=== PATIENT | female | born 1960 | race Caucasian/White ===

== ENCOUNTER 2016-04-11 23:27 | Inpatient (IN) | payer MEDICARE, OTHER ==
[~2016-04-11] VITALS: Ht 147.3 cm; Wt 102.1 kg
[~2016-04-11 23:27] MED LIST: ASPI81TA9 PO; BUME2TAB PO; GABA-585 PO; MAGN200T PO; METO5TAB4 PO; MULT-245 PO; NPH,100V4 SQ; POTA20TA12 PO
[2016-04-12] VITALS (24 sets, daily range): BP systolic 76–135; BP diastolic 46–90
[2016-04-12] MEDS ORDERED: ACETAMINOPHEN 325 MG TABLET. PO PRN (02:30)
[2016-04-12] MEDS ORDERED: ONDANSETRON PF 4 MG/2 ML VIAL. IV PRN (02:30)
[2016-04-12 02:45] LABS: BASO % 0 % (0-3); EOS % 0 % (0-3); HEMATOCRIT 29.4 % (36.0-47.0); HEMOGLOBIN 9.8 g/dL (12.0-15.5); LYMPH # 0.3 x10^3/uL (1.0-4.8); LYMPH % 2 % (24-48); MEAN CORPUSCULAR HEMOGLOBIN 30 pg (25-35); MEAN CORPUSCULAR HGB CONC 33 g/dL (31-37); MEAN CORPUSCULAR VOLUME 91 fL (79-100); MONO % 3 % (0-9); NEUT % 95 % (31-73); PLATELET COUNT 76 x10^3/uL (140-400); RED BLOOD COUNT 3.22 x10^6/uL (3.50-5.40); RED CELL DISTRIBUTION WIDTH 15.6 % (11.5-14.5)
[2016-04-12] MEDS: FENTANYL PF 100 MCG/2 ML VIAL. IV PRN ×4 (02:59→20:55)
[2016-04-12 03:00] LABS: CALCIUM 7.9 mg/dL (8.5-10.1); CREATININE 3.9 mg/dL (0.6-1.0); POTASSIUM 5.7 mmol/L (3.5-5.1)
[2016-04-12 03:15] LABS: ALBUMIN 2.5 g/dL (3.4-5.0); ALBUMIN/GLOBULIN RATIO 0.7 (1.0-1.7); MAGNESIUM 1.5 mg/dL (1.8-2.4); TOTAL BILIRUBIN 0.9 mg/dL (0.2-1.0); TOTAL PROTEIN 6.1 g/dL (6.4-8.2)
[2016-04-12] MEDS: ACETAMINOPHEN 650 MG SUPP.RECT. PR PRN (03:36)
[2016-04-12] MEDS: NYSTATIN TOPICAL POWDER 15GM BOTTLE. TP SCH ×3 (03:42→20:55)
[2016-04-12] MEDS ORDERED: DEXTROSE 50% 25 GM / 50ML DISP.SYRIN. IV PRN (04:00)
[2016-04-12 04:31] LABS: PLT ESTIMATE DECREASED (ADEQUATE)
[2016-04-12 04:32] LABS: POLYCHROMASIA SLIGHT; TOXIC GRANULATION SLIGHT
[2016-04-12] MEDS: HALOPERIDOL LACT 5 MG/ML VIAL. IVP PRN (05:28)
[2016-04-12] MEDS: NOREPINEPHRINE VIAL 8 MG in IV NORMAL SALINE 250ML 250 ML IV PRN (05:36)
[2016-04-12] MEDS ORDERED: DIALYSIS PATIENT. MC PRN ×2 (06:30→16:30)
--- NOTE | 2016-04-12 07:53 | PDOC ---
Provider Note Provider Note Full note dictated. Unclear etiology of multiorgan failure, no clear UTI/PNA but she is septic with increased lactate, rosibel, and procal. May be simply acute on chronic syst HF. Will follow. Thx for consult ANTONELLA LANCASTER MD Apr 12, 2016 07:53
[2016-04-12] MEDS: FAMOTIDINE 20 MG/2 ML VIAL IVP SCH ×2 (08:48→20:53)
[2016-04-12] MEDS: ELECTROLYTE (ICU) PROTOCOL. MC SCH (09:00)
[2016-04-12] MEDS ORDERED: CEFTRIAXONE SODIUM 1 GM in IV NORMAL SALINE 50ML 50 ML IV SCH (09:00)
--- NOTE | 2016-04-12 09:20 | RAD ---
Single view chest History:Congestive heart failure An AP view of the chest is submitted. Comparison: 03/08/2013. Findings: There is no significant infiltrate, pleural effusion, or pneumothorax. The pericardial cardiac silhouette appears enlarged although could be accentuated by differences in technique. There is now right internal jugular venous catheter with the tip in superior vena cava. There is now single lead left electronic cardiac device. Impression: Pericardial cardiac silhouette appears somewhat more prominent than previously although possibly accentuated by differences in technique. There is no significant pleural fluid. There is now right internal jugular venous catheter, no pneumothorax.
[2016-04-12] MEDS: INSULIN ASPART 300 UNITS/3 ML INSULN.PEN SQ SCH ×3 (09:23→17:00)
--- NOTE | 2016-04-12 09:44 | PDOC1 ---
History and Physical Past Medical History Cardiovascular: HTN Pulmonary: COPD Renal/: Chronic renal failure Past Surgical History Past Surgical History: Hysterectomy Family History Family History: Diabetes, Hypertension Social History ALCOHOL: rare Current Medications Current Medications Current Medications Medications (Trade) Dose Ordered Sig/Susan Start Time Stop Time Status Last Admin Dose Admin Acetaminophen (Tylenol) 650 mg PRN Q6HRS PRN 04/12/16 03:30 04/12/16 03:36 650 MG Ceftriaxone Sodium/Sodium Chloride (Rocephin/Iv Sodium Chloride 0.9% 50ml) 50 ml @ 100 mls/hr Q24H 04/12/16 09:00 04/12/16 08:48 100 MLS/HR Dextrose 12.5 gm PRN Q15MIN PRN 04/12/16 04:00 Famotidine (Pepcid) 20 mg BID 04/12/16 09:00 04/12/16 08:48 20 MG Fentanyl Citrate (Fentanyl 2ml Vial) 25 mcg PRN Q1HR PRN 04/12/16 02:30 04/12/16 02:59 25 MCG Fentanyl Citrate 50 mcg 50 mcg PRN Q1HR PRN 04/12/16 02:30 Haloperidol Lactate (Haldol) 5 mg PRN Q6HRS PRN 04/12/16 02:30 04/12/16 05:28 5 MG Info 1 ea DAILY 04/12/16 09:00 Info 1 each 1 each PRN DAILY PRN 04/12/16 06:30 Insulin Aspart (Novolog) 0-9 UNITS TIDWMEALS 04/12/16 08:00 04/12/16 09:23 3 UNITS Levofloxacin/ Dextrose 100 ml @ 100 mls/hr 1X ONCE 04/12/16 08:00 04/12/16 08:59 DC 04/12/16 08:48 100 MLS/HR Norepinephrine Bitartrate/Sodium Chloride (Levophed Vial/ Iv Sodium Chloride 0.9% 250ml) 258 ml @ 0 mls/hr CONT PRN 04/12/16 02:30 04/12/16 05:36 3.8 MLS/HR Nystatin (Nystop) 1 gabrielle BID 04/12/16 03:30 04/12/16 09:25 1 GABRIELLE Ondansetron HCl (Zofran) 4 mg PRN Q6HRS PRN 04/12/16 02:30 Piperacillin Sod/ Tazobactam Sod 3.375 gm/Sodium Chloride 50 ml @ 100 mls/hr Q8HRS 04/12/16 14:00 Allergies Allergies Allergies Coded Allergies Type Severity Reaction Last Updated Verified sulfamethoxazole Allergy Severe Hives 03/18/13 Yes trimethoprim Allergy Severe Hives 03/18/13 Yes venom-honey bee Allergy Severe Anaphylaxis 03/18/13 Yes ROS Review of System CONSTITUTIONAL: No fever or chills EYES: No recent changes SKIN: No rash or itching Physical Exam Physical Exam GEN.: No apparent distress. Alert On room air HEENT: Head is normocephalic, atraumatic NECK: Supple. no jvd LUNGS: . rales normal effort HEART: RRR, S1, S2 present. Peripheral pulses intact ABDOMEN: Soft, nontender. Positive bowel sounds. EXTREMITIES: Without any cyanosis. NEUROLOGIC: AMS PSYCHIATRIC: AMS SKIN: No visible ulcerations Vitals Vitals Vital Signs Date Time Temp Pulse Resp B/P Pulse Ox O2 Delivery O2 Flow Rate FiO2 04/12/16 06:00 116 24 104/61 100 Nasal Cannula 2.0 04/12/16 05:00 98.9 98.9 Labs Labs Laboratory Tests Test 04/12/16 02:30 04/12/16 09:19 White Blood Count 13.0x10^3/uL (4.0-11.0) Red Blood Count 3.22x10^6/uL (3.50-5.40) Hemoglobin 9.8g/dL (12.0-15.5) Hematocrit 29.4% (36.0-47.0) Mean Corpuscular Volume 91fL (79-100) Mean Corpuscular Hemoglobin 30pg (25-35) Mean Corpuscular Hemoglobin Concent 33g/dL (31-37) Red Cell Distribution Width 15.6% (11.5-14.5) Platelet Count 76x10^3/uL (140-400) Neutrophils (%) (Auto) 95% (31-73) Lymphocytes (%) (Auto) 2% (24-48) Monocytes (%) (Auto) 3% (0-9) Eosinophils (%) (Auto) 0% (0-3) Basophils (%) (Auto) 0% (0-3) Neutrophils # (Auto) 12.3x10^3uL (1.8-7.7) Lymphocytes # (Auto) 0.3x10^3/uL (1.0-4.8) Monocytes # (Auto) 0.4x10^3/uL (0.0-1.1) Eosinophils # (Auto) 0.0x10^3/uL (0.0-0.7) Basophils # (Auto) 0.0x10^3/uL (0.0-0.2) Segmented Neutrophils % 54% (35-66) Band Neutrophils % 40% (0-9) Lymphocytes % 1% (24-48) Atypical Lymphocytes % (Manual) 1% (0-0) Monocytes % 2% (0-10) Metamyelocytes % 2% (0-0) Toxic Granulation Slight Platelet Estimate Decreased (ADEQUATE) Polychromasia Slight Sodium Level 128mmol/L (136-145) Potassium Level 5.7mmol/L (3.5-5.1) Chloride Level 95mmol/L (98-107) Carbon Dioxide Level 19mmol/L (21-32) Anion Gap 14 (6-14) Blood Urea Nitrogen 77mg/dL (7-20) Creatinine 3.9mg/dL (0.6-1.0) Estimated GFR (Cockcroft-Gault) 12.0 BUN/Creatinine Ratio 20 (6-20) Glucose Level 318mg/dL (70-99) Lactic Acid Level 5.3mmol/L (0.4-2.0) Calcium Level 7.9mg/dL (8.5-10.1) Magnesium Level 1.5mg/dL (1.8-2.4) Total Bilirubin 0.9mg/dL (0.2-1.0) Aspartate Amino Transf (AST/SGOT) 907U/L (15-37) Alanine Aminotransferase (ALT/SGPT) 751U/L (14-59) Alkaline Phosphatase 50U/L (46-116) Troponin I Quantitative 2.934ng/mL (0.000-0.055) Total Protein 6.1g/dL (6.4-8.2) Albumin 2.5g/dL (3.4-5.0) Albumin/Globulin Ratio 0.7 (1.0-1.7) Procalcitonin 73.42ng/mL (0.00-0.10) Glucose (Fingerstick) 204mg/dL (70-99) Laboratory Tests Test 04/12/16 02:30 04/12/16 09:19 White Blood Count 13.0x10^3/uL (4.0-11.0) Red Blood Count 3.22x10^6/uL (3.50-5.40) Hemoglobin 9.8g/dL (12.0-15.5) Hematocrit 29.4% (36.0-47.0) Mean Corpuscular Volume 91fL (79-100) Mean Corpuscular Hemoglobin 30pg (25-35) Mean Corpuscular Hemoglobin Concent 33g/dL (31-37) Red Cell Distribution Width 15.6% (11.5-14.5) Platelet Count 76x10^3/uL (140-400) Neutrophils (%) (Auto) 95% (31-73) Lymphocytes (%) (Auto) 2% (24-48) Monocytes (%) (Auto) 3% (0-9) Eosinophils (%) (Auto) 0% (0-3) Basophils (%) (Auto) 0% (0-3) Neutrophils # (Auto) 12.3x10^3uL (1.8-7.7) Lymphocytes # (Auto) 0.3x10^3/uL (1.0-4.8) Monocytes # (Auto) 0.4x10^3/uL (0.0-1.1) Eosinophils # (Auto) 0.0x10^3/uL (0.0-0.7) Basophils # (Auto) 0.0x10^3/uL (0.0-0.2) Segmented Neutrophils % 54% (35-66) Band Neutrophils % 40% (0-9) Lymphocytes % 1% (24-48) Atypical Lymphocytes % (Manual) 1% (0-0) Monocytes % 2% (0-10) Metamyelocytes % 2% (0-0) Toxic Granulation Slight Platelet Estimate Decreased (ADEQUATE) Polychromasia Slight Sodium Level 128mmol/L (136-145) Potassium Level 5.7mmol/L (3.5-5.1) Chloride Level 95mmol/L (98-107) Carbon Dioxide Level 19mmol/L (21-32) Anion Gap 14 (6-14) Blood Urea Nitrogen 77mg/dL (7-20) Creatinine 3.9mg/dL (0.6-1.0) Estimated GFR (Cockcroft-Gault) 12.0 BUN/Creatinine Ratio 20 (6-20) Glucose Level 318mg/dL (70-99) Lactic Acid Level 5.3mmol/L (0.4-2.0) Calcium Level 7.9mg/dL (8.5-10.1) Magnesium Level 1.5mg/dL (1.8-2.4) Total Bilirubin 0.9mg/dL (0.2-1.0) Aspartate Amino Transf (AST/SGOT) 907U/L (15-37) Alanine Aminotransferase (ALT/SGPT) 751U/L (14-59) Alkaline Phosphatase 50U/L (46-116) Troponin I Quantitative 2.934ng/mL (0.000-0.055) Total Protein 6.1g/dL (6.4-8.2) Albumin 2.5g/dL (3.4-5.0) Albumin/Globulin Ratio 0.7 (1.0-1.7) Procalcitonin 73.42ng/mL (0.00-0.10) Glucose (Fingerstick) 204mg/dL (70-99) VTE Prophylaxis Ordered VTE Prophylaxis Devices: Yes VTE Pharmacological Prophylaxi: Contraindicated TEDDY CARLSON MD Apr 12, 2016 09:44
[2016-04-12] MEDS ORDERED: CRESTOR20 MG PO (10:02)
[2016-04-12] MEDS ORDERED: GABA-586 PO (10:02)
[2016-04-12] MEDS ORDERED: LISI-338 PO (10:02)
[2016-04-12] MEDS ORDERED: PROAIR HFA8.5 GM INH (10:02)
[2016-04-12] MEDS ORDERED: GLIM4TAB2 PO (10:02)
[2016-04-12] MEDS ORDERED: CHLO25TA PO ×2 (10:02→10:06)
[2016-04-12] MEDS ORDERED: MAGN250T5 PO (10:06)
--- NOTE | 2016-04-12 10:38 | PDOC ---
Infectious Disease Note Vital Sign Vital Signs Vital Signs Date Time Temp Pulse Resp B/P Pulse Ox O2 Delivery O2 Flow Rate FiO2 04/12/16 06:00 116 24 104/61 100 Nasal Cannula 2.0 04/12/16 05:00 98.9 98.9 Labs Lab Laboratory Tests Test 04/12/16 02:30 04/12/16 09:19 White Blood Count 13.0x10^3/uL (4.0-11.0) Red Blood Count 3.22x10^6/uL (3.50-5.40) Hemoglobin 9.8g/dL (12.0-15.5) Hematocrit 29.4% (36.0-47.0) Mean Corpuscular Volume 91fL (79-100) Mean Corpuscular Hemoglobin 30pg (25-35) Mean Corpuscular Hemoglobin Concent 33g/dL (31-37) Red Cell Distribution Width 15.6% (11.5-14.5) Platelet Count 76x10^3/uL (140-400) Neutrophils (%) (Auto) 95% (31-73) Lymphocytes (%) (Auto) 2% (24-48) Monocytes (%) (Auto) 3% (0-9) Eosinophils (%) (Auto) 0% (0-3) Basophils (%) (Auto) 0% (0-3) Neutrophils # (Auto) 12.3x10^3uL (1.8-7.7) Lymphocytes # (Auto) 0.3x10^3/uL (1.0-4.8) Monocytes # (Auto) 0.4x10^3/uL (0.0-1.1) Eosinophils # (Auto) 0.0x10^3/uL (0.0-0.7) Basophils # (Auto) 0.0x10^3/uL (0.0-0.2) Segmented Neutrophils % 54% (35-66) Band Neutrophils % 40% (0-9) Lymphocytes % 1% (24-48) Atypical Lymphocytes % (Manual) 1% (0-0) Monocytes % 2% (0-10) Metamyelocytes % 2% (0-0) Toxic Granulation Slight Platelet Estimate Decreased (ADEQUATE) Polychromasia Slight Sodium Level 128mmol/L (136-145) Potassium Level 5.7mmol/L (3.5-5.1) Chloride Level 95mmol/L (98-107) Carbon Dioxide Level 19mmol/L (21-32) Anion Gap 14 (6-14) Blood Urea Nitrogen 77mg/dL (7-20) Creatinine 3.9mg/dL (0.6-1.0) Estimated GFR (Cockcroft-Gault) 12.0 BUN/Creatinine Ratio 20 (6-20) Glucose Level 318mg/dL (70-99) Lactic Acid Level 5.3mmol/L (0.4-2.0) Calcium Level 7.9mg/dL (8.5-10.1) Magnesium Level 1.5mg/dL (1.8-2.4) Total Bilirubin 0.9mg/dL (0.2-1.0) Aspartate Amino Transf (AST/SGOT) 907U/L (15-37) Alanine Aminotransferase (ALT/SGPT) 751U/L (14-59) Alkaline Phosphatase 50U/L (46-116) Troponin I Quantitative 2.934ng/mL (0.000-0.055) Total Protein 6.1g/dL (6.4-8.2) Albumin 2.5g/dL (3.4-5.0) Albumin/Globulin Ratio 0.7 (1.0-1.7) Procalcitonin 73.42ng/mL (0.00-0.10) Glucose (Fingerstick) 204mg/dL (70-99) Objective Assessment Sepsis with hypotension. on Levophed 5 mcg. POA Lactic acidosis YAN on CKD. h/o nephrectomy Acute CHF. BNP > 350,000 ([facility]) Elevated LFTs Diabetes mellitus Type I Pacemaker/defibrillator Obesity Plan Plan of Care One time dose vanc at [facility]. Hold further doses given renal function Zosyn and one time dose of Levaquin added per Dr. Lamar Tang, dose adjusted for renal failure d/c Rocephin HDC to be placed in anticipation for dialysis later today BC from [facility] pending. UA neg Repeat labs in AM Records [facility] reviewed. D/w Dr Barrera and RN Critically ill Thank you [phone] Attending Co-Sign The patient was seen and interviewed as well as examined at the bedside. The chart was reviewed. The case was discussed. Agree with the plan of care. ANTONIO BULLARD APRN Apr 12, 2016 10:38 DRISS TANG MD Apr 12, 2016 13:07
--- NOTE | 2016-04-12 10:56 | CONS ---
DATE OF CONSULTATION: 04/12/2016 REASON FOR CONSULTATION: Acute heart failure. HISTORY OF PRESENT ILLNESS: The patient is a 55-year-old woman, who has multiple comorbidities as noted below, who has been admitted to the [facility] Intensive Care Unit as transferred from [facility]. She apparently presented there with mental status changes and per family this is apparently not her baseline. She was remotely admitted 2 years ago with heart failure symptoms and has chronic baseline CKD and history of noncompliance. Upon admission to the Emergency Department at [facility], she was noted to multiple laboratory abnormalities as noted below with evidence of multiorgan failure and was transferred to the ICU here [place] for further evaluation and treatment. Overnight, she has had blood pressure lability with hypotensive episodes requiring norepinephrine drip. Presently, the patient is unable provide any history due to mental status changes. She currently is plan to have dialysis initiated for her worsening chronic kidney disease. PAST MEDICAL HISTORY: 1. Presumed ischemic cardiomyopathy or nonischemic cardiomyopathy with status post ICD. 2. End-stage renal disease. 3. Hypertension. 4. Obesity. 5. Dyslipidemia. FAMILY HISTORY: Unavailable due to the patient's mental status. SOCIAL HISTORY: Unavailable again due to the patient's mental status. ALLERGIES: TO ANTIBIOTICS AND HONEY BEES. REVIEW OF SYSTEMS: Unable to perform due to the patient's mental status. PHYSICAL EXAMINATION: VITAL SIGNS: Afebrile, tachycardiac with heart rate of 118, respiratory rate 24, blood pressure 104/61, pulse ox 100% on 2 liters. GENERAL: She is alert and oriented to self only, but does not respond to commands appropriately. She is morbidly obese. CARDIAC EXAM: Regular rate and rhythm without any significant murmurs, rubs or gallops. LUNGS: Fairly clear to auscultation bilaterally anteriorly. ABDOMEN: Obese, nontender, nondistended. EXTREMITIES: Do not have any significant edema. There are cool to touch. NEUROLOGIC: No focal deficits or lateralizing signs, but she is not alert and oriented as noted above. MUSCULOSKELETAL: No obvious trauma was noted. DIAGNOSTIC STUDIES: Hemoglobin 9.8, platelets 76, creatinine 3.9, potassium 5.7, AST 907, ALT 751, troponin 2.9, procalcitonin 73.4. Urinalysis was unremarkable from [facility]. Chest x-ray reveals cardiomegaly with mild diffuse pulmonary vascular congestion. No obvious abnormalities noted on telemetry. IMPRESSION: 1. Multiorgan systemic failure likely secondary to either an infectious process, although no obvious infectious etiology is evident given near normal urinalysis and no clear infiltrate on chest x-ray. 2. Likely [id number] systolic heart failure. 3. Non-ST elevation myocardial infarction, likely secondary to multiorgan systemic failure. 4. Anemia and thrombocytopenia, concerning for underlying septic process. 5. Acute kidney injury with progression end-stage renal disease likely requiring hemodialysis. RECOMMENDATIONS: 1. Would agree with continued broad spectrum antibiotics for presumed septic picture, although this may all be secondary to progressive heart failure as evidenced by her possible congestive hepatopathy, low output, renal failure and pulmonary vascular congestion. 2. We will obtain an echocardiogram to assess her LV systolic function, but at this present time, would likely continue use of norepinephrine and/or Dobutamine as necessary to help maintain pressures, if necessary when dialysis is initiated. Continue supportive care. We will follow along closely. No obvious indication for heparinization at this time given her anemia and severe thrombocytopenia. We will reassess the situation as necessary and continue trending cardiac enzymes. Thank you for this consultation. ANTONELLA LANCASTER MD DR: UMER/jenna JOB#: [id number] / [id number] GLENROY
--- NOTE | 2016-04-12 12:33 | PDOC ---
G I PROGRESS NOTE Reason for Follow-up Confusions/increased LFTS Subjective Alert to Place Physical Exam Lungs decreased BS CV S1 S2 ABD distended, hypoactive BS Review of Relevant I have reviewed the following items nelda (where applicable) has been applied. Labs Laboratory Tests Test 04/12/16 02:30 04/12/16 09:19 White Blood Count 13.0x10^3/uL (4.0-11.0) Red Blood Count 3.22x10^6/uL (3.50-5.40) Hemoglobin 9.8g/dL (12.0-15.5) Hematocrit 29.4% (36.0-47.0) Mean Corpuscular Volume 91fL (79-100) Mean Corpuscular Hemoglobin 30pg (25-35) Mean Corpuscular Hemoglobin Concent 33g/dL (31-37) Red Cell Distribution Width 15.6% (11.5-14.5) Platelet Count 76x10^3/uL (140-400) Neutrophils (%) (Auto) 95% (31-73) Lymphocytes (%) (Auto) 2% (24-48) Monocytes (%) (Auto) 3% (0-9) Eosinophils (%) (Auto) 0% (0-3) Basophils (%) (Auto) 0% (0-3) Neutrophils # (Auto) 12.3x10^3uL (1.8-7.7) Lymphocytes # (Auto) 0.3x10^3/uL (1.0-4.8) Monocytes # (Auto) 0.4x10^3/uL (0.0-1.1) Eosinophils # (Auto) 0.0x10^3/uL (0.0-0.7) Basophils # (Auto) 0.0x10^3/uL (0.0-0.2) Segmented Neutrophils % 54% (35-66) Band Neutrophils % 40% (0-9) Lymphocytes % 1% (24-48) Atypical Lymphocytes % (Manual) 1% (0-0) Monocytes % 2% (0-10) Metamyelocytes % 2% (0-0) Toxic Granulation Slight Platelet Estimate Decreased (ADEQUATE) Polychromasia Slight Sodium Level 128mmol/L (136-145) Potassium Level 5.7mmol/L (3.5-5.1) Chloride Level 95mmol/L (98-107) Carbon Dioxide Level 19mmol/L (21-32) Anion Gap 14 (6-14) Blood Urea Nitrogen 77mg/dL (7-20) Creatinine 3.9mg/dL (0.6-1.0) Estimated GFR (Cockcroft-Gault) 12.0 BUN/Creatinine Ratio 20 (6-20) Glucose Level 318mg/dL (70-99) Lactic Acid Level 5.3mmol/L (0.4-2.0) Calcium Level 7.9mg/dL (8.5-10.1) Magnesium Level 1.5mg/dL (1.8-2.4) Total Bilirubin 0.9mg/dL (0.2-1.0) Aspartate Amino Transf (AST/SGOT) 907U/L (15-37) Alanine Aminotransferase (ALT/SGPT) 751U/L (14-59) Alkaline Phosphatase 50U/L (46-116) Troponin I Quantitative 2.934ng/mL (0.000-0.055) Total Protein 6.1g/dL (6.4-8.2) Albumin 2.5g/dL (3.4-5.0) Albumin/Globulin Ratio 0.7 (1.0-1.7) Procalcitonin 73.42ng/mL (0.00-0.10) Glucose (Fingerstick) 204mg/dL (70-99) Laboratory Tests Test 04/12/16 02:30 04/12/16 09:19 White Blood Count 13.0x10^3/uL (4.0-11.0) Red Blood Count 3.22x10^6/uL (3.50-5.40) Hemoglobin 9.8g/dL (12.0-15.5) Hematocrit 29.4% (36.0-47.0) Mean Corpuscular Volume 91fL (79-100) Mean Corpuscular Hemoglobin 30pg (25-35) Mean Corpuscular Hemoglobin Concent 33g/dL (31-37) Red Cell Distribution Width 15.6% (11.5-14.5) Platelet Count 76x10^3/uL (140-400) Neutrophils (%) (Auto) 95% (31-73) Lymphocytes (%) (Auto) 2% (24-48) Monocytes (%) (Auto) 3% (0-9) Eosinophils (%) (Auto) 0% (0-3) Basophils (%) (Auto) 0% (0-3) Neutrophils # (Auto) 12.3x10^3uL (1.8-7.7) Lymphocytes # (Auto) 0.3x10^3/uL (1.0-4.8) Monocytes # (Auto) 0.4x10^3/uL (0.0-1.1) Eosinophils # (Auto) 0.0x10^3/uL (0.0-0.7) Basophils # (Auto) 0.0x10^3/uL (0.0-0.2) Segmented Neutrophils % 54% (35-66) Band Neutrophils % 40% (0-9) Lymphocytes % 1% (24-48) Atypical Lymphocytes % (Manual) 1% (0-0) Monocytes % 2% (0-10) Metamyelocytes % 2% (0-0) Toxic Granulation Slight Platelet Estimate Decreased (ADEQUATE) Polychromasia Slight Sodium Level 128mmol/L (136-145) Potassium Level 5.7mmol/L (3.5-5.1) Chloride Level 95mmol/L (98-107) Carbon Dioxide Level 19mmol/L (21-32) Anion Gap 14 (6-14) Blood Urea Nitrogen 77mg/dL (7-20) Creatinine 3.9mg/dL (0.6-1.0) Estimated GFR (Cockcroft-Gault) 12.0 BUN/Creatinine Ratio 20 (6-20) Glucose Level 318mg/dL (70-99) Lactic Acid Level 5.3mmol/L (0.4-2.0) Calcium Level 7.9mg/dL (8.5-10.1) Magnesium Level 1.5mg/dL (1.8-2.4) Total Bilirubin 0.9mg/dL (0.2-1.0) Aspartate Amino Transf (AST/SGOT) 907U/L (15-37) Alanine Aminotransferase (ALT/SGPT) 751U/L (14-59) Alkaline Phosphatase 50U/L (46-116) Troponin I Quantitative 2.934ng/mL (0.000-0.055) Total Protein 6.1g/dL (6.4-8.2) Albumin 2.5g/dL (3.4-5.0) Albumin/Globulin Ratio 0.7 (1.0-1.7) Procalcitonin 73.42ng/mL (0.00-0.10) Glucose (Fingerstick) 204mg/dL (70-99) Medications Current Medications Acetaminophen (Tylenol) 650 mg PRN Q6HRS PRN PO Headaches, Temp > 101.5'; Start 04/12/16 at 02:30 Ondansetron HCl (Zofran) 4 mg PRN Q6HRS PRN IV NAUSEA/VOMITING; Start 04/12/16 at 02:30 Famotidine (Pepcid) 20 mg BID IVP Last administered on 04/12/16 08:48; Start 04/12/16 at 09:00 Info 1 ea DAILY MC ; Start 04/12/16 at 09:00 Fentanyl Citrate (Fentanyl 2ml Vial) 25 mcg PRN Q1HR PRN IV COMM Last administered on 04/12/16 02:59; Start 04/12/16 at 02:30 Fentanyl Citrate 50 mcg 50 mcg PRN Q1HR PRN IV COMM; Start 04/12/16 at 02:30 Norepinephrine Bitartrate/Sodium Chloride (Levophed Vial/ Iv Sodium Chloride 0.9 % 250ml) 258 ml @ 0 mls/hr CONT PRN IV SEE I/O RECORD Last administered on 04/12 05:36; Start 04/12/16 at 02:30 Haloperidol Lactate (Haldol) 5 mg PRN Q6HRS PRN IVP AGITATION Last administered on 04/12/16 05:28; Start 04/12/16 at 02:30 Acetaminophen (Tylenol) 650 mg PRN Q6HRS PRN WI MILD PAIN / TEMP Last administered on 04/12/16 03:36; Start 04/12/16 at 03:30 Nystatin (Nystop) 1 gabrielle BID TP Last administered on 04/12/16 09:25; Start 01/16 at 03:30 Insulin Aspart (Novolog) 0-9 UNITS TIDWMEALS SQ Last administered on 04/12/16 09:23; Start 04/12/16 at 08:00 Dextrose 12.5 gm PRN Q15MIN PRN IV SEE COMMENTS; Start 04/12/16 at 04:00 Info 1 each 1 each PRN DAILY PRN MC SEE COMMENTS; Start 04/12/16 at 06:30 Piperacillin Sod/ Tazobactam Sod 3.375 gm/Sodium Chloride 50 ml @ 100 mls/hr Q8HRS IV ; Start 04/12/16 at 14:00; Stop 04/12/16 at 14:00; Status DC Levofloxacin/ Dextrose 100 ml @ 100 mls/hr 1X ONCE IV Last administered on 08:48; Start 04/12/16 at 08:00; Stop 04/12/16 at 08:59; Status DC Ceftriaxone Sodium 1 gm/ Sodium Chloride 50 ml @ 100 mls/hr Q24H IV Last administered on 04/12/16 08:48; Start 04/12/16 at 09:00; Stop 04/12/16 at 10:25 ; Status DC Piperacillin Sod/ Tazobactam Sod/ Sodium Chloride (Zosyn/Iv Sodium Chloride 0.9 % 50ml) 50 ml @ 100 mls/hr Q8HRS IV ; Start 04/12/16 at 14:00 Active Scripts Active Reported Chlorthalidone 25 Mg Tablet 1 Tab PO DAILY Magnesium (Magnesium Oxide) 250 Mg Tablet 250 Mg PO DAILY Glimepiride 4 Mg Tablet 1 Tab PO BID Proair Hfa Inhaler (Albuterol Sulfate) 8.5 Gm Hfa.aer.ad 1 Puff INH PRN Q6HRS PRN Chlorthalidone 25 Mg Tablet 1 Tab PO DAILY Lisinopril 5 Mg Tablet 1 Tab PO DAILY Crestor (Rosuvastatin Calcium) 20 Mg Tablet 1 Tab PO HS Gabapentin 300 Mg Capsule 300 Mg PO HS Multi Vitamin Daily (Multivitamin) 1 Each Tablet 1 Each PO DAILY Bumetanide 2 Mg Tablet 2 Mg PO DAILY Aspirin Ec (Aspirin) 81 Mg Tablet.dr 81 Mg PO DAILY Potassium Chloride 20 Meq Tab.er.prt 20 Meq PO DAILY Vitals/I & O Vital Sign - Last 24 Hours 04/12/16 04/12/16 04/12/16 04/12/16 02:30 02:45 02:59 03:00 Temp 101.7 101.7 Pulse 126 129 126 Resp 34 30 30 24 B/P 111/63 100/63 117/68 Pulse Ox 100 100 100 O2 Delivery Nasal Cannula Nasal Cannula Nasal Cannula Nasal Cannula O2 Flow Rate 2.0 2.0 2.0 2.0 04/12/16 04/12/16 04/12/16 04/12/16 03:29 03:30 04:00 04:00 Pulse 126 122 Resp 22 24 24 B/P 112/69 121/90 Pulse Ox 100 100 O2 Delivery Nasal Cannula Nasal Cannula Nasal Cannula Nasal Cannula O2 Flow Rate 2.0 2.0 2.0 2.0 04/12/16 04/12/16 05:00 06:00 Temp 98.9 98.9 Pulse 118 116 Resp 24 24 B/P 80/55 104/61 Pulse Ox 100 100 O2 Delivery Nasal Cannula Nasal Cannula O2 Flow Rate 2.0 2.0 Intake and Output 04/11/16 04/11/16 04/12/16 15:00 23:00 07:00 Intake Total 15 ml Output Total 40 ml Balance -25 ml Problem List Hepatitis - most likely ischemic in nature with recent cardiac event, underlying cirrhosis is consistent with thrombocytopenia, Plan supportive therapy with poor prognosis ammonia level ROMI CABRERA MD Apr 12, 2016 12:33
[2016-04-12] MEDS ORDERED: LIDOCAINE 1% / SOD BICARB 8.4% 20 ML VIAL. IJ ONE (12:45)
[2016-04-12] MEDS ORDERED: HEPARIN for IV BOLUS 10,000 UNIT/10 ML VIAL. ONE (12:51)
--- NOTE | 2016-04-12 13:21 | PDOC ---
BRIEF OPERATIVE NOTE Pre-Op Diagnosis ARF Post-Op Diagnosis same Procedure Performed RIJ temp HD Catheter Surgeon Nicole Anesthesia Type: Local Findings 15 cm temp hd with excellent manual flow rates Complications no immediate DAVE SNEED MD Apr 12, 2016 13:21
--- NOTE | 2016-04-12 13:35 | RAD ---
Procedure: Temporary hemodialysis catheter placement at the bedside. Clinical Indication: 55-year-old requiring hemodialysis Sedation: Local anesthesia only Antibiotics: None Fluoro Time: Not applicable Contrast: None Sterility: All elements of maximal sterile barrier technique including the use of a cap, mask, sterile gown, sterile gloves, large sterile sheet, appropriate hand hygiene, and 2% chlorhexidine for cutaneous antisepsis (or acceptable alternative antiseptic per current guidelines) were followed for this procedure. Consent: The procedure was explained in its entirety to the patient or the patients designated operations support representative by a member of the treatment team, including a discussion of the risks, benefits and commonly accepted alternatives to the procedure, as well as the expected consequences of no therapy whatsoever. Discussion of the risks included, but was not limited to, those that are most frequent and those that are rare but possibly severe or life-threatening, as well as the possibility of unforeseen complications. Technique and Findings: Following informed consent, the patient was prepped and draped in the usual sterile fashion. Ultrasound interrogation of the right neck revealed patency and compressibility of the right internal jugular vein. A 21-gauge micropuncture needle was used to gain access to this vein after 1% Lidocaine was used to achieve local anesthesia. A hardcopy ultrasound image was recorded. The needle was exchanged over a wire for serial dilators followed by a 15 7-m Schon temporary hemodialysis catheter which was deployed in the expected location of the mid right atrium. The catheter flow rates were assessed manually and found to be excellent. The catheter was then flushed, packed with Heparin, capped, and sutured to the skin. Chest x-ray was then obtained to assess line position. Complications: No immediate Impression: 1. Ultrasound guided placement of a temporary hemodialysis catheter which exhibits excellent manual flow rates as described.
--- NOTE | 2016-04-12 13:51 | RAD ---
Single view chest History:Line placement An AP view of the chest is submitted. Comparison: Exam earlier the same day. Findings: There is now a right internal jugular dialysis type catheter with the tip in superior vena cava near cavoatrial junction, no pneumothorax. There is again another right internal jugular venous catheter with tip in superior vena cava. There is again single lead left electronic cardiac device. Pericardial cardiac silhouette is unchanged. There is no pleural fluid or lobar consolidation. Impression: There is now a right internal jugular dialysis catheter with the tip in superior vena cava, no pneumothorax.
[2016-04-12] MEDS ORDERED: PIPERACILLIN/TAZOBACTAM 3.375 GM in IV NORMAL SALINE 50ML 50 ML IV SCH (14:00)
[2016-04-12] MEDS: PIPERACILLIN/TAZOBACTAM 2.25 GM in IV NORMAL SALINE 50ML 50 ML IV SCH ×2 (15:12→22:32)
[2016-04-12] MEDS ORDERED: IV NORMAL SALINE 1000ML BAG 1,000 ML IV PRN (16:27)
[2016-04-12] MEDS ORDERED: DIPHENHYDRAMINE 50 MG/ML VIAL IV PRN ×2 (16:30)
[2016-04-12] MEDS ORDERED: MIDODRINE 5 MG TABLET PO ONE (16:30)
[2016-04-12] MEDS: ALBUMIN HUMAN 25% 200 ML IV PRN ×2 (16:52→17:21)
[2016-04-12] MEDS: IV NORMAL SALINE 1000ML BAG 1,000 ML IV SCH (18:14)
[2016-04-12] MEDS ORDERED: IV NORMAL SALINE 250ML 250 ML IV ONE (22:30)
--- NOTE | 2016-04-12 23:25 | HP ---
ADMIT DATE: 04/12/2016 CHIEF COMPLAINT: Sepsis. HISTORY OF PRESENT ILLNESS: A 55-year-old female patient with several comorbid conditions brought to the [facility] for altered mental status and we did get call from ER physician for transfer of care as the patient appears to be septic and made several subspecialty support. She has been transferred to critical care unit for sepsis, renal failure and elevated troponins and altered mental status. At the time of my examination this morning, the patient is responding to questions; however, not able to provide me any history and she appeared confused and unknown baseline. As per the RN, family members think the patient is noncompliant with her medications and she has been slowly declining, unknown period of altered mental status. PAST MEDICAL HISTORY: Cardiomyopathy with ICD, end-stage renal disease, hypertension, obesity, hyperlipidemia. FAMILY HISTORY: Not able to obtain. PERSONAL HISTORY: Not able to obtain. ALLERGIES: BACTRIM, VENOM HONEY BEE. REVIEW OF SYSTEMS: Not able to obtain. PHYSICAL EXAMINATION: Please see my electronic H and P. Chest x-ray, as per the report, vascular congestion is seen. LABORATORY FINDINGS: Sodium ____, potassium 5.7, chloride is 95, carbon dioxide 19, gap is 14. BUN is 77, creatinine 3.9, GFR 12.0, lactic acid 5.3, calcium 7.5, magnesium is 1.5. AST is ____, ALT is 751. Troponin is 2.9. Total protein is 6.1. Procalcitonin is 73.42. Hematology: WBC 13.0, hemoglobin 9.8, MCV is 91, platelets 76, neutrophils 95%, segmented neutrophils 64, bands 40%, toxic granulation slight. IMAGING STUDIES: Repeat chest x-ray, no pneumothorax seen. ASSESSMENT: 1. Sepsis, present on admission, multiorgan involvement. 2. Suspected lpiii-rv-apdyuis congestive heart failure. 3. Elevated LFTs. 4. Leukocytosis. 5. Thrombocytopenia. 6. Anemia. 7. Hypomagnesemia. 8. Elevated lactate. 9. Septic shock. 10. Hyperkalemia. 11. Metabolic encephalopathy PLAN: 1. The patient has been admitted to critical care unit and currently she is on broad spectrum antibiotics. She received Lasix; however, she did not make urine and the patient is getting emergent tunnel catheter for hemodialysis and she is hemodialyzed today. 2. Currently, she is on Levophed GTT. 3. Also, the patient was started on heparin for ACS protocol and cardiology has been following. later it elevated troponin due to sepsis 4. We will consult neurology for further recommendations; however, I think, at this time, her encephalopathy is due to severe sepsis and renal failure. 5. Also, we will check ammonia. 6. Echocardiogram ordered. 7. Overall, the patient's prognosis is very poor and she is in critical condition, continue supportive care. Total critical care time spent is 31 minutes. TEDDY CARLSON MD DR: STEFANIE/jenna JOB#: [id number] / [id number] [place]
--- NOTE | 2016-04-12 23:58 | CONS ---
DATE OF CONSULTATION: REQUESTING PHYSICIAN: Hospitalist. REASON FOR CONSULTATION: Renal failure. HISTORY OF PRESENT ILLNESS: This is a 55-year-old female who presented to the hospital and transferred from [facility]. She is noted to have change in mentation with renal failure and metabolic acidosis and lactic acidosis. The patient has history of being uninephric. Her laboratories on presentation were notable for white count of 13. BUN 37, creatinine 3.9, GFR of 12, potassium 5.7, CO2 was 19. Elevated lactate level. PAST MEDICAL HISTORY: Chronic kidney disease, likely stage 3, hypertension, hyperlipidemia, obesity, ischemic cardiomyopathy, uninephric state. ALLERGIES: SULFA, TRIMETHOPRIM, VENOM HONEYBEE. FAMILY HISTORY: Unknown. SOCIAL HISTORY: The patient has an attending family. They are not at the bedside at this time. REVIEW OF SYSTEMS: Unobtainable. The patient has confusion. PHYSICAL EXAMINATION: GENERAL: The patient appears acute chronically ill, she is confused. HEENT: Clear. NECK: No increased JVD, no thyromegaly, no mass. LUNGS: Clear. CARDIAC: Without S3 or rub. ABDOMEN: Obese, bowel sounds present, nontender. EXTREMITIES: No edema. NEUROPSYCHIATRIC: Confused. LABORATORY DATA: As above. IMPRESSION: Renal failure - ____ underlying chronic kidney disease, likely stage III in this uninephric patient. She now has worsening renal function in all likelihood. This could either be a progression of her underlying chronic disease or could be an acute process. The lactic acidosis would favor an acute process on chronic kidney disease. 2. Hyponatremia. 3. Hyperkalemia. 4. Metabolic acidosis with elevated lactate level. 5. Elevation ____. RECOMMENDATIONS: 1. We will proceed with acute dialysis for management of azotemia and metabolic acidosis and hyperkalemia. 2. Infectious Disease is evaluating for sepsis. 3. Cardiology is evaluating for cardiogenic related shock. 4. We will obtain renal ultrasound. 5. We will follow. ANA DONALDSON MD DR: JOSE ARMANDO/jenna JOB#: [id number] / [id number]
[2016-04-13] VITALS (24 sets, daily range): BP systolic 91–140; BP diastolic 44–78
[2016-04-13] MEDS: FENTANYL PF 100 MCG/2 ML VIAL. IV PRN ×3 (00:27→19:39)
[2016-04-13] MEDS: NOREPINEPHRINE VIAL 8 MG in IV NORMAL SALINE 250ML 250 ML IV PRN (02:55)
[2016-04-13] MEDS: PIPERACILLIN/TAZOBACTAM 2.25 GM in IV NORMAL SALINE 50ML 50 ML IV SCH ×3 (04:59→21:30)
[2016-04-13 07:16] LABS: BASO % 0 % (0-3); EOS % 2 % (0-3); HEMATOCRIT 26.6 % (36.0-47.0); HEMOGLOBIN 8.8 g/dL (12.0-15.5); LYMPH # 0.6 x10^3/uL (1.0-4.8); LYMPH % 5 % (24-48); MEAN CORPUSCULAR HEMOGLOBIN 30 pg (25-35); MEAN CORPUSCULAR HGB CONC 33 g/dL (31-37); MEAN CORPUSCULAR VOLUME 92 fL (79-100); MONO % 5 % (0-9); NEUT % 88 % (31-73); PLATELET COUNT 78 x10^3/uL (140-400); RED CELL DISTRIBUTION WIDTH 15.5 % (11.5-14.5); WHITE BLOOD COUNT 12.6 x10^3/uL (4.0-11.0)
[2016-04-13 07:36] LABS: ALBUMIN 2.9 g/dL (3.4-5.0); ALBUMIN/GLOBULIN RATIO 0.9 (1.0-1.7); CALCIUM 7.9 mg/dL (8.5-10.1); CREATININE 3.6 mg/dL (0.6-1.0); GFR 13.2; POTASSIUM 4.8 mmol/L (3.5-5.1); TOTAL BILIRUBIN 2.9 mg/dL (0.2-1.0)
[2016-04-13] MEDS: INSULIN ASPART 300 UNITS/3 ML INSULN.PEN SQ SCH ×3 (08:00→17:06)
--- NOTE | 2016-04-13 08:28 | PDOC ---
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 clean (04/12) Labs Lab Laboratory Tests Test 04/12/16 09:19 04/12/16 12:25 04/12/16 14:58 04/12/16 15:00 Glucose (Fingerstick) 204mg/dL (70-99) 185mg/dL (70-99) Troponin I Quantitative 3.237ng/mL (0.000-0.055) Ammonia 31mcmol/L (11-34) Test 04/12/16 17:22 04/13/16 06:34 Glucose (Fingerstick) 135mg/dL (70-99) White Blood Count 12.6x10^3/uL (4.0-11.0) Red Blood Count 2.90x10^6/uL (3.50-5.40) Hemoglobin 8.8g/dL (12.0-15.5) Hematocrit 26.6% (36.0-47.0) Mean Corpuscular Volume 92fL (79-100) Mean Corpuscular Hemoglobin 30pg (25-35) Mean Corpuscular Hemoglobin Concent 33g/dL (31-37) Red Cell Distribution Width 15.5% (11.5-14.5) Platelet Count 78x10^3/uL (140-400) Neutrophils (%) (Auto) 88% (31-73) Lymphocytes (%) (Auto) 5% (24-48) Monocytes (%) (Auto) 5% (0-9) Eosinophils (%) (Auto) 2% (0-3) Basophils (%) (Auto) 0% (0-3) Neutrophils # (Auto) 11.0x10^3uL (1.8-7.7) Lymphocytes # (Auto) 0.6x10^3/uL (1.0-4.8) Monocytes # (Auto) 0.6x10^3/uL (0.0-1.1) Eosinophils # (Auto) 0.3x10^3/uL (0.0-0.7) Basophils # (Auto) 0.0x10^3/uL (0.0-0.2) Lactic Acid Level 3.5mmol/L (0.4-2.0) Micro BC NGTD from [facility] 04/11 Objective Assessment Sepsis with hypotension. on Levophed POA Lactic acidosis, improving YAN on CKD. h/o nephrectomy. Now on HD Acute CHF. BNP > 350,000 ([facility]) Elevated LFTs Diabetes mellitus Type I Pacemaker/defibrillator Obesity Plan Plan of Care Zosyn One time dose vanc at [facility]. Hold further doses given renal function One time dose Levaquin 04/12. BC from [facility] NGTD f/u today's CMP & US Critically ill Attending Co-Sign The patient was seen and interviewed as well as examined at the bedside. The chart was reviewed. The case was discussed. Agree with the plan of care. ANTONIO BULLARD APRN Apr 13, 2016 08:28 DRISS TANG MD Apr 13, 2016 13:19
[2016-04-13] MEDS: ELECTROLYTE (ICU) PROTOCOL. MC SCH (09:00)
--- NOTE | 2016-04-13 09:06 | PDOC ---
PROGRESS NOTES Chief Complaint Chief Complaint A/P 1. Septic Scheck POA 2. Suspected [id number] congestive heart failure. 3. Elevated LFTs, possible due to shock POA 4. Elevated troponin POA 5. Elevated D dimer POA 6. Metabolic encephalopathy POA 7. Renal failure POA 8. Respiratory failure hypoxic Plan On Levophed gtt, MAP > 65. 1L bolus, add NS total 125ml/s hr Blood cx add PPN CT head US abdomen pending echo pending LDH, PT/INT PENDING Hematology consult Broad spectrum abx, ID following, Zosyn, No source of external infection Intake and out HD per Nephrology d/w GI Prognosis poor/ guarded, cc time 35 min. Vitals Vitals Vital Signs Date Time Temp Pulse Resp B/P Pulse Ox O2 Delivery O2 Flow Rate FiO2 04/13/16 07:00 128 24 96/78 97 Nasal Cannula 2.0 04/13/16 04:00 99.1 99.1 Physical Exam General: Alert Heart: Normal S1, Normal S2 Lungs: Clear Abdomen: Normal bowel sounds, Soft Extremities: No clubbing Labs LABS Laboratory Tests Test 04/12/16 09:19 04/12/16 12:25 04/12/16 14:58 04/12/16 15:00 Glucose (Fingerstick) 204mg/dL (70-99) 185mg/dL (70-99) Troponin I Quantitative 3.237ng/mL (0.000-0.055) Ammonia 31mcmol/L (11-34) Test 04/12/16 17:22 04/13/16 06:34 Glucose (Fingerstick) 135mg/dL (70-99) White Blood Count 12.6x10^3/uL (4.0-11.0) Red Blood Count 2.90x10^6/uL (3.50-5.40) Hemoglobin 8.8g/dL (12.0-15.5) Hematocrit 26.6% (36.0-47.0) Mean Corpuscular Volume 92fL (79-100) Mean Corpuscular Hemoglobin 30pg (25-35) Mean Corpuscular Hemoglobin Concent 33g/dL (31-37) Red Cell Distribution Width 15.5% (11.5-14.5) Platelet Count 78x10^3/uL (140-400) Neutrophils (%) (Auto) 88% (31-73) Lymphocytes (%) (Auto) 5% (24-48) Monocytes (%) (Auto) 5% (0-9) Eosinophils (%) (Auto) 2% (0-3) Basophils (%) (Auto) 0% (0-3) Neutrophils # (Auto) 11.0x10^3uL (1.8-7.7) Lymphocytes # (Auto) 0.6x10^3/uL (1.0-4.8) Monocytes # (Auto) 0.6x10^3/uL (0.0-1.1) Eosinophils # (Auto) 0.3x10^3/uL (0.0-0.7) Basophils # (Auto) 0.0x10^3/uL (0.0-0.2) Sodium Level 137mmol/L (136-145) Potassium Level 4.8mmol/L (3.5-5.1) Chloride Level 98mmol/L (98-107) Carbon Dioxide Level 24mmol/L (21-32) Anion Gap 15 (6-14) Blood Urea Nitrogen 51mg/dL (7-20) Creatinine 3.6mg/dL (0.6-1.0) Estimated GFR (Cockcroft-Gault) 13.2 BUN/Creatinine Ratio 14 (6-20) Glucose Level 128mg/dL (70-99) Lactic Acid Level 3.5mmol/L (0.4-2.0) Calcium Level 7.9mg/dL (8.5-10.1) Total Bilirubin 2.9mg/dL (0.2-1.0) Aspartate Amino Transf (AST/SGOT) 4108U/L (15-37) Alanine Aminotransferase (ALT/SGPT) 3620U/L (14-59) Alkaline Phosphatase 57U/L (46-116) Total Protein 6.0g/dL (6.4-8.2) Albumin 2.9g/dL (3.4-5.0) Albumin/Globulin Ratio 0.9 (1.0-1.7) Comment Review of Relevant I have reviewed the following items nelda (where applicable) has been applied. Labs Laboratory Tests Test 04/12/16 02:30 2/11/17 09:19 04/12/16 12:25 04/12/16 14:58 White Blood Count 13.0x10^3/uL (4.0-11.0) Red Blood Count 3.22x10^6/uL (3.50-5.40) Hemoglobin 9.8g/dL (12.0-15.5) Hematocrit 29.4% (36.0-47.0) Mean Corpuscular Volume 91fL (79-100) Mean Corpuscular Hemoglobin 30pg (25-35) Mean Corpuscular Hemoglobin Concent 33g/dL (31-37) Red Cell Distribution Width 15.6% (11.5-14.5) Platelet Count 76x10^3/uL (140-400) Neutrophils (%) (Auto) 95% (31-73) Lymphocytes (%) (Auto) 2% (24-48) Monocytes (%) (Auto) 3% (0-9) Eosinophils (%) (Auto) 0% (0-3) Basophils (%) (Auto) 0% (0-3) Neutrophils # (Auto) 12.3x10^3uL (1.8-7.7) Lymphocytes # (Auto) 0.3x10^3/uL (1.0-4.8) Monocytes # (Auto) 0.4x10^3/uL (0.0-1.1) Eosinophils # (Auto) 0.0x10^3/uL (0.0-0.7) Basophils # (Auto) 0.0x10^3/uL (0.0-0.2) Segmented Neutrophils % 54% (35-66) Band Neutrophils % 40% (0-9) Lymphocytes % 1% (24-48) Atypical Lymphocytes % (Manual) 1% (0-0) Monocytes % 2% (0-10) Metamyelocytes % 2% (0-0) Toxic Granulation Slight Platelet Estimate Decreased (ADEQUATE) Polychromasia Slight Sodium Level 128mmol/L (136-145) Potassium Level 5.7mmol/L (3.5-5.1) Chloride Level 95mmol/L (98-107) Carbon Dioxide Level 19mmol/L (21-32) Anion Gap 14 (6-14) Blood Urea Nitrogen 77mg/dL (7-20) Creatinine 3.9mg/dL (0.6-1.0) Estimated GFR (Cockcroft-Gault) 12.0 BUN/Creatinine Ratio 20 (6-20) Glucose Level 318mg/dL (70-99) Lactic Acid Level 5.3mmol/L (0.4-2.0) Calcium Level 7.9mg/dL (8.5-10.1) Magnesium Level 1.5mg/dL (1.8-2.4) Total Bilirubin 0.9mg/dL (0.2-1.0) Aspartate Amino Transf (AST/SGOT) 907U/L (15-37) Alanine Aminotransferase (ALT/SGPT) 751U/L (14-59) Alkaline Phosphatase 50U/L (46-116) Troponin I Quantitative 2.934ng/mL (0.000-0.055) 3.237ng/mL (0.000-0.055) Total Protein 6.1g/dL (6.4-8.2) Albumin 2.5g/dL (3.4-5.0) Albumin/Globulin Ratio 0.7 (1.0-1.7) Procalcitonin 73.42ng/mL (0.00-0.10) Glucose (Fingerstick) 204mg/dL (70-99) 185mg/dL (70-99) Test 04/12/16 15:00 04/12/16 17:22 04/13/16 06:34 Ammonia 31mcmol/L (11-34) Glucose (Fingerstick) 135mg/dL (70-99) White Blood Count 12.6x10^3/uL (4.0-11.0) Red Blood Count 2.90x10^6/uL (3.50-5.40) Hemoglobin 8.8g/dL (12.0-15.5) Hematocrit 26.6% (36.0-47.0) Mean Corpuscular Volume 92fL (79-100) Mean Corpuscular Hemoglobin 30pg (25-35) Mean Corpuscular Hemoglobin Concent 33g/dL (31-37) Red Cell Distribution Width 15.5% (11.5-14.5) Platelet Count 78x10^3/uL (140-400) Neutrophils (%) (Auto) 88% (31-73) Lymphocytes (%) (Auto) 5% (24-48) Monocytes (%) (Auto) 5% (0-9) Eosinophils (%) (Auto) 2% (0-3) Basophils (%) (Auto) 0% (0-3) Neutrophils # (Auto) 11.0x10^3uL (1.8-7.7) Lymphocytes # (Auto) 0.6x10^3/uL (1.0-4.8) Monocytes # (Auto) 0.6x10^3/uL (0.0-1.1) Eosinophils # (Auto) 0.3x10^3/uL (0.0-0.7) Basophils # (Auto) 0.0x10^3/uL (0.0-0.2) Sodium Level 137mmol/L (136-145) Potassium Level 4.8mmol/L (3.5-5.1) Chloride Level 98mmol/L (98-107) Carbon Dioxide Level 24mmol/L (21-32) Anion Gap 15 (6-14) Blood Urea Nitrogen 51mg/dL (7-20) Creatinine 3.6mg/dL (0.6-1.0) Estimated GFR (Cockcroft-Gault) 13.2 BUN/Creatinine Ratio 14 (6-20) Glucose Level 128mg/dL (70-99) Lactic Acid Level 3.5mmol/L (0.4-2.0) Calcium Level 7.9mg/dL (8.5-10.1) Total Bilirubin 2.9mg/dL (0.2-1.0) Aspartate Amino Transf (AST/SGOT) 4108U/L (15-37) Alanine Aminotransferase (ALT/SGPT) 3620U/L (14-59) Alkaline Phosphatase 57U/L (46-116) Total Protein 6.0g/dL (6.4-8.2) Albumin 2.9g/dL (3.4-5.0) Albumin/Globulin Ratio 0.9 (1.0-1.7) Laboratory Tests Test 04/12/16 09:19 04/12/16 12:25 04/12/16 14:58 04/12/16 15:00 Glucose (Fingerstick) 204mg/dL (70-99) 185mg/dL (70-99) Troponin I Quantitative 3.237ng/mL (0.000-0.055) Ammonia 31mcmol/L (11-34) Test 04/12/16 17:22 04/13/16 06:34 Glucose (Fingerstick) 135mg/dL (70-99) White Blood Count 12.6x10^3/uL (4.0-11.0) Red Blood Count 2.90x10^6/uL (3.50-5.40) Hemoglobin 8.8g/dL (12.0-15.5) Hematocrit 26.6% (36.0-47.0) Mean Corpuscular Volume 92fL (79-100) Mean Corpuscular Hemoglobin 30pg (25-35) Mean Corpuscular Hemoglobin Concent 33g/dL (31-37) Red Cell Distribution Width 15.5% (11.5-14.5) Platelet Count 78x10^3/uL (140-400) Neutrophils (%) (Auto) 88% (31-73) Lymphocytes (%) (Auto) 5% (24-48) Monocytes (%) (Auto) 5% (0-9) Eosinophils (%) (Auto) 2% (0-3) Basophils (%) (Auto) 0% (0-3) Neutrophils # (Auto) 11.0x10^3uL (1.8-7.7) Lymphocytes # (Auto) 0.6x10^3/uL (1.0-4.8) Monocytes # (Auto) 0.6x10^3/uL (0.0-1.1) Eosinophils # (Auto) 0.3x10^3/uL (0.0-0.7) Basophils # (Auto) 0.0x10^3/uL (0.0-0.2) Sodium Level 137mmol/L (136-145) Potassium Level 4.8mmol/L (3.5-5.1) Chloride Level 98mmol/L (98-107) Carbon Dioxide Level 24mmol/L (21-32) Anion Gap 15 (6-14) Blood Urea Nitrogen 51mg/dL (7-20) Creatinine 3.6mg/dL (0.6-1.0) Estimated GFR (Cockcroft-Gault) 13.2 BUN/Creatinine Ratio 14 (6-20) Glucose Level 128mg/dL (70-99) Lactic Acid Level 3.5mmol/L (0.4-2.0) Calcium Level 7.9mg/dL (8.5-10.1) Total Bilirubin 2.9mg/dL (0.2-1.0) Aspartate Amino Transf (AST/SGOT) 4108U/L (15-37) Alanine Aminotransferase (ALT/SGPT) 3620U/L (14-59) Alkaline Phosphatase 57U/L (46-116) Total Protein 6.0g/dL (6.4-8.2) Albumin 2.9g/dL (3.4-5.0) Albumin/Globulin Ratio 0.9 (1.0-1.7) Medications Current Medications Acetaminophen (Tylenol) 650 mg PRN Q6HRS PRN PO Headaches, Temp > 101.5'; Start 04/12/16 at 02:30 Ondansetron HCl (Zofran) 4 mg PRN Q6HRS PRN IV NAUSEA/VOMITING; Start 04/12/16 at 02:30 Famotidine (Pepcid) 20 mg BID IVP Last administered on 04/12/16 20:53; Start 04/12/16 at 09:00 Info 1 ea DAILY MC ; Start 04/12/16 at 09:00 Fentanyl Citrate (Fentanyl 2ml Vial) 25 mcg PRN Q1HR PRN IV COMM Last administered on 04/13/16 00:27; Start 04/12/16 at 02:30 Fentanyl Citrate 50 mcg 50 mcg PRN Q1HR PRN IV COMM Last administered on 03:18; Start 04/12/16 at 02:30 Norepinephrine Bitartrate/Sodium Chloride (Levophed Vial/ Iv Sodium Chloride 0.9 % 250ml) 258 ml @ 0 mls/hr CONT PRN IV SEE I/O RECORD Last administered on 04/13 02:55; Start 04/12/16 at 02:30 Haloperidol Lactate (Haldol) 5 mg PRN Q6HRS PRN IVP AGITATION Last administered on 04/12/16 05:28; Start 04/12/16 at 02:30 Acetaminophen (Tylenol) 650 mg PRN Q6HRS PRN DC MILD PAIN / TEMP Last administered on 04/12/16 03:36; Start 04/12/16 at 03:30 Nystatin (Nystop) 1 gabrielle BID TP Last administered on 04/12/16 20:55; Start 01/16 at 03:30 Insulin Aspart (Novolog) 0-9 UNITS TIDWMEALS SQ Last administered on 04/12/16 09:23; Start 04/12/16 at 08:00 Dextrose 12.5 gm PRN Q15MIN PRN IV SEE COMMENTS; Start 04/12/16 at 04:00 Info 1 each 1 each PRN DAILY PRN MC SEE COMMENTS; Start 04/12/16 at 06:30 Piperacillin Sod/ Tazobactam Sod 3.375 gm/Sodium Chloride 50 ml @ 100 mls/hr Q8HRS IV ; Start 04/12/16 at 14:00; Stop 04/12/16 at 14:00; Status DC Levofloxacin/ Dextrose 100 ml @ 100 mls/hr 1X ONCE IV Last administered on 08:48; Start 04/12/16 at 08:00; Stop 04/12/16 at 08:59; Status DC Ceftriaxone Sodium 1 gm/ Sodium Chloride 50 ml @ 100 mls/hr Q24H IV Last administered on 04/12/16 08:48; Start 04/12/16 at 09:00; Stop 04/12/16 at 10:25 ; Status DC Piperacillin Sod/ Tazobactam Sod/ Sodium Chloride (Zosyn/Iv Sodium Chloride 0.9 % 50ml) 50 ml @ 100 mls/hr Q8HRS IV Last administered on 04/13/16 04:59; Start 04/12/16 at 14:00 Lidocaine/Sodium Bicarbonate (Buffered Lidocaine 1%) 3 ml 1X ONCE IJ Last administered on 04/12/16 12:45; Start 04/12/16 at 12:45; Stop 04/12/16 at 12:47 ; Status DC Heparin Sodium/ Sodium Chloride 60 unit 1X ONCE IV Last administered on 12:45; Start 04/12/16 at 12:45; Stop 04/12/16 at 12:47; Status DC Heparin Sodium (Porcine) 2,500 unit 1X ONCE INT CAT Last administered on 12:45; Start 04/12/16 at 12:45; Stop 04/12/16 at 12:47; Status DC Heparin Sodium (Porcine) 69128 unit 10,000 unit STK-MED ONCE .ROUTE ; Start 01/16 at 12:51; Stop 04/12/16 at 12:52; Status DC Sodium Chloride 1,000 ml @ 1,000 mls/hr Q1H PRN IV hypotension; Start 04/12/16 at 16:27; Stop 04/12/16 at 22:26; Status DC Albumin Human (Albuminar) 200 ml @ 200 mls/hr 1X PRN PRN IV Hypotension Last administered on 04/12/16 17:21; Start 04/12/16 at 16:30; Stop 04/12/16 at 22:29 ; Status DC Midodrine (Proamatine) 5 mg 1X ONCE PO ; Start 04/12/16 at 16:30; Stop at 16:34; Status DC Diphenhydramine HCl (Benadryl) 25 mg 1X PRN PRN IV ITCHING; Start 04/12/16 at 16:30; Stop 04/13/16 at 16:29 Diphenhydramine HCl (Benadryl) 25 mg 1X PRN PRN IV ITCHING; Start 04/12/16 at 16:30; Stop 04/13/16 at 16:29 Info 1 each 1 each PRN DAILY PRN MC SEE COMMENTS; Start 04/12/16 at 16:30; Status UNV Sodium Chloride 1,000 ml @ 15 mls/hr Q24H IV Last administered on 04/12/16 18 :14; Start 04/12/16 at 14:00 Sodium Chloride (Iv Sodium Chloride 0.9% 250ml) 250 ml @ 250 mls/hr 1X ONCE IV Last administered on 04/12/16 22:34; Start 04/12/16 at 22:30; Stop at 23:29; Status DC Active Scripts Active Reported Chlorthalidone 25 Mg Tablet 1 Tab PO DAILY Magnesium (Magnesium Oxide) 250 Mg Tablet 250 Mg PO DAILY Glimepiride 4 Mg Tablet 1 Tab PO BID Proair Hfa Inhaler (Albuterol Sulfate) 8.5 Gm Hfa.aer.ad 1 Puff INH PRN Q6HRS PRN Chlorthalidone 25 Mg Tablet 1 Tab PO DAILY Lisinopril 5 Mg Tablet 1 Tab PO DAILY Crestor (Rosuvastatin Calcium) 20 Mg Tablet 1 Tab PO HS Gabapentin 300 Mg Capsule 300 Mg PO HS Multi Vitamin Daily (Multivitamin) 1 Each Tablet 1 Each PO DAILY Bumetanide 2 Mg Tablet 2 Mg PO DAILY Aspirin Ec (Aspirin) 81 Mg Tablet.dr 81 Mg PO DAILY Potassium Chloride 20 Meq Tab.er.prt 20 Meq PO DAILY Vitals/I & O Vital Sign - Last 24 Hours 04/12/16 04/12/16 04/12/16 04/12/16 10:00 11:00 12:00 12:00 Temp 98.9 98.9 Pulse 116 112 116 Resp 30 36 36 B/P 76/52 115/61 112/59 Pulse Ox 94 94 95 O2 Delivery Room Air Room Air Room Air Room Air 04/12/16 04/12/16 04/12/16 04/12/16 13:00 14:00 15:00 15:52 Temp 99.1 99.1 Pulse 116 116 116 116 Resp 35 26 22 20 B/P 111/62 118/82 135/70 120/60 Pulse Ox 92 100 96 O2 Delivery Room Air Nasal Cannula Nasal Cannula Nasal Cannula O2 Flow Rate 2.0 2.0 2.0 04/12/16 04/12/16 04/12/16 04/12/16 16:00 17:00 18:00 19:00 Pulse 124 128 132 Resp 26 24 28 B/P 131/50 126/71 111/49 Pulse Ox 94 96 98 O2 Delivery Room Air Nasal Cannula Nasal Cannula Nasal Cannula O2 Flow Rate 2.0 2.0 3.0 04/12/16 04/12/16 04/12/16 04/12/16 20:00 20:00 20:55 21:00 Temp 100.0 100.0 Pulse 138 141 Resp 30 30 30 B/P 111/47 130/46 Pulse Ox 97 98 97 O2 Delivery Nasal Cannula Nasal Cannula Nasal Cannula Nasal Cannula O2 Flow Rate 3.0 3.0 3.0 3.0 04/12/16 04/12/16 04/13/16 04/13/16 22:00 23:00 00:00 00:00 Temp 98.9 98.9 Pulse 141 136 134 Resp 31 37 22 B/P 102/53 97/48 96/48 Pulse Ox 98 98 96 O2 Delivery Nasal Cannula Nasal Cannula Nasal Cannula Nasal Cannula O2 Flow Rate 3.0 3.0 3.0 3.0 04/13/16 04/13/16 04/13/16 04/13/16 00:27 00:57 01:00 02:00 Pulse 132 132 Resp 28 21 21 20 B/P 96/51 102/49 Pulse Ox 94 94 96 94 O2 Delivery Nasal Cannula Nasal Cannula Nasal Cannula Nasal Cannula O2 Flow Rate 2.0 2.0 3.0 3.0 04/13/16 04/13/16 04/13/16 04/13/16 03:00 03:18 03:44 04:00 Pulse 132 Resp 20 25 21 B/P 108/51 Pulse Ox 98 98 99 O2 Delivery Nasal Cannula Nasal Cannula Nasal Cannula Nasal Cannula O2 Flow Rate 2.0 2.0 2.0 2.0 04/13/16 04/13/16 04/13/16 04/13/16 04:00 05:00 06:00 07:00 Temp 99.1 99.1 Pulse 131 130 135 128 Resp 22 30 25 24 B/P 116/55 117/50 91/44 96/78 Pulse Ox 95 99 98 97 O2 Delivery Nasal Cannula Nasal Cannula Nasal Cannula Nasal Cannula O2 Flow Rate 2.0 2.0 2.0 2.0 Intake and Output 04/12/16 04/12/16 04/13/16 15:00 23:00 07:00 Intake Total 150 ml 620 ml 415 ml Output Total 45 ml 153 ml 24 ml Balance 105 ml 467 ml 391 ml TEDDY CARLSON MD Apr 13, 2016 09:06
--- NOTE | 2016-04-13 09:25 | PDOC ---
G I PROGRESS NOTE Reason for Follow-up Confusion/increased LFTS Subjective patient moaning Physical Exam Lungs decreased BS CV S1 S2 ABD distended, hypoactive bs Review of Relevant I have reviewed the following items nelda (where applicable) has been applied. Labs Laboratory Tests Test 04/12/16 02:30 04/12/16 09:19 04/12/16 12:25 04/12/16 14:58 White Blood Count 13.0x10^3/uL (4.0-11.0) Red Blood Count 3.22x10^6/uL (3.50-5.40) Hemoglobin 9.8g/dL (12.0-15.5) Hematocrit 29.4% (36.0-47.0) Mean Corpuscular Volume 91fL (79-100) Mean Corpuscular Hemoglobin 30pg (25-35) Mean Corpuscular Hemoglobin Concent 33g/dL (31-37) Red Cell Distribution Width 15.6% (11.5-14.5) Platelet Count 76x10^3/uL (140-400) Neutrophils (%) (Auto) 95% (31-73) Lymphocytes (%) (Auto) 2% (24-48) Monocytes (%) (Auto) 3% (0-9) Eosinophils (%) (Auto) 0% (0-3) Basophils (%) (Auto) 0% (0-3) Neutrophils # (Auto) 12.3x10^3uL (1.8-7.7) Lymphocytes # (Auto) 0.3x10^3/uL (1.0-4.8) Monocytes # (Auto) 0.4x10^3/uL (0.0-1.1) Eosinophils # (Auto) 0.0x10^3/uL (0.0-0.7) Basophils # (Auto) 0.0x10^3/uL (0.0-0.2) Segmented Neutrophils % 54% (35-66) Band Neutrophils % 40% (0-9) Lymphocytes % 1% (24-48) Atypical Lymphocytes % (Manual) 1% (0-0) Monocytes % 2% (0-10) Metamyelocytes % 2% (0-0) Toxic Granulation Slight Platelet Estimate Decreased (ADEQUATE) Polychromasia Slight Sodium Level 128mmol/L (136-145) Potassium Level 5.7mmol/L (3.5-5.1) Chloride Level 95mmol/L (98-107) Carbon Dioxide Level 19mmol/L (21-32) Anion Gap 14 (6-14) Blood Urea Nitrogen 77mg/dL (7-20) Creatinine 3.9mg/dL (0.6-1.0) Estimated GFR (Cockcroft-Gault) 12.0 BUN/Creatinine Ratio 20 (6-20) Glucose Level 318mg/dL (70-99) Lactic Acid Level 5.3mmol/L (0.4-2.0) Calcium Level 7.9mg/dL (8.5-10.1) Magnesium Level 1.5mg/dL (1.8-2.4) Total Bilirubin 0.9mg/dL (0.2-1.0) Aspartate Amino Transf (AST/SGOT) 907U/L (15-37) Alanine Aminotransferase (ALT/SGPT) 751U/L (14-59) Alkaline Phosphatase 50U/L (46-116) Troponin I Quantitative 2.934ng/mL (0.000-0.055) 3.237ng/mL (0.000-0.055) Total Protein 6.1g/dL (6.4-8.2) Albumin 2.5g/dL (3.4-5.0) Albumin/Globulin Ratio 0.7 (1.0-1.7) Procalcitonin 73.42ng/mL (0.00-0.10) Glucose (Fingerstick) 204mg/dL (70-99) 185mg/dL (70-99) Test 04/12/16 15:00 04/12/16 17:22 04/13/16 06:34 Ammonia 31mcmol/L (11-34) Glucose (Fingerstick) 135mg/dL (70-99) White Blood Count 12.6x10^3/uL (4.0-11.0) Red Blood Count 2.90x10^6/uL (3.50-5.40) Hemoglobin 8.8g/dL (12.0-15.5) Hematocrit 26.6% (36.0-47.0) Mean Corpuscular Volume 92fL (79-100) Mean Corpuscular Hemoglobin 30pg (25-35) Mean Corpuscular Hemoglobin Concent 33g/dL (31-37) Red Cell Distribution Width 15.5% (11.5-14.5) Platelet Count 78x10^3/uL (140-400) Neutrophils (%) (Auto) 88% (31-73) Lymphocytes (%) (Auto) 5% (24-48) Monocytes (%) (Auto) 5% (0-9) Eosinophils (%) (Auto) 2% (0-3) Basophils (%) (Auto) 0% (0-3) Neutrophils # (Auto) 11.0x10^3uL (1.8-7.7) Lymphocytes # (Auto) 0.6x10^3/uL (1.0-4.8) Monocytes # (Auto) 0.6x10^3/uL (0.0-1.1) Eosinophils # (Auto) 0.3x10^3/uL (0.0-0.7) Basophils # (Auto) 0.0x10^3/uL (0.0-0.2) Sodium Level 137mmol/L (136-145) Potassium Level 4.8mmol/L (3.5-5.1) Chloride Level 98mmol/L (98-107) Carbon Dioxide Level 24mmol/L (21-32) Anion Gap 15 (6-14) Blood Urea Nitrogen 51mg/dL (7-20) Creatinine 3.6mg/dL (0.6-1.0) Estimated GFR (Cockcroft-Gault) 13.2 BUN/Creatinine Ratio 14 (6-20) Glucose Level 128mg/dL (70-99) Lactic Acid Level 3.5mmol/L (0.4-2.0) Calcium Level 7.9mg/dL (8.5-10.1) Total Bilirubin 2.9mg/dL (0.2-1.0) Aspartate Amino Transf (AST/SGOT) 4108U/L (15-37) Alanine Aminotransferase (ALT/SGPT) 3620U/L (14-59) Alkaline Phosphatase 57U/L (46-116) Total Protein 6.0g/dL (6.4-8.2) Albumin 2.9g/dL (3.4-5.0) Albumin/Globulin Ratio 0.9 (1.0-1.7) Laboratory Tests Test 04/12/16 12:25 04/12/16 14:58 04/12/16 15:00 04/12/16 17:22 Troponin I Quantitative 3.237ng/mL (0.000-0.055) Glucose (Fingerstick) 185mg/dL (70-99) 135mg/dL (70-99) Ammonia 31mcmol/L (11-34) Test 04/13/16 06:34 White Blood Count 12.6x10^3/uL (4.0-11.0) Red Blood Count 2.90x10^6/uL (3.50-5.40) Hemoglobin 8.8g/dL (12.0-15.5) Hematocrit 26.6% (36.0-47.0) Mean Corpuscular Volume 92fL (79-100) Mean Corpuscular Hemoglobin 30pg (25-35) Mean Corpuscular Hemoglobin Concent 33g/dL (31-37) Red Cell Distribution Width 15.5% (11.5-14.5) Platelet Count 78x10^3/uL (140-400) Neutrophils (%) (Auto) 88% (31-73) Lymphocytes (%) (Auto) 5% (24-48) Monocytes (%) (Auto) 5% (0-9) Eosinophils (%) (Auto) 2% (0-3) Basophils (%) (Auto) 0% (0-3) Neutrophils # (Auto) 11.0x10^3uL (1.8-7.7) Lymphocytes # (Auto) 0.6x10^3/uL (1.0-4.8) Monocytes # (Auto) 0.6x10^3/uL (0.0-1.1) Eosinophils # (Auto) 0.3x10^3/uL (0.0-0.7) Basophils # (Auto) 0.0x10^3/uL (0.0-0.2) Sodium Level 137mmol/L (136-145) Potassium Level 4.8mmol/L (3.5-5.1) Chloride Level 98mmol/L (98-107) Carbon Dioxide Level 24mmol/L (21-32) Anion Gap 15 (6-14) Blood Urea Nitrogen 51mg/dL (7-20) Creatinine 3.6mg/dL (0.6-1.0) Estimated GFR (Cockcroft-Gault) 13.2 BUN/Creatinine Ratio 14 (6-20) Glucose Level 128mg/dL (70-99) Lactic Acid Level 3.5mmol/L (0.4-2.0) Calcium Level 7.9mg/dL (8.5-10.1) Total Bilirubin 2.9mg/dL (0.2-1.0) Aspartate Amino Transf (AST/SGOT) 4108U/L (15-37) Alanine Aminotransferase (ALT/SGPT) 3620U/L (14-59) Alkaline Phosphatase 57U/L (46-116) Total Protein 6.0g/dL (6.4-8.2) Albumin 2.9g/dL (3.4-5.0) Albumin/Globulin Ratio 0.9 (1.0-1.7) Medications Current Medications Acetaminophen (Tylenol) 650 mg PRN Q6HRS PRN PO Headaches, Temp > 101.5'; Start 04/12/16 at 02:30 Ondansetron HCl (Zofran) 4 mg PRN Q6HRS PRN IV NAUSEA/VOMITING; Start 04/12/16 at 02:30 Famotidine (Pepcid) 20 mg BID IVP Last administered on 04/12/16 20:53; Start 04/12/16 at 09:00 Info 1 ea DAILY MC ; Start 04/12/16 at 09:00 Fentanyl Citrate (Fentanyl 2ml Vial) 25 mcg PRN Q1HR PRN IV COMM Last administered on 04/13/16 00:27; Start 04/12/16 at 02:30 Fentanyl Citrate 50 mcg 50 mcg PRN Q1HR PRN IV COMM Last administered on 03:18; Start 04/12/16 at 02:30 Norepinephrine Bitartrate/Sodium Chloride (Levophed Vial/ Iv Sodium Chloride 0.9 % 250ml) 258 ml @ 0 mls/hr CONT PRN IV SEE I/O RECORD Last administered on 04/13 02:55; Start 04/12/16 at 02:30 Haloperidol Lactate (Haldol) 5 mg PRN Q6HRS PRN IVP AGITATION Last administered on 04/12/16 05:28; Start 04/12/16 at 02:30 Acetaminophen (Tylenol) 650 mg PRN Q6HRS PRN PA MILD PAIN / TEMP Last administered on 04/12/16 03:36; Start 04/12/16 at 03:30 Nystatin (Nystop) 1 gabrielle BID TP Last administered on 04/12/16 20:55; Start 01/16 at 03:30 Insulin Aspart (Novolog) 0-9 UNITS TIDWMEALS SQ Last administered on 04/12/16 09:23; Start 04/12/16 at 08:00 Dextrose 12.5 gm PRN Q15MIN PRN IV SEE COMMENTS; Start 04/12/16 at 04:00 Info 1 each 1 each PRN DAILY PRN MC SEE COMMENTS; Start 04/12/16 at 06:30 Piperacillin Sod/ Tazobactam Sod 3.375 gm/Sodium Chloride 50 ml @ 100 mls/hr Q8HRS IV ; Start 04/12/16 at 14:00; Stop 04/12/16 at 14:00; Status DC Levofloxacin/ Dextrose 100 ml @ 100 mls/hr 1X ONCE IV Last administered on 08:48; Start 04/12/16 at 08:00; Stop 04/12/16 at 08:59; Status DC Ceftriaxone Sodium 1 gm/ Sodium Chloride 50 ml @ 100 mls/hr Q24H IV Last administered on 04/12/16 08:48; Start 04/12/16 at 09:00; Stop 04/12/16 at 10:25 ; Status DC Piperacillin Sod/ Tazobactam Sod/ Sodium Chloride (Zosyn/Iv Sodium Chloride 0.9 % 50ml) 50 ml @ 100 mls/hr Q8HRS IV Last administered on 04/13/16 04:59; Start 04/12/16 at 14:00 Lidocaine/Sodium Bicarbonate (Buffered Lidocaine 1%) 3 ml 1X ONCE IJ Last administered on 04/12/16 12:45; Start 04/12/16 at 12:45; Stop 04/12/16 at 12:47 ; Status DC Heparin Sodium/ Sodium Chloride 60 unit 1X ONCE IV Last administered on 12:45; Start 04/12/16 at 12:45; Stop 04/12/16 at 12:47; Status DC Heparin Sodium (Porcine) 2,500 unit 1X ONCE INT CAT Last administered on 12:45; Start 04/12/16 at 12:45; Stop 04/12/16 at 12:47; Status DC Heparin Sodium (Porcine) 12404 unit 10,000 unit STK-MED ONCE .ROUTE ; Start 01/16 at 12:51; Stop 04/12/16 at 12:52; Status DC Sodium Chloride 1,000 ml @ 1,000 mls/hr Q1H PRN IV hypotension; Start 04/12/16 at 16:27; Stop 04/12/16 at 22:26; Status DC Albumin Human (Albuminar) 200 ml @ 200 mls/hr 1X PRN PRN IV Hypotension Last administered on 04/12/16 17:21; Start 04/12/16 at 16:30; Stop 04/12/16 at 22:29 ; Status DC Midodrine (Proamatine) 5 mg 1X ONCE PO ; Start 04/12/16 at 16:30; Stop at 16:34; Status DC Diphenhydramine HCl (Benadryl) 25 mg 1X PRN PRN IV ITCHING; Start 04/12/16 at 16:30; Stop 04/13/16 at 16:29 Diphenhydramine HCl (Benadryl) 25 mg 1X PRN PRN IV ITCHING; Start 04/12/16 at 16:30; Stop 04/13/16 at 16:29 Info 1 each 1 each PRN DAILY PRN MC SEE COMMENTS; Start 04/12/16 at 16:30; Status UNV Sodium Chloride 1,000 ml @ 15 mls/hr Q24H IV Last administered on 04/12/16 18 :14; Start 04/12/16 at 14:00 Sodium Chloride (Iv Sodium Chloride 0.9% 250ml) 250 ml @ 250 mls/hr 1X ONCE IV Last administered on 04/12/16 22:34; Start 04/12/16 at 22:30; Stop at 23:29; Status DC Active Scripts Active Reported Chlorthalidone 25 Mg Tablet 1 Tab PO DAILY Magnesium (Magnesium Oxide) 250 Mg Tablet 250 Mg PO DAILY Glimepiride 4 Mg Tablet 1 Tab PO BID Proair Hfa Inhaler (Albuterol Sulfate) 8.5 Gm Hfa.aer.ad 1 Puff INH PRN Q6HRS PRN Chlorthalidone 25 Mg Tablet 1 Tab PO DAILY Lisinopril 5 Mg Tablet 1 Tab PO DAILY Crestor (Rosuvastatin Calcium) 20 Mg Tablet 1 Tab PO HS Gabapentin 300 Mg Capsule 300 Mg PO HS Multi Vitamin Daily (Multivitamin) 1 Each Tablet 1 Each PO DAILY Bumetanide 2 Mg Tablet 2 Mg PO DAILY Aspirin Ec (Aspirin) 81 Mg Tablet.dr 81 Mg PO DAILY Potassium Chloride 20 Meq Tab.er.prt 20 Meq PO DAILY Vitals/I & O Vital Sign - Last 24 Hours 04/12/16 04/12/16 04/12/16 04/12/16 10:00 11:00 12:00 12:00 Temp 98.9 98.9 Pulse 116 112 116 Resp 30 36 36 B/P 76/52 115/61 112/59 Pulse Ox 94 94 95 O2 Delivery Room Air Room Air Room Air Room Air 04/12/16 04/12/16 04/12/16 04/12/16 13:00 14:00 15:00 15:52 Temp 99.1 99.1 Pulse 116 116 116 116 Resp 35 26 22 20 B/P 111/62 118/82 135/70 120/60 Pulse Ox 92 100 96 O2 Delivery Room Air Nasal Cannula Nasal Cannula Nasal Cannula O2 Flow Rate 2.0 2.0 2.0 04/12/16 04/12/16 04/12/16 04/12/16 16:00 17:00 18:00 19:00 Pulse 124 128 132 Resp 26 24 28 B/P 131/50 126/71 111/49 Pulse Ox 94 96 98 O2 Delivery Room Air Nasal Cannula Nasal Cannula Nasal Cannula O2 Flow Rate 2.0 2.0 3.0 04/12/16 04/12/16 04/12/16 04/12/16 20:00 20:00 20:55 21:00 Temp 100.0 100.0 Pulse 138 141 Resp 30 30 30 B/P 111/47 130/46 Pulse Ox 97 98 97 O2 Delivery Nasal Cannula Nasal Cannula Nasal Cannula Nasal Cannula O2 Flow Rate 3.0 3.0 3.0 3.0 04/12/16 04/12/16 04/13/16 04/13/16 22:00 23:00 00:00 00:00 Temp 98.9 98.9 Pulse 141 136 134 Resp 31 37 22 B/P 102/53 97/48 96/48 Pulse Ox 98 98 96 O2 Delivery Nasal Cannula Nasal Cannula Nasal Cannula Nasal Cannula O2 Flow Rate 3.0 3.0 3.0 3.0 04/13/16 04/13/16 04/13/16 04/13/16 00:27 00:57 01:00 02:00 Pulse 132 132 Resp 28 21 21 20 B/P 96/51 102/49 Pulse Ox 94 94 96 94 O2 Delivery Nasal Cannula Nasal Cannula Nasal Cannula Nasal Cannula O2 Flow Rate 2.0 2.0 3.0 3.0 04/13/16 04/13/16 04/13/16 04/13/16 03:00 03:18 03:44 04:00 Pulse 132 Resp 20 25 21 B/P 108/51 Pulse Ox 98 98 99 O2 Delivery Nasal Cannula Nasal Cannula Nasal Cannula Nasal Cannula O2 Flow Rate 2.0 2.0 2.0 2.0 04/13/16 04/13/16 04/13/16 04/13/16 04:00 05:00 06:00 07:00 Temp 99.1 99.1 Pulse 131 130 135 128 Resp 22 30 25 24 B/P 116/55 117/50 91/44 96/78 Pulse Ox 95 99 98 97 O2 Delivery Nasal Cannula Nasal Cannula Nasal Cannula Nasal Cannula O2 Flow Rate 2.0 2.0 2.0 2.0 Intake and Output 04/12/16 04/12/16 04/13/16 15:00 23:00 07:00 Intake Total 150 ml 620 ml 415 ml Output Total 45 ml 153 ml 24 ml Balance 105 ml 467 ml 391 ml Problem List Hepatitis- onsisent with ischemic variety, await hep B and acetaminophen titers , prognosis poor, cpm ROMI CABRERA MD Apr 13, 2016 09:25
[2016-04-13] MEDS ORDERED: IV NORMAL SALINE 1000ML BAG 1,000 ML IV ONE (09:30)
[2016-04-13] MEDS: FAMOTIDINE 20 MG/2 ML VIAL IVP SCH ×2 (10:07→21:30)
[2016-04-13] MEDS: NYSTATIN TOPICAL POWDER 15GM BOTTLE. TP SCH ×2 (10:08→21:31)
--- NOTE | 2016-04-13 11:15 | RAD ---
Single view chest History:SEPSIS An AP view of the chest is submitted. Comparison: 04/12/2016. Findings: There is again single lead left electronic cardiac device. There are again 2 right internal jugular venous catheters. Pericardial cardiac silhouette is again enlarged. There is no pneumothorax or significant pleural fluid. No new lobar consolidation is identified. Impression: There are again right internal jugular venous catheters. No new infiltrate is identified. Pericardial cardiac silhouette is again enlarged.
--- NOTE | 2016-04-13 11:44 | RAD ---
Head CT without contrast History:Altered mental status Technique: Noncontrast CT imaging was acquired of the head. RS Compliance Statement: One or more of the following individualized dose reduction techniques were utilized for this examination: 1. Automated exposure control 2. Adjustment of the mA and/or kV according to patient size 3. Use of iterative reconstruction technique Comparison: None Findings: There is mild prominence of bifrontal subarachnoid spaces.There is no significant intra-axial mass-effect, midline shift, or abnormal extra-axial fluid collection. There is no evidence of acute parenchymal or extraaxial hemorrhage. There is mild mucosal thickening visualized maxillary sinuses greater on the right. There is atherosclerotic carotid calcification carotid siphons bilaterally. The mastoid air cells are aerated. No significant osseous abnormality is identified. Impression: There is no evidence of an acute intracranial abnormality. If there is suspicion for evolving or acute ischemia, follow-up CT or MRI may be beneficial. There is mild supratentorial involutional change.
--- NOTE | 2016-04-13 12:09 | RAD ---
RENAL COMPLETE BILATERAL History:RENAL FAILURE Comparison: None Findings:Multiple sonographic images of the region of the bladder and right kidney are submitted. There is attenuation by soft tissues. There has been left nephrectomy. Bladder is decompressed by Grant catheter. Right kidney measured 13.3 x 6.6 x 6.5 cm, no hydronephrosis. Right renal cortical echogenicity is considered within normal limits. Visualized abdominal aorta is estimated at 2.3 cm in caliber. There is segmental visualization of the inferior vena cava. Impression: 1.There has been left nephrectomy, no significant abnormality of the visualized right kidney.
[2016-04-13] MEDS: AA 3%/ELECTROLYTE-TPN SOLN/GLY 1,000 ML IV SCH ×2 (13:27→21:31)
--- NOTE | 2016-04-13 13:59 | PDOC ---
PROGRESS NOTES Subjective Subjective SEEN IN FOLLOW UP OF ARF Objective Objective Vital Signs Date Time Temp Pulse Resp B/P Pulse Ox O2 Delivery O2 Flow Rate FiO2 04/13/16 07:00 128 24 96/78 97 Nasal Cannula 2.0 04/13/16 04:00 99.1 99.1 Intake and Output 04/13/16 07:00 Intake Total 1185 ml Output Total 222 ml Balance 963 ml Intake IV Total 1185 ml Output Urine Total 222 ml Physical Exam Abdomen: Normal bowel sounds, Soft, No tenderness, No hepatosplenomegaly, No masses Heart: Regular rate, Normal S1, Normal S2, No murmurs, Gallops Extremities: No clubbing, No cyanosis, No edema, Normal pulses, No tenderness/ swelling Lungs: Clear to auscultation, Normal air movement Diagnosis RENAL FAILURE: Acute (Acute tubular necrosis) Plan Plan of Care LABS BETTER. STILL NO CLEAR IFECTION SOURCE. CONT BROAD SPECTRUM ANTIBIOTICS AND FOLLOW LAB. DISCUSSED WITH DAUGHTER Comment Review of Relevant I have reviewed the following items nelda (where applicable) has been applied. Labs Laboratory Tests Test 04/12/16 02:30 04/12/16 09:19 04/12/16 12:25 04/12/16 14:58 White Blood Count 13.0x10^3/uL (4.0-11.0) Red Blood Count 3.22x10^6/uL (3.50-5.40) Hemoglobin 9.8g/dL (12.0-15.5) Hematocrit 29.4% (36.0-47.0) Mean Corpuscular Volume 91fL (79-100) Mean Corpuscular Hemoglobin 30pg (25-35) Mean Corpuscular Hemoglobin Concent 33g/dL (31-37) Red Cell Distribution Width 15.6% (11.5-14.5) Platelet Count 76x10^3/uL (140-400) Neutrophils (%) (Auto) 95% (31-73) Lymphocytes (%) (Auto) 2% (24-48) Monocytes (%) (Auto) 3% (0-9) Eosinophils (%) (Auto) 0% (0-3) Basophils (%) (Auto) 0% (0-3) Neutrophils # (Auto) 12.3x10^3uL (1.8-7.7) Lymphocytes # (Auto) 0.3x10^3/uL (1.0-4.8) Monocytes # (Auto) 0.4x10^3/uL (0.0-1.1) Eosinophils # (Auto) 0.0x10^3/uL (0.0-0.7) Basophils # (Auto) 0.0x10^3/uL (0.0-0.2) Segmented Neutrophils % 54% (35-66) Band Neutrophils % 40% (0-9) Lymphocytes % 1% (24-48) Atypical Lymphocytes % (Manual) 1% (0-0) Monocytes % 2% (0-10) Metamyelocytes % 2% (0-0) Toxic Granulation Slight Platelet Estimate Decreased (ADEQUATE) Polychromasia Slight Sodium Level 128mmol/L (136-145) Potassium Level 5.7mmol/L (3.5-5.1) Chloride Level 95mmol/L (98-107) Carbon Dioxide Level 19mmol/L (21-32) Anion Gap 14 (6-14) Blood Urea Nitrogen 77mg/dL (7-20) Creatinine 3.9mg/dL (0.6-1.0) Estimated GFR (Cockcroft-Gault) 12.0 BUN/Creatinine Ratio 20 (6-20) Glucose Level 318mg/dL (70-99) Lactic Acid Level 5.3mmol/L (0.4-2.0) Calcium Level 7.9mg/dL (8.5-10.1) Magnesium Level 1.5mg/dL (1.8-2.4) Total Bilirubin 0.9mg/dL (0.2-1.0) Aspartate Amino Transf (AST/SGOT) 907U/L (15-37) Alanine Aminotransferase (ALT/SGPT) 751U/L (14-59) Alkaline Phosphatase 50U/L (46-116) Troponin I Quantitative 2.934ng/mL (0.000-0.055) 3.237ng/mL (0.000-0.055) Total Protein 6.1g/dL (6.4-8.2) Albumin 2.5g/dL (3.4-5.0) Albumin/Globulin Ratio 0.7 (1.0-1.7) Procalcitonin 73.42ng/mL (0.00-0.10) Glucose (Fingerstick) 204mg/dL (70-99) 185mg/dL (70-99) Test 04/12/16 15:00 04/12/16 17:22 04/13/16 06:34 04/13/16 12:00 Ammonia 31mcmol/L (11-34) Glucose (Fingerstick) 135mg/dL (70-99) White Blood Count 12.6x10^3/uL (4.0-11.0) Red Blood Count 2.90x10^6/uL (3.50-5.40) Hemoglobin 8.8g/dL (12.0-15.5) Hematocrit 26.6% (36.0-47.0) Mean Corpuscular Volume 92fL (79-100) Mean Corpuscular Hemoglobin 30pg (25-35) Mean Corpuscular Hemoglobin Concent 33g/dL (31-37) Red Cell Distribution Width 15.5% (11.5-14.5) Platelet Count 78x10^3/uL (140-400) Neutrophils (%) (Auto) 88% (31-73) Lymphocytes (%) (Auto) 5% (24-48) Monocytes (%) (Auto) 5% (0-9) Eosinophils (%) (Auto) 2% (0-3) Basophils (%) (Auto) 0% (0-3) Neutrophils # (Auto) 11.0x10^3uL (1.8-7.7) Lymphocytes # (Auto) 0.6x10^3/uL (1.0-4.8) Monocytes # (Auto) 0.6x10^3/uL (0.0-1.1) Eosinophils # (Auto) 0.3x10^3/uL (0.0-0.7) Basophils # (Auto) 0.0x10^3/uL (0.0-0.2) Sodium Level 137mmol/L (136-145) Potassium Level 4.8mmol/L (3.5-5.1) Chloride Level 98mmol/L (98-107) Carbon Dioxide Level 24mmol/L (21-32) Anion Gap 15 (6-14) Blood Urea Nitrogen 51mg/dL (7-20) Creatinine 3.6mg/dL (0.6-1.0) Estimated GFR (Cockcroft-Gault) 13.2 BUN/Creatinine Ratio 14 (6-20) Glucose Level 128mg/dL (70-99) Lactic Acid Level 3.5mmol/L (0.4-2.0) Calcium Level 7.9mg/dL (8.5-10.1) Magnesium Level 1.6mg/dL (1.8-2.4) Total Bilirubin 2.9mg/dL (0.2-1.0) Aspartate Amino Transf (AST/SGOT) 4108U/L (15-37) Alanine Aminotransferase (ALT/SGPT) 3620U/L (14-59) Alkaline Phosphatase 57U/L (46-116) Lactate Dehydrogenase 2970U/L (81-234) Total Protein 6.0g/dL (6.4-8.2) Albumin 2.9g/dL (3.4-5.0) Albumin/Globulin Ratio 0.9 (1.0-1.7) Acetaminophen Level < 2.0mcg/ml (10-30) Acetaminophen Last Dose Date Unknown Acetaminophen Last Dose Time Unknown Fibrinogen 526mg/dL (200-440) Test 04/13/16 13:10 Glucose (Fingerstick) 130mg/dL (70-99) Laboratory Tests Test 04/12/16 14:58 04/12/16 15:00 04/12/16 17:22 04/13/16 06:34 Glucose (Fingerstick) 185mg/dL (70-99) 135mg/dL (70-99) Ammonia 31mcmol/L (11-34) White Blood Count 12.6x10^3/uL (4.0-11.0) Red Blood Count 2.90x10^6/uL (3.50-5.40) Hemoglobin 8.8g/dL (12.0-15.5) Hematocrit 26.6% (36.0-47.0) Mean Corpuscular Volume 92fL (79-100) Mean Corpuscular Hemoglobin 30pg (25-35) Mean Corpuscular Hemoglobin Concent 33g/dL (31-37) Red Cell Distribution Width 15.5% (11.5-14.5) Platelet Count 78x10^3/uL (140-400) Neutrophils (%) (Auto) 88% (31-73) Lymphocytes (%) (Auto) 5% (24-48) Monocytes (%) (Auto) 5% (0-9) Eosinophils (%) (Auto) 2% (0-3) Basophils (%) (Auto) 0% (0-3) Neutrophils # (Auto) 11.0x10^3uL (1.8-7.7) Lymphocytes # (Auto) 0.6x10^3/uL (1.0-4.8) Monocytes # (Auto) 0.6x10^3/uL (0.0-1.1) Eosinophils # (Auto) 0.3x10^3/uL (0.0-0.7) Basophils # (Auto) 0.0x10^3/uL (0.0-0.2) Sodium Level 137mmol/L (136-145) Potassium Level 4.8mmol/L (3.5-5.1) Chloride Level 98mmol/L (98-107) Carbon Dioxide Level 24mmol/L (21-32) Anion Gap 15 (6-14) Blood Urea Nitrogen 51mg/dL (7-20) Creatinine 3.6mg/dL (0.6-1.0) Estimated GFR (Cockcroft-Gault) 13.2 BUN/Creatinine Ratio 14 (6-20) Glucose Level 128mg/dL (70-99) Lactic Acid Level 3.5mmol/L (0.4-2.0) Calcium Level 7.9mg/dL (8.5-10.1) Magnesium Level 1.6mg/dL (1.8-2.4) Total Bilirubin 2.9mg/dL (0.2-1.0) Aspartate Amino Transf (AST/SGOT) 4108U/L (15-37) Alanine Aminotransferase (ALT/SGPT) 3620U/L (14-59) Alkaline Phosphatase 57U/L (46-116) Lactate Dehydrogenase 2970U/L (81-234) Total Protein 6.0g/dL (6.4-8.2) Albumin 2.9g/dL (3.4-5.0) Albumin/Globulin Ratio 0.9 (1.0-1.7) Acetaminophen Level < 2.0mcg/ml (10-30) Acetaminophen Last Dose Date Unknown Acetaminophen Last Dose Time Unknown Test 04/13/16 12:00 04/13/16 13:10 Fibrinogen 526mg/dL (200-440) Glucose (Fingerstick) 130mg/dL (70-99) Medications Current Medications Acetaminophen (Tylenol) 650 mg PRN Q6HRS PRN PO Headaches, Temp > 101.5'; Start 04/12/16 at 02:30 Ondansetron HCl (Zofran) 4 mg PRN Q6HRS PRN IV NAUSEA/VOMITING; Start 04/12/16 at 02:30 Famotidine (Pepcid) 20 mg BID IVP Last administered on 04/13/16 10:07; Start 04/12/16 at 09:00 Info 1 ea DAILY MC ; Start 04/12/16 at 09:00 Fentanyl Citrate (Fentanyl 2ml Vial) 25 mcg PRN Q1HR PRN IV COMM Last administered on 04/13/16 00:27; Start 04/12/16 at 02:30 Fentanyl Citrate 50 mcg 50 mcg PRN Q1HR PRN IV COMM Last administered on 03:18; Start 04/12/16 at 02:30 Norepinephrine Bitartrate/Sodium Chloride (Levophed Vial/ Iv Sodium Chloride 0.9 % 250ml) 258 ml @ 0 mls/hr CONT PRN IV SEE I/O RECORD Last administered on 04/13 02:55; Start 04/12/16 at 02:30 Haloperidol Lactate (Haldol) 5 mg PRN Q6HRS PRN IVP AGITATION Last administered on 04/12/16 05:28; Start 04/12/16 at 02:30 Acetaminophen (Tylenol) 650 mg PRN Q6HRS PRN AR MILD PAIN / TEMP Last administered on 04/12/16 03:36; Start 04/12/16 at 03:30 Nystatin (Nystop) 1 gabrielle BID TP Last administered on 04/13/16 10:08; Start 01/16 at 03:30 Insulin Aspart (Novolog) 0-9 UNITS TIDWMEALS SQ Last administered on 04/12/16 09:23; Start 04/12/16 at 08:00 Dextrose 12.5 gm PRN Q15MIN PRN IV SEE COMMENTS; Start 04/12/16 at 04:00 Info 1 each 1 each PRN DAILY PRN MC SEE COMMENTS; Start 04/12/16 at 06:30 Piperacillin Sod/ Tazobactam Sod 3.375 gm/Sodium Chloride 50 ml @ 100 mls/hr Q8HRS IV ; Start 04/12/16 at 14:00; Stop 04/12/16 at 14:00; Status DC Levofloxacin/ Dextrose 100 ml @ 100 mls/hr 1X ONCE IV Last administered on 08:48; Start 04/12/16 at 08:00; Stop 04/12/16 at 08:59; Status DC Ceftriaxone Sodium 1 gm/ Sodium Chloride 50 ml @ 100 mls/hr Q24H IV Last administered on 04/12/16 08:48; Start 04/12/16 at 09:00; Stop 04/12/16 at 10:25 ; Status DC Piperacillin Sod/ Tazobactam Sod/ Sodium Chloride (Zosyn/Iv Sodium Chloride 0.9 % 50ml) 50 ml @ 100 mls/hr Q8HRS IV Last administered on 04/13/16 04:59; Start 04/12/16 at 14:00 Lidocaine/Sodium Bicarbonate (Buffered Lidocaine 1%) 3 ml 1X ONCE IJ Last administered on 04/12/16 12:45; Start 04/12/16 at 12:45; Stop 04/12/16 at 12:47 ; Status DC Heparin Sodium/ Sodium Chloride 60 unit 1X ONCE IV Last administered on 12:45; Start 04/12/16 at 12:45; Stop 04/12/16 at 12:47; Status DC Heparin Sodium (Porcine) 2,500 unit 1X ONCE INT CAT Last administered on 12:45; Start 04/12/16 at 12:45; Stop 04/12/16 at 12:47; Status DC Heparin Sodium (Porcine) 23135 unit 10,000 unit STK-MED ONCE .ROUTE ; Start 01/16 at 12:51; Stop 04/12/16 at 12:52; Status DC Sodium Chloride 1,000 ml @ 1,000 mls/hr Q1H PRN IV hypotension; Start 04/12/16 at 16:27; Stop 04/12/16 at 22:26; Status DC Albumin Human (Albuminar) 200 ml @ 200 mls/hr 1X PRN PRN IV Hypotension Last administered on 04/12/16 17:21; Start 04/12/16 at 16:30; Stop 04/12/16 at 22:29 ; Status DC Midodrine (Proamatine) 5 mg 1X ONCE PO ; Start 04/12/16 at 16:30; Stop at 16:34; Status DC Diphenhydramine HCl (Benadryl) 25 mg 1X PRN PRN IV ITCHING; Start 04/12/16 at 16:30; Stop 04/13/16 at 11:10; Status DC Diphenhydramine HCl (Benadryl) 25 mg 1X PRN PRN IV ITCHING; Start 04/12/16 at 16:30; Stop 04/13/16 at 11:10; Status DC Info 1 each 1 each PRN DAILY PRN MC SEE COMMENTS; Start 04/12/16 at 16:30; Status UNV Sodium Chloride 1,000 ml @ 15 mls/hr Q24H IV Last administered on 04/12/16 18 :14; Start 04/12/16 at 14:00 Sodium Chloride 250 ml @ 250 mls/hr 1X ONCE IV Last administered on 22:34; Start 04/12/16 at 22:30; Stop 04/12/16 at 23:29; Status DC Sodium Chloride 1,000 ml @ 75 mls/hr [id number] IV ; Start 04/13/16 at 09:30 Sodium Chloride 1,000 ml @ 1,000 mls/hr 1X ONCE IV Last administered on 10:10; Start 04/13/16 at 09:30; Stop 04/13/16 at 10:29; Status DC Amino Acids/ Glycerin/ Electrolytes (Procalamine) 1,000 ml @ 80 mls/hr [id number] IV Last administered on 04/13/16 13:27; Start 04/13/16 at 10:00 Active Scripts Active Reported Chlorthalidone 25 Mg Tablet 1 Tab PO DAILY Magnesium (Magnesium Oxide) 250 Mg Tablet 250 Mg PO DAILY Glimepiride 4 Mg Tablet 1 Tab PO BID Proair Hfa Inhaler (Albuterol Sulfate) 8.5 Gm Hfa.aer.ad 1 Puff INH PRN Q6HRS PRN Chlorthalidone 25 Mg Tablet 1 Tab PO DAILY Lisinopril 5 Mg Tablet 1 Tab PO DAILY Crestor (Rosuvastatin Calcium) 20 Mg Tablet 1 Tab PO HS Gabapentin 300 Mg Capsule 300 Mg PO HS Multi Vitamin Daily (Multivitamin) 1 Each Tablet 1 Each PO DAILY Bumetanide 2 Mg Tablet 2 Mg PO DAILY Aspirin Ec (Aspirin) 81 Mg Tablet.dr 81 Mg PO DAILY Potassium Chloride 20 Meq Tab.er.prt 20 Meq PO DAILY Vitals/I & O Vital Sign - Last 24 Hours 04/12/16 04/12/16 04/12/16 04/12/16 14:00 15:00 15:52 16:00 Temp 99.1 99.1 Pulse 116 116 116 Resp 26 22 20 B/P 118/82 135/70 120/60 Pulse Ox 100 96 O2 Delivery Nasal Cannula Nasal Cannula Nasal Cannula Room Air O2 Flow Rate 2.0 2.0 2.0 04/12/16 04/12/16 04/12/16 04/12/16 17:00 18:00 19:00 20:00 Pulse 124 128 132 Resp 26 24 28 B/P 131/50 126/71 111/49 Pulse Ox 94 96 98 O2 Delivery Nasal Cannula Nasal Cannula Nasal Cannula Nasal Cannula O2 Flow Rate 2.0 2.0 3.0 3.0 04/12/16 04/12/16 04/12/16 04/12/16 20:00 20:55 21:00 22:00 Temp 100.0 100.0 Pulse 138 141 141 Resp 30 30 30 31 B/P 111/47 130/46 102/53 Pulse Ox 97 98 97 98 O2 Delivery Nasal Cannula Nasal Cannula Nasal Cannula Nasal Cannula O2 Flow Rate 3.0 3.0 3.0 3.0 04/12/16 04/13/16 04/13/16 04/13/16 23:00 00:00 00:00 00:27 Temp 98.9 98.9 Pulse 136 134 Resp 37 22 28 B/P 97/48 96/48 Pulse Ox 98 96 94 O2 Delivery Nasal Cannula Nasal Cannula Nasal Cannula Nasal Cannula O2 Flow Rate 3.0 3.0 3.0 2.0 04/13/16 04/13/16 04/13/16 04/13/16 00:57 01:00 02:00 03:00 Pulse 132 132 132 Resp 21 21 20 20 B/P 96/51 102/49 108/51 Pulse Ox 94 96 94 98 O2 Delivery Nasal Cannula Nasal Cannula Nasal Cannula Nasal Cannula O2 Flow Rate 2.0 3.0 3.0 2.0 04/13/16 04/13/16 04/13/16 04/13/16 03:18 03:44 04:00 04:00 Temp 99.1 99.1 Pulse 131 Resp 22 B/P 116/55 Pulse Ox 98 99 95 O2 Delivery Nasal Cannula Nasal Cannula Nasal Cannula Nasal Cannula O2 Flow Rate 2.0 2.0 2.0 2.0 04/13/16 04/13/16 04/13/16 05:00 06:00 07:00 Pulse 130 135 128 Resp 30 25 24 B/P 117/50 91/44 96/78 Pulse Ox 99 98 97 O2 Delivery Nasal Cannula Nasal Cannula Nasal Cannula O2 Flow Rate 2.0 2.0 2.0 Intake and Output 04/12/16 04/12/16 04/13/16 15:00 23:00 07:00 Intake Total 150 ml 620 ml 415 ml Output Total 45 ml 153 ml 24 ml Balance 105 ml 467 ml 391 ml ANA DONALDSON MD Apr 13, 2016 13:59
[2016-04-13] MEDS: IV NORMAL SALINE 1000ML BAG 1,000 ML IV SCH ×3 (14:00→21:31)
--- NOTE | 2016-04-13 14:13 | PDOC ---
Provider Note Provider Note Onc consult dictated- [id number] Elevated D dimer likely reactive to her underling severe sepsis with shock. EFRAIN LAI DO Apr 13, 2016 14:13
--- NOTE | 2016-04-13 14:28 | CONS ---
DATE OF CONSULTATION: 04/12/2016 REFERRING PHYSICIAN: Dr. Sepulveda. REASON FOR CONSULTATION: Sepsis. HISTORY OF PRESENT ILLNESS: The patient is a 55-year-old female with history of chronic obstructive pulmonary disease, chronic renal failure, status post nephrectomy, diabetes mellitus type 1, and history of congestive heart failure who presented to [facility] in [place] with altered mental status, fevers and chills. She was found to have elevated white blood cell count of 12,300 with a lactic acid of 7.1. She was in acute renal failure with a creatinine of 3.5, BUN 70, potassium 5.6. She had elevated liver function, her liver enzymes were elevated. BNP level was greater than 350,000 with a troponin of 2.105 and creatinine kinase 312. Urinalysis is unremarkable for infection. Chest x-ray was unremarkable. She was dosed with vancomycin and ceftriaxone. She has since been transferred to [facility] for further evaluation and management. Dr. Bryce Tang, Infectious Disease was notified earlier and added an one-time dose of levofloxacin, held the vancomycin and changed to Zosyn. The patient is currently in the MICU. She is lethargic and hypotensive requiring vasopressor support. The patient will have a dialysis catheter placement in anticipation for dialysis later today. History of present illness, past medical history, and review of systems are unobtainable from patient. There is no family present at the time. PAST MEDICAL HISTORY: Influenza A in 2013, hypertension, chronic kidney disease, coronary artery disease, diabetes mellitus type 1, diabetic foot ulcer, cataracts status post lens transplant bilaterally, chronic systolic congestive heart failure. PAST SURGICAL HISTORY: Left nephrectomy, hysterectomy, pacemaker/defibrillator, obesity. FAMILY HISTORY: Positive for diabetes mellitus and hypertension. SOCIAL HISTORY: The patient lives at home. She is a smoker. No history of alcohol and illicit drug use reported. ALLERGIES: SULFAMETHOXAZOLE, TRIMETHOPRIM AND VENOM HONEY BEE. ROS : as per HPI through RN , pt is not able to say. MEDICATIONS: At one-time dose of vancomycin, 2-11. Ceftriaxone. Piperacillin/tazobactam. Onetime dose of levofloxacin. Other medications are available and have been reviewed on the APR. PHYSICAL EXAMINATION: GENERAL: female lying in bed in no apparent distress. VITAL SIGNS: Temperature is 98.9, T-max 101.7, blood pressure 104/61, heart rate 60, respiratory rate 24, pulse oximetry is 100% on 2 liters nasal cannula. weight is 50. Weight is 213.5 pounds. HEENT: Pupils equally round. Normal conjunctivae. Oral mucosa is pink and dry. No thrush. NECK: Supple, no adenopathy present. LUNGS: Clear to auscultation. HEART: Normal S1, S2. Tachycardic. Irregular. ABDOMEN: Obese, bowel sounds are present, soft. No grimace or guarding to palpation. GENITOURINARY: She has got Grant in place. EXTREMITIES: No gross edema or cyanosis. SKIN: Without rash. Warm to touch. NEUROLOGIC: The patient opens her eyes to pain and softly moans with gentle tactile stimulation. Decreased attention span. LINES: RIJ, clean. LABORATORY DATA: Recent WBC 13,000, hemoglobin 9.8, platelet count 76,000. Segs 54% bands, 40% lymphocytes 1%. Sodium 128, potassium 5.7, creatinine 3.9, BUN 77. Glucose 318, BP lactic acid 5.3. Total bilirubin 0.9, AST 907, ALT 3751. Troponin 2.934, procalcitonin 73.42, albumin 2.5. Blood cultures from [facility] pending. IMAGING STUDIES: Chest x-ray shows pericardial cardiac silhouette somewhat more prominent than previously, although possibly accentuated by differences in technique. There is a significant pleural fluid or infiltrate. No pneumothorax. Right internal jugular venous catheter with tip in superior vena cava. KUB. Single electronic cardiac device noted. IMPRESSION: 1. Sepsis with hypotension, present on admission. 2. Lactic acidosis. 3. Acute kidney injury on chronic kidney disease with history of left nephrectomy. 4. Acute congestive heart failure. 5. Elevated liver enzymes. 6. Diabetes mellitus type 1. 7. Obesity. PLAN: Hold further doses of vancomycin given the patient's decline in renal function. Continue the Zosyn, one-time dose of levofloxacin already given and both were adjusted for renal failure. Discontinue the ceftriaxone. Repeat labs in the morning and await culture results. Records from [facility] were reviewed. Critically ill. Thank you, Dr. Sepulveda for asking us to participate in this patient's care. Should you have further questions or concerns, please call. Patient see, examined and plan of care implemented by Dr. Bryce Tang. BRYCE TANG MD DR: Darrin JOB#: [id number] / [id number] GLENROY
[2016-04-13] MEDS ORDERED: MAGNESIUM SULFATE 2GM 50 ML IV ONE (15:00)
[2016-04-13 16:11] LABS: HEP B SURFACE ABDY Non Reactive (.)
[2016-04-13] MEDS: HALOPERIDOL LACT 5 MG/ML VIAL. IVP PRN (19:38)
[2016-04-14] VITALS (25 sets, daily range): BP systolic 93–143; BP diastolic 43–88
--- NOTE | 2016-04-14 01:02 | CONS ---
DATE OF CONSULTATION: 04/13/2016 REFERRING PROVIDER: Dr. Barrera. REASON FOR CONSULTATION: Elevated D-dimer. HISTORY OF PRESENT ILLNESS: The patient is a 55-year-old female who presented to [facility] Emergency Room with altered mental status, acute kidney insufficiency and severe sepsis with shock, now on Levophed and with evidence of ischemic hepatitis. Liver enzymes are now in the 4000s. Prior to transfer she was noted to have a D-dimer elevated above 19. INR was 1.6. She is protecting her airway and maintaining oxygen saturation. She has been too lethargic to provide any additional information since her transfer here. There are no family members available. All my information below was obtained via chart review. PAST MEDICAL HISTORY: Cardiomyopathy, end-stage renal disease, hypertension, obesity, hyperlipidemia, COPD. PAST SURGICAL HISTORY: ICD placement, hysterectomy. FAMILY HISTORY: Unobtainable. SOCIAL HISTORY: Unobtainable. ALLERGIES: BACTRIM, BEES. CURRENT MEDICATIONS: Tylenol, Pepcid, fentanyl, Haldol, Zofran, Levophed. REVIEW OF SYSTEMS: Unobtainable due to the patient's sedated status. PHYSICAL EXAMINATION: VITAL SIGNS: Temperature 99.1, pulse 130, respiratory rate 22, blood pressure 116/55, 95% O2 on 2 liters. GENERAL: She is lethargic. She does groan at times, but is not responsive to any verbal or physical stimuli. HEENT: Dry mucous membranes. Eyes closed. CARDIOVASCULAR: Heart is tachycardic, but regular in rhythm. LUNGS: Clear to auscultation bilaterally. ABDOMEN: Obese. No obvious organomegaly. EXTREMITIES: No edema. NEUROLOGIC: Unresponsive. IMAGING/LABORATORY DATA: Hemoglobin 8.8, white blood cell count 12.6 with increased neutrophils and bands. Platelets 78. Liver enzymes yesterday were in the 200s, but today are in the 4000s. D-dimer was above 19. Abdominal ultrasound did not reveal any significant findings. Chest x-ray was unremarkable for any infiltrate. Her cardiac silhouette is enlarged. ASSESSMENT AND PLAN: The patient is a 55-year-old female with the following medical problems: 1. Elevated D-dimer. This is likely reactive to her severe sepsis with shock. I added on fibrinogen which came back elevated. She does not have any evidence of DIC. She has been able to protect her airway and does not seem to be desaturating. I think her risk of underlying thrombosis is very low. 2. Severe sepsis with shock, ischemic hepatitis. She is now requiring Levophed. Discussed with Dr. Barrera. EFRAIN LAI DO DR: JUAN MIGUEL/jenna JOB#: [id number] / [id number] GLENROY
[2016-04-14] MEDS: HALOPERIDOL LACT 5 MG/ML VIAL. IVP PRN ×3 (02:23→23:26)
[2016-04-14] MEDS: FENTANYL PF 100 MCG/2 ML VIAL. IV PRN ×2 (02:24→05:23)
[2016-04-14] MEDS: PIPERACILLIN/TAZOBACTAM 2.25 GM in IV NORMAL SALINE 50ML 50 ML IV SCH ×3 (05:23→22:29)
[2016-04-14 06:25] LABS: INR 2.3 (0.8-1.1); PROTHROMBIN TIME PATIENT 24.3 SEC (11.7-14.0)
[2016-04-14] MEDS: INSULIN ASPART 300 UNITS/3 ML INSULN.PEN SQ SCH ×3 (08:00→17:00)
--- NOTE | 2016-04-14 08:06 | PDOC ---
Infectious Disease Note Subjective Subjective + cough Less fever opens eyes and speaks some ROS ROS unable to do Vital Sign Vital Signs Vital Signs Date Time Temp Pulse Resp B/P Pulse Ox O2 Delivery O2 Flow Rate FiO2 04/14/16 07:00 124 30 117/52 96 Room Air 04/14/16 04:00 2.0 04/14/16 04:00 98.5 98.5 Physical Exam PHYSICAL EXAM GENERAL: NAD, Alert HEENT: PERRL, OC/OP NECK: Supple, no JVD, no LN LUNGS: Clear HEART: S1S2, no gallop, no murmur ABD: Soft, NT, no organomegaly, no rebound EXT: No edema, no cyanosis GROUNDS CARETAKER: Alert, oriented x 3, no focal neurologic deficit SKIN: No rash IV: ok Labs Lab Laboratory Tests Test 04/13/16 12:00 04/13/16 13:10 04/13/16 17:00 04/14/16 05:30 Fibrinogen 526mg/dL (200-440) Glucose (Fingerstick) 130mg/dL (70-99) 158mg/dL (70-99) Prothrombin Time 24.3SEC (11.7-14.0) Prothromb Time International Ratio 2.3 (0.8-1.1) Micro culture neg Objective Assessment Sepsis with hypotension. on Levophed POA Lactic acidosis, improving YAN on CKD. h/o nephrectomy. Now on HD Acute CHF. BNP > 350,000 ([facility]) Elevated LFTs Diabetes mellitus Type I Pacemaker/defibrillator Obesity Plan Plan of Care Zosyn One time dose vanc at [facility]. Hold further doses given renal function One time dose Levaquin 04/12. BC from [facility] NGTD f/u today's CMP & US Critically ill DRISS TANG MD Apr 14, 2016 08:06
--- NOTE | 2016-04-14 08:08 | CARD ---
APPROVED REPORT EXAM: Two-dimensional and M-mode echocardiogram with Doppler and color Doppler. Other Information Quality : Good INDICATION Septic Shock, Altered Mental Status 2D DIMENSIONS RVDd3.1 (2.9-3.5cm)Left Atrium(2D)4.7 (1.6-4.0cm) IVSd1.1 (0.7-1.1cm)Aortic Root(2D)2.4 (2.0-3.7cm) LVDd5.2 (3.9-5.9cm)LVOT Diameter2.0 (1.8-2.4cm) PWd0.9 (0.7-1.1cm)LVDs4.6 (2.5-4.0cm) FS (%) 11.9 %SV32.9 ml LVEF(%)25.6 (>50%) Aortic Valve AoV Peak Nelson.169.9cm/sAoV VTI23.5cm AO Peak GR.11.5mmHgLVOT VTI 15.64cm AO Mean GR.8mmHgAVA (VTI)2.05cm2 Mitral Valve MV E Lmxxlvcs341.3cm/sMV DECEL [id number] TDI Lateral E' P. V7.98cm/sMedial E' P. V6.82cm/s E/Lateral E'14.1E/Medial E'16.5 Tricuspid Valve TR P. Twalsqjs969ja/sRAP AYHEPVIP37gwWz TR Peak Gr.94qbLkWSNN57lnZx Pulmonary Vein S1 Vzbnnuaz82.9cm/sS2 Kxheujhy19.02cm/s D2 Tampdfxy37.0cm/s LEFT VENTRICLE The left ventricle is normal size. There is normal left ventricular wall thickness. Left ventricle sy stolic function is severely impaired. The Ejection Fraction is 20-25%. There is global hypokinesis of the left ventricle. Apical motion consistent with pacemaker activation. RIGHT VENTRICLE The right ventricle is normal size. The right ventricular systolic function is normal. ATRIA The left atrium is mildly dilated. The right atrium size is normal. The interatrial septum is intact with no evidence for an atrial septal defect or patent foramen ovale as noted on 2-D or Doppler imagi ng. AORTIC VALVE The aortic valve is calcified but opens well. Doppler and Color Flow revealed no significant aortic r egurgitation. There is no significant aortic valvular stenosis. MITRAL VALVE The mitral valve is calcified but opens well. Mitral annular calcification is mild. There is no evide nce of mitral valve prolapse. There is no mitral valve stenosis. Doppler and Color-flow revealed trac e to mild mitral regurgitation. TRICUSPID VALVE The tricuspid valve is normal in structure and function. Doppler and Color Flow revealed mild tricusp id regurgitation.There is moderately severe pulmonary hypertension. The PA pressure was estimated at 65 mmHg. There is no tricuspid valve stenosis. PULMONIC VALVE Doppler and Color Flow revealed trace pulmonic valvular regurgitation. There is no pulmonic valvular stenosis. GREAT VESSELS The aortic root is normal in size. The ascending aorta is normal in size. The IVC is dilated and alexi apses <50% with inspiration consistent with volume overload. PERICARDIAL EFFUSION There is no evidence of significant pericardial effusion. Critical Notification Critical Value: No <Conclusion> There is global hypokinesis of the left ventricle. Apical motion consistent with pacemaker activatio n. Doppler and Color Flow revealed mild tricuspid regurgitation.There is moderately severe pulmonary hyp ertension. The PA pressure was estimated at 65 mmHg. The IVC is dilated and collapses <50% with inspiration consistent with volume overload. Left ventricle systolic function is severely impaired. The Ejection Fraction is 20-25%.
[2016-04-14] MEDS ORDERED: IV NORMAL SALINE 1000ML BAG 1,000 ML IV PRN ×2 (08:13)
[2016-04-14] MEDS ORDERED: DIALYSIS PATIENT. MC PRN (08:15)
[2016-04-14] MEDS ORDERED: DIPHENHYDRAMINE 50 MG/ML VIAL IV PRN ×2 (08:15)
[2016-04-14] MEDS ORDERED: 0.9 % SODIUM CHLORIDE 10 ML DISP.SYRIN. IV PRN ×2 (08:15)
[2016-04-14] MEDS: NYSTATIN TOPICAL POWDER 15GM BOTTLE. TP SCH ×2 (09:00→20:50)
[2016-04-14] MEDS: ELECTROLYTE (ICU) PROTOCOL. MC SCH (09:00)
[2016-04-14] MEDS ORDERED: MAGNESIUM SULFATE 2GM 50 ML IV PRN (09:30)
--- NOTE | 2016-04-14 09:32 | PDOC ---
Dialysis Progress Note Dialysis Note Dialysis Note Seen on Hemodialysis, tolerating treatment Okay so far Vitals on Hemodialysis: 123/48 121 General Appearance: Asleep No tarousable Neck: No JVD or JVP Chest: CTA Tod Heart: S1 S2 Abdomen - Soft ND Min TTP Extremities - No Edema ARF/ ATN + CKD IV ( ast baseline) : (Probably ESRD) Dialysis as below F 180 NR 3.5 Hrs 3 K 2.5 Ca 140 Na 35 HC03 Qb 350 + Qd 500+ Heparin 0 Units Uf 0 Kgs or to dry weight as tolerated May give 25-50 gms of 25% Albumin if needed to maintain Hemodynamic stability Treatment plan reviewed and discussed with wrapping machine tender Vitals Vital Signs Vital Signs Date Time Temp Pulse Resp B/P Pulse Ox O2 Delivery O2 Flow Rate FiO2 04/14/16 08:00 98.8 121 26 119/55 95 Room Air 98.8 04/14/16 04:00 2.0 Labs Last Labs Laboratory Tests Test 04/12/16 12:25 04/12/16 14:58 04/12/16 15:00 04/12/16 17:22 Troponin I Quantitative 3.237ng/mL (0.000-0.055) Glucose (Fingerstick) 185mg/dL (70-99) 135mg/dL (70-99) Ammonia 31mcmol/L (11-34) Test 04/13/16 06:34 04/13/16 12:00 04/13/16 13:10 04/13/16 17:00 White Blood Count 12.6x10^3/uL (4.0-11.0) Red Blood Count 2.90x10^6/uL (3.50-5.40) Hemoglobin 8.8g/dL (12.0-15.5) Hematocrit 26.6% (36.0-47.0) Mean Corpuscular Volume 92fL (79-100) Mean Corpuscular Hemoglobin 30pg (25-35) Mean Corpuscular Hemoglobin Concent 33g/dL (31-37) Red Cell Distribution Width 15.5% (11.5-14.5) Platelet Count 78x10^3/uL (140-400) Neutrophils (%) (Auto) 88% (31-73) Lymphocytes (%) (Auto) 5% (24-48) Monocytes (%) (Auto) 5% (0-9) Eosinophils (%) (Auto) 2% (0-3) Basophils (%) (Auto) 0% (0-3) Neutrophils # (Auto) 11.0x10^3uL (1.8-7.7) Lymphocytes # (Auto) 0.6x10^3/uL (1.0-4.8) Monocytes # (Auto) 0.6x10^3/uL (0.0-1.1) Eosinophils # (Auto) 0.3x10^3/uL (0.0-0.7) Basophils # (Auto) 0.0x10^3/uL (0.0-0.2) Sodium Level 137mmol/L (136-145) Potassium Level 4.8mmol/L (3.5-5.1) Chloride Level 98mmol/L (98-107) Carbon Dioxide Level 24mmol/L (21-32) Anion Gap 15 (6-14) Blood Urea Nitrogen 51mg/dL (7-20) Creatinine 3.6mg/dL (0.6-1.0) Estimated GFR (Cockcroft-Gault) 13.2 BUN/Creatinine Ratio 14 (6-20) Glucose Level 128mg/dL (70-99) Lactic Acid Level 3.5mmol/L (0.4-2.0) Calcium Level 7.9mg/dL (8.5-10.1) Magnesium Level 1.6mg/dL (1.8-2.4) Total Bilirubin 2.9mg/dL (0.2-1.0) Aspartate Amino Transf (AST/SGOT) 4108U/L (15-37) Alanine Aminotransferase (ALT/SGPT) 3620U/L (14-59) Alkaline Phosphatase 57U/L (46-116) Lactate Dehydrogenase 2970U/L (81-234) Total Protein 6.0g/dL (6.4-8.2) Albumin 2.9g/dL (3.4-5.0) Albumin/Globulin Ratio 0.9 (1.0-1.7) Acetaminophen Level < 2.0mcg/ml (10-30) Acetaminophen Last Dose Date Unknown Acetaminophen Last Dose Time Unknown Fibrinogen 526mg/dL (200-440) Glucose (Fingerstick) 130mg/dL (70-99) 158mg/dL (70-99) Test 04/14/16 05:30 04/14/16 08:21 Prothrombin Time 24.3SEC (11.7-14.0) Prothromb Time International Ratio 2.3 (0.8-1.1) Sodium Level 139mmol/L (136-145) Potassium Level 4.7mmol/L (3.5-5.1) Chloride Level 100mmol/L (98-107) Carbon Dioxide Level 22mmol/L (21-32) Anion Gap 17 (6-14) Blood Urea Nitrogen 65mg/dL (7-20) Creatinine 4.7mg/dL (0.6-1.0) Estimated GFR (Cockcroft-Gault) 9.7 Glucose Level 145mg/dL (70-99) Calcium Level 7.5mg/dL (8.5-10.1) Glucose (Fingerstick) 156mg/dL (70-99) Laboratory Tests Test 04/13/16 12:00 04/13/16 13:10 04/13/16 17:00 04/14/16 05:30 Fibrinogen 526mg/dL (200-440) Glucose (Fingerstick) 130mg/dL (70-99) 158mg/dL (70-99) Prothrombin Time 24.3SEC (11.7-14.0) Prothromb Time International Ratio 2.3 (0.8-1.1) Sodium Level 139mmol/L (136-145) Potassium Level 4.7mmol/L (3.5-5.1) Chloride Level 100mmol/L (98-107) Carbon Dioxide Level 22mmol/L (21-32) Anion Gap 17 (6-14) Blood Urea Nitrogen 65mg/dL (7-20) Creatinine 4.7mg/dL (0.6-1.0) Estimated GFR (Cockcroft-Gault) 9.7 Glucose Level 145mg/dL (70-99) Calcium Level 7.5mg/dL (8.5-10.1) Test 04/14/16 08:21 Glucose (Fingerstick) 156mg/dL (70-99) GANGA TANG MD Apr 14, 2016 09:32
[2016-04-14 10:11] LABS: ALBUMIN 2.2 g/dL (3.4-5.0); ALBUMIN/GLOBULIN RATIO 0.6 (1.0-1.7); CREATININE 3.7 mg/dL (0.6-1.0); GFR 12.8; POTASSIUM 3.9 mmol/L (3.5-5.1); TOTAL BILIRUBIN 3.5 mg/dL (0.2-1.0); TOTAL PROTEIN 5.8 g/dL (6.4-8.2)
--- NOTE | 2016-04-14 10:53 | PDOC ---
MARILU AMADOR ADVERTISING INSERTER 04/14/16 1053: CARDIO Progress Notes Date and Time Date of Service 04/14/2016 Time of Evaluation 1030 Subjective Subjective: Other (lethargic, moans when moved) Vitals Vitals Vital Signs Date Time Temp Pulse Resp B/P Pulse Ox O2 Delivery O2 Flow Rate FiO2 04/14/16 10:00 121 26 130/60 96 Room Air 04/14/16 08:00 98.8 98.8 04/14/16 04:00 2.0 Weight Weight [ ] Input and Output Intake and Output Intake and Output 04/14/16 07:00 Intake Total 3260 ml Output Total 77 ml Balance 3183 ml Intake Oral 0 ml IV Total 1482 ml Blood Product IV Normal Saline Flush 1778 ml Output Urine Total 77 ml Laboratory Labs Laboratory Tests Test 04/13/16 12:00 04/13/16 13:10 04/13/16 17:00 04/14/16 05:30 Fibrinogen 526mg/dL (200-440) Glucose (Fingerstick) 130mg/dL (70-99) 158mg/dL (70-99) Prothrombin Time 24.3SEC (11.7-14.0) Prothromb Time International Ratio 2.3 (0.8-1.1) Creatine Kinase 406U/L (26-192) Test 04/14/16 08:21 Glucose (Fingerstick) 156mg/dL (70-99) Physical Exam HEENT: Neck Supple W Full Motion Chest: Symmetric LUNGS: Other (diffuse faint wheeze with bibasilar crackles) Heart: S1S2, RRR (sinus tachycardia 100-120s) Extremities: Other (1+ bilateral LE pitting edema) Neurology: non-verbal, other (lethargic) Assessment Assessment 1. Multiorgan systemic failure/sepsis/shock liver 2. NSTEMI: likely type 2 related acute concurrent conditions 3. Acute systolic CHF with suspect underlying chronic CHF 4. YAN on CKD: likely endstage. On her 2nd HD today 5. Cardiomyopathy: Suspect NICM. EF 20-25% global hypokinesis and severe pulmonary HTN 6. Metabolic encephalopathy 7. Anemia/thrombocytopenia: Hgb 8.8/PLT78 Recommendations 1. Continue with supportive care 2. Levo weaning off. Sinus tach with occ PVCs. BP adequate will start on Lopressor IV. 3. If significant recovery then will obtain ischemic workup in the form of MPI. 4. Fluid off loading per HD. 5. CMP, Mg ANTONELLA LANCASTER MD 04/14/162151: CARDIO Progress Notes Plan Plan Pt. seen and examined. Agree with above ADVERTISING ASSISTANT MANAGER note. No acute events overnight. Still encephalopathic and edematous. labs reviewed. meds reviewed. Supportive care. Poor overall prognosis. No family to discuss issues, consider palliative care. MARILU AMADOR APRN Apr 14, 2016 10:53 ANTONELLA LANCASTER MD Apr 14, 2016 21:52
--- NOTE | 2016-04-14 11:14 | PDOC ---
Objective: Vital Signs: Vital Signs Date Time Temp Pulse Resp B/P Pulse Ox O2 Delivery O2 Flow Rate FiO2 04/14/16 10:00 121 26 130/60 96 Room Air 04/14/16 08:00 98.8 98.8 04/14/16 04:00 2.0 Labs: Laboratory Tests Test 04/13/16 12:00 04/13/16 13:10 04/13/16 17:00 04/14/16 05:30 Fibrinogen 526mg/dL Glucose (Fingerstick) 130mg/dL 158mg/dL Prothrombin Time 24.3SEC Prothromb Time International Ratio 2.3 Creatine Kinase 406U/L Test 04/14/16 08:21 04/14/16 09:00 04/14/16 10:00 Glucose (Fingerstick) 156mg/dL Sodium Level 139mmol/L Potassium Level 3.9mmol/L Chloride Level 100mmol/L Carbon Dioxide Level 25mmol/L Anion Gap 14 Blood Urea Nitrogen 51mg/dL Creatinine 3.7mg/dL Estimated GFR (Cockcroft-Gault) 12.8 BUN/Creatinine Ratio 14 Glucose Level 143mg/dL Calcium Level 8.0mg/dL Total Bilirubin 3.5mg/dL Aspartate Amino Transf (AST/SGOT) 2235U/L Alanine Aminotransferase (ALT/SGPT) 2934U/L Alkaline Phosphatase 91U/L Total Protein 5.8g/dL Albumin 2.2g/dL Albumin/Globulin Ratio 0.6 Lactic Acid Level 1.4mmol/L PE: GEN: dialyzing LUNGS: decreased anteriorly, coughing HEART: tachycardic ABD: ?BS, obese, soft NEURO/PSYCH: eyes open, some moaning A/P: Elevated LFTs -ischemic -bili worse (3.5), AST/ALT some improvement (2235, 2934) -Hep B neg, acetaminophen < 2 AMS, sepsis, hypotension, lactic acidosis, YAN/CKD -- Will review w/ Dr. Penny. HANS CHASE Apr 14, 2016 11:14
[2016-04-14] MEDS: FAMOTIDINE 20 MG/2 ML VIAL IVP SCH ×2 (11:21→20:46)
[2016-04-14] MEDS: METOPROLOL TARTRATE 5 MG/5 ML VIAL. IVP SCH ×3 (11:30→23:30)
--- NOTE | 2016-04-14 13:09 | PDOC ---
PROGRESS NOTES Chief Complaint Chief Complaint A/P 1. Septic shock, POA, no clear etiology 2. [id number] congestive heart failure. 3. Elevated LFTs, possible due to shock POA 4. Elevated troponin POA 5. Elevated D dimer POA 6. Metabolic encephalopathy POA 7. Renal failure POA 8. Respiratory failure hypoxic 9. anemia 10. thrombocytopenia Plan On Levophed gtt, MAP > 65. on both NS and PPN Blood cx NEG so far CT head US showed left nephrectomy echo pEF 205 INR 2.5 Hematology consult ed Broad spectrum abx, ID following, on Zosyn, No source of external infection Intake and out HD per Nephrology d/w GI Prognosis poor/ guarded, cc time 35 min. pulm consult History of Present Illness History of Present Illness very lethargic worse LFT bp better on low dose levaphed on HD now low urine output EF 20% Vitals Vitals Vital Signs Date Time Temp Pulse Resp B/P Pulse Ox O2 Delivery O2 Flow Rate FiO2 04/14/16 10:00 121 26 130/60 96 Room Air 04/14/16 08:00 98.8 98.8 04/14/16 04:00 2.0 Physical Exam Physical Exam lethargic, aaox 0, not answer questions or follow commands Heart: Regular rate, Normal S1, Normal S2, No murmurs, Gallops Lungs: Other (bl coarse bs) Abdomen: Normal bowel sounds, Soft, No tenderness, No hepatosplenomegaly, No masses Extremities: No clubbing, No cyanosis, No edema, Normal pulses, No tenderness/ swelling Labs LABS Laboratory Tests Test 04/13/16 13:10 04/13/16 17:00 04/14/16 05:30 04/14/16 08:21 Glucose (Fingerstick) 130mg/dL (70-99) 158mg/dL (70-99) 156mg/dL (70-99) Prothrombin Time 24.3SEC (11.7-14.0) Prothromb Time International Ratio 2.3 (0.8-1.1) Creatine Kinase 406U/L (26-192) Test 04/14/16 09:00 04/14/16 10:00 04/14/16 11:29 Sodium Level 139mmol/L (136-145) Potassium Level 3.9mmol/L (3.5-5.1) Chloride Level 100mmol/L (98-107) Carbon Dioxide Level 25mmol/L (21-32) Anion Gap 14 (6-14) Blood Urea Nitrogen 51mg/dL (7-20) Creatinine 3.7mg/dL (0.6-1.0) Estimated GFR (Cockcroft-Gault) 12.8 BUN/Creatinine Ratio 14 (6-20) Glucose Level 143mg/dL (70-99) Calcium Level 8.0mg/dL (8.5-10.1) Magnesium Level 2.1mg/dL (1.8-2.4) Total Bilirubin 3.5mg/dL (0.2-1.0) Aspartate Amino Transf (AST/SGOT) 2235U/L (15-37) Alanine Aminotransferase (ALT/SGPT) 2934U/L (14-59) Alkaline Phosphatase 91U/L (46-116) Total Protein 5.8g/dL (6.4-8.2) Albumin 2.2g/dL (3.4-5.0) Albumin/Globulin Ratio 0.6 (1.0-1.7) Lactic Acid Level 1.4mmol/L (0.4-2.0) Glucose (Fingerstick) 110mg/dL (70-99) Review of Systems Review of Systems no fever, chills, sob or chest pain Comment Review of Relevant I have reviewed the following items nelda (where applicable) has been applied. Labs Laboratory Tests Test 04/12/16 14:58 04/12/16 15:00 04/12/16 17:22 04/13/16 06:34 Glucose (Fingerstick) 185mg/dL (70-99) 135mg/dL (70-99) Ammonia 31mcmol/L (11-34) White Blood Count 12.6x10^3/uL (4.0-11.0) Red Blood Count 2.90x10^6/uL (3.50-5.40) Hemoglobin 8.8g/dL (12.0-15.5) Hematocrit 26.6% (36.0-47.0) Mean Corpuscular Volume 92fL (79-100) Mean Corpuscular Hemoglobin 30pg (25-35) Mean Corpuscular Hemoglobin Concent 33g/dL (31-37) Red Cell Distribution Width 15.5% (11.5-14.5) Platelet Count 78x10^3/uL (140-400) Neutrophils (%) (Auto) 88% (31-73) Lymphocytes (%) (Auto) 5% (24-48) Monocytes (%) (Auto) 5% (0-9) Eosinophils (%) (Auto) 2% (0-3) Basophils (%) (Auto) 0% (0-3) Neutrophils # (Auto) 11.0x10^3uL (1.8-7.7) Lymphocytes # (Auto) 0.6x10^3/uL (1.0-4.8) Monocytes # (Auto) 0.6x10^3/uL (0.0-1.1) Eosinophils # (Auto) 0.3x10^3/uL (0.0-0.7) Basophils # (Auto) 0.0x10^3/uL (0.0-0.2) Sodium Level 137mmol/L (136-145) Potassium Level 4.8mmol/L (3.5-5.1) Chloride Level 98mmol/L (98-107) Carbon Dioxide Level 24mmol/L (21-32) Anion Gap 15 (6-14) Blood Urea Nitrogen 51mg/dL (7-20) Creatinine 3.6mg/dL (0.6-1.0) Estimated GFR (Cockcroft-Gault) 13.2 BUN/Creatinine Ratio 14 (6-20) Glucose Level 128mg/dL (70-99) Lactic Acid Level 3.5mmol/L (0.4-2.0) Calcium Level 7.9mg/dL (8.5-10.1) Magnesium Level 1.6mg/dL (1.8-2.4) Total Bilirubin 2.9mg/dL (0.2-1.0) Aspartate Amino Transf (AST/SGOT) 4108U/L (15-37) Alanine Aminotransferase (ALT/SGPT) 3620U/L (14-59) Alkaline Phosphatase 57U/L (46-116) Lactate Dehydrogenase 2970U/L (81-234) Total Protein 6.0g/dL (6.4-8.2) Albumin 2.9g/dL (3.4-5.0) Albumin/Globulin Ratio 0.9 (1.0-1.7) Acetaminophen Level < 2.0mcg/ml (10-30) Acetaminophen Last Dose Date Unknown Acetaminophen Last Dose Time Unknown Test 04/13/16 12:00 04/13/16 13:10 04/13/16 17:00 04/14/16 05:30 Fibrinogen 526mg/dL (200-440) Glucose (Fingerstick) 130mg/dL (70-99) 158mg/dL (70-99) Prothrombin Time 24.3SEC (11.7-14.0) Prothromb Time International Ratio 2.3 (0.8-1.1) Creatine Kinase 406U/L (26-192) Test 04/14/16 08:21 04/14/16 09:00 04/14/16 10:00 04/14/16 11:29 Glucose (Fingerstick) 156mg/dL (70-99) 110mg/dL (70-99) Sodium Level 139mmol/L (136-145) Potassium Level 3.9mmol/L (3.5-5.1) Chloride Level 100mmol/L (98-107) Carbon Dioxide Level 25mmol/L (21-32) Anion Gap 14 (6-14) Blood Urea Nitrogen 51mg/dL (7-20) Creatinine 3.7mg/dL (0.6-1.0) Estimated GFR (Cockcroft-Gault) 12.8 BUN/Creatinine Ratio 14 (6-20) Glucose Level 143mg/dL (70-99) Calcium Level 8.0mg/dL (8.5-10.1) Magnesium Level 2.1mg/dL (1.8-2.4) Total Bilirubin 3.5mg/dL (0.2-1.0) Aspartate Amino Transf (AST/SGOT) 2235U/L (15-37) Alanine Aminotransferase (ALT/SGPT) 2934U/L (14-59) Alkaline Phosphatase 91U/L (46-116) Total Protein 5.8g/dL (6.4-8.2) Albumin 2.2g/dL (3.4-5.0) Albumin/Globulin Ratio 0.6 (1.0-1.7) Lactic Acid Level 1.4mmol/L (0.4-2.0) Laboratory Tests Test 04/13/16 13:10 04/13/16 17:00 04/14/16 05:30 04/14/16 08:21 Glucose (Fingerstick) 130mg/dL (70-99) 158mg/dL (70-99) 156mg/dL (70-99) Prothrombin Time 24.3SEC (11.7-14.0) Prothromb Time International Ratio 2.3 (0.8-1.1) Creatine Kinase 406U/L (26-192) Test 04/14/16 09:00 04/14/16 10:00 04/14/16 11:29 Sodium Level 139mmol/L (136-145) Potassium Level 3.9mmol/L (3.5-5.1) Chloride Level 100mmol/L (98-107) Carbon Dioxide Level 25mmol/L (21-32) Anion Gap 14 (6-14) Blood Urea Nitrogen 51mg/dL (7-20) Creatinine 3.7mg/dL (0.6-1.0) Estimated GFR (Cockcroft-Gault) 12.8 BUN/Creatinine Ratio 14 (6-20) Glucose Level 143mg/dL (70-99) Calcium Level 8.0mg/dL (8.5-10.1) Magnesium Level 2.1mg/dL (1.8-2.4) Total Bilirubin 3.5mg/dL (0.2-1.0) Aspartate Amino Transf (AST/SGOT) 2235U/L (15-37) Alanine Aminotransferase (ALT/SGPT) 2934U/L (14-59) Alkaline Phosphatase 91U/L (46-116) Total Protein 5.8g/dL (6.4-8.2) Albumin 2.2g/dL (3.4-5.0) Albumin/Globulin Ratio 0.6 (1.0-1.7) Lactic Acid Level 1.4mmol/L (0.4-2.0) Glucose (Fingerstick) 110mg/dL (70-99) Microbiology 04/13/16 Blood Culture - Preliminary, Resulted NO GROWTH AFTER 1 DAY Medications Current Medications Acetaminophen (Tylenol) 650 mg PRN Q6HRS PRN PO Headaches, Temp > 101.5'; Start 04/12/16 at 02:30 Ondansetron HCl (Zofran) 4 mg PRN Q6HRS PRN IV NAUSEA/VOMITING; Start 04/12/16 at 02:30 Famotidine (Pepcid) 20 mg BID IVP Last administered on 04/14/16 11:21; Start 04/12/16 at 09:00 Info 1 ea DAILY MC ; Start 04/12/16 at 09:00 Fentanyl Citrate (Fentanyl 2ml Vial) 25 mcg PRN Q1HR PRN IV COMM Last administered on 04/13/16 00:27; Start 04/12/16 at 02:30 Fentanyl Citrate 50 mcg 50 mcg PRN Q1HR PRN IV COMM Last administered on 05:23; Start 04/12/16 at 02:30 Norepinephrine Bitartrate/Sodium Chloride (Levophed Vial/ Iv Sodium Chloride 0.9 % 250ml) 258 ml @ 0 mls/hr CONT PRN IV SEE I/O RECORD Last administered on 04/13 02:55; Start 04/12/16 at 02:30 Haloperidol Lactate (Haldol) 5 mg PRN Q6HRS PRN IVP AGITATION Last administered on 04/14/16 11:21; Start 04/12/16 at 02:30 Acetaminophen (Tylenol) 650 mg PRN Q6HRS PRN SD MILD PAIN / TEMP Last administered on 04/12/16 03:36; Start 04/12/16 at 03:30 Nystatin (Nystop) 1 gabrielle BID TP Last administered on 04/14/16 09:00; Start 01/16 at 03:30 Insulin Aspart (Novolog) 0-9 UNITS TIDWMEALS SQ Last administered on 04/13/16 17:06; Start 04/12/16 at 08:00 Dextrose 12.5 gm PRN Q15MIN PRN IV SEE COMMENTS; Start 04/12/16 at 04:00 Info 1 each 1 each PRN DAILY PRN MC SEE COMMENTS; Start 04/12/16 at 06:30 Piperacillin Sod/ Tazobactam Sod 3.375 gm/Sodium Chloride 50 ml @ 100 mls/hr Q8HRS IV ; Start 04/12/16 at 14:00; Stop 04/12/16 at 14:00; Status DC Levofloxacin/ Dextrose 100 ml @ 100 mls/hr 1X ONCE IV Last administered on 08:48; Start 04/12/16 at 08:00; Stop 04/12/16 at 08:59; Status DC Ceftriaxone Sodium 1 gm/ Sodium Chloride 50 ml @ 100 mls/hr Q24H IV Last administered on 04/12/16 08:48; Start 04/12/16 at 09:00; Stop 04/12/16 at 10:25 ; Status DC Piperacillin Sod/ Tazobactam Sod/ Sodium Chloride (Zosyn/Iv Sodium Chloride 0.9 % 50ml) 50 ml @ 100 mls/hr Q8HRS IV Last administered on 04/14/16 05:23; Start 04/12/16 at 14:00 Lidocaine/Sodium Bicarbonate (Buffered Lidocaine 1%) 3 ml 1X ONCE IJ Last administered on 04/12/16 12:45; Start 04/12/16 at 12:45; Stop 04/12/16 at 12:47 ; Status DC Heparin Sodium/ Sodium Chloride 60 unit 1X ONCE IV Last administered on 12:45; Start 04/12/16 at 12:45; Stop 04/12/16 at 12:47; Status DC Heparin Sodium (Porcine) 2,500 unit 1X ONCE INT CAT Last administered on 12:45; Start 04/12/16 at 12:45; Stop 04/12/16 at 12:47; Status DC Heparin Sodium (Porcine) 58061 unit 10,000 unit STK-MED ONCE .ROUTE ; Start 01/16 at 12:51; Stop 04/12/16 at 12:52; Status DC Sodium Chloride 1,000 ml @ 1,000 mls/hr Q1H PRN IV hypotension; Start 04/12/16 at 16:27; Stop 04/12/16 at 22:26; Status DC Albumin Human (Albuminar) 200 ml @ 200 mls/hr 1X PRN PRN IV Hypotension Last administered on 04/12/16 17:21; Start 04/12/16 at 16:30; Stop 04/12/16 at 22:29 ; Status DC Midodrine (Proamatine) 5 mg 1X ONCE PO ; Start 04/12/16 at 16:30; Stop at 16:34; Status DC Diphenhydramine HCl (Benadryl) 25 mg 1X PRN PRN IV ITCHING; Start 04/12/16 at 16:30; Stop 04/13/16 at 11:10; Status DC Diphenhydramine HCl (Benadryl) 25 mg 1X PRN PRN IV ITCHING; Start 04/12/16 at 16:30; Stop 04/13/16 at 11:10; Status DC Info 1 each 1 each PRN DAILY PRN MC SEE COMMENTS; Start 04/12/16 at 16:30; Status UNV Sodium Chloride 1,000 ml @ 15 mls/hr Q24H IV Last administered on 04/12/16 18 :14; Start 04/12/16 at 14:00 Sodium Chloride 250 ml @ 250 mls/hr 1X ONCE IV Last administered on 22:34; Start 04/12/16 at 22:30; Stop 04/12/16 at 23:29; Status DC Sodium Chloride 1,000 ml @ 75 mls/hr [id number] IV Last administered on 21:31; Start 04/13/16 at 09:30 Sodium Chloride 1,000 ml @ 1,000 mls/hr 1X ONCE IV Last administered on 10:10; Start 04/13/16 at 09:30; Stop 04/13/16 at 10:29; Status DC Amino Acids/ Glycerin/ Electrolytes 1,000 ml @ 80 mls/hr [id number] IV Last administered on 04/13/16 21:31; Start 04/13/16 at 10:00 Magnesium Sulfate/ Dextrose 50 ml @ 25 mls/hr 1X ONCE IV Last administered on 04/13/16 14:35; Start 04/13/16 at 15:00; Stop 04/13/16 at 16:59; Status DC Sodium Chloride (Iv Sodium Chloride 0.9% 1000ml Bag) 1,000 ml @ 1,000 mls/hr Q1H PRN IV hypotension; Start 04/14/16 at 08:13; Stop 04/14/16 at 14:12 Diphenhydramine HCl (Benadryl) 25 mg 1X PRN PRN IV ITCHING; Start 04/14/16 at 08:15; Stop 04/15/16 at 08:14 Diphenhydramine HCl (Benadryl) 25 mg 1X PRN PRN IV ITCHING; Start 04/14/16 at 08:15; Stop 04/15/16 at 08:14 Sodium Chloride (Normal Saline Flush) 10 ml 1X PRN PRN IV AP catheter pack; Start 04/14/16 at 08:15; Stop 04/15/16 at 08:14 Sodium Chloride 10 ml 10 ml 1X PRN PRN IV MATE FIRST catheter pack; Start 04/14/16 at 08:15; Stop 04/15/16 at 08:14 Sodium Chloride (Iv Sodium Chloride 0.9% 1000ml Bag) 1,000 ml @ 400 mls/hr Q2H30M PRN IV PATENCY; Start 04/14/16 at 08:13; Stop 04/14/16 at 20:12 Info (PHARMACY MONITORING -- do not chart) 1 each PRN DAILY PRN MC SEE COMMENTS ; Start 04/14/16 at 08:15; Stop 04/14/16 at 08:20; Status DC Darbepoetin Manuel 60 mcg 60 mcg [id number] SQ ; Start 04/14/16 at 21:00 Magnesium Sulfate/ Dextrose (Magnesium Sulfate PREMIX 2GM) 50 ml @ 25 mls/hr PRN DAILY PRN IV for Mag < 1.7 on am labs; Start 04/14/16 at 09:30 Metoprolol Tartrate (Lopressor) 2.5 mg Q6HRS IVP ; Start 04/14/16 at 11:30 Active Scripts Active Reported Chlorthalidone 25 Mg Tablet 1 Tab PO DAILY Magnesium (Magnesium Oxide) 250 Mg Tablet 250 Mg PO DAILY Glimepiride 4 Mg Tablet 1 Tab PO BID Proair Hfa Inhaler (Albuterol Sulfate) 8.5 Gm Hfa.aer.ad 1 Puff INH PRN Q6HRS PRN Chlorthalidone 25 Mg Tablet 1 Tab PO DAILY Lisinopril 5 Mg Tablet 1 Tab PO DAILY Crestor (Rosuvastatin Calcium) 20 Mg Tablet 1 Tab PO HS Gabapentin 300 Mg Capsule 300 Mg PO HS Multi Vitamin Daily (Multivitamin) 1 Each Tablet 1 Each PO DAILY Bumetanide 2 Mg Tablet 2 Mg PO DAILY Aspirin Ec (Aspirin) 81 Mg Tablet.dr 81 Mg PO DAILY Potassium Chloride 20 Meq Tab.er.prt 20 Meq PO DAILY Vitals/I & O Vital Sign - Last 24 Hours 04/13/16 04/13/16 04/13/16 04/13/16 14:00 15:00 16:00 16:00 Temp 98.3 98.3 Pulse 116 116 118 Resp 25 28 B/P 125/65 125/65 125/66 Pulse Ox 96 96 O2 Delivery Nasal Cannula Nasal Cannula Room Air Room Air O2 Flow Rate 2.0 2.0 04/13/16 04/13/16 04/13/16 04/13/16 17:00 18:00 19:00 19:39 Temp 98.3 98.3 Pulse 118 116 118 Resp 24 24 18 B/P 111/53 106/47 111/54 Pulse Ox 96 96 95 O2 Delivery Nasal Cannula Nasal Cannula Room Air Room Air O2 Flow Rate 2.0 2.0 04/13/16 04/13/16 04/13/16 04/13/16 20:00 20:00 21:00 22:00 Pulse 120 123 120 Resp 18 18 B/P 122/65 112/53 118/53 Pulse Ox 95 95 92 O2 Delivery Nasal Cannula Room Air Room Air Room Air O2 Flow Rate 2.0 04/13/16 04/13/16 04/14/16 04/14/16 23:00 23:59 00:00 01:00 Temp 99.0 99.0 Pulse 123 123 124 Resp 18 20 24 B/P 122/53 124/55 122/63 Pulse Ox 92 95 96 O2 Delivery Room Air Nasal Cannula Room Air Room Air O2 Flow Rate 2.0 04/14/16 04/14/16 04/14/16 04/14/16 02:00 02:24 03:00 04:00 Temp 98.5 98.5 Pulse 123 122 122 Resp 24 22 24 24 B/P 127/60 117/55 143/70 Pulse Ox 96 95 96 O2 Delivery Room Air Room Air Room Air Room Air 04/14/16 04/14/16 04/14/16 04/14/16 04:00 05:00 05:23 05:53 Pulse 122 Resp 24 30 22 B/P 124/55 Pulse Ox 95 O2 Delivery Nasal Cannula Room Air Room Air Room Air O2 Flow Rate 2.0 04/14/16 04/14/16 04/14/16 04/14/16 06:00 07:00 08:00 09:00 Temp 98.8 98.8 Pulse 119 124 121 114 Resp 24 30 26 28 B/P 112/50 117/52 119/55 123/48 Pulse Ox 95 96 95 96 O2 Delivery Room Air Room Air Room Air Room Air 04/14/16 10:00 Pulse 121 Resp 26 B/P 130/60 Pulse Ox 96 O2 Delivery Room Air Intake and Output 04/13/16 04/13/16 04/14/16 15:00 23:00 07:00 Intake Total 1050 ml 432 ml 1778 ml Output Total 25 ml 15 ml 37 ml Balance 1025 ml 417 ml 1741 ml LYNETTE MOSHER MD Apr 14, 2016 13:09
--- NOTE | 2016-04-14 15:15 | PDOC ---
PULMONARY PROGRESS NOTES Vitals Vital Signs Date Time Temp Pulse Resp B/P Pulse Ox O2 Delivery O2 Flow Rate FiO2 04/14/16 10:00 121 26 130/60 96 Room Air 04/14/16 08:00 98.8 98.8 04/14/16 04:00 2.0 Lungs: Other (bl coarse bs) Labs Laboratory Tests Test 04/12/16 17:22 04/13/16 06:34 04/13/16 12:00 04/13/16 13:10 Glucose (Fingerstick) 135mg/dL (70-99) 130mg/dL (70-99) White Blood Count 12.6x10^3/uL (4.0-11.0) Red Blood Count 2.90x10^6/uL (3.50-5.40) Hemoglobin 8.8g/dL (12.0-15.5) Hematocrit 26.6% (36.0-47.0) Mean Corpuscular Volume 92fL (79-100) Mean Corpuscular Hemoglobin 30pg (25-35) Mean Corpuscular Hemoglobin Concent 33g/dL (31-37) Red Cell Distribution Width 15.5% (11.5-14.5) Platelet Count 78x10^3/uL (140-400) Neutrophils (%) (Auto) 88% (31-73) Lymphocytes (%) (Auto) 5% (24-48) Monocytes (%) (Auto) 5% (0-9) Eosinophils (%) (Auto) 2% (0-3) Basophils (%) (Auto) 0% (0-3) Neutrophils # (Auto) 11.0x10^3uL (1.8-7.7) Lymphocytes # (Auto) 0.6x10^3/uL (1.0-4.8) Monocytes # (Auto) 0.6x10^3/uL (0.0-1.1) Eosinophils # (Auto) 0.3x10^3/uL (0.0-0.7) Basophils # (Auto) 0.0x10^3/uL (0.0-0.2) Sodium Level 137mmol/L (136-145) Potassium Level 4.8mmol/L (3.5-5.1) Chloride Level 98mmol/L (98-107) Carbon Dioxide Level 24mmol/L (21-32) Anion Gap 15 (6-14) Blood Urea Nitrogen 51mg/dL (7-20) Creatinine 3.6mg/dL (0.6-1.0) Estimated GFR (Cockcroft-Gault) 13.2 BUN/Creatinine Ratio 14 (6-20) Glucose Level 128mg/dL (70-99) Lactic Acid Level 3.5mmol/L (0.4-2.0) Calcium Level 7.9mg/dL (8.5-10.1) Magnesium Level 1.6mg/dL (1.8-2.4) Total Bilirubin 2.9mg/dL (0.2-1.0) Aspartate Amino Transf (AST/SGOT) 4108U/L (15-37) Alanine Aminotransferase (ALT/SGPT) 3620U/L (14-59) Alkaline Phosphatase 57U/L (46-116) Lactate Dehydrogenase 2970U/L (81-234) Total Protein 6.0g/dL (6.4-8.2) Albumin 2.9g/dL (3.4-5.0) Albumin/Globulin Ratio 0.9 (1.0-1.7) Acetaminophen Level < 2.0mcg/ml (10-30) Acetaminophen Last Dose Date Unknown Acetaminophen Last Dose Time Unknown Fibrinogen 526mg/dL (200-440) Test 04/13/16 17:00 04/14/16 05:30 04/14/16 08:21 04/14/16 09:00 Glucose (Fingerstick) 158mg/dL (70-99) 156mg/dL (70-99) Prothrombin Time 24.3SEC (11.7-14.0) Prothromb Time International Ratio 2.3 (0.8-1.1) Creatine Kinase 406U/L (26-192) Sodium Level 139mmol/L (136-145) Potassium Level 3.9mmol/L (3.5-5.1) Chloride Level 100mmol/L (98-107) Carbon Dioxide Level 25mmol/L (21-32) Anion Gap 14 (6-14) Blood Urea Nitrogen 51mg/dL (7-20) Creatinine 3.7mg/dL (0.6-1.0) Estimated GFR (Cockcroft-Gault) 12.8 BUN/Creatinine Ratio 14 (6-20) Glucose Level 143mg/dL (70-99) Calcium Level 8.0mg/dL (8.5-10.1) Magnesium Level 2.1mg/dL (1.8-2.4) Total Bilirubin 3.5mg/dL (0.2-1.0) Aspartate Amino Transf (AST/SGOT) 2235U/L (15-37) Alanine Aminotransferase (ALT/SGPT) 2934U/L (14-59) Alkaline Phosphatase 91U/L (46-116) Total Protein 5.8g/dL (6.4-8.2) Albumin 2.2g/dL (3.4-5.0) Albumin/Globulin Ratio 0.6 (1.0-1.7) Test 04/14/16 10:00 04/14/16 11:29 Lactic Acid Level 1.4mmol/L (0.4-2.0) Glucose (Fingerstick) 110mg/dL (70-99) Laboratory Tests Test 04/13/16 17:00 04/14/16 05:30 04/14/16 08:21 04/14/16 09:00 Glucose (Fingerstick) 158mg/dL (70-99) 156mg/dL (70-99) Prothrombin Time 24.3SEC (11.7-14.0) Prothromb Time International Ratio 2.3 (0.8-1.1) Creatine Kinase 406U/L (26-192) Sodium Level 139mmol/L (136-145) Potassium Level 3.9mmol/L (3.5-5.1) Chloride Level 100mmol/L (98-107) Carbon Dioxide Level 25mmol/L (21-32) Anion Gap 14 (6-14) Blood Urea Nitrogen 51mg/dL (7-20) Creatinine 3.7mg/dL (0.6-1.0) Estimated GFR (Cockcroft-Gault) 12.8 BUN/Creatinine Ratio 14 (6-20) Glucose Level 143mg/dL (70-99) Calcium Level 8.0mg/dL (8.5-10.1) Magnesium Level 2.1mg/dL (1.8-2.4) Total Bilirubin 3.5mg/dL (0.2-1.0) Aspartate Amino Transf (AST/SGOT) 2235U/L (15-37) Alanine Aminotransferase (ALT/SGPT) 2934U/L (14-59) Alkaline Phosphatase 91U/L (46-116) Total Protein 5.8g/dL (6.4-8.2) Albumin 2.2g/dL (3.4-5.0) Albumin/Globulin Ratio 0.6 (1.0-1.7) Test 04/14/16 10:00 04/14/16 11:29 Lactic Acid Level 1.4mmol/L (0.4-2.0) Glucose (Fingerstick) 110mg/dL (70-99) Medications Active Scripts Medications Dose Route/Sig Days Date Category Chlorthalidone 25 Mg Tablet 1 Tab PO DAILY 04/12/16 Reported Magnesium (Magnesium Oxide) 250 Mg Tablet 250 Mg PO DAILY 04/12/16 Reported Glimepiride 4 Mg Tablet 1 Tab PO BID 04/12/16 Reported Proair Hfa Inhaler (Albuterol Sulfate) 8.5 Gm Hfa.aer.ad 1 Puff INH PRN Q6HRS PRN 04/12/16 Reported Chlorthalidone 25 Mg Tablet 1 Tab PO DAILY 04/12/16 Reported Lisinopril 5 Mg Tablet 1 Tab PO DAILY 04/12/16 Reported Crestor (Rosuvastatin Calcium) 20 Mg Tablet 1 Tab PO HS 04/12/16 Reported Gabapentin 300 Mg Capsule 300 Mg PO HS 04/12/16 Reported Multi Vitamin Daily (Multivitamin) 1 Each Tablet 1 Each PO DAILY 03/18/13 Reported Bumetanide 2 Mg Tablet 2 Mg PO DAILY 03/18/13 Reported Aspirin Ec (Aspirin) 81 Mg Tablet.dr 81 Mg PO DAILY 03/18/13 Reported Potassium Chloride 20 Meq Tab.er.prt 20 Meq PO DAILY 03/18/13 Reported Impression . FULL NOTE DICTATED THANKS PRN BIPAP REPEAT CXR ALLAN ROSALES MD Apr 14, 2016 15:15
--- NOTE | 2016-04-14 15:54 | PDOC2 ---
NEUROLOGY CONSULT Date of Admission Date of Admission DATE: 04/14/16 TIME: 15:43 Reason for Consult Reason for Consult: altered mental status Referring Physician Referring Physician: Dr. Barrera Source Source: Caregiver, Chart review History of Present Illness History of Present Illness The patient is a 55-year-old right-handed female admitted 2 days ago with altered mental status, found to have evidence of sepsis, renal failure, liver failure, respiratory failure, and chronic cardiac failure. According to the daughter there is no previous history of stroke, seizure, or head injury. The patient does have diabetic neuropathy. No seizure activity has been observed here. Past Medical History Cardiovascular: CAD, CHF, HTN, Hyperlipidemia Pulmonary: COPD, Other (sleep apnea) CENTRAL NERVOUS SYSTEM: Periperal neuropathy GI: GERD, Other (Hughes's esophagus) Hepatobiliary: Other (elevated liver function tests) Psych: Depression Musculoskeletal: low back pain, Osteoarthritis ENT: Other (glaucoma, retinopathy) Renal/: Acute renal failure (solitary kidney, right kidney was previously working at "50%"), UTI Endocrine: Diabetes Dermatology: Cellulitis (panniculitis), Other Past Surgical History Past Surgical History: Pacemaker (and defibrillator), Cataract Removal, Other ( nephrectomy right hip I and D) Family History Family History: Cancer Social History Social History Quit smoking and alcohol use. Unemployed. Current Medications Current Medications Current Medications Acetaminophen (Tylenol) 650 mg PRN Q6HRS PRN PO Headaches, Temp > 101.5'; Start 04/12/16 at 02:30 Ondansetron HCl (Zofran) 4 mg PRN Q6HRS PRN IV NAUSEA/VOMITING; Start 04/12/16 at 02:30 Famotidine (Pepcid) 20 mg BID IVP Last administered on 04/14/16 11:21; Start 04/12/16 at 09:00 Info 1 ea DAILY MC ; Start 04/12/16 at 09:00 Fentanyl Citrate (Fentanyl 2ml Vial) 25 mcg PRN Q1HR PRN IV COMM Last administered on 04/13/16 00:27; Start 04/12/16 at 02:30 Fentanyl Citrate 50 mcg 50 mcg PRN Q1HR PRN IV COMM Last administered on 05:23; Start 04/12/16 at 02:30 Norepinephrine Bitartrate/Sodium Chloride (Levophed Vial/ Iv Sodium Chloride 0.9 % 250ml) 258 ml @ 0 mls/hr CONT PRN IV SEE I/O RECORD Last administered on 04/13 02:55; Start 04/12/16 at 02:30 Haloperidol Lactate (Haldol) 5 mg PRN Q6HRS PRN IVP AGITATION Last administered on 04/14/16 11:21; Start 04/12/16 at 02:30 Acetaminophen (Tylenol) 650 mg PRN Q6HRS PRN FL MILD PAIN / TEMP Last administered on 04/12/16 03:36; Start 04/12/16 at 03:30 Nystatin (Nystop) 1 gabrielle BID TP Last administered on 04/14/16 09:00; Start 01/16 at 03:30 Insulin Aspart (Novolog) 0-9 UNITS TIDWMEALS SQ Last administered on 04/13/16 17:06; Start 04/12/16 at 08:00 Dextrose 12.5 gm PRN Q15MIN PRN IV SEE COMMENTS; Start 04/12/16 at 04:00 Info 1 each 1 each PRN DAILY PRN MC SEE COMMENTS; Start 04/12/16 at 06:30 Piperacillin Sod/ Tazobactam Sod 3.375 gm/Sodium Chloride 50 ml @ 100 mls/hr Q8HRS IV ; Start 04/12/16 at 14:00; Stop 04/12/16 at 14:00; Status DC Levofloxacin/ Dextrose 100 ml @ 100 mls/hr 1X ONCE IV Last administered on 08:48; Start 04/12/16 at 08:00; Stop 04/12/16 at 08:59; Status DC Ceftriaxone Sodium 1 gm/ Sodium Chloride 50 ml @ 100 mls/hr Q24H IV Last administered on 04/12/16 08:48; Start 04/12/16 at 09:00; Stop 04/12/16 at 10:25 ; Status DC Piperacillin Sod/ Tazobactam Sod/ Sodium Chloride (Zosyn/Iv Sodium Chloride 0.9 % 50ml) 50 ml @ 100 mls/hr Q8HRS IV Last administered on 04/14/16 05:23; Start 04/12/16 at 14:00 Lidocaine/Sodium Bicarbonate (Buffered Lidocaine 1%) 3 ml 1X ONCE IJ Last administered on 04/12/16 12:45; Start 04/12/16 at 12:45; Stop 04/12/16 at 12:47 ; Status DC Heparin Sodium/ Sodium Chloride 60 unit 1X ONCE IV Last administered on 12:45; Start 04/12/16 at 12:45; Stop 04/12/16 at 12:47; Status DC Heparin Sodium (Porcine) 2,500 unit 1X ONCE INT CAT Last administered on 12:45; Start 04/12/16 at 12:45; Stop 04/12/16 at 12:47; Status DC Heparin Sodium (Porcine) 64098 unit 10,000 unit STK-MED ONCE .ROUTE ; Start 01/16 at 12:51; Stop 04/12/16 at 12:52; Status DC Sodium Chloride 1,000 ml @ 1,000 mls/hr Q1H PRN IV hypotension; Start 04/12/16 at 16:27; Stop 04/12/16 at 22:26; Status DC Albumin Human (Albuminar) 200 ml @ 200 mls/hr 1X PRN PRN IV Hypotension Last administered on 04/12/16 17:21; Start 04/12/16 at 16:30; Stop 04/12/16 at 22:29 ; Status DC Midodrine (Proamatine) 5 mg 1X ONCE PO ; Start 04/12/16 at 16:30; Stop at 16:34; Status DC Diphenhydramine HCl (Benadryl) 25 mg 1X PRN PRN IV ITCHING; Start 04/12/16 at 16:30; Stop 04/13/16 at 11:10; Status DC Diphenhydramine HCl (Benadryl) 25 mg 1X PRN PRN IV ITCHING; Start 04/12/16 at 16:30; Stop 04/13/16 at 11:10; Status DC Info 1 each 1 each PRN DAILY PRN MC SEE COMMENTS; Start 04/12/16 at 16:30; Status UNV Sodium Chloride 1,000 ml @ 15 mls/hr Q24H IV Last administered on 04/12/16 18 :14; Start 04/12/16 at 14:00; Stop 04/14/16 at 13:11; Status DC Sodium Chloride 250 ml @ 250 mls/hr 1X ONCE IV Last administered on 22:34; Start 04/12/16 at 22:30; Stop 04/12/16 at 23:29; Status DC Sodium Chloride 1,000 ml @ 75 mls/hr [id number] IV Last administered on 21:31; Start 04/13/16 at 09:30; Stop 04/14/16 at 13:11; Status DC Sodium Chloride 1,000 ml @ 1,000 mls/hr 1X ONCE IV Last administered on 10:10; Start 04/13/16 at 09:30; Stop 04/13/16 at 10:29; Status DC Amino Acids/ Glycerin/ Electrolytes 1,000 ml @ 80 mls/hr [id number] IV Last administered on 04/13/16 21:31; Start 04/13/16 at 10:00 Magnesium Sulfate/ Dextrose 50 ml @ 25 mls/hr 1X ONCE IV Last administered on 04/13/16 14:35; Start 04/13/16 at 15:00; Stop 04/13/16 at 16:59; Status DC Sodium Chloride (Iv Sodium Chloride 0.9% 1000ml Bag) 1,000 ml @ 1,000 mls/hr Q1H PRN IV hypotension; Start 04/14/16 at 08:13; Stop 04/14/16 at 14:12; Status DC Diphenhydramine HCl (Benadryl) 25 mg 1X PRN PRN IV ITCHING; Start 04/14/16 at 08:15; Stop 04/15/16 at 08:14 Diphenhydramine HCl (Benadryl) 25 mg 1X PRN PRN IV ITCHING; Start 04/14/16 at 08:15; Stop 04/15/16 at 08:14 Sodium Chloride (Normal Saline Flush) 10 ml 1X PRN PRN IV AP catheter pack; Start 04/14/16 at 08:15; Stop 04/15/16 at 08:14 Sodium Chloride 10 ml 10 ml 1X PRN PRN IV TRIP FOLLOWER catheter pack; Start 04/14/16 at 08:15; Stop 04/15/16 at 08:14 Sodium Chloride (Iv Sodium Chloride 0.9% 1000ml Bag) 1,000 ml @ 400 mls/hr Q2H30M PRN IV PATENCY; Start 04/14/16 at 08:13; Stop 04/14/16 at 20:12 Info (PHARMACY MONITORING -- do not chart) 1 each PRN DAILY PRN MC SEE COMMENTS ; Start 04/14/16 at 08:15; Stop 04/14/16 at 08:20; Status DC Darbepoetin Manuel 60 mcg 60 mcg [id number] SQ ; Start 04/14/16 at 21:00 Magnesium Sulfate/ Dextrose (Magnesium Sulfate PREMIX 2GM) 50 ml @ 25 mls/hr PRN DAILY PRN IV for Mag < 1.7 on am labs; Start 04/14/16 at 09:30 Metoprolol Tartrate (Lopressor) 2.5 mg Q6HRS IVP ; Start 04/14/16 at 11:30 Active Scripts Active Reported Chlorthalidone 25 Mg Tablet 1 Tab PO DAILY Magnesium (Magnesium Oxide) 250 Mg Tablet 250 Mg PO DAILY Glimepiride 4 Mg Tablet 1 Tab PO BID Proair Hfa Inhaler (Albuterol Sulfate) 8.5 Gm Hfa.aer.ad 1 Puff INH PRN Q6HRS PRN Chlorthalidone 25 Mg Tablet 1 Tab PO DAILY Lisinopril 5 Mg Tablet 1 Tab PO DAILY Crestor (Rosuvastatin Calcium) 20 Mg Tablet 1 Tab PO HS Gabapentin 300 Mg Capsule 300 Mg PO HS Multi Vitamin Daily (Multivitamin) 1 Each Tablet 1 Each PO DAILY Bumetanide 2 Mg Tablet 2 Mg PO DAILY Aspirin Ec (Aspirin) 81 Mg Tablet.dr 81 Mg PO DAILY Potassium Chloride 20 Meq Tab.er.prt 20 Meq PO DAILY Allergies Allergies: Coded Allergies: sulfamethoxazole (Verified Allergy, Severe, Hives, 03/18/13) trimethoprim (Verified Allergy, Severe, Hives, 03/18/13) venom-honey bee (Verified Allergy, Severe, Anaphylaxis, 03/18/13) ROS Review of System Patient's daughter denies fevers, chills, weight loss, dyspnea, angina, abdominal pain, change in bowels, or dysuria. 14 point review of systems is negative. Physical Exam Physical Examination PHYSICAL EXAMINATION: Vital signs: see above. General appearance is normal and in no acute distress. HEENT: Normocephalic and nontraumatic. Eyes, nose, ears, and throat are unremarkable. Neck is supple. No lymphadenopathy. No bruits are heard over the carotid artery. No crepitus. She opens her eyes to voice. She moans. She does not follow commands. Cranial nerve examination reveals full visual bowling to threat, equally reactive pupils , and intact extraocular movements. There is no facial symmetry. Reflexes are 1 + with flexor plantar responses. She moves all 4 extremities. She has mittens on the upper extremities. She does not cooperate with cerebellar or sensory testing. Vitals VITALS Vital Signs Date Time Temp Pulse Resp B/P Pulse Ox O2 Delivery O2 Flow Rate FiO2 04/14/16 10:00 121 26 130/60 96 Room Air 04/14/16 08:00 98.8 98.8 04/14/16 04:00 2.0 Labs Labs Laboratory Tests Test 04/12/16 17:22 04/13/16 06:34 04/13/16 12:00 04/13/16 13:10 Glucose (Fingerstick) 135mg/dL (70-99) 130mg/dL (70-99) White Blood Count 12.6x10^3/uL (4.0-11.0) Red Blood Count 2.90x10^6/uL (3.50-5.40) Hemoglobin 8.8g/dL (12.0-15.5) Hematocrit 26.6% (36.0-47.0) Mean Corpuscular Volume 92fL (79-100) Mean Corpuscular Hemoglobin 30pg (25-35) Mean Corpuscular Hemoglobin Concent 33g/dL (31-37) Red Cell Distribution Width 15.5% (11.5-14.5) Platelet Count 78x10^3/uL (140-400) Neutrophils (%) (Auto) 88% (31-73) Lymphocytes (%) (Auto) 5% (24-48) Monocytes (%) (Auto) 5% (0-9) Eosinophils (%) (Auto) 2% (0-3) Basophils (%) (Auto) 0% (0-3) Neutrophils # (Auto) 11.0x10^3uL (1.8-7.7) Lymphocytes # (Auto) 0.6x10^3/uL (1.0-4.8) Monocytes # (Auto) 0.6x10^3/uL (0.0-1.1) Eosinophils # (Auto) 0.3x10^3/uL (0.0-0.7) Basophils # (Auto) 0.0x10^3/uL (0.0-0.2) Sodium Level 137mmol/L (136-145) Potassium Level 4.8mmol/L (3.5-5.1) Chloride Level 98mmol/L (98-107) Carbon Dioxide Level 24mmol/L (21-32) Anion Gap 15 (6-14) Blood Urea Nitrogen 51mg/dL (7-20) Creatinine 3.6mg/dL (0.6-1.0) Estimated GFR (Cockcroft-Gault) 13.2 BUN/Creatinine Ratio 14 (6-20) Glucose Level 128mg/dL (70-99) Lactic Acid Level 3.5mmol/L (0.4-2.0) Calcium Level 7.9mg/dL (8.5-10.1) Magnesium Level 1.6mg/dL (1.8-2.4) Total Bilirubin 2.9mg/dL (0.2-1.0) Aspartate Amino Transf (AST/SGOT) 4108U/L (15-37) Alanine Aminotransferase (ALT/SGPT) 3620U/L (14-59) Alkaline Phosphatase 57U/L (46-116) Lactate Dehydrogenase 2970U/L (81-234) Total Protein 6.0g/dL (6.4-8.2) Albumin 2.9g/dL (3.4-5.0) Albumin/Globulin Ratio 0.9 (1.0-1.7) Acetaminophen Level < 2.0mcg/ml (10-30) Acetaminophen Last Dose Date Unknown Acetaminophen Last Dose Time Unknown Fibrinogen 526mg/dL (200-440) Test 04/13/16 17:00 04/14/16 05:30 04/14/16 08:21 04/14/16 09:00 Glucose (Fingerstick) 158mg/dL (70-99) 156mg/dL (70-99) Prothrombin Time 24.3SEC (11.7-14.0) Prothromb Time International Ratio 2.3 (0.8-1.1) Creatine Kinase 406U/L (26-192) Sodium Level 139mmol/L (136-145) Potassium Level 3.9mmol/L (3.5-5.1) Chloride Level 100mmol/L (98-107) Carbon Dioxide Level 25mmol/L (21-32) Anion Gap 14 (6-14) Blood Urea Nitrogen 51mg/dL (7-20) Creatinine 3.7mg/dL (0.6-1.0) Estimated GFR (Cockcroft-Gault) 12.8 BUN/Creatinine Ratio 14 (6-20) Glucose Level 143mg/dL (70-99) Calcium Level 8.0mg/dL (8.5-10.1) Magnesium Level 2.1mg/dL (1.8-2.4) Total Bilirubin 3.5mg/dL (0.2-1.0) Aspartate Amino Transf (AST/SGOT) 2235U/L (15-37) Alanine Aminotransferase (ALT/SGPT) 2934U/L (14-59) Alkaline Phosphatase 91U/L (46-116) Total Protein 5.8g/dL (6.4-8.2) Albumin 2.2g/dL (3.4-5.0) Albumin/Globulin Ratio 0.6 (1.0-1.7) Test 04/14/16 10:00 04/14/16 11:29 Lactic Acid Level 1.4mmol/L (0.4-2.0) Glucose (Fingerstick) 110mg/dL (70-99) Laboratory Tests Test 04/13/16 17:00 04/14/16 05:30 04/14/16 08:21 04/14/16 09:00 Glucose (Fingerstick) 158mg/dL (70-99) 156mg/dL (70-99) Prothrombin Time 24.3SEC (11.7-14.0) Prothromb Time International Ratio 2.3 (0.8-1.1) Creatine Kinase 406U/L (26-192) Sodium Level 139mmol/L (136-145) Potassium Level 3.9mmol/L (3.5-5.1) Chloride Level 100mmol/L (98-107) Carbon Dioxide Level 25mmol/L (21-32) Anion Gap 14 (6-14) Blood Urea Nitrogen 51mg/dL (7-20) Creatinine 3.7mg/dL (0.6-1.0) Estimated GFR (Cockcroft-Gault) 12.8 BUN/Creatinine Ratio 14 (6-20) Glucose Level 143mg/dL (70-99) Calcium Level 8.0mg/dL (8.5-10.1) Magnesium Level 2.1mg/dL (1.8-2.4) Total Bilirubin 3.5mg/dL (0.2-1.0) Aspartate Amino Transf (AST/SGOT) 2235U/L (15-37) Alanine Aminotransferase (ALT/SGPT) 2934U/L (14-59) Alkaline Phosphatase 91U/L (46-116) Total Protein 5.8g/dL (6.4-8.2) Albumin 2.2g/dL (3.4-5.0) Albumin/Globulin Ratio 0.6 (1.0-1.7) Test 04/14/16 10:00 04/14/16 11:29 Lactic Acid Level 1.4mmol/L (0.4-2.0) Glucose (Fingerstick) 110mg/dL (70-99) Images Images CT head yesterday: There is no evidence of an acute intracranial abnormality. If there is suspicion for evolving or acute ischemia, follow-up CT or MRI may be beneficial. There is mild supratentorial involutional change. Assessment/Plan Assessment/Plan Impression: Metabolic encephalopathy, multiple medical problems as listed above, no evidence of intrinsic brain problem such as stroke, seizure activity, or intracranial infection. Recommendations: Hold off on additional neurological studies such as lumbar puncture. 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 Of course, treat medical diseases. I discussed my findings with the patient's daughter. Thank you for letting me help with the patient's care. CONNER WALTON MD Apr 14, 2016 15:54
--- NOTE | 2016-04-14 16:33 | RAD ---
INDICATION: hypoxemia COMPARISON: 04/13/2016 FINDINGS: Single view of chest obtained. There are 2 right-sided central venous catheters again seen with tip near atriocaval junction. Pacemaker again seen. Enlarged cardiac silhouette. Mild prominence of interstitial markings IMPRESSION: Lines and tubes as above. Mild prominence of interstitial markings. Could be from vascular crowding or mild pulmonary vascular congestion.
--- NOTE | 2016-04-14 16:57 | RAD ---
INDICATION: placement of tube/ COMPARISON: None. IMPRESSION: Single frontal view of abdomen. Enteric tube seen coursing below the diaphragm with tip likely in the stomach. Right-sided central venous catheters are partially seen with tip likely near atrial caval junction. Enlarged cardiac silhouette. Air-filled distended loops of bowel in the upper abdomen in a nonspecific pattern
[2016-04-14] MEDS: AA 3%/ELECTROLYTE-TPN SOLN/GLY 1,000 ML IV SCH (17:50)
[2016-04-14] MEDS: ACETAMINOPHEN 650 MG SUPP.RECT. PR PRN (19:58)
[2016-04-14] MEDS ORDERED: DARBEPOETIN ALFA 60 MCG/0.3 ML DISP.SYRIN. SQ SCH (21:00)
[2016-04-14 23:13] LABS: HEP A IGM ABDY Negative (Negative)
[2016-04-15] VITALS (23 sets, daily range): BP systolic 96–137; BP diastolic 44–88
--- NOTE | 2016-04-15 05:19 | CONS ---
DATE OF CONSULTATION: 04/14/2016 ATTENDING PHYSICIAN: Dr. Sepulveda. REASON FOR CONSULTATION: The patient is seen in pulmonary consultation at the request of Dr. Sepulveda for wheezing and hypoxemia. HISTORY OF PRESENT ILLNESS: The patient is a 55-year-old female, unable to provide any history. She is encephalopathic. She presented on 04/12/2016 with sepsis and hypotension. She has been seen by the Infectious Disease Service, is currently on broad spectrum antibiotics. She also had acute on chronic renal failure and has had two runs of hemodialysis. This morning, she was noted to be slightly more short of breath, more tachypneic, dyspneic and wheezing. Dr. Sepulveda asked for my evaluation. She had a chest x-ray several days ago, which revealed some mild infiltrate. She has not had an x-ray in the last day. She had a CT head that revealed no evidence of acute intracranial abnormalities. PAST MEDICAL HISTORY: Otherwise remarkable for cardiomyopathy with status post ICD placement, chronic kidney disease, hypertension, obesity, hyperlipidemia, obstructive sleep apnea. FAMILY HISTORY: Unknown. PERSONAL HISTORY: Unknown. ALLERGIES: LISTED TO BACTRIM. REVIEW OF SYSTEMS: Unobtainable secondary to the patient's condition. PHYSICAL EXAMINATION: GENERAL: The patient was in the intensive care unit receiving pressors, oxygen supplementation. VITAL SIGNS: T-max in the last 24 hours is well over 100. HEENT: Eyes, the sclerae were nonicteric. NECK: Jugular venous distention could not be assessed secondary to body habitus. CHEST: Full expansion. LUNGS: Adequate airway flow, no wheezes. CARDIOVASCULAR: Regular rate and rhythm with S1, S2, no S3. ABDOMEN: Soft, nontender, nondistended. EXTREMITIES: No clubbing, cyanosis. Minimal edema. NEUROLOGIC: The patient was responsive to painful stimuli, not following any commands. LABORATORY DATA: Reviewed. White count 13,000, hemoglobin and hematocrit were noted. INR was 2.3. Electrolytes were noted. BUN is elevated. Creatinine is elevated. AST and ALT were elevated. Albumin upon admission was low at 2.5. Lactic acid level was elevated. Electrolytes were in the range. Influenza screen was negative. Acetaminophen level was negative. IMPRESSION: 1. Acute respiratory failure secondary to sepsis. 2. Septic shock. 3. ____ 4. Toxic metabolic encephalopathy. 5. Acute on chronic renal failure. 6. Thrombocytopenia. 7. Elevated liver chemistries secondary to sepsis. 8. Non-ST segment elevation myocardial infarction. 9. Multiorgan failure secondary to sepsis. PLAN 1. From a pulmonary standpoint of view we will proceed with nebulized treatments. 2. P.r.n. BiPAP. 3. Oxygen supplementation. 4. Consult Neurology. 5. Initiate nutritional support with Dobhoff and tube feeding. I do appreciate the privilege in sharing in the patient's care. ALLAN WAHL MD DR: BELEN/jenna JOB#: [id number] / [id number]
[2016-04-15] MEDS: AA 3%/ELECTROLYTE-TPN SOLN/GLY 1,000 ML IV SCH ×2 (05:48→12:17)
[2016-04-15] MEDS: METOPROLOL TARTRATE 5 MG/5 ML VIAL. IVP SCH ×3 (05:49→17:35)
[2016-04-15] MEDS: PIPERACILLIN/TAZOBACTAM 2.25 GM in IV NORMAL SALINE 50ML 50 ML IV SCH ×3 (05:49→21:35)
[2016-04-15 06:54] LABS: BASO # 0.1 x10^3/uL (0.0-0.2); BASO % 0 % (0-3); EOS % 2 % (0-3); HEMATOCRIT 25.8 % (36.0-47.0); HEMOGLOBIN 8.3 g/dL (12.0-15.5); LYMPH # 1.2 x10^3/uL (1.0-4.8); LYMPH % 9 % (24-48); MEAN CORPUSCULAR HEMOGLOBIN 30 pg (25-35); MEAN CORPUSCULAR HGB CONC 32 g/dL (31-37); MEAN CORPUSCULAR VOLUME 93 fL (79-100); MONO % 6 % (0-9); NEUT % 83 % (31-73); PLATELET COUNT 71 x10^3/uL (140-400); RED BLOOD COUNT 2.77 x10^6/uL (3.50-5.40); RED CELL DISTRIBUTION WIDTH 15.9 % (11.5-14.5); WHITE BLOOD COUNT 13.9 x10^3/uL (4.0-11.0)
[2016-04-15 07:07] LABS: INR 2.1 (0.8-1.1); PROTHROMBIN TIME PATIENT 22.5 SEC (11.7-14.0)
[2016-04-15 07:12] LABS: CALCIUM 7.9 mg/dL (8.5-10.1); CREATININE 3.6 mg/dL (0.6-1.0); GFR 13.2; PHOSPHORUS 3.5 mg/dL (2.6-4.7); POTASSIUM 4.4 mmol/L (3.5-5.1)
[2016-04-15] MEDS ORDERED: IV NORMAL SALINE 1000ML BAG 1,000 ML IV PRN ×2 (07:30)
[2016-04-15] MEDS: INSULIN ASPART 300 UNITS/3 ML INSULN.PEN SQ SCH ×3 (08:00→17:00)
--- NOTE | 2016-04-15 08:10 | PDOC ---
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 Vital Signs: Vital Signs Date Time Temp Pulse Resp B/P Pulse Ox O2 Delivery O2 Flow Rate FiO2 04/15/16 06:00 106 25 118/62 97 Room Air 04/15/16 04:00 98.3 2.0 98.3 Labs: Laboratory Tests Test 04/14/16 08:21 04/14/16 09:00 04/14/16 10:00 04/14/16 11:29 Glucose (Fingerstick) 156mg/dL 110mg/dL Sodium Level 139mmol/L Potassium Level 3.9mmol/L Chloride Level 100mmol/L Carbon Dioxide Level 25mmol/L Anion Gap 14 Blood Urea Nitrogen 51mg/dL Creatinine 3.7mg/dL Estimated GFR (Cockcroft-Gault) 12.8 BUN/Creatinine Ratio 14 Glucose Level 143mg/dL Calcium Level 8.0mg/dL Magnesium Level 2.1mg/dL Total Bilirubin 3.5mg/dL Aspartate Amino Transf (AST/SGOT) 2235U/L Alanine Aminotransferase (ALT/SGPT) 2934U/L Alkaline Phosphatase 91U/L Total Protein 5.8g/dL Albumin 2.2g/dL Albumin/Globulin Ratio 0.6 Lactic Acid Level 1.4mmol/L Test 04/14/16 18:02 04/14/16 22:32 04/15/16 06:20 Glucose (Fingerstick) 122mg/dL 125mg/dL White Blood Count 13.9x10^3/uL Red Blood Count 2.77x10^6/uL Hemoglobin 8.3g/dL Hematocrit 25.8% Mean Corpuscular Volume 93fL Mean Corpuscular Hemoglobin 30pg Mean Corpuscular Hemoglobin Concent 32g/dL Red Cell Distribution Width 15.9% Platelet Count 71x10^3/uL Neutrophils (%) (Auto) 83% Lymphocytes (%) (Auto) 9% Monocytes (%) (Auto) 6% Eosinophils (%) (Auto) 2% Basophils (%) (Auto) 0% Neutrophils # (Auto) 11.5x10^3uL Lymphocytes # (Auto) 1.2x10^3/uL Monocytes # (Auto) 0.8x10^3/uL Eosinophils # (Auto) 0.3x10^3/uL Basophils # (Auto) 0.1x10^3/uL Prothrombin Time 22.5SEC Prothromb Time International Ratio 2.1 Sodium Level 139mmol/L Potassium Level 4.4mmol/L Chloride Level 101mmol/L Carbon Dioxide Level 26mmol/L Anion Gap 12 Blood Urea Nitrogen 40mg/dL Creatinine 3.6mg/dL Estimated GFR (Cockcroft-Gault) 13.2 Glucose Level 148mg/dL Calcium Level 7.9mg/dL Phosphorus Level 3.5mg/dL Magnesium Level 2.0mg/dL Creatine Kinase 240U/L Albumin 2.0g/dL PE: GEN: NAD LUNGS: decreased anteriorly HEART: tachycardic ABD: obese, BS quiet, soft NEURO/PSYCH: did not awaken during exam but moaned and coughed A/P: Elevated LFTs -w/ septic shock, AMS -yesterday: bili worse (3.5), AST/ALT some improvement (2235, 2934) - hepatic panel pending this a.m. -Hepatitis panel neg, acetaminophen < 2 Anemia, thrombocytopenia, CKD, NSTEMI -- Await recheck of LFTs. HANS CHASE Apr 15, 2016 08:10
[2016-04-15 08:33] LABS: DIRECT BILIRUBIN 2.9 mg/dL (0.0-0.2); TOTAL BILIRUBIN 4.2 mg/dL (0.2-1.0); TOTAL PROTEIN 5.5 g/dL (6.4-8.2)
[2016-04-15] MEDS: FAMOTIDINE 20 MG/2 ML VIAL IVP SCH (08:46)
[2016-04-15] MEDS: NYSTATIN TOPICAL POWDER 15GM BOTTLE. TP SCH ×2 (09:00→21:34)
[2016-04-15] MEDS: ELECTROLYTE (ICU) PROTOCOL. MC SCH (09:00)
[2016-04-15] MEDS ORDERED: DIALYSIS PATIENT. MC PRN (09:15)
--- NOTE | 2016-04-15 09:48 | PDOC ---
Dialysis Progress Note Dialysis Note Dialysis Note Seen on Hemodialysis, tolerating treatment Okay so far Vitals on Hemodialysis: 113/75 119 General Appearance: Asleep No t fully arousable Neck: No JVD or JVP Chest: CTA Tod Heart: S1 S2 Abdomen - Soft ND Min TTP Extremities - No Edema ARF/ ATN + CKD IV ( at baseline) : (Probably ESRD) Dialysis as below F 180 NR 3.5 Hrs 3 K 2.5 Ca 140 Na 35 HC03 Qb 350 + Qd 500+ Heparin 0 Units Uf 1-2 Kgs or to dry weight as tolerated May give 25-50 gms of 25% Albumin if needed to maintain Hemodynamic stability Treatment plan reviewed and discussed with airplane fueler Vitals Vital Signs Vital Signs Date Time Temp Pulse Resp B/P Pulse Ox O2 Delivery O2 Flow Rate FiO2 04/15/16 06:00 106 25 118/62 97 Room Air 04/15/16 04:00 98.3 2.0 98.3 Labs Last Labs Laboratory Tests Test 04/13/16 12:00 04/13/16 13:10 04/13/16 17:00 04/14/16 02:40 Fibrinogen 526mg/dL (200-440) Glucose (Fingerstick) 130mg/dL (70-99) 158mg/dL (70-99) Nasal Screen MRSA (PCR) Positive (Negative) Test 04/14/16 05:30 04/14/16 08:21 04/14/16 09:00 04/14/16 10:00 Prothrombin Time 24.3SEC (11.7-14.0) Prothromb Time International Ratio 2.3 (0.8-1.1) Creatine Kinase 406U/L (26-192) Glucose (Fingerstick) 156mg/dL (70-99) Sodium Level 139mmol/L (136-145) Potassium Level 3.9mmol/L (3.5-5.1) Chloride Level 100mmol/L (98-107) Carbon Dioxide Level 25mmol/L (21-32) Anion Gap 14 (6-14) Blood Urea Nitrogen 51mg/dL (7-20) Creatinine 3.7mg/dL (0.6-1.0) Estimated GFR (Cockcroft-Gault) 12.8 BUN/Creatinine Ratio 14 (6-20) Glucose Level 143mg/dL (70-99) Calcium Level 8.0mg/dL (8.5-10.1) Magnesium Level 2.1mg/dL (1.8-2.4) Total Bilirubin 3.5mg/dL (0.2-1.0) Aspartate Amino Transf (AST/SGOT) 2235U/L (15-37) Alanine Aminotransferase (ALT/SGPT) 2934U/L (14-59) Alkaline Phosphatase 91U/L (46-116) Total Protein 5.8g/dL (6.4-8.2) Albumin 2.2g/dL (3.4-5.0) Albumin/Globulin Ratio 0.6 (1.0-1.7) Lactic Acid Level 1.4mmol/L (0.4-2.0) Test 04/14/16 11:29 04/14/16 18:02 04/14/16 22:32 04/15/16 06:20 Glucose (Fingerstick) 110mg/dL (70-99) 122mg/dL (70-99) 125mg/dL (70-99) White Blood Count 13.9x10^3/uL (4.0-11.0) Red Blood Count 2.77x10^6/uL (3.50-5.40) Hemoglobin 8.3g/dL (12.0-15.5) Hematocrit 25.8% (36.0-47.0) Mean Corpuscular Volume 93fL (79-100) Mean Corpuscular Hemoglobin 30pg (25-35) Mean Corpuscular Hemoglobin Concent 32g/dL (31-37) Red Cell Distribution Width 15.9% (11.5-14.5) Platelet Count 71x10^3/uL (140-400) Neutrophils (%) (Auto) 83% (31-73) Lymphocytes (%) (Auto) 9% (24-48) Monocytes (%) (Auto) 6% (0-9) Eosinophils (%) (Auto) 2% (0-3) Basophils (%) (Auto) 0% (0-3) Neutrophils # (Auto) 11.5x10^3uL (1.8-7.7) Lymphocytes # (Auto) 1.2x10^3/uL (1.0-4.8) Monocytes # (Auto) 0.8x10^3/uL (0.0-1.1) Eosinophils # (Auto) 0.3x10^3/uL (0.0-0.7) Basophils # (Auto) 0.1x10^3/uL (0.0-0.2) Prothrombin Time 22.5SEC (11.7-14.0) Prothromb Time International Ratio 2.1 (0.8-1.1) Sodium Level 139mmol/L (136-145) Potassium Level 4.4mmol/L (3.5-5.1) Chloride Level 101mmol/L (98-107) Carbon Dioxide Level 26mmol/L (21-32) Anion Gap 12 (6-14) Blood Urea Nitrogen 40mg/dL (7-20) Creatinine 3.6mg/dL (0.6-1.0) Estimated GFR (Cockcroft-Gault) 13.2 Glucose Level 148mg/dL (70-99) Calcium Level 7.9mg/dL (8.5-10.1) Phosphorus Level 3.5mg/dL (2.6-4.7) Magnesium Level 2.0mg/dL (1.8-2.4) Total Bilirubin 4.2mg/dL (0.2-1.0) Direct Bilirubin 2.9mg/dL (0.0-0.2) Aspartate Amino Transf (AST/SGOT) 1584U/L (15-37) Alanine Aminotransferase (ALT/SGPT) 2745U/L (14-59) Alkaline Phosphatase 104U/L (46-116) Creatine Kinase 240U/L (26-192) Total Protein 5.5g/dL (6.4-8.2) Albumin 2.0g/dL (3.4-5.0) Test 04/15/16 08:35 Glucose (Fingerstick) 131mg/dL (70-99) Laboratory Tests Test 04/14/16 10:00 04/14/16 11:29 04/14/16 18:02 04/14/16 22:32 Lactic Acid Level 1.4mmol/L (0.4-2.0) Glucose (Fingerstick) 110mg/dL (70-99) 122mg/dL (70-99) 125mg/dL (70-99) Test 04/15/16 06:20 04/15/16 08:35 White Blood Count 13.9x10^3/uL (4.0-11.0) Red Blood Count 2.77x10^6/uL (3.50-5.40) Hemoglobin 8.3g/dL (12.0-15.5) Hematocrit 25.8% (36.0-47.0) Mean Corpuscular Volume 93fL (79-100) Mean Corpuscular Hemoglobin 30pg (25-35) Mean Corpuscular Hemoglobin Concent 32g/dL (31-37) Red Cell Distribution Width 15.9% (11.5-14.5) Platelet Count 71x10^3/uL (140-400) Neutrophils (%) (Auto) 83% (31-73) Lymphocytes (%) (Auto) 9% (24-48) Monocytes (%) (Auto) 6% (0-9) Eosinophils (%) (Auto) 2% (0-3) Basophils (%) (Auto) 0% (0-3) Neutrophils # (Auto) 11.5x10^3uL (1.8-7.7) Lymphocytes # (Auto) 1.2x10^3/uL (1.0-4.8) Monocytes # (Auto) 0.8x10^3/uL (0.0-1.1) Eosinophils # (Auto) 0.3x10^3/uL (0.0-0.7) Basophils # (Auto) 0.1x10^3/uL (0.0-0.2) Prothrombin Time 22.5SEC (11.7-14.0) Prothromb Time International Ratio 2.1 (0.8-1.1) Sodium Level 139mmol/L (136-145) Potassium Level 4.4mmol/L (3.5-5.1) Chloride Level 101mmol/L (98-107) Carbon Dioxide Level 26mmol/L (21-32) Anion Gap 12 (6-14) Blood Urea Nitrogen 40mg/dL (7-20) Creatinine 3.6mg/dL (0.6-1.0) Estimated GFR (Cockcroft-Gault) 13.2 Glucose Level 148mg/dL (70-99) Calcium Level 7.9mg/dL (8.5-10.1) Phosphorus Level 3.5mg/dL (2.6-4.7) Magnesium Level 2.0mg/dL (1.8-2.4) Total Bilirubin 4.2mg/dL (0.2-1.0) Direct Bilirubin 2.9mg/dL (0.0-0.2) Aspartate Amino Transf (AST/SGOT) 1584U/L (15-37) Alanine Aminotransferase (ALT/SGPT) 2745U/L (14-59) Alkaline Phosphatase 104U/L (46-116) Creatine Kinase 240U/L (26-192) Total Protein 5.5g/dL (6.4-8.2) Albumin 2.0g/dL (3.4-5.0) Glucose (Fingerstick) 131mg/dL (70-99) GANGA TANG MD Apr 15, 2016 09:48
--- NOTE | 2016-04-15 10:05 | PDOC ---
MARILU AMADOR RESOURCE PARAPROFESSIONAL 04/15/16 1005: CARDIO Progress Notes Date and Time Date of Service 04/15/2016 Time of Evaluation 0945 Subjective Subjective: Other (lethargic, opens eyes and responds to pain. ) Vitals Vitals Vital Signs Date Time Temp Pulse Resp B/P Pulse Ox O2 Delivery O2 Flow Rate FiO2 04/15/16 06:00 106 25 118/62 97 Room Air 04/15/16 04:00 98.3 2.0 98.3 Weight Weight [ ] Input and Output Intake and Output Intake and Output 04/15/16 07:00 Intake Total 2920 ml Output Total 75 ml Balance 2845 ml Intake Oral 0 ml IV Total 2890 ml Other 30 ml Output Urine Total 75 ml Laboratory Labs Laboratory Tests Test 04/14/16 10:00 04/14/16 11:29 04/14/16 18:02 04/14/16 22:32 Lactic Acid Level 1.4mmol/L (0.4-2.0) Glucose (Fingerstick) 110mg/dL (70-99) 122mg/dL (70-99) 125mg/dL (70-99) Test 04/15/16 06:20 04/15/16 08:35 White Blood Count 13.9x10^3/uL (4.0-11.0) Red Blood Count 2.77x10^6/uL (3.50-5.40) Hemoglobin 8.3g/dL (12.0-15.5) Hematocrit 25.8% (36.0-47.0) Mean Corpuscular Volume 93fL (79-100) Mean Corpuscular Hemoglobin 30pg (25-35) Mean Corpuscular Hemoglobin Concent 32g/dL (31-37) Red Cell Distribution Width 15.9% (11.5-14.5) Platelet Count 71x10^3/uL (140-400) Neutrophils (%) (Auto) 83% (31-73) Lymphocytes (%) (Auto) 9% (24-48) Monocytes (%) (Auto) 6% (0-9) Eosinophils (%) (Auto) 2% (0-3) Basophils (%) (Auto) 0% (0-3) Neutrophils # (Auto) 11.5x10^3uL (1.8-7.7) Lymphocytes # (Auto) 1.2x10^3/uL (1.0-4.8) Monocytes # (Auto) 0.8x10^3/uL (0.0-1.1) Eosinophils # (Auto) 0.3x10^3/uL (0.0-0.7) Basophils # (Auto) 0.1x10^3/uL (0.0-0.2) Large Platelets Present Prothrombin Time 22.5SEC (11.7-14.0) Prothromb Time International Ratio 2.1 (0.8-1.1) Sodium Level 139mmol/L (136-145) Potassium Level 4.4mmol/L (3.5-5.1) Chloride Level 101mmol/L (98-107) Carbon Dioxide Level 26mmol/L (21-32) Anion Gap 12 (6-14) Blood Urea Nitrogen 40mg/dL (7-20) Creatinine 3.6mg/dL (0.6-1.0) Estimated GFR (Cockcroft-Gault) 13.2 Glucose Level 148mg/dL (70-99) Calcium Level 7.9mg/dL (8.5-10.1) Phosphorus Level 3.5mg/dL (2.6-4.7) Magnesium Level 2.0mg/dL (1.8-2.4) Total Bilirubin 4.2mg/dL (0.2-1.0) Direct Bilirubin 2.9mg/dL (0.0-0.2) Aspartate Amino Transf (AST/SGOT) 1584U/L (15-37) Alanine Aminotransferase (ALT/SGPT) 2745U/L (14-59) Alkaline Phosphatase 104U/L (46-116) Creatine Kinase 240U/L (26-192) Total Protein 5.5g/dL (6.4-8.2) Albumin 2.0g/dL (3.4-5.0) Glucose (Fingerstick) 131mg/dL (70-99) Microbiology Micro Microbiology 04/13/16 Blood Culture - Preliminary, Resulted NO GROWTH AFTER 1 DAY Physical Exam HEENT: Neck Supple W Full Motion Chest: Symmetric LUNGS: Other (bibasilar crackles) Heart: S1S2, RRR (sinus tachycardia with occasional PVCs), murmurs (2/6 systolic murmur to LLS border) Abdomen: Soft N/T, Other (anasarca) Extremities: Other (1+ bilateral LE pitting edema) Neurology: non-verbal, other (lethargic) Assessment Assessment 1. Multiorgan systemic failure/sepsis/shock liver 2. NSTEMI: likely type 2 related acute concurrent conditions 3. Acute systolic CHF with suspect underlying chronic CHF 4. YAN on CKD: likely endstage. 5. Cardiomyopathy: Suspect NICM. EF 20-25% global hypokinesis and severe pulmonary HTN 6. Metabolic encephalopathy 7. Anemia/thrombocytopenia: Hgb 8.3/PLT71 8. AICD in situ: single lead, med[employer]onic Recommendations 1. Continue with supportive care 2. Metoprolol IV in place, BP stable, will uptitrate per BP tolerance. 3. If significant recovery then will obtain ischemic workup in the form of MPI. 4. Fluid off loading per HD, planned estimated removal of 2 KG per staff. 5. Used to see Dr. Nunez, will obtain records 6. Interrogate device today ANTONELLA LANCASTER MD 04/15/16 1610: CARDIO Progress Notes Plan Plan Patient seen and examined. Agree with above nurse practitioner note. No significant changes from a mentation perspective. Patient still confused. On exam she appears less volume overloaded. She is resting comfortably laying in bed. Medications and laboratory studies reviewed. Continue supportive care from a cardiac perspective. She already has an ICD in place and likely has had long-standing severe LV dysfunction. Would defer myocardial perfusion study unless she has any symptoms when her mentation returns back to baseline or her ICD interrogation reveals significant ischemic arrhythmias. MARILU AMADOR APRN Apr 15, 2016 10:05 ANTONELLA LANCASTER MD Apr 15, 2016 16:10
--- NOTE | 2016-04-15 11:26 | PDOC ---
PULMONARY PROGRESS NOTES Subjective PT UNRESPONSIVE Vitals Vital Signs Date Time Temp Pulse Resp B/P Pulse Ox O2 Delivery O2 Flow Rate FiO2 04/15/16 08:00 Room Air 04/15/16 06:00 106 25 118/62 97 04/15/16 04:00 98.3 2.0 98.3 General: Lethargic Lungs: Clear Cardiovascular: S1, S2 Abdomen: Soft, Non-tender Extremities: No Edema Skin: Warm Labs Laboratory Tests Test 04/13/16 12:00 04/13/16 13:10 04/13/16 17:00 04/14/16 02:40 Fibrinogen 526mg/dL (200-440) Glucose (Fingerstick) 130mg/dL (70-99) 158mg/dL (70-99) Nasal Screen MRSA (PCR) Positive (Negative) Test 04/14/16 05:30 04/14/16 08:21 04/14/16 09:00 04/14/16 10:00 Prothrombin Time 24.3SEC (11.7-14.0) Prothromb Time International Ratio 2.3 (0.8-1.1) Creatine Kinase 406U/L (26-192) Glucose (Fingerstick) 156mg/dL (70-99) Sodium Level 139mmol/L (136-145) Potassium Level 3.9mmol/L (3.5-5.1) Chloride Level 100mmol/L (98-107) Carbon Dioxide Level 25mmol/L (21-32) Anion Gap 14 (6-14) Blood Urea Nitrogen 51mg/dL (7-20) Creatinine 3.7mg/dL (0.6-1.0) Estimated GFR (Cockcroft-Gault) 12.8 BUN/Creatinine Ratio 14 (6-20) Glucose Level 143mg/dL (70-99) Calcium Level 8.0mg/dL (8.5-10.1) Magnesium Level 2.1mg/dL (1.8-2.4) Total Bilirubin 3.5mg/dL (0.2-1.0) Aspartate Amino Transf (AST/SGOT) 2235U/L (15-37) Alanine Aminotransferase (ALT/SGPT) 2934U/L (14-59) Alkaline Phosphatase 91U/L (46-116) Total Protein 5.8g/dL (6.4-8.2) Albumin 2.2g/dL (3.4-5.0) Albumin/Globulin Ratio 0.6 (1.0-1.7) Lactic Acid Level 1.4mmol/L (0.4-2.0) Test 04/14/16 11:29 04/14/16 18:02 04/14/16 22:32 04/15/16 06:20 Glucose (Fingerstick) 110mg/dL (70-99) 122mg/dL (70-99) 125mg/dL (70-99) White Blood Count 13.9x10^3/uL (4.0-11.0) Red Blood Count 2.77x10^6/uL (3.50-5.40) Hemoglobin 8.3g/dL (12.0-15.5) Hematocrit 25.8% (36.0-47.0) Mean Corpuscular Volume 93fL (79-100) Mean Corpuscular Hemoglobin 30pg (25-35) Mean Corpuscular Hemoglobin Concent 32g/dL (31-37) Red Cell Distribution Width 15.9% (11.5-14.5) Platelet Count 71x10^3/uL (140-400) Neutrophils (%) (Auto) 83% (31-73) Lymphocytes (%) (Auto) 9% (24-48) Monocytes (%) (Auto) 6% (0-9) Eosinophils (%) (Auto) 2% (0-3) Basophils (%) (Auto) 0% (0-3) Neutrophils # (Auto) 11.5x10^3uL (1.8-7.7) Lymphocytes # (Auto) 1.2x10^3/uL (1.0-4.8) Monocytes # (Auto) 0.8x10^3/uL (0.0-1.1) Eosinophils # (Auto) 0.3x10^3/uL (0.0-0.7) Basophils # (Auto) 0.1x10^3/uL (0.0-0.2) Large Platelets Present Prothrombin Time 22.5SEC (11.7-14.0) Prothromb Time International Ratio 2.1 (0.8-1.1) Sodium Level 139mmol/L (136-145) Potassium Level 4.4mmol/L (3.5-5.1) Chloride Level 101mmol/L (98-107) Carbon Dioxide Level 26mmol/L (21-32) Anion Gap 12 (6-14) Blood Urea Nitrogen 40mg/dL (7-20) Creatinine 3.6mg/dL (0.6-1.0) Estimated GFR (Cockcroft-Gault) 13.2 Glucose Level 148mg/dL (70-99) Calcium Level 7.9mg/dL (8.5-10.1) Phosphorus Level 3.5mg/dL (2.6-4.7) Magnesium Level 2.0mg/dL (1.8-2.4) Total Bilirubin 4.2mg/dL (0.2-1.0) Direct Bilirubin 2.9mg/dL (0.0-0.2) Aspartate Amino Transf (AST/SGOT) 1584U/L (15-37) Alanine Aminotransferase (ALT/SGPT) 2745U/L (14-59) Alkaline Phosphatase 104U/L (46-116) Creatine Kinase 240U/L (26-192) Total Protein 5.5g/dL (6.4-8.2) Albumin 2.0g/dL (3.4-5.0) Test 04/15/16 08:35 04/15/16 09:00 Glucose (Fingerstick) 131mg/dL (70-99) Ammonia < 10mcmol/L (11-34) Laboratory Tests Test 04/14/16 11:29 04/14/16 18:02 04/14/16 22:32 04/15/16 06:20 Glucose (Fingerstick) 110mg/dL (70-99) 122mg/dL (70-99) 125mg/dL (70-99) White Blood Count 13.9x10^3/uL (4.0-11.0) Red Blood Count 2.77x10^6/uL (3.50-5.40) Hemoglobin 8.3g/dL (12.0-15.5) Hematocrit 25.8% (36.0-47.0) Mean Corpuscular Volume 93fL (79-100) Mean Corpuscular Hemoglobin 30pg (25-35) Mean Corpuscular Hemoglobin Concent 32g/dL (31-37) Red Cell Distribution Width 15.9% (11.5-14.5) Platelet Count 71x10^3/uL (140-400) Neutrophils (%) (Auto) 83% (31-73) Lymphocytes (%) (Auto) 9% (24-48) Monocytes (%) (Auto) 6% (0-9) Eosinophils (%) (Auto) 2% (0-3) Basophils (%) (Auto) 0% (0-3) Neutrophils # (Auto) 11.5x10^3uL (1.8-7.7) Lymphocytes # (Auto) 1.2x10^3/uL (1.0-4.8) Monocytes # (Auto) 0.8x10^3/uL (0.0-1.1) Eosinophils # (Auto) 0.3x10^3/uL (0.0-0.7) Basophils # (Auto) 0.1x10^3/uL (0.0-0.2) Large Platelets Present Prothrombin Time 22.5SEC (11.7-14.0) Prothromb Time International Ratio 2.1 (0.8-1.1) Sodium Level 139mmol/L (136-145) Potassium Level 4.4mmol/L (3.5-5.1) Chloride Level 101mmol/L (98-107) Carbon Dioxide Level 26mmol/L (21-32) Anion Gap 12 (6-14) Blood Urea Nitrogen 40mg/dL (7-20) Creatinine 3.6mg/dL (0.6-1.0) Estimated GFR (Cockcroft-Gault) 13.2 Glucose Level 148mg/dL (70-99) Calcium Level 7.9mg/dL (8.5-10.1) Phosphorus Level 3.5mg/dL (2.6-4.7) Magnesium Level 2.0mg/dL (1.8-2.4) Total Bilirubin 4.2mg/dL (0.2-1.0) Direct Bilirubin 2.9mg/dL (0.0-0.2) Aspartate Amino Transf (AST/SGOT) 1584U/L (15-37) Alanine Aminotransferase (ALT/SGPT) 2745U/L (14-59) Alkaline Phosphatase 104U/L (46-116) Creatine Kinase 240U/L (26-192) Total Protein 5.5g/dL (6.4-8.2) Albumin 2.0g/dL (3.4-5.0) Test 04/15/16 08:35 04/15/16 09:00 Glucose (Fingerstick) 131mg/dL (70-99) Ammonia < 10mcmol/L (11-34) Medications Active Scripts Medications Dose Route/Sig Days Date Category Chlorthalidone 25 Mg Tablet 1 Tab PO DAILY 04/12/16 Reported Magnesium (Magnesium Oxide) 250 Mg Tablet 250 Mg PO DAILY 04/12/16 Reported Glimepiride 4 Mg Tablet 1 Tab PO BID 04/12/16 Reported Proair Hfa Inhaler (Albuterol Sulfate) 8.5 Gm Hfa.aer.ad 1 Puff INH PRN Q6HRS PRN 04/12/16 Reported Chlorthalidone 25 Mg Tablet 1 Tab PO DAILY 04/12/16 Reported Lisinopril 5 Mg Tablet 1 Tab PO DAILY 04/12/16 Reported Crestor (Rosuvastatin Calcium) 20 Mg Tablet 1 Tab PO HS 04/12/16 Reported Gabapentin 300 Mg Capsule 300 Mg PO HS 04/12/16 Reported Multi Vitamin Daily (Multivitamin) 1 Each Tablet 1 Each PO DAILY 03/18/13 Reported Bumetanide 2 Mg Tablet 2 Mg PO DAILY 03/18/13 Reported Aspirin Ec (Aspirin) 81 Mg Tablet. 81 Mg PO DAILY 03/18/13 Reported Potassium Chloride 20 Meq Tab.er.prt 20 Meq PO DAILY 03/18/13 Reported Impression . 1. Acute respiratory failure secondary to sepsis. 2. Septic shock. 4. Toxic metabolic encephalopathy. 5. Acute on chronic renal failure. 6. Thrombocytopenia. 7. Elevated liver chemistries secondary to sepsis. 8. Non-ST segment elevation myocardial infarction. 9. Multiorgan failure secondary to sepsis. Plan . WILL CONTINUE SUPPORT PRN BIPAP NEURO CONSULTED APPRECIATE DR URBAN INPUT DVT AND GI PROPH START TUBE FEEDING ALLAN WAHL MD Apr 15, 2016 11:26
--- NOTE | 2016-04-15 11:36 | PDOC ---
PROGRESS NOTES Assessment Metabolic encephalopathy, multiple medical problems as listed above, no evidence of intrinsic brain problem such as stroke, seizure activity, or intracranial infection. Plan Hold off on additional neurological studies such as lumbar puncture. 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 Of course, treat medical diseases. Subjective None Objective Vital Signs Date Time Temp Pulse Resp B/P Pulse Ox O2 Delivery O2 Flow Rate FiO2 04/15/16 08:00 Room Air 04/15/16 06:00 106 25 118/62 97 04/15/16 04:00 98.3 2.0 98.3 Intake and Output 04/15/16 07:00 Intake Total 2920 ml Output Total 75 ml Balance 2845 ml Intake Oral 0 ml IV Total 2890 ml Other 30 ml Output Urine Total 75 ml PHYSICAL EXAM Alerts to voice, moans replies, does not follow commands PERRL. EOMI. CN: no focal findings. Muscle tone: normal. Muscle strength: moves all extremities DTR: 1+ Plantar reflex: flexor Gait: not examined in bed. Sensory exam: not cooperative Cerebellar: not cooperative Review of Relevant I have reviewed the following items nelda (where applicable) has been applied. Labs Laboratory Tests Test 04/13/16 12:00 04/13/16 13:10 04/13/16 17:00 04/14/16 02:40 Fibrinogen 526mg/dL (200-440) Glucose (Fingerstick) 130mg/dL (70-99) 158mg/dL (70-99) Nasal Screen MRSA (PCR) Positive (Negative) Test 04/14/16 05:30 04/14/16 08:21 04/14/16 09:00 04/14/16 10:00 Prothrombin Time 24.3SEC (11.7-14.0) Prothromb Time International Ratio 2.3 (0.8-1.1) Creatine Kinase 406U/L (26-192) Glucose (Fingerstick) 156mg/dL (70-99) Sodium Level 139mmol/L (136-145) Potassium Level 3.9mmol/L (3.5-5.1) Chloride Level 100mmol/L (98-107) Carbon Dioxide Level 25mmol/L (21-32) Anion Gap 14 (6-14) Blood Urea Nitrogen 51mg/dL (7-20) Creatinine 3.7mg/dL (0.6-1.0) Estimated GFR (Cockcroft-Gault) 12.8 BUN/Creatinine Ratio 14 (6-20) Glucose Level 143mg/dL (70-99) Calcium Level 8.0mg/dL (8.5-10.1) Magnesium Level 2.1mg/dL (1.8-2.4) Total Bilirubin 3.5mg/dL (0.2-1.0) Aspartate Amino Transf (AST/SGOT) 2235U/L (15-37) Alanine Aminotransferase (ALT/SGPT) 2934U/L (14-59) Alkaline Phosphatase 91U/L (46-116) Total Protein 5.8g/dL (6.4-8.2) Albumin 2.2g/dL (3.4-5.0) Albumin/Globulin Ratio 0.6 (1.0-1.7) Lactic Acid Level 1.4mmol/L (0.4-2.0) Test 04/14/16 11:29 04/14/16 18:02 04/14/16 22:32 04/15/16 06:20 Glucose (Fingerstick) 110mg/dL (70-99) 122mg/dL (70-99) 125mg/dL (70-99) White Blood Count 13.9x10^3/uL (4.0-11.0) Red Blood Count 2.77x10^6/uL (3.50-5.40) Hemoglobin 8.3g/dL (12.0-15.5) Hematocrit 25.8% (36.0-47.0) Mean Corpuscular Volume 93fL (79-100) Mean Corpuscular Hemoglobin 30pg (25-35) Mean Corpuscular Hemoglobin Concent 32g/dL (31-37) Red Cell Distribution Width 15.9% (11.5-14.5) Platelet Count 71x10^3/uL (140-400) Neutrophils (%) (Auto) 83% (31-73) Lymphocytes (%) (Auto) 9% (24-48) Monocytes (%) (Auto) 6% (0-9) Eosinophils (%) (Auto) 2% (0-3) Basophils (%) (Auto) 0% (0-3) Neutrophils # (Auto) 11.5x10^3uL (1.8-7.7) Lymphocytes # (Auto) 1.2x10^3/uL (1.0-4.8) Monocytes # (Auto) 0.8x10^3/uL (0.0-1.1) Eosinophils # (Auto) 0.3x10^3/uL (0.0-0.7) Basophils # (Auto) 0.1x10^3/uL (0.0-0.2) Large Platelets Present Prothrombin Time 22.5SEC (11.7-14.0) Prothromb Time International Ratio 2.1 (0.8-1.1) Sodium Level 139mmol/L (136-145) Potassium Level 4.4mmol/L (3.5-5.1) Chloride Level 101mmol/L (98-107) Carbon Dioxide Level 26mmol/L (21-32) Anion Gap 12 (6-14) Blood Urea Nitrogen 40mg/dL (7-20) Creatinine 3.6mg/dL (0.6-1.0) Estimated GFR (Cockcroft-Gault) 13.2 Glucose Level 148mg/dL (70-99) Calcium Level 7.9mg/dL (8.5-10.1) Phosphorus Level 3.5mg/dL (2.6-4.7) Magnesium Level 2.0mg/dL (1.8-2.4) Total Bilirubin 4.2mg/dL (0.2-1.0) Direct Bilirubin 2.9mg/dL (0.0-0.2) Aspartate Amino Transf (AST/SGOT) 1584U/L (15-37) Alanine Aminotransferase (ALT/SGPT) 2745U/L (14-59) Alkaline Phosphatase 104U/L (46-116) Creatine Kinase 240U/L (26-192) Total Protein 5.5g/dL (6.4-8.2) Albumin 2.0g/dL (3.4-5.0) Test 04/15/16 08:35 04/15/16 09:00 Glucose (Fingerstick) 131mg/dL (70-99) Ammonia < 10mcmol/L (11-34) Laboratory Tests Test 04/14/16 18:02 04/14/16 22:32 04/15/16 06:20 04/15/16 08:35 Glucose (Fingerstick) 122mg/dL (70-99) 125mg/dL (70-99) 131mg/dL (70-99) White Blood Count 13.9x10^3/uL (4.0-11.0) Red Blood Count 2.77x10^6/uL (3.50-5.40) Hemoglobin 8.3g/dL (12.0-15.5) Hematocrit 25.8% (36.0-47.0) Mean Corpuscular Volume 93fL (79-100) Mean Corpuscular Hemoglobin 30pg (25-35) Mean Corpuscular Hemoglobin Concent 32g/dL (31-37) Red Cell Distribution Width 15.9% (11.5-14.5) Platelet Count 71x10^3/uL (140-400) Neutrophils (%) (Auto) 83% (31-73) Lymphocytes (%) (Auto) 9% (24-48) Monocytes (%) (Auto) 6% (0-9) Eosinophils (%) (Auto) 2% (0-3) Basophils (%) (Auto) 0% (0-3) Neutrophils # (Auto) 11.5x10^3uL (1.8-7.7) Lymphocytes # (Auto) 1.2x10^3/uL (1.0-4.8) Monocytes # (Auto) 0.8x10^3/uL (0.0-1.1) Eosinophils # (Auto) 0.3x10^3/uL (0.0-0.7) Basophils # (Auto) 0.1x10^3/uL (0.0-0.2) Large Platelets Present Prothrombin Time 22.5SEC (11.7-14.0) Prothromb Time International Ratio 2.1 (0.8-1.1) Sodium Level 139mmol/L (136-145) Potassium Level 4.4mmol/L (3.5-5.1) Chloride Level 101mmol/L (98-107) Carbon Dioxide Level 26mmol/L (21-32) Anion Gap 12 (6-14) Blood Urea Nitrogen 40mg/dL (7-20) Creatinine 3.6mg/dL (0.6-1.0) Estimated GFR (Cockcroft-Gault) 13.2 Glucose Level 148mg/dL (70-99) Calcium Level 7.9mg/dL (8.5-10.1) Phosphorus Level 3.5mg/dL (2.6-4.7) Magnesium Level 2.0mg/dL (1.8-2.4) Total Bilirubin 4.2mg/dL (0.2-1.0) Direct Bilirubin 2.9mg/dL (0.0-0.2) Aspartate Amino Transf (AST/SGOT) 1584U/L (15-37) Alanine Aminotransferase (ALT/SGPT) 2745U/L (14-59) Alkaline Phosphatase 104U/L (46-116) Creatine Kinase 240U/L (26-192) Total Protein 5.5g/dL (6.4-8.2) Albumin 2.0g/dL (3.4-5.0) Test 04/15/16 09:00 Ammonia < 10mcmol/L (11-34) Microbiology 04/13/16 Blood Culture - Preliminary, Resulted NO GROWTH AFTER 1 DAY Medications Current Medications Acetaminophen (Tylenol) 650 mg PRN Q6HRS PRN PO Headaches, Temp > 101.5'; Start 04/12/16 at 02:30 Ondansetron HCl (Zofran) 4 mg PRN Q6HRS PRN IV NAUSEA/VOMITING; Start 04/12/16 at 02:30 Famotidine (Pepcid) 20 mg BID IVP Last administered on 04/15/16 08:46; Start 04/12/16 at 09:00 Info 1 ea DAILY MC ; Start 04/12/16 at 09:00 Fentanyl Citrate (Fentanyl 2ml Vial) 25 mcg PRN Q1HR PRN IV COMM Last administered on 04/13/16 00:27; Start 04/12/16 at 02:30 Fentanyl Citrate 50 mcg 50 mcg PRN Q1HR PRN IV COMM Last administered on 05:23; Start 04/12/16 at 02:30 Norepinephrine Bitartrate/Sodium Chloride (Levophed Vial/ Iv Sodium Chloride 0.9 % 250ml) 258 ml @ 0 mls/hr CONT PRN IV SEE I/O RECORD Last administered on 04/13 02:55; Start 04/12/16 at 02:30 Haloperidol Lactate (Haldol) 5 mg PRN Q6HRS PRN IVP AGITATION Last administered on 04/14/16 23:26; Start 04/12/16 at 02:30 Acetaminophen (Tylenol) 650 mg PRN Q6HRS PRN TX MILD PAIN / TEMP Last administered on 04/14/16 19:58; Start 04/12/16 at 03:30 Nystatin (Nystop) 1 gabrielle BID TP Last administered on 04/14/16 20:50; Start 01/16 at 03:30 Insulin Aspart (Novolog) 0-9 UNITS TIDWMEALS SQ Last administered on 04/13/16 17:06; Start 04/12/16 at 08:00 Dextrose 12.5 gm PRN Q15MIN PRN IV SEE COMMENTS; Start 04/12/16 at 04:00 Info 1 each 1 each PRN DAILY PRN MC SEE COMMENTS; Start 04/12/16 at 06:30 Piperacillin Sod/ Tazobactam Sod 3.375 gm/Sodium Chloride 50 ml @ 100 mls/hr Q8HRS IV ; Start 04/12/16 at 14:00; Stop 04/12/16 at 14:00; Status DC Levofloxacin/ Dextrose 100 ml @ 100 mls/hr 1X ONCE IV Last administered on 08:48; Start 04/12/16 at 08:00; Stop 04/12/16 at 08:59; Status DC Ceftriaxone Sodium 1 gm/ Sodium Chloride 50 ml @ 100 mls/hr Q24H IV Last administered on 04/12/16 08:48; Start 04/12/16 at 09:00; Stop 04/12/16 at 10:25 ; Status DC Piperacillin Sod/ Tazobactam Sod/ Sodium Chloride (Zosyn/Iv Sodium Chloride 0.9 % 50ml) 50 ml @ 100 mls/hr Q8HRS IV Last administered on 04/15/16 05:49; Start 04/12/16 at 14:00 Lidocaine/Sodium Bicarbonate (Buffered Lidocaine 1%) 3 ml 1X ONCE IJ Last administered on 04/12/16 12:45; Start 04/12/16 at 12:45; Stop 04/12/16 at 12:47 ; Status DC Heparin Sodium/ Sodium Chloride 60 unit 1X ONCE IV Last administered on 12:45; Start 04/12/16 at 12:45; Stop 04/12/16 at 12:47; Status DC Heparin Sodium (Porcine) 2,500 unit 1X ONCE INT CAT Last administered on 12:45; Start 04/12/16 at 12:45; Stop 04/12/16 at 12:47; Status DC Heparin Sodium (Porcine) 08648 unit 10,000 unit STK-MED ONCE .ROUTE ; Start 01/16 at 12:51; Stop 04/12/16 at 12:52; Status DC Sodium Chloride 1,000 ml @ 1,000 mls/hr Q1H PRN IV hypotension; Start 04/12/16 at 16:27; Stop 04/12/16 at 22:26; Status DC Albumin Human (Albuminar) 200 ml @ 200 mls/hr 1X PRN PRN IV Hypotension Last administered on 04/12/16 17:21; Start 04/12/16 at 16:30; Stop 04/12/16 at 22:29 ; Status DC Midodrine (Proamatine) 5 mg 1X ONCE PO ; Start 04/12/16 at 16:30; Stop at 16:34; Status DC Diphenhydramine HCl (Benadryl) 25 mg 1X PRN PRN IV ITCHING; Start 04/12/16 at 16:30; Stop 04/13/16 at 11:10; Status DC Diphenhydramine HCl (Benadryl) 25 mg 1X PRN PRN IV ITCHING; Start 04/12/16 at 16:30; Stop 04/13/16 at 11:10; Status DC Info 1 each 1 each PRN DAILY PRN MC SEE COMMENTS; Start 04/12/16 at 16:30; Status UNV Sodium Chloride 1,000 ml @ 15 mls/hr Q24H IV Last administered on 04/12/16 18 :14; Start 04/12/16 at 14:00; Stop 04/14/16 at 13:11; Status DC Sodium Chloride 250 ml @ 250 mls/hr 1X ONCE IV Last administered on 22:34; Start 04/12/16 at 22:30; Stop 04/12/16 at 23:29; Status DC Sodium Chloride 1,000 ml @ 75 mls/hr [id number] IV Last administered on 21:31; Start 04/13/16 at 09:30; Stop 04/14/16 at 13:11; Status DC Sodium Chloride 1,000 ml @ 1,000 mls/hr 1X ONCE IV Last administered on 10:10; Start 04/13/16 at 09:30; Stop 04/13/16 at 10:29; Status DC Amino Acids/ Glycerin/ Electrolytes 1,000 ml @ 80 mls/hr [id number] IV Last administered on 04/15/16 05:48; Start 04/13/16 at 10:00 Magnesium Sulfate/ Dextrose 50 ml @ 25 mls/hr 1X ONCE IV Last administered on 04/13/16 14:35; Start 04/13/16 at 15:00; Stop 04/13/16 at 16:59; Status DC Sodium Chloride (Iv Sodium Chloride 0.9% 1000ml Bag) 1,000 ml @ 1,000 mls/hr Q1H PRN IV hypotension; Start 04/14/16 at 08:13; Stop 04/14/16 at 14:12; Status DC Diphenhydramine HCl (Benadryl) 25 mg 1X PRN PRN IV ITCHING; Start 04/14/16 at 08:15; Stop 04/15/16 at 08:14; Status DC Diphenhydramine HCl (Benadryl) 25 mg 1X PRN PRN IV ITCHING; Start 04/14/16 at 08:15; Stop 04/15/16 at 08:14; Status DC Sodium Chloride (Normal Saline Flush) 10 ml 1X PRN PRN IV AP catheter pack; Start 04/14/16 at 08:15; Stop 04/15/16 at 08:14; Status DC Sodium Chloride 10 ml 10 ml 1X PRN PRN IV [employer] catheter pack; Start 04/14/16 at 08:15; Stop 04/15/16 at 08:14; Status DC Sodium Chloride (Iv Sodium Chloride 0.9% 1000ml Bag) 1,000 ml @ 400 mls/hr Q2H30M PRN IV PATENCY; Start 04/14/16 at 08:13; Stop 04/14/16 at 20:12; Status DC Info (PHARMACY MONITORING -- do not chart) 1 each PRN DAILY PRN MC SEE COMMENTS ; Start 04/14/16 at 08:15; Stop 04/14/16 at 08:20; Status DC Darbepoetin Manuel 60 mcg 60 mcg [id number] SQ Last administered on 04/14/16 20:46 ; Start 04/14/16 at 21:00 Magnesium Sulfate/ Dextrose (Magnesium Sulfate PREMIX 2GM) 50 ml @ 25 mls/hr PRN DAILY PRN IV for Mag < 1.7 on am labs; Start 04/14/16 at 09:30 Metoprolol Tartrate 2.5 mg 2.5 mg Q6HRS IVP Last administered on 04/15/16 05: 49; Start 04/14/16 at 11:30 Sodium Chloride 1,000 ml @ 1,000 mls/hr Q1H PRN IV hypotension; Start 04/15/16 at 07:30; Stop 04/15/16 at 13:29 Sodium Chloride (Iv Sodium Chloride 0.9% 1000ml Bag) 1,000 ml @ 400 mls/hr Q2H30M PRN IV PATENCY; Start 04/15/16 at 07:30; Stop 04/15/16 at 19:29 Info (PHARMACY MONITORING -- do not chart) 1 each PRN DAILY PRN MC SEE COMMENTS ; Start 04/15/16 at 09:15; Status UNV Active Scripts Active Reported Chlorthalidone 25 Mg Tablet 1 Tab PO DAILY Magnesium (Magnesium Oxide) 250 Mg Tablet 250 Mg PO DAILY Glimepiride 4 Mg Tablet 1 Tab PO BID Proair Hfa Inhaler (Albuterol Sulfate) 8.5 Gm Hfa.aer.ad 1 Puff INH PRN Q6HRS PRN Chlorthalidone 25 Mg Tablet 1 Tab PO DAILY Lisinopril 5 Mg Tablet 1 Tab PO DAILY Crestor (Rosuvastatin Calcium) 20 Mg Tablet 1 Tab PO HS Gabapentin 300 Mg Capsule 300 Mg PO HS Multi Vitamin Daily (Multivitamin) 1 Each Tablet 1 Each PO DAILY Bumetanide 2 Mg Tablet 2 Mg PO DAILY Aspirin Ec (Aspirin) 81 Mg Tablet.dr 81 Mg PO DAILY Potassium Chloride 20 Meq Tab.er.prt 20 Meq PO DAILY Vitals/I & O Vital Sign - Last 24 Hours 04/14/16 04/14/16 04/14/16 04/14/16 12:00 12:00 13:00 14:00 Temp 99.0 99.0 Pulse 130 126 122 B/P 118/88 121/57 103/58 Pulse Ox 96 96 97 O2 Delivery Room Air Room Air Room Air Nasal Cannula O2 Flow Rate 2.0 2.0 04/14/16 04/14/16 04/14/16 04/14/16 15:00 16:00 16:00 17:00 Temp 99.1 99.1 Pulse 124 124 122 B/P 121/54 112/51 123/51 Pulse Ox 97 97 97 O2 Delivery Nasal Cannula Nasal Cannula Room Air Nasal Cannula O2 Flow Rate 2.0 2.0 2.0 2.0 04/14/16 04/14/16 04/14/16 04/14/16 17:50 18:00 19:00 20:00 Temp 101.6 101.6 Pulse 122 117 118 Resp 21 B/P 108/54 93/43 109/48 Pulse Ox 96 98 O2 Delivery Nasal Cannula Nasal Cannula Nasal Cannula O2 Flow Rate 2.0 2.0 2.0 04/14/16 04/14/16 04/14/16 04/14/16 20:00 21:00 22:00 23:00 Temp 101.1 101.1 Pulse 121 114 102 109 Resp 28 25 27 16 B/P 130/50 111/53 110/52 109/54 Pulse Ox 98 99 99 100 O2 Delivery Nasal Cannula Nasal Cannula Nasal Cannula Nasal Cannula O2 Flow Rate 2.0 2.0 2.0 2.0 04/14/16 04/14/16 04/14/16 04/15/16 23:30 23:59 23:59 01:00 Temp 98.8 98.8 Pulse 106 96 99 Resp 21 24 B/P 109/54 103/44 116/61 Pulse Ox 100 100 O2 Delivery Nasal Cannula Nasal Cannula Nasal Cannula O2 Flow Rate 2.0 2.0 2.0 04/15/16 04/15/16 04/15/16 04/15/16 02:00 03:00 04:00 04:00 Temp 98.3 98.3 Pulse 105 105 109 Resp 18 29 B/P 96/44 118/51 98/45 Pulse Ox 99 100 99 O2 Delivery Nasal Cannula Nasal Cannula Nasal Cannula Nasal Cannula O2 Flow Rate 2.0 2.0 2.0 2.0 04/15/16 04/15/16 04/15/16 04/15/16 05:00 05:49 06:00 08:00 Pulse 112 111 106 Resp 22 25 B/P 119/69 116/66 118/62 Pulse Ox 94 97 O2 Delivery Room Air Room Air Room Air Intake and Output 04/14/16 04/14/16 04/15/16 15:00 23:00 07:00 Intake Total 20 ml 1910 ml 990 ml Output Total 30 ml 15 ml 30 ml Balance -10 ml 1895 ml 960 ml CONNER WALTON MD Apr 15, 2016 11:36
[2016-04-15 12:19] LABS: PLT ESTIMATE DECREASED (ADEQUATE)
--- NOTE | 2016-04-15 12:55 | PDOC ---
PROGRESS NOTES Chief Complaint Chief Complaint A/P 1. shock, POA,likely cardiogenic, sepsis less likely 2. [id number] congestive heart failure. 3. Elevated LFTs, possible due to shock POA 4. Elevated troponin POA 5. Elevated D dimer POA 6. Metabolic encephalopathy POA 7. Renal failure POA 8. Respiratory failure hypoxic 9. anemia 10. thrombocytopenia Plan OFF Levophed gtt, MAP > 65. on PPN Blood cx NEG so far CT head neg US showed left nephrectomy echo pEF 205 INR 2.1 Hematology consult ed Broad spectrum abx, ID following, on Zosyn, No source of external infection Intake and out HD per Nephrology d/w GI Prognosis poor/ guarded, cc time 35 min. pulm consulted History of Present Illness History of Present Illness very lethargic worse LFT bp better on low dose levaphed, now off pressors on HD now low urine output EF 20% with ICD Vitals Vitals Vital Signs Date Time Temp Pulse Resp B/P Pulse Ox O2 Delivery O2 Flow Rate FiO2 04/15/16 12:18 119 137/71 04/15/16 08:00 Room Air 04/15/16 06:00 25 97 04/15/16 04:00 98.3 2.0 98.3 Physical Exam Physical Exam lethargic, aaox 0, not answer questions or follow commands Heart: Regular rate, Normal S1, Normal S2, No murmurs, Gallops Lungs: Other (bl coarse bs) Abdomen: Normal bowel sounds, Soft, No tenderness, No hepatosplenomegaly, No masses Extremities: No clubbing, No cyanosis, No edema, Normal pulses, No tenderness/ swelling Labs LABS Laboratory Tests Test 04/14/16 18:02 04/14/16 22:32 04/15/16 06:20 04/15/16 08:35 Glucose (Fingerstick) 122mg/dL (70-99) 125mg/dL (70-99) 131mg/dL (70-99) White Blood Count 13.9x10^3/uL (4.0-11.0) Red Blood Count 2.77x10^6/uL (3.50-5.40) Hemoglobin 8.3g/dL (12.0-15.5) Hematocrit 25.8% (36.0-47.0) Mean Corpuscular Volume 93fL (79-100) Mean Corpuscular Hemoglobin 30pg (25-35) Mean Corpuscular Hemoglobin Concent 32g/dL (31-37) Red Cell Distribution Width 15.9% (11.5-14.5) Platelet Count 71x10^3/uL (140-400) Neutrophils (%) (Auto) 83% (31-73) Lymphocytes (%) (Auto) 9% (24-48) Monocytes (%) (Auto) 6% (0-9) Eosinophils (%) (Auto) 2% (0-3) Basophils (%) (Auto) 0% (0-3) Neutrophils # (Auto) 11.5x10^3uL (1.8-7.7) Lymphocytes # (Auto) 1.2x10^3/uL (1.0-4.8) Monocytes # (Auto) 0.8x10^3/uL (0.0-1.1) Eosinophils # (Auto) 0.3x10^3/uL (0.0-0.7) Basophils # (Auto) 0.1x10^3/uL (0.0-0.2) Platelet Estimate Decreased (ADEQUATE) Large Platelets Present Prothrombin Time 22.5SEC (11.7-14.0) Prothromb Time International Ratio 2.1 (0.8-1.1) Sodium Level 139mmol/L (136-145) Potassium Level 4.4mmol/L (3.5-5.1) Chloride Level 101mmol/L (98-107) Carbon Dioxide Level 26mmol/L (21-32) Anion Gap 12 (6-14) Blood Urea Nitrogen 40mg/dL (7-20) Creatinine 3.6mg/dL (0.6-1.0) Estimated GFR (Cockcroft-Gault) 13.2 Glucose Level 148mg/dL (70-99) Calcium Level 7.9mg/dL (8.5-10.1) Phosphorus Level 3.5mg/dL (2.6-4.7) Magnesium Level 2.0mg/dL (1.8-2.4) Total Bilirubin 4.2mg/dL (0.2-1.0) Direct Bilirubin 2.9mg/dL (0.0-0.2) Aspartate Amino Transf (AST/SGOT) 1584U/L (15-37) Alanine Aminotransferase (ALT/SGPT) 2745U/L (14-59) Alkaline Phosphatase 104U/L (46-116) Creatine Kinase 240U/L (26-192) Total Protein 5.5g/dL (6.4-8.2) Albumin 2.0g/dL (3.4-5.0) Test 04/15/16 09:00 04/15/16 12:33 Ammonia < 10mcmol/L (11-34) Glucose (Fingerstick) 111mg/dL (70-99) Review of Systems Review of Systems no fever, chills, sob or chest pain Comment Review of Relevant I have reviewed the following items nelda (where applicable) has been applied. Labs Laboratory Tests Test 04/13/16 13:10 04/13/16 17:00 04/14/16 02:40 04/14/16 05:30 Glucose (Fingerstick) 130mg/dL (70-99) 158mg/dL (70-99) Nasal Screen MRSA (PCR) Positive (Negative) Prothrombin Time 24.3SEC (11.7-14.0) Prothromb Time International Ratio 2.3 (0.8-1.1) Creatine Kinase 406U/L (26-192) Test 04/14/16 08:21 04/14/16 09:00 04/14/16 10:00 04/14/16 11:29 Glucose (Fingerstick) 156mg/dL (70-99) 110mg/dL (70-99) Sodium Level 139mmol/L (136-145) Potassium Level 3.9mmol/L (3.5-5.1) Chloride Level 100mmol/L (98-107) Carbon Dioxide Level 25mmol/L (21-32) Anion Gap 14 (6-14) Blood Urea Nitrogen 51mg/dL (7-20) Creatinine 3.7mg/dL (0.6-1.0) Estimated GFR (Cockcroft-Gault) 12.8 BUN/Creatinine Ratio 14 (6-20) Glucose Level 143mg/dL (70-99) Calcium Level 8.0mg/dL (8.5-10.1) Magnesium Level 2.1mg/dL (1.8-2.4) Total Bilirubin 3.5mg/dL (0.2-1.0) Aspartate Amino Transf (AST/SGOT) 2235U/L (15-37) Alanine Aminotransferase (ALT/SGPT) 2934U/L (14-59) Alkaline Phosphatase 91U/L (46-116) Total Protein 5.8g/dL (6.4-8.2) Albumin 2.2g/dL (3.4-5.0) Albumin/Globulin Ratio 0.6 (1.0-1.7) Lactic Acid Level 1.4mmol/L (0.4-2.0) Test 04/14/16 18:02 04/14/16 22:32 04/15/16 06:20 04/15/16 08:35 Glucose (Fingerstick) 122mg/dL (70-99) 125mg/dL (70-99) 131mg/dL (70-99) White Blood Count 13.9x10^3/uL (4.0-11.0) Red Blood Count 2.77x10^6/uL (3.50-5.40) Hemoglobin 8.3g/dL (12.0-15.5) Hematocrit 25.8% (36.0-47.0) Mean Corpuscular Volume 93fL (79-100) Mean Corpuscular Hemoglobin 30pg (25-35) Mean Corpuscular Hemoglobin Concent 32g/dL (31-37) Red Cell Distribution Width 15.9% (11.5-14.5) Platelet Count 71x10^3/uL (140-400) Neutrophils (%) (Auto) 83% (31-73) Lymphocytes (%) (Auto) 9% (24-48) Monocytes (%) (Auto) 6% (0-9) Eosinophils (%) (Auto) 2% (0-3) Basophils (%) (Auto) 0% (0-3) Neutrophils # (Auto) 11.5x10^3uL (1.8-7.7) Lymphocytes # (Auto) 1.2x10^3/uL (1.0-4.8) Monocytes # (Auto) 0.8x10^3/uL (0.0-1.1) Eosinophils # (Auto) 0.3x10^3/uL (0.0-0.7) Basophils # (Auto) 0.1x10^3/uL (0.0-0.2) Platelet Estimate Decreased (ADEQUATE) Large Platelets Present Prothrombin Time 22.5SEC (11.7-14.0) Prothromb Time International Ratio 2.1 (0.8-1.1) Sodium Level 139mmol/L (136-145) Potassium Level 4.4mmol/L (3.5-5.1) Chloride Level 101mmol/L (98-107) Carbon Dioxide Level 26mmol/L (21-32) Anion Gap 12 (6-14) Blood Urea Nitrogen 40mg/dL (7-20) Creatinine 3.6mg/dL (0.6-1.0) Estimated GFR (Cockcroft-Gault) 13.2 Glucose Level 148mg/dL (70-99) Calcium Level 7.9mg/dL (8.5-10.1) Phosphorus Level 3.5mg/dL (2.6-4.7) Magnesium Level 2.0mg/dL (1.8-2.4) Total Bilirubin 4.2mg/dL (0.2-1.0) Direct Bilirubin 2.9mg/dL (0.0-0.2) Aspartate Amino Transf (AST/SGOT) 1584U/L (15-37) Alanine Aminotransferase (ALT/SGPT) 2745U/L (14-59) Alkaline Phosphatase 104U/L (46-116) Creatine Kinase 240U/L (26-192) Total Protein 5.5g/dL (6.4-8.2) Albumin 2.0g/dL (3.4-5.0) Test 04/15/16 09:00 04/15/16 12:33 Ammonia < 10mcmol/L (11-34) Glucose (Fingerstick) 111mg/dL (70-99) Laboratory Tests Test 04/14/16 18:02 04/14/16 22:32 04/15/16 06:20 04/15/16 08:35 Glucose (Fingerstick) 122mg/dL (70-99) 125mg/dL (70-99) 131mg/dL (70-99) White Blood Count 13.9x10^3/uL (4.0-11.0) Red Blood Count 2.77x10^6/uL (3.50-5.40) Hemoglobin 8.3g/dL (12.0-15.5) Hematocrit 25.8% (36.0-47.0) Mean Corpuscular Volume 93fL (79-100) Mean Corpuscular Hemoglobin 30pg (25-35) Mean Corpuscular Hemoglobin Concent 32g/dL (31-37) Red Cell Distribution Width 15.9% (11.5-14.5) Platelet Count 71x10^3/uL (140-400) Neutrophils (%) (Auto) 83% (31-73) Lymphocytes (%) (Auto) 9% (24-48) Monocytes (%) (Auto) 6% (0-9) Eosinophils (%) (Auto) 2% (0-3) Basophils (%) (Auto) 0% (0-3) Neutrophils # (Auto) 11.5x10^3uL (1.8-7.7) Lymphocytes # (Auto) 1.2x10^3/uL (1.0-4.8) Monocytes # (Auto) 0.8x10^3/uL (0.0-1.1) Eosinophils # (Auto) 0.3x10^3/uL (0.0-0.7) Basophils # (Auto) 0.1x10^3/uL (0.0-0.2) Platelet Estimate Decreased (ADEQUATE) Large Platelets Present Prothrombin Time 22.5SEC (11.7-14.0) Prothromb Time International Ratio 2.1 (0.8-1.1) Sodium Level 139mmol/L (136-145) Potassium Level 4.4mmol/L (3.5-5.1) Chloride Level 101mmol/L (98-107) Carbon Dioxide Level 26mmol/L (21-32) Anion Gap 12 (6-14) Blood Urea Nitrogen 40mg/dL (7-20) Creatinine 3.6mg/dL (0.6-1.0) Estimated GFR (Cockcroft-Gault) 13.2 Glucose Level 148mg/dL (70-99) Calcium Level 7.9mg/dL (8.5-10.1) Phosphorus Level 3.5mg/dL (2.6-4.7) Magnesium Level 2.0mg/dL (1.8-2.4) Total Bilirubin 4.2mg/dL (0.2-1.0) Direct Bilirubin 2.9mg/dL (0.0-0.2) Aspartate Amino Transf (AST/SGOT) 1584U/L (15-37) Alanine Aminotransferase (ALT/SGPT) 2745U/L (14-59) Alkaline Phosphatase 104U/L (46-116) Creatine Kinase 240U/L (26-192) Total Protein 5.5g/dL (6.4-8.2) Albumin 2.0g/dL (3.4-5.0) Test 04/15/16 09:00 04/15/16 12:33 Ammonia < 10mcmol/L (11-34) Glucose (Fingerstick) 111mg/dL (70-99) Microbiology 04/13/16 Blood Culture - Preliminary, Resulted NO GROWTH AFTER 2 DAYS Medications Current Medications Acetaminophen (Tylenol) 650 mg PRN Q6HRS PRN PO Headaches, Temp > 101.5'; Start 04/12/16 at 02:30 Ondansetron HCl (Zofran) 4 mg PRN Q6HRS PRN IV NAUSEA/VOMITING; Start 04/12/16 at 02:30 Famotidine (Pepcid) 20 mg BID IVP Last administered on 04/15/16 08:46; Start 04/12/16 at 09:00; Stop 04/15/16 at 12:13; Status DC Info 1 ea DAILY MC ; Start 04/12/16 at 09:00 Fentanyl Citrate (Fentanyl 2ml Vial) 25 mcg PRN Q1HR PRN IV COMM Last administered on 04/13/16 00:27; Start 04/12/16 at 02:30 Fentanyl Citrate 50 mcg 50 mcg PRN Q1HR PRN IV COMM Last administered on 05:23; Start 04/12/16 at 02:30 Norepinephrine Bitartrate/Sodium Chloride (Levophed Vial/ Iv Sodium Chloride 0.9 % 250ml) 258 ml @ 0 mls/hr CONT PRN IV SEE I/O RECORD Last administered on 04/13 02:55; Start 04/12/16 at 02:30 Haloperidol Lactate (Haldol) 5 mg PRN Q6HRS PRN IVP AGITATION Last administered on 04/14/16 23:26; Start 04/12/16 at 02:30 Acetaminophen (Tylenol) 650 mg PRN Q6HRS PRN [place] MILD PAIN / TEMP Last administered on 04/14/16 19:58; Start 04/12/16 at 03:30 Nystatin (Nystop) 1 gabrielle BID TP Last administered on 04/15/16 09:00; Start 01/16 at 03:30 Insulin Aspart (Novolog) 0-9 UNITS TIDWMEALS SQ Last administered on 04/13/16 17:06; Start 04/12/16 at 08:00 Dextrose 12.5 gm PRN Q15MIN PRN IV SEE COMMENTS; Start 04/12/16 at 04:00 Info 1 each 1 each PRN DAILY PRN MC SEE COMMENTS; Start 04/12/16 at 06:30 Piperacillin Sod/ Tazobactam Sod 3.375 gm/Sodium Chloride 50 ml @ 100 mls/hr Q8HRS IV ; Start 04/12/16 at 14:00; Stop 04/12/16 at 14:00; Status DC Levofloxacin/ Dextrose 100 ml @ 100 mls/hr 1X ONCE IV Last administered on 08:48; Start 04/12/16 at 08:00; Stop 04/12/16 at 08:59; Status DC Ceftriaxone Sodium 1 gm/ Sodium Chloride 50 ml @ 100 mls/hr Q24H IV Last administered on 04/12/16 08:48; Start 04/12/16 at 09:00; Stop 04/12/16 at 10:25 ; Status DC Piperacillin Sod/ Tazobactam Sod/ Sodium Chloride (Zosyn/Iv Sodium Chloride 0.9 % 50ml) 50 ml @ 100 mls/hr Q8HRS IV Last administered on 04/15/16 05:49; Start 04/12/16 at 14:00 Lidocaine/Sodium Bicarbonate (Buffered Lidocaine 1%) 3 ml 1X ONCE IJ Last administered on 04/12/16 12:45; Start 04/12/16 at 12:45; Stop 04/12/16 at 12:47 ; Status DC Heparin Sodium/ Sodium Chloride 60 unit 1X ONCE IV Last administered on 12:45; Start 04/12/16 at 12:45; Stop 04/12/16 at 12:47; Status DC Heparin Sodium (Porcine) 2,500 unit 1X ONCE INT CAT Last administered on 12:45; Start 04/12/16 at 12:45; Stop 04/12/16 at 12:47; Status DC Heparin Sodium (Porcine) 05310 unit 10,000 unit STK-MED ONCE .ROUTE ; Start 01/16 at 12:51; Stop 04/12/16 at 12:52; Status DC Sodium Chloride 1,000 ml @ 1,000 mls/hr Q1H PRN IV hypotension; Start 04/12/16 at 16:27; Stop 04/12/16 at 22:26; Status DC Albumin Human (Albuminar) 200 ml @ 200 mls/hr 1X PRN PRN IV Hypotension Last administered on 04/12/16 17:21; Start 04/12/16 at 16:30; Stop 04/12/16 at 22:29 ; Status DC Midodrine (Proamatine) 5 mg 1X ONCE PO ; Start 04/12/16 at 16:30; Stop at 16:34; Status DC Diphenhydramine HCl (Benadryl) 25 mg 1X PRN PRN IV ITCHING; Start 04/12/16 at 16:30; Stop 04/13/16 at 11:10; Status DC Diphenhydramine HCl (Benadryl) 25 mg 1X PRN PRN IV ITCHING; Start 04/12/16 at 16:30; Stop 04/13/16 at 11:10; Status DC Info 1 each 1 each PRN DAILY PRN MC SEE COMMENTS; Start 04/12/16 at 16:30; Status UNV Sodium Chloride 1,000 ml @ 15 mls/hr Q24H IV Last administered on 04/12/16 18 :14; Start 04/12/16 at 14:00; Stop 04/14/16 at 13:11; Status DC Sodium Chloride 250 ml @ 250 mls/hr 1X ONCE IV Last administered on 22:34; Start 04/12/16 at 22:30; Stop 04/12/16 at 23:29; Status DC Sodium Chloride 1,000 ml @ 75 mls/hr [id number] IV Last administered on 21:31; Start 04/13/16 at 09:30; Stop 04/14/16 at 13:11; Status DC Sodium Chloride 1,000 ml @ 1,000 mls/hr 1X ONCE IV Last administered on 10:10; Start 04/13/16 at 09:30; Stop 04/13/16 at 10:29; Status DC Amino Acids/ Glycerin/ Electrolytes 1,000 ml @ 80 mls/hr [id number] IV Last administered on 04/15/16 12:17; Start 04/13/16 at 10:00 Magnesium Sulfate/ Dextrose 50 ml @ 25 mls/hr 1X ONCE IV Last administered on 04/13/16 14:35; Start 04/13/16 at 15:00; Stop 04/13/16 at 16:59; Status DC Sodium Chloride (Iv Sodium Chloride 0.9% 1000ml Bag) 1,000 ml @ 1,000 mls/hr Q1H PRN IV hypotension; Start 04/14/16 at 08:13; Stop 04/14/16 at 14:12; Status DC Diphenhydramine HCl (Benadryl) 25 mg 1X PRN PRN IV ITCHING; Start 04/14/16 at 08:15; Stop 04/15/16 at 08:14; Status DC Diphenhydramine HCl (Benadryl) 25 mg 1X PRN PRN IV ITCHING; Start 04/14/16 at 08:15; Stop 04/15/16 at 08:14; Status DC Sodium Chloride (Normal Saline Flush) 10 ml 1X PRN PRN IV AP catheter pack; Start 04/14/16 at 08:15; Stop 04/15/16 at 08:14; Status DC Sodium Chloride 10 ml 10 ml 1X PRN PRN IV [employer] catheter pack; Start 04/14/16 at 08:15; Stop 04/15/16 at 08:14; Status DC Sodium Chloride (Iv Sodium Chloride 0.9% 1000ml Bag) 1,000 ml @ 400 mls/hr Q2H30M PRN IV PATENCY; Start 04/14/16 at 08:13; Stop 04/14/16 at 20:12; Status DC Info (PHARMACY MONITORING -- do not chart) 1 each PRN DAILY PRN MC SEE COMMENTS ; Start 04/14/16 at 08:15; Stop 04/14/16 at 08:20; Status DC Darbepoetin Manuel 60 mcg 60 mcg [id number] SQ Last administered on 04/14/16t 20:46 ; Start 04/14/16 at 21:00 Magnesium Sulfate/ Dextrose (Magnesium Sulfate PREMIX 2GM) 50 ml @ 25 mls/hr PRN DAILY PRN IV for Mag < 1.7 on am labs; Start 04/14/16 at 09:30 Metoprolol Tartrate 2.5 mg 2.5 mg Q6HRS IVP Last administered on 04/15/16t 12: 18; Start 04/14/16 at 11:30 Sodium Chloride 1,000 ml @ 1,000 mls/hr Q1H PRN IV hypotension; Start 04/15/16 at 07:30; Stop 04/15/16 at 13:29 Sodium Chloride (Iv Sodium Chloride 0.9% 1000ml Bag) 1,000 ml @ 400 mls/hr Q2H30M PRN IV PATENCY; Start 04/15/16 at 07:30; Stop 04/15/16 at 19:29 Info (PHARMACY MONITORING -- do not chart) 1 each PRN DAILY PRN MC SEE COMMENTS ; Start 04/15/16 at 09:15; Status UNV Famotidine (Pepcid) 20 mg Q48H IVP ; Start 04/16/16 at 09:00 Active Scripts Active Reported Chlorthalidone 25 Mg Tablet 1 Tab PO DAILY Magnesium (Magnesium Oxide) 250 Mg Tablet 250 Mg PO DAILY Glimepiride 4 Mg Tablet 1 Tab PO BID Proair Hfa Inhaler (Albuterol Sulfate) 8.5 Gm Hfa.aer.ad 1 Puff INH PRN Q6HRS PRN Chlorthalidone 25 Mg Tablet 1 Tab PO DAILY Lisinopril 5 Mg Tablet 1 Tab PO DAILY Crestor (Rosuvastatin Calcium) 20 Mg Tablet 1 Tab PO HS Gabapentin 300 Mg Capsule 300 Mg PO HS Multi Vitamin Daily (Multivitamin) 1 Each Tablet 1 Each PO DAILY Bumetanide 2 Mg Tablet 2 Mg PO DAILY Aspirin Ec (Aspirin) 81 Mg Tablet.dr 81 Mg PO DAILY Potassium Chloride 20 Meq Tab.er.prt 20 Meq PO DAILY Vitals/I & O Vital Sign - Last 24 Hours 04/14/16 04/14/16 04/14/16 04/14/16 13:00 14:00 15:00 16:00 Temp 99.1 99.1 Pulse 126 122 124 124 B/P 121/57 103/58 121/54 112/51 Pulse Ox 96 97 97 97 O2 Delivery Room Air Nasal Cannula Nasal Cannula Nasal Cannula O2 Flow Rate 2.0 2.0 2.0 04/14/16 04/14/16 04/14/16 04/14/16 16:00 17:00 17:50 18:00 Pulse 122 122 117 B/P 123/51 108/54 93/43 Pulse Ox 97 96 O2 Delivery Room Air Nasal Cannula Nasal Cannula O2 Flow Rate 2.0 2.0 2.0 04/14/16 04/14/16 04/14/16 04/14/16 19:00 20:00 20:00 21:00 Temp 101.6 101.1 101.6 101.1 Pulse 118 121 114 Resp 25 B/P 109/48 130/50 111/53 Pulse Ox 98 98 99 O2 Delivery Nasal Cannula Nasal Cannula Nasal Cannula Nasal Cannula O2 Flow Rate 2.0 2.0 2.0 2.0 04/14/16 04/14/16 04/14/16 04/14/16 22:00 23:00 23:30 23:59 Pulse 102 109 106 Resp 16 B/P 110/52 109/54 109/54 Pulse Ox 99 100 O2 Delivery Nasal Cannula Nasal Cannula Nasal Cannula O2 Flow Rate 2.0 2.0 2.0 04/14/16 04/15/16 04/15/16 04/15/16 23:59 01:00 02:00 03:00 Temp 98.8 98.8 Pulse 96 99 105 105 Resp 18 B/P 103/44 116/61 96/44 118/51 Pulse Ox 100 100 99 100 O2 Delivery Nasal Cannula Nasal Cannula Nasal Cannula Nasal Cannula O2 Flow Rate 2.0 2.0 2.0 2.0 04/15/16 04/15/16 04/15/16 04/15/16 04:00 04:00 05:00 05:49 Temp 98.3 98.3 Pulse 109 112 111 Resp 22 B/P 98/45 119/69 116/66 Pulse Ox 99 94 O2 Delivery Nasal Cannula Nasal Cannula Room Air O2 Flow Rate 2.0 2.0 04/15/16 04/15/16 04/15/16 06:00 08:00 12:18 Pulse 106 119 Resp 25 B/P 118/62 137/71 Pulse Ox 97 O2 Delivery Room Air Room Air Intake and Output 04/14/16 04/14/16 04/15/16 15:00 23:00 07:00 Intake Total 20 ml 1910 ml 990 ml Output Total 30 ml 15 ml 30 ml Balance -10 ml 1895 ml 960 ml LYNETTE MOSHER MD Apr 15, 2016 12:55
--- NOTE | 2016-04-15 13:03 | EKG ---
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
[2016-04-15] MEDS: FENTANYL PF 100 MCG/2 ML VIAL. IV PRN (14:55)
[2016-04-15] MEDS: ACETAMINOPHEN 650 MG SUPP.RECT. PR PRN (19:55)
[2016-04-16] VITALS (23 sets, daily range): BP systolic 86–140; BP diastolic 48–83
[2016-04-16] MEDS: AA 3%/ELECTROLYTE-TPN SOLN/GLY 1,000 ML IV SCH ×2 (00:13→12:38)
[2016-04-16] MEDS: FENTANYL PF 100 MCG/2 ML VIAL. IV PRN (00:23)
[2016-04-16] MEDS: PIPERACILLIN/TAZOBACTAM 2.25 GM in IV NORMAL SALINE 50ML 50 ML IV SCH ×3 (05:22→21:32)
[2016-04-16] MEDS: METOPROLOL TARTRATE 5 MG/5 ML VIAL. IVP SCH ×4 (05:23→18:00)
[2016-04-16 05:58] LABS: BASO # 0.1 x10^3/uL (0.0-0.2); BASO % 1 % (0-3); EOS % 3 % (0-3); HEMATOCRIT 27.1 % (36.0-47.0); HEMOGLOBIN 8.8 g/dL (12.0-15.5); LYMPH # 1.7 x10^3/uL (1.0-4.8); LYMPH % 9 % (24-48); MEAN CORPUSCULAR HEMOGLOBIN 30 pg (25-35); MEAN CORPUSCULAR HGB CONC 32 g/dL (31-37); MEAN CORPUSCULAR VOLUME 93 fL (79-100); MONO % 8 % (0-9); NEUT % 79 % (31-73); PLATELET COUNT 109 x10^3/uL (140-400); RED CELL DISTRIBUTION WIDTH 16.4 % (11.5-14.5); WHITE BLOOD COUNT 18.5 x10^3/uL (4.0-11.0)
[2016-04-16 06:07] LABS: INR 1.9 (0.8-1.1); PROTHROMBIN TIME PATIENT 20.4 SEC (11.7-14.0)
[2016-04-16 06:14] LABS: ALBUMIN 1.8 g/dL (3.4-5.0); CALCIUM 8.3 mg/dL (8.5-10.1); CREATININE 3.2 mg/dL (0.6-1.0); GFR 15.1; PHOSPHORUS 2.8 mg/dL (2.6-4.7); POTASSIUM 4.3 mmol/L (3.5-5.1)
[2016-04-16 06:17] LABS: MAGNESIUM 2.1 mg/dL (1.8-2.4)
[2016-04-16 06:24] LABS: ALBUMIN 1.8 g/dL (3.4-5.0); DIRECT BILIRUBIN 3.4 mg/dL (0.0-0.2); TOTAL BILIRUBIN 4.6 mg/dL (0.2-1.0); TOTAL PROTEIN 5.1 g/dL (6.4-8.2)
[2016-04-16] MEDS ORDERED: IV NORMAL SALINE 1000ML BAG 1,000 ML IV PRN (07:37)
[2016-04-16] MEDS ORDERED: ALBUMIN HUMAN 25% 200 ML IV PRN (07:45)
[2016-04-16] MEDS ORDERED: DIALYSIS PATIENT. MC PRN ×2 (07:45)
[2016-04-16] MEDS: INSULIN ASPART 300 UNITS/3 ML INSULN.PEN SQ SCH ×3 (08:00→17:00)
--- NOTE | 2016-04-16 08:17 | PDOC ---
Infectious Disease Note Subjective Subjective + cough Less fever opens eyes and speaks some ROS ROS GEN: Denies fevers, chills, sweats HEENT: Denies blurred vision, sore throat CV: Denies chest pain RESP: Denies shortness of air, cough GI: Denies n/v/d NEURO: Denies confusion, dizziness MSK: Denies weakness, joint pain/swelling Vital Sign Vital Signs Vital Signs Date Time Temp Pulse Resp B/P Pulse Ox O2 Delivery O2 Flow Rate FiO2 04/16/16 06:00 106 15 100/50 96 Room Air 04/16/16 04:00 98.4 98.4 04/16/16 02:00 2.0 Physical Exam PHYSICAL EXAM GENERAL: NAD, Alert HEENT: PERRL, OC/OP NECK: Supple, no JVD, no LN LUNGS: Clear HEART: S1S2, no gallop, no murmur ABD: Soft, NT, no organomegaly, no rebound EXT: No edema, no cyanosis [employer] 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, 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 x 3, no focal neurologic deficit SKIN: No rash IV: ok Labs Lab Laboratory Tests Test 04/15/16 08:35 04/15/16 09:00 04/15/16 12:33 04/15/16 17:32 Glucose (Fingerstick) 131mg/dL (70-99) 111mg/dL (70-99) 120mg/dL (70-99) Ammonia < 10mcmol/L (11-34) Test 04/15/16 22:10 04/16/16 05:15 Glucose (Fingerstick) 138mg/dL (70-99) White Blood Count 18.5x10^3/uL (4.0-11.0) Red Blood Count 2.90x10^6/uL (3.50-5.40) Hemoglobin 8.8g/dL (12.0-15.5) Hematocrit 27.1% (36.0-47.0) Mean Corpuscular Volume 93fL (79-100) Mean Corpuscular Hemoglobin 30pg (25-35) Mean Corpuscular Hemoglobin Concent 32g/dL (31-37) Red Cell Distribution Width 16.4% (11.5-14.5) Platelet Count 109x10^3/uL (140-400) Neutrophils (%) (Auto) 79% (31-73) Lymphocytes (%) (Auto) 9% (24-48) Monocytes (%) (Auto) 8% (0-9) Eosinophils (%) (Auto) 3% (0-3) Basophils (%) (Auto) 1% (0-3) Neutrophils # (Auto) 14.6x10^3uL (1.8-7.7) Lymphocytes # (Auto) 1.7x10^3/uL (1.0-4.8) Monocytes # (Auto) 1.5x10^3/uL (0.0-1.1) Eosinophils # (Auto) 0.5x10^3/uL (0.0-0.7) Basophils # (Auto) 0.1x10^3/uL (0.0-0.2) Prothrombin Time 20.4SEC (11.7-14.0) Prothromb Time International Ratio 1.9 (0.8-1.1) Sodium Level 136mmol/L (136-145) Potassium Level 4.3mmol/L (3.5-5.1) Chloride Level 99mmol/L (98-107) Carbon Dioxide Level 26mmol/L (21-32) Anion Gap 11 (6-14) Blood Urea Nitrogen 36mg/dL (7-20) Creatinine 3.2mg/dL (0.6-1.0) Estimated GFR (Cockcroft-Gault) 15.1 Glucose Level 181mg/dL (70-99) Calcium Level 8.3mg/dL (8.5-10.1) Phosphorus Level 2.8mg/dL (2.6-4.7) Magnesium Level 2.1mg/dL (1.8-2.4) Total Bilirubin 4.6mg/dL (0.2-1.0) Direct Bilirubin 3.4mg/dL (0.0-0.2) Aspartate Amino Transf (AST/SGOT) 713U/L (15-37) Alanine Aminotransferase (ALT/SGPT) 1875U/L (14-59) Alkaline Phosphatase 86U/L (46-116) Creatine Kinase 122U/L (26-192) Total Protein 5.1g/dL (6.4-8.2) Albumin 1.8g/dL (3.4-5.0) Micro culture neg Objective Assessment Sepsis with hypotension. Lactic acidosis, improving YAN on CKD. h/o nephrectomy. Now on HD Acute CHF. BNP > 350,000 ([facility]) Elevated LFTs Diabetes mellitus Type I Pacemaker/defibrillator Obesity Plan Plan of Care Zosyn One time dose vanc at [facility]. Hold further doses given renal function One time dose Levaquin 04/12. BC from [facility] NGTD f/u today's CMP & US Critically ill DRISS TANG MD Apr 16, 2016 08:17
[2016-04-16] MEDS ORDERED: FAMOTIDINE 20 MG/2 ML VIAL IVP SCH (09:00)
[2016-04-16] MEDS: ELECTROLYTE (ICU) PROTOCOL. MC SCH (09:00)
--- NOTE | 2016-04-16 09:58 | PDOC ---
PROGRESS NOTES Assessment Metabolic encephalopathy, multiple medical problems, better Plan Hold off on additional neurological studies such as lumbar puncture. 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 Treat medical diseases. Subjective none Objective Vital Signs Date Time Temp Pulse Resp B/P Pulse Ox O2 Delivery O2 Flow Rate FiO2 04/16/16 06:00 106 15 100/50 96 Room Air 04/16/16 04:00 98.4 98.4 04/16/16 02:00 2.0 Intake and Output 04/16/16 07:00 Intake Total 1942 ml Output Total 0 ml Balance 1942 ml IV Total 1942 ml Output Urine Total 0 ml PHYSICAL EXAM Alerts to voice, moans replies, squeezes hands to command PERRL. EOMI. CN: no focal findings. Muscle tone: normal. Muscle strength: moves all extremities DTR: 1+ Plantar reflex: flexor Gait: not examined in bed. Sensory exam: not cooperative Cerebellar: not cooperative Review of Relevant I have reviewed the following items nelda (where applicable) has been applied. Labs Laboratory Tests Test 04/14/16 10:00 04/14/16 11:29 04/14/16 18:02 04/14/16 22:32 Lactic Acid Level 1.4mmol/L (0.4-2.0) Glucose (Fingerstick) 110mg/dL (70-99) 122mg/dL (70-99) 125mg/dL (70-99) Test 04/15/16 06:20 04/15/16 08:35 04/15/16 09:00 04/15/16 12:33 White Blood Count 13.9x10^3/uL (4.0-11.0) Red Blood Count 2.77x10^6/uL (3.50-5.40) Hemoglobin 8.3g/dL (12.0-15.5) Hematocrit 25.8% (36.0-47.0) Mean Corpuscular Volume 93fL (79-100) Mean Corpuscular Hemoglobin 30pg (25-35) Mean Corpuscular Hemoglobin Concent 32g/dL (31-37) Red Cell Distribution Width 15.9% (11.5-14.5) Platelet Count 71x10^3/uL (140-400) Neutrophils (%) (Auto) 83% (31-73) Lymphocytes (%) (Auto) 9% (24-48) Monocytes (%) (Auto) 6% (0-9) Eosinophils (%) (Auto) 2% (0-3) Basophils (%) (Auto) 0% (0-3) Neutrophils # (Auto) 11.5x10^3uL (1.8-7.7) Lymphocytes # (Auto) 1.2x10^3/uL (1.0-4.8) Monocytes # (Auto) 0.8x10^3/uL (0.0-1.1) Eosinophils # (Auto) 0.3x10^3/uL (0.0-0.7) Basophils # (Auto) 0.1x10^3/uL (0.0-0.2) Platelet Estimate Decreased (ADEQUATE) Large Platelets Present Prothrombin Time 22.5SEC (11.7-14.0) Prothromb Time International Ratio 2.1 (0.8-1.1) Sodium Level 139mmol/L (136-145) Potassium Level 4.4mmol/L (3.5-5.1) Chloride Level 101mmol/L (98-107) Carbon Dioxide Level 26mmol/L (21-32) Anion Gap 12 (6-14) Blood Urea Nitrogen 40mg/dL (7-20) Creatinine 3.6mg/dL (0.6-1.0) Estimated GFR (Cockcroft-Gault) 13.2 Glucose Level 148mg/dL (70-99) Calcium Level 7.9mg/dL (8.5-10.1) Phosphorus Level 3.5mg/dL (2.6-4.7) Magnesium Level 2.0mg/dL (1.8-2.4) Total Bilirubin 4.2mg/dL (0.2-1.0) Direct Bilirubin 2.9mg/dL (0.0-0.2) Aspartate Amino Transf (AST/SGOT) 1584U/L (15-37) Alanine Aminotransferase (ALT/SGPT) 2745U/L (14-59) Alkaline Phosphatase 104U/L (46-116) Creatine Kinase 240U/L (26-192) Total Protein 5.5g/dL (6.4-8.2) Albumin 2.0g/dL (3.4-5.0) Glucose (Fingerstick) 131mg/dL (70-99) 111mg/dL (70-99) Ammonia < 10mcmol/L (11-34) Test 04/15/16 17:32 04/15/16 22:10 04/16/16 05:15 Glucose (Fingerstick) 120mg/dL (70-99) 138mg/dL (70-99) White Blood Count 18.5x10^3/uL (4.0-11.0) Red Blood Count 2.90x10^6/uL (3.50-5.40) Hemoglobin 8.8g/dL (12.0-15.5) Hematocrit 27.1% (36.0-47.0) Mean Corpuscular Volume 93fL (79-100) Mean Corpuscular Hemoglobin 30pg (25-35) Mean Corpuscular Hemoglobin Concent 32g/dL (31-37) Red Cell Distribution Width 16.4% (11.5-14.5) Platelet Count 109x10^3/uL (140-400) Neutrophils (%) (Auto) 79% (31-73) Lymphocytes (%) (Auto) 9% (24-48) Monocytes (%) (Auto) 8% (0-9) Eosinophils (%) (Auto) 3% (0-3) Basophils (%) (Auto) 1% (0-3) Neutrophils # (Auto) 14.6x10^3uL (1.8-7.7) Lymphocytes # (Auto) 1.7x10^3/uL (1.0-4.8) Monocytes # (Auto) 1.5x10^3/uL (0.0-1.1) Eosinophils # (Auto) 0.5x10^3/uL (0.0-0.7) Basophils # (Auto) 0.1x10^3/uL (0.0-0.2) Prothrombin Time 20.4SEC (11.7-14.0) Prothromb Time International Ratio 1.9 (0.8-1.1) Sodium Level 136mmol/L (136-145) Potassium Level 4.3mmol/L (3.5-5.1) Chloride Level 99mmol/L (98-107) Carbon Dioxide Level 26mmol/L (21-32) Anion Gap 11 (6-14) Blood Urea Nitrogen 36mg/dL (7-20) Creatinine 3.2mg/dL (0.6-1.0) Estimated GFR (Cockcroft-Gault) 15.1 Glucose Level 181mg/dL (70-99) Calcium Level 8.3mg/dL (8.5-10.1) Phosphorus Level 2.8mg/dL (2.6-4.7) Magnesium Level 2.1mg/dL (1.8-2.4) Total Bilirubin 4.6mg/dL (0.2-1.0) Direct Bilirubin 3.4mg/dL (0.0-0.2) Aspartate Amino Transf (AST/SGOT) 713U/L (15-37) Alanine Aminotransferase (ALT/SGPT) 1875U/L (14-59) Alkaline Phosphatase 86U/L (46-116) Creatine Kinase 122U/L (26-192) Total Protein 5.1g/dL (6.4-8.2) Albumin 1.8g/dL (3.4-5.0) Laboratory Tests Test 04/15/16 12:33 04/15/16 17:32 04/15/16 22:10 04/16/16 05:15 Glucose (Fingerstick) 111mg/dL (70-99) 120mg/dL (70-99) 138mg/dL (70-99) White Blood Count 18.5x10^3/uL (4.0-11.0) Red Blood Count 2.90x10^6/uL (3.50-5.40) Hemoglobin 8.8g/dL (12.0-15.5) Hematocrit 27.1% (36.0-47.0) Mean Corpuscular Volume 93fL (79-100) Mean Corpuscular Hemoglobin 30pg (25-35) Mean Corpuscular Hemoglobin Concent 32g/dL (31-37) Red Cell Distribution Width 16.4% (11.5-14.5) Platelet Count 109x10^3/uL (140-400) Neutrophils (%) (Auto) 79% (31-73) Lymphocytes (%) (Auto) 9% (24-48) Monocytes (%) (Auto) 8% (0-9) Eosinophils (%) (Auto) 3% (0-3) Basophils (%) (Auto) 1% (0-3) Neutrophils # (Auto) 14.6x10^3uL (1.8-7.7) Lymphocytes # (Auto) 1.7x10^3/uL (1.0-4.8) Monocytes # (Auto) 1.5x10^3/uL (0.0-1.1) Eosinophils # (Auto) 0.5x10^3/uL (0.0-0.7) Basophils # (Auto) 0.1x10^3/uL (0.0-0.2) Prothrombin Time 20.4SEC (11.7-14.0) Prothromb Time International Ratio 1.9 (0.8-1.1) Sodium Level 136mmol/L (136-145) Potassium Level 4.3mmol/L (3.5-5.1) Chloride Level 99mmol/L (98-107) Carbon Dioxide Level 26mmol/L (21-32) Anion Gap 11 (6-14) Blood Urea Nitrogen 36mg/dL (7-20) Creatinine 3.2mg/dL (0.6-1.0) Estimated GFR (Cockcroft-Gault) 15.1 Glucose Level 181mg/dL (70-99) Calcium Level 8.3mg/dL (8.5-10.1) Phosphorus Level 2.8mg/dL (2.6-4.7) Magnesium Level 2.1mg/dL (1.8-2.4) Total Bilirubin 4.6mg/dL (0.2-1.0) Direct Bilirubin 3.4mg/dL (0.0-0.2) Aspartate Amino Transf (AST/SGOT) 713U/L (15-37) Alanine Aminotransferase (ALT/SGPT) 1875U/L (14-59) Alkaline Phosphatase 86U/L (46-116) Creatine Kinase 122U/L (26-192) Total Protein 5.1g/dL (6.4-8.2) Albumin 1.8g/dL (3.4-5.0) Microbiology 04/13/16 Blood Culture - Preliminary, Resulted NO GROWTH AFTER 2 DAYS Medications Current Medications Acetaminophen (Tylenol) 650 mg PRN Q6HRS PRN PO Headaches, Temp > 101.5'; Start 04/12/16 at 02:30 Ondansetron HCl (Zofran) 4 mg PRN Q6HRS PRN IV NAUSEA/VOMITING; Start 04/12/16 at 02:30 Famotidine (Pepcid) 20 mg BID IVP Last administered on 04/15/16 08:46; Start 04/12/16 at 09:00; Stop 04/15/16 at 12:13; Status DC Info 1 ea DAILY MC ; Start 04/12/16 at 09:00 Fentanyl Citrate (Fentanyl 2ml Vial) 25 mcg PRN Q1HR PRN IV COMM Last administered on 04/15/16 14:55; Start 04/12/16 at 02:30 Fentanyl Citrate 50 mcg 50 mcg PRN Q1HR PRN IV COMM Last administered on 00:23; Start 04/12/16 at 02:30 Norepinephrine Bitartrate/Sodium Chloride (Levophed Vial/ Iv Sodium Chloride 0.9 % 250ml) 258 ml @ 0 mls/hr CONT PRN IV SEE I/O RECORD Last administered on 04/13 02:55; Start 04/12/16 at 02:30 Haloperidol Lactate (Haldol) 5 mg PRN Q6HRS PRN IVP AGITATION Last administered on 04/14/16 23:26; Start 04/12/16 at 02:30 Acetaminophen (Tylenol) 650 mg PRN Q6HRS PRN IN MILD PAIN / TEMP Last administered on 04/15/16 19:55; Start 04/12/16 at 03:30 Nystatin (Nystop) 1 gabrielle BID TP Last administered on 04/15/16 21:34; Start 01/16 at 03:30 Insulin Aspart (Novolog) 0-9 UNITS TIDWMEALS SQ Last administered on 04/13/16 17:06; Start 04/12/16 at 08:00 Dextrose 12.5 gm PRN Q15MIN PRN IV SEE COMMENTS; Start 04/12/16 at 04:00 Info 1 each 1 each PRN DAILY PRN MC SEE COMMENTS; Start 04/12/16 at 06:30 Piperacillin Sod/ Tazobactam Sod 3.375 gm/Sodium Chloride 50 ml @ 100 mls/hr Q8HRS IV ; Start 04/12/16 at 14:00; Stop 04/12/16 at 14:00; Status DC Levofloxacin/ Dextrose 100 ml @ 100 mls/hr 1X ONCE IV Last administered on 08:48; Start 04/12/16 at 08:00; Stop 04/12/16 at 08:59; Status DC Ceftriaxone Sodium 1 gm/ Sodium Chloride 50 ml @ 100 mls/hr Q24H IV Last administered on 04/12/16 08:48; Start 04/12/16 at 09:00; Stop 04/12/16 at 10:25 ; Status DC Piperacillin Sod/ Tazobactam Sod/ Sodium Chloride (Zosyn/Iv Sodium Chloride 0.9 % 50ml) 50 ml @ 100 mls/hr Q8HRS IV Last administered on 04/16/16 05:22; Start 04/12/16 at 14:00 Lidocaine/Sodium Bicarbonate (Buffered Lidocaine 1%) 3 ml 1X ONCE IJ Last administered on 04/12/16 12:45; Start 04/12/16 at 12:45; Stop 04/12/16 at 12:47 ; Status DC Heparin Sodium/ Sodium Chloride 60 unit 1X ONCE IV Last administered on 12:45; Start 04/12/16 at 12:45; Stop 04/12/16 at 12:47; Status DC Heparin Sodium (Porcine) 2,500 unit 1X ONCE INT CAT Last administered on 12:45; Start 04/12/16 at 12:45; Stop 04/12/16 at 12:47; Status DC Heparin Sodium (Porcine) 38797 unit 10,000 unit STK-MED ONCE .ROUTE ; Start 01/16 at 12:51; Stop 04/12/16 at 12:52; Status DC Sodium Chloride 1,000 ml @ 1,000 mls/hr Q1H PRN IV hypotension; Start 04/12/16 at 16:27; Stop 04/12/16 at 22:26; Status DC Albumin Human (Albuminar) 200 ml @ 200 mls/hr 1X PRN PRN IV Hypotension Last administered on 04/12/16 17:21; Start 04/12/16 at 16:30; Stop 04/12/16 at 22:29 ; Status DC Midodrine (Proamatine) 5 mg 1X ONCE PO ; Start 04/12/16 at 16:30; Stop at 16:34; Status DC Diphenhydramine HCl (Benadryl) 25 mg 1X PRN PRN IV ITCHING; Start 04/12/16 at 16:30; Stop 04/13/16 at 11:10; Status DC Diphenhydramine HCl (Benadryl) 25 mg 1X PRN PRN IV ITCHING; Start 04/12/16 at 16:30; Stop 04/13/16 at 11:10; Status DC Info 1 each 1 each PRN DAILY PRN MC SEE COMMENTS; Start 04/12/16 at 16:30; Status UNV Sodium Chloride 1,000 ml @ 15 mls/hr Q24H IV Last administered on 04/12/16 18 :14; Start 04/12/16 at 14:00; Stop 04/14/16 at 13:11; Status DC Sodium Chloride 250 ml @ 250 mls/hr 1X ONCE IV Last administered on 22:34; Start 04/12/16 at 22:30; Stop 04/12/16 at 23:29; Status DC Sodium Chloride 1,000 ml @ 75 mls/hr [id number] IV Last administered on 21:31; Start 04/13/16 at 09:30; Stop 04/14/16 at 13:11; Status DC Sodium Chloride 1,000 ml @ 1,000 mls/hr 1X ONCE IV Last administered on 10:10; Start 04/13/16 at 09:30; Stop 04/13/16 at 10:29; Status DC Amino Acids/ Glycerin/ Electrolytes 1,000 ml @ 80 mls/hr [id number] IV Last administered on 04/16/16 00:13; Start 04/13/16 at 10:00 Magnesium Sulfate/ Dextrose 50 ml @ 25 mls/hr 1X ONCE IV Last administered on 04/13/16 14:35; Start 04/13/16 at 15:00; Stop 04/13/16 at 16:59; Status DC Sodium Chloride (Iv Sodium Chloride 0.9% 1000ml Bag) 1,000 ml @ 1,000 mls/hr Q1H PRN IV hypotension; Start 04/14/16 at 08:13; Stop 04/14/16 at 14:12; Status DC Diphenhydramine HCl (Benadryl) 25 mg 1X PRN PRN IV ITCHING; Start 04/14/16 at 08:15; Stop 04/15/16 at 08:14; Status DC Diphenhydramine HCl (Benadryl) 25 mg 1X PRN PRN IV ITCHING; Start 04/14/16 at 08:15; Stop 04/15/16 at 08:14; Status DC Sodium Chloride (Normal Saline Flush) 10 ml 1X PRN PRN IV AP catheter pack; Start 04/14/16 at 08:15; Stop 04/15/16 at 08:14; Status DC Sodium Chloride 10 ml 10 ml 1X PRN PRN IV [employer] catheter pack; Start 04/14/16 at 08:15; Stop 04/15/16 at 08:14; Status DC Sodium Chloride (Iv Sodium Chloride 0.9% 1000ml Bag) 1,000 ml @ 400 mls/hr Q2H30M PRN IV PATENCY; Start 04/14/16 at 08:13; Stop 04/14/16 at 20:12; Status DC Info (PHARMACY MONITORING -- do not chart) 1 each PRN DAILY PRN MC SEE COMMENTS ; Start 04/14/16 at 08:15; Stop 04/14/16 at 08:20; Status DC Darbepoetin Manuel 60 mcg 60 mcg [id number] SQ Last administered on 04/14/16 20:46 ; Start 04/14/16 at 21:00 Magnesium Sulfate/ Dextrose (Magnesium Sulfate PREMIX 2GM) 50 ml @ 25 mls/hr PRN DAILY PRN IV for Mag < 1.7 on am labs; Start 04/14/16 at 09:30 Metoprolol Tartrate 2.5 mg 2.5 mg Q6HRS IVP Last administered on 04/16/16 05: 23; Start 04/14/16 at 11:30 Sodium Chloride 1,000 ml @ 1,000 mls/hr Q1H PRN IV hypotension; Start 04/15/16 at 07:30; Stop 04/15/16 at 13:29; Status DC Sodium Chloride (Iv Sodium Chloride 0.9% 1000ml Bag) 1,000 ml @ 400 mls/hr Q2H30M PRN IV PATENCY; Start 04/15/16 at 07:30; Stop 04/15/16 at 19:29; Status DC Info (PHARMACY MONITORING -- do not chart) 1 each PRN DAILY PRN MC SEE COMMENTS ; Start 04/15/16 at 09:15; Status UNV Famotidine 20 mg 20 mg Q48H IVP ; Start 04/16/16 at 09:00 Sodium Chloride 1,000 ml @ 1,000 mls/hr Q1H PRN IV hypotension; Start 04/16/16 at 07:37; Stop 04/16/16 at 13:36 Albumin Human (Albuminar) 200 ml @ 200 mls/hr 1X PRN PRN IV Hypotension; Start 04/16/16 at 07:45; Stop 04/16/16 at 13:44 Info (PHARMACY MONITORING -- do not chart) 1 each PRN DAILY PRN MC SEE COMMENTS ; Start 04/16/16 at 07:45; Status UNV Info (PHARMACY MONITORING -- do not chart) 1 each PRN DAILY PRN MC SEE COMMENTS ; Start 04/16/16 at 07:45; Status UNV Active Scripts Active Reported Chlorthalidone 25 Mg Tablet 1 Tab PO DAILY Magnesium (Magnesium Oxide) 250 Mg Tablet 250 Mg PO DAILY Glimepiride 4 Mg Tablet 1 Tab PO BID Proair Hfa Inhaler (Albuterol Sulfate) 8.5 Gm Hfa.aer.ad 1 Puff INH PRN Q6HRS PRN Chlorthalidone 25 Mg Tablet 1 Tab PO DAILY Lisinopril 5 Mg Tablet 1 Tab PO DAILY Crestor (Rosuvastatin Calcium) 20 Mg Tablet 1 Tab PO HS Gabapentin 300 Mg Capsule 300 Mg PO HS Multi Vitamin Daily (Multivitamin) 1 Each Tablet 1 Each PO DAILY Bumetanide 2 Mg Tablet 2 Mg PO DAILY Aspirin Ec (Aspirin) 81 Mg Tablet.dr 81 Mg PO DAILY Potassium Chloride 20 Meq Tab.er.prt 20 Meq PO DAILY Vitals/I & O Vital Sign - Last 24 Hours 04/15/16 04/15/16 04/15/16 04/15/16 10:00 11:00 12:00 12:00 Pulse 114 114 120 Resp 24 24 24 B/P 120/74 137/84 137/71 O2 Delivery Nasal Cannula Nasal Cannula Nasal Cannula Room Air O2 Flow Rate 2.0 2.0 2.0 2.0 2/04/15/16 04/15/16 04/15/16 12:18 13:00 14:00 14:55 Pulse 119 114 118 Resp 24 B/P 137/71 117/59 116/88 Pulse Ox 96 O2 Delivery Nasal Cannula Nasal Cannula Room Air O2 Flow Rate 2.0 2.0 04/15/16 04/15/16 04/15/16 04/15/16 15:00 16:00 16:00 17:00 Pulse 118 122 120 Resp 24 B/P 120/61 122/60 129/59 O2 Delivery Nasal Cannula Nasal Cannula Room Air Nasal Cannula O2 Flow Rate 2.0 2.0 2.0 2.0 04/15/16 04/15/16 04/15/16 04/15/16 17:35 18:00 19:00 20:00 Temp 97.8 101.1 97.8 101.1 Pulse 122 114 120 Resp 24 30 B/P 124/51 100/47 103/48 Pulse Ox 99 O2 Delivery Nasal Cannula Nasal Cannula Room Air O2 Flow Rate 2.0 2.0 2.0 04/15/16 04/15/16 04/15/16 04/15/16 20:00 21:00 22:00 23:00 Temp 101.2 99.7 101.2 99.7 Pulse 115 114 110 110 Resp 25 B/P 133/75 115/56 119/57 117/57 Pulse Ox 94 99 97 100 O2 Delivery Nasal Cannula Nasal Cannula Nasal Cannula Nasal Cannula O2 Flow Rate 2.0 2.0 2.0 2.0 04/15/16 04/16/16 04/16/16 04/16/16 23:45 00:00 00:00 00:23 Pulse 109 Resp 24 22 B/P 99/62 102/50 Pulse Ox 95 96 O2 Delivery Room Air Nasal Cannula Nasal Cannula O2 Flow Rate 2.0 2.0 2.0 04/16/16 04/16/16 04/16/16 04/16/16 01:00 01:04 02:00 03:00 Pulse 107 118 109 Resp 22 24 B/P 100/54 101/61 112/61 Pulse Ox 99 94 100 O2 Delivery Nasal Cannula Nasal Cannula Room Air O2 Flow Rate 2.0 2.0 04/16/16 04/16/16 04/16/16 04/16/16 04:00 04:12 05:00 05:23 Temp 98.4 98.4 Pulse 105 112 112 Resp 22 22 B/P 115/65 103/50 103/50 Pulse Ox 100 97 O2 Delivery Room Air Room Air Room Air 04/16/16 06:00 Pulse 106 Resp 15 B/P 100/50 Pulse Ox 96 O2 Delivery Room Air Intake and Output 04/15/16 04/15/16 04/16/16 15:00 23:00 07:00 Intake Total 50 ml 1892 ml Output Total 0 ml Balance 50 ml 1892 ml CONNER WALTON MD Apr 16, 2016 09:58
--- NOTE | 2016-04-16 11:04 | PDOC ---
Provider Note Provider Note 04/16/2016 0940 Sinus tach with no rhythm ectopies. Still awaiting [facility] records. Device interrogation with normal device function, optivol elevated ongoing since 02/22/2016 indicating continued CHF. 5 episodes of NSVT with no treatment events, 10 yrs battery life Will reevaluate tomorrow once records are obtained and reviewed for any further recommendation. MARILU AMADOR APRN Apr 16, 2016 11:04
--- NOTE | 2016-04-16 11:14 | PDOC ---
Objective: Objective: Per RN - pt reports pain when touched, confused (has answered "4 years ago" to some questions). On PPN since pulled out Dobhoff Mon night. Vital Signs: Vital Signs Date Time Temp Pulse Resp B/P Pulse Ox O2 Delivery O2 Flow Rate FiO2 04/16/16 10:00 108 18 128/64 96 Room Air 04/16/16 07:00 98.0 98.0 04/16/16 02:00 2.0 Labs: Laboratory Tests Test 04/15/16 12:33 04/15/16 17:32 04/15/16 22:10 Glucose (Fingerstick) 111mg/dL (70-99) 120mg/dL (70-99) 138mg/dL (70-99) PE: GEN: NAD, dialyzing LUNGS: CTAB HEART: tachycardic ABD: BS+, soft, obese, non-tender NEURO/PSYCH: does not respond A/P: Elevated LFTs -w/ septic shock -bili worse, transaminases improved -Hepatitis panel neg, INR 2.1 to 1.9 Encephalopathy CHF, CKD Anemia, thrombocytopenia -- Plans to restart tube feeds. Will check abd US. HANS CHASE Apr 16, 2016 11:14
--- NOTE | 2016-04-16 11:18 | PDOC ---
Renal-Progress Notes Subjective Notes Notes CONFUSED History of Present Illness Hx of present illness NO CHANGE Vitals Vitals Vital Signs Date Time Temp Pulse Resp B/P Pulse Ox O2 Delivery O2 Flow Rate FiO2 04/16/16 10:00 108 18 128/64 96 Room Air 04/16/16 07:00 98.0 98.0 04/16/16 02:00 2.0 Weight Weight [ ] I.O. Intake and Output Intake and Output 04/16/16 06:59 Intake Total 1942 ml Output Total 0 ml Balance 1942 ml IV Total 1942 ml Output Urine Total 0 ml Labs Labs Laboratory Tests Test 04/15/16 12:33 04/15/16 17:32 04/15/16 22:10 04/16/16 05:15 Glucose (Fingerstick) 111mg/dL (70-99) 120mg/dL (70-99) 138mg/dL (70-99) White Blood Count 18.5x10^3/uL (4.0-11.0) Red Blood Count 2.90x10^6/uL (3.50-5.40) Hemoglobin 8.8g/dL (12.0-15.5) Hematocrit 27.1% (36.0-47.0) Mean Corpuscular Volume 93fL (79-100) Mean Corpuscular Hemoglobin 30pg (25-35) Mean Corpuscular Hemoglobin Concent 32g/dL (31-37) Red Cell Distribution Width 16.4% (11.5-14.5) Platelet Count 109x10^3/uL (140-400) Neutrophils (%) (Auto) 79% (31-73) Lymphocytes (%) (Auto) 9% (24-48) Monocytes (%) (Auto) 8% (0-9) Eosinophils (%) (Auto) 3% (0-3) Basophils (%) (Auto) 1% (0-3) Neutrophils # (Auto) 14.6x10^3uL (1.8-7.7) Lymphocytes # (Auto) 1.7x10^3/uL (1.0-4.8) Monocytes # (Auto) 1.5x10^3/uL (0.0-1.1) Eosinophils # (Auto) 0.5x10^3/uL (0.0-0.7) Basophils # (Auto) 0.1x10^3/uL (0.0-0.2) Prothrombin Time 20.4SEC (11.7-14.0) Prothromb Time International Ratio 1.9 (0.8-1.1) Sodium Level 136mmol/L (136-145) Potassium Level 4.3mmol/L (3.5-5.1) Chloride Level 99mmol/L (98-107) Carbon Dioxide Level 26mmol/L (21-32) Anion Gap 11 (6-14) Blood Urea Nitrogen 36mg/dL (7-20) Creatinine 3.2mg/dL (0.6-1.0) Estimated GFR (Cockcroft-Gault) 15.1 Glucose Level 181mg/dL (70-99) Calcium Level 8.3mg/dL (8.5-10.1) Phosphorus Level 2.8mg/dL (2.6-4.7) Magnesium Level 2.1mg/dL (1.8-2.4) Total Bilirubin 4.6mg/dL (0.2-1.0) Direct Bilirubin 3.4mg/dL (0.0-0.2) Aspartate Amino Transf (AST/SGOT) 713U/L (15-37) Alanine Aminotransferase (ALT/SGPT) 1875U/L (14-59) Alkaline Phosphatase 86U/L (46-116) Creatine Kinase 122U/L (26-192) Total Protein 5.1g/dL (6.4-8.2) Albumin 1.8g/dL (3.4-5.0) Micro Micro Microbiology 04/13/16 Blood Culture - Preliminary, Resulted NO GROWTH AFTER 2 DAYS Review of Systems Constitutional: yes: no symptom reported Physical Exam General Appearance: no apparent distress Skin: warm Respiratory: decreased breath sounds Heart: S1S2 Abdomen: soft, bowel sounds present Genitourinary: bladder flat Extremities: pulses present Neurology: non-verbal, other (lethargic) Assessment Assessment IMP MET ENCEPHALOPATHY ANEMIA ESRD PLAN HD TODAY UF TO DW CONT TF WILL FOLLOW RITU PARSON MD Apr 16, 2016 11:18
--- NOTE | 2016-04-16 11:41 | PDOC ---
PULMONARY PROGRESS NOTES Subjective PT UNRESPONSIVE Vitals Vital Signs Date Time Temp Pulse Resp B/P Pulse Ox O2 Delivery O2 Flow Rate FiO2 04/16/16 10:00 108 18 128/64 96 Room Air 04/16/16 07:00 98.0 98.0 04/16/16 02:00 2.0 General: Lethargic Lungs: Clear Cardiovascular: S1, S2 Abdomen: Soft, Non-tender Extremities: No Edema Skin: Warm Labs Laboratory Tests Test 04/14/16 18:02 04/14/16 22:32 04/15/16 06:20 04/15/16 08:35 Glucose (Fingerstick) 122mg/dL (70-99) 125mg/dL (70-99) 131mg/dL (70-99) White Blood Count 13.9x10^3/uL (4.0-11.0) Red Blood Count 2.77x10^6/uL (3.50-5.40) Hemoglobin 8.3g/dL (12.0-15.5) Hematocrit 25.8% (36.0-47.0) Mean Corpuscular Volume 93fL (79-100) Mean Corpuscular Hemoglobin 30pg (25-35) Mean Corpuscular Hemoglobin Concent 32g/dL (31-37) Red Cell Distribution Width 15.9% (11.5-14.5) Platelet Count 71x10^3/uL (140-400) Neutrophils (%) (Auto) 83% (31-73) Lymphocytes (%) (Auto) 9% (24-48) Monocytes (%) (Auto) 6% (0-9) Eosinophils (%) (Auto) 2% (0-3) Basophils (%) (Auto) 0% (0-3) Neutrophils # (Auto) 11.5x10^3uL (1.8-7.7) Lymphocytes # (Auto) 1.2x10^3/uL (1.0-4.8) Monocytes # (Auto) 0.8x10^3/uL (0.0-1.1) Eosinophils # (Auto) 0.3x10^3/uL (0.0-0.7) Basophils # (Auto) 0.1x10^3/uL (0.0-0.2) Platelet Estimate Decreased (ADEQUATE) Large Platelets Present Prothrombin Time 22.5SEC (11.7-14.0) Prothromb Time International Ratio 2.1 (0.8-1.1) Sodium Level 139mmol/L (136-145) Potassium Level 4.4mmol/L (3.5-5.1) Chloride Level 101mmol/L (98-107) Carbon Dioxide Level 26mmol/L (21-32) Anion Gap 12 (6-14) Blood Urea Nitrogen 40mg/dL (7-20) Creatinine 3.6mg/dL (0.6-1.0) Estimated GFR (Cockcroft-Gault) 13.2 Glucose Level 148mg/dL (70-99) Calcium Level 7.9mg/dL (8.5-10.1) Phosphorus Level 3.5mg/dL (2.6-4.7) Magnesium Level 2.0mg/dL (1.8-2.4) Total Bilirubin 4.2mg/dL (0.2-1.0) Direct Bilirubin 2.9mg/dL (0.0-0.2) Aspartate Amino Transf (AST/SGOT) 1584U/L (15-37) Alanine Aminotransferase (ALT/SGPT) 2745U/L (14-59) Alkaline Phosphatase 104U/L (46-116) Creatine Kinase 240U/L (26-192) Total Protein 5.5g/dL (6.4-8.2) Albumin 2.0g/dL (3.4-5.0) Test 04/15/16 09:00 04/15/16 12:33 04/15/16 17:32 04/15/16 22:10 Ammonia < 10mcmol/L (11-34) Glucose (Fingerstick) 111mg/dL (70-99) 120mg/dL (70-99) 138mg/dL (70-99) Test 04/16/16 05:15 White Blood Count 18.5x10^3/uL (4.0-11.0) Red Blood Count 2.90x10^6/uL (3.50-5.40) Hemoglobin 8.8g/dL (12.0-15.5) Hematocrit 27.1% (36.0-47.0) Mean Corpuscular Volume 93fL (79-100) Mean Corpuscular Hemoglobin 30pg (25-35) Mean Corpuscular Hemoglobin Concent 32g/dL (31-37) Red Cell Distribution Width 16.4% (11.5-14.5) Platelet Count 109x10^3/uL (140-400) Neutrophils (%) (Auto) 79% (31-73) Lymphocytes (%) (Auto) 9% (24-48) Monocytes (%) (Auto) 8% (0-9) Eosinophils (%) (Auto) 3% (0-3) Basophils (%) (Auto) 1% (0-3) Neutrophils # (Auto) 14.6x10^3uL (1.8-7.7) Lymphocytes # (Auto) 1.7x10^3/uL (1.0-4.8) Monocytes # (Auto) 1.5x10^3/uL (0.0-1.1) Eosinophils # (Auto) 0.5x10^3/uL (0.0-0.7) Basophils # (Auto) 0.1x10^3/uL (0.0-0.2) Prothrombin Time 20.4SEC (11.7-14.0) Prothromb Time International Ratio 1.9 (0.8-1.1) Sodium Level 136mmol/L (136-145) Potassium Level 4.3mmol/L (3.5-5.1) Chloride Level 99mmol/L (98-107) Carbon Dioxide Level 26mmol/L (21-32) Anion Gap 11 (6-14) Blood Urea Nitrogen 36mg/dL (7-20) Creatinine 3.2mg/dL (0.6-1.0) Estimated GFR (Cockcroft-Gault) 15.1 Glucose Level 181mg/dL (70-99) Calcium Level 8.3mg/dL (8.5-10.1) Phosphorus Level 2.8mg/dL (2.6-4.7) Magnesium Level 2.1mg/dL (1.8-2.4) Total Bilirubin 4.6mg/dL (0.2-1.0) Direct Bilirubin 3.4mg/dL (0.0-0.2) Aspartate Amino Transf (AST/SGOT) 713U/L (15-37) Alanine Aminotransferase (ALT/SGPT) 1875U/L (14-59) Alkaline Phosphatase 86U/L (46-116) Creatine Kinase 122U/L (26-192) Total Protein 5.1g/dL (6.4-8.2) Albumin 1.8g/dL (3.4-5.0) Laboratory Tests Test 04/15/16 12:33 04/15/16 17:32 04/15/16 22:10 04/16/16 05:15 Glucose (Fingerstick) 111mg/dL (70-99) 120mg/dL (70-99) 138mg/dL (70-99) White Blood Count 18.5x10^3/uL (4.0-11.0) Red Blood Count 2.90x10^6/uL (3.50-5.40) Hemoglobin 8.8g/dL (12.0-15.5) Hematocrit 27.1% (36.0-47.0) Mean Corpuscular Volume 93fL (79-100) Mean Corpuscular Hemoglobin 30pg (25-35) Mean Corpuscular Hemoglobin Concent 32g/dL (31-37) Red Cell Distribution Width 16.4% (11.5-14.5) Platelet Count 109x10^3/uL (140-400) Neutrophils (%) (Auto) 79% (31-73) Lymphocytes (%) (Auto) 9% (24-48) Monocytes (%) (Auto) 8% (0-9) Eosinophils (%) (Auto) 3% (0-3) Basophils (%) (Auto) 1% (0-3) Neutrophils # (Auto) 14.6x10^3uL (1.8-7.7) Lymphocytes # (Auto) 1.7x10^3/uL (1.0-4.8) Monocytes # (Auto) 1.5x10^3/uL (0.0-1.1) Eosinophils # (Auto) 0.5x10^3/uL (0.0-0.7) Basophils # (Auto) 0.1x10^3/uL (0.0-0.2) Prothrombin Time 20.4SEC (11.7-14.0) Prothromb Time International Ratio 1.9 (0.8-1.1) Sodium Level 136mmol/L (136-145) Potassium Level 4.3mmol/L (3.5-5.1) Chloride Level 99mmol/L (98-107) Carbon Dioxide Level 26mmol/L (21-32) Anion Gap 11 (6-14) Blood Urea Nitrogen 36mg/dL (7-20) Creatinine 3.2mg/dL (0.6-1.0) Estimated GFR (Cockcroft-Gault) 15.1 Glucose Level 181mg/dL (70-99) Calcium Level 8.3mg/dL (8.5-10.1) Phosphorus Level 2.8mg/dL (2.6-4.7) Magnesium Level 2.1mg/dL (1.8-2.4) Total Bilirubin 4.6mg/dL (0.2-1.0) Direct Bilirubin 3.4mg/dL (0.0-0.2) Aspartate Amino Transf (AST/SGOT) 713U/L (15-37) Alanine Aminotransferase (ALT/SGPT) 1875U/L (14-59) Alkaline Phosphatase 86U/L (46-116) Creatine Kinase 122U/L (26-192) Total Protein 5.1g/dL (6.4-8.2) Albumin 1.8g/dL (3.4-5.0) Medications Active Scripts Medications Dose Route/Sig Days Date Category Chlorthalidone 25 Mg Tablet 1 Tab PO DAILY 04/12/16 Reported Magnesium (Magnesium Oxide) 250 Mg Tablet 250 Mg PO DAILY 04/12/16 Reported Glimepiride 4 Mg Tablet 1 Tab PO BID 04/12/16 Reported Proair Hfa Inhaler (Albuterol Sulfate) 8.5 Gm Hfa.aer.ad 1 Puff INH PRN Q6HRS PRN 04/12/16 Reported Chlorthalidone 25 Mg Tablet 1 Tab PO DAILY 04/12/16 Reported Lisinopril 5 Mg Tablet 1 Tab PO DAILY 04/12/16 Reported Crestor (Rosuvastatin Calcium) 20 Mg Tablet 1 Tab PO HS 04/12/16 Reported Gabapentin 300 Mg Capsule 300 Mg PO HS 04/12/16 Reported Multi Vitamin Daily (Multivitamin) 1 Each Tablet 1 Each PO DAILY 03/18/13 Reported Bumetanide 2 Mg Tablet 2 Mg PO DAILY 03/18/13 Reported Aspirin Ec (Aspirin) 81 Mg Tablet.dr 81 Mg PO DAILY 03/18/13 Reported Potassium Chloride 20 Meq Tab.er.prt 20 Meq PO DAILY 03/18/13 Reported Impression . 1. Acute respiratory failure secondary to sepsis. 2. Septic shock. 4. Toxic metabolic encephalopathy. 5. Acute on chronic renal failure. 6. Thrombocytopenia. 7. Elevated liver chemistries secondary to sepsis. 8. Non-ST segment elevation myocardial infarction. 9. Multiorgan failure secondary to sepsis. Plan . WILL CONTINUE SUPPORT RESP STATUS IS COMPENSATE PT MORE AWAKE PRN BIPAP NEURO CONSULTED APPRECIATE DR URBAN INPUT DVT AND GI PROPH START TUBE FEEDING ALLAN WAHL MD Apr 16, 2016 11:41
[2016-04-16] MEDS: NYSTATIN TOPICAL POWDER 15GM BOTTLE. TP SCH ×2 (12:08→21:28)
--- NOTE | 2016-04-16 13:08 | PDOC ---
PROGRESS NOTES Chief Complaint Chief Complaint A/P 1. shock, POA,likely cardiogenic, sepsis less likely 2. [id number] congestive heart failure. 3. Elevated LFTs, possible due to shock POA 4. Elevated troponin POA 5. Elevated D dimer POA 6. Metabolic encephalopathy POA 7. Renal failure POA 8. Respiratory failure hypoxic 9. anemia 10. thrombocytopenia Plan OFF Levophed gtt, MAP > 65. on PPN Blood cx NEG so far CT head neg US showed left nephrectomy echo pEF 20% INR better, 1.9 Hematology consult ed Broad spectrum abx, ID following, on Zosyn, No source of external infection Intake and out, on metoprolol 2.5mg iv q6h HD per Nephrology d/w GI Prognosis poor/ guarded, cc time 35 min. pulm consulted History of Present Illness History of Present Illness very lethargic, slightly better on 04/16, can squeeze my hand a little bit better LFT bp better on low dose levaphed, now off pressors on night of 04/14 on HD now low urine output EF 20% with ICD, waiting for old records higher WBC Vitals Vitals Vital Signs Date Time Temp Pulse Resp B/P Pulse Ox O2 Delivery O2 Flow Rate FiO2 04/16/16 12:38 115 145/72 04/16/16 12:00 Room Air 04/16/16 11:00 20 96 04/16/16 07:00 98.0 98.0 04/16/16 02:00 2.0 Physical Exam Physical Exam lethargic, aaox0, no answer question, but can squeeze my hands a little bit Heart: Regular rate, Normal S1, Normal S2, No murmurs, Gallops Lungs: Clear Abdomen: Normal bowel sounds, Soft, No tenderness, No hepatosplenomegaly, No masses Extremities: No clubbing, No cyanosis, No edema, Normal pulses, No tenderness/ swelling Labs LABS Laboratory Tests Test 04/15/16 17:32 04/15/16 22:10 04/16/16 05:15 04/16/16 12:41 Glucose (Fingerstick) 120mg/dL (70-99) 138mg/dL (70-99) 128mg/dL (70-99) White Blood Count 18.5x10^3/uL (4.0-11.0) Red Blood Count 2.90x10^6/uL (3.50-5.40) Hemoglobin 8.8g/dL (12.0-15.5) Hematocrit 27.1% (36.0-47.0) Mean Corpuscular Volume 93fL (79-100) Mean Corpuscular Hemoglobin 30pg (25-35) Mean Corpuscular Hemoglobin Concent 32g/dL (31-37) Red Cell Distribution Width 16.4% (11.5-14.5) Platelet Count 109x10^3/uL (140-400) Neutrophils (%) (Auto) 79% (31-73) Lymphocytes (%) (Auto) 9% (24-48) Monocytes (%) (Auto) 8% (0-9) Eosinophils (%) (Auto) 3% (0-3) Basophils (%) (Auto) 1% (0-3) Neutrophils # (Auto) 14.6x10^3uL (1.8-7.7) Lymphocytes # (Auto) 1.7x10^3/uL (1.0-4.8) Monocytes # (Auto) 1.5x10^3/uL (0.0-1.1) Eosinophils # (Auto) 0.5x10^3/uL (0.0-0.7) Basophils # (Auto) 0.1x10^3/uL (0.0-0.2) Prothrombin Time 20.4SEC (11.7-14.0) Prothromb Time International Ratio 1.9 (0.8-1.1) Sodium Level 136mmol/L (136-145) Potassium Level 4.3mmol/L (3.5-5.1) Chloride Level 99mmol/L (98-107) Carbon Dioxide Level 26mmol/L (21-32) Anion Gap 11 (6-14) Blood Urea Nitrogen 36mg/dL (7-20) Creatinine 3.2mg/dL (0.6-1.0) Estimated GFR (Cockcroft-Gault) 15.1 Glucose Level 181mg/dL (70-99) Calcium Level 8.3mg/dL (8.5-10.1) Phosphorus Level 2.8mg/dL (2.6-4.7) Magnesium Level 2.1mg/dL (1.8-2.4) Total Bilirubin 4.6mg/dL (0.2-1.0) Direct Bilirubin 3.4mg/dL (0.0-0.2) Aspartate Amino Transf (AST/SGOT) 713U/L (15-37) Alanine Aminotransferase (ALT/SGPT) 1875U/L (14-59) Alkaline Phosphatase 86U/L (46-116) Creatine Kinase 122U/L (26-192) Total Protein 5.1g/dL (6.4-8.2) Albumin 1.8g/dL (3.4-5.0) Review of Systems Review of Systems no fever, chills, sob or chest pain Comment Review of Relevant I have reviewed the following items nelda (where applicable) has been applied. Labs Laboratory Tests Test 04/14/16 18:02 04/14/16 22:32 04/15/16 06:20 04/15/16 08:35 Glucose (Fingerstick) 122mg/dL (70-99) 125mg/dL (70-99) 131mg/dL (70-99) White Blood Count 13.9x10^3/uL (4.0-11.0) Red Blood Count 2.77x10^6/uL (3.50-5.40) Hemoglobin 8.3g/dL (12.0-15.5) Hematocrit 25.8% (36.0-47.0) Mean Corpuscular Volume 93fL (79-100) Mean Corpuscular Hemoglobin 30pg (25-35) Mean Corpuscular Hemoglobin Concent 32g/dL (31-37) Red Cell Distribution Width 15.9% (11.5-14.5) Platelet Count 71x10^3/uL (140-400) Neutrophils (%) (Auto) 83% (31-73) Lymphocytes (%) (Auto) 9% (24-48) Monocytes (%) (Auto) 6% (0-9) Eosinophils (%) (Auto) 2% (0-3) Basophils (%) (Auto) 0% (0-3) Neutrophils # (Auto) 11.5x10^3uL (1.8-7.7) Lymphocytes # (Auto) 1.2x10^3/uL (1.0-4.8) Monocytes # (Auto) 0.8x10^3/uL (0.0-1.1) Eosinophils # (Auto) 0.3x10^3/uL (0.0-0.7) Basophils # (Auto) 0.1x10^3/uL (0.0-0.2) Platelet Estimate Decreased (ADEQUATE) Large Platelets Present Prothrombin Time 22.5SEC (11.7-14.0) Prothromb Time International Ratio 2.1 (0.8-1.1) Sodium Level 139mmol/L (136-145) Potassium Level 4.4mmol/L (3.5-5.1) Chloride Level 101mmol/L (98-107) Carbon Dioxide Level 26mmol/L (21-32) Anion Gap 12 (6-14) Blood Urea Nitrogen 40mg/dL (7-20) Creatinine 3.6mg/dL (0.6-1.0) Estimated GFR (Cockcroft-Gault) 13.2 Glucose Level 148mg/dL (70-99) Calcium Level 7.9mg/dL (8.5-10.1) Phosphorus Level 3.5mg/dL (2.6-4.7) Magnesium Level 2.0mg/dL (1.8-2.4) Total Bilirubin 4.2mg/dL (0.2-1.0) Direct Bilirubin 2.9mg/dL (0.0-0.2) Aspartate Amino Transf (AST/SGOT) 1584U/L (15-37) Alanine Aminotransferase (ALT/SGPT) 2745U/L (14-59) Alkaline Phosphatase 104U/L (46-116) Creatine Kinase 240U/L (26-192) Total Protein 5.5g/dL (6.4-8.2) Albumin 2.0g/dL (3.4-5.0) Test 04/15/16 09:00 04/15/16 12:33 04/15/16 17:32 04/15/16 22:10 Ammonia < 10mcmol/L (11-34) Glucose (Fingerstick) 111mg/dL (70-99) 120mg/dL (70-99) 138mg/dL (70-99) Test 04/16/16 05:15 04/16/16 12:41 White Blood Count 18.5x10^3/uL (4.0-11.0) Red Blood Count 2.90x10^6/uL (3.50-5.40) Hemoglobin 8.8g/dL (12.0-15.5) Hematocrit 27.1% (36.0-47.0) Mean Corpuscular Volume 93fL (79-100) Mean Corpuscular Hemoglobin 30pg (25-35) Mean Corpuscular Hemoglobin Concent 32g/dL (31-37) Red Cell Distribution Width 16.4% (11.5-14.5) Platelet Count 109x10^3/uL (140-400) Neutrophils (%) (Auto) 79% (31-73) Lymphocytes (%) (Auto) 9% (24-48) Monocytes (%) (Auto) 8% (0-9) Eosinophils (%) (Auto) 3% (0-3) Basophils (%) (Auto) 1% (0-3) Neutrophils # (Auto) 14.6x10^3uL (1.8-7.7) Lymphocytes # (Auto) 1.7x10^3/uL (1.0-4.8) Monocytes # (Auto) 1.5x10^3/uL (0.0-1.1) Eosinophils # (Auto) 0.5x10^3/uL (0.0-0.7) Basophils # (Auto) 0.1x10^3/uL (0.0-0.2) Prothrombin Time 20.4SEC (11.7-14.0) Prothromb Time International Ratio 1.9 (0.8-1.1) Sodium Level 136mmol/L (136-145) Potassium Level 4.3mmol/L (3.5-5.1) Chloride Level 99mmol/L (98-107) Carbon Dioxide Level 26mmol/L (21-32) Anion Gap 11 (6-14) Blood Urea Nitrogen 36mg/dL (7-20) Creatinine 3.2mg/dL (0.6-1.0) Estimated GFR (Cockcroft-Gault) 15.1 Glucose Level 181mg/dL (70-99) Calcium Level 8.3mg/dL (8.5-10.1) Phosphorus Level 2.8mg/dL (2.6-4.7) Magnesium Level 2.1mg/dL (1.8-2.4) Total Bilirubin 4.6mg/dL (0.2-1.0) Direct Bilirubin 3.4mg/dL (0.0-0.2) Aspartate Amino Transf (AST/SGOT) 713U/L (15-37) Alanine Aminotransferase (ALT/SGPT) 1875U/L (14-59) Alkaline Phosphatase 86U/L (46-116) Creatine Kinase 122U/L (26-192) Total Protein 5.1g/dL (6.4-8.2) Albumin 1.8g/dL (3.4-5.0) Glucose (Fingerstick) 128mg/dL (70-99) Laboratory Tests Test 04/15/16 17:32 04/15/16 22:10 04/16/16 05:15 04/16/16 12:41 Glucose (Fingerstick) 120mg/dL (70-99) 138mg/dL (70-99) 128mg/dL (70-99) White Blood Count 18.5x10^3/uL (4.0-11.0) Red Blood Count 2.90x10^6/uL (3.50-5.40) Hemoglobin 8.8g/dL (12.0-15.5) Hematocrit 27.1% (36.0-47.0) Mean Corpuscular Volume 93fL (79-100) Mean Corpuscular Hemoglobin 30pg (25-35) Mean Corpuscular Hemoglobin Concent 32g/dL (31-37) Red Cell Distribution Width 16.4% (11.5-14.5) Platelet Count 109x10^3/uL (140-400) Neutrophils (%) (Auto) 79% (31-73) Lymphocytes (%) (Auto) 9% (24-48) Monocytes (%) (Auto) 8% (0-9) Eosinophils (%) (Auto) 3% (0-3) Basophils (%) (Auto) 1% (0-3) Neutrophils # (Auto) 14.6x10^3uL (1.8-7.7) Lymphocytes # (Auto) 1.7x10^3/uL (1.0-4.8) Monocytes # (Auto) 1.5x10^3/uL (0.0-1.1) Eosinophils # (Auto) 0.5x10^3/uL (0.0-0.7) Basophils # (Auto) 0.1x10^3/uL (0.0-0.2) Prothrombin Time 20.4SEC (11.7-14.0) Prothromb Time International Ratio 1.9 (0.8-1.1) Sodium Level 136mmol/L (136-145) Potassium Level 4.3mmol/L (3.5-5.1) Chloride Level 99mmol/L (98-107) Carbon Dioxide Level 26mmol/L (21-32) Anion Gap 11 (6-14) Blood Urea Nitrogen 36mg/dL (7-20) Creatinine 3.2mg/dL (0.6-1.0) Estimated GFR (Cockcroft-Gault) 15.1 Glucose Level 181mg/dL (70-99) Calcium Level 8.3mg/dL (8.5-10.1) Phosphorus Level 2.8mg/dL (2.6-4.7) Magnesium Level 2.1mg/dL (1.8-2.4) Total Bilirubin 4.6mg/dL (0.2-1.0) Direct Bilirubin 3.4mg/dL (0.0-0.2) Aspartate Amino Transf (AST/SGOT) 713U/L (15-37) Alanine Aminotransferase (ALT/SGPT) 1875U/L (14-59) Alkaline Phosphatase 86U/L (46-116) Creatine Kinase 122U/L (26-192) Total Protein 5.1g/dL (6.4-8.2) Albumin 1.8g/dL (3.4-5.0) Microbiology 04/13/16 Blood Culture - Preliminary, Resulted NO GROWTH AFTER 3 DAYS Medications Current Medications Acetaminophen (Tylenol) 650 mg PRN Q6HRS PRN PO Headaches, Temp > 101.5'; Start 04/12/16 at 02:30 Ondansetron HCl (Zofran) 4 mg PRN Q6HRS PRN IV NAUSEA/VOMITING; Start 04/12/16 at 02:30 Famotidine (Pepcid) 20 mg BID IVP Last administered on 04/15/16t 08:46; Start 04/12/16 at 09:00; Stop 04/15/16 at 12:13; Status DC Info 1 ea DAILY MC ; Start 04/12/16 at 09:00 Fentanyl Citrate (Fentanyl 2ml Vial) 25 mcg PRN Q1HR PRN IV COMM Last administered on 04/15/16 14:55; Start 04/12/16 at 02:30 Fentanyl Citrate 50 mcg 50 mcg PRN Q1HR PRN IV COMM Last administered on 00:23; Start 04/12/16 at 02:30 Norepinephrine Bitartrate/Sodium Chloride (Levophed Vial/ Iv Sodium Chloride 0.9 % 250ml) 258 ml @ 0 mls/hr CONT PRN IV SEE I/O RECORD Last administered on 04/13 02:55; Start 04/12/16 at 02:30 Haloperidol Lactate (Haldol) 5 mg PRN Q6HRS PRN IVP AGITATION Last administered on 04/14/16 23:26; Start 04/12/16 at 02:30 Acetaminophen (Tylenol) 650 mg PRN Q6HRS PRN [place] MILD PAIN / TEMP Last administered on 04/15/16 19:55; Start 04/12/16 at 03:30 Nystatin (Nystop) 1 gabrielle BID TP Last administered on 04/16/16 12:08; Start 01/16 at 03:30 Insulin Aspart (Novolog) 0-9 UNITS TIDWMEALS SQ Last administered on 04/13/16 17:06; Start 04/12/16 at 08:00 Dextrose 12.5 gm PRN Q15MIN PRN IV SEE COMMENTS; Start 04/12/16 at 04:00 Info 1 each 1 each PRN DAILY PRN MC SEE COMMENTS; Start 04/12/16 at 06:30 Piperacillin Sod/ Tazobactam Sod 3.375 gm/Sodium Chloride 50 ml @ 100 mls/hr Q8HRS IV ; Start 04/12/16 at 14:00; Stop 04/12/16 at 14:00; Status DC Levofloxacin/ Dextrose 100 ml @ 100 mls/hr 1X ONCE IV Last administered on 08:48; Start 04/12/16 at 08:00; Stop 04/12/16 at 08:59; Status DC Ceftriaxone Sodium 1 gm/ Sodium Chloride 50 ml @ 100 mls/hr Q24H IV Last administered on 04/12/16 08:48; Start 04/12/16 at 09:00; Stop 04/12/16 at 10:25 ; Status DC Piperacillin Sod/ Tazobactam Sod/ Sodium Chloride (Zosyn/Iv Sodium Chloride 0.9 % 50ml) 50 ml @ 100 mls/hr Q8HRS IV Last administered on 04/16/16 05:22; Start 04/12/16 at 14:00 Lidocaine/Sodium Bicarbonate (Buffered Lidocaine 1%) 3 ml 1X ONCE IJ Last administered on 04/12/16 12:45; Start 04/12/16 at 12:45; Stop 04/12/16 at 12:47 ; Status DC Heparin Sodium/ Sodium Chloride 60 unit 1X ONCE IV Last administered on 12:45; Start 04/12/16 at 12:45; Stop 04/12/16 at 12:47; Status DC Heparin Sodium (Porcine) 2,500 unit 1X ONCE INT CAT Last administered on 12:45; Start 04/12/16 at 12:45; Stop 04/12/16 at 12:47; Status DC Heparin Sodium (Porcine) 68234 unit 10,000 unit STK-MED ONCE .ROUTE ; Start 01/16 at 12:51; Stop 04/12/16 at 12:52; Status DC Sodium Chloride 1,000 ml @ 1,000 mls/hr Q1H PRN IV hypotension; Start 04/12/16 at 16:27; Stop 04/12/16 at 22:26; Status DC Albumin Human (Albuminar) 200 ml @ 200 mls/hr 1X PRN PRN IV Hypotension Last administered on 04/12/16 17:21; Start 04/12/16 at 16:30; Stop 04/12/16 at 22:29 ; Status DC Midodrine (Proamatine) 5 mg 1X ONCE PO ; Start 04/12/16 at 16:30; Stop at 16:34; Status DC Diphenhydramine HCl (Benadryl) 25 mg 1X PRN PRN IV ITCHING; Start 04/12/16 at 16:30; Stop 04/13/16 at 11:10; Status DC Diphenhydramine HCl (Benadryl) 25 mg 1X PRN PRN IV ITCHING; Start 04/12/16 at 16:30; Stop 04/13/16 at 11:10; Status DC Info 1 each 1 each PRN DAILY PRN MC SEE COMMENTS; Start 04/12/16 at 16:30; Status UNV Sodium Chloride 1,000 ml @ 15 mls/hr Q24H IV Last administered on 04/12/16 18 :14; Start 04/12/16 at 14:00; Stop 04/14/16 at 13:11; Status DC Sodium Chloride 250 ml @ 250 mls/hr 1X ONCE IV Last administered on 22:34; Start 04/12/16 at 22:30; Stop 04/12/16 at 23:29; Status DC Sodium Chloride 1,000 ml @ 75 mls/hr [id number] IV Last administered on 21:31; Start 04/13/16 at 09:30; Stop 04/14/16 at 13:11; Status DC Sodium Chloride 1,000 ml @ 1,000 mls/hr 1X ONCE IV Last administered on 10:10; Start 04/13/16 at 09:30; Stop 04/13/16 at 10:29; Status DC Amino Acids/ Glycerin/ Electrolytes 1,000 ml @ 80 mls/hr [id number] IV Last administered on 04/16/16 12:38; Start 04/13/16 at 10:00 Magnesium Sulfate/ Dextrose 50 ml @ 25 mls/hr 1X ONCE IV Last administered on 04/13/16 14:35; Start 04/13/16 at 15:00; Stop 04/13/16 at 16:59; Status DC Sodium Chloride (Iv Sodium Chloride 0.9% 1000ml Bag) 1,000 ml @ 1,000 mls/hr Q1H PRN IV hypotension; Start 04/14/16 at 08:13; Stop 04/14/16 at 14:12; Status DC Diphenhydramine HCl (Benadryl) 25 mg 1X PRN PRN IV ITCHING; Start 04/14/16 at 08:15; Stop 04/15/16 at 08:14; Status DC Diphenhydramine HCl (Benadryl) 25 mg 1X PRN PRN IV ITCHING; Start 04/14/16 at 08:15; Stop 04/15/16 at 08:14; Status DC Sodium Chloride (Normal Saline Flush) 10 ml 1X PRN PRN IV AP catheter pack; Start 04/14/16 at 08:15; Stop 04/15/16 at 08:14; Status DC Sodium Chloride 10 ml 10 ml 1X PRN PRN IV CONSTRUCTION DRIVER catheter pack; Start 04/14/16 at 08:15; Stop 04/15/16 at 08:14; Status DC Sodium Chloride (Iv Sodium Chloride 0.9% 1000ml Bag) 1,000 ml @ 400 mls/hr Q2H30M PRN IV PATENCY; Start 04/14/16 at 08:13; Stop 04/14/16 at 20:12; Status DC Info (PHARMACY MONITORING -- do not chart) 1 each PRN DAILY PRN MC SEE COMMENTS ; Start 04/14/16 at 08:15; Stop 04/14/16 at 08:20; Status DC Darbepoetin Manuel 60 mcg 60 mcg [id number] SQ Last administered on 04/14/16t 20:46 ; Start 04/14/16 at 21:00 Magnesium Sulfate/ Dextrose (Magnesium Sulfate PREMIX 2GM) 50 ml @ 25 mls/hr PRN DAILY PRN IV for Mag < 1.7 on am labs; Start 04/14/16 at 09:30 Metoprolol Tartrate 2.5 mg 2.5 mg Q6HRS IVP Last administered on 04/16/16 12: 38; Start 04/14/16 at 11:30 Sodium Chloride 1,000 ml @ 1,000 mls/hr Q1H PRN IV hypotension; Start 04/15/16 at 07:30; Stop 04/15/16 at 13:29; Status DC Sodium Chloride (Iv Sodium Chloride 0.9% 1000ml Bag) 1,000 ml @ 400 mls/hr Q2H30M PRN IV PATENCY; Start 04/15/16 at 07:30; Stop 04/15/16 at 19:29; Status DC Info (PHARMACY MONITORING -- do not chart) 1 each PRN DAILY PRN MC SEE COMMENTS ; Start 04/15/16 at 09:15; Status UNV Famotidine 20 mg 20 mg Q48H IVP Last administered on 04/16/16 12:37; Start at 09:00 Sodium Chloride 1,000 ml @ 1,000 mls/hr Q1H PRN IV hypotension; Start 04/16/16 at 07:37; Stop 04/16/16 at 13:36 Albumin Human (Albuminar) 200 ml @ 200 mls/hr 1X PRN PRN IV Hypotension; Start 04/16/16 at 07:45; Stop 04/16/16 at 13:44 Info (PHARMACY MONITORING -- do not chart) 1 each PRN DAILY PRN MC SEE COMMENTS ; Start 04/16/16 at 07:45; Status UNV Info (PHARMACY MONITORING -- do not chart) 1 each PRN DAILY PRN MC SEE COMMENTS ; Start 04/16/16 at 07:45; Status UNV Active Scripts Active Reported Chlorthalidone 25 Mg Tablet 1 Tab PO DAILY Magnesium (Magnesium Oxide) 250 Mg Tablet 250 Mg PO DAILY Glimepiride 4 Mg Tablet 1 Tab PO BID Proair Hfa Inhaler (Albuterol Sulfate) 8.5 Gm Hfa.aer.ad 1 Puff INH PRN Q6HRS PRN Chlorthalidone 25 Mg Tablet 1 Tab PO DAILY Lisinopril 5 Mg Tablet 1 Tab PO DAILY Crestor (Rosuvastatin Calcium) 20 Mg Tablet 1 Tab PO HS Gabapentin 300 Mg Capsule 300 Mg PO HS Multi Vitamin Daily (Multivitamin) 1 Each Tablet 1 Each PO DAILY Bumetanide 2 Mg Tablet 2 Mg PO DAILY Aspirin Ec (Aspirin) 81 Mg Tablet.dr 81 Mg PO DAILY Potassium Chloride 20 Meq Tab.er.prt 20 Meq PO DAILY Vitals/I & O Vital Sign - Last 24 Hours 04/15/16 04/15/16 04/15/16 04/15/16 14:00 14:55 15:00 16:00 Pulse 118 118 122 Resp 24 24 24 24 B/P 116/88 120/61 122/60 Pulse Ox 96 O2 Delivery Nasal Cannula Room Air Nasal Cannula Nasal Cannula O2 Flow Rate 2.0 2.0 2.0 04/15/16 04/15/16 04/15/16 04/15/16 16:00 17:00 17:35 18:00 Temp 97.8 97.8 Pulse 120 122 114 Resp 24 24 B/P 129/59 124/51 100/47 O2 Delivery Room Air Nasal Cannula Nasal Cannula O2 Flow Rate 2.0 2.0 2.0 04/15/16 04/15/16 04/15/16 04/15/16 19:00 20:00 20:00 21:00 Temp 101.1 101.2 101.1 101.2 Pulse 120 115 114 Resp 30 20 B/P 103/48 133/75 115/56 Pulse Ox 99 94 99 O2 Delivery Nasal Cannula Room Air Nasal Cannula Nasal Cannula O2 Flow Rate 2.0 2.0 2.0 2.0 04/15/16 04/15/16 04/15/16 04/16/16 22:00 23:00 23:45 00:00 Temp 99.7 99.7 Pulse 110 110 Resp B/P 119/57 117/57 99/62 Pulse Ox 97 100 O2 Delivery Nasal Cannula Nasal Cannula Room Air O2 Flow Rate 2.0 2.0 2.0 04/16/16 04/16/16 04/16/16 04/16/16 00:00 00:23 01:00 01:04 Pulse 109 107 Resp B/P 102/50 100/54 Pulse Ox 95 96 99 O2 Delivery Nasal Cannula Nasal Cannula Nasal Cannula O2 Flow Rate 2.0 2.0 2.0 04/16/16 04/16/16 04/16/16 04/16/16 02:00 03:00 04:00 04:12 Temp 98.4 98.4 Pulse 118 109 105 Resp B/P 101/61 112/61 115/65 Pulse Ox 94 100 100 O2 Delivery Nasal Cannula Room Air Room Air Room Air O2 Flow Rate 2.0 04/16/16 04/16/16 04/16/16 04/16/16 05:00 05:23 06:00 07:00 Temp 98.0 98.0 Pulse 112 112 106 106 Resp 15 B/P 103/50 103/50 100/50 106/53 Pulse Ox 97 96 96 O2 Delivery Room Air Room Air Room Air 04/16/16 04/16/16 04/16/16 04/16/16 08:00 08:00 10:00 11:00 Pulse 104 108 104 Resp 18 20 B/P 91/48 128/64 116/69 Pulse Ox 96 96 96 O2 Delivery Room Air Room Air Room Air Room Air 04/16/16 04/16/16 12:00 12:38 Pulse 115 B/P 145/72 O2 Delivery Room Air Intake and Output 04/15/16 04/15/16 04/16/16 15:00 23:00 07:00 Intake Total 50 ml 1892 ml Output Total 0 ml Balance 50 ml 1892 ml LYNETTE MOSHER MD Apr 16, 2016 13:08
--- NOTE | 2016-04-16 15:28 | RAD ---
Right upper quadrant abdominal ultrasound, 04/16/2016: History: Jaundice, abnormal lab values The gallbladder is within normal limits in size. There is a small fold or partial septation. A 6 mm nonshadowing focus of increased echogenicity along the posterior wall of the gallbladder may be a polyp or adherent sludge. There is a small echogenic focus along the anterior wall the gallbladder, also without definite posterior acoustic shadowing. The common hepatic duct measures 7 mm which is considered to be mildly enlarged. No intrahepatic bile duct dilatation is seen. The liver is enlarged measuring 21 cm in craniocaudad extent. There is no evidence of a hepatic mass. The pancreas was obscured by overlying bowel. The renal parenchymal echogenicity appears to be mildly increased relative to the liver, however, this could be due to hepatic edema rather than abnormal renal parenchyma. IMPRESSION: 1. Small echogenic foci along the gallbladder alvarez suggesting a polyp and possible adenomyomatosis. No definite gallstones are seen. 2. Slightly enlarged common hepatic duct. 3. Hepatomegaly. 4. Obscuration of the common bile duct and pancreas due to overlying bowel. CT scanning may be useful for further evaluation, if clinically indicated.
[2016-04-17] VITALS: BP 104/50
[2016-04-17] MEDS: AA 3%/ELECTROLYTE-TPN SOLN/GLY 1,000 ML IV SCH
[2016-04-17 01:00] VITALS: BP 119/62
[2016-04-17 02:00] VITALS: BP 135/72
[2016-04-17 03:00] VITALS: BP 136/59
[2016-04-17 05:00] VITALS: BP 136/72
[2016-04-17] MEDS: PIPERACILLIN/TAZOBACTAM 2.25 GM in IV NORMAL SALINE 50ML 50 ML IV SCH (05:32)
[2016-04-17] MEDS: METOPROLOL TARTRATE 5 MG/5 ML VIAL. IVP SCH ×3 (05:32→12:00)
[2016-04-17 06:00] VITALS: BP 106/52
[2016-04-17 06:11] LABS: INR 1.9 (0.8-1.1); PROTHROMBIN TIME PATIENT 20.3 SEC (11.7-14.0)
[2016-04-17 06:16] LABS: ALBUMIN 2.1 g/dL (3.4-5.0); CALCIUM 8.4 mg/dL (8.5-10.1); CREATININE 3.2 mg/dL (0.6-1.0); GFR 15.1; PHOSPHORUS 2.9 mg/dL (2.6-4.7); POTASSIUM 4.7 mmol/L (3.5-5.1)
[2016-04-17 06:23] LABS: MAGNESIUM 2.1 mg/dL (1.8-2.4)
--- NOTE | 2016-04-17 07:31 | PDOC ---
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: Alert, oriented x 3, no focal neurologic deficit SKIN: No rash IV: ok Labs Lab Laboratory Tests Test 04/16/16 12:41 04/16/16 17:35 04/16/16 21:35 04/17/16 05:40 Glucose (Fingerstick) 128mg/dL (70-99) 157mg/dL (70-99) 157mg/dL (70-99) Prothrombin Time 20.3SEC (11.7-14.0) Prothromb Time International Ratio 1.9 (0.8-1.1) Sodium Level 138mmol/L (136-145) Potassium Level 4.7mmol/L (3.5-5.1) Chloride Level 100mmol/L (98-107) Carbon Dioxide Level 26mmol/L (21-32) Anion Gap 12 (6-14) Blood Urea Nitrogen 39mg/dL (7-20) Creatinine 3.2mg/dL (0.6-1.0) Estimated GFR (Cockcroft-Gault) 15.1 Glucose Level 206mg/dL (70-99) Calcium Level 8.4mg/dL (8.5-10.1) Phosphorus Level 2.9mg/dL (2.6-4.7) Magnesium Level 2.1mg/dL (1.8-2.4) Creatine Kinase 69U/L (26-192) Albumin 2.1g/dL (3.4-5.0) Micro culture neg Objective Assessment Sepsis with hypotension. Lactic acidosis, improving YAN on CKD. h/o nephrectomy. Now on HD Acute CHF. BNP > 350,000 ([facility]) Elevated LFTs Diabetes mellitus Type I Pacemaker/defibrillator Obesity Plan Plan of Care Zosyn One time dose vanc at [facility]. Hold further doses given renal function One time dose Levaquin 04/12. BC from [facility] NGTD f/u today's CMP & US Critically ill DRISS TANG MD Apr 17, 2016 07:31
[2016-04-17] MEDS: INSULIN ASPART 300 UNITS/3 ML INSULN.PEN SQ SCH ×2 (08:00→12:00)
[2016-04-17] MEDS: ELECTROLYTE (ICU) PROTOCOL. MC SCH (08:41)
--- NOTE | 2016-04-17 08:54 | RAD ---
Right breast ultrasound, 04/16/2016: History: Breast lump A targeted ultrasound exam was performed of the area of clinical concern at the 9-10 o'clock location in the right breast. There are several rounded masses with echogenic rims and dense posterior acoustic shadowing. The findings suggest calcified masses. A similar appearance was present on an outside ultrasound exam from 07/04/2013. Mammograms performed at that time, which are not currently available, described benign-appearing calcified masses compatible with cysts and/or fat necrosis. No other sonographic abnormality is currently seen in this region. IMPRESSION: Densely calcified nodules at the 9:00 location in the right breast which have been previously thought to represent areas of benign fat necrosis. Bilateral mammography, on a nonemergent basis, with comparison to the outside study is suggested for further evaluation.
[2016-04-17] MEDS: NYSTATIN TOPICAL POWDER 15GM BOTTLE. TP SCH (09:00)
--- NOTE | 2016-04-17 09:38 | PDOC ---
PULMONARY PROGRESS NOTES Subjective PT MORE RESPONSIVE NOT SOA Vitals Vital Signs Date Time Temp Pulse Resp B/P Pulse Ox O2 Delivery O2 Flow Rate FiO2 04/17/16 06:00 98 29 106/52 98 Nasal Cannula 2.0 04/17/16 04:00 96.4 96.4 ROS: No Nausea, No Chest Pain, No Increase Cough General: Lethargic Lungs: Clear Cardiovascular: S1, S2 Abdomen: Soft, Non-tender Extremities: No Edema Skin: Warm Labs Laboratory Tests Test 04/15/16 12:33 04/15/16 17:32 04/15/16 22:10 04/16/16 05:15 Glucose (Fingerstick) 111mg/dL (70-99) 120mg/dL (70-99) 138mg/dL (70-99) White Blood Count 18.5x10^3/uL (4.0-11.0) Red Blood Count 2.90x10^6/uL (3.50-5.40) Hemoglobin 8.8g/dL (12.0-15.5) Hematocrit 27.1% (36.0-47.0) Mean Corpuscular Volume 93fL (79-100) Mean Corpuscular Hemoglobin 30pg (25-35) Mean Corpuscular Hemoglobin Concent 32g/dL (31-37) Red Cell Distribution Width 16.4% (11.5-14.5) Platelet Count 109x10^3/uL (140-400) Neutrophils (%) (Auto) 79% (31-73) Lymphocytes (%) (Auto) 9% (24-48) Monocytes (%) (Auto) 8% (0-9) Eosinophils (%) (Auto) 3% (0-3) Basophils (%) (Auto) 1% (0-3) Neutrophils # (Auto) 14.6x10^3uL (1.8-7.7) Lymphocytes # (Auto) 1.7x10^3/uL (1.0-4.8) Monocytes # (Auto) 1.5x10^3/uL (0.0-1.1) Eosinophils # (Auto) 0.5x10^3/uL (0.0-0.7) Basophils # (Auto) 0.1x10^3/uL (0.0-0.2) Prothrombin Time 20.4SEC (11.7-14.0) Prothromb Time International Ratio 1.9 (0.8-1.1) Sodium Level 136mmol/L (136-145) Potassium Level 4.3mmol/L (3.5-5.1) Chloride Level 99mmol/L (98-107) Carbon Dioxide Level 26mmol/L (21-32) Anion Gap 11 (6-14) Blood Urea Nitrogen 36mg/dL (7-20) Creatinine 3.2mg/dL (0.6-1.0) Estimated GFR (Cockcroft-Gault) 15.1 Glucose Level 181mg/dL (70-99) Calcium Level 8.3mg/dL (8.5-10.1) Phosphorus Level 2.8mg/dL (2.6-4.7) Magnesium Level 2.1mg/dL (1.8-2.4) Total Bilirubin 4.6mg/dL (0.2-1.0) Direct Bilirubin 3.4mg/dL (0.0-0.2) Aspartate Amino Transf (AST/SGOT) 713U/L (15-37) Alanine Aminotransferase (ALT/SGPT) 1875U/L (14-59) Alkaline Phosphatase 86U/L (46-116) Creatine Kinase 122U/L (26-192) Total Protein 5.1g/dL (6.4-8.2) Albumin 1.8g/dL (3.4-5.0) Test 04/16/16 12:41 04/16/16 17:35 04/16/16 21:35 04/17/16 05:40 Glucose (Fingerstick) 128mg/dL (70-99) 157mg/dL (70-99) 157mg/dL (70-99) Prothrombin Time 20.3SEC (11.7-14.0) Prothromb Time International Ratio 1.9 (0.8-1.1) Sodium Level 138mmol/L (136-145) Potassium Level 4.7mmol/L (3.5-5.1) Chloride Level 100mmol/L (98-107) Carbon Dioxide Level 26mmol/L (21-32) Anion Gap 12 (6-14) Blood Urea Nitrogen 39mg/dL (7-20) Creatinine 3.2mg/dL (0.6-1.0) Estimated GFR (Cockcroft-Gault) 15.1 Glucose Level 206mg/dL (70-99) Calcium Level 8.4mg/dL (8.5-10.1) Phosphorus Level 2.9mg/dL (2.6-4.7) Magnesium Level 2.1mg/dL (1.8-2.4) Creatine Kinase 69U/L (26-192) Albumin 2.1g/dL (3.4-5.0) Laboratory Tests Test 04/16/16 12:41 04/16/16 17:35 04/16/16 21:35 04/17/16 05:40 Glucose (Fingerstick) 128mg/dL (70-99) 157mg/dL (70-99) 157mg/dL (70-99) Prothrombin Time 20.3SEC (11.7-14.0) Prothromb Time International Ratio 1.9 (0.8-1.1) Sodium Level 138mmol/L (136-145) Potassium Level 4.7mmol/L (3.5-5.1) Chloride Level 100mmol/L (98-107) Carbon Dioxide Level 26mmol/L (21-32) Anion Gap 12 (6-14) Blood Urea Nitrogen 39mg/dL (7-20) Creatinine 3.2mg/dL (0.6-1.0) Estimated GFR (Cockcroft-Gault) 15.1 Glucose Level 206mg/dL (70-99) Calcium Level 8.4mg/dL (8.5-10.1) Phosphorus Level 2.9mg/dL (2.6-4.7) Magnesium Level 2.1mg/dL (1.8-2.4) Creatine Kinase 69U/L (26-192) Albumin 2.1g/dL (3.4-5.0) Medications Active Scripts Medications Dose Route/Sig Days Date Category Chlorthalidone 25 Mg Tablet 1 Tab PO DAILY 04/12/16 Reported Magnesium (Magnesium Oxide) 250 Mg Tablet 250 Mg PO DAILY 04/12/16 Reported Glimepiride 4 Mg Tablet 1 Tab PO BID 04/12/16 Reported Proair Hfa Inhaler (Albuterol Sulfate) 8.5 Gm Hfa.aer.ad 1 Puff INH PRN Q6HRS PRN 04/12/16 Reported Chlorthalidone 25 Mg Tablet 1 Tab PO DAILY 04/12/16 Reported Lisinopril 5 Mg Tablet 1 Tab PO DAILY 04/12/16 Reported Crestor (Rosuvastatin Calcium) 20 Mg Tablet 1 Tab PO HS 04/12/16 Reported Gabapentin 300 Mg Capsule 300 Mg PO HS 04/12/16 Reported Multi Vitamin Daily (Multivitamin) 1 Each Tablet 1 Each PO DAILY 03/18/13 Reported Bumetanide 2 Mg Tablet 2 Mg PO DAILY 03/18/13 Reported Aspirin Ec (Aspirin) 81 Mg Tablet.dr 81 Mg PO DAILY 03/18/13 Reported Potassium Chloride 20 Meq Tab.er.prt 20 Meq PO DAILY 03/18/13 Reported Impression . 1. Acute respiratory failure secondary to sepsis. 2. Septic shock. 4. Toxic metabolic encephalopathy. 5. Acute on chronic renal failure. 6. Thrombocytopenia. 7. Elevated liver chemistries secondary to sepsis. 8. Non-ST segment elevation myocardial infarction. 9. Multiorgan failure secondary to sepsis. Plan . OVERALL IMPROVING WILL CONTINUE SUPPORT RESP STATUS IS COMPENSATE PT MORE AWAKE PRN BIPAP NEURO CONSULTED APPRECIATE DR URBAN INPUT DVT AND GI PROPH START TUBE FEEDING ALLAN WAHL MD Apr 17, 2016 09:38
[2016-04-17 10:31] LABS: BASO # 0.1 x10^3/uL (0.0-0.2); BASO % 1 % (0-3); EOS % 2 % (0-3); HEMATOCRIT 28.3 % (36.0-47.0); LYMPH # 2.1 x10^3/uL (1.0-4.8); LYMPH % 9 % (24-48); MEAN CORPUSCULAR HEMOGLOBIN 30 pg (25-35); MEAN CORPUSCULAR HGB CONC 32 g/dL (31-37); MEAN CORPUSCULAR VOLUME 95 fL (79-100); MONO % 9 % (0-9); NEUT % 80 % (31-73); PLATELET COUNT 144 x10^3/uL (140-400); RED BLOOD COUNT 2.98 x10^6/uL (3.50-5.40); RED CELL DISTRIBUTION WIDTH 16.8 % (11.5-14.5); WHITE BLOOD COUNT 23.9 x10^3/uL (4.0-11.0)
[2016-04-17 10:45] LABS: ALBUMIN 2.1 g/dL (3.4-5.0); DIRECT BILIRUBIN 3.7 mg/dL (0.0-0.2); TOTAL BILIRUBIN 5.2 mg/dL (0.2-1.0); TOTAL PROTEIN 5.4 g/dL (6.4-8.2)
--- NOTE | 2016-04-17 10:49 | PDOC ---
CARDIO Progress Notes Date and Time Date of Service 04/17/2016 Time of Evaluation 0940 Subjective Subjective: No Chest Pain, No shortness of breath, No Palpitations, Other ( feels better today) Vitals Vitals Vital Signs Date Time Temp Pulse Resp B/P Pulse Ox O2 Delivery O2 Flow Rate FiO2 04/17/16 06:00 98 29 106/52 98 Nasal Cannula 2.0 04/17/16 04:00 96.4 96.4 Weight Weight [ ] Input and Output Intake and Output Intake and Output 04/17/16 07:00 Intake Total 2081 ml Output Total 0 ml Balance 2081 ml IV Total 2081 ml Output Urine Total 0 ml Laboratory Labs Laboratory Tests Test 04/16/16 12:41 04/16/16 17:35 04/16/16 21:35 04/17/16 05:40 Glucose (Fingerstick) 128mg/dL (70-99) 157mg/dL (70-99) 157mg/dL (70-99) White Blood Count 23.9x10^3/uL (4.0-11.0) Red Blood Count 2.98x10^6/uL (3.50-5.40) Hemoglobin 9.0g/dL (12.0-15.5) Hematocrit 28.3% (36.0-47.0) Mean Corpuscular Volume 95fL (79-100) Mean Corpuscular Hemoglobin 30pg (25-35) Mean Corpuscular Hemoglobin Concent 32g/dL (31-37) Red Cell Distribution Width 16.8% (11.5-14.5) Platelet Count 144x10^3/uL (140-400) Neutrophils (%) (Auto) 80% (31-73) Lymphocytes (%) (Auto) 9% (24-48) Monocytes (%) (Auto) 9% (0-9) Eosinophils (%) (Auto) 2% (0-3) Basophils (%) (Auto) 1% (0-3) Neutrophils # (Auto) 19.1x10^3uL (1.8-7.7) Lymphocytes # (Auto) 2.1x10^3/uL (1.0-4.8) Monocytes # (Auto) 2.2x10^3/uL (0.0-1.1) Eosinophils # (Auto) 0.4x10^3/uL (0.0-0.7) Basophils # (Auto) 0.1x10^3/uL (0.0-0.2) Prothrombin Time 20.3SEC (11.7-14.0) Prothromb Time International Ratio 1.9 (0.8-1.1) Sodium Level 138mmol/L (136-145) Potassium Level 4.7mmol/L (3.5-5.1) Chloride Level 100mmol/L (98-107) Carbon Dioxide Level 26mmol/L (21-32) Anion Gap 12 (6-14) Blood Urea Nitrogen 39mg/dL (7-20) Creatinine 3.2mg/dL (0.6-1.0) Estimated GFR (Cockcroft-Gault) 15.1 Glucose Level 206mg/dL (70-99) Calcium Level 8.4mg/dL (8.5-10.1) Phosphorus Level 2.9mg/dL (2.6-4.7) Magnesium Level 2.1mg/dL (1.8-2.4) Creatine Kinase 69U/L (26-192) Albumin 2.1g/dL (3.4-5.0) Microbiology Micro Microbiology 04/13/16 Blood Culture - Preliminary, Resulted NO GROWTH AFTER 3 DAYS Review of Systems Constitutional: yes: no symptom reported Physical Exam HEENT: Neck Supple W Full Motion Chest: Symmetric LUNGS: Other (bibasilar crackles) Heart: S1S2, RRR (HR 90-100, SR/ST; no significant rhythm ectopies overnight), murmurs (2/6 systolic murmur to LLS border) Abdomen: Soft N/T, Other (anasarca) Extremities: Other (1+ bilateral LE pitting edema) Neurology: alert, oriented (to self), other (was noted having delusions at night by staff and also wanting to go smoke) Assessment Assessment 1. Multiorgan systemic failure/sepsis/shock liver 2. NSTEMI: likely type 2 related acute concurrent conditions 3. Acute on chronic systolic CHF: improved 4. New ESRD 5. Cardiomyopathy: Suspect NICM. EF 20-25% global hypokinesis and severe pulmonary HTN 6. Metabolic encephalopathy: some delusions but overall improved. 8. AICD in situ: single lead, medtronic, interrogation shows normal device Recommendations 1. Continue with supportive care 2. Swallow eval pending. Will transition to po BB if passes 3. Fluid off loading per HD, planned estimated removal of 2 KG per staff. 4. Again no records from Dr. Yu office. 5. Hold statin for now with persistent transaminitis/hepatomegaly 6. Resume ASA once po allowed. 7. ARB to consider, defer to nephrology 8. Would defer myocardial perfusion study unless she has any symptoms when her mentation returns back to baseline 9. Follow up with [facility] in 2-3 weeks. MARILU AMADOR APRN Apr 17, 2016 10:49
--- NOTE | 2016-04-17 11:21 | PDOC ---
PROGRESS NOTES Assessment Problems Medical Problems: (1) CHF (congestive heart failure) Status: Acute (2) Renal failure Status: Acute (3) Shock Status: Acute Metabolic encephalopathy, multiple medical problems, better Plan Hold off on additional neurological studies such as lumbar puncture. 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 Treat medical diseases. Subjective no complaints Objective Vital Signs Date Time Temp Pulse Resp B/P Pulse Ox O2 Delivery O2 Flow Rate FiO2 04/17/16 06:00 98 29 106/52 98 Nasal Cannula 2.0 04/17/16 04:00 96.4 96.4 Intake and Output 04/17/16 07:00 Intake Total 2081 ml Output Total 0 ml Balance 2081 ml IV Total 2081 ml Output Urine Total 0 ml PHYSICAL EXAM Alerts to voice, oriented to person, "hospital," not date, follows some commands PERRL. EOMI. CN: no focal findings. Muscle tone: normal. Muscle strength: 3/5 DTR: 1+ Plantar reflex: flexor Gait: not examined in bed. Sensory exam: not cooperative Cerebellar: not cooperative Review of Relevant I have reviewed the following items nelda (where applicable) has been applied. Labs Laboratory Tests Test 04/15/16 12:33 04/15/16 17:32 04/15/16 22:10 04/16/16 05:15 Glucose (Fingerstick) 111mg/dL (70-99) 120mg/dL (70-99) 138mg/dL (70-99) White Blood Count 18.5x10^3/uL (4.0-11.0) Red Blood Count 2.90x10^6/uL (3.50-5.40) Hemoglobin 8.8g/dL (12.0-15.5) Hematocrit 27.1% (36.0-47.0) Mean Corpuscular Volume 93fL (79-100) Mean Corpuscular Hemoglobin 30pg (25-35) Mean Corpuscular Hemoglobin Concent 32g/dL (31-37) Red Cell Distribution Width 16.4% (11.5-14.5) Platelet Count 109x10^3/uL (140-400) Neutrophils (%) (Auto) 79% (31-73) Lymphocytes (%) (Auto) 9% (24-48) Monocytes (%) (Auto) 8% (0-9) Eosinophils (%) (Auto) 3% (0-3) Basophils (%) (Auto) 1% (0-3) Neutrophils # (Auto) 14.6x10^3uL (1.8-7.7) Lymphocytes # (Auto) 1.7x10^3/uL (1.0-4.8) Monocytes # (Auto) 1.5x10^3/uL (0.0-1.1) Eosinophils # (Auto) 0.5x10^3/uL (0.0-0.7) Basophils # (Auto) 0.1x10^3/uL (0.0-0.2) Prothrombin Time 20.4SEC (11.7-14.0) Prothromb Time International Ratio 1.9 (0.8-1.1) Sodium Level 136mmol/L (136-145) Potassium Level 4.3mmol/L (3.5-5.1) Chloride Level 99mmol/L (98-107) Carbon Dioxide Level 26mmol/L (21-32) Anion Gap 11 (6-14) Blood Urea Nitrogen 36mg/dL (7-20) Creatinine 3.2mg/dL (0.6-1.0) Estimated GFR (Cockcroft-Gault) 15.1 Glucose Level 181mg/dL (70-99) Calcium Level 8.3mg/dL (8.5-10.1) Phosphorus Level 2.8mg/dL (2.6-4.7) Magnesium Level 2.1mg/dL (1.8-2.4) Total Bilirubin 4.6mg/dL (0.2-1.0) Direct Bilirubin 3.4mg/dL (0.0-0.2) Aspartate Amino Transf (AST/SGOT) 713U/L (15-37) Alanine Aminotransferase (ALT/SGPT) 1875U/L (14-59) Alkaline Phosphatase 86U/L (46-116) Creatine Kinase 122U/L (26-192) Total Protein 5.1g/dL (6.4-8.2) Albumin 1.8g/dL (3.4-5.0) Test 04/16/16 12:41 04/16/16 17:35 04/16/16 21:35 04/17/16 05:40 Glucose (Fingerstick) 128mg/dL (70-99) 157mg/dL (70-99) 157mg/dL (70-99) White Blood Count 23.9x10^3/uL (4.0-11.0) Red Blood Count 2.98x10^6/uL (3.50-5.40) Hemoglobin 9.0g/dL (12.0-15.5) Hematocrit 28.3% (36.0-47.0) Mean Corpuscular Volume 95fL (79-100) Mean Corpuscular Hemoglobin 30pg (25-35) Mean Corpuscular Hemoglobin Concent 32g/dL (31-37) Red Cell Distribution Width 16.8% (11.5-14.5) Platelet Count 144x10^3/uL (140-400) Neutrophils (%) (Auto) 80% (31-73) Lymphocytes (%) (Auto) 9% (24-48) Monocytes (%) (Auto) 9% (0-9) Eosinophils (%) (Auto) 2% (0-3) Basophils (%) (Auto) 1% (0-3) Neutrophils # (Auto) 19.1x10^3uL (1.8-7.7) Lymphocytes # (Auto) 2.1x10^3/uL (1.0-4.8) Monocytes # (Auto) 2.2x10^3/uL (0.0-1.1) Eosinophils # (Auto) 0.4x10^3/uL (0.0-0.7) Basophils # (Auto) 0.1x10^3/uL (0.0-0.2) Prothrombin Time 20.3SEC (11.7-14.0) Prothromb Time International Ratio 1.9 (0.8-1.1) Sodium Level 138mmol/L (136-145) Potassium Level 4.7mmol/L (3.5-5.1) Chloride Level 100mmol/L (98-107) Carbon Dioxide Level 26mmol/L (21-32) Anion Gap 12 (6-14) Blood Urea Nitrogen 39mg/dL (7-20) Creatinine 3.2mg/dL (0.6-1.0) Estimated GFR (Cockcroft-Gault) 15.1 Glucose Level 206mg/dL (70-99) Calcium Level 8.4mg/dL (8.5-10.1) Phosphorus Level 2.9mg/dL (2.6-4.7) Magnesium Level 2.1mg/dL (1.8-2.4) Total Bilirubin 5.2mg/dL (0.2-1.0) Direct Bilirubin 3.7mg/dL (0.0-0.2) Aspartate Amino Transf (AST/SGOT) 345U/L (15-37) Alanine Aminotransferase (ALT/SGPT) 1391U/L (14-59) Alkaline Phosphatase 102U/L (46-116) Creatine Kinase 69U/L (26-192) Total Protein 5.4g/dL (6.4-8.2) Albumin 2.1g/dL (3.4-5.0) Laboratory Tests Test 04/16/16 12:41 04/16/16 17:35 04/16/16 21:35 04/17/16 05:40 Glucose (Fingerstick) 128mg/dL (70-99) 157mg/dL (70-99) 157mg/dL (70-99) White Blood Count 23.9x10^3/uL (4.0-11.0) Red Blood Count 2.98x10^6/uL (3.50-5.40) Hemoglobin 9.0g/dL (12.0-15.5) Hematocrit 28.3% (36.0-47.0) Mean Corpuscular Volume 95fL (79-100) Mean Corpuscular Hemoglobin 30pg (25-35) Mean Corpuscular Hemoglobin Concent 32g/dL (31-37) Red Cell Distribution Width 16.8% (11.5-14.5) Platelet Count 144x10^3/uL (140-400) Neutrophils (%) (Auto) 80% (31-73) Lymphocytes (%) (Auto) 9% (24-48) Monocytes (%) (Auto) 9% (0-9) Eosinophils (%) (Auto) 2% (0-3) Basophils (%) (Auto) 1% (0-3) Neutrophils # (Auto) 19.1x10^3uL (1.8-7.7) Lymphocytes # (Auto) 2.1x10^3/uL (1.0-4.8) Monocytes # (Auto) 2.2x10^3/uL (0.0-1.1) Eosinophils # (Auto) 0.4x10^3/uL (0.0-0.7) Basophils # (Auto) 0.1x10^3/uL (0.0-0.2) Prothrombin Time 20.3SEC (11.7-14.0) Prothromb Time International Ratio 1.9 (0.8-1.1) Sodium Level 138mmol/L (136-145) Potassium Level 4.7mmol/L (3.5-5.1) Chloride Level 100mmol/L (98-107) Carbon Dioxide Level 26mmol/L (21-32) Anion Gap 12 (6-14) Blood Urea Nitrogen 39mg/dL (7-20) Creatinine 3.2mg/dL (0.6-1.0) Estimated GFR (Cockcroft-Gault) 15.1 Glucose Level 206mg/dL (70-99) Calcium Level 8.4mg/dL (8.5-10.1) Phosphorus Level 2.9mg/dL (2.6-4.7) Magnesium Level 2.1mg/dL (1.8-2.4) Total Bilirubin 5.2mg/dL (0.2-1.0) Direct Bilirubin 3.7mg/dL (0.0-0.2) Aspartate Amino Transf (AST/SGOT) 345U/L (15-37) Alanine Aminotransferase (ALT/SGPT) 1391U/L (14-59) Alkaline Phosphatase 102U/L (46-116) Creatine Kinase 69U/L (26-192) Total Protein 5.4g/dL (6.4-8.2) Albumin 2.1g/dL (3.4-5.0) Microbiology 04/13/16 Blood Culture - Preliminary, Resulted NO GROWTH AFTER 3 DAYS Medications Current Medications Acetaminophen (Tylenol) 650 mg PRN Q6HRS PRN PO Headaches, Temp > 101.5'; Start 04/12/16 at 02:30 Ondansetron HCl (Zofran) 4 mg PRN Q6HRS PRN IV NAUSEA/VOMITING; Start 04/12/16 at 02:30 Famotidine (Pepcid) 20 mg BID IVP Last administered on 04/15/16 08:46; Start 04/12/16 at 09:00; Stop 04/15/16 at 12:13; Status DC Info 1 ea DAILY MC ; Start 04/12/16 at 09:00 Fentanyl Citrate (Fentanyl 2ml Vial) 25 mcg PRN Q1HR PRN IV COMM Last administered on 04/15/16 14:55; Start 04/12/16 at 02:30 Fentanyl Citrate 50 mcg 50 mcg PRN Q1HR PRN IV COMM Last administered on 00:23; Start 04/12/16 at 02:30 Norepinephrine Bitartrate/Sodium Chloride (Levophed Vial/ Iv Sodium Chloride 0.9 % 250ml) 258 ml @ 0 mls/hr CONT PRN IV SEE I/O RECORD Last administered on 04/13 02:55; Start 04/12/16 at 02:30 Haloperidol Lactate (Haldol) 5 mg PRN Q6HRS PRN IVP AGITATION Last administered on 04/14/16 23:26; Start 04/12/16 at 02:30 Acetaminophen (Tylenol) 650 mg PRN Q6HRS PRN CA MILD PAIN / TEMP Last administered on 04/15/16 19:55; Start 04/12/16 at 03:30 Nystatin (Nystop) 1 gabrielle BID TP Last administered on 04/16/16 21:28; Start 01/16 at 03:30 Insulin Aspart (Novolog) 0-9 UNITS TIDWMEALS SQ Last administered on 04/13/16 17:06; Start 04/12/16 at 08:00 Dextrose 12.5 gm PRN Q15MIN PRN IV SEE COMMENTS; Start 04/12/16 at 04:00 Info 1 each 1 each PRN DAILY PRN MC SEE COMMENTS; Start 04/12/16 at 06:30 Piperacillin Sod/ Tazobactam Sod 3.375 gm/Sodium Chloride 50 ml @ 100 mls/hr Q8HRS IV ; Start 04/12/16 at 14:00; Stop 04/12/16 at 14:00; Status DC Levofloxacin/ Dextrose 100 ml @ 100 mls/hr 1X ONCE IV Last administered on 08:48; Start 04/12/16 at 08:00; Stop 04/12/16 at 08:59; Status DC Ceftriaxone Sodium 1 gm/ Sodium Chloride 50 ml @ 100 mls/hr Q24H IV Last administered on 04/12/16 08:48; Start 04/12/16 at 09:00; Stop 04/12/16 at 10:25 ; Status DC Piperacillin Sod/ Tazobactam Sod/ Sodium Chloride (Zosyn/Iv Sodium Chloride 0.9 % 50ml) 50 ml @ 100 mls/hr Q8HRS IV Last administered on 04/17/16 05:32; Start 04/12/16 at 14:00 Lidocaine/Sodium Bicarbonate (Buffered Lidocaine 1%) 3 ml 1X ONCE IJ Last administered on 04/12/16 12:45; Start 04/12/16 at 12:45; Stop 04/12/16 at 12:47 ; Status DC Heparin Sodium/ Sodium Chloride 60 unit 1X ONCE IV Last administered on 12:45; Start 04/12/16 at 12:45; Stop 04/12/16 at 12:47; Status DC Heparin Sodium (Porcine) 2,500 unit 1X ONCE INT CAT Last administered on 12:45; Start 04/12/16 at 12:45; Stop 04/12/16 at 12:47; Status DC Heparin Sodium (Porcine) 35341 unit 10,000 unit STK-MED ONCE .ROUTE ; Start 01/16 at 12:51; Stop 04/12/16 at 12:52; Status DC Sodium Chloride 1,000 ml @ 1,000 mls/hr Q1H PRN IV hypotension; Start 04/12/16 at 16:27; Stop 04/12/16 at 22:26; Status DC Albumin Human (Albuminar) 200 ml @ 200 mls/hr 1X PRN PRN IV Hypotension Last administered on 04/12/16 17:21; Start 04/12/16 at 16:30; Stop 04/12/16 at 22:29 ; Status DC Midodrine (Proamatine) 5 mg 1X ONCE PO ; Start 04/12/16 at 16:30; Stop at 16:34; Status DC Diphenhydramine HCl (Benadryl) 25 mg 1X PRN PRN IV ITCHING; Start 04/12/16 at 16:30; Stop 04/13/16 at 11:10; Status DC Diphenhydramine HCl (Benadryl) 25 mg 1X PRN PRN IV ITCHING; Start 04/12/16 at 16:30; Stop 04/13/16 at 11:10; Status DC Info 1 each 1 each PRN DAILY PRN MC SEE COMMENTS; Start 04/12/16 at 16:30; Status UNV Sodium Chloride 1,000 ml @ 15 mls/hr Q24H IV Last administered on 04/12/16 18 :14; Start 04/12/16 at 14:00; Stop 04/14/16 at 13:11; Status DC Sodium Chloride 250 ml @ 250 mls/hr 1X ONCE IV Last administered on 22:34; Start 04/12/16 at 22:30; Stop 04/12/16 at 23:29; Status DC Sodium Chloride 1,000 ml @ 75 mls/hr [id number] IV Last administered on 21:31; Start 04/13/16 at 09:30; Stop 04/14/16 at 13:11; Status DC Sodium Chloride 1,000 ml @ 1,000 mls/hr 1X ONCE IV Last administered on 10:10; Start 04/13/16 at 09:30; Stop 04/13/16 at 10:29; Status DC Amino Acids/ Glycerin/ Electrolytes 1,000 ml @ 80 mls/hr [id number] IV Last administered on 04/17/16 00:00; Start 04/13/16 at 10:00 Magnesium Sulfate/ Dextrose 50 ml @ 25 mls/hr 1X ONCE IV Last administered on 04/13/16 14:35; Start 04/13/16 at 15:00; Stop 04/13/16 at 16:59; Status DC Sodium Chloride (Iv Sodium Chloride 0.9% 1000ml Bag) 1,000 ml @ 1,000 mls/hr Q1H PRN IV hypotension; Start 04/14/16 at 08:13; Stop 04/14/16 at 14:12; Status DC Diphenhydramine HCl (Benadryl) 25 mg 1X PRN PRN IV ITCHING; Start 04/14/16 at 08:15; Stop 04/15/16 at 08:14; Status DC Diphenhydramine HCl (Benadryl) 25 mg 1X PRN PRN IV ITCHING; Start 04/14/16 at 08:15; Stop 04/15/16 at 08:14; Status DC Sodium Chloride (Normal Saline Flush) 10 ml 1X PRN PRN IV AP catheter pack; Start 04/14/16 at 08:15; Stop 04/15/16 at 08:14; Status DC Sodium Chloride 10 ml 10 ml 1X PRN PRN IV DELIVERY CLERK catheter pack; Start 04/14/16 at 08:15; Stop 04/15/16 at 08:14; Status DC Sodium Chloride (Iv Sodium Chloride 0.9% 1000ml Bag) 1,000 ml @ 400 mls/hr Q2H30M PRN IV PATENCY; Start 04/14/16 at 08:13; Stop 04/14/16 at 20:12; Status DC Info (PHARMACY MONITORING -- do not chart) 1 each PRN DAILY PRN MC SEE COMMENTS ; Start 04/14/16 at 08:15; Stop 04/14/16 at 08:20; Status DC Darbepoetin Manuel 60 mcg 60 mcg [id number] SQ Last administered on 04/14/16t 20:46 ; Start 04/14/16 at 21:00 Magnesium Sulfate/ Dextrose (Magnesium Sulfate PREMIX 2GM) 50 ml @ 25 mls/hr PRN DAILY PRN IV for Mag < 1.7 on am labs; Start 04/14/16 at 09:30 Metoprolol Tartrate 2.5 mg 2.5 mg Q6HRS IVP Last administered on 04/17/16 05: 32; Start 04/14/16 at 11:30 Sodium Chloride 1,000 ml @ 1,000 mls/hr Q1H PRN IV hypotension; Start 04/15/16 at 07:30; Stop 04/15/16 at 13:29; Status DC Sodium Chloride (Iv Sodium Chloride 0.9% 1000ml Bag) 1,000 ml @ 400 mls/hr Q2H30M PRN IV PATENCY; Start 04/15/16 at 07:30; Stop 04/15/16 at 19:29; Status DC Info (PHARMACY MONITORING -- do not chart) 1 each PRN DAILY PRN MC SEE COMMENTS ; Start 04/15/16 at 09:15; Status UNV Famotidine 20 mg 20 mg Q48H IVP Last administered on 04/16/16t 12:37; Start at 09:00 Sodium Chloride 1,000 ml @ 1,000 mls/hr Q1H PRN IV hypotension; Start 04/16/16 at 07:37; Stop 04/16/16 at 13:36; Status DC Albumin Human (Albuminar) 200 ml @ 200 mls/hr 1X PRN PRN IV Hypotension; Start 04/16/16 at 07:45; Stop 04/16/16 at 13:44; Status DC Info (PHARMACY MONITORING -- do not chart) 1 each PRN DAILY PRN MC SEE COMMENTS ; Start 04/16/16 at 07:45; Status UNV Info (PHARMACY MONITORING -- do not chart) 1 each PRN DAILY PRN MC SEE COMMENTS ; Start 04/16/16 at 07:45; Status UNV Active Scripts Active No Active Prescriptions or Reported Medications Vitals/I & O Vital Sign - Last 24 Hours 04/16/16 04/16/16 04/16/16 04/16/16 12:00 12:00 12:38 13:00 Temp 98.1 98.1 Pulse 112 115 104 Resp 20 18 B/P 130/57 145/72 121/56 Pulse Ox 92 96 O2 Delivery Room Air Room Air Room Air 04/16/16 04/16/16 04/16/16 04/16/16 14:00 15:00 16:00 16:00 Pulse 104 120 114 Resp 18 18 20 B/P 138/65 122/62 129/63 Pulse Ox 96 96 98 O2 Delivery Room Air Room Air Room Air Room Air 04/16/16 04/16/16 04/16/16 04/16/16 17:00 17:56 19:00 19:45 Temp 99.4 97.8 99.4 97.8 Pulse 111 114 111 Resp 20 20 20 B/P 86/55 129/63 114/54 Pulse Ox 98 98 95 O2 Delivery Nasal Cannula Room Air Room Air Room Air O2 Flow Rate 2.0 04/16/16 04/16/16 04/16/16 04/16/16 20:00 21:00 22:00 23:00 Pulse 113 110 112 112 Resp 20 22 24 24 B/P 119/56 130/60 116/50 119/56 Pulse Ox 95 93 96 93 O2 Delivery Room Air Room Air Room Air Room Air 04/16/16 04/17/16 04/17/16 04/17/16 23:55 00:00 00:00 01:00 Temp 97.9 97.9 Pulse 112 106 111 Resp 28 26 B/P 119/56 104/50 119/62 Pulse Ox 100 94 O2 Delivery Nasal Cannula Nasal Cannula Room Air O2 Flow Rate 2.0 2.0 04/17/16 04/17/16 04/17/16 04/17/16 02:00 03:00 03:48 04:00 Temp 96.4 96.4 Pulse 108 108 108 Resp 26 24 28 B/P 135/72 136/59 Pulse Ox 99 100 100 O2 Delivery Nasal Cannula Nasal Cannula Nasal Cannula Nasal Cannula O2 Flow Rate 2.0 2.0 2.0 2.0 04/17/16 04/17/16 04/17/16 05:00 05:32 06:00 Pulse 104 107 98 Resp 30 29 B/P 136/72 130/84 106/52 Pulse Ox 92 98 O2 Delivery Room Air Nasal Cannula O2 Flow Rate 2.0 Intake and Output 04/16/16 04/16/16 04/17/16 15:00 23:00 07:00 Intake Total 50 ml 2031 ml Output Total 0 ml Balance 50 ml 2031 ml CONNER WALTON MD Apr 17, 2016 11:21
--- NOTE | 2016-04-17 11:25 | PDOC ---
Renal-Progress Notes Subjective Notes Notes CONFUSED History of Present Illness Hx of present illness BETTER Vitals Vitals Vital Signs Date Time Temp Pulse Resp B/P Pulse Ox O2 Delivery O2 Flow Rate FiO2 04/17/16 06:00 98 29 106/52 98 Nasal Cannula 2.0 04/17/16 04:00 96.4 96.4 Weight Weight [ ] I.O. Intake and Output Intake and Output 04/17/16 07:00 Intake Total 2081 ml Output Total 0 ml Balance 2081 ml IV Total 2081 ml Output Urine Total 0 ml Labs Labs Laboratory Tests Test 04/16/16 12:41 04/16/16 17:35 04/16/16 21:35 04/17/16 05:40 Glucose (Fingerstick) 128mg/dL (70-99) 157mg/dL (70-99) 157mg/dL (70-99) White Blood Count 23.9x10^3/uL (4.0-11.0) Red Blood Count 2.98x10^6/uL (3.50-5.40) Hemoglobin 9.0g/dL (12.0-15.5) Hematocrit 28.3% (36.0-47.0) Mean Corpuscular Volume 95fL (79-100) Mean Corpuscular Hemoglobin 30pg (25-35) Mean Corpuscular Hemoglobin Concent 32g/dL (31-37) Red Cell Distribution Width 16.8% (11.5-14.5) Platelet Count 144x10^3/uL (140-400) Neutrophils (%) (Auto) 80% (31-73) Lymphocytes (%) (Auto) 9% (24-48) Monocytes (%) (Auto) 9% (0-9) Eosinophils (%) (Auto) 2% (0-3) Basophils (%) (Auto) 1% (0-3) Neutrophils # (Auto) 19.1x10^3uL (1.8-7.7) Lymphocytes # (Auto) 2.1x10^3/uL (1.0-4.8) Monocytes # (Auto) 2.2x10^3/uL (0.0-1.1) Eosinophils # (Auto) 0.4x10^3/uL (0.0-0.7) Basophils # (Auto) 0.1x10^3/uL (0.0-0.2) Prothrombin Time 20.3SEC (11.7-14.0) Prothromb Time International Ratio 1.9 (0.8-1.1) Sodium Level 138mmol/L (136-145) Potassium Level 4.7mmol/L (3.5-5.1) Chloride Level 100mmol/L (98-107) Carbon Dioxide Level 26mmol/L (21-32) Anion Gap 12 (6-14) Blood Urea Nitrogen 39mg/dL (7-20) Creatinine 3.2mg/dL (0.6-1.0) Estimated GFR (Cockcroft-Gault) 15.1 Glucose Level 206mg/dL (70-99) Calcium Level 8.4mg/dL (8.5-10.1) Phosphorus Level 2.9mg/dL (2.6-4.7) Magnesium Level 2.1mg/dL (1.8-2.4) Total Bilirubin 5.2mg/dL (0.2-1.0) Direct Bilirubin 3.7mg/dL (0.0-0.2) Aspartate Amino Transf (AST/SGOT) 345U/L (15-37) Alanine Aminotransferase (ALT/SGPT) 1391U/L (14-59) Alkaline Phosphatase 102U/L (46-116) Creatine Kinase 69U/L (26-192) Total Protein 5.4g/dL (6.4-8.2) Albumin 2.1g/dL (3.4-5.0) Micro Micro Microbiology 04/13/16 Blood Culture - Preliminary, Resulted NO GROWTH AFTER 3 DAYS Review of Systems Constitutional: yes: no symptom reported Physical Exam General Appearance: no apparent distress Skin: warm Respiratory: decreased breath sounds Heart: S1S2 Abdomen: soft, bowel sounds present Genitourinary: bladder flat Extremities: pulses present Neurology: non-verbal, other (lethargic) Assessment Assessment IMP MET ENCEPHALOPATHY-BETTER BUT STILL CONFUSED ANEMIA ESRD S/P EXTUBATION PLAN HD TOMORROW CONT PPN WILL NEED TO HAVE TUNNELED HD CATHETER PLACED WILL FOLLOW RITU PARSON MD Apr 17, 2016 11:25
--- NOTE | 2016-04-17 11:41 | PDOC ---
Subjective: Subjective: Per pt - no pain. Thinks she's on a kitchen counter. Objective: Objective: Per RN - awake, confused. No tube feeds started because she's more awake. Plans to try diet later. Likely DC to [facility] today. Vital Signs: Vital Signs Date Time Temp Pulse Resp B/P Pulse Ox O2 Delivery O2 Flow Rate FiO2 04/17/16 06:00 98 29 106/52 98 Nasal Cannula 2.0 04/17/16 04:00 96.4 96.4 Labs: Laboratory Tests Test 04/16/16 12:41 04/16/16 17:35 04/16/16 21:35 04/17/16 05:40 Glucose (Fingerstick) 128mg/dL 157mg/dL 157mg/dL White Blood Count 23.9x10^3/uL Red Blood Count 2.98x10^6/uL Hemoglobin 9.0g/dL Hematocrit 28.3% Mean Corpuscular Volume 95fL Mean Corpuscular Hemoglobin 30pg Mean Corpuscular Hemoglobin Concent 32g/dL Red Cell Distribution Width 16.8% Platelet Count 144x10^3/uL Neutrophils (%) (Auto) 80% Lymphocytes (%) (Auto) 9% Monocytes (%) (Auto) 9% Eosinophils (%) (Auto) 2% Basophils (%) (Auto) 1% Neutrophils # (Auto) 19.1x10^3uL Lymphocytes # (Auto) 2.1x10^3/uL Monocytes # (Auto) 2.2x10^3/uL Eosinophils # (Auto) 0.4x10^3/uL Basophils # (Auto) 0.1x10^3/uL Prothrombin Time 20.3SEC Prothromb Time International Ratio 1.9 Sodium Level 138mmol/L Potassium Level 4.7mmol/L Chloride Level 100mmol/L Carbon Dioxide Level 26mmol/L Anion Gap 12 Blood Urea Nitrogen 39mg/dL Creatinine 3.2mg/dL Estimated GFR (Cockcroft-Gault) 15.1 Glucose Level 206mg/dL Calcium Level 8.4mg/dL Phosphorus Level 2.9mg/dL Magnesium Level 2.1mg/dL Total Bilirubin 5.2mg/dL Direct Bilirubin 3.7mg/dL Aspartate Amino Transf (AST/SGOT) 345U/L Alanine Aminotransferase (ALT/SGPT) 1391U/L Alkaline Phosphatase 102U/L Creatine Kinase 69U/L Total Protein 5.4g/dL Albumin 2.1g/dL Imaging: Abd US 04/16/16 IMPRESSION: 1. Small echogenic foci along the gallbladder alvarez suggesting a polyp and possible adenomyomatosis. No definite gallstones are seen. 2. Slightly enlarged common hepatic duct. 3. Hepatomegaly. 4. Obscuration of the common bile duct and pancreas due to overlying bowel. CT scanning may be useful for further evaluation, if clinically indicated. PE: GEN: NAD LUNGS: clear anteriorly HEART: tachycardic ABD: obese, BS+ NEURO/PSYCH: confused A/P: Elevated LFTs -w/ septic shock -transaminases improved, bili worse (4.6 to 5.2) -Hepatitis panel neg -abd US: possible GB polyp and adenomyomatosis, slightly enlarged common hepatic duct, hepatomegaly, CBD obscured by overlying bowel Encephalopathy, CHF, CKD -- Note possible DC today. Will review US w/ Dr. Penny. HANS CHASE Apr 17, 2016 11:41
--- NOTE | 2016-04-17 14:38 | PDOC3 ---
Discharge Summary [facility] Date of Admission: Apr 12, 2016 Discharge Date: Apr 17, 2016 Admitting Diagnosis 1. shock, POA,likely cardiogenic, sepsis less likely 2. [id number] congestive heart failure. 3. Elevated LFTs, possible due to shock POA 4. Elevated troponin POA 5. Elevated D dimer POA 6. Metabolic encephalopathy POA 7. Renal failure POA 8. Respiratory failure hypoxic 9. anemia 10. thrombocytopenia Problems: Final Diagnosis Problems Medical Problems: (1) CHF (congestive heart failure) Status: Acute (2) Renal failure Status: Acute (3) Shock Status: Acute CONSULTS card id renal pulm Brief Hospital Course Ms. Mcknight is a 55 old F, with chf ICD, no details ,was sent from [facility] for shock and AMS. pT WAS IN icu , treatred for possible sepsis wo good etiology, was on pressor for 2 days, now off. new HD for YAN. Echo showed EF 20%, NO records gotten yet. pt finally waking up from yesterday, can talk a little bit, follow commands. dc to [facility] dc time 40min mild confused, much better than before Heart: Regular rate, Normal S1, Normal S2, No murmurs, Gallops Lungs: Clear Abdomen: Normal bowel sounds, Soft, No tenderness, No hepatosplenomegaly, No masses Extremities: No clubbing, No cyanosis, No edema, Normal pulses, No tenderness/ swelling Problems: Disposition LTAC CONDITION AT DISCHARGE: Improved Diet renal No Active Prescriptions or Reported Meds LYNETTE MOSHER MD Apr 17, 2016 14:37
[2016-04-22] MEDS ORDERED: IPRA3AMP NEB (07:46)
[2016-04-22] MEDS ORDERED: LINE600I IV (07:46)
[2016-04-22] MEDS ORDERED: HALO5VIA2 IJ (07:46)
[2016-04-22] MEDS ORDERED: DARB60DI SQ (07:46)
[2016-04-22] MEDS ORDERED: CEFE1PIG IV (07:46)
[2016-04-22] MEDS ORDERED: B CO1CAP11 PO (07:46)
[2016-04-22] MEDS ORDERED: IRON200V IV (07:46)
[2016-04-22] MEDS ORDERED: METO25TA4 PO (07:46)
[2016-04-22] MEDS ORDERED: ASPI81TA2 PO (07:46)
[2016-04-22] MEDS ORDERED: NICO1PAT25 TD (07:46)
[2016-04-22] MEDS ORDERED: [UNRECOGNIZED DRUG - CODE] IV (07:46)
[2016-04-22] MEDS ORDERED: [UNRECOGNIZED DRUG - CODE] IV (07:46)
[2016-04-22] MEDS ORDERED: ONDA4DIS IJ (07:46)
[2016-04-22] MEDS ORDERED: [UNRECOGNIZED DRUG - CODE] IV (07:46)
[2016-04-22] MEDS ORDERED: ACET325C PO (07:46)
== END 2016-04-17 13:30 | DRG 871 ==
LOC: 1 WEST ICU 04-12 02:22
PROVIDERS: ADMIT Internal Medicine; ATTEND Internal Medicine
PROC: 02H633Z Insertion of Infusion Device into Right Atrium, Percutaneous Approach (ICD-10-PCS; 2016-04-12)
PROC: B244ZZZ Ultrasonography of Right Heart (ICD-10-PCS; 2016-04-12)
PROC: 5A1D60Z (ICD-10-PCS; principal; 2016-04-16)
DX: A41.9 Sepsis, unspecified organism (principal); G92 Toxic encephalopathy; I21.4 Non-ST elevation (NSTEMI) myocardial infarction; I50.23 Acute on chronic systolic (congestive) heart failure; J96.01 Acute respiratory failure with hypoxia; K72.00 Acute and subacute hepatic failure without coma; N18.6 End stage renal disease; R65.21 Severe sepsis with septic shock; Z68.42 Body mass index [BMI] 45.0-49.9, adult; E87.1 Hypo-osmolality and hyponatremia; N17.9 Acute kidney failure, unspecified; I13.2 Hypertensive heart and chronic kidney disease with heart failure and with stage 5 chronic kidney disease, or end stage renal disease; D64.9 Anemia, unspecified; D69.6 Thrombocytopenia, unspecified; E10.22 Type 1 diabetes mellitus with diabetic chronic kidney disease; E10.319 Type 1 diabetes mellitus with unspecified diabetic retinopathy without macular edema; E10.40 Type 1 diabetes mellitus with diabetic neuropathy, unspecified; E66.9 Obesity, unspecified; E78.5 Hyperlipidemia, unspecified; E83.42 Hypomagnesemia; E87.5 Hyperkalemia; F22 Delusional disorders; F17.210 Nicotine dependence, cigarettes, uncomplicated; G47.33 Obstructive sleep apnea (adult) (pediatric); H40.9 Unspecified glaucoma; I25.10 Atherosclerotic heart disease of native coronary artery without angina pectoris; I25.5 Ischemic cardiomyopathy; I27.2 Other secondary pulmonary hypertension; J44.9 Chronic obstructive pulmonary disease, unspecified; K21.9 Gastro-esophageal reflux disease without esophagitis; K22.70 Barrett's esophagus without dysplasia; K74.60 Unspecified cirrhosis of liver; G62.9 Polyneuropathy, unspecified; F32.9 Major depressive disorder, single episode, unspecified; Z88.2 Allergy status to sulfonamides; Z88.8 Allergy status to other drugs, medicaments and biological substances; Z79.4 Long term (current) use of insulin; Z91.030 Bee allergy status; Z82.49 Family history of ischemic heart disease and other diseases of the circulatory system; Z83.3 Family history of diabetes mellitus; Z90.5 Acquired absence of kidney; Z91.14 Patient's other noncompliance with medication regimen; Z91.19 Patient's noncompliance with other medical treatment and regimen; Z95.810 Presence of automatic (implantable) cardiac defibrillator; Z99.2 Dependence on renal dialysis; Z87.440 Personal history of urinary (tract) infections; Z79.899 Other long term (current) drug therapy
CPT/HCPCS: 36415; 36556; 70450; 71010; 74000; 76641; 76705; 76770; 76937; 80053; 80069; 80074; 80076; 82140; 82550; 82947; 83605; 83615; 83735; 84145; 84484; 85007; 85027; 85384; 85610; 86706; 87040; 87340; 87341; 87641; 93005; 93306; 94660; C1769; C1892; J0696; J0881; J1630; J1815; J1956; J2543; J3010; J3490; J7030; J7050; J7060; P9046; S0028

== ENCOUNTER 2016-07-01 21:25 | Inpatient (IN) | payer MEDICARE, MEDICAID ==
[~2016-07-01] VITALS: Ht 147.3 cm; Wt 99.5 kg
[~2016-07-01 21:25] MED LIST changes: +ACET325C PO; +ASPI81TA2 PO; +B CO1CAP11 PO; +CEFE1PIG IV; +CHLO25TA PO; +CRESTOR20 MG PO; +DARB60DI SQ; +GABA-586 PO; +GLIM4TAB2 PO; +HALO5VIA2 IJ; +INSU100I13 SQ; +INSU100V SQ; +IPRA3AMP NEB; +IRON200V IV; +LINE600I IV; +LISI-338 PO; +MAGN250T5 PO; +METO25TA4 PO; +NICO1PAT25 TD; +ONDA4DIS IJ; +PROAIR HFA8.5 GM INH; +[UNRECOGNIZED DRUG - CODE] IV; +[UNRECOGNIZED DRUG - CODE] IV; +[UNRECOGNIZED DRUG - CODE] IV
--- NOTE | 2016-07-01 21:40 | PHYS DOC ---
Adult General Chief Complaint Chief Complaint: ALTERED MENTAL STATUS [facility] HPI Patient is a 55 year old female brought in by EMS for evaluation of altered mental status twitching right shoulder pain. Patient is a Thursday dialysis patient and had her dialysis earlier today with no issues however since returning from dialysis she has been more confused. Per shelter staff she was complaining of right shoulder pain and her urine had an abnormal color. Patient is alert to herself and thinks that she is at [facility] and very slow to tell me the month is June and the year is 2016 she initially had her orientation answers incorrect. She is on 3 L of oxygen satting at 90% and reportedly she is not usually on oxygen at the shelter. Pain is over her right clavicle. She is in no obvious distress. Review of Systems Review of Systems Constitutional: Denies fever or chills [] Eyes: Denies change in visual acuity, redness, or eye pain [] HENT: Denies nasal congestion or sore throat [] Respiratory: Denies cough or shortness of breath [] Cardiovascular: No additional information not addressed in HPI [] GI: Denies abdominal pain, nausea, vomiting, bloody stools or diarrhea [] : Denies dysuria or hematuria [] Musculoskeletal: Denies back pain. + R shoulder joint pain [] Integument: Denies rash or skin lesions [] Neurologic: Denies headache, focal weakness or sensory changes [] Current Medications Current Medications Current Medications Medications (Trade) Dose Ordered Sig/Susan Start Time Stop Time Status Last Admin Dose Admin Ceftriaxone Sodium (Rocephin 1gm Ivpb For Omni) 50 ml @ 100 mls/hr 1X ONCE 07/01/16 22:30 07/01/16 22:59 DC 07/01/16 22:34 100 MLS/HR Allergies Allergies Allergies Coded Allergies Type Severity Reaction Last Updated Verified sulfamethoxazole Allergy Severe Hives 03/18/13 Yes trimethoprim Allergy Severe Hives 03/18/13 Yes venom-honey bee Allergy Severe Anaphylaxis 03/18/13 Yes I S O L A T I O N *CONTACT* Allergy Unknown 04/15/16 Yes Physical Exam Physical Exam Constitutional: Well developed, well nourished, no acute distress, non-toxic appearance. [] HENT: Normocephalic, atraumatic, bilateral external ears normal, oropharynx moist, no oral exudates, nose normal. [] Eyes: PERRLA, EOMI, conjunctiva normal, no discharge. [] Neck: Normal range of motion, no tenderness, supple, no stridor. [] Cardiovascular:Heart rate regular rhythm, no murmur [] Lungs & Thorax: Bilateral breath sounds clear to auscultation [] Abdomen: Bowel sounds normal, soft, no tenderness, no masses, no pulsatile masses. [] Skin: Warm, dry, no erythema, no rash. [] Back: No tenderness, no CVA tenderness. [] Extremities: No tenderness, no cyanosis, no clubbing, ROM intact, no edema. [] Neurologic: Alert and oriented X 1, moves all extremities and there is abnormal twitching mostly noted on left arm. Current Patient Data Vital Signs Vital Signs Date Time Temp Pulse Resp B/P Pulse Ox O2 Delivery O2 Flow Rate FiO2 07/01/16 21:27 98.2 90 20 111/64 90 Room Air 98.2 Lab Values Laboratory Tests Test 07/01/16 21:38 07/01/16 22:40 White Blood Count 6.1x10^3/uL (4.0-11.0) Red Blood Count 3.10x10^6/uL (3.50-5.40) L Hemoglobin 9.1g/dL (12.0-15.5) L Hematocrit 27.2% (36.0-47.0) L Mean Corpuscular Volume 88fL (79-100) Mean Corpuscular Hemoglobin 29pg (25-35) Mean Corpuscular Hemoglobin Concent 33g/dL (31-37) Red Cell Distribution Width 18.2% (11.5-14.5) H Platelet Count 183x10^3/uL (140-400) Neutrophils (%) (Auto) 72% (31-73) Lymphocytes (%) (Auto) 15% (24-48) L Monocytes (%) (Auto) 9% (0-9) Eosinophils (%) (Auto) 4% (0-3) H Basophils (%) (Auto) 1% (0-3) Neutrophils # (Auto) 4.4x10^3uL (1.8-7.7) Lymphocytes # (Auto) 0.9x10^3/uL (1.0-4.8) L Monocytes # (Auto) 0.5x10^3/uL (0.0-1.1) Eosinophils # (Auto) 0.2x10^3/uL (0.0-0.7) Basophils # (Auto) 0.0x10^3/uL (0.0-0.2) Prothrombin Time 15.1SEC (11.7-14.0) H Prothrombin Time INR 1.3 (0.8-1.1) H PTT 38SEC (24-38) Urine Collection Type U cath Urine Color Yanira Urine Clarity Turbid Urine pH 5.0 Urine Specific [place] 1.020 Urine Protein 100mg/dL (NEG-TRACE) Urine Glucose (UA) Negativemg/dL (NEG) Urine Ketones (Stick) Tracemg/dL (NEG) Urine Blood Large (NEG) Urine Nitrite Negative (NEG) Urine Bilirubin Moderate (NEG) Urine Urobilinogen Dipstick 1.0mg/dL (0.2 mg/dL) Urine Leukocyte Esterase Large (NEG) Urine RBC >40/HPF (0-2) Urine WBC Tntc/HPF (0-4) Urine Squamous Epithelial Cells Few/LPF Urine Renal Epithelial Cells Occ/LPF Urine Bacteria Many/HPF (0-FEW) Urine Mucus Marked/LPF Sodium Level 129mmol/L (136-145) L Potassium Level 4.5mmol/L (3.5-5.1) Chloride Level 97mmol/L (98-107) L Carbon Dioxide Level 26mmol/L (21-32) Anion Gap 6 (6-14) Blood Urea Nitrogen 17mg/dL (7-20) Creatinine 2.0mg/dL (0.6-1.0) H Estimated GFR (Cockcroft-Gault) 26.0 BUN/Creatinine Ratio 9 (6-20) Glucose Level 118mg/dL (70-99) H Calcium Level 8.5mg/dL (8.5-10.1) Magnesium Level 2.0mg/dL (1.8-2.4) Total Bilirubin 0.3mg/dL (0.2-1.0) Aspartate Amino Transferase (AST) 15U/L (15-37) Alanine Aminotransferase (ALT) 15U/L (14-59) Alkaline Phosphatase 107U/L (46-116) Troponin I Quantitative 0.019ng/mL (0.000-0.055) ZF-Eat-Y-Type Natriuretic Peptide 5393pg/mL (0-124) H Total Protein 7.6g/dL (6.4-8.2) Albumin 2.6g/dL (3.4-5.0) L Albumin/Globulin Ratio 0.5 (1.0-1.7) L Lipase 163U/L (73-393) Thyroid Stimulating Hormone (TSH) 2.835uIU/mL (0.358-3.74) Urine Opiates Screen Pos (NEG) Urine Methadone Screen Neg (NEG) Urine Barbiturates Neg (NEG) Urine Phencyclidine Screen Neg (NEG) Urine Amphetamine/Methamphetamine Neg (NEG) Urine Benzodiazepines Screen Neg (NEG) Urine Cocaine Screen Neg (NEG) Urine Cannabinoids Screen Neg (NEG) Urine Ethyl Alcohol Neg (NEG) O2 Saturation 94% (92-99) Arterial Blood pH 7.32 (7.35-7.45) L Arterial Blood pCO2 at Patient Temp 46mmHg (35-46) Arterial Blood pO2 at Patient Temp 80mmHg (75-108) Arterial Blood HCO3 23mmol/L (21-28) Arterial Blood Base Excess -3mmol/L (-3-3) FiO2 28 Laboratory Tests 07/01/16 21:38 Laboratory Tests 07/01/16 21:38 EKG EKG Normal sinus rhythm at 90 bpm with low voltage no obvious ST elevation or depression with inverted T waves in leads V4 through V6 Radiology/Procedures Radiology/Procedures PROCEDURE CT head without contrast. HISTORY Altered mental status TECHNIQUE Noncontrast CT imaging was performed of the head. Exposure: One or more of the following individualized dose reduction techniques were utilized for this exam: 1. Automated exposure control. 2. Adjustment of the mA and/or kV according to patient size. 3. Use of iterative reconstruction technique. COMPARISON 04/13/2016 FINDINGS No acute intracranial hemorrhage is identified. Lemus-white differentiation of the major vascular territories is maintained. There is again mild supratentorial atrophy, ventricular size stable and considered within normal limits. There is no new intra-axial mass effect, midline shift, extra-axial fluid collection. Mastoid air cells are aerated. There is now air-fluid level of the right sphenoid sinus. There is right og bullosa. There is atherosclerotic calcification of the carotid siphons bilaterally. IMPRESSION 1. No acute intracranial abnormality is identified. If there is suspicion for evolving or acute ischemia, followup CT or MRI could be beneficial. There is mild supratentorial atrophy. 2. There is now air-fluid level of of the right sphenoid sinus, acute sinusitis a consideration. Electronically signed by: Jostin Marquez MD (July 01, 2016 22:33:48) DICTATED and SIGNED BY: JOSHUA MARQUEZ MD DATE: 07/01/16 2233 Course & Med Decision Making Course & Med Decision Making Patient is somewhat sleepy on exam and she does have urinary tract infection and sinusitis on workup. Given she is requiring oxygen and more obtunded will admit for further observation and treatment. Patient given Rocephin thus far for infection. Dragon Disclaimer Dragon Disclaimer This electronic medical record was generated, in whole or in part, using a voice recognition dictation system. Departure Departure Impression: Primary Impression: Encephalopathy Additional Impressions: Renal failure UTI (urinary tract infection) Sinusitis Disposition: ADMITTED INPATIENT Admitting Physician: Rocky Barrera Condition: STABLE Referrals: NON,STAFF (PCP) Problem Qualifiers MICHAEL SEGOVIA DO July 01, 2016 21:40
[2016-07-01 21:49] LABS: BASO % 1 % (0-3); EOS % 4 % (0-3); HEMATOCRIT 27.2 % (36.0-47.0); HEMOGLOBIN 9.1 g/dL (12.0-15.5); LYMPH # 0.9 x10^3/uL (1.0-4.8); LYMPH % 15 % (24-48); MEAN CORPUSCULAR HEMOGLOBIN 29 pg (25-35); MEAN CORPUSCULAR HGB CONC 33 g/dL (31-37); MEAN CORPUSCULAR VOLUME 88 fL (79-100); MONO % 9 % (0-9); NEUT % 72 % (31-73); PLATELET COUNT 183 x10^3/uL (140-400); RED CELL DISTRIBUTION WIDTH 18.2 % (11.5-14.5); WHITE BLOOD COUNT 6.1 x10^3/uL (4.0-11.0)
[2016-07-01 21:50] LABS: BILIRUBIN,URINE MODERATE (NEG); GLUCOSE,URINE NEGATIVE (NEG); NITRITE,URINE NEGATIVE (NEG); PROTEIN,URINE 100 mg/dL (NEG-TRACE)
[2016-07-01 21:57] LABS: BACTERIA,URINE MANY /HPF (0-FEW); RBC,URINE >40 /HPF (0-2); SQUAMOUS EPITHELIAL CELL,UR FEW /LPF; WBC,URINE TNTC /HPF (0-4)
[2016-07-01 21:58] LABS: INR 1.3 (0.8-1.1); PROTHROMBIN TIME PATIENT 15.1 SEC (11.7-14.0)
[2016-07-01 21:59] LABS: CALCIUM 8.5 mg/dL (8.5-10.1); POTASSIUM 4.5 mmol/L (3.5-5.1)
[2016-07-01 22:04] LABS: ALBUMIN 2.6 g/dL (3.4-5.0); ALBUMIN/GLOBULIN RATIO 0.5 (1.0-1.7); BARBITURATES NEG (NEG); BENZODIAZEPINES NEG (NEG); CANNABINOIDS NEG (NEG); COCAINE NEG (NEG); METHADONE NEG (NEG); OPIATES POS (NEG); PHENCYCLIDINE NEG (NEG); TOTAL BILIRUBIN 0.3 mg/dL (0.2-1.0); TOTAL PROTEIN 7.6 g/dL (6.4-8.2)
--- NOTE | 2016-07-01 22:35 | RAD ---
PROCEDURE CT head without contrast. HISTORY Altered mental status TECHNIQUE Noncontrast CT imaging was performed of the head. Exposure: One or more of the following individualized dose reduction techniques were utilized for this exam: 1. Automated exposure control. 2. Adjustment of the mA and/or kV according to patient size. 3. Use of iterative reconstruction technique. COMPARISON 04/13/2016 FINDINGS No acute intracranial hemorrhage is identified. Lemus-white differentiation of the major vascular territories is maintained. There is again mild supratentorial atrophy, ventricular size stable and considered within normal limits. There is no new intra-axial mass effect, midline shift, extra-axial fluid collection. Mastoid air cells are aerated. There is now air-fluid level of the right sphenoid sinus. There is right og bullosa. There is atherosclerotic calcification of the carotid siphons bilaterally. IMPRESSION 1. No acute intracranial abnormality is identified. If there is suspicion for evolving or acute ischemia, followup CT or MRI could be beneficial. There is mild supratentorial atrophy. 2. There is now air-fluid level of of the right sphenoid sinus, acute sinusitis a consideration. Electronically signed by: Jostin Villalobos MD (July 01, 2016 22:33:48)
[2016-07-01 22:53] LABS: BASE EXCESS COOX -3 mmol/L (-3-3); HCO3 COOX 23 mmol/L (21-28); PCO2 COOX 46 mmHg (35-46); PH COOX 7.32 (7.35-7.45); PO2 COOX 80 mmHg (75-108); SAT O2 COOX 94 % (92-99)
[2016-07-01 22:54] LABS: FIO2 COOX 28
[2016-07-01] MEDS ORDERED: ONDANSETRON PF 4 MG/2 ML VIAL. IV PRN (23:15)
[2016-07-02] VITALS (7 sets, daily range): BP systolic 112–140; BP diastolic 53–73
[2016-07-02] MEDS ORDERED: NYST1POW2 PO (00:19)
[2016-07-02] MEDS ORDERED: BUME2TAB PO (00:19)
[2016-07-02] MEDS ORDERED: LIDO700A4 TP (00:19)
[2016-07-02] MEDS ORDERED: DOCU-27 PO (00:19)
[2016-07-02] MEDS ORDERED: MAGN400T22 PO (00:19)
[2016-07-02] MEDS ORDERED: HYDR-2666 PO (00:19)
[2016-07-02] MEDS ORDERED: FAMO20TA5 PO (00:19)
[2016-07-02] MEDS ORDERED: FERR-26 PO (00:19)
[2016-07-02] MEDS ORDERED: FLUO20CA16 PO (00:19)
[2016-07-02] MEDS ORDERED: NICO1PAT27 TD (00:19)
[2016-07-02] MEDS ORDERED: BISA-42 PO (00:19)
[2016-07-02] MEDS ORDERED: GLIM4TAB2 PO (00:19)
[2016-07-02] MEDS ORDERED: VALS80TA22 PO (00:19)
[2016-07-02] MEDS ORDERED: SIME80TA14 PO (00:19)
[2016-07-02] MEDS ORDERED: TAMS0.4C97 PO (00:19)
[2016-07-02] MEDS ORDERED: MULT-245 PO (00:19)
[2016-07-02] MEDS ORDERED: CARV6.25 PO (00:19)
[2016-07-02] MEDS ORDERED: FENT1PAT90 TP (00:19)
--- NOTE | 2016-07-02 04:22 | ACF ---
Admission Forms Criteria MENTAL STATUS CHANGE Clinical Indications for Inpatient Care (Place 'X' for any and all applicable criteria): Ongoing inpatient care may be needed for 1 or more of the following(1)(2)(3)(5)( 6): [X]I. Suspected serious etiology (eg, medical disorder, HAND SAMPLE MAKER event) of altered mental status [ ]II. Danger to self or others not manageable at lower level of care [ ]III. Grave disability (eg, inability to perform self care necessary at lower level of care) [ ]IV. Agitation or inappropriate behavior interfering with care for primary condition (eg, attempting to discontinue lines or drains prematurely, unable to cooperate with respiratory care) [ ]V. Delirium [A] [D][E] as described by 1 or more of the following(26): [ ]a) Delirium due to alcohol or sedative [F] withdrawal [ ]b) Delirium of uncertain etiology that has not responded to appropriate empiric treatment [ ]c) Delirium that prevents performance of a life-sustaining function (eg, feeding or hydrating oneself) [ ]. General contraindications and/or Inappropriate clinical situations for Observational Care in patients with Mental Status Change, when ANY ONE of the following is required: [ ]a) Prediction of prolongation of LOS based on ANY ONE of the following may be considered as a contraindication for observational care 2, 3, 4, 5, 6, 7, 8, 9, 10, 11 [ ]i) Age > 65 yrs. [ ]ii) Patient arriving by ambulance [ ]iii) Patient with high acuity [ ]iv) Patient requiring vital sign monitoring [ ]v) Patient on IV medication [ ]b) Systolic blood pressures greater than or equal to 180mmHg 3, 12 [ ]c) Patient with altered mental status including delirium and other alteration of consciousness, (3) [ ]d) Patient whose discharge disposition will be to a penitentiary home or rehabilitation home should not be managed in Emergency Department Observation Unit. CMS rule requires 3 days hospital stay before such placement.3,13 [ ]e) Patient with failure to thrive due to broad array of etiologies 3,16,17 [ ]f) Inability to ambulate 3,14 Extended stay beyond goal length of stay for the primary condition may be needed until ALL of the following are present(3)(5): [ ]a) Underlying medical etiology of mental status change is absent, or has been established and adequately treated [ ]b) Danger to self or others is absent or manageable at lower level of care. [ ]c) Behavior crisis management, including physical or chemical restraints, is not required or available at lower level of car [ ]d) Substance or alcohol withdrawal is absent or manageable at lower level of care. [ ]e) Behavioral symptoms (eg, agitation, somnolence, inappropriate behavior) are absent, or are manageable at lower level of care. The original [facility] [employer] content created by [facility] has been revised. The portions of the content which have been revised are identified through the use of italic text or in bold, and [facility] has neither reviewed nor approved the modified material. All other unmodified content is copyright [facility]. Please see references footnoted in the original [facility] edition 2016 Admission Criteria Met?: Yes STEVE FARAH July 02, 2016 04:22
[2016-07-02 06:04] LABS: BASO % 1 % (0-3); EOS % 3 % (0-3); HEMOGLOBIN 9.2 g/dL (12.0-15.5); LYMPH % 18 % (24-48); MEAN CORPUSCULAR HEMOGLOBIN 29 pg (25-35); MEAN CORPUSCULAR HGB CONC 33 g/dL (31-37); MEAN CORPUSCULAR VOLUME 88 fL (79-100); MONO % 10 % (0-9); NEUT % 68 % (31-73); PLATELET COUNT 178 x10^3/uL (140-400); RED BLOOD COUNT 3.19 x10^6/uL (3.50-5.40); RED CELL DISTRIBUTION WIDTH 18.2 % (11.5-14.5); WHITE BLOOD COUNT 5.7 x10^3/uL (4.0-11.0)
[2016-07-02 06:07] LABS: CALCIUM 8.5 mg/dL (8.5-10.1); CREATININE 2.1 mg/dL (0.6-1.0); GFR 24.5; POTASSIUM 4.8 mmol/L (3.5-5.1)
--- NOTE | 2016-07-02 06:50 | EKG ---
[facility] [address] [place] [address] Test Date: 2016-07-01 Test Time: 21:32:49 Pat Name: CHARLIE YBARRA Department: Room: 202 1 Gender: F Care Nurse Rn: : 1960 Requested By: MICHAEL SEGOVIA Order Number: [id number] Reading MD: Rosa Hay Measurements Intervals [place] Rate: 90 P: 38 PA: 152 QRS: 78 QRSD: 96 T: 155 QT: 394 QTc: 486 Interpretive Statements SINUS RHYTHM LOW LIMB LEAD VOLTAGE T ABNORMALITY IN ANTEROLATERAL LEADS INFEROLATERAL LEADS ] ABNORMAL ECG Electronically Signed On 07-02-2016 20:46:57 CDT by Rosa Hay
[2016-07-02] MEDS ORDERED: DEXTROSE 50% 25 GM / 50ML DISP.SYRIN. IV ONE (07:21)
[2016-07-02] MEDS ORDERED: DEXTROSE 50% 25 GM / 50ML DISP.SYRIN. IV PRN (07:30)
--- NOTE | 2016-07-02 07:55 | RAD ---
Indication chest and shoulder pain. A single view of the chest was obtained and is compared to an examination 04/14/2016. Heart size is slightly enlarged but unchanged. There is suspect very mild pulmonary vascular congestion similar to the previous exam. There is no consolidated pneumonia. Unipolar defibrillating and cardiac pacing device is noted as well as a right-sided dialysis catheter. IMPRESSION: Stable mild cardiomegaly. Suspect mild pulmonary vascular congestion. No focal process seen in the chest or significant change compared to the prior study
--- NOTE | 2016-07-02 08:00 | RAD ---
Indication chest and shoulder pain for 3 days. Internally and externally rotated views of the right shoulder as well as a Y view were obtained. No acute or significant bony finding is seen. Dialysis catheter is noted. IMPRESSION: No acute bony finding
[2016-07-02] MEDS ORDERED: ACETAMINOPHEN 325 MG TABLET. PO PRN (09:00)
[2016-07-02] MEDS ORDERED: traMADol 50 MG TABLET PO PRN (09:00)
[2016-07-02] MEDS ORDERED: ALBUTEROL SULFATE 2.5 MG/3 ML NEBU. NEB PRN (09:15)
[2016-07-02] MEDS ORDERED: BISACODYL 5 MG TABLET.DR. PO PRN (09:30)
--- NOTE | 2016-07-02 09:56 | PDOC1 ---
History and Physical Date of Admission Date of Admission DATE: 07/02/16 TIME: 09:49 Identification/Chief Complaint Chief Complaint shoulder pain and confusion Problems: Source Source: Chart review, Patient History of Present Illness History of Present Illness transferred from [facility], has been SNU there, for confusion and lethargy. Last night has trouble following commands, feels better today, but yesterday, after returning from dialysis she had been more confused. Per prison staff she was complaining of right shoulder pain and her urine had an abnormal color more alert and animated this AM than described in the ER Sa02 was 90% on 3 liters in ER Past Medical History Cardiovascular: CAD, CHF, HTN, Hyperlipidemia Pulmonary: COPD, Other CENTRAL NERVOUS SYSTEM: Periperal neuropathy GI: GERD, Other Hepatobiliary: Other Psych: Depression Renal/: Acute renal failure, UTI Endocrine: Diabetes Past Surgical History Past Surgical History: Pacemaker, Cataract Removal, Other Family History Family History: Diabetes, Hypertension Social History Smoke: No ALCOHOL: rare Current Problem List Problem List Problems Medical Problems: (1) Encephalopathy Status: Acute (2) Renal failure Status: Acute (3) Sinusitis Status: Acute (4) UTI (urinary tract infection) Status: Acute Problems: Current Medications Current Medications Current Medications Ceftriaxone Sodium 1 gm/ Sodium Chloride 50 ml @ 100 mls/hr Q24H IV ; Start 07/02/16 at 22:00 Ceftriaxone Sodium (Rocephin 1gm Ivpb For Omni) 50 ml @ 100 mls/hr 1X ONCE IV Last administered on 07/01/16 22:34; Start 07/01/16 at 22:30; Stop 07/01/16 at 22:59; Status DC Ondansetron HCl (Zofran) 4 mg PRN Q8HRS PRN IV NAUSEA/VOMITING; Start 07/01/16 at 23:15; Stop 07/02/16 at 23:14 Dextrose (Dextrose 50%-Water Syringe) 25 gm STK-MED ONCE IV ; Start 07/02/16 at 07:21; Stop 07/02/16 at 07:22; Status DC Dextrose (Dextrose 50%-Water Syringe) 12.5 gm PRN Q15MIN PRN IV SEE COMMENTS Last administered on 07/02/16 07:25; Start 07/02/16 at 07:30 Albuterol Sulfate (Ventolin Neb Soln) 2.5 mg PRN QID PRN NEB SHORTNESS OF BREATH; Start 07/02/16 at 09:15 Tramadol HCl (Ultram) 50 mg PRN Q6HRS PRN PO PAIN; Start 07/02/16 at 09:00 Acetaminophen (Tylenol) 650 mg PRN Q6HRS PRN PO pain; Start 07/02/16 at 09:00 Aspirin (Children'S Aspirin) 81 mg DAILY PO ; Start 07/02/16 at 10:00 Bisacodyl (Dulcolax Tab) 5 mg PRN DAILY PRN PO CONSTIPATION; Start 07/02/16 at 09:30 Carvedilol (Coreg) 6.25 mg BIDWMEALS PO ; Start 07/02/16 at 10:00 Docusate Sodium (Colace) 100 mg DAILY PO ; Start 07/02/16 at 10:00 Famotidine (Pepcid) 20 mg HS PO ; Start 07/02/16 at 21:00 Fentanyl (Duragesic 25mcg/ Hr Patch) 1 patch Q3DAYS TD ; Start 07/02/16 at 10:00 Ferrous Sulfate (Feosol) 325 mg TIDWMEALS PO ; Start 07/02/16 at 12:00 Fluoxetine HCl (Prozac) 20 mg DAILY PO ; Start 07/02/16 at 10:00 Acetaminophen/ Hydrocodone Bitart (Lortab 5/325) 1 tab PRN Q4HRS PRN PO PAIN; Start 07/02/16 at 09:30 Albuterol/ Ipratropium (Duoneb) 3 ml RTQID NEB ; Start 07/02/16 at 10:00 Lidocaine (Lidoderm) 1 patch DAILY TP ; Start 07/02/16 at 10:00; Stop 07/02/16 at 10:00; Status DC Magnesium Oxide (Magnesium Oxide) 400 mg DAILY PO ; Start 07/02/16 at 10:00 Nicotine (Nicoderm Cq 7mg) 1 patch DAILY TD ; Start 07/02/16 at 10:00 Simethicone (Gas-X) 80 mg QID PO ; Start 07/02/16 at 10:00 Tamsulosin HCl (Flomax) 0.4 mg HS PO ; Start 07/02/16 at 21:00 Bumetanide (Bumex) 2 mg DAILY PO ; Start 07/02/16 at 10:00 Gabapentin (Neurontin) 300 mg TID PO ; Start 07/02/16 at 14:00 Glimepiride (Amaryl) 4 mg DAILY PO ; Start 07/02/16 at 10:00 Multivitamins (Thera M Plus) 1 tab DAILY PO ; Start 07/02/16 at 10:00 Nystatin (Nystop) 1 gabrielle TID TP ; Start 07/02/16 at 14:00 Losartan Potassium (Cozaar) 50 mg DAILY PO ; Start 07/02/16 at 10:00 Lidocaine (Lidoderm) 2 patch DAILY TP ; Start 07/02/16 at 10:00 Methylprednisolone Acetate (DEPO-Medrol 40MG VIAL) 40 mg 1X ONCE IM ; Start 07/02/16 at 10:00; Stop 07/02/16 at 10:01 Bupivacaine HCl (Sensorcaine-Mpf 0.25%) 10 ml 1X ONCE IJ ; Start 07/02/16 at 10: 00; Stop 07/02/16 at 10:01 Methylprednisolone Acetate (DEPO-Medrol 40MG VIAL) 40 mg 1X ONCE IM ; Start 07/02/16 at 10:00; Stop 07/02/16 at 10:01 Diclofenac Sodium (Voltaren) 1 gabrielle BID TP ; Start 07/02/16 at 11:00 Active Scripts Active Reported Valsartan 80 Mg Tablet 80 Mg PO DAILY Simethicone 80 Mg Tab.chew 80 Mg PO QID Prozac (Fluoxetine Hcl) 20 Mg Capsule 20 Mg PO DAILY Famotidine 20 Mg Tablet 20 Mg PO HS Nystatin 1 Each Powder.ea. 1 Each PO TID NICODERM CQ 7mg (Nicotine) 1 Each Patch.td24 1 Patch TD DAILY Multi Vitamin Daily (Multivitamin) 1 Each Tablet 1 Each PO DAILY Mag-Oxide (Magnesium Oxide) 400 Mg Tablet 1 Tab PO DAILY Hydrocodone-Apap 5-325 (Hydrocodone Bit/Acetaminophen) 1 Each Tablet 1 Tab PO PRN Q4HRS PRN Lidoderm (Lidocaine) 700 Mg Adh..patch 1 Patch TP DAILY Flomax (Tamsulosin Hcl) 0.4 Mg Cap.er.24h 0.4 Mg PO HS Ferrous Sulfate 325 Mg Tablet 325 Mg PO TID DURAGESIC 25mcg/hr (Fentanyl) 1 Each Patch.td72 1 Patch TP Q3DAYS Coreg (Carvedilol) 6.25 Mg Tablet 6.25 Mg PO BIDWMEALS Colace (Docusate Sodium) 100 Mg Capsule 100 Mg PO DAILY Bumetanide 2 Mg Tablet 1 Tab PO DAILY Dulcolax (Bisacodyl) 5 Mg Tablet.dr 5 Mg PO PRN DAILY PRN Glimepiride 4 Mg Tablet 4 Mg PO DAILY Gabapentin 300 Mg Capsule 300 Mg PO TID Acetaminophen 325 Mg Capsule 650 Mg PO Q6HRS PRN Duoneb 0.5-3(2.5) Mg/3 Ml (Albuterol/Ipratropium) 3 Ml Ampul.neb 3 Ml NEB QID Aspirin 81 Mg Tab.chew 81 Mg PO DAILY Allergies Allergies: Coded Allergies: sulfamethoxazole (Verified Allergy, Severe, Hives, 03/18/13) trimethoprim (Verified Allergy, Severe, Hives, 03/18/13) venom-honey bee (Verified Allergy, Severe, Anaphylaxis, 03/18/13) I S O L A T I O N *CONTACT* (Verified Allergy, Unknown, 04/15/16) mrsa ROS General: YES: Chills, Fatigue, Malaise PSYCHOLOGICAL ROS: YES: Memory difficulties, No: Anxiety, Behavioral Disorder, Concentration difficultie, Decreased libido , Depression, Disorientation, Hallucinations, Hostility, Irritablity, Mood Swings, Obsessive thoughts, Other, Physical abuse, Sexual abuse, Sleep disturbances, Suicidal ideation Eyes: No Blurry vision, No Decreased vision, No Double vision, No Dry eyes, No Excessive tearing, No Eye Pain, No Itchy Eyes, No Loss of vision, No Other, No Photophobia, No Scotomata, No Uses contacts, No Uses glasses HEENT: YES: Heacaches, No: Epistaxis, Hearing change, Nasal congestion, Nasal discharge, Oral lesions, Other, Sinus pain, Sneezing, Snoring, Sore Throat, Tinnitus, Vertigo, Visual Changes, Vocal changes Respiratory: No: Cough, Hemoptysis, Orthopnea, Other, Pleuritic Pain, SOB with excertion, Shortness of breath, Sputum Changes, Stridor, Tachypnea, Wheezing Cardiovascular: No Chest Pain, No Edema, No Lt Headedness, No Orthopnea, No Other, No Palpitations, No Paroxysmal Noc. Dyspnea Gastrointestinal: No Abdominal Pain, No Constipation, No Diarrhea, No Hematochezia, No Melena, No Nausea, No Other, No Vomiting Genitourinary: No , No , No , No , No , No , No , No Discharge, No Dysuria, No Flank Pain, No Frequency, No Hematuria, No Incontinence, No Other, No Pain, No Retention, No Urgency Musculoskeletal: Yes Joint Pain, Yes Joint Stiffness, Yes Pain In: (right knee , right shoulder), No Gait Disturbance, No Joint Swelling, No Muscle Pain, No Muscular Weakness , No Other, No Swelling In: Neurological: Yes Confusion, Yes Gait Disturbance, No Behavorial Changes, No Bowel/Bladder ControlChng, No Dizziness, No Headaches, No Impaired Coord/balance, No Memory Loss, No Numbness/Tingling, No Other, No Seizures, No Speech Problems, No Tremors, No Visual Changes, No Weakness Skin: Yes Dry Skin, Yes Mole Changes Physical Exam Physical Exam tele, reg 92, sinus General: Alert, Oriented X3, Cooperative, mild distress HEENT: Atraumatic, EOMI, Mucous membr. moist/pink Lungs: Clear to auscultation, Normal air movement Heart: no gallops, no murmurs Abdomen: Normal bowel sounds, Soft, No tenderness (obese) Extremities: No clubbing, No edema Skin: Other (LE skin thickening, not fully sclerotic, tr edema to feet) Neuro: Normal speech, Normal tone Psych/Mental Status: Mental status NL (she reports much better this AM), Mood NL Vitals Vitals Vital Signs Date Time Temp Pulse Resp B/P Pulse Ox O2 Delivery O2 Flow Rate FiO2 07/02/16 07:00 98.6 96 18 122/60 94 Nasal Cannula 2.0 98.6 Labs Labs Laboratory Tests Test 07/01/16 21:38 07/01/16 22:40 07/02/16 05:00 07/02/16 07:19 White Blood Count 6.1x10^3/uL (4.0-11.0) 5.7x10^3/uL (4.0-11.0) Red Blood Count 3.10x10^6/uL (3.50-5.40) 3.19x10^6/uL (3.50-5.40) Hemoglobin 9.1g/dL (12.0-15.5) 9.2g/dL (12.0-15.5) Hematocrit 27.2% (36.0-47.0) 28.0% (36.0-47.0) Mean Corpuscular Volume 88fL (79-100) 88fL (79-100) Mean Corpuscular Hemoglobin 29pg (25-35) 29pg (25-35) Mean Corpuscular Hemoglobin Concent 33g/dL (31-37) 33g/dL (31-37) Red Cell Distribution Width 18.2% (11.5-14.5) 18.2% (11.5-14.5) Platelet Count 183x10^3/uL (140-400) 178x10^3/uL (140-400) Neutrophils (%) (Auto) 72% (31-73) 68% (31-73) Lymphocytes (%) (Auto) 15% (24-48) 18% (24-48) Monocytes (%) (Auto) 9% (0-9) 10% (0-9) Eosinophils (%) (Auto) 4% (0-3) 3% (0-3) Basophils (%) (Auto) 1% (0-3) 1% (0-3) Neutrophils # (Auto) 4.4x10^3uL (1.8-7.7) 3.9x10^3uL (1.8-7.7) Lymphocytes # (Auto) 0.9x10^3/uL (1.0-4.8) 1.0x10^3/uL (1.0-4.8) Monocytes # (Auto) 0.5x10^3/uL (0.0-1.1) 0.5x10^3/uL (0.0-1.1) Eosinophils # (Auto) 0.2x10^3/uL (0.0-0.7) 0.2x10^3/uL (0.0-0.7) Basophils # (Auto) 0.0x10^3/uL (0.0-0.2) 0.0x10^3/uL (0.0-0.2) Prothrombin Time 15.1SEC (11.7-14.0) Prothromb Time International Ratio 1.3 (0.8-1.1) Activated Partial Thromboplast Time 38SEC (24-38) Urine Collection Type U cath Urine Color Yanira Urine Clarity Turbid Urine pH 5.0 Urine Specific [place] 1.020 Urine Protein 100mg/dL (NEG-TRACE) Urine Glucose (UA) Negativemg/dL (NEG) Urine Ketones (Stick) Tracemg/dL (NEG) Urine Blood Large (NEG) Urine Nitrite Negative (NEG) Urine Bilirubin Moderate (NEG) Urine Urobilinogen Dipstick 1.0mg/dL (0.2 mg/dL) Urine Leukocyte Esterase Large (NEG) Urine RBC >40/HPF (0-2) Urine WBC Tntc/HPF (0-4) Urine Squamous Epithelial Cells Few/LPF Urine Renal Epithelial Cells Occ/LPF Urine Bacteria Many/HPF (0-FEW) Urine Mucus Marked/LPF Sodium Level 129mmol/L (136-145) 132mmol/L (136-145) Potassium Level 4.5mmol/L (3.5-5.1) 4.8mmol/L (3.5-5.1) Chloride Level 97mmol/L (98-107) 98mmol/L (98-107) Carbon Dioxide Level 26mmol/L (21-32) 27mmol/L (21-32) Anion Gap 6 (6-14) 7 (6-14) Blood Urea Nitrogen 17mg/dL (7-20) 19mg/dL (7-20) Creatinine 2.0mg/dL (0.6-1.0) 2.1mg/dL (0.6-1.0) Estimated GFR (Cockcroft-Gault) 26.0 24.5 BUN/Creatinine Ratio 9 (6-20) Glucose Level 118mg/dL (70-99) 59mg/dL (70-99) Calcium Level 8.5mg/dL (8.5-10.1) 8.5mg/dL (8.5-10.1) Magnesium Level 2.0mg/dL (1.8-2.4) Total Bilirubin 0.3mg/dL (0.2-1.0) Aspartate Amino Transf (AST/SGOT) 15U/L (15-37) Alanine Aminotransferase (ALT/SGPT) 15U/L (14-59) Alkaline Phosphatase 107U/L (46-116) Troponin I Quantitative 0.019ng/mL (0.000-0.055) ZE-Tsx-V-Type Natriuretic Peptide 5393pg/mL (0-124) Total Protein 7.6g/dL (6.4-8.2) Albumin 2.6g/dL (3.4-5.0) Albumin/Globulin Ratio 0.5 (1.0-1.7) Lipase 163U/L (73-393) Thyroid Stimulating Hormone (TSH) 2.835uIU/mL (0.358-3.74) Urine Opiates Screen Pos (NEG) Urine Methadone Screen Neg (NEG) Urine Barbiturates Neg (NEG) Urine Phencyclidine Screen Neg (NEG) Urine Amphetamine/Methamphetamine Neg (NEG) Urine Benzodiazepines Screen Neg (NEG) Urine Cocaine Screen Neg (NEG) Urine Cannabinoids Screen Neg (NEG) Urine Ethyl Alcohol Neg (NEG) O2 Saturation 94% (92-99) Arterial Blood pH 7.32 (7.35-7.45) Arterial Blood pCO2 at Patient Temp 46mmHg (35-46) Arterial Blood pO2 at Patient Temp 80mmHg (75-108) Arterial Blood HCO3 23mmol/L (21-28) Arterial Blood Base Excess -3mmol/L (-3-3) FiO2 28 Glucose (Fingerstick) 56mg/dL (70-99) Test 07/02/16 07:45 Glucose (Fingerstick) 96mg/dL (70-99) Laboratory Tests Test 07/01/16 21:38 07/01/16 22:40 07/02/16 05:00 07/02/16 07:19 White Blood Count 6.1x10^3/uL (4.0-11.0) 5.7x10^3/uL (4.0-11.0) Red Blood Count 3.10x10^6/uL (3.50-5.40) 3.19x10^6/uL (3.50-5.40) Hemoglobin 9.1g/dL (12.0-15.5) 9.2g/dL (12.0-15.5) Hematocrit 27.2% (36.0-47.0) 28.0% (36.0-47.0) Mean Corpuscular Volume 88fL (79-100) 88fL (79-100) Mean Corpuscular Hemoglobin 29pg (25-35) 29pg (25-35) Mean Corpuscular Hemoglobin Concent 33g/dL (31-37) 33g/dL (31-37) Red Cell Distribution Width 18.2% (11.5-14.5) 18.2% (11.5-14.5) Platelet Count 183x10^3/uL (140-400) 178x10^3/uL (140-400) Neutrophils (%) (Auto) 72% (31-73) 68% (31-73) Lymphocytes (%) (Auto) 15% (24-48) 18% (24-48) Monocytes (%) (Auto) 9% (0-9) 10% (0-9) Eosinophils (%) (Auto) 4% (0-3) 3% (0-3) Basophils (%) (Auto) 1% (0-3) 1% (0-3) Neutrophils # (Auto) 4.4x10^3uL (1.8-7.7) 3.9x10^3uL (1.8-7.7) Lymphocytes # (Auto) 0.9x10^3/uL (1.0-4.8) 1.0x10^3/uL (1.0-4.8) Monocytes # (Auto) 0.5x10^3/uL (0.0-1.1) 0.5x10^3/uL (0.0-1.1) Eosinophils # (Auto) 0.2x10^3/uL (0.0-0.7) 0.2x10^3/uL (0.0-0.7) Basophils # (Auto) 0.0x10^3/uL (0.0-0.2) 0.0x10^3/uL (0.0-0.2) Prothrombin Time 15.1SEC (11.7-14.0) Prothromb Time International Ratio 1.3 (0.8-1.1) Activated Partial Thromboplast Time 38SEC (24-38) Urine Collection Type U cath Urine Color Yanira Urine Clarity Turbid Urine pH 5.0 Urine Specific [place] 1.020 Urine Protein 100mg/dL (NEG-TRACE) Urine Glucose (UA) Negativemg/dL (NEG) Urine Ketones (Stick) Tracemg/dL (NEG) Urine Blood Large (NEG) Urine Nitrite Negative (NEG) Urine Bilirubin Moderate (NEG) Urine Urobilinogen Dipstick 1.0mg/dL (0.2 mg/dL) Urine Leukocyte Esterase Large (NEG) Urine RBC >40/HPF (0-2) Urine WBC Tntc/HPF (0-4) Urine Squamous Epithelial Cells Few/LPF Urine Renal Epithelial Cells Occ/LPF Urine Bacteria Many/HPF (0-FEW) Urine Mucus Marked/LPF Sodium Level 129mmol/L (136-145) 132mmol/L (136-145) Potassium Level 4.5mmol/L (3.5-5.1) 4.8mmol/L (3.5-5.1) Chloride Level 97mmol/L (98-107) 98mmol/L (98-107) Carbon Dioxide Level 26mmol/L (21-32) 27mmol/L (21-32) Anion Gap 6 (6-14) 7 (6-14) Blood Urea Nitrogen 17mg/dL (7-20) 19mg/dL (7-20) Creatinine 2.0mg/dL (0.6-1.0) 2.1mg/dL (0.6-1.0) Estimated GFR (Cockcroft-Gault) 26.0 24.5 BUN/Creatinine Ratio 9 (6-20) Glucose Level 118mg/dL (70-99) 59mg/dL (70-99) Calcium Level 8.5mg/dL (8.5-10.1) 8.5mg/dL (8.5-10.1) Magnesium Level 2.0mg/dL (1.8-2.4) Total Bilirubin 0.3mg/dL (0.2-1.0) Aspartate Amino Transf (AST/SGOT) 15U/L (15-37) Alanine Aminotransferase (ALT/SGPT) 15U/L (14-59) Alkaline Phosphatase 107U/L (46-116) Troponin I Quantitative 0.019ng/mL (0.000-0.055) OF-Crt-N-Type Natriuretic Peptide 5393pg/mL (0-124) Total Protein 7.6g/dL (6.4-8.2) Albumin 2.6g/dL (3.4-5.0) Albumin/Globulin Ratio 0.5 (1.0-1.7) Lipase 163U/L (73-393) Thyroid Stimulating Hormone (TSH) 2.835uIU/mL (0.358-3.74) Urine Opiates Screen Pos (NEG) Urine Methadone Screen Neg (NEG) Urine Barbiturates Neg (NEG) Urine Phencyclidine Screen Neg (NEG) Urine Amphetamine/Methamphetamine Neg (NEG) Urine Benzodiazepines Screen Neg (NEG) Urine Cocaine Screen Neg (NEG) Urine Cannabinoids Screen Neg (NEG) Urine Ethyl Alcohol Neg (NEG) O2 Saturation 94% (92-99) Arterial Blood pH 7.32 (7.35-7.45) Arterial Blood pCO2 at Patient Temp 46mmHg (35-46) Arterial Blood pO2 at Patient Temp 80mmHg (75-108) Arterial Blood HCO3 23mmol/L (21-28) Arterial Blood Base Excess -3mmol/L (-3-3) FiO2 28 Glucose (Fingerstick) 56mg/dL (70-99) Test 07/02/16 07:45 Glucose (Fingerstick) 96mg/dL (70-99) VTE Prophylaxis Ordered VTE Prophylaxis Devices: Yes VTE Pharmacological Prophylaxi: Contraindicated Assessment/Plan Assessment/Plan acute metabolic encephalopathy, UTI, P 92, prior RR 20, minimal criteria for sepsis, ESRD DM2, decent control morbid obesity, BMI 45 w/ mod/severe malnutrition, Albumin 2.6, weakness and debility, cannot walk without assist, was in SNU hypoxia, NOS, ESRD, obesity, pickwickian anemia of CKD admit, IV abx, cx pending RIght shoulder pain, acute to AC joint, Physiatry consult, ice, lidoderm patch, systemic pain meds admit EMEKA MARY MD July 02, 2016 09:56
[2016-07-02] MEDS ORDERED: methylPREDNISolone ACETATE 40 MG/ML VIAL. IM ONE ×2 (10:00)
[2016-07-02] MEDS: GLIMEPIRIDE 2 MG TABLET. PO SCH (10:00)
[2016-07-02] MEDS ORDERED: LIDOCAINE (700MG/PATCH) PATCH. TP SCH (10:00)
[2016-07-02] MEDS ORDERED: fentaNYL 25MCG/HR PATCH 1 PATCH PATCH.TD72 TD SCH (10:00)
[2016-07-02] MEDS ORDERED: IPRATRPIUM/ALBUTEROL 0.5/2.5MG 3 ML NEBU. NEB SCH (10:00)
[2016-07-02] MEDS ORDERED: BUPIVACAINE MPF 0.25% 10 ML VIAL. IJ ONE (10:00)
[2016-07-02] MEDS: BUMETANIDE 1 MG TABLET. PO SCH (10:09)
[2016-07-02] MEDS: DOCUSATE SODIUM 100 MG CAPSULE. PO SCH (10:10)
[2016-07-02] MEDS: CARVEDILOL 6.25 MG TABLET. PO SCH ×2 (10:11→16:37)
[2016-07-02] MEDS: ASPIRIN CHEWABLE 81 MG TABLET. PO SCH (10:12)
[2016-07-02] MEDS: FLUoxetine HCL 20 MG CAPSULE PO SCH (10:12)
[2016-07-02] MEDS: MAGNESIUM OXIDE 400 MG TABLET PO SCH (10:12)
[2016-07-02] MEDS: LOSARTAN POTASSIUM 50 MG TABLET. PO SCH (10:12)
[2016-07-02] MEDS: MULTIVITAMIN with MINERAL TABLET. PO SCH (10:12)
[2016-07-02] MEDS: SIMETHICONE 80 MG TAB.CHEW PO SCH ×4 (10:15→21:07)
[2016-07-02] MEDS: NICOTINE 7MG PATCH. TD SCH (10:17)
[2016-07-02] MEDS: DICLOFENAC SODIUM 1% TOPICAL GEL 100GM TUBE. TP SCH ×2 (10:17→21:09)
[2016-07-02] MEDS: LIDOCAINE (700MG/PATCH) PATCH. TP SCH (10:17)
--- NOTE | 2016-07-02 10:20 | PDOC4 ---
PROCEDURE Procedure At her request,I have injected her right knee and right shoulder with marcaine and depomedrol solution under aseptic skin technique and she tolerated the procedures satisfactorily without any side effects. ALEXANDRO MEADE MD July 02, 2016 10:20
[2016-07-02] MEDS: HYDROcodone/APAP 5/325MG 1 TAB TABLET PO PRN (10:52)
[2016-07-02] MEDS: FERROUS SULFATE 325 MG TABLET. PO SCH ×2 (12:00→16:37)
--- NOTE | 2016-07-02 13:26 | PDOC2 ---
CONSULT Date of Consult Date of Consult DATE: 07/02/16 TIME: 13:21 Reason for Consult Reason for Consult: ESRD Referring Physician Referring Physician: ROBYN Identification/Chief Complaint Chief Complaint AMS Problems: Source Source: Chart review History of Present Illness Reason for Visit: DICTATED Past Medical History Cardiovascular: CAD, CHF, HTN, Hyperlipidemia Pulmonary: COPD, Other CENTRAL NERVOUS SYSTEM: Periperal neuropathy GI: GERD, Other Hepatobiliary: Other Psych: Depression Renal/: Acute renal failure, UTI Endocrine: Diabetes Past Surgical History Past Surgical History: Pacemaker, Cataract Removal, Other Family History Family History: Diabetes, Hypertension Social History No ALCOHOL: rare Drugs: None Lives: [facility] Current Problem List Problem List Problems Medical Problems: (1) Encephalopathy Status: Acute (2) Renal failure Status: Acute (3) Sinusitis Status: Acute (4) UTI (urinary tract infection) Status: Acute Current Medications Current Medications Current Medications Ceftriaxone Sodium 1 gm/ Sodium Chloride 50 ml @ 100 mls/hr Q24H IV ; Start 07/02/16 at 22:00 Ceftriaxone Sodium (Rocephin 1gm Ivpb For Omni) 50 ml @ 100 mls/hr 1X ONCE IV Last administered on 07/01/16 22:34; Start 07/01/16 at 22:30; Stop 07/01/16 at 22:59; Status DC Ondansetron HCl (Zofran) 4 mg PRN Q8HRS PRN IV NAUSEA/VOMITING; Start 07/01/16 at 23:15; Stop 07/02/16 at 23:14 Dextrose (Dextrose 50%-Water Syringe) 25 gm STK-MED ONCE IV ; Start 07/02/16 at 07:21; Stop 07/02/16 at 07:22; Status DC Dextrose (Dextrose 50%-Water Syringe) 12.5 gm PRN Q15MIN PRN IV SEE COMMENTS Last administered on 07/02/16 07:25; Start 07/02/16 at 07:30 Albuterol Sulfate (Ventolin Neb Soln) 2.5 mg PRN QID PRN NEB SHORTNESS OF BREATH; Start 07/02/16 at 09:15 Tramadol HCl (Ultram) 50 mg PRN Q6HRS PRN PO MILD PAIN; Start 07/02/16 at 09:00 Acetaminophen (Tylenol) 650 mg PRN Q6HRS PRN PO pain; Start 07/02/16 at 09:00 Aspirin (Children'S Aspirin) 81 mg DAILY PO Last administered on 07/02/16 10:12 ; Start 07/02/16 at 10:00 Bisacodyl (Dulcolax Tab) 5 mg PRN DAILY PRN PO CONSTIPATION; Start 07/02/16 at 09:30 Carvedilol (Coreg) 6.25 mg BIDWMEALS PO Last administered on 07/02/16 10:11; Start 07/02/16 at 10:00 Docusate Sodium (Colace) 100 mg DAILY PO Last administered on 07/02/16 10:10; Start 07/02/16 at 10:00 Famotidine (Pepcid) 20 mg HS PO ; Start 07/02/16 at 21:00 Fentanyl (Duragesic 25mcg/ Hr Patch) 1 patch Q3DAYS TD ; Start 07/02/16 at 10:00 Ferrous Sulfate (Feosol) 325 mg TIDWMEALS PO ; Start 07/02/16 at 12:00 Fluoxetine HCl (Prozac) 20 mg DAILY PO Last administered on 07/02/16 10:12; Start 07/02/16 at 10:00 Acetaminophen/ Hydrocodone Bitart (Lortab 5/325) 1 tab PRN Q4HRS PRN PO MODERATE-SEVERE PAIN Last administered on 07/02/16 10:52; Start 07/02/16 at 09:30 Albuterol/ Ipratropium (Duoneb) 3 ml RTQID NEB ; Start 07/02/16 at 10:00 Lidocaine (Lidoderm) 1 patch DAILY TP ; Start 07/02/16 at 10:00; Stop 07/02/16 at 10:00; Status DC Magnesium Oxide (Magnesium Oxide) 400 mg DAILY PO Last administered on 10:12; Start 07/02/16 at 10:00 Nicotine (Nicoderm Cq 7mg) 1 patch DAILY TD Last administered on 07/02/16 10:17 ; Start 07/02/16 at 10:00 Simethicone (Gas-X) 80 mg QID PO Last administered on 07/02/16 10:15; Start 07/02/16 at 10:00 Tamsulosin HCl (Flomax) 0.4 mg HS PO ; Start 07/02/16 at 21:00 Bumetanide (Bumex) 2 mg DAILY PO Last administered on 07/02/16 10:09; Start 07/02/16 at 10:00 Gabapentin (Neurontin) 300 mg TID PO ; Start 07/02/16 at 14:00 Glimepiride (Amaryl) 4 mg DAILY PO ; Start 07/02/16 at 10:00 Multivitamins (Thera M Plus) 1 tab DAILY PO Last administered on 07/02/16 10:12 ; Start 07/02/16 at 10:00 Nystatin (Nystop) 1 gabrielle TID TP ; Start 07/02/16 at 14:00 Losartan Potassium (Cozaar) 50 mg DAILY PO Last administered on 07/02/16 10:12 ; Start 07/02/16 at 10:00 Lidocaine (Lidoderm) 2 patch DAILY TP Last administered on 07/02/16 10:17; Start 07/02/16 at 10:00 Methylprednisolone Acetate (DEPO-Medrol 40MG VIAL) 40 mg 1X ONCE IM Last administered on 07/02/16 10:07; Start 07/02/16 at 10:00; Stop 07/02/16 at 10:01; Status DC Bupivacaine HCl (Sensorcaine-Mpf 0.25%) 10 ml 1X ONCE IJ Last administered on 07/02/16 10:08; Start 07/02/16 at 10:00; Stop 07/02/16 at 10:01; Status DC Methylprednisolone Acetate (DEPO-Medrol 40MG VIAL) 40 mg 1X ONCE IM Last administered on 07/02/16 10:08; Start 07/02/16 at 10:00; Stop 07/02/16 at 10:01; Status DC Diclofenac Sodium (Voltaren) 1 gabrielle BID TP Last administered on 07/02/16 10:17; Start 07/02/16 at 11:00 Active Scripts Active Reported Valsartan 80 Mg Tablet 80 Mg PO DAILY Simethicone 80 Mg Tab.chew 80 Mg PO QID Prozac (Fluoxetine Hcl) 20 Mg Capsule 20 Mg PO DAILY Famotidine 20 Mg Tablet 20 Mg PO HS Nystatin 1 Each Powder.ea. 1 Each PO TID NICODERM CQ 7mg (Nicotine) 1 Each Patch.td24 1 Patch TD DAILY Multi Vitamin Daily (Multivitamin) 1 Each Tablet 1 Each PO DAILY Mag-Oxide (Magnesium Oxide) 400 Mg Tablet 1 Tab PO DAILY Hydrocodone-Apap 5-325 (Hydrocodone Bit/Acetaminophen) 1 Each Tablet 1 Tab PO PRN Q4HRS PRN Lidoderm (Lidocaine) 700 Mg Adh..patch 1 Patch TP DAILY Flomax (Tamsulosin Hcl) 0.4 Mg Cap.er.24h 0.4 Mg PO HS Ferrous Sulfate 325 Mg Tablet 325 Mg PO TID DURAGESIC 25mcg/hr (Fentanyl) 1 Each Patch.td72 1 Patch TP Q3DAYS Coreg (Carvedilol) 6.25 Mg Tablet 6.25 Mg PO BIDWMEALS Colace (Docusate Sodium) 100 Mg Capsule 100 Mg PO DAILY Bumetanide 2 Mg Tablet 1 Tab PO DAILY Dulcolax (Bisacodyl) 5 Mg Tablet.dr 5 Mg PO PRN DAILY PRN Glimepiride 4 Mg Tablet 4 Mg PO DAILY Gabapentin 300 Mg Capsule 300 Mg PO TID Acetaminophen 325 Mg Capsule 650 Mg PO Q6HRS PRN Duoneb 0.5-3(2.5) Mg/3 Ml (Albuterol/Ipratropium) 3 Ml Ampul.neb 3 Ml NEB QID Aspirin 81 Mg Tab.chew 81 Mg PO DAILY Allergies Allergies: Coded Allergies: sulfamethoxazole (Verified Allergy, Severe, Hives, 03/18/13) trimethoprim (Verified Allergy, Severe, Hives, 03/18/13) venom-honey bee (Verified Allergy, Severe, Anaphylaxis, 03/18/13) I S O L A T I O N *CONTACT* (Verified Allergy, Unknown, 04/15/16) mrsa ROS Review of System as reviewed in HPI otherwise -ve x 14 Physical Exam Physical Exam General Appearance: Awake Alert Oriented x 3 In no Distress Eyes: VIsion Unchanged Conjunctiva Normal EN: No EN Drainage Mucous Memb. moist Neck: no JVD no JVP Supple no Thyromegaly; thick neck CVS: S1 S2 no Murmur No Gallop No Rub tr Edema Resp: Rales no Rhonchi no Acc. Muscle use GI: BAS +ve NO Bruit Non Tender Non Distended; Obese abd : no CVA tenderness; no Suprapubic Tenderness SKIN: no Rashes Breast Exam deferred Mu.Sk: Adequate ROM no Muscle Atrophy Heme: Unable to palpate Obvious LAD no palp Splenomegaly NEURO: Good Strength and Tone Cranial Nerves II - XII grossly intact Psych: not Depressed no Active hallucination Vital Signs Vital Signs Date Time Temp Pulse Resp B/P Pulse Ox O2 Delivery O2 Flow Rate FiO2 07/02/16 11:52 18 Room Air 07/02/16 11:00 98.8 95 124/59 100 2.0 98.8 Assessment & Plan ESRD: Seen on HD shani OK so far; Vitals on HD: 147/66 90 afeb Dialysis as below F 180 NR 2.0 Hrs 3 K 2.5 Ca 140 Na 35HC03 Qb 350 + Qd 500+ Heparin 0 Units Uf to dry weight as tolerated May give 25-50 gms of 25% Albumin if needed to maintain Hemodynamic stability Treatment plan reviewed and discussed with television parts tester AMS - Suspect Medication related. Pt was noted to have some AMS and so HD was ordered but she is much more alert now and FSBS (which were noted to be low earlier) are now better too. Will cut HD treatment to 2hrs and run full 4 hrs nakia Hyponatremia - better today Anemia: restart Epogen; Transfuse with next HD as needed. HTN: Current BP meds reviewed. See orders for changes. Bone & Mineral: follow phos Discussed Plan of Care and prognosis etc. at length with family. Labs Labs Laboratory Tests Test 07/01/16 21:38 07/01/16 22:40 07/02/16 05:00 07/02/16 07:19 White Blood Count 6.1x10^3/uL (4.0-11.0) 5.7x10^3/uL (4.0-11.0) Red Blood Count 3.10x10^6/uL (3.50-5.40) 3.19x10^6/uL (3.50-5.40) Hemoglobin 9.1g/dL (12.0-15.5) 9.2g/dL (12.0-15.5) Hematocrit 27.2% (36.0-47.0) 28.0% (36.0-47.0) Mean Corpuscular Volume 88fL (79-100) 88fL (79-100) Mean Corpuscular Hemoglobin 29pg (25-35) 29pg (25-35) Mean Corpuscular Hemoglobin Concent 33g/dL (31-37) 33g/dL (31-37) Red Cell Distribution Width 18.2% (11.5-14.5) 18.2% (11.5-14.5) Platelet Count 183x10^3/uL (140-400) 178x10^3/uL (140-400) Neutrophils (%) (Auto) 72% (31-73) 68% (31-73) Lymphocytes (%) (Auto) 15% (24-48) 18% (24-48) Monocytes (%) (Auto) 9% (0-9) 10% (0-9) Eosinophils (%) (Auto) 4% (0-3) 3% (0-3) Basophils (%) (Auto) 1% (0-3) 1% (0-3) Neutrophils # (Auto) 4.4x10^3uL (1.8-7.7) 3.9x10^3uL (1.8-7.7) Lymphocytes # (Auto) 0.9x10^3/uL (1.0-4.8) 1.0x10^3/uL (1.0-4.8) Monocytes # (Auto) 0.5x10^3/uL (0.0-1.1) 0.5x10^3/uL (0.0-1.1) Eosinophils # (Auto) 0.2x10^3/uL (0.0-0.7) 0.2x10^3/uL (0.0-0.7) Basophils # (Auto) 0.0x10^3/uL (0.0-0.2) 0.0x10^3/uL (0.0-0.2) Prothrombin Time 15.1SEC (11.7-14.0) Prothromb Time International Ratio 1.3 (0.8-1.1) Activated Partial Thromboplast Time 38SEC (24-38) Urine Collection Type U cath Urine Color Yanira Urine Clarity Turbid Urine pH 5.0 Urine Specific Williamson 1.020 Urine Protein 100mg/dL (NEG-TRACE) Urine Glucose (UA) Negativemg/dL (NEG) Urine Ketones (Stick) Tracemg/dL (NEG) Urine Blood Large (NEG) Urine Nitrite Negative (NEG) Urine Bilirubin Moderate (NEG) Urine Urobilinogen Dipstick 1.0mg/dL (0.2 mg/dL) Urine Leukocyte Esterase Large (NEG) Urine RBC >40/HPF (0-2) Urine WBC Tntc/HPF (0-4) Urine Squamous Epithelial Cells Few/LPF Urine Renal Epithelial Cells Occ/LPF Urine Bacteria Many/HPF (0-FEW) Urine Mucus Marked/LPF Sodium Level 129mmol/L (136-145) 132mmol/L (136-145) Potassium Level 4.5mmol/L (3.5-5.1) 4.8mmol/L (3.5-5.1) Chloride Level 97mmol/L (98-107) 98mmol/L (98-107) Carbon Dioxide Level 26mmol/L (21-32) 27mmol/L (21-32) Anion Gap 6 (6-14) 7 (6-14) Blood Urea Nitrogen 17mg/dL (7-20) 19mg/dL (7-20) Creatinine 2.0mg/dL (0.6-1.0) 2.1mg/dL (0.6-1.0) Estimated GFR (Cockcroft-Gault) 26.0 24.5 BUN/Creatinine Ratio 9 (6-20) Glucose Level 118mg/dL (70-99) 59mg/dL (70-99) Calcium Level 8.5mg/dL (8.5-10.1) 8.5mg/dL (8.5-10.1) Magnesium Level 2.0mg/dL (1.8-2.4) Total Bilirubin 0.3mg/dL (0.2-1.0) Aspartate Amino Transf (AST/SGOT) 15U/L (15-37) Alanine Aminotransferase (ALT/SGPT) 15U/L (14-59) Alkaline Phosphatase 107U/L (46-116) Troponin I Quantitative 0.019ng/mL (0.000-0.055) KE-Azm-U-Type Natriuretic Peptide 5393pg/mL (0-124) Total Protein 7.6g/dL (6.4-8.2) Albumin 2.6g/dL (3.4-5.0) Albumin/Globulin Ratio 0.5 (1.0-1.7) Lipase 163U/L (73-393) Thyroid Stimulating Hormone (TSH) 2.835uIU/mL (0.358-3.74) Urine Opiates Screen Pos (NEG) Urine Methadone Screen Neg (NEG) Urine Barbiturates Neg (NEG) Urine Phencyclidine Screen Neg (NEG) Urine Amphetamine/Methamphetamine Neg (NEG) Urine Benzodiazepines Screen Neg (NEG) Urine Cocaine Screen Neg (NEG) Urine Cannabinoids Screen Neg (NEG) Urine Ethyl Alcohol Neg (NEG) O2 Saturation 94% (92-99) Arterial Blood pH 7.32 (7.35-7.45) Arterial Blood pCO2 at Patient Temp 46mmHg (35-46) Arterial Blood pO2 at Patient Temp 80mmHg (75-108) Arterial Blood HCO3 23mmol/L (21-28) Arterial Blood Base Excess -3mmol/L (-3-3) FiO2 28 Glucose (Fingerstick) 56mg/dL (70-99) Test 07/02/16 07:45 07/02/16 11:50 Glucose (Fingerstick) 96mg/dL (70-99) 91mg/dL (70-99) Laboratory Tests Test 07/01/16 21:38 07/01/16 22:40 07/02/16 05:00 07/02/16 07:19 White Blood Count 6.1x10^3/uL (4.0-11.0) 5.7x10^3/uL (4.0-11.0) Red Blood Count 3.10x10^6/uL (3.50-5.40) 3.19x10^6/uL (3.50-5.40) Hemoglobin 9.1g/dL (12.0-15.5) 9.2g/dL (12.0-15.5) Hematocrit 27.2% (36.0-47.0) 28.0% (36.0-47.0) Mean Corpuscular Volume 88fL (79-100) 88fL (79-100) Mean Corpuscular Hemoglobin 29pg (25-35) 29pg (25-35) Mean Corpuscular Hemoglobin Concent 33g/dL (31-37) 33g/dL (31-37) Red Cell Distribution Width 18.2% (11.5-14.5) 18.2% (11.5-14.5) Platelet Count 183x10^3/uL (140-400) 178x10^3/uL (140-400) Neutrophils (%) (Auto) 72% (31-73) 68% (31-73) Lymphocytes (%) (Auto) 15% (24-48) 18% (24-48) Monocytes (%) (Auto) 9% (0-9) 10% (0-9) Eosinophils (%) (Auto) 4% (0-3) 3% (0-3) Basophils (%) (Auto) 1% (0-3) 1% (0-3) Neutrophils # (Auto) 4.4x10^3uL (1.8-7.7) 3.9x10^3uL (1.8-7.7) Lymphocytes # (Auto) 0.9x10^3/uL (1.0-4.8) 1.0x10^3/uL (1.0-4.8) Monocytes # (Auto) 0.5x10^3/uL (0.0-1.1) 0.5x10^3/uL (0.0-1.1) Eosinophils # (Auto) 0.2x10^3/uL (0.0-0.7) 0.2x10^3/uL (0.0-0.7) Basophils # (Auto) 0.0x10^3/uL (0.0-0.2) 0.0x10^3/uL (0.0-0.2) Prothrombin Time 15.1SEC (11.7-14.0) Prothromb Time International Ratio 1.3 (0.8-1.1) Activated Partial Thromboplast Time 38SEC (24-38) Urine Collection Type U cath Urine Color Yanira Urine Clarity Turbid Urine pH 5.0 Urine Specific Williamson 1.020 Urine Protein 100mg/dL (NEG-TRACE) Urine Glucose (UA) Negativemg/dL (NEG) Urine Ketones (Stick) Tracemg/dL (NEG) Urine Blood Large (NEG) Urine Nitrite Negative (NEG) Urine Bilirubin Moderate (NEG) Urine Urobilinogen Dipstick 1.0mg/dL (0.2 mg/dL) Urine Leukocyte Esterase Large (NEG) Urine RBC >40/HPF (0-2) Urine WBC Tntc/HPF (0-4) Urine Squamous Epithelial Cells Few/LPF Urine Renal Epithelial Cells Occ/LPF Urine Bacteria Many/HPF (0-FEW) Urine Mucus Marked/LPF Sodium Level 129mmol/L (136-145) 132mmol/L (136-145) Potassium Level 4.5mmol/L (3.5-5.1) 4.8mmol/L (3.5-5.1) Chloride Level 97mmol/L (98-107) 98mmol/L (98-107) Carbon Dioxide Level 26mmol/L (21-32) 27mmol/L (21-32) Anion Gap 6 (6-14) 7 (6-14) Blood Urea Nitrogen 17mg/dL (7-20) 19mg/dL (7-20) Creatinine 2.0mg/dL (0.6-1.0) 2.1mg/dL (0.6-1.0) Estimated GFR (Cockcroft-Gault) 26.0 24.5 BUN/Creatinine Ratio 9 (6-20) Glucose Level 118mg/dL (70-99) 59mg/dL (70-99) Calcium Level 8.5mg/dL (8.5-10.1) 8.5mg/dL (8.5-10.1) Magnesium Level 2.0mg/dL (1.8-2.4) Total Bilirubin 0.3mg/dL (0.2-1.0) Aspartate Amino Transf (AST/SGOT) 15U/L (15-37) Alanine Aminotransferase (ALT/SGPT) 15U/L (14-59) Alkaline Phosphatase 107U/L (46-116) Troponin I Quantitative 0.019ng/mL (0.000-0.055) QU-Dhf-U-Type Natriuretic Peptide 5393pg/mL (0-124) Total Protein 7.6g/dL (6.4-8.2) Albumin 2.6g/dL (3.4-5.0) Albumin/Globulin Ratio 0.5 (1.0-1.7) Lipase 163U/L (73-393) Thyroid Stimulating Hormone (TSH) 2.835uIU/mL (0.358-3.74) Urine Opiates Screen Pos (NEG) Urine Methadone Screen Neg (NEG) Urine Barbiturates Neg (NEG) Urine Phencyclidine Screen Neg (NEG) Urine Amphetamine/Methamphetamine Neg (NEG) Urine Benzodiazepines Screen Neg (NEG) Urine Cocaine Screen Neg (NEG) Urine Cannabinoids Screen Neg (NEG) Urine Ethyl Alcohol Neg (NEG) O2 Saturation 94% (92-99) Arterial Blood pH 7.32 (7.35-7.45) Arterial Blood pCO2 at Patient Temp 46mmHg (35-46) Arterial Blood pO2 at Patient Temp 80mmHg (75-108) Arterial Blood HCO3 23mmol/L (21-28) Arterial Blood Base Excess -3mmol/L (-3-3) FiO2 28 Glucose (Fingerstick) 56mg/dL (70-99) Test 07/02/16 07:45 07/02/16 11:50 Glucose (Fingerstick) 96mg/dL (70-99) 91mg/dL (70-99) GANGA TANG MD July 02, 2016 13:26
[2016-07-02] MEDS ORDERED: DIALYSIS PATIENT. MC PRN ×2 (15:00)
[2016-07-02] MEDS ORDERED: IV NORMAL SALINE 1000ML BAG 1,000 ML IV PRN ×2 (15:00)
[2016-07-02] MEDS ORDERED: 0.9 % SODIUM CHLORIDE 10 ML DISP.SYRIN. IV PRN ×2 (15:00)
[2016-07-02] MEDS: NYSTATIN TOPICAL POWDER 15GM BOTTLE. TP SCH ×2 (16:00→21:00)
[2016-07-02] MEDS: GABAPENTIN 300 MG CAPSULE. PO SCH ×2 (16:34→21:07)
[2016-07-02] MEDS ORDERED: TAMSULOSIN 0.4 MG CAP.ER.24H. PO SCH (21:00)
[2016-07-02] MEDS ORDERED: FAMOTIDINE 20 MG TABLET. PO SCH (21:00)
--- NOTE | 2016-07-02 23:42 | CONS ---
DATE OF CONSULTATION: 07/02/2016 She is in room 202. HISTORY OF PRESENT ILLNESS: This is a 55-year-old right-handed female patient with known diabetes mellitus, hypertension, has been in and out of hospitals and fdc care unit, long-term acute care unit since April of this year. Since that time, she has been on hemodialysis for treatment of end-stage renal disease. The patient right now is at [facility] and she was admitted to the Emergency Room earlier this morning with altered mental status and twitching right shoulder with associated pain, which she apparently had it for about a week. She denies any specific injury, but she has been participating in physical therapy and occupational therapy and start sitting and standing. She has been getting dialysis Tuesdays, , and Saturdays. The patient was noted with being more confused since returning from dialysis yesterday afternoon as per correction staff and urine had abnormal color. The patient was admitted with a tentative diagnosis of altered mental status and urinary tract infection. The patient had a CT scan of the brain, which was within normal limits. Right shoulder x-rays was normal. Chest x-ray revealed cardiomegaly. The patient admits chronic lower back pain and also knee joint pain prior to her hospitalization in April. She lives alone in [facility], had stairs to manage. The patient admits that she has some infection in her right area and had some nerve damage from it. PHYSICAL EXAMINATION: Today revealed a middle-aged female. She is obese. She is alert, oriented to time, place, person and circumstance and follows commands appropriately. No obvious facial asymmetry, visual field cut, difficulty with swallowing or communication was noted. No obvious cognitive deficits noted. She moves all 4 extremities voluntarily where she had 4/5 grade muscle strength with relatively increased weakness in dorsiflexor muscles of both feet where she had only 2/5 grade muscle strength. Deep tendon reflexes are decreased to absent overall, she had decreased sensory perception for both thighs when compared to her feet. She had tenderness to palpation over anterior aspect of right shoulder and over sacroiliac joint area bilaterally. Straight leg raising test is negative bilaterally. She had some laxity of knee joint collateral ligaments and crepitus on range of motion of both knee joints. She had pain free range of motion on both hip joints. She also had relatively increased weakness of left triceps where she had only 2+/5 grade muscle strength. She is independent in rolling from side to side. I have not tested her transfer or ambulation skills at this time. She had negative Tinel sign over peroneal nerve at fibular neck area bilaterally. ASSESSMENT: A middle-aged female with diabetes mellitus with peripheral neuropathy, end-stage renal disease on hemodialysis; hypertension, obesity, bilateral foot drop, degenerative joint disease of both knees, sprain and tendinitis, right shoulder, urinary tract infection, chronic lower back pain, most probably from degenerative disk disease of lumbar vertebrae without any clinical evidence of ongoing lumbar radiculopathy. RECOMMENDATION: If she agrees to inject her right shoulder and right knee to help ease her pain, to ask physical therapy and occupational therapy to see her. She might need bilateral ankle foot braces to support her feet while she is up to help with her foot drop. . , I appreciate asking me to participate in the care of this interesting patient. I will be glad to follow her with you as needed for her rehabilitation. ALEXANDRO MEADE MD DR: TARAN/jenna JOB#: [id number] / [id number]
[2016-07-03 02:19] VITALS: BP 136/71
[2016-07-03 07:48] LABS: ALBUMIN 2.6 g/dL (3.4-5.0); ALBUMIN/GLOBULIN RATIO 0.5 (1.0-1.7); CALCIUM 8.7 mg/dL (8.5-10.1); CREATININE 1.9 mg/dL (0.6-1.0); GFR 27.5; POTASSIUM 4.4 mmol/L (3.5-5.1); TOTAL BILIRUBIN 0.3 mg/dL (0.2-1.0); TOTAL PROTEIN 7.7 g/dL (6.4-8.2)
[2016-07-03 07:53] VITALS: BP 134/64
[2016-07-03 07:59] LABS: HEMATOCRIT 30.5 % (36.0-47.0); HEMOGLOBIN 9.7 g/dL (12.0-15.5); RED BLOOD COUNT 3.39 x10^6/uL (3.50-5.40); WHITE BLOOD COUNT 5.7 x10^3/uL (4.0-11.0)
[2016-07-03 08:00] LABS: BASO % 1 % (0-3); EOS % 2 % (0-3); LYMPH # 0.9 x10^3/uL (1.0-4.8); LYMPH % 16 % (24-48); MEAN CORPUSCULAR HEMOGLOBIN 29 pg (25-35); MEAN CORPUSCULAR HGB CONC 32 g/dL (31-37); MEAN CORPUSCULAR VOLUME 90 fL (79-100); MONO % 7 % (0-9); NEUT % 74 % (31-73); PLATELET COUNT 168 x10^3/uL (140-400); RED CELL DISTRIBUTION WIDTH 18.2 % (11.5-14.5)
[2016-07-03] MEDS: FERROUS SULFATE 325 MG TABLET. PO SCH ×2 (08:00→13:17)
[2016-07-03] MEDS: SIMETHICONE 80 MG TAB.CHEW PO SCH ×2 (08:51→13:17)
[2016-07-03] MEDS: GABAPENTIN 300 MG CAPSULE. PO SCH ×2 (08:51→13:17)
[2016-07-03] MEDS: NYSTATIN TOPICAL POWDER 15GM BOTTLE. TP SCH ×3 (09:00→14:00)
[2016-07-03] MEDS ORDERED: IV NORMAL SALINE 1000ML BAG 1,000 ML IV PRN ×2 (09:08)
[2016-07-03] MEDS ORDERED: DIALYSIS PATIENT. MC PRN ×2 (09:15)
[2016-07-03] MEDS ORDERED: 0.9 % SODIUM CHLORIDE 10 ML DISP.SYRIN. IV PRN ×2 (09:15)
[2016-07-03] MEDS: HYDROcodone/APAP 5/325MG 1 TAB TABLET PO PRN (09:22)
--- NOTE | 2016-07-03 10:02 | PDOC ---
PROGRESS NOTES Subjective Subjective No new complaints and right shoulder pain is less and right knee feels better. Objective Objective Vital Signs Date Time Temp Pulse Resp B/P (MAP) Pulse Ox O2 Delivery O2 Flow Rate FiO2 07/03/16 09:22 18 Nasal Cannula 2.0 07/03/16 07:53 97.4 79 134/64 (87) 100 97.4 Intake and Output 07/03/16 07:00 Intake Total 870 ml Output Total 200 ml Balance 670 ml Intake Oral 870 ml Output Urine Total 200 ml Physical Exam Physical Exam She is alert,comfortable supine in bed and continues with pain on active ROM of right shoulder and tenderness to palpation over anterior aspect of right shoulder and she is protecting her right shoulder. Assessment Assessment Problems Medical Problems: (1) Encephalopathy Status: Acute (2) Renal failure Status: Acute (3) Sinusitis Status: Acute (4) UTI (urinary tract infection) Status: Acute Plan Plan of Care To continue present physical and occupational therapy follow up and to SNF when medically stable.Shoulder sprain and tendinitis takes time to get better. Comment Review of Relevant I have reviewed the following items nelda (where applicable) has been applied. Labs Laboratory Tests Test 07/01/16 21:38 07/01/16 22:40 07/02/16 05:00 07/02/16 07:19 White Blood Count 6.1 x10^3/uL (4.0-11.0) 5.7 x10^3/uL (4.0-11.0) Red Blood Count 3.10 x10^6/uL (3.50-5.40) 3.19 x10^6/uL (3.50-5.40) Hemoglobin 9.1 g/dL (12.0-15.5) 9.2 g/dL (12.0-15.5) Hematocrit 27.2 % (36.0-47.0) 28.0 % (36.0-47.0) Mean Corpuscular Volume 88 fL (79-100) 88 fL (79-100) Mean Corpuscular Hemoglobin 29 pg (25-35) 29 pg (25-35) Mean Corpuscular Hemoglobin Concent 33 g/dL (31-37) 33 g/dL (31-37) Red Cell Distribution Width 18.2 % (11.5-14.5) 18.2 % (11.5-14.5) Platelet Count 183 x10^3/uL (140-400) 178 x10^3/uL (140-400) Neutrophils (%) (Auto) 72 % (31-73) 68 % (31-73) Lymphocytes (%) (Auto) 15 % (24-48) 18 % (24-48) Monocytes (%) (Auto) 9 % (0-9) 10 % (0-9) Eosinophils (%) (Auto) 4 % (0-3) 3 % (0-3) Basophils (%) (Auto) 1 % (0-3) 1 % (0-3) Neutrophils # (Auto) 4.4 x10^3uL (1.8-7.7) 3.9 x10^3uL (1.8-7.7) Lymphocytes # (Auto) 0.9 x10^3/uL (1.0-4.8) 1.0 x10^3/uL (1.0-4.8) Monocytes # (Auto) 0.5 x10^3/uL (0.0-1.1) 0.5 x10^3/uL (0.0-1.1) Eosinophils # (Auto) 0.2 x10^3/uL (0.0-0.7) 0.2 x10^3/uL (0.0-0.7) Basophils # (Auto) 0.0 x10^3/uL (0.0-0.2) 0.0 x10^3/uL (0.0-0.2) Prothrombin Time 15.1 SEC (11.7-14.0) Prothromb Time International Ratio 1.3 (0.8-1.1) Activated Partial Thromboplast Time 38 SEC (24-38) Urine Collection Type U cath Urine Color Yanira Urine Clarity Turbid Urine pH 5.0 Urine Specific [place] 1.020 Urine Protein 100 mg/dL (NEG-TRACE) Urine Glucose (UA) Negative mg/dL (NEG) Urine Ketones (Stick) Trace mg/dL (NEG) Urine Blood Large (NEG) Urine Nitrite Negative (NEG) Urine Bilirubin Moderate (NEG) Urine Urobilinogen Dipstick 1.0 mg/dL (0.2 mg/dL) Urine Leukocyte Esterase Large (NEG) Urine RBC >40 /HPF (0-2) Urine WBC Tntc /HPF (0-4) Urine Squamous Epithelial Cells Few /LPF Urine Renal Epithelial Cells Occ /LPF Urine Bacteria Many /HPF (0-FEW) Urine Mucus Marked /LPF Sodium Level 129 mmol/L (136-145) 132 mmol/L (136-145) Potassium Level 4.5 mmol/L (3.5-5.1) 4.8 mmol/L (3.5-5.1) Chloride Level 97 mmol/L (98-107) 98 mmol/L (98-107) Carbon Dioxide Level 26 mmol/L (21-32) 27 mmol/L (21-32) Anion Gap 6 (6-14) 7 (6-14) Blood Urea Nitrogen 17 mg/dL (7-20) 19 mg/dL (7-20) Creatinine 2.0 mg/dL (0.6-1.0) 2.1 mg/dL (0.6-1.0) Estimated GFR (Cockcroft-Gault) 26.0 24.5 BUN/Creatinine Ratio 9 (6-20) Glucose Level 118 mg/dL (70-99) 59 mg/dL (70-99) Calcium Level 8.5 mg/dL (8.5-10.1) 8.5 mg/dL (8.5-10.1) Magnesium Level 2.0 mg/dL (1.8-2.4) Total Bilirubin 0.3 mg/dL (0.2-1.0) Aspartate Amino Transf (AST/SGOT) 15 U/L (15-37) Alanine Aminotransferase (ALT/SGPT) 15 U/L (14-59) Alkaline Phosphatase 107 U/L (46-116) Troponin I Quantitative 0.019 ng/mL (0.000-0.055) TM-Bku-U-Type Natriuretic Peptide 5393 pg/mL (0-124) Total Protein 7.6 g/dL (6.4-8.2) Albumin 2.6 g/dL (3.4-5.0) Albumin/Globulin Ratio 0.5 (1.0-1.7) Lipase 163 U/L (73-393) Thyroid Stimulating Hormone (TSH) 2.835 uIU/mL (0.358-3.74) Urine Opiates Screen Pos (NEG) Urine Methadone Screen Neg (NEG) Urine Barbiturates Neg (NEG) Urine Phencyclidine Screen Neg (NEG) Urine Amphetamine/Methamphetamine Neg (NEG) Urine Benzodiazepines Screen Neg (NEG) Urine Cocaine Screen Neg (NEG) Urine Cannabinoids Screen Neg (NEG) Urine Ethyl Alcohol Neg (NEG) O2 Saturation 94 % (92-99) Arterial Blood pH 7.32 (7.35-7.45) Arterial Blood pCO2 at Patient Temp 46 mmHg (35-46) Arterial Blood pO2 at Patient Temp 80 mmHg (75-108) Arterial Blood HCO3 23 mmol/L (21-28) Arterial Blood Base Excess -3 mmol/L (-3-3) FiO2 28 Glucose (Fingerstick) 56 mg/dL (70-99) Test 07/02/16 07:45 07/02/16 11:50 07/02/16 17:09 07/02/16 20:38 Glucose (Fingerstick) 96 mg/dL (70-99) 91 mg/dL (70-99) 195 mg/dL (70-99) 315 mg/dL (70-99) Test 07/03/16 03:20 07/03/16 07:27 White Blood Count 5.7 x10^3/uL (4.0-11.0) Red Blood Count 3.39 x10^6/uL (3.50-5.40) Hemoglobin 9.7 g/dL (12.0-15.5) Hematocrit 30.5 % (36.0-47.0) Mean Corpuscular Volume 90 fL (79-100) Mean Corpuscular Hemoglobin 29 pg (25-35) Mean Corpuscular Hemoglobin Concent 32 g/dL (31-37) Red Cell Distribution Width 18.2 % (11.5-14.5) Platelet Count 168 x10^3/uL (140-400) Neutrophils (%) (Auto) 74 % (31-73) Lymphocytes (%) (Auto) 16 % (24-48) Monocytes (%) (Auto) 7 % (0-9) Eosinophils (%) (Auto) 2 % (0-3) Basophils (%) (Auto) 1 % (0-3) Neutrophils # (Auto) 4.2 x10^3uL (1.8-7.7) Lymphocytes # (Auto) 0.9 x10^3/uL (1.0-4.8) Monocytes # (Auto) 0.4 x10^3/uL (0.0-1.1) Eosinophils # (Auto) 0.1 x10^3/uL (0.0-0.7) Basophils # (Auto) 0.0 x10^3/uL (0.0-0.2) Sodium Level 133 mmol/L (136-145) Potassium Level 4.4 mmol/L (3.5-5.1) Chloride Level 96 mmol/L (98-107) Carbon Dioxide Level 30 mmol/L (21-32) Anion Gap 7 (6-14) Blood Urea Nitrogen 22 mg/dL (7-20) Creatinine 1.9 mg/dL (0.6-1.0) Estimated GFR (Cockcroft-Gault) 27.5 BUN/Creatinine Ratio 12 (6-20) Glucose Level 242 mg/dL (70-99) Calcium Level 8.7 mg/dL (8.5-10.1) Total Bilirubin 0.3 mg/dL (0.2-1.0) Aspartate Amino Transf (AST/SGOT) 14 U/L (15-37) Alanine Aminotransferase (ALT/SGPT) 16 U/L (14-59) Alkaline Phosphatase 107 U/L (46-116) Total Protein 7.7 g/dL (6.4-8.2) Albumin 2.6 g/dL (3.4-5.0) Albumin/Globulin Ratio 0.5 (1.0-1.7) Glucose (Fingerstick) 197 mg/dL (70-99) Laboratory Tests Test 07/02/16 11:50 07/02/16 17:09 07/02/16 20:38 07/03/16 03:20 Glucose (Fingerstick) 91 mg/dL (70-99) 195 mg/dL (70-99) 315 mg/dL (70-99) White Blood Count 5.7 x10^3/uL (4.0-11.0) Red Blood Count 3.39 x10^6/uL (3.50-5.40) Hemoglobin 9.7 g/dL (12.0-15.5) Hematocrit 30.5 % (36.0-47.0) Mean Corpuscular Volume 90 fL (79-100) Mean Corpuscular Hemoglobin 29 pg (25-35) Mean Corpuscular Hemoglobin Concent 32 g/dL (31-37) Red Cell Distribution Width 18.2 % (11.5-14.5) Platelet Count 168 x10^3/uL (140-400) Neutrophils (%) (Auto) 74 % (31-73) Lymphocytes (%) (Auto) 16 % (24-48) Monocytes (%) (Auto) 7 % (0-9) Eosinophils (%) (Auto) 2 % (0-3) Basophils (%) (Auto) 1 % (0-3) Neutrophils # (Auto) 4.2 x10^3uL (1.8-7.7) Lymphocytes # (Auto) 0.9 x10^3/uL (1.0-4.8) Monocytes # (Auto) 0.4 x10^3/uL (0.0-1.1) Eosinophils # (Auto) 0.1 x10^3/uL (0.0-0.7) Basophils # (Auto) 0.0 x10^3/uL (0.0-0.2) Sodium Level 133 mmol/L (136-145) Potassium Level 4.4 mmol/L (3.5-5.1) Chloride Level 96 mmol/L (98-107) Carbon Dioxide Level 30 mmol/L (21-32) Anion Gap 7 (6-14) Blood Urea Nitrogen 22 mg/dL (7-20) Creatinine 1.9 mg/dL (0.6-1.0) Estimated GFR (Cockcroft-Gault) 27.5 BUN/Creatinine Ratio 12 (6-20) Glucose Level 242 mg/dL (70-99) Calcium Level 8.7 mg/dL (8.5-10.1) Total Bilirubin 0.3 mg/dL (0.2-1.0) Aspartate Amino Transf (AST/SGOT) 14 U/L (15-37) Alanine Aminotransferase (ALT/SGPT) 16 U/L (14-59) Alkaline Phosphatase 107 U/L (46-116) Total Protein 7.7 g/dL (6.4-8.2) Albumin 2.6 g/dL (3.4-5.0) Albumin/Globulin Ratio 0.5 (1.0-1.7) Test 07/03/16 07:27 Glucose (Fingerstick) 197 mg/dL (70-99) Microbiology 07/01/16 Urine Culture - Preliminary, Resulted 07/01/16 Urine Culture Result 1 (RICHARD) - Preliminary, Resulted Medications Current Medications Ceftriaxone Sodium 1 gm/ Sodium Chloride 50 ml @ 100 mls/hr Q24H IV Last administered on 07/02/16 22:00; Start 07/02/16 at 22:00 Ceftriaxone Sodium 50 ml @ 100 mls/hr 1X ONCE IV Last administered on 22:34; Start 07/01/16 at 22:30; Stop 07/01/16 at 22:59; Status DC Ondansetron HCl (Zofran) 4 mg PRN Q8HRS PRN IV NAUSEA/VOMITING; Start 07/01/16 at 23:15; Stop 07/02/16 at 23:14; Status DC Dextrose (Dextrose 50%-Water Syringe) 25 gm STK-MED ONCE IV ; Start 07/02/16 at 07:21; Stop 07/02/16 at 07:22; Status DC Dextrose (Dextrose 50%-Water Syringe) 12.5 gm PRN Q15MIN PRN IV SEE COMMENTS Last administered on 07/02/16 07:25; Start 07/02/16 at 07:30 Albuterol Sulfate (Ventolin Neb Soln) 2.5 mg PRN QID PRN NEB SHORTNESS OF BREATH; Start 07/02/16 at 09:15 Tramadol HCl (Ultram) 50 mg PRN Q6HRS PRN PO MILD PAIN; Start 07/02/16 at 09:00 Acetaminophen (Tylenol) 650 mg PRN Q6HRS PRN PO pain; Start 07/02/16 at 09:00 Aspirin (Children'S Aspirin) 81 mg DAILY PO Last administered on 07/02/16 10:12 ; Start 07/02/16 at 10:00 Bisacodyl (Dulcolax Tab) 5 mg PRN DAILY PRN PO CONSTIPATION; Start 07/02/16 at 09:30 Carvedilol (Coreg) 6.25 mg BIDWMEALS PO Last administered on 07/02/16 16:37; Start 07/02/16 at 10:00 Docusate Sodium (Colace) 100 mg DAILY PO Last administered on 07/02/16 10:10; Start 07/02/16 at 10:00 Famotidine (Pepcid) 20 mg HS PO Last administered on 07/02/16 21:08; Start 07/02 at 21:00 Fentanyl (Duragesic 25mcg/ Hr Patch) 1 patch Q3DAYS TD ; Start 07/02/16 at 10:00 Ferrous Sulfate (Feosol) 325 mg TIDWMEALS PO Last administered on 07/02/16 16: 37; Start 07/02/16 at 12:00 Fluoxetine HCl (Prozac) 20 mg DAILY PO Last administered on 07/02/16 10:12; Start 07/02/16 at 10:00 Acetaminophen/ Hydrocodone Bitart (Lortab 5/325) 1 tab PRN Q4HRS PRN PO MODERATE-SEVERE PAIN Last administered on 07/03/16 09:22; Start 07/02/16 at 09:30 Albuterol/ Ipratropium (Duoneb) 3 ml RTQID NEB ; Start 07/02/16 at 10:00 Lidocaine (Lidoderm) 1 patch DAILY TP ; Start 07/02/16 at 10:00; Stop 07/02/16 at 10:00; Status DC Magnesium Oxide (Magnesium Oxide) 400 mg DAILY PO Last administered on 10:12; Start 07/02/16 at 10:00 Nicotine (Nicoderm Cq 7mg) 1 patch DAILY TD Last administered on 07/02/16 10:17 ; Start 07/02/16 at 10:00 Simethicone (Gas-X) 80 mg QID PO Last administered on 07/02/16 21:07; Start 07/02/16 at 10:00 Tamsulosin HCl (Flomax) 0.4 mg HS PO Last administered on 07/02/16 21:08; Start 07/02/16 at 21:00 Bumetanide (Bumex) 2 mg DAILY PO Last administered on 07/02/16 10:09; Start 07/02/16 at 10:00 Gabapentin (Neurontin) 300 mg TID PO Last administered on 07/02/16 21:07; Start 07/02/16 at 14:00 Glimepiride (Amaryl) 4 mg DAILY PO ; Start 07/02/16 at 10:00 Multivitamins (Thera M Plus) 1 tab DAILY PO Last administered on 07/02/16 10:12 ; Start 07/02/16 at 10:00 Nystatin (Nystop) 1 gabrielle TID TP Last administered on 07/02/16 16:00; Start at 14:00 Losartan Potassium (Cozaar) 50 mg DAILY PO Last administered on 07/02/16 10:12 ; Start 07/02/16 at 10:00 Lidocaine (Lidoderm) 2 patch DAILY TP Last administered on 07/02/16 10:17; Start 07/02/16 at 10:00 Methylprednisolone Acetate (DEPO-Medrol 40MG VIAL) 40 mg 1X ONCE IM Last administered on 07/02/16 10:07; Start 07/02/16 at 10:00; Stop 07/02/16 at 10:01; Status DC Bupivacaine HCl (Sensorcaine-Mpf 0.25%) 10 ml 1X ONCE IJ Last administered on 07/02/16 10:08; Start 07/02/16 at 10:00; Stop 07/02/16 at 10:01; Status DC Methylprednisolone Acetate (DEPO-Medrol 40MG VIAL) 40 mg 1X ONCE IM Last administered on 07/02/16 10:08; Start 07/02/16 at 10:00; Stop 07/02/16 at 10:01; Status DC Diclofenac Sodium (Voltaren) 1 gabrielle BID TP Last administered on 07/02/16 21:09; Start 07/02/16 at 11:00 Sodium Chloride 1,000 ml @ 1,000 mls/hr Q1H PRN IV hypotension; Start 07/02/16 at 15:00; Stop 07/02/16 at 20:59; Status DC Sodium Chloride (Normal Saline Flush) 10 ml 1X PRN PRN IV AP catheter pack; Start 07/02/16 at 15:00; Stop 07/03/16 at 14:59 Sodium Chloride (Normal Saline Flush) 10 ml 1X PRN PRN IV AMBULANCE DRIVER catheter pack; Start 07/02/16 at 15:00; Stop 07/03/16 at 14:59 Sodium Chloride 1,000 ml @ 400 mls/hr Q2H30M PRN IV PATENCY; Start 07/02/16 at 15:00; Stop 07/03/16 at 02:59; Status DC Info (PHARMACY MONITORING -- do not chart) 1 each PRN DAILY PRN MC SEE COMMENTS ; Start 07/02/16 at 15:00; Stop 07/03/16 at 09:24; Status DC Info (PHARMACY MONITORING -- do not chart) 1 each PRN DAILY PRN MC SEE COMMENTS ; Start 07/02/16 at 15:00; Stop 07/03/16 at 09:24; Status DC Sodium Chloride 1,000 ml @ 1,000 mls/hr Q1H PRN IV hypotension; Start 07/03/16 at 09:08; Stop 07/03/16 at 15:07 Sodium Chloride (Normal Saline Flush) 10 ml 1X PRN PRN IV AP catheter pack; Start 07/03/16 at 09:15; Stop 07/04/16 at 09:14 Sodium Chloride (Normal Saline Flush) 10 ml 1X PRN PRN IV AMBULANCE DRIVER catheter pack; Start 07/03/16 at 09:15; Stop 07/04/16 at 09:14 Sodium Chloride 1,000 ml @ 400 mls/hr Q2H30M PRN IV PATENCY; Start 07/03/16 at 09:08; Stop 07/03/16 at 21:07 Info (PHARMACY MONITORING -- do not chart) 1 each PRN DAILY PRN MC SEE COMMENTS ; Start 07/03/16 at 09:15 Info (PHARMACY MONITORING -- do not chart) 1 each PRN DAILY PRN MC SEE COMMENTS ; Start 07/03/16 at 09:15; Stop 07/03/16 at 09:25; Status DC Active Scripts Active Reported Valsartan 80 Mg Tablet 80 Mg PO DAILY Simethicone 80 Mg Tab.chew 80 Mg PO QID Prozac (Fluoxetine Hcl) 20 Mg Capsule 20 Mg PO DAILY Famotidine 20 Mg Tablet 20 Mg PO HS Nystatin 1 Each Powder.ea. 1 Each PO TID NICODERM CQ 7mg (Nicotine) 1 Each Patch.td24 1 Patch TD DAILY Multi Vitamin Daily (Multivitamin) 1 Each Tablet 1 Each PO DAILY Mag-Oxide (Magnesium Oxide) 400 Mg Tablet 1 Tab PO DAILY Hydrocodone-Apap 5-325 (Hydrocodone Bit/Acetaminophen) 1 Each Tablet 1 Tab PO PRN Q4HRS PRN Lidoderm (Lidocaine) 700 Mg Adh..patch 1 Patch TP DAILY Flomax (Tamsulosin Hcl) 0.4 Mg Cap.er.24h 0.4 Mg PO HS Ferrous Sulfate 325 Mg Tablet 325 Mg PO TID DURAGESIC 25mcg/hr (Fentanyl) 1 Each Patch.td72 1 Patch TP Q3DAYS Coreg (Carvedilol) 6.25 Mg Tablet 6.25 Mg PO BIDWMEALS Colace (Docusate Sodium) 100 Mg Capsule 100 Mg PO DAILY Bumetanide 2 Mg Tablet 1 Tab PO DAILY Dulcolax (Bisacodyl) 5 Mg Tablet.dr 5 Mg PO PRN DAILY PRN Glimepiride 4 Mg Tablet 4 Mg PO DAILY Gabapentin 300 Mg Capsule 300 Mg PO TID Acetaminophen 325 Mg Capsule 650 Mg PO Q6HRS PRN Duoneb 0.5-3(2.5) Mg/3 Ml (Albuterol/Ipratropium) 3 Ml Ampul.neb 3 Ml NEB QID Aspirin 81 Mg Tab.chew 81 Mg PO DAILY Vitals/I & O Vital Sign - Last 24 Hours 07/02/16 07/02/16 07/02/16 07/02/16 10:11 10:12 10:52 11:00 Temp 98.8 98.8 Pulse 95 94 95 Resp 18 B/P (MAP) 124/59 124/59 124/59 (80) Pulse Ox 100 O2 Delivery Room Air Nasal Cannula O2 Flow Rate 2.0 07/02/16 07/02/16 07/02/16 07/02/16 11:52 16:37 16:45 19:48 Temp 98.4 98.7 98.4 98.7 Pulse 93 93 94 Resp 18 16 B/P (MAP) 134/53 134/53 (80) 132/61 (84) Pulse Ox 95 97 O2 Delivery Room Air Nasal Cannula Nasal Cannula O2 Flow Rate 2.0 2.0 07/02/16 07/02/16 07/02/16 07/03/16 19:54 20:14 22:32 02:19 Temp 98.4 98.2 98.4 98.2 Pulse 88 78 Resp 16 B/P (MAP) 140/73 (95) 136/71 (92) Pulse Ox 99 97 96 O2 Delivery Nasal Cannula Nasal Cannula Nasal Cannula O2 Flow Rate 2.0 2.0 2.0 2.0 07/03/16 07/03/16 07/03/16 07:53 08:00 09:22 Temp 97.4 97.4 Pulse 79 Resp 23 18 B/P (MAP) 134/64 (87) Pulse Ox 100 O2 Delivery Nasal Cannula Nasal Cannula Nasal Cannula O2 Flow Rate 2.0 2.0 Intake and Output 07/02/16 07/02/16 07/03/16 15:00 23:00 07:00 Intake Total 750 ml 120 ml Output Total 200 ml Balance 550 ml 120 ml ALEXANDRO MEADE MD July 03, 2016 10:02
--- NOTE | 2016-07-03 10:21 | PDOC ---
Dialysis Progress Note Dialysis Note Dialysis Note Seen on Hemodialysis, tolerating treatment Well for now Vitals on Hemodialysis: 130/57 75 afeb General Appearance: Awake: Alert Oriented x 3 Neck: No JVD or JVP Chest: CTA Tod Heart: S1 S2 Abdomen - Soft NTND Extremities - No Edema ESRD : Dialysis as below F 180 NR 3:45 Hrs 3 K 2.5 Ca 140 Na 35 HC03 Qb 350 + Qd 500+ Heparin 0 Units Uf 3 Kgs or to dry weight as tolerated May give 25-50 gms of 25% Albumin if needed to maintain Hemodynamic stability Treatment plan reviewed and discussed with cell liner Vitals Vital Signs Vital Signs Date Time Temp Pulse Resp B/P (MAP) Pulse Ox O2 Delivery O2 Flow Rate FiO2 07/03/16 09:22 18 Nasal Cannula 2.0 07/03/16 07:53 97.4 79 134/64 (87) 100 97.4 Labs Last Labs Laboratory Tests Test 07/01/16 21:38 07/01/16 22:40 07/02/16 05:00 07/02/16 07:19 White Blood Count 6.1 x10^3/uL (4.0-11.0) 5.7 x10^3/uL (4.0-11.0) Red Blood Count 3.10 x10^6/uL (3.50-5.40) 3.19 x10^6/uL (3.50-5.40) Hemoglobin 9.1 g/dL (12.0-15.5) 9.2 g/dL (12.0-15.5) Hematocrit 27.2 % (36.0-47.0) 28.0 % (36.0-47.0) Mean Corpuscular Volume 88 fL (79-100) 88 fL (79-100) Mean Corpuscular Hemoglobin 29 pg (25-35) 29 pg (25-35) Mean Corpuscular Hemoglobin Concent 33 g/dL (31-37) 33 g/dL (31-37) Red Cell Distribution Width 18.2 % (11.5-14.5) 18.2 % (11.5-14.5) Platelet Count 183 x10^3/uL (140-400) 178 x10^3/uL (140-400) Neutrophils (%) (Auto) 72 % (31-73) 68 % (31-73) Lymphocytes (%) (Auto) 15 % (24-48) 18 % (24-48) Monocytes (%) (Auto) 9 % (0-9) 10 % (0-9) Eosinophils (%) (Auto) 4 % (0-3) 3 % (0-3) Basophils (%) (Auto) 1 % (0-3) 1 % (0-3) Neutrophils # (Auto) 4.4 x10^3uL (1.8-7.7) 3.9 x10^3uL (1.8-7.7) Lymphocytes # (Auto) 0.9 x10^3/uL (1.0-4.8) 1.0 x10^3/uL (1.0-4.8) Monocytes # (Auto) 0.5 x10^3/uL (0.0-1.1) 0.5 x10^3/uL (0.0-1.1) Eosinophils # (Auto) 0.2 x10^3/uL (0.0-0.7) 0.2 x10^3/uL (0.0-0.7) Basophils # (Auto) 0.0 x10^3/uL (0.0-0.2) 0.0 x10^3/uL (0.0-0.2) Prothrombin Time 15.1 SEC (11.7-14.0) Prothromb Time International Ratio 1.3 (0.8-1.1) Activated Partial Thromboplast Time 38 SEC (24-38) Urine Collection Type U cath Urine Color [place] Urine Clarity Turbid Urine pH 5.0 Urine Specific [place] 1.020 Urine Protein 100 mg/dL (NEG-TRACE) Urine Glucose (UA) Negative mg/dL (NEG) Urine Ketones (Stick) Trace mg/dL (NEG) Urine Blood Large (NEG) Urine Nitrite Negative (NEG) Urine Bilirubin Moderate (NEG) Urine Urobilinogen Dipstick 1.0 mg/dL (0.2 mg/dL) Urine Leukocyte Esterase Large (NEG) Urine RBC >40 /HPF (0-2) Urine WBC Tntc /HPF (0-4) Urine Squamous Epithelial Cells Few /LPF Urine Renal Epithelial Cells Occ /LPF Urine Bacteria Many /HPF (0-FEW) Urine Mucus Marked /LPF Sodium Level 129 mmol/L (136-145) 132 mmol/L (136-145) Potassium Level 4.5 mmol/L (3.5-5.1) 4.8 mmol/L (3.5-5.1) Chloride Level 97 mmol/L (98-107) 98 mmol/L (98-107) Carbon Dioxide Level 26 mmol/L (21-32) 27 mmol/L (21-32) Anion Gap 6 (6-14) 7 (6-14) Blood Urea Nitrogen 17 mg/dL (7-20) 19 mg/dL (7-20) Creatinine 2.0 mg/dL (0.6-1.0) 2.1 mg/dL (0.6-1.0) Estimated GFR (Cockcroft-Gault) 26.0 24.5 BUN/Creatinine Ratio 9 (6-20) Glucose Level 118 mg/dL (70-99) 59 mg/dL (70-99) Calcium Level 8.5 mg/dL (8.5-10.1) 8.5 mg/dL (8.5-10.1) Magnesium Level 2.0 mg/dL (1.8-2.4) Total Bilirubin 0.3 mg/dL (0.2-1.0) Aspartate Amino Transf (AST/SGOT) 15 U/L (15-37) Alanine Aminotransferase (ALT/SGPT) 15 U/L (14-59) Alkaline Phosphatase 107 U/L (46-116) Troponin I Quantitative 0.019 ng/mL (0.000-0.055) NL-Mow-K-Type Natriuretic Peptide 5393 pg/mL (0-124) Total Protein 7.6 g/dL (6.4-8.2) Albumin 2.6 g/dL (3.4-5.0) Albumin/Globulin Ratio 0.5 (1.0-1.7) Lipase 163 U/L (73-393) Thyroid Stimulating Hormone (TSH) 2.835 uIU/mL (0.358-3.74) Urine Opiates Screen Pos (NEG) Urine Methadone Screen Neg (NEG) Urine Barbiturates Neg (NEG) Urine Phencyclidine Screen Neg (NEG) Urine Amphetamine/Methamphetamine Neg (NEG) Urine Benzodiazepines Screen Neg (NEG) Urine Cocaine Screen Neg (NEG) Urine Cannabinoids Screen Neg (NEG) Urine Ethyl Alcohol Neg (NEG) O2 Saturation 94 % (92-99) Arterial Blood pH 7.32 (7.35-7.45) Arterial Blood pCO2 at Patient Temp 46 mmHg (35-46) Arterial Blood pO2 at Patient Temp 80 mmHg (75-108) Arterial Blood HCO3 23 mmol/L (21-28) Arterial Blood Base Excess -3 mmol/L (-3-3) FiO2 28 Glucose (Fingerstick) 56 mg/dL (70-99) Test 07/02/16 07:45 07/02/16 11:50 07/02/16 17:09 07/02/16 20:38 Glucose (Fingerstick) 96 mg/dL (70-99) 91 mg/dL (70-99) 195 mg/dL (70-99) 315 mg/dL (70-99) Test 07/03/16 03:20 07/03/16 07:27 White Blood Count 5.7 x10^3/uL (4.0-11.0) Red Blood Count 3.39 x10^6/uL (3.50-5.40) Hemoglobin 9.7 g/dL (12.0-15.5) Hematocrit 30.5 % (36.0-47.0) Mean Corpuscular Volume 90 fL (79-100) Mean Corpuscular Hemoglobin 29 pg (25-35) Mean Corpuscular Hemoglobin Concent 32 g/dL (31-37) Red Cell Distribution Width 18.2 % (11.5-14.5) Platelet Count 168 x10^3/uL (140-400) Neutrophils (%) (Auto) 74 % (31-73) Lymphocytes (%) (Auto) 16 % (24-48) Monocytes (%) (Auto) 7 % (0-9) Eosinophils (%) (Auto) 2 % (0-3) Basophils (%) (Auto) 1 % (0-3) Neutrophils # (Auto) 4.2 x10^3uL (1.8-7.7) Lymphocytes # (Auto) 0.9 x10^3/uL (1.0-4.8) Monocytes # (Auto) 0.4 x10^3/uL (0.0-1.1) Eosinophils # (Auto) 0.1 x10^3/uL (0.0-0.7) Basophils # (Auto) 0.0 x10^3/uL (0.0-0.2) Sodium Level 133 mmol/L (136-145) Potassium Level 4.4 mmol/L (3.5-5.1) Chloride Level 96 mmol/L (98-107) Carbon Dioxide Level 30 mmol/L (21-32) Anion Gap 7 (6-14) Blood Urea Nitrogen 22 mg/dL (7-20) Creatinine 1.9 mg/dL (0.6-1.0) Estimated GFR (Cockcroft-Gault) 27.5 BUN/Creatinine Ratio 12 (6-20) Glucose Level 242 mg/dL (70-99) Calcium Level 8.7 mg/dL (8.5-10.1) Total Bilirubin 0.3 mg/dL (0.2-1.0) Aspartate Amino Transf (AST/SGOT) 14 U/L (15-37) Alanine Aminotransferase (ALT/SGPT) 16 U/L (14-59) Alkaline Phosphatase 107 U/L (46-116) Total Protein 7.7 g/dL (6.4-8.2) Albumin 2.6 g/dL (3.4-5.0) Albumin/Globulin Ratio 0.5 (1.0-1.7) Glucose (Fingerstick) 197 mg/dL (70-99) Laboratory Tests Test 07/02/16 11:50 07/02/16 17:09 07/02/16 20:38 07/03/16 03:20 Glucose (Fingerstick) 91 mg/dL (70-99) 195 mg/dL (70-99) 315 mg/dL (70-99) White Blood Count 5.7 x10^3/uL (4.0-11.0) Red Blood Count 3.39 x10^6/uL (3.50-5.40) Hemoglobin 9.7 g/dL (12.0-15.5) Hematocrit 30.5 % (36.0-47.0) Mean Corpuscular Volume 90 fL (79-100) Mean Corpuscular Hemoglobin 29 pg (25-35) Mean Corpuscular Hemoglobin Concent 32 g/dL (31-37) Red Cell Distribution Width 18.2 % (11.5-14.5) Platelet Count 168 x10^3/uL (140-400) Neutrophils (%) (Auto) 74 % (31-73) Lymphocytes (%) (Auto) 16 % (24-48) Monocytes (%) (Auto) 7 % (0-9) Eosinophils (%) (Auto) 2 % (0-3) Basophils (%) (Auto) 1 % (0-3) Neutrophils # (Auto) 4.2 x10^3uL (1.8-7.7) Lymphocytes # (Auto) 0.9 x10^3/uL (1.0-4.8) Monocytes # (Auto) 0.4 x10^3/uL (0.0-1.1) Eosinophils # (Auto) 0.1 x10^3/uL (0.0-0.7) Basophils # (Auto) 0.0 x10^3/uL (0.0-0.2) Sodium Level 133 mmol/L (136-145) Potassium Level 4.4 mmol/L (3.5-5.1) Chloride Level 96 mmol/L (98-107) Carbon Dioxide Level 30 mmol/L (21-32) Anion Gap 7 (6-14) Blood Urea Nitrogen 22 mg/dL (7-20) Creatinine 1.9 mg/dL (0.6-1.0) Estimated GFR (Cockcroft-Gault) 27.5 BUN/Creatinine Ratio 12 (6-20) Glucose Level 242 mg/dL (70-99) Calcium Level 8.7 mg/dL (8.5-10.1) Total Bilirubin 0.3 mg/dL (0.2-1.0) Aspartate Amino Transf (AST/SGOT) 14 U/L (15-37) Alanine Aminotransferase (ALT/SGPT) 16 U/L (14-59) Alkaline Phosphatase 107 U/L (46-116) Total Protein 7.7 g/dL (6.4-8.2) Albumin 2.6 g/dL (3.4-5.0) Albumin/Globulin Ratio 0.5 (1.0-1.7) Test 07/03/16 07:27 Glucose (Fingerstick) 197 mg/dL (70-99) Assessment Assessment Problems Medical Problems: (1) Encephalopathy Status: Acute (2) Renal failure Status: Acute (3) Sinusitis Status: Acute (4) UTI (urinary tract infection) Status: Acute Problems: Plan Plan of Care Problems Medical Problems: (1) Encephalopathy Status: Acute (2) Renal failure Status: Acute (3) Sinusitis Status: Acute (4) UTI (urinary tract infection) Status: Acute GANGA TANG MD July 03, 2016 10:21
--- NOTE | 2016-07-03 10:58 | PDOC ---
PROGRESS NOTES Chief Complaint Chief Complaint acute metabolic encephalopathy, UTI, ESRD DM2, decent control morbid obesity, BMI 45 w/ mod malnutrition weakness and debility hypoxia, NOS, ESRD, obesity, anemia of CKD Vitals Vitals Vital Signs Date Time Temp Pulse Resp B/P (MAP) Pulse Ox O2 Delivery O2 Flow Rate FiO2 07/03/16 09:22 18 Nasal Cannula 2.0 07/03/16 07:53 97.4 79 134/64 (87) 100 97.4 Physical Exam General: Alert, Oriented X3, Cooperative, No acute distress Lungs: Clear Abdomen: Normal bowel sounds, Soft, No tenderness (obese) Extremities: No clubbing, No edema Skin: Other (LE skin thickening, not fully sclerotic, tr edema to feet) Labs LABS Laboratory Tests Test 07/02/16 11:50 07/02/16 17:09 07/02/16 20:38 07/03/16 03:20 Glucose (Fingerstick) 91 mg/dL (70-99) 195 mg/dL (70-99) 315 mg/dL (70-99) White Blood Count 5.7 x10^3/uL (4.0-11.0) Red Blood Count 3.39 x10^6/uL (3.50-5.40) Hemoglobin 9.7 g/dL (12.0-15.5) Hematocrit 30.5 % (36.0-47.0) Mean Corpuscular Volume 90 fL (79-100) Mean Corpuscular Hemoglobin 29 pg (25-35) Mean Corpuscular Hemoglobin Concent 32 g/dL (31-37) Red Cell Distribution Width 18.2 % (11.5-14.5) Platelet Count 168 x10^3/uL (140-400) Neutrophils (%) (Auto) 74 % (31-73) Lymphocytes (%) (Auto) 16 % (24-48) Monocytes (%) (Auto) 7 % (0-9) Eosinophils (%) (Auto) 2 % (0-3) Basophils (%) (Auto) 1 % (0-3) Neutrophils # (Auto) 4.2 x10^3uL (1.8-7.7) Lymphocytes # (Auto) 0.9 x10^3/uL (1.0-4.8) Monocytes # (Auto) 0.4 x10^3/uL (0.0-1.1) Eosinophils # (Auto) 0.1 x10^3/uL (0.0-0.7) Basophils # (Auto) 0.0 x10^3/uL (0.0-0.2) Sodium Level 133 mmol/L (136-145) Potassium Level 4.4 mmol/L (3.5-5.1) Chloride Level 96 mmol/L (98-107) Carbon Dioxide Level 30 mmol/L (21-32) Anion Gap 7 (6-14) Blood Urea Nitrogen 22 mg/dL (7-20) Creatinine 1.9 mg/dL (0.6-1.0) Estimated GFR (Cockcroft-Gault) 27.5 BUN/Creatinine Ratio 12 (6-20) Glucose Level 242 mg/dL (70-99) Calcium Level 8.7 mg/dL (8.5-10.1) Total Bilirubin 0.3 mg/dL (0.2-1.0) Aspartate Amino Transf (AST/SGOT) 14 U/L (15-37) Alanine Aminotransferase (ALT/SGPT) 16 U/L (14-59) Alkaline Phosphatase 107 U/L (46-116) Total Protein 7.7 g/dL (6.4-8.2) Albumin 2.6 g/dL (3.4-5.0) Albumin/Globulin Ratio 0.5 (1.0-1.7) Test 07/03/16 07:27 Glucose (Fingerstick) 197 mg/dL (70-99) Assessment and Plan Assessmemt and Plan try to DC to [facility] Problems Medical Problems: (1) Encephalopathy Status: Acute (2) Renal failure Status: Acute (3) Sinusitis Status: Acute (4) UTI (urinary tract infection) Status: Acute Problems: Comment Review of Relevant I have reviewed the following items nelda (where applicable) has been applied. Labs Laboratory Tests Test 07/01/16 21:38 07/01/16 22:40 07/02/16 05:00 07/02/16 07:19 White Blood Count 6.1 x10^3/uL (4.0-11.0) 5.7 x10^3/uL (4.0-11.0) Red Blood Count 3.10 x10^6/uL (3.50-5.40) 3.19 x10^6/uL (3.50-5.40) Hemoglobin 9.1 g/dL (12.0-15.5) 9.2 g/dL (12.0-15.5) Hematocrit 27.2 % (36.0-47.0) 28.0 % (36.0-47.0) Mean Corpuscular Volume 88 fL (79-100) 88 fL (79-100) Mean Corpuscular Hemoglobin 29 pg (25-35) 29 pg (25-35) Mean Corpuscular Hemoglobin Concent 33 g/dL (31-37) 33 g/dL (31-37) Red Cell Distribution Width 18.2 % (11.5-14.5) 18.2 % (11.5-14.5) Platelet Count 183 x10^3/uL (140-400) 178 x10^3/uL (140-400) Neutrophils (%) (Auto) 72 % (31-73) 68 % (31-73) Lymphocytes (%) (Auto) 15 % (24-48) 18 % (24-48) Monocytes (%) (Auto) 9 % (0-9) 10 % (0-9) Eosinophils (%) (Auto) 4 % (0-3) 3 % (0-3) Basophils (%) (Auto) 1 % (0-3) 1 % (0-3) Neutrophils # (Auto) 4.4 x10^3uL (1.8-7.7) 3.9 x10^3uL (1.8-7.7) Lymphocytes # (Auto) 0.9 x10^3/uL (1.0-4.8) 1.0 x10^3/uL (1.0-4.8) Monocytes # (Auto) 0.5 x10^3/uL (0.0-1.1) 0.5 x10^3/uL (0.0-1.1) Eosinophils # (Auto) 0.2 x10^3/uL (0.0-0.7) 0.2 x10^3/uL (0.0-0.7) Basophils # (Auto) 0.0 x10^3/uL (0.0-0.2) 0.0 x10^3/uL (0.0-0.2) Prothrombin Time 15.1 SEC (11.7-14.0) Prothromb Time International Ratio 1.3 (0.8-1.1) Activated Partial Thromboplast Time 38 SEC (24-38) Urine Collection Type U cath Urine Color Yanira Urine Clarity Turbid Urine pH 5.0 Urine Specific Hunter 1.020 Urine Protein 100 mg/dL (NEG-TRACE) Urine Glucose (UA) Negative mg/dL (NEG) Urine Ketones (Stick) Trace mg/dL (NEG) Urine Blood Large (NEG) Urine Nitrite Negative (NEG) Urine Bilirubin Moderate (NEG) Urine Urobilinogen Dipstick 1.0 mg/dL (0.2 mg/dL) Urine Leukocyte Esterase Large (NEG) Urine RBC >40 /HPF (0-2) Urine WBC Tntc /HPF (0-4) Urine Squamous Epithelial Cells Few /LPF Urine Renal Epithelial Cells Occ /LPF Urine Bacteria Many /HPF (0-FEW) Urine Mucus Marked /LPF Sodium Level 129 mmol/L (136-145) 132 mmol/L (136-145) Potassium Level 4.5 mmol/L (3.5-5.1) 4.8 mmol/L (3.5-5.1) Chloride Level 97 mmol/L (98-107) 98 mmol/L (98-107) Carbon Dioxide Level 26 mmol/L (21-32) 27 mmol/L (21-32) Anion Gap 6 (6-14) 7 (6-14) Blood Urea Nitrogen 17 mg/dL (7-20) 19 mg/dL (7-20) Creatinine 2.0 mg/dL (0.6-1.0) 2.1 mg/dL (0.6-1.0) Estimated GFR (Cockcroft-Gault) 26.0 24.5 BUN/Creatinine Ratio 9 (6-20) Glucose Level 118 mg/dL (70-99) 59 mg/dL (70-99) Calcium Level 8.5 mg/dL (8.5-10.1) 8.5 mg/dL (8.5-10.1) Magnesium Level 2.0 mg/dL (1.8-2.4) Total Bilirubin 0.3 mg/dL (0.2-1.0) Aspartate Amino Transf (AST/SGOT) 15 U/L (15-37) Alanine Aminotransferase (ALT/SGPT) 15 U/L (14-59) Alkaline Phosphatase 107 U/L (46-116) Troponin I Quantitative 0.019 ng/mL (0.000-0.055) NA-Zjb-D-Type Natriuretic Peptide 5393 pg/mL (0-124) Total Protein 7.6 g/dL (6.4-8.2) Albumin 2.6 g/dL (3.4-5.0) Albumin/Globulin Ratio 0.5 (1.0-1.7) Lipase 163 U/L (73-393) Thyroid Stimulating Hormone (TSH) 2.835 uIU/mL (0.358-3.74) Urine Opiates Screen Pos (NEG) Urine Methadone Screen Neg (NEG) Urine Barbiturates Neg (NEG) Urine Phencyclidine Screen Neg (NEG) Urine Amphetamine/Methamphetamine Neg (NEG) Urine Benzodiazepines Screen Neg (NEG) Urine Cocaine Screen Neg (NEG) Urine Cannabinoids Screen Neg (NEG) Urine Ethyl Alcohol Neg (NEG) O2 Saturation 94 % (92-99) Arterial Blood pH 7.32 (7.35-7.45) Arterial Blood pCO2 at Patient Temp 46 mmHg (35-46) Arterial Blood pO2 at Patient Temp 80 mmHg (75-108) Arterial Blood HCO3 23 mmol/L (21-28) Arterial Blood Base Excess -3 mmol/L (-3-3) FiO2 28 Glucose (Fingerstick) 56 mg/dL (70-99) Test 07/02/16 07:45 07/02/16 11:50 07/02/16 17:09 07/02/16 20:38 Glucose (Fingerstick) 96 mg/dL (70-99) 91 mg/dL (70-99) 195 mg/dL (70-99) 315 mg/dL (70-99) Test 07/03/16 03:20 07/03/16 07:27 White Blood Count 5.7 x10^3/uL (4.0-11.0) Red Blood Count 3.39 x10^6/uL (3.50-5.40) Hemoglobin 9.7 g/dL (12.0-15.5) Hematocrit 30.5 % (36.0-47.0) Mean Corpuscular Volume 90 fL (79-100) Mean Corpuscular Hemoglobin 29 pg (25-35) Mean Corpuscular Hemoglobin Concent 32 g/dL (31-37) Red Cell Distribution Width 18.2 % (11.5-14.5) Platelet Count 168 x10^3/uL (140-400) Neutrophils (%) (Auto) 74 % (31-73) Lymphocytes (%) (Auto) 16 % (24-48) Monocytes (%) (Auto) 7 % (0-9) Eosinophils (%) (Auto) 2 % (0-3) Basophils (%) (Auto) 1 % (0-3) Neutrophils # (Auto) 4.2 x10^3uL (1.8-7.7) Lymphocytes # (Auto) 0.9 x10^3/uL (1.0-4.8) Monocytes # (Auto) 0.4 x10^3/uL (0.0-1.1) Eosinophils # (Auto) 0.1 x10^3/uL (0.0-0.7) Basophils # (Auto) 0.0 x10^3/uL (0.0-0.2) Sodium Level 133 mmol/L (136-145) Potassium Level 4.4 mmol/L (3.5-5.1) Chloride Level 96 mmol/L (98-107) Carbon Dioxide Level 30 mmol/L (21-32) Anion Gap 7 (6-14) Blood Urea Nitrogen 22 mg/dL (7-20) Creatinine 1.9 mg/dL (0.6-1.0) Estimated GFR (Cockcroft-Gault) 27.5 BUN/Creatinine Ratio 12 (6-20) Glucose Level 242 mg/dL (70-99) Calcium Level 8.7 mg/dL (8.5-10.1) Total Bilirubin 0.3 mg/dL (0.2-1.0) Aspartate Amino Transf (AST/SGOT) 14 U/L (15-37) Alanine Aminotransferase (ALT/SGPT) 16 U/L (14-59) Alkaline Phosphatase 107 U/L (46-116) Total Protein 7.7 g/dL (6.4-8.2) Albumin 2.6 g/dL (3.4-5.0) Albumin/Globulin Ratio 0.5 (1.0-1.7) Glucose (Fingerstick) 197 mg/dL (70-99) Laboratory Tests Test 07/02/16 11:50 07/02/16 17:09 07/02/16 20:38 07/03/16 03:20 Glucose (Fingerstick) 91 mg/dL (70-99) 195 mg/dL (70-99) 315 mg/dL (70-99) White Blood Count 5.7 x10^3/uL (4.0-11.0) Red Blood Count 3.39 x10^6/uL (3.50-5.40) Hemoglobin 9.7 g/dL (12.0-15.5) Hematocrit 30.5 % (36.0-47.0) Mean Corpuscular Volume 90 fL (79-100) Mean Corpuscular Hemoglobin 29 pg (25-35) Mean Corpuscular Hemoglobin Concent 32 g/dL (31-37) Red Cell Distribution Width 18.2 % (11.5-14.5) Platelet Count 168 x10^3/uL (140-400) Neutrophils (%) (Auto) 74 % (31-73) Lymphocytes (%) (Auto) 16 % (24-48) Monocytes (%) (Auto) 7 % (0-9) Eosinophils (%) (Auto) 2 % (0-3) Basophils (%) (Auto) 1 % (0-3) Neutrophils # (Auto) 4.2 x10^3uL (1.8-7.7) Lymphocytes # (Auto) 0.9 x10^3/uL (1.0-4.8) Monocytes # (Auto) 0.4 x10^3/uL (0.0-1.1) Eosinophils # (Auto) 0.1 x10^3/uL (0.0-0.7) Basophils # (Auto) 0.0 x10^3/uL (0.0-0.2) Sodium Level 133 mmol/L (136-145) Potassium Level 4.4 mmol/L (3.5-5.1) Chloride Level 96 mmol/L (98-107) Carbon Dioxide Level 30 mmol/L (21-32) Anion Gap 7 (6-14) Blood Urea Nitrogen 22 mg/dL (7-20) Creatinine 1.9 mg/dL (0.6-1.0) Estimated GFR (Cockcroft-Gault) 27.5 BUN/Creatinine Ratio 12 (6-20) Glucose Level 242 mg/dL (70-99) Calcium Level 8.7 mg/dL (8.5-10.1) Total Bilirubin 0.3 mg/dL (0.2-1.0) Aspartate Amino Transf (AST/SGOT) 14 U/L (15-37) Alanine Aminotransferase (ALT/SGPT) 16 U/L (14-59) Alkaline Phosphatase 107 U/L (46-116) Total Protein 7.7 g/dL (6.4-8.2) Albumin 2.6 g/dL (3.4-5.0) Albumin/Globulin Ratio 0.5 (1.0-1.7) Test 07/03/16 07:27 Glucose (Fingerstick) 197 mg/dL (70-99) Microbiology 07/01/16 Urine Culture - Preliminary, Resulted 07/01/16 Urine Culture Result 1 (RICHARD) - Preliminary, Resulted Medications Current Medications Ceftriaxone Sodium 1 gm/ Sodium Chloride 50 ml @ 100 mls/hr Q24H IV Last administered on 07/02/16 22:00; Start 07/02/16 at 22:00 Ceftriaxone Sodium 50 ml @ 100 mls/hr 1X ONCE IV Last administered on 22:34; Start 07/01/16 at 22:30; Stop 07/01/16 at 22:59; Status DC Ondansetron HCl (Zofran) 4 mg PRN Q8HRS PRN IV NAUSEA/VOMITING; Start 07/01/16 at 23:15; Stop 07/02/16 at 23:14; Status DC Dextrose (Dextrose 50%-Water Syringe) 25 gm STK-MED ONCE IV ; Start 07/02/16 at 07:21; Stop 07/02/16 at 07:22; Status DC Dextrose (Dextrose 50%-Water Syringe) 12.5 gm PRN Q15MIN PRN IV SEE COMMENTS Last administered on 07/02/16 07:25; Start 07/02/16 at 07:30 Albuterol Sulfate (Ventolin Neb Soln) 2.5 mg PRN QID PRN NEB SHORTNESS OF BREATH; Start 07/02/16 at 09:15 Tramadol HCl (Ultram) 50 mg PRN Q6HRS PRN PO MILD PAIN; Start 07/02/16 at 09:00 Acetaminophen (Tylenol) 650 mg PRN Q6HRS PRN PO pain; Start 07/02/16 at 09:00 Aspirin (Children'S Aspirin) 81 mg DAILY PO Last administered on 07/02/16 10:12 ; Start 07/02/16 at 10:00 Bisacodyl (Dulcolax Tab) 5 mg PRN DAILY PRN PO CONSTIPATION; Start 07/02/16 at 09:30 Carvedilol (Coreg) 6.25 mg BIDWMEALS PO Last administered on 07/02/16 16:37; Start 07/02/16 at 10:00 Docusate Sodium (Colace) 100 mg DAILY PO Last administered on 07/02/16 10:10; Start 07/02/16 at 10:00 Famotidine (Pepcid) 20 mg HS PO Last administered on 07/02/16 21:08; Start 07/02 at 21:00 Fentanyl (Duragesic 25mcg/ Hr Patch) 1 patch Q3DAYS TD ; Start 07/02/16 at 10:00 Ferrous Sulfate (Feosol) 325 mg TIDWMEALS PO Last administered on 07/02/16 16: 37; Start 07/02/16 at 12:00 Fluoxetine HCl (Prozac) 20 mg DAILY PO Last administered on 07/02/16 10:12; Start 07/02/16 at 10:00 Acetaminophen/ Hydrocodone Bitart (Lortab 5/325) 1 tab PRN Q4HRS PRN PO MODERATE-SEVERE PAIN Last administered on 07/03/16 09:22; Start 07/02/16 at 09:30 Albuterol/ Ipratropium (Duoneb) 3 ml RTQID NEB ; Start 07/02/16 at 10:00 Lidocaine (Lidoderm) 1 patch DAILY TP ; Start 07/02/16 at 10:00; Stop 07/02/16 at 10:00; Status DC Magnesium Oxide (Magnesium Oxide) 400 mg DAILY PO Last administered on 10:12; Start 07/02/16 at 10:00 Nicotine (Nicoderm Cq 7mg) 1 patch DAILY TD Last administered on 07/02/16 10:17 ; Start 07/02/16 at 10:00 Simethicone (Gas-X) 80 mg QID PO Last administered on 07/02/16 21:07; Start 07/02/16 at 10:00 Tamsulosin HCl (Flomax) 0.4 mg HS PO Last administered on 07/02/16 21:08; Start 07/02/16 at 21:00 Bumetanide (Bumex) 2 mg DAILY PO Last administered on 07/02/16 10:09; Start 07/02/16 at 10:00 Gabapentin (Neurontin) 300 mg TID PO Last administered on 07/02/16 21:07; Start 07/02/16 at 14:00 Glimepiride (Amaryl) 4 mg DAILY PO ; Start 07/02/16 at 10:00 Multivitamins (Thera M Plus) 1 tab DAILY PO Last administered on 07/02/16 10:12 ; Start 07/02/16 at 10:00 Nystatin (Nystop) 1 gabrielle TID TP Last administered on 07/02/16 16:00; Start at 14:00 Losartan Potassium (Cozaar) 50 mg DAILY PO Last administered on 07/02/16 10:12 ; Start 07/02/16 at 10:00 Lidocaine (Lidoderm) 2 patch DAILY TP Last administered on 07/02/16 10:17; Start 07/02/16 at 10:00 Methylprednisolone Acetate (DEPO-Medrol 40MG VIAL) 40 mg 1X ONCE IM Last administered on 07/02/16 10:07; Start 07/02/16 at 10:00; Stop 07/02/16 at 10:01; Status DC Bupivacaine HCl (Sensorcaine-Mpf 0.25%) 10 ml 1X ONCE IJ Last administered on 07/02/16 10:08; Start 07/02/16 at 10:00; Stop 07/02/16 at 10:01; Status DC Methylprednisolone Acetate (DEPO-Medrol 40MG VIAL) 40 mg 1X ONCE IM Last administered on 07/02/16 10:08; Start 07/02/16 at 10:00; Stop 07/02/16 at 10:01; Status DC Diclofenac Sodium (Voltaren) 1 gabrielle BID TP Last administered on 07/02/16 21:09; Start 07/02/16 at 11:00 Sodium Chloride 1,000 ml @ 1,000 mls/hr Q1H PRN IV hypotension; Start 07/02/16 at 15:00; Stop 07/02/16 at 20:59; Status DC Sodium Chloride (Normal Saline Flush) 10 ml 1X PRN PRN IV AP catheter pack; Start 07/02/16 at 15:00; Stop 07/03/16 at 14:59 Sodium Chloride (Normal Saline Flush) 10 ml 1X PRN PRN IV [employer] catheter pack; Start 07/02/16 at 15:00; Stop 07/03/16 at 14:59 Sodium Chloride 1,000 ml @ 400 mls/hr Q2H30M PRN IV PATENCY; Start 07/02/16 at 15:00; Stop 07/03/16 at 02:59; Status DC Info (PHARMACY MONITORING -- do not chart) 1 each PRN DAILY PRN MC SEE COMMENTS ; Start 07/02/16 at 15:00; Stop 07/03/16 at 09:24; Status DC Info (PHARMACY MONITORING -- do not chart) 1 each PRN DAILY PRN MC SEE COMMENTS ; Start 07/02/16 at 15:00; Stop 07/03/16 at 09:24; Status DC Sodium Chloride 1,000 ml @ 1,000 mls/hr Q1H PRN IV hypotension; Start 07/03/16 at 09:08; Stop 07/03/16 at 15:07 Sodium Chloride (Normal Saline Flush) 10 ml 1X PRN PRN IV AP catheter pack; Start 07/03/16 at 09:15; Stop 07/04/16 at 09:14 Sodium Chloride (Normal Saline Flush) 10 ml 1X PRN PRN IV [employer] catheter pack; Start 07/03/16 at 09:15; Stop 07/04/16 at 09:14 Sodium Chloride 1,000 ml @ 400 mls/hr Q2H30M PRN IV PATENCY; Start 07/03/16 at 09:08; Stop 07/03/16 at 21:07 Info (PHARMACY MONITORING -- do not chart) 1 each PRN DAILY PRN MC SEE COMMENTS ; Start 07/03/16 at 09:15 Info (PHARMACY MONITORING -- do not chart) 1 each PRN DAILY PRN MC SEE COMMENTS ; Start 07/03/16 at 09:15; Stop 07/03/16 at 09:25; Status DC Active Scripts Active Reported Valsartan 80 Mg Tablet 80 Mg PO DAILY Simethicone 80 Mg Tab.chew 80 Mg PO QID Prozac (Fluoxetine Hcl) 20 Mg Capsule 20 Mg PO DAILY Famotidine 20 Mg Tablet 20 Mg PO HS Nystatin 1 Each Powder.ea. 1 Each PO TID NICODERM CQ 7mg (Nicotine) 1 Each Patch.td24 1 Patch TD DAILY Multi Vitamin Daily (Multivitamin) 1 Each Tablet 1 Each PO DAILY Mag-Oxide (Magnesium Oxide) 400 Mg Tablet 1 Tab PO DAILY Hydrocodone-Apap 5-325 (Hydrocodone Bit/Acetaminophen) 1 Each Tablet 1 Tab PO PRN Q4HRS PRN Lidoderm (Lidocaine) 700 Mg Adh..patch 1 Patch TP DAILY Flomax (Tamsulosin Hcl) 0.4 Mg Cap.er.24h 0.4 Mg PO HS Ferrous Sulfate 325 Mg Tablet 325 Mg PO TID DURAGESIC 25mcg/hr (Fentanyl) 1 Each Patch.td72 1 Patch TP Q3DAYS Coreg (Carvedilol) 6.25 Mg Tablet 6.25 Mg PO BIDWMEALS Colace (Docusate Sodium) 100 Mg Capsule 100 Mg PO DAILY Bumetanide 2 Mg Tablet 1 Tab PO DAILY Dulcolax (Bisacodyl) 5 Mg Tablet.dr 5 Mg PO PRN DAILY PRN Glimepiride 4 Mg Tablet 4 Mg PO DAILY Gabapentin 300 Mg Capsule 300 Mg PO TID Acetaminophen 325 Mg Capsule 650 Mg PO Q6HRS PRN Duoneb 0.5-3(2.5) Mg/3 Ml (Albuterol/Ipratropium) 3 Ml Ampul.neb 3 Ml NEB QID Aspirin 81 Mg Tab.chew 81 Mg PO DAILY Vitals/I & O Vital Sign - Last 24 Hours 07/02/16 07/02/16 07/02/16 07/02/16 11:00 11:52 16:37 16:45 Temp 98.8 98.4 98.8 98.4 Pulse 95 93 93 Resp 18 18 16 B/P (MAP) 124/59 (80) 134/53 134/53 (80) Pulse Ox 100 95 O2 Delivery Nasal Cannula Room Air Nasal Cannula O2 Flow Rate 2.0 2.0 07/02/16 07/02/16 07/02/16 07/02/16 19:48 19:54 20:14 22:32 Temp 98.7 98.4 98.7 98.4 Pulse 94 88 Resp 16 18 B/P (MAP) 132/61 (84) 140/73 (95) Pulse Ox 97 99 97 O2 Delivery Nasal Cannula Nasal Cannula Nasal Cannula O2 Flow Rate 2.0 2.0 2.0 2.0 07/03/16 07/03/16 07/03/16 07/03/16 02:19 07:53 08:00 09:22 Temp 98.2 97.4 98.2 97.4 Pulse 78 79 Resp 16 23 18 B/P (MAP) 136/71 (92) 134/64 (87) Pulse Ox 96 100 O2 Delivery Nasal Cannula Nasal Cannula Nasal Cannula Nasal Cannula O2 Flow Rate 2.0 2.0 2.0 Intake and Output 07/02/16 07/02/16 07/03/16 15:00 23:00 07:00 Intake Total 750 ml 120 ml Output Total 200 ml Balance 550 ml 120 ml EMEKA MARY MD July 03, 2016 10:58
[2016-07-03] MEDS ORDERED: HYDR-2666 PO (11:03)
[2016-07-03] MEDS ORDERED: CIPR250T30 PO (11:34)
--- NOTE | 2016-07-03 13:10 | CONS ---
DATE OF CONSULTATION: PRIMARY PHYSICIAN: Dr. Palma. REASON FOR CONSULTATION: ESRD dialysis. HISTORY OF PRESENT ILLNESS: The patient is a 55-year-old female who was transferred from [facility] for confusion and lethargy. She had trouble following commands last night and especially after returning from dialysis, she was noted to be more confused. She has been complaining of right shoulder pain and has been on Klonopin and fentanyl. She claims she has been asking them to discontinue those medications. She does not know when she last got them. She is more alert and animated at the time of my visit. She was, however, somewhat hypoglycemic. Blood pressures have been good. There is some question about some possible discolored looking urine. The patient was evaluated on dialysis and is communicative, talkative and denies any problems at this time. GANGA TANG MD DR: EAMON/jenna JOB#: [id number] / [id number]
[2016-07-03] MEDS: LOSARTAN POTASSIUM 50 MG TABLET. PO SCH (13:16)
[2016-07-03] MEDS: ASPIRIN CHEWABLE 81 MG TABLET. PO SCH (13:16)
[2016-07-03] MEDS: GLIMEPIRIDE 2 MG TABLET. PO SCH (13:16)
[2016-07-03] MEDS: BUMETANIDE 1 MG TABLET. PO SCH (13:16)
[2016-07-03] MEDS: FLUoxetine HCL 20 MG CAPSULE PO SCH (13:16)
[2016-07-03] MEDS: MAGNESIUM OXIDE 400 MG TABLET PO SCH (13:16)
[2016-07-03] MEDS: DOCUSATE SODIUM 100 MG CAPSULE. PO SCH (13:17)
[2016-07-03] MEDS: MULTIVITAMIN with MINERAL TABLET. PO SCH (13:17)
[2016-07-03] MEDS: CARVEDILOL 6.25 MG TABLET. PO SCH (13:17)
[2016-07-03] MEDS: LIDOCAINE (700MG/PATCH) PATCH. TP SCH (13:18)
[2016-07-03] MEDS: NICOTINE 7MG PATCH. TD SCH (13:18)
[2016-07-03] MEDS: DICLOFENAC SODIUM 1% TOPICAL GEL 100GM TUBE. TP SCH (13:28)
[2016-07-03 13:29] VITALS: BP 140/55
== END 2016-07-03 17:00 | DRG 689 ==
LOC: ER 21:25 → 2 NORTH 22:43
PROVIDERS: ADMIT Internal Medicine; ATTEND Internal Medicine
PROC: 3E0U33Z Introduction of Anti-inflammatory into Joints, Percutaneous Approach (ICD-10-PCS; 2016-07-02)
PROC: 3E0U3BZ Introduction of Anesthetic Agent into Joints, Percutaneous Approach (ICD-10-PCS; 2016-07-02)
PROC: 5A1D00Z (ICD-10-PCS; principal; 2016-07-03)
DX: N39.0 Urinary tract infection, site not specified (principal); G93.41 Metabolic encephalopathy; N18.6 End stage renal disease; E43 Unspecified severe protein-calorie malnutrition; I13.2 Hypertensive heart and chronic kidney disease with heart failure and with stage 5 chronic kidney disease, or end stage renal disease; E66.2 Morbid (severe) obesity with alveolar hypoventilation; Z68.42 Body mass index [BMI] 45.0-49.9, adult; F32.9 Major depressive disorder, single episode, unspecified; M54.5 Low back pain; G89.29 Other chronic pain; D63.1 Anemia in chronic kidney disease; E11.22 Type 2 diabetes mellitus with diabetic chronic kidney disease; E11.42 Type 2 diabetes mellitus with diabetic polyneuropathy; E11.649 Type 2 diabetes mellitus with hypoglycemia without coma; E78.5 Hyperlipidemia, unspecified; I25.10 Atherosclerotic heart disease of native coronary artery without angina pectoris; I50.9 Heart failure, unspecified; J44.9 Chronic obstructive pulmonary disease, unspecified; Z60.2 Problems related to living alone; J32.9 Chronic sinusitis, unspecified; K21.9 Gastro-esophageal reflux disease without esophagitis; M17.0 Bilateral primary osteoarthritis of knee; M21.371 Foot drop, right foot; M25.511 Pain in right shoulder; M25.561 Pain in right knee; M21.372 Foot drop, left foot; M75.91 Shoulder lesion, unspecified, right shoulder; R09.02 Hypoxemia; Z82.49 Family history of ischemic heart disease and other diseases of the circulatory system; Z83.3 Family history of diabetes mellitus; Z99.2 Dependence on renal dialysis; Z95.0 Presence of cardiac pacemaker; Z98.49 Cataract extraction status, unspecified eye; Z88.8 Allergy status to other drugs, medicaments and biological substances; Z88.1 Allergy status to other antibiotic agents; Z91.030 Bee allergy status
CPT/HCPCS: 36415; 36600; 70450; 71010; 73030; 80048; 80053; 81001; 82805; 82947; 83690; 83735; 83880; 84443; 84484; 85027; 85610; 85730; 87086; 93005; 94250; 94760; 96365; G0481; J0690; J0696; J1030; J3490; J7042; 99285-25

== ENCOUNTER 2016-10-10 18:58 | Inpatient (IN) | payer MEDICARE, OTHER ==
[~2016-10-10] VITALS: Ht 152.4 cm; Wt 93.9 kg
[~2016-10-10 18:58] MED LIST changes: +ASPI-612 PO; +ASPI-630 PO; -ASPI81TA2 PO; -ASPI81TA9 PO; +BISA-42 PO; +CARV6.25 PO; +CIPR250T30 PO; +DOCU-109 PO; +FAMO20TA5 PO; +FENT1PAT90 TP; +FERR-26 PO; +FLUO20CA16 PO; +HYDR-2758 PO; +LIDO700A4 TP; +MAGN250T10 PO; -MAGN250T5 PO; +MAGN400T22 PO; +NICO1PAT27 TD; -NPH,100V4 SQ; +NPH,100V5 SQ; +NYST1POW2 PO; +SIME80TA14 PO; +TAMS0.4C97 PO; +VALS80TA22 PO
[2016-10-10] MEDS ORDERED: ONDANSETRON PF 4 MG/2 ML VIAL. IV ONE (20:00)
[2016-10-10] MEDS ORDERED: HYDROmorphone 2 MG/ML VIAL IV ONE (20:00)
--- NOTE | 2016-10-10 20:49 | RAD ---
Limited extremity ultrasound dated 10/10/2016. No comparison available. CLINICAL INDICATION: Right thigh and groin induration. Possible abscess. FINDINGS: Sonographic imaging was performed over the area of redness and swelling. There is a complex fluid collection within the subcutaneous tissues deep to the area of swelling that measures 6.5 x 13.3 x 2.1 cm. No apparent solid component. IMPRESSION: Complex fluid collection within the subcutaneous tissues of the right thigh, nonspecific. This could represent liquefying hematoma or abscess. Recommend clinical correlation. Electronically signed by: Raimundo Floyd MD (10/10/2016 8:46 PM) [id number]
[2016-10-10 20:52] LABS: BASO % 0 % (0-3); EOS % 2 % (0-3); LYMPH # 0.6 x10^3/uL (1.0-4.8); LYMPH % 8 % (24-48); MEAN CORPUSCULAR HEMOGLOBIN 33 pg (25-35); MEAN CORPUSCULAR HGB CONC 34 g/dL (31-37); MEAN CORPUSCULAR VOLUME 95 fL (79-100); MONO % 5 % (0-9); NEUT % 84 % (31-73); PLATELET COUNT 89 x10^3/uL (140-400); RED BLOOD COUNT 2.05 x10^6/uL (3.50-5.40); RED CELL DISTRIBUTION WIDTH 19.1 % (11.5-14.5); WHITE BLOOD COUNT 7.3 x10^3/uL (4.0-11.0)
[2016-10-10 20:55] LABS: HEMATOCRIT 19.5 % (36.0-47.0); HEMOGLOBIN 6.7 g/dL (12.0-15.5)
[2016-10-10 21:08] LABS: CALCIUM 8.5 mg/dL (8.5-10.1); CREATININE 2.9 mg/dL (0.6-1.0); GFR 16.8; POTASSIUM 5.7 mmol/L (3.5-5.1)
[2016-10-10 21:23] LABS: ALBUMIN 3.2 g/dL (3.4-5.0); ALBUMIN/GLOBULIN RATIO 0.7 (1.0-1.7); TOTAL BILIRUBIN 0.4 mg/dL (0.2-1.0); TOTAL PROTEIN 7.9 g/dL (6.4-8.2)
[2016-10-10] MEDS ORDERED: MORPHINE SULFATE 4 MG/ML DISP.SYRIN. IV PRN (22:45)
[2016-10-10] MEDS ORDERED: ONDANSETRON PF 4 MG/2 ML VIAL. IV PRN (22:45)
[2016-10-10] MEDS ORDERED: DEXTROSE 50% 25 GM / 50ML DISP.SYRIN. IV ONE (23:00)
[2016-10-10] MEDS ORDERED: CALCIUM GLUCONATE 1,000 MG in IV NORMAL SALINE 100ML 100 ML IV ONE (23:00)
[2016-10-10] MEDS ORDERED: INSULIN REGULAR 100 UNIT/ML 10ML VIAL. IV ONE (23:00)
[2016-10-10] MEDS ORDERED: VANCOMYCIN 2 GM in IV NORMAL SALINE 500ML BAG 500 ML IV ONE (23:00)
[2016-10-10] MEDS ORDERED: SODIUM BICARB ADULT 8.4% 50 MEQ/50 ML DISP.SYRIN. IV ONE (23:00)
[2016-10-10 23:12] LABS: BASO # 0.1 x10^3/uL (0.0-0.2); BASO % 1 % (0-3); EOS % 2 % (0-3); HEMATOCRIT 33.9 % (36.0-47.0); LYMPH # 1.2 x10^3/uL (1.0-4.8); LYMPH % 9 % (24-48); MEAN CORPUSCULAR HEMOGLOBIN 31 pg (25-35); MEAN CORPUSCULAR HGB CONC 32 g/dL (31-37); MEAN CORPUSCULAR VOLUME 96 fL (79-100); MONO % 6 % (0-9); NEUT % 82 % (31-73); PLATELET COUNT 160 x10^3/uL (140-400); RED BLOOD COUNT 3.55 x10^6/uL (3.50-5.40); RED CELL DISTRIBUTION WIDTH 19.2 % (11.5-14.5); WHITE BLOOD COUNT 12.9 x10^3/uL (4.0-11.0)
[2016-10-10 23:26] LABS: CALCIUM 8.9 mg/dL (8.5-10.1); GFR 16.2; POTASSIUM 5.3 mmol/L (3.5-5.1)
[2016-10-11] VITALS (13 sets, daily range): BP systolic 84–146; BP diastolic 44–78
--- NOTE | 2016-10-11 00:56 | PHYS DOC ---
Past Medical History Past Medical History: CHF, COPD, Depression, Diabetes-Type II, Hypertension, Renal Disease, Renal Failure Past Surgical History: Other Additional Past Surgical Histo: R. kidney removed Alcohol Use: None Drug Use: None Adult General Chief Complaint Chief Complaint: DIALYSIS PROBLEM HPI HPI Patient is a 56 year old female who presents here today secondary to feel like she has an infection to her right groin. Patient has a history significant for CHF, end-stage renal disease, currently on hemodialysis for approximately one year secondary to sepsis that occurred back in April 2016. Patient history of hypertension diabetes patient with a pacemaker placed. Patient reports over the last 24 hours she's had shakes chills. Patient denies any fevers. Patient has a nausea vomiting or diarrhea. Patient reports that they've had a difficult time getting dialysis access on her. Family reports that on September 24 they tried getting a vein graft in her right upper thigh however after opening up her right upper thigh they found that there was no appropriate they noted that they can use for graft. They report that they sutured of her skin and over the last several days the patient reported that she's noticed increasing redness swelling and pain to her right groin area. Patient is concerned that there is infection there currently. Patient reports her chute feeder is Dr. Love. And her primary care physician is Dr. Dianelys molina. Review of systems: Constitutional: Denies fever Eyes: Denies change in visual acuity, redness, or eye pain HENT: Denies nasal congestion or sore throat All other review systems are negative except as documented in the history of present illness portion. Physical exam: Constitutional: Cachectic appearing no acute distress, non-toxic appearance. HENT: Normocephalic, atraumatic, bilateral external ears normal, oropharynx moist, no oral exudates, nose normal. Eyes: PERRLA, EOMI, conjunctiva normal, no discharge. Neck: Normal range of motion, no tenderness, supple, no stridor Cardiovascular:Heart rate regular rhythm Lungs & Thorax: Bilateral breath sounds clear to auscultation Abdomen: Soft nondistended no rebound or guarding no tenderness at McBurney's point, Salcedo's sign, patient has normal active bowel sounds, she has mild diffuse tenderness to palpation. Skin: Warm, dry, no erythema, no rash. Back: No tenderness, no CVA tenderness. Patient has pain to his lower back or reports this is chronic. Patient has no new tenderness Extremities: No tenderness, no cyanosis, no clubbing, ROM intact, no edema. Neurologic: Alert and oriented X 3, normal motor function, normal sensory function, no focal deficits noted. Psychologic: Affect normal, judgement normal, mood normal. Patient's physical exam was significant for her right groin having at the incision site a fullness tenderness and warmth and appearance of fluctuance. Patient's suture site is clean and dry without any erythema. Patient has a right upper arm fistula which has a good bruit and thrill. Patient's abdomen was soft nontender no rebound or guarding. Lungs were clear without any wheezing rales or rhonchi. Heart was regular rate and rhythm. Patient's ER course was significant for an ultrasound that was obtained of her right groin which revealed likely abscess versus liquefied hematoma. Given the warmth tenderness and her sense of having a fever/chills I believe that this is more than likely an abscess although hematoma still possibility. Patient's lactic acid was elevated however patient does not appear to be septic otherwise. Patient was started on Vanco Rocephin for broad-spectrum antibiotic coverage of the abscess. Patient will be admitted and will have surgery to assist with evaluation of this abscess. Patient's potassium was elevated as well. Patient was given D50, calcium, insulin, bicarbonate. Patient's hemoglobin appear to be low. We have repeated labs on the patient after initial treatment and ordered a type crossed. I have been called by the lab and they were concerned that the initial blood tests that were drawn might of been a lab error secondary to dilution. Patient's repeat hemoglobin was greater than 10. This was prior to any blood transfusion. 1. Hyperkalemia. Patient with a history significant for end-stage renal disease. Patient has not missed any dialysis. Patient is scheduled for dialysis tomorrow. Patient will be admitted we will consult Dr. Love. 2. Elevated lactic acid with possible abscess to her right groin. Patient has been started on broad-spectrum antibiotics, cultures been sent, we will have surgery assist with evaluation. Current Medications Current Medications Current Medications Medications (Trade) Dose Ordered Sig/Susan Start Time Stop Time Status Last Admin Dose Admin Hydromorphone HCl (Dilaudid) 1 mg 1X ONCE 10/10/16 20:00 10/10/16 20:01 DC 10/10/16 20:30 1 MG Ondansetron HCl (Zofran) 4 mg 1X ONCE 10/10/16 20:00 10/10/16 20:01 DC 10/10/16 20:30 4 MG Allergies Allergies Allergies Coded Allergies Type Severity Reaction Last Updated Verified sulfamethoxazole Allergy Severe Hives 03/18/13 Yes trimethoprim Allergy Severe Hives 03/18/13 Yes venom-honey bee Allergy Severe Anaphylaxis 03/18/13 Yes I S O L A T I O N *CONTACT* Allergy Unknown 04/15/16 Yes Current Patient Data Vital Signs Vital Signs Date Time Temp Pulse Resp B/P (MAP) Pulse Ox O2 Delivery O2 Flow Rate FiO2 10/10/16 22:30 122 23 132/67 (88) 97 Nasal Cannula 2.0 10/10/16 19:25 98.4 98.4 Lab Values Laboratory Tests Test 10/10/16 20:30 White Blood Count 7.3 x10^3/uL (4.0-11.0) Red Blood Count 2.05 x10^6/uL (3.50-5.40) L Hemoglobin 6.7 g/dL (12.0-15.5) *L Hematocrit 19.5 % (36.0-47.0) *L Mean Corpuscular Volume 95 fL (79-100) Mean Corpuscular Hemoglobin 33 pg (25-35) Mean Corpuscular Hemoglobin Concent 34 g/dL (31-37) Red Cell Distribution Width 19.1 % (11.5-14.5) H Platelet Count 89 x10^3/uL (140-400) L Neutrophils (%) (Auto) 84 % (31-73) H Lymphocytes (%) (Auto) 8 % (24-48) L Monocytes (%) (Auto) 5 % (0-9) Eosinophils (%) (Auto) 2 % (0-3) Basophils (%) (Auto) 0 % (0-3) Neutrophils # (Auto) 6.1 x10^3uL (1.8-7.7) Lymphocytes # (Auto) 0.6 x10^3/uL (1.0-4.8) L Monocytes # (Auto) 0.4 x10^3/uL (0.0-1.1) Eosinophils # (Auto) 0.2 x10^3/uL (0.0-0.7) Basophils # (Auto) 0.0 x10^3/uL (0.0-0.2) Sodium Level 137 mmol/L (136-145) Potassium Level 5.7 mmol/L (3.5-5.1) H Chloride Level 99 mmol/L (98-107) Carbon Dioxide Level 31 mmol/L (21-32) Anion Gap 7 (6-14) Blood Urea Nitrogen 36 mg/dL (7-20) H Creatinine 2.9 mg/dL (0.6-1.0) H Estimated GFR (Cockcroft-Gault) 16.8 BUN/Creatinine Ratio 12 (6-20) Glucose Level 325 mg/dL (70-99) H Lactic Acid Level 2.5 mmol/L (0.4-2.0) H Calcium Level 8.5 mg/dL (8.5-10.1) Total Bilirubin 0.4 mg/dL (0.2-1.0) Aspartate Amino Transferase (AST) 17 U/L (15-37) Alanine Aminotransferase (ALT) 22 U/L (14-59) Alkaline Phosphatase 111 U/L (46-116) Total Protein 7.9 g/dL (6.4-8.2) Albumin 3.2 g/dL (3.4-5.0) L Albumin/Globulin Ratio 0.7 (1.0-1.7) L Laboratory Tests 10/10/16 20:30 Laboratory Tests 10/10/16 20:30 EKG EKG [] Normal sinus rhythm with nonspecific ST-T wave abnormalities. No hives of hyperkalemia on EKG. Radiology/Procedures Radiology/Procedures [] Laboratory Tests Test 10/10/16 20:30 White Blood Count 7.3 x10^3/uL Red Blood Count 2.05 x10^6/uL Hemoglobin 6.7 g/dL Hematocrit 19.5 % Mean Corpuscular Volume 95 fL Mean Corpuscular Hemoglobin 33 pg Mean Corpuscular Hemoglobin Concent 34 g/dL Red Cell Distribution Width 19.1 % Platelet Count 89 x10^3/uL Neutrophils (%) (Auto) 84 % Lymphocytes (%) (Auto) 8 % Monocytes (%) (Auto) 5 % Eosinophils (%) (Auto) 2 % Basophils (%) (Auto) 0 % Neutrophils # (Auto) 6.1 x10^3uL Lymphocytes # (Auto) 0.6 x10^3/uL Monocytes # (Auto) 0.4 x10^3/uL Eosinophils # (Auto) 0.2 x10^3/uL Basophils # (Auto) 0.0 x10^3/uL Sodium Level 137 mmol/L Potassium Level 5.7 mmol/L Chloride Level 99 mmol/L Carbon Dioxide Level 31 mmol/L Anion Gap 7 Blood Urea Nitrogen 36 mg/dL Creatinine 2.9 mg/dL Estimated GFR (Cockcroft-Gault) 16.8 BUN/Creatinine Ratio 12 Glucose Level 325 mg/dL Lactic Acid Level 2.5 mmol/L Calcium Level 8.5 mg/dL Total Bilirubin 0.4 mg/dL Aspartate Amino Transf (AST/SGOT) 17 U/L Alanine Aminotransferase (ALT/SGPT) 22 U/L Alkaline Phosphatase 111 U/L Total Protein 7.9 g/dL Albumin 3.2 g/dL Albumin/Globulin Ratio 0.7 Current Medications Medications (Trade) Dose Ordered Sig/Susan Route PRN Reason Start Time Stop Time Status Last Admin Dose Admin Hydromorphone HCl (Dilaudid) 1 mg 1X ONCE IV 10/10/16 20:00 10/10/16 20:01 DC 10/10/16 20:30 1 MG Ondansetron HCl (Zofran) 4 mg 1X ONCE IV 10/10/16 20:00 10/10/16 20:01 DC 10/10/16 20:30 4 MG Course & Med Decision Making Course & Med Decision Making Pertinent Labs and Imaging studies reviewed. (See chart for details) [] Dragon Disclaimer Dragon Disclaimer This electronic medical record was generated, in whole or in part, using a voice recognition dictation system. Departure Departure Impression: Primary Impression: Chronic renal failure Additional Impressions: Hyperkalemia Sepsis Abscess of right groin Disposition: ADMITTED INPATIENT Admitting Physician: Melinda Sparrow Condition: GUARDED Referrals: DIANELYS AU MD (PCP) Problem Qualifiers RUTHANN RODRIGUEZ MD Oct 11, 2016 00:56
[2016-10-11] MEDS: VANCOMYCIN PER PHARMACY MC PRN (01:40)
[2016-10-11] MEDS ORDERED: GABA-587 PO (02:22)
[2016-10-11] MEDS ORDERED: CARV6.252 PO (02:22)
[2016-10-11] MEDS ORDERED: SEVE800T9 PO (02:22)
[2016-10-11] MEDS ORDERED: ASPI325T8 PO (02:22)
[2016-10-11] MEDS ORDERED: HYDR-2762 PO (02:22)
[2016-10-11] MEDS ORDERED: FLUO20CA8 PO (02:32)
[2016-10-11] MEDS ORDERED: TAMS0.4C2 PO (02:32)
[2016-10-11] MEDS: ACETAMINOPHEN 325 MG TABLET. PO PRN ×2 (04:02→19:09)
--- NOTE | 2016-10-11 05:50 | EKG ---
[facility] [address] [place] [address] Test Date: 2016-10-10 Test Time: 22:44:15 Pat Name: CHARLIE YBARRA Department: Room: Gender: F Compound [employer]er: : [id number] Requested By: RUTHANN RODRIGUEZ Order Number: [id number] Reading MD: Measurements Intervals [place] Rate: 120 P: 38 [place]: 114 QRS: 20 QRSD: 96 T: 64 QT: 320 QTc: 457 Interpretive Statements SINUS TACHYCARDIA INDETERMINATE AXIS LOW LIMB LEAD VOLTAGE QRS(T) CONTOUR ABNORMALITY CANNOT RULE OUT ANTEROSEPTAL MYOCARDIAL DAMAGE ST & T ABNORMALITY, CONSIDER ANTEROLATERAL ISCHEMIA OR LEFT VENTRICULAR STRAIN RI6.01 Unconfirmed report Compared to ECG 07/01/2016 21:32:49 Indeterminate axis now present Possible ischemia now present Sinus rhythm no longer present T-wave abnormality still present
[2016-10-11] MEDS ORDERED: ONDANSETRON PF 4 MG/2 ML VIAL. IV PRN (09:48)
[2016-10-11] MEDS: FLUoxetine HCL 20 MG CAPSULE PO SCH (10:00)
[2016-10-11] MEDS: TAMSULOSIN 0.4 MG CAP.ER.24H. PO SCH (10:00)
[2016-10-11] MEDS: BUMETANIDE 1 MG TABLET. PO SCH (10:00)
[2016-10-11] MEDS ORDERED: DEXTROSE 50% 25 GM / 50ML DISP.SYRIN. IV PRN (10:00)
[2016-10-11] MEDS: CARVEDILOL 6.25 MG TABLET. PO SCH ×2 (10:00→16:40)
[2016-10-11] MEDS: HYDROcodone/APAP 7.5/325MG 1 TAB TABLET PO PRN ×2 (10:12→23:33)
--- NOTE | 2016-10-11 10:12 | PDOC1 ---
History and Physical Date of Admission Date of Admission DATE: 10/11/16 TIME: 10:11 Identification/Chief Complaint Chief Complaint R groin abscess, pain, swelling Problems: Source Source: Caregiver, Chart review History of Present Illness History of Present Illness 56 y.o F[place], poor historian, no one at bedside, last time was here 06/2016 for the ff: acute metabolic encephalopathy, UTI, ESRD DM2, decent control morbid obesity, BMI 45 w/ mod malnutrition weakness and debility hypoxia, NOS, ESRD, obesity, anemia of CKD NOw, admitted bec of R groin abscess proven on US at ER. Issues started when vein graft was being accessed from this site for her HD fistula site (having issues with AV fistula). Had some fevers and chills at home, LAbs show WBC 12, HGb 11, platelets 160, sinus tachy, IN severe pain in bed, unable to participate with my H & P. K 5.3 Creat 2.9. HD patient, Rest of details cant be gathered. R groin PE very remarkable for bulging, erythema, warmth and very tender to mild touch Past Medical History Cardiovascular: CAD, CHF, HTN, Hyperlipidemia Pulmonary: COPD, Other CENTRAL NERVOUS SYSTEM: Periperal neuropathy GI: GERD, Other Hepatobiliary: Other Psych: Depression Renal/: Acute renal failure, UTI Endocrine: Diabetes Past Surgical History Past Surgical History: Pacemaker, Cataract Removal, Other Family History Family History: Diabetes, Hypertension Social History Smoke: No ALCOHOL: rare Drugs: None Current Medications Current Medications Current Medications Hydromorphone HCl (Dilaudid) 1 mg 1X ONCE IV Last administered on 10/10/16 20 :30; Start 10/10/16 at 20:00; Stop 10/10/16 at 20:01; Status DC Ondansetron HCl (Zofran) 4 mg 1X ONCE IV Last administered on 10/10/16 20:30 ; Start 10/10/16 at 20:00; Stop 10/10/16 at 20:01; Status DC Vancomycin HCl (Vanco Per Pharmacy) 1 each PRN DAILY PRN MC SEE COMMENTS Last administered on 10/11/16 01:40; Start 10/11/16 at 00:00 Ceftriaxone Sodium 50 ml @ 100 mls/hr 1X ONCE IV Last administered on 02:38; Start 10/10/16 at 23:00; Stop 10/10/16 at 23:29; Status DC Calcium Gluconate 1000 mg/Sodium Chloride 110 ml @ 220 mls/hr 1X ONCE IV Last administered on 10/10/16 23:30; Start 10/10/16 at 23:00; Stop 10/10/16 at 23:29; Status DC Insulin Human Regular (NovoLIN R VIAL) 10 unit 1X ONCE IV Last administered on 10/11/16 00:41; Start 10/10/16 at 23:00; Stop 10/10/16 at 23:01; Status DC Dextrose (Dextrose 50%-Water Syringe) 25 gm 1X ONCE IV Last administered on 00:37; Start 10/10/16 at 23:00; Stop 10/10/16 at 23:01; Status DC Sodium Bicarbonate 50 meq 1X ONCE IV Last administered on 10/11/16 00:34; Start 10/10/16 at 23:00; Stop 10/10/16 at 23:01; Status DC Ondansetron HCl (Zofran) 4 mg PRN Q8HRS PRN IV NAUSEA/VOMITING; Start 10/10/16 at 22:45; Stop 10/11/16 at 09:49; Status DC Morphine Sulfate 4 mg PRN Q2HR PRN IV PAIN; Start 10/10/16 at 22:45; Stop 10/11 at 22:44 Acetaminophen (Tylenol) 650 mg PRN Q4HRS PRN PO FEVER Last administered on 10/11 04:02; Start 10/10/16 at 22:45; Stop 10/11/16 at 22:44 Vancomycin HCl 2 gm/Sodium Chloride 500 ml @ 250 mls/hr 1X ONCE IV Last administered on 10/11/16 00:44; Start 10/10/16 at 23:00; Stop 10/11/16 at 00:59 ; Status DC Vancomycin HCl 1.5 gm/Sodium Chloride 500 ml @ 250 mls/hr Q48H IV ; Start 10/13 at 01:00 Vancomycin HCl 1 each 1X ONCE MC ; Start 10/15/16 at 00:30; Stop 10/15/16 at 00 :31 Ondansetron HCl (Zofran) 4 mg PRN Q6HRS PRN IV NAUSEA/VOMITING; Start 10/11/16 at 09:48; Stop 10/12/16 at 09:47 Carvedilol (Coreg) 6.25 mg BIDWMEALS PO ; Start 10/11/16 at 10:00 Fluoxetine HCl (PROzac) 20 mg DAILY PO ; Start 10/11/16 at 10:00 Acetaminophen/ Hydrocodone Bitart (Lortab 7.5/325) 1 tab PRN Q4HRS PRN PO PAIN ; Start 10/11/16 at 10:00 Sevelamer Carbonate (Renvela) 800 mg TIDWMEALS PO ; Start 10/11/16 at 12:00 Tamsulosin HCl (Flomax) 0.4 mg DAILY PO ; Start 10/11/16 at 10:00 Bumetanide (Bumex) 1 mg DAILY PO ; Start 10/11/16 at 10:00 Gabapentin (Neurontin) 400 mg TID PO ; Start 10/11/16 at 10:15 Glimepiride (Amaryl) 4 mg DAILYWBKFT PO ; Start 10/12/16 at 08:00 Non-Formulary Medication 1 each TID TP ; Start 10/11/16 at 14:00 Insulin Aspart (NovoLOG) 0-9 UNITS TIDWMEALS SQ ; Start 10/11/16 at 12:00 Dextrose (Dextrose 50%-Water Syringe) 12.5 gm PRN Q15MIN PRN IV SEE COMMENTS; Start 10/11/16 at 10:00 Active Scripts Active Reported Tamsulosin Hcl 0.4 Mg Cap.er.24h 0.4 Mg PO DAILY Fluoxetine Hcl 20 Mg Capsule 20 Mg PO DAILY Aspirin 325 Mg Tablet 325 Mg PO DAILY Hydrocodone-Apap 7.5-325 (Hydrocodone Bit/Acetaminophen) 1 Each Tablet 1 Tab PO PRN Q4HRS PRN Renvela (Sevelamer Carbonate) 800 Mg Tablet 800 Mg PO TIDWMEALS Gabapentin 400 Mg Capsule 400 Mg PO TID Carvedilol 6.25 Mg Tablet 6.25 Mg PO DAILY Nystatin 1 Each Powder.ea. 1 Each PO TID Bumetanide 2 Mg Tablet 1 Tab PO DAILY Glimepiride 4 Mg Tablet 4 Mg PO DAILY Acetaminophen 325 Mg Capsule 650 Mg PO Q6HRS PRN Allergies Allergies: Coded Allergies: sulfamethoxazole (Verified Allergy, Severe, Hives, 03/18/13) trimethoprim (Verified Allergy, Severe, Hives, 03/18/13) venom-honey bee (Verified Allergy, Severe, Anaphylaxis, 03/18/13) I S O L A T I O N *CONTACT* (Verified Allergy, Unknown, 04/15/16) mrsa ROS Review of System unable to gather Physical Exam General: moderate distress, Other (from pain) HEENT: Atraumatic, PERRLA, EOMI Lungs: Clear to auscultation, Normal air movement Heart: S1S2, RRR, no gallops, no murmurs, other (sinus tachy) Cardiovascular: S1, S2 Breasts: Normal, Rt breast nml w/o mass, Lt breast nml w/o mass, Nipples normal Abdomen: Soft, No tenderness, No hepatosplenomegaly PELVIC: Other (R groin bulging, erythema, tender to light touch) Extremities: No clubbing, No cyanosis, No edema, Normal pulses, No tenderness/ swelling Skin: No rashes, No breakdown, No significant lesion Neuro: Normal gait, Normal speech, Strength at 5/5 X4 ext, Normal tone, Sensation intact, Cranial nerves 3-12 NL, Reflexes 2+ Psych/Mental Status: Mental status NL Vitals Vitals Vital Signs Date Time Temp Pulse Resp B/P (MAP) Pulse Ox O2 Delivery O2 Flow Rate FiO2 10/11/16 07:00 98.6 111 18 123/73 (90) 99 Nasal Cannula 2.0 98.6 Labs Labs Laboratory Tests Test 10/10/16 20:30 10/10/16 23:00 10/11/16 00:40 10/11/16 07:37 White Blood Count 7.3 x10^3/uL (4.0-11.0) 12.9 x10^3/uL (4.0-11.0) Red Blood Count 2.05 x10^6/uL (3.50-5.40) 3.55 x10^6/uL (3.50-5.40) Hemoglobin 6.7 g/dL (12.0-15.5) 11.0 g/dL (12.0-15.5) Hematocrit 19.5 % (36.0-47.0) 33.9 % (36.0-47.0) Mean Corpuscular Volume 95 fL (79-100) 96 fL (79-100) Mean Corpuscular Hemoglobin 33 pg (25-35) 31 pg (25-35) Mean Corpuscular Hemoglobin Concent 34 g/dL (31-37) 32 g/dL (31-37) Red Cell Distribution Width 19.1 % (11.5-14.5) 19.2 % (11.5-14.5) Platelet Count 89 x10^3/uL (140-400) 160 x10^3/uL (140-400) Neutrophils (%) (Auto) 84 % (31-73) 82 % (31-73) Lymphocytes (%) (Auto) 8 % (24-48) 9 % (24-48) Monocytes (%) (Auto) 5 % (0-9) 6 % (0-9) Eosinophils (%) (Auto) 2 % (0-3) 2 % (0-3) Basophils (%) (Auto) 0 % (0-3) 1 % (0-3) Neutrophils # (Auto) 6.1 x10^3uL (1.8-7.7) 10.6 x10^3uL (1.8-7.7) Lymphocytes # (Auto) 0.6 x10^3/uL (1.0-4.8) 1.2 x10^3/uL (1.0-4.8) Monocytes # (Auto) 0.4 x10^3/uL (0.0-1.1) 0.7 x10^3/uL (0.0-1.1) Eosinophils # (Auto) 0.2 x10^3/uL (0.0-0.7) 0.2 x10^3/uL (0.0-0.7) Basophils # (Auto) 0.0 x10^3/uL (0.0-0.2) 0.1 x10^3/uL (0.0-0.2) Sodium Level 137 mmol/L (136-145) 136 mmol/L (136-145) Potassium Level 5.7 mmol/L (3.5-5.1) 5.3 mmol/L (3.5-5.1) Chloride Level 99 mmol/L (98-107) 98 mmol/L (98-107) Carbon Dioxide Level 31 mmol/L (21-32) 31 mmol/L (21-32) Anion Gap 7 (6-14) 7 (6-14) Blood Urea Nitrogen 36 mg/dL (7-20) 39 mg/dL (7-20) Creatinine 2.9 mg/dL (0.6-1.0) 3.0 mg/dL (0.6-1.0) Estimated GFR (Cockcroft-Gault) 16.8 16.2 BUN/Creatinine Ratio 12 (6-20) Glucose Level 325 mg/dL (70-99) 276 mg/dL (70-99) Lactic Acid Level 2.5 mmol/L (0.4-2.0) 1.3 mmol/L (0.4-2.0) Calcium Level 8.5 mg/dL (8.5-10.1) 8.9 mg/dL (8.5-10.1) Total Bilirubin 0.4 mg/dL (0.2-1.0) Aspartate Amino Transf (AST/SGOT) 17 U/L (15-37) Alanine Aminotransferase (ALT/SGPT) 22 U/L (14-59) Alkaline Phosphatase 111 U/L (46-116) Total Protein 7.9 g/dL (6.4-8.2) Albumin 3.2 g/dL (3.4-5.0) Albumin/Globulin Ratio 0.7 (1.0-1.7) Glucose (Fingerstick) 217 mg/dL (70-99) Laboratory Tests Test 10/10/16 20:30 10/10/16 23:00 10/11/16 00:40 10/11/16 07:37 White Blood Count 7.3 x10^3/uL (4.0-11.0) 12.9 x10^3/uL (4.0-11.0) Red Blood Count 2.05 x10^6/uL (3.50-5.40) 3.55 x10^6/uL (3.50-5.40) Hemoglobin 6.7 g/dL (12.0-15.5) 11.0 g/dL (12.0-15.5) Hematocrit 19.5 % (36.0-47.0) 33.9 % (36.0-47.0) Mean Corpuscular Volume 95 fL (79-100) 96 fL (79-100) Mean Corpuscular Hemoglobin 33 pg (25-35) 31 pg (25-35) Mean Corpuscular Hemoglobin Concent 34 g/dL (31-37) 32 g/dL (31-37) Red Cell Distribution Width 19.1 % (11.5-14.5) 19.2 % (11.5-14.5) Platelet Count 89 x10^3/uL (140-400) 160 x10^3/uL (140-400) Neutrophils (%) (Auto) 84 % (31-73) 82 % (31-73) Lymphocytes (%) (Auto) 8 % (24-48) 9 % (24-48) Monocytes (%) (Auto) 5 % (0-9) 6 % (0-9) Eosinophils (%) (Auto) 2 % (0-3) 2 % (0-3) Basophils (%) (Auto) 0 % (0-3) 1 % (0-3) Neutrophils # (Auto) 6.1 x10^3uL (1.8-7.7) 10.6 x10^3uL (1.8-7.7) Lymphocytes # (Auto) 0.6 x10^3/uL (1.0-4.8) 1.2 x10^3/uL (1.0-4.8) Monocytes # (Auto) 0.4 x10^3/uL (0.0-1.1) 0.7 x10^3/uL (0.0-1.1) Eosinophils # (Auto) 0.2 x10^3/uL (0.0-0.7) 0.2 x10^3/uL (0.0-0.7) Basophils # (Auto) 0.0 x10^3/uL (0.0-0.2) 0.1 x10^3/uL (0.0-0.2) Sodium Level 137 mmol/L (136-145) 136 mmol/L (136-145) Potassium Level 5.7 mmol/L (3.5-5.1) 5.3 mmol/L (3.5-5.1) Chloride Level 99 mmol/L (98-107) 98 mmol/L (98-107) Carbon Dioxide Level 31 mmol/L (21-32) 31 mmol/L (21-32) Anion Gap 7 (6-14) 7 (6-14) Blood Urea Nitrogen 36 mg/dL (7-20) 39 mg/dL (7-20) Creatinine 2.9 mg/dL (0.6-1.0) 3.0 mg/dL (0.6-1.0) Estimated GFR (Cockcroft-Gault) 16.8 16.2 BUN/Creatinine Ratio 12 (6-20) Glucose Level 325 mg/dL (70-99) 276 mg/dL (70-99) Lactic Acid Level 2.5 mmol/L (0.4-2.0) 1.3 mmol/L (0.4-2.0) Calcium Level 8.5 mg/dL (8.5-10.1) 8.9 mg/dL (8.5-10.1) Total Bilirubin 0.4 mg/dL (0.2-1.0) Aspartate Amino Transf (AST/SGOT) 17 U/L (15-37) Alanine Aminotransferase (ALT/SGPT) 22 U/L (14-59) Alkaline Phosphatase 111 U/L (46-116) Total Protein 7.9 g/dL (6.4-8.2) Albumin 3.2 g/dL (3.4-5.0) Albumin/Globulin Ratio 0.7 (1.0-1.7) Glucose (Fingerstick) 217 mg/dL (70-99) VTE Prophylaxis Ordered VTE Prophylaxis Devices: Yes VTE Pharmacological Prophylaxi: Yes Assessment/Plan Assessment/Plan 1. R groin abscess 2. SIRS POA, no sepsis or target organ dysfcn yet 3. acute metabolic encephalopathy, ESRD on HD DM2, morbid obesity, BMI 45 w/ mod malnutrition weakness and debility anemia of CKD\ PLAn: NPO for now, hopeful for I and D soon IV abx ID consult GS consult Renal consult for HD LAbs again alycia PT/.OT once more able Resume home meds SSI Follow BC IVF Dw RN MILVIA CARRASCO MD Oct 11, 2016 10:12
[2016-10-11] MEDS: GABAPENTIN 400 MG CAPSULE. PO SCH ×3 (10:15→21:27)
[2016-10-11 11:04] LABS: BASO # 0.1 x10^3/uL (0.0-0.2); BASO % 1 % (0-3); EOS % 1 % (0-3); HEMATOCRIT 31.4 % (36.0-47.0); HEMOGLOBIN 10.3 g/dL (12.0-15.5); LYMPH # 0.9 x10^3/uL (1.0-4.8); LYMPH % 6 % (24-48); MEAN CORPUSCULAR HEMOGLOBIN 32 pg (25-35); MEAN CORPUSCULAR HGB CONC 33 g/dL (31-37); MEAN CORPUSCULAR VOLUME 96 fL (79-100); MONO % 5 % (0-9); NEUT % 88 % (31-73); PLATELET COUNT 127 x10^3/uL (140-400); RED BLOOD COUNT 3.26 x10^6/uL (3.50-5.40); WHITE BLOOD COUNT 16.2 x10^3/uL (4.0-11.0)
[2016-10-11] MEDS ORDERED: IV NORMAL SALINE 1000ML BAG 1,000 ML IV PRN ×2 (11:56)
[2016-10-11] MEDS: SEVELAMER CARBONATE 800 MG TABLET. PO SCH ×2 (12:00→17:00)
[2016-10-11] MEDS ORDERED: ALBUMIN HUMAN 25% 200 ML IV PRN (12:00)
[2016-10-11] MEDS ORDERED: diphenhydrAMINE 50 MG/ML VIAL IV PRN (12:00)
[2016-10-11] MEDS ORDERED: DIALYSIS PATIENT. MC PRN ×2 (12:00)
[2016-10-11] MEDS ORDERED: ACETAMINOPHEN 500 MG TABLET PO PRN (12:00)
[2016-10-11] MEDS ORDERED: 0.9 % SODIUM CHLORIDE 10 ML DISP.SYRIN. IV PRN ×2 (12:00)
[2016-10-11] MEDS: INSULIN ASPART 300 UNITS/3 ML INSULN.PEN SQ SCH ×2 (12:00→17:00)
--- NOTE | 2016-10-11 12:03 | PDOC2 ---
CONSULT Date of Consult Date of Consult DATE: 10/11/16 TIME: 11:58 Reason for Consult Reason for Consult: ESRD AND HIGH K Referring Physician Referring Physician: DANILO Identification/Chief Complaint Chief Complaint RIGHT GROIN PAIN AND CONFUSION Problems: Source Source: Chart review History of Present Illness Reason for Visit: THIS IS A 56 YR OLD ADMITTED WITH RIGHT GROIN PAIN AND THEN DIAGNOSED WITH AN ABSCESS IN THIS AREA. SHE IS ALSO CONFUSED. LABS SHOWED A HIGH K, ANEMIA, LEUCOCYTOSIS AND WAS C/W HER ESRD STATUS. SHE IS VERY FEBRILE AND NOT GIVING MUCH HX. SHE HAS ESRD DUE TO HTN AND DM II Past Medical History Cardiovascular: CAD, CHF, HTN, Hyperlipidemia Pulmonary: COPD, Other CENTRAL NERVOUS SYSTEM: Periperal neuropathy GI: GERD, Other Heme/Onc: Anemia NOS Hepatobiliary: Other Psych: Depression Renal/: Chronic renal failure, UTI Endocrine: Diabetes, Hyperparathyroidism Past Surgical History Past Surgical History: Pacemaker, Cataract Removal, Other Family History Family History: Diabetes, Hypertension Social History No ALCOHOL: rare Drugs: None Lives: Half-Way Current Medications Current Medications Current Medications Hydromorphone HCl (Dilaudid) 1 mg 1X ONCE IV Last administered on 10/10/16 20 :30; Start 10/10/16 at 20:00; Stop 10/10/16 at 20:01; Status DC Ondansetron HCl (Zofran) 4 mg 1X ONCE IV Last administered on 10/10/16 20:30 ; Start 10/10/16 at 20:00; Stop 10/10/16 at 20:01; Status DC Vancomycin HCl (Vanco Per Pharmacy) 1 each PRN DAILY PRN MC SEE COMMENTS Last administered on 10/11/16 01:40; Start 10/11/16 at 00:00 Ceftriaxone Sodium 50 ml @ 100 mls/hr 1X ONCE IV Last administered on 02:38; Start 10/10/16 at 23:00; Stop 10/10/16 at 23:29; Status DC Calcium Gluconate 1000 mg/Sodium Chloride 110 ml @ 220 mls/hr 1X ONCE IV Last administered on 10/10/16 23:30; Start 10/10/16 at 23:00; Stop 10/10/16 at 23:29; Status DC Insulin Human Regular (NovoLIN R VIAL) 10 unit 1X ONCE IV Last administered on 10/11/16 00:41; Start 10/10/16 at 23:00; Stop 10/10/16 at 23:01; Status DC Dextrose (Dextrose 50%-Water Syringe) 25 gm 1X ONCE IV Last administered on 00:37; Start 10/10/16 at 23:00; Stop 10/10/16 at 23:01; Status DC Sodium Bicarbonate 50 meq 1X ONCE IV Last administered on 10/11/16 00:34; Start 10/10/16 at 23:00; Stop 10/10/16 at 23:01; Status DC Ondansetron HCl (Zofran) 4 mg PRN Q8HRS PRN IV NAUSEA/VOMITING; Start 10/10/16 at 22:45; Stop 10/11/16 at 09:49; Status DC Morphine Sulfate 4 mg PRN Q2HR PRN IV PAIN; Start 10/10/16 at 22:45; Stop 10/11 at 22:44 Acetaminophen (Tylenol) 650 mg PRN Q4HRS PRN PO FEVER Last administered on 10/11 04:02; Start 10/10/16 at 22:45; Stop 10/11/16 at 22:44 Vancomycin HCl 2 gm/Sodium Chloride 500 ml @ 250 mls/hr 1X ONCE IV Last administered on 10/11/16 00:44; Start 10/10/16 at 23:00; Stop 10/11/16 at 00:59 ; Status DC Vancomycin HCl 1.5 gm/Sodium Chloride 500 ml @ 250 mls/hr Q48H IV ; Start 10/13 at 01:00 Vancomycin HCl 1 each 1X ONCE MC ; Start 10/15/16 at 00:30; Stop 10/15/16 at 00 :31 Ondansetron HCl (Zofran) 4 mg PRN Q6HRS PRN IV NAUSEA/VOMITING; Start 10/11/16 at 09:48; Stop 10/12/16 at 09:47 Carvedilol (Coreg) 6.25 mg BIDWMEALS PO ; Start 10/11/16 at 10:00 Fluoxetine HCl (PROzac) 20 mg DAILY PO ; Start 10/11/16 at 10:00 Acetaminophen/ Hydrocodone Bitart (Lortab 7.5/325) 1 tab PRN Q4HRS PRN PO PAIN Last administered on 8/12/17at 10:12; Start 10/11/16 at 10:00 Sevelamer Carbonate (Renvela) 800 mg TIDWMEALS PO ; Start 10/11/16 at 12:00 Tamsulosin HCl (Flomax) 0.4 mg DAILY PO ; Start 10/11/16 at 10:00 Bumetanide (Bumex) 1 mg DAILY PO ; Start 10/11/16 at 10:00 Gabapentin (Neurontin) 400 mg TID PO ; Start 10/11/16 at 10:15 Glimepiride (Amaryl) 4 mg DAILYWBKFT PO ; Start 10/12/16 at 08:00 Nystatin (Nystop) 1 gabrielle TID TP ; Start 10/11/16 at 14:00 Insulin Aspart (NovoLOG) 0-9 UNITS TIDWMEALS SQ ; Start 10/11/16 at 12:00 Dextrose (Dextrose 50%-Water Syringe) 12.5 gm PRN Q15MIN PRN IV SEE COMMENTS; Start 10/11/16 at 10:00 Active Scripts Active Reported Tamsulosin Hcl 0.4 Mg Cap.er.24h 0.4 Mg PO DAILY Fluoxetine Hcl 20 Mg Capsule 20 Mg PO DAILY Aspirin 325 Mg Tablet 325 Mg PO DAILY Hydrocodone-Apap 7.5-325 (Hydrocodone Bit/Acetaminophen) 1 Each Tablet 1 Tab PO PRN Q4HRS PRN Renvela (Sevelamer Carbonate) 800 Mg Tablet 800 Mg PO TIDWMEALS Gabapentin 400 Mg Capsule 400 Mg PO TID Carvedilol 6.25 Mg Tablet 6.25 Mg PO DAILY Nystatin 1 Each Powder.ea. 1 Each PO TID Bumetanide 2 Mg Tablet 1 Tab PO DAILY Glimepiride 4 Mg Tablet 4 Mg PO DAILY Acetaminophen 325 Mg Capsule 650 Mg PO Q6HRS PRN Allergies Allergies: Coded Allergies: sulfamethoxazole (Verified Allergy, Severe, Hives, 03/18/13) trimethoprim (Verified Allergy, Severe, Hives, 03/18/13) venom-honey bee (Verified Allergy, Severe, Anaphylaxis, 03/18/13) I S O L A T I O N *CONTACT* (Verified Allergy, Unknown, 04/15/16) mrsa ROS Review of System UNABLE TO PROVIDE Physical Exam General: Cooperative, mild distress HEENT: Atraumatic, PERRLA, EOMI Lungs: Clear to auscultation Heart: Regular rate, Normal S1, No murmurs Abdomen: Normal bowel sounds, Soft, No tenderness Extremities: No clubbing, No edema Neuro: Other (CONFUSED WITH NO ASYMMETRY) Psych/Mental Status: Other (CONFUSED) MUSCULOSKELETAL: Other (RIGHT GROIN ABSCESS-SOME DRAINAGE) Vitals VITALS Vital Signs Date Time Temp Pulse Resp B/P (MAP) Pulse Ox O2 Delivery O2 Flow Rate FiO2 10/11/16 10:12 99 Nasal Cannula 2.0 10/11/16 07:00 98.6 111 18 123/73 (90) 98.6 Labs Labs Laboratory Tests Test 10/10/16 20:30 10/10/16 23:00 10/11/16 00:40 10/11/16 07:37 White Blood Count 7.3 x10^3/uL (4.0-11.0) 12.9 x10^3/uL (4.0-11.0) Red Blood Count 2.05 x10^6/uL (3.50-5.40) 3.55 x10^6/uL (3.50-5.40) Hemoglobin 6.7 g/dL (12.0-15.5) 11.0 g/dL (12.0-15.5) Hematocrit 19.5 % (36.0-47.0) 33.9 % (36.0-47.0) Mean Corpuscular Volume 95 fL (79-100) 96 fL (79-100) Mean Corpuscular Hemoglobin 33 pg (25-35) 31 pg (25-35) Mean Corpuscular Hemoglobin Concent 34 g/dL (31-37) 32 g/dL (31-37) Red Cell Distribution Width 19.1 % (11.5-14.5) 19.2 % (11.5-14.5) Platelet Count 89 x10^3/uL (140-400) 160 x10^3/uL (140-400) Neutrophils (%) (Auto) 84 % (31-73) 82 % (31-73) Lymphocytes (%) (Auto) 8 % (24-48) 9 % (24-48) Monocytes (%) (Auto) 5 % (0-9) 6 % (0-9) Eosinophils (%) (Auto) 2 % (0-3) 2 % (0-3) Basophils (%) (Auto) 0 % (0-3) 1 % (0-3) Neutrophils # (Auto) 6.1 x10^3uL (1.8-7.7) 10.6 x10^3uL (1.8-7.7) Lymphocytes # (Auto) 0.6 x10^3/uL (1.0-4.8) 1.2 x10^3/uL (1.0-4.8) Monocytes # (Auto) 0.4 x10^3/uL (0.0-1.1) 0.7 x10^3/uL (0.0-1.1) Eosinophils # (Auto) 0.2 x10^3/uL (0.0-0.7) 0.2 x10^3/uL (0.0-0.7) Basophils # (Auto) 0.0 x10^3/uL (0.0-0.2) 0.1 x10^3/uL (0.0-0.2) Sodium Level 137 mmol/L (136-145) 136 mmol/L (136-145) Potassium Level 5.7 mmol/L (3.5-5.1) 5.3 mmol/L (3.5-5.1) Chloride Level 99 mmol/L (98-107) 98 mmol/L (98-107) Carbon Dioxide Level 31 mmol/L (21-32) 31 mmol/L (21-32) Anion Gap 7 (6-14) 7 (6-14) Blood Urea Nitrogen 36 mg/dL (7-20) 39 mg/dL (7-20) Creatinine 2.9 mg/dL (0.6-1.0) 3.0 mg/dL (0.6-1.0) Estimated GFR (Cockcroft-Gault) 16.8 16.2 BUN/Creatinine Ratio 12 (6-20) Glucose Level 325 mg/dL (70-99) 276 mg/dL (70-99) Lactic Acid Level 2.5 mmol/L (0.4-2.0) 1.3 mmol/L (0.4-2.0) Calcium Level 8.5 mg/dL (8.5-10.1) 8.9 mg/dL (8.5-10.1) Total Bilirubin 0.4 mg/dL (0.2-1.0) Aspartate Amino Transf (AST/SGOT) 17 U/L (15-37) Alanine Aminotransferase (ALT/SGPT) 22 U/L (14-59) Alkaline Phosphatase 111 U/L (46-116) Total Protein 7.9 g/dL (6.4-8.2) Albumin 3.2 g/dL (3.4-5.0) Albumin/Globulin Ratio 0.7 (1.0-1.7) Glucose (Fingerstick) 217 mg/dL (70-99) Test 10/11/16 10:50 White Blood Count 16.2 x10^3/uL (4.0-11.0) Red Blood Count 3.26 x10^6/uL (3.50-5.40) Hemoglobin 10.3 g/dL (12.0-15.5) Hematocrit 31.4 % (36.0-47.0) Mean Corpuscular Volume 96 fL (79-100) Mean Corpuscular Hemoglobin 32 pg (25-35) Mean Corpuscular Hemoglobin Concent 33 g/dL (31-37) Red Cell Distribution Width 19.0 % (11.5-14.5) Platelet Count 127 x10^3/uL (140-400) Neutrophils (%) (Auto) 88 % (31-73) Lymphocytes (%) (Auto) 6 % (24-48) Monocytes (%) (Auto) 5 % (0-9) Eosinophils (%) (Auto) 1 % (0-3) Basophils (%) (Auto) 1 % (0-3) Neutrophils # (Auto) 14.3 x10^3uL (1.8-7.7) Lymphocytes # (Auto) 0.9 x10^3/uL (1.0-4.8) Monocytes # (Auto) 0.8 x10^3/uL (0.0-1.1) Eosinophils # (Auto) 0.1 x10^3/uL (0.0-0.7) Basophils # (Auto) 0.1 x10^3/uL (0.0-0.2) Laboratory Tests Test 10/10/16 20:30 10/10/16 23:00 10/11/16 00:40 10/11/16 07:37 White Blood Count 7.3 x10^3/uL (4.0-11.0) 12.9 x10^3/uL (4.0-11.0) Red Blood Count 2.05 x10^6/uL (3.50-5.40) 3.55 x10^6/uL (3.50-5.40) Hemoglobin 6.7 g/dL (12.0-15.5) 11.0 g/dL (12.0-15.5) Hematocrit 19.5 % (36.0-47.0) 33.9 % (36.0-47.0) Mean Corpuscular Volume 95 fL (79-100) 96 fL (79-100) Mean Corpuscular Hemoglobin 33 pg (25-35) 31 pg (25-35) Mean Corpuscular Hemoglobin Concent 34 g/dL (31-37) 32 g/dL (31-37) Red Cell Distribution Width 19.1 % (11.5-14.5) 19.2 % (11.5-14.5) Platelet Count 89 x10^3/uL (140-400) 160 x10^3/uL (140-400) Neutrophils (%) (Auto) 84 % (31-73) 82 % (31-73) Lymphocytes (%) (Auto) 8 % (24-48) 9 % (24-48) Monocytes (%) (Auto) 5 % (0-9) 6 % (0-9) Eosinophils (%) (Auto) 2 % (0-3) 2 % (0-3) Basophils (%) (Auto) 0 % (0-3) 1 % (0-3) Neutrophils # (Auto) 6.1 x10^3uL (1.8-7.7) 10.6 x10^3uL (1.8-7.7) Lymphocytes # (Auto) 0.6 x10^3/uL (1.0-4.8) 1.2 x10^3/uL (1.0-4.8) Monocytes # (Auto) 0.4 x10^3/uL (0.0-1.1) 0.7 x10^3/uL (0.0-1.1) Eosinophils # (Auto) 0.2 x10^3/uL (0.0-0.7) 0.2 x10^3/uL (0.0-0.7) Basophils # (Auto) 0.0 x10^3/uL (0.0-0.2) 0.1 x10^3/uL (0.0-0.2) Sodium Level 137 mmol/L (136-145) 136 mmol/L (136-145) Potassium Level 5.7 mmol/L (3.5-5.1) 5.3 mmol/L (3.5-5.1) Chloride Level 99 mmol/L (98-107) 98 mmol/L (98-107) Carbon Dioxide Level 31 mmol/L (21-32) 31 mmol/L (21-32) Anion Gap 7 (6-14) 7 (6-14) Blood Urea Nitrogen 36 mg/dL (7-20) 39 mg/dL (7-20) Creatinine 2.9 mg/dL (0.6-1.0) 3.0 mg/dL (0.6-1.0) Estimated GFR (Cockcroft-Gault) 16.8 16.2 BUN/Creatinine Ratio 12 (6-20) Glucose Level 325 mg/dL (70-99) 276 mg/dL (70-99) Lactic Acid Level 2.5 mmol/L (0.4-2.0) 1.3 mmol/L (0.4-2.0) Calcium Level 8.5 mg/dL (8.5-10.1) 8.9 mg/dL (8.5-10.1) Total Bilirubin 0.4 mg/dL (0.2-1.0) Aspartate Amino Transf (AST/SGOT) 17 U/L (15-37) Alanine Aminotransferase (ALT/SGPT) 22 U/L (14-59) Alkaline Phosphatase 111 U/L (46-116) Total Protein 7.9 g/dL (6.4-8.2) Albumin 3.2 g/dL (3.4-5.0) Albumin/Globulin Ratio 0.7 (1.0-1.7) Glucose (Fingerstick) 217 mg/dL (70-99) Test 10/11/16 10:50 White Blood Count 16.2 x10^3/uL (4.0-11.0) Red Blood Count 3.26 x10^6/uL (3.50-5.40) Hemoglobin 10.3 g/dL (12.0-15.5) Hematocrit 31.4 % (36.0-47.0) Mean Corpuscular Volume 96 fL (79-100) Mean Corpuscular Hemoglobin 32 pg (25-35) Mean Corpuscular Hemoglobin Concent 33 g/dL (31-37) Red Cell Distribution Width 19.0 % (11.5-14.5) Platelet Count 127 x10^3/uL (140-400) Neutrophils (%) (Auto) 88 % (31-73) Lymphocytes (%) (Auto) 6 % (24-48) Monocytes (%) (Auto) 5 % (0-9) Eosinophils (%) (Auto) 1 % (0-3) Basophils (%) (Auto) 1 % (0-3) Neutrophils # (Auto) 14.3 x10^3uL (1.8-7.7) Lymphocytes # (Auto) 0.9 x10^3/uL (1.0-4.8) Monocytes # (Auto) 0.8 x10^3/uL (0.0-1.1) Eosinophils # (Auto) 0.1 x10^3/uL (0.0-0.7) Basophils # (Auto) 0.1 x10^3/uL (0.0-0.2) Assessment/Plan Assessment/Plan IMP GROIN ABSCESS PROB SEPSIS LEUCOCYTOSIS ANEMIA DM II HTN ESRD HYPERKALEMIA MET ENCEPHALOPATHY PLAN ARANESP BLOOD CX ANTIBIOTICS HD TODAY UF TO DW TOLERATED RITU PARSON MD Oct 11, 2016 12:03
--- NOTE | 2016-10-11 12:36 | PDOC ---
SURGICAL PROGRESS NOTE Subjective Consult received Pt with right groin abscess by US and PE recent incision in area. pt not a good historian ER notes and nursing report some possible vascular procedure in the area, but no obvious notes for this will ask vascular to evaluate. Thanks Vital Signs Vital Signs Date Time Temp Pulse Resp B/P (MAP) Pulse Ox O2 Delivery O2 Flow Rate FiO2 10/11/16 10:12 99 Nasal Cannula 2.0 10/11/16 07:00 98.6 111 18 123/73 (90) 98.6 I&O Intake and Output 10/11/16 07:00 Intake Total 660 ml Output Total 0 ml Balance 660 ml Intake IV Total 660 ml Output Urine Total 0 ml Labs Laboratory Tests Test 10/10/16 20:30 10/10/16 23:00 10/11/16 00:40 10/11/16 07:37 White Blood Count 7.3 x10^3/uL (4.0-11.0) 12.9 x10^3/uL (4.0-11.0) Red Blood Count 2.05 x10^6/uL (3.50-5.40) 3.55 x10^6/uL (3.50-5.40) Hemoglobin 6.7 g/dL (12.0-15.5) 11.0 g/dL (12.0-15.5) Hematocrit 19.5 % (36.0-47.0) 33.9 % (36.0-47.0) Mean Corpuscular Volume 95 fL (79-100) 96 fL (79-100) Mean Corpuscular Hemoglobin 33 pg (25-35) 31 pg (25-35) Mean Corpuscular Hemoglobin Concent 34 g/dL (31-37) 32 g/dL (31-37) Red Cell Distribution Width 19.1 % (11.5-14.5) 19.2 % (11.5-14.5) Platelet Count 89 x10^3/uL (140-400) 160 x10^3/uL (140-400) Neutrophils (%) (Auto) 84 % (31-73) 82 % (31-73) Lymphocytes (%) (Auto) 8 % (24-48) 9 % (24-48) Monocytes (%) (Auto) 5 % (0-9) 6 % (0-9) Eosinophils (%) (Auto) 2 % (0-3) 2 % (0-3) Basophils (%) (Auto) 0 % (0-3) 1 % (0-3) Neutrophils # (Auto) 6.1 x10^3uL (1.8-7.7) 10.6 x10^3uL (1.8-7.7) Lymphocytes # (Auto) 0.6 x10^3/uL (1.0-4.8) 1.2 x10^3/uL (1.0-4.8) Monocytes # (Auto) 0.4 x10^3/uL (0.0-1.1) 0.7 x10^3/uL (0.0-1.1) Eosinophils # (Auto) 0.2 x10^3/uL (0.0-0.7) 0.2 x10^3/uL (0.0-0.7) Basophils # (Auto) 0.0 x10^3/uL (0.0-0.2) 0.1 x10^3/uL (0.0-0.2) Sodium Level 137 mmol/L (136-145) 136 mmol/L (136-145) Potassium Level 5.7 mmol/L (3.5-5.1) 5.3 mmol/L (3.5-5.1) Chloride Level 99 mmol/L (98-107) 98 mmol/L (98-107) Carbon Dioxide Level 31 mmol/L (21-32) 31 mmol/L (21-32) Anion Gap 7 (6-14) 7 (6-14) Blood Urea Nitrogen 36 mg/dL (7-20) 39 mg/dL (7-20) Creatinine 2.9 mg/dL (0.6-1.0) 3.0 mg/dL (0.6-1.0) Estimated GFR (Cockcroft-Gault) 16.8 16.2 BUN/Creatinine Ratio 12 (6-20) Glucose Level 325 mg/dL (70-99) 276 mg/dL (70-99) Lactic Acid Level 2.5 mmol/L (0.4-2.0) 1.3 mmol/L (0.4-2.0) Calcium Level 8.5 mg/dL (8.5-10.1) 8.9 mg/dL (8.5-10.1) Total Bilirubin 0.4 mg/dL (0.2-1.0) Aspartate Amino Transf (AST/SGOT) 17 U/L (15-37) Alanine Aminotransferase (ALT/SGPT) 22 U/L (14-59) Alkaline Phosphatase 111 U/L (46-116) Total Protein 7.9 g/dL (6.4-8.2) Albumin 3.2 g/dL (3.4-5.0) Albumin/Globulin Ratio 0.7 (1.0-1.7) Glucose (Fingerstick) 217 mg/dL (70-99) Test 10/11/16 10:50 White Blood Count 16.2 x10^3/uL (4.0-11.0) Red Blood Count 3.26 x10^6/uL (3.50-5.40) Hemoglobin 10.3 g/dL (12.0-15.5) Hematocrit 31.4 % (36.0-47.0) Mean Corpuscular Volume 96 fL (79-100) Mean Corpuscular Hemoglobin 32 pg (25-35) Mean Corpuscular Hemoglobin Concent 33 g/dL (31-37) Red Cell Distribution Width 19.0 % (11.5-14.5) Platelet Count 127 x10^3/uL (140-400) Neutrophils (%) (Auto) 88 % (31-73) Lymphocytes (%) (Auto) 6 % (24-48) Monocytes (%) (Auto) 5 % (0-9) Eosinophils (%) (Auto) 1 % (0-3) Basophils (%) (Auto) 1 % (0-3) Neutrophils # (Auto) 14.3 x10^3uL (1.8-7.7) Lymphocytes # (Auto) 0.9 x10^3/uL (1.0-4.8) Monocytes # (Auto) 0.8 x10^3/uL (0.0-1.1) Eosinophils # (Auto) 0.1 x10^3/uL (0.0-0.7) Basophils # (Auto) 0.1 x10^3/uL (0.0-0.2) Laboratory Tests Test 10/10/16 20:30 10/10/16 23:00 10/11/16 00:40 10/11/16 07:37 White Blood Count 7.3 x10^3/uL (4.0-11.0) 12.9 x10^3/uL (4.0-11.0) Red Blood Count 2.05 x10^6/uL (3.50-5.40) 3.55 x10^6/uL (3.50-5.40) Hemoglobin 6.7 g/dL (12.0-15.5) 11.0 g/dL (12.0-15.5) Hematocrit 19.5 % (36.0-47.0) 33.9 % (36.0-47.0) Mean Corpuscular Volume 95 fL (79-100) 96 fL (79-100) Mean Corpuscular Hemoglobin 33 pg (25-35) 31 pg (25-35) Mean Corpuscular Hemoglobin Concent 34 g/dL (31-37) 32 g/dL (31-37) Red Cell Distribution Width 19.1 % (11.5-14.5) 19.2 % (11.5-14.5) Platelet Count 89 x10^3/uL (140-400) 160 x10^3/uL (140-400) Neutrophils (%) (Auto) 84 % (31-73) 82 % (31-73) Lymphocytes (%) (Auto) 8 % (24-48) 9 % (24-48) Monocytes (%) (Auto) 5 % (0-9) 6 % (0-9) Eosinophils (%) (Auto) 2 % (0-3) 2 % (0-3) Basophils (%) (Auto) 0 % (0-3) 1 % (0-3) Neutrophils # (Auto) 6.1 x10^3uL (1.8-7.7) 10.6 x10^3uL (1.8-7.7) Lymphocytes # (Auto) 0.6 x10^3/uL (1.0-4.8) 1.2 x10^3/uL (1.0-4.8) Monocytes # (Auto) 0.4 x10^3/uL (0.0-1.1) 0.7 x10^3/uL (0.0-1.1) Eosinophils # (Auto) 0.2 x10^3/uL (0.0-0.7) 0.2 x10^3/uL (0.0-0.7) Basophils # (Auto) 0.0 x10^3/uL (0.0-0.2) 0.1 x10^3/uL (0.0-0.2) Sodium Level 137 mmol/L (136-145) 136 mmol/L (136-145) Potassium Level 5.7 mmol/L (3.5-5.1) 5.3 mmol/L (3.5-5.1) Chloride Level 99 mmol/L (98-107) 98 mmol/L (98-107) Carbon Dioxide Level 31 mmol/L (21-32) 31 mmol/L (21-32) Anion Gap 7 (6-14) 7 (6-14) Blood Urea Nitrogen 36 mg/dL (7-20) 39 mg/dL (7-20) Creatinine 2.9 mg/dL (0.6-1.0) 3.0 mg/dL (0.6-1.0) Estimated GFR (Cockcroft-Gault) 16.8 16.2 BUN/Creatinine Ratio 12 (6-20) Glucose Level 325 mg/dL (70-99) 276 mg/dL (70-99) Lactic Acid Level 2.5 mmol/L (0.4-2.0) 1.3 mmol/L (0.4-2.0) Calcium Level 8.5 mg/dL (8.5-10.1) 8.9 mg/dL (8.5-10.1) Total Bilirubin 0.4 mg/dL (0.2-1.0) Aspartate Amino Transf (AST/SGOT) 17 U/L (15-37) Alanine Aminotransferase (ALT/SGPT) 22 U/L (14-59) Alkaline Phosphatase 111 U/L (46-116) Total Protein 7.9 g/dL (6.4-8.2) Albumin 3.2 g/dL (3.4-5.0) Albumin/Globulin Ratio 0.7 (1.0-1.7) Glucose (Fingerstick) 217 mg/dL (70-99) Test 10/11/16 10:50 White Blood Count 16.2 x10^3/uL (4.0-11.0) Red Blood Count 3.26 x10^6/uL (3.50-5.40) Hemoglobin 10.3 g/dL (12.0-15.5) Hematocrit 31.4 % (36.0-47.0) Mean Corpuscular Volume 96 fL (79-100) Mean Corpuscular Hemoglobin 32 pg (25-35) Mean Corpuscular Hemoglobin Concent 33 g/dL (31-37) Red Cell Distribution Width 19.0 % (11.5-14.5) Platelet Count 127 x10^3/uL (140-400) Neutrophils (%) (Auto) 88 % (31-73) Lymphocytes (%) (Auto) 6 % (24-48) Monocytes (%) (Auto) 5 % (0-9) Eosinophils (%) (Auto) 1 % (0-3) Basophils (%) (Auto) 1 % (0-3) Neutrophils # (Auto) 14.3 x10^3uL (1.8-7.7) Lymphocytes # (Auto) 0.9 x10^3/uL (1.0-4.8) Monocytes # (Auto) 0.8 x10^3/uL (0.0-1.1) Eosinophils # (Auto) 0.1 x10^3/uL (0.0-0.7) Basophils # (Auto) 0.1 x10^3/uL (0.0-0.2) ROGELIO COLLINS MD Oct 11, 2016 12:36
[2016-10-11 12:48] LABS: ANISOCYTOSIS SLIGHT; PLT ESTIMATE DECREASED (ADEQUATE); POLYCHROMASIA SLIGHT
[2016-10-11] MEDS ORDERED: PIP/TAZO PER PHARMACY MC PRN (13:00)
--- NOTE | 2016-10-11 13:06 | PDOC2 ---
CONSULT Date of Consult Date of Consult DATE: 10/11/16 TIME: 12:54 Reason for Consult Reason for Consult: Right groin and femoral abscess following AV access surgery at outside facility History of Present Illness Reason for Visit: This is a 56-year-old female with end-stage renal disease on hemodialysis who can provide 0% of her medical history to me today. The patient is actively running on dialysis as I examined her. I was called by the Gen. surgery team for concerns of a right femoral area abscess in the setting of a recent right femoral dialysis surgery. The surgery was done at an outside facility and I do not know what was done as I do not have access to the operative report. The patient now has encephalopathy and signs of sepsis with presumed infected right groin hematoma. Masker surgery was asked to see her in regards to this and to assist with management. Past Medical History Cardiovascular: CAD, CHF, HTN, Hyperlipidemia Pulmonary: COPD, Other CENTRAL NERVOUS SYSTEM: Periperal neuropathy GI: GERD, Other Heme/Onc: Anemia NOS Hepatobiliary: Other Psych: Depression Renal/: Chronic renal failure, UTI Endocrine: Diabetes, Hyperparathyroidism Past Surgical History Past Surgical History: Pacemaker, Cataract Removal, Other Family History Family History: Diabetes, Hypertension Social History No ALCOHOL: rare Drugs: None Lives: Prison Current Medications Current Medications Current Medications Hydromorphone HCl (Dilaudid) 1 mg 1X ONCE IV Last administered on 10/10/16 20 :30; Start 10/10/16 at 20:00; Stop 10/10/16 at 20:01; Status DC Ondansetron HCl (Zofran) 4 mg 1X ONCE IV Last administered on 10/10/16 20:30 ; Start 10/10/16 at 20:00; Stop 10/10/16 at 20:01; Status DC Vancomycin HCl (Vanco Per Pharmacy) 1 each PRN DAILY PRN MC SEE COMMENTS Last administered on 10/11/16 01:40; Start 10/11/16 at 00:00 Ceftriaxone Sodium 50 ml @ 100 mls/hr 1X ONCE IV Last administered on 02:38; Start 10/10/16 at 23:00; Stop 10/10/16 at 23:29; Status DC Calcium Gluconate 1000 mg/Sodium Chloride 110 ml @ 220 mls/hr 1X ONCE IV Last administered on 10/10/16 23:30; Start 10/10/16 at 23:00; Stop 10/10/16 at 23:29; Status DC Insulin Human Regular (NovoLIN R VIAL) 10 unit 1X ONCE IV Last administered on 10/11/16 00:41; Start 10/10/16 at 23:00; Stop 10/10/16 at 23:01; Status DC Dextrose (Dextrose 50%-Water Syringe) 25 gm 1X ONCE IV Last administered on 00:37; Start 10/10/16 at 23:00; Stop 10/10/16 at 23:01; Status DC Sodium Bicarbonate 50 meq 1X ONCE IV Last administered on 10/11/16 00:34; Start 10/10/16 at 23:00; Stop 10/10/16 at 23:01; Status DC Ondansetron HCl (Zofran) 4 mg PRN Q8HRS PRN IV NAUSEA/VOMITING; Start 10/10/16 at 22:45; Stop 10/11/16 at 09:49; Status DC Morphine Sulfate 4 mg PRN Q2HR PRN IV PAIN; Start 10/10/16 at 22:45; Stop 10/11 at 22:44 Acetaminophen (Tylenol) 650 mg PRN Q4HRS PRN PO FEVER Last administered on 10/11 04:02; Start 10/10/16 at 22:45; Stop 10/11/16 at 22:44 Vancomycin HCl 2 gm/Sodium Chloride 500 ml @ 250 mls/hr 1X ONCE IV Last administered on 10/11/16 00:44; Start 10/10/16 at 23:00; Stop 10/11/16 at 00:59 ; Status DC Vancomycin HCl 1.5 gm/Sodium Chloride 500 ml @ 250 mls/hr Q48H IV ; Start 10/13 at 01:00 Vancomycin HCl 1 each 1X ONCE MC ; Start 10/15/16 at 00:30; Stop 10/15/16 at 00 :31 Ondansetron HCl (Zofran) 4 mg PRN Q6HRS PRN IV NAUSEA/VOMITING; Start 10/11/16 at 09:48; Stop 10/12/16 at 09:47 Carvedilol (Coreg) 6.25 mg BIDWMEALS PO ; Start 10/11/16 at 10:00 Fluoxetine HCl (PROzac) 20 mg DAILY PO ; Start 10/11/16 at 10:00 Acetaminophen/ Hydrocodone Bitart (Lortab 7.5/325) 1 tab PRN Q4HRS PRN PO PAIN Last administered on 10/11/16t 10:12; Start 10/11/16 at 10:00 Sevelamer Carbonate (Renvela) 800 mg TIDWMEALS PO ; Start 10/11/16 at 12:00 Tamsulosin HCl (Flomax) 0.4 mg DAILY PO ; Start 10/11/16 at 10:00 Bumetanide (Bumex) 1 mg DAILY PO ; Start 10/11/16 at 10:00 Gabapentin (Neurontin) 400 mg TID PO ; Start 10/11/16 at 10:15 Glimepiride (Amaryl) 4 mg DAILYWBKFT PO ; Start 10/12/16 at 08:00 Nystatin (Nystop) 1 gabrielle TID TP ; Start 10/11/16 at 14:00 Insulin Aspart (NovoLOG) 0-9 UNITS TIDWMEALS SQ ; Start 10/11/16 at 12:00 Dextrose (Dextrose 50%-Water Syringe) 12.5 gm PRN Q15MIN PRN IV SEE COMMENTS; Start 10/11/16 at 10:00 Sodium Chloride 1,000 ml @ 1,000 mls/hr Q1H PRN IV hypotension; Start 10/11/16 at 11:56; Stop 10/11/16 at 17:55 Albumin Human 200 ml @ 200 mls/hr 1X PRN PRN IV Hypotension; Start 10/11/16 at 12:00; Stop 10/11/16 at 17:59 Acetaminophen (Tylenol) 500 mg 1X PRN PRN PO MILD PAIN / TEMP; Start 10/11/16 at 12:00; Stop 10/12/16 at 11:59 Diphenhydramine HCl (Benadryl) 25 mg 1X PRN PRN IV ITCHING; Start 10/11/16 at 12:00; Stop 10/12/16 at 11:59 Sodium Chloride (Normal Saline Flush) 10 ml 1X PRN PRN IV AP catheter pack; Start 10/11/16 at 12:00; Stop 10/12/16 at 11:59 Sodium Chloride (Normal Saline Flush) 10 ml 1X PRN PRN IV EVAPORATOR OPERATOR catheter pack; Start 10/11/16 at 12:00; Stop 10/12/16 at 11:59 Sodium Chloride 1,000 ml @ 400 mls/hr Q2H30M PRN IV PATENCY; Start 10/11/16 at 11:56; Stop 10/11/16 at 23:55 Info (PHARMACY MONITORING -- do not chart) 1 each PRN DAILY PRN MC SEE COMMENTS ; Start 10/11/16 at 12:00 Info (PHARMACY MONITORING -- do not chart) 1 each PRN DAILY PRN MC SEE COMMENTS ; Start 10/11/16 at 12:00 Darbepoetin Manuel (Aranesp) 60 mcg WEEKLYHS SQ ; Start 10/11/16 at 21:00 Piperacillin Sod/ Tazobactam Sod (Zosyn Per Pharmacy) 1 each PRN DAILY PRN MC SEE COMMENTS; Start 10/11/16 at 13:00; Status UNV Active Scripts Active Reported Tamsulosin Hcl 0.4 Mg Cap.er.24h 0.4 Mg PO DAILY Fluoxetine Hcl 20 Mg Capsule 20 Mg PO DAILY Aspirin 325 Mg Tablet 325 Mg PO DAILY Hydrocodone-Apap 7.5-325 (Hydrocodone Bit/Acetaminophen) 1 Each Tablet 1 Tab PO PRN Q4HRS PRN Renvela (Sevelamer Carbonate) 800 Mg Tablet 800 Mg PO TIDWMEALS Gabapentin 400 Mg Capsule 400 Mg PO TID Carvedilol 6.25 Mg Tablet 6.25 Mg PO DAILY Nystatin 1 Each Powder.ea. 1 Each PO TID Bumetanide 2 Mg Tablet 1 Tab PO DAILY Glimepiride 4 Mg Tablet 4 Mg PO DAILY Acetaminophen 325 Mg Capsule 650 Mg PO Q6HRS PRN Allergies Allergies: Coded Allergies: sulfamethoxazole (Verified Allergy, Severe, Hives, 03/18/13) trimethoprim (Verified Allergy, Severe, Hives, 03/18/13) venom-honey bee (Verified Allergy, Severe, Anaphylaxis, 03/18/13) I S O L A T I O N *CONTACT* (Verified Allergy, Unknown, 04/15/16) mrsa Physical Exam General: Other (the patient refused response to stimuli, responds to commands, but really does not answer any questions regarding her medical history) HEENT: Atraumatic, PERRLA, EOMI Lungs: Clear to auscultation, Normal air movement Heart: Other (tachycardic, S1, S2, regular rhythm) Abdomen: Soft, Other (morbid obesity, nontender, no clear mass) Extremities: Other (right femoral incision which is well-healed and approximated, large tender hematoma towards the medial aspect of the thigh which is warm to the touch, no drainage, there is no ulceration, and the skin is intact overlying this area, I cannot palpate an obvious thrill, or hemodialysis graft in this area given her morbid obesity, she has dorsalis pedis and posterior tibial Doppler signals bilaterally, her motor and sensory function is intact bilaterally as far as I can evaluate) Skin: No rashes, No breakdown Neuro: Strength at 5/5 X4 ext, Normal tone, Sensation intact Vitals VITALS Vital Signs Date Time Temp Pulse Resp B/P (MAP) Pulse Ox O2 Delivery O2 Flow Rate FiO2 10/11/16 10:12 99 Nasal Cannula 2.0 10/11/16 07:00 98.6 111 18 123/73 (90) 98.6 Labs Labs Laboratory Tests Test 10/10/16 20:30 10/10/16 23:00 10/11/16 00:40 10/11/16 07:37 White Blood Count 7.3 x10^3/uL (4.0-11.0) 12.9 x10^3/uL (4.0-11.0) Red Blood Count 2.05 x10^6/uL (3.50-5.40) 3.55 x10^6/uL (3.50-5.40) Hemoglobin 6.7 g/dL (12.0-15.5) 11.0 g/dL (12.0-15.5) Hematocrit 19.5 % (36.0-47.0) 33.9 % (36.0-47.0) Mean Corpuscular Volume 95 fL (79-100) 96 fL (79-100) Mean Corpuscular Hemoglobin 33 pg (25-35) 31 pg (25-35) Mean Corpuscular Hemoglobin Concent 34 g/dL (31-37) 32 g/dL (31-37) Red Cell Distribution Width 19.1 % (11.5-14.5) 19.2 % (11.5-14.5) Platelet Count 89 x10^3/uL (140-400) 160 x10^3/uL (140-400) Neutrophils (%) (Auto) 84 % (31-73) 82 % (31-73) Lymphocytes (%) (Auto) 8 % (24-48) 9 % (24-48) Monocytes (%) (Auto) 5 % (0-9) 6 % (0-9) Eosinophils (%) (Auto) 2 % (0-3) 2 % (0-3) Basophils (%) (Auto) 0 % (0-3) 1 % (0-3) Neutrophils # (Auto) 6.1 x10^3uL (1.8-7.7) 10.6 x10^3uL (1.8-7.7) Lymphocytes # (Auto) 0.6 x10^3/uL (1.0-4.8) 1.2 x10^3/uL (1.0-4.8) Monocytes # (Auto) 0.4 x10^3/uL (0.0-1.1) 0.7 x10^3/uL (0.0-1.1) Eosinophils # (Auto) 0.2 x10^3/uL (0.0-0.7) 0.2 x10^3/uL (0.0-0.7) Basophils # (Auto) 0.0 x10^3/uL (0.0-0.2) 0.1 x10^3/uL (0.0-0.2) Sodium Level 137 mmol/L (136-145) 136 mmol/L (136-145) Potassium Level 5.7 mmol/L (3.5-5.1) 5.3 mmol/L (3.5-5.1) Chloride Level 99 mmol/L (98-107) 98 mmol/L (98-107) Carbon Dioxide Level 31 mmol/L (21-32) 31 mmol/L (21-32) Anion Gap 7 (6-14) 7 (6-14) Blood Urea Nitrogen 36 mg/dL (7-20) 39 mg/dL (7-20) Creatinine 2.9 mg/dL (0.6-1.0) 3.0 mg/dL (0.6-1.0) Estimated GFR (Cockcroft-Gault) 16.8 16.2 BUN/Creatinine Ratio 12 (6-20) Glucose Level 325 mg/dL (70-99) 276 mg/dL (70-99) Lactic Acid Level 2.5 mmol/L (0.4-2.0) 1.3 mmol/L (0.4-2.0) Calcium Level 8.5 mg/dL (8.5-10.1) 8.9 mg/dL (8.5-10.1) Total Bilirubin 0.4 mg/dL (0.2-1.0) Aspartate Amino Transf (AST/SGOT) 17 U/L (15-37) Alanine Aminotransferase (ALT/SGPT) 22 U/L (14-59) Alkaline Phosphatase 111 U/L (46-116) Total Protein 7.9 g/dL (6.4-8.2) Albumin 3.2 g/dL (3.4-5.0) Albumin/Globulin Ratio 0.7 (1.0-1.7) Glucose (Fingerstick) 217 mg/dL (70-99) Test 10/11/16 10:50 White Blood Count 16.2 x10^3/uL (4.0-11.0) Red Blood Count 3.26 x10^6/uL (3.50-5.40) Hemoglobin 10.3 g/dL (12.0-15.5) Hematocrit 31.4 % (36.0-47.0) Mean Corpuscular Volume 96 fL (79-100) Mean Corpuscular Hemoglobin 32 pg (25-35) Mean Corpuscular Hemoglobin Concent 33 g/dL (31-37) Red Cell Distribution Width 19.0 % (11.5-14.5) Platelet Count 127 x10^3/uL (140-400) Neutrophils (%) (Auto) 88 % (31-73) Lymphocytes (%) (Auto) 6 % (24-48) Monocytes (%) (Auto) 5 % (0-9) Eosinophils (%) (Auto) 1 % (0-3) Basophils (%) (Auto) 1 % (0-3) Neutrophils # (Auto) 14.3 x10^3uL (1.8-7.7) Lymphocytes # (Auto) 0.9 x10^3/uL (1.0-4.8) Monocytes # (Auto) 0.8 x10^3/uL (0.0-1.1) Eosinophils # (Auto) 0.1 x10^3/uL (0.0-0.7) Basophils # (Auto) 0.1 x10^3/uL (0.0-0.2) Segmented Neutrophils % 81 % (35-66) Band Neutrophils % 12 % (0-9) Lymphocytes % 3 % (24-48) Monocytes % 4 % (0-10) Platelet Estimate Decreased (ADEQUATE) Polychromasia Slight Anisocytosis Slight Laboratory Tests Test 10/10/16 20:30 10/10/16 23:00 10/11/16 00:40 10/11/16 07:37 White Blood Count 7.3 x10^3/uL (4.0-11.0) 12.9 x10^3/uL (4.0-11.0) Red Blood Count 2.05 x10^6/uL (3.50-5.40) 3.55 x10^6/uL (3.50-5.40) Hemoglobin 6.7 g/dL (12.0-15.5) 11.0 g/dL (12.0-15.5) Hematocrit 19.5 % (36.0-47.0) 33.9 % (36.0-47.0) Mean Corpuscular Volume 95 fL (79-100) 96 fL (79-100) Mean Corpuscular Hemoglobin 33 pg (25-35) 31 pg (25-35) Mean Corpuscular Hemoglobin Concent 34 g/dL (31-37) 32 g/dL (31-37) Red Cell Distribution Width 19.1 % (11.5-14.5) 19.2 % (11.5-14.5) Platelet Count 89 x10^3/uL (140-400) 160 x10^3/uL (140-400) Neutrophils (%) (Auto) 84 % (31-73) 82 % (31-73) Lymphocytes (%) (Auto) 8 % (24-48) 9 % (24-48) Monocytes (%) (Auto) 5 % (0-9) 6 % (0-9) Eosinophils (%) (Auto) 2 % (0-3) 2 % (0-3) Basophils (%) (Auto) 0 % (0-3) 1 % (0-3) Neutrophils # (Auto) 6.1 x10^3uL (1.8-7.7) 10.6 x10^3uL (1.8-7.7) Lymphocytes # (Auto) 0.6 x10^3/uL (1.0-4.8) 1.2 x10^3/uL (1.0-4.8) Monocytes # (Auto) 0.4 x10^3/uL (0.0-1.1) 0.7 x10^3/uL (0.0-1.1) Eosinophils # (Auto) 0.2 x10^3/uL (0.0-0.7) 0.2 x10^3/uL (0.0-0.7) Basophils # (Auto) 0.0 x10^3/uL (0.0-0.2) 0.1 x10^3/uL (0.0-0.2) Sodium Level 137 mmol/L (136-145) 136 mmol/L (136-145) Potassium Level 5.7 mmol/L (3.5-5.1) 5.3 mmol/L (3.5-5.1) Chloride Level 99 mmol/L (98-107) 98 mmol/L (98-107) Carbon Dioxide Level 31 mmol/L (21-32) 31 mmol/L (21-32) Anion Gap 7 (6-14) 7 (6-14) Blood Urea Nitrogen 36 mg/dL (7-20) 39 mg/dL (7-20) Creatinine 2.9 mg/dL (0.6-1.0) 3.0 mg/dL (0.6-1.0) Estimated GFR (Cockcroft-Gault) 16.8 16.2 BUN/Creatinine Ratio 12 (6-20) Glucose Level 325 mg/dL (70-99) 276 mg/dL (70-99) Lactic Acid Level 2.5 mmol/L (0.4-2.0) 1.3 mmol/L (0.4-2.0) Calcium Level 8.5 mg/dL (8.5-10.1) 8.9 mg/dL (8.5-10.1) Total Bilirubin 0.4 mg/dL (0.2-1.0) Aspartate Amino Transf (AST/SGOT) 17 U/L (15-37) Alanine Aminotransferase (ALT/SGPT) 22 U/L (14-59) Alkaline Phosphatase 111 U/L (46-116) Total Protein 7.9 g/dL (6.4-8.2) Albumin 3.2 g/dL (3.4-5.0) Albumin/Globulin Ratio 0.7 (1.0-1.7) Glucose (Fingerstick) 217 mg/dL (70-99) Test 10/11/16 10:50 White Blood Count 16.2 x10^3/uL (4.0-11.0) Red Blood Count 3.26 x10^6/uL (3.50-5.40) Hemoglobin 10.3 g/dL (12.0-15.5) Hematocrit 31.4 % (36.0-47.0) Mean Corpuscular Volume 96 fL (79-100) Mean Corpuscular Hemoglobin 32 pg (25-35) Mean Corpuscular Hemoglobin Concent 33 g/dL (31-37) Red Cell Distribution Width 19.0 % (11.5-14.5) Platelet Count 127 x10^3/uL (140-400) Neutrophils (%) (Auto) 88 % (31-73) Lymphocytes (%) (Auto) 6 % (24-48) Monocytes (%) (Auto) 5 % (0-9) Eosinophils (%) (Auto) 1 % (0-3) Basophils (%) (Auto) 1 % (0-3) Neutrophils # (Auto) 14.3 x10^3uL (1.8-7.7) Lymphocytes # (Auto) 0.9 x10^3/uL (1.0-4.8) Monocytes # (Auto) 0.8 x10^3/uL (0.0-1.1) Eosinophils # (Auto) 0.1 x10^3/uL (0.0-0.7) Basophils # (Auto) 0.1 x10^3/uL (0.0-0.2) Segmented Neutrophils % 81 % (35-66) Band Neutrophils % 12 % (0-9) Lymphocytes % 3 % (24-48) Monocytes % 4 % (0-10) Platelet Estimate Decreased (ADEQUATE) Polychromasia Slight Anisocytosis Slight Assessment/Plan Assessment/Plan Right femoral infected hematoma--I did review the patient's ultrasound performed in the right groin. There is a complex fluid collection that appears to be a hematoma secondary to her recent procedure. The patient is currently receiving vancomycin, and I will add Zosyn therapy to broaden the spectrum. In addition I will order a CT angiogram study to better evaluate the fluid collection and particularly how this interacts with her vasculature. In addition since I do not know what type of surgery she has had the CT scan will better evaluate this given her morbid obesity and limited ability to be examined secondary to her habitus. I'll follow up with these results and make further recommendations based on the findings. End-stage renal disease on hemodialysis--the patient is receiving hemodialysis through a right sided tunneled dialysis catheter and will continue to do so. Systemic sepsis--the patient is certainly manifesting signs of sepsis and likely should be monitored in the intensive care unit. Again I have broadened her antibiotic coverage to include vancomycin and Zosyn. Her white blood cell count is not markedly elevated at this time and will continue to monitor her labs going forward. Christiano Suarez DO, FACS, RPVI Power Saw Operator of Vascular Surgery [facility] CHRISTIANO SUAREZ DO Oct 11, 2016 13:06
[2016-10-11] MEDS: NYSTATIN TOPICAL POWDER 15GM BOTTLE. TP SCH ×2 (14:00→21:27)
[2016-10-11] MEDS: PIPERACILLIN/TAZOBACTAM 2.25 GM in IV NORMAL SALINE 50ML 50 ML IV SCH ×2 (15:25→21:29)
[2016-10-11] MEDS ORDERED: IOHEXOL 350 MG/ML 100 ML VIAL. IV ONE (16:00)
--- NOTE | 2016-10-11 16:32 | PDOC ---
Infectious Disease Note Vital Sign Vital Signs Vital Signs Date Time Temp Pulse Resp B/P (MAP) Pulse Ox O2 Delivery O2 Flow Rate FiO2 10/11/16 15:36 100.2 109 18 138/69 (92) 100 Nasal Cannula 2.0 100.2 Labs Lab Laboratory Tests Test 10/10/16 20:30 10/10/16 23:00 10/11/16 00:40 10/11/16 07:37 White Blood Count 7.3 x10^3/uL (4.0-11.0) 12.9 x10^3/uL (4.0-11.0) Red Blood Count 2.05 x10^6/uL (3.50-5.40) 3.55 x10^6/uL (3.50-5.40) Hemoglobin 6.7 g/dL (12.0-15.5) 11.0 g/dL (12.0-15.5) Hematocrit 19.5 % (36.0-47.0) 33.9 % (36.0-47.0) Mean Corpuscular Volume 95 fL (79-100) 96 fL (79-100) Mean Corpuscular Hemoglobin 33 pg (25-35) 31 pg (25-35) Mean Corpuscular Hemoglobin Concent 34 g/dL (31-37) 32 g/dL (31-37) Red Cell Distribution Width 19.1 % (11.5-14.5) 19.2 % (11.5-14.5) Platelet Count 89 x10^3/uL (140-400) 160 x10^3/uL (140-400) Neutrophils (%) (Auto) 84 % (31-73) 82 % (31-73) Lymphocytes (%) (Auto) 8 % (24-48) 9 % (24-48) Monocytes (%) (Auto) 5 % (0-9) 6 % (0-9) Eosinophils (%) (Auto) 2 % (0-3) 2 % (0-3) Basophils (%) (Auto) 0 % (0-3) 1 % (0-3) Neutrophils # (Auto) 6.1 x10^3uL (1.8-7.7) 10.6 x10^3uL (1.8-7.7) Lymphocytes # (Auto) 0.6 x10^3/uL (1.0-4.8) 1.2 x10^3/uL (1.0-4.8) Monocytes # (Auto) 0.4 x10^3/uL (0.0-1.1) 0.7 x10^3/uL (0.0-1.1) Eosinophils # (Auto) 0.2 x10^3/uL (0.0-0.7) 0.2 x10^3/uL (0.0-0.7) Basophils # (Auto) 0.0 x10^3/uL (0.0-0.2) 0.1 x10^3/uL (0.0-0.2) Sodium Level 137 mmol/L (136-145) 136 mmol/L (136-145) Potassium Level 5.7 mmol/L (3.5-5.1) 5.3 mmol/L (3.5-5.1) Chloride Level 99 mmol/L (98-107) 98 mmol/L (98-107) Carbon Dioxide Level 31 mmol/L (21-32) 31 mmol/L (21-32) Anion Gap 7 (6-14) 7 (6-14) Blood Urea Nitrogen 36 mg/dL (7-20) 39 mg/dL (7-20) Creatinine 2.9 mg/dL (0.6-1.0) 3.0 mg/dL (0.6-1.0) Estimated GFR (Cockcroft-Gault) 16.8 16.2 BUN/Creatinine Ratio 12 (6-20) Glucose Level 325 mg/dL (70-99) 276 mg/dL (70-99) Lactic Acid Level 2.5 mmol/L (0.4-2.0) 1.3 mmol/L (0.4-2.0) Calcium Level 8.5 mg/dL (8.5-10.1) 8.9 mg/dL (8.5-10.1) Total Bilirubin 0.4 mg/dL (0.2-1.0) Aspartate Amino Transf (AST/SGOT) 17 U/L (15-37) Alanine Aminotransferase (ALT/SGPT) 22 U/L (14-59) Alkaline Phosphatase 111 U/L (46-116) Total Protein 7.9 g/dL (6.4-8.2) Albumin 3.2 g/dL (3.4-5.0) Albumin/Globulin Ratio 0.7 (1.0-1.7) Glucose (Fingerstick) 217 mg/dL (70-99) Test 10/11/16 10:50 White Blood Count 16.2 x10^3/uL (4.0-11.0) Red Blood Count 3.26 x10^6/uL (3.50-5.40) Hemoglobin 10.3 g/dL (12.0-15.5) Hematocrit 31.4 % (36.0-47.0) Mean Corpuscular Volume 96 fL (79-100) Mean Corpuscular Hemoglobin 32 pg (25-35) Mean Corpuscular Hemoglobin Concent 33 g/dL (31-37) Red Cell Distribution Width 19.0 % (11.5-14.5) Platelet Count 127 x10^3/uL (140-400) Neutrophils (%) (Auto) 88 % (31-73) Lymphocytes (%) (Auto) 6 % (24-48) Monocytes (%) (Auto) 5 % (0-9) Eosinophils (%) (Auto) 1 % (0-3) Basophils (%) (Auto) 1 % (0-3) Neutrophils # (Auto) 14.3 x10^3uL (1.8-7.7) Lymphocytes # (Auto) 0.9 x10^3/uL (1.0-4.8) Monocytes # (Auto) 0.8 x10^3/uL (0.0-1.1) Eosinophils # (Auto) 0.1 x10^3/uL (0.0-0.7) Basophils # (Auto) 0.1 x10^3/uL (0.0-0.2) Segmented Neutrophils % 81 % (35-66) Band Neutrophils % 12 % (0-9) Lymphocytes % 3 % (24-48) Monocytes % 4 % (0-10) Platelet Estimate Decreased (ADEQUATE) Polychromasia Slight Anisocytosis Slight Objective Assessment Sepsis, POA Cellulitis and abscess right groin surgical site Encephalopathy ERSD on HD DM Anemia s/p PRBCs, 10/10 Plan Plan of Care vanc and Zosyn for now f/u BC Monitor labs Await vasc f/u. may need surgical debridement [place] [facility] [place] to [place] Thank you [id number] Patient seen and examined. Chart reviewed. Case discussed with STATE TESTED NURSING ASSISTANT. Agree with above plan ANTONIO BULLARD APRN Oct 11, 2016 16:32 MICHAEL DELANEY MD Oct 11, 2016 18:59
[2016-10-11 16:43] LABS: HCO3 ABG 30 mmol/L (21-28); PCO2 ABG 44 mmHg (35-46); PH ABG 7.45 (7.35-7.45); PO2 ABG 66 mmHg (75-108); SAT O2 ABG 93 % (92-99)
[2016-10-11 16:46] LABS: FIO2 ABG 28
--- NOTE | 2016-10-11 17:51 | RAD ---
EXAM: Chest, single view. HISTORY: Shortness of breath. Sepsis. COMPARISON: 07/01/2016 FINDINGS: A frontal view of the chest is obtained. There is mild diffuse increased interstitial opacity. There is no consolidation, effusion or pneumothorax. The heart is normal in size for portable technique. There is a right internal jugular catheter with the tip in the superior cavoatrial junction. There is a left cardiac pacemaker defibrillator in expected position. IMPRESSION: Mild diffuse increased opacity likely due to interstitial infiltrate. Electronically signed by: Dianelys Fan MD (10/11/2016 5:48 PM) [id number]
--- NOTE | 2016-10-11 20:28 | RAD ---
EXAM: Head CT without contrast. HISTORY: Altered mental status. TECHNIQUE: Computed tomographic images of the head were obtained without contrast. *One or more of the following individualized dose reduction techniques were utilized for this examination: 1. Automated exposure control. 2. Adjustment of the mA and/or kV according to patient size. 3. Use of iterative reconstruction technique. COMPARISON: 07/01/2016. FINDINGS: There is no acute or subacute extra-axial or intraparenchymal hemorrhage. There is no mass effect or midline shift. There is no hydrocephalus. There are areas of decreased attenuation within the cerebral white matter, nonspecific and likely related to chronic small vessel disease. There is mild ethmoid sinus mucosal thickening and a suspected sphenoid sinus mucus retention cyst. There is a right og bullosa. There are findings consistent with lens surgery. The mastoid air cells are clear. No calvarial lesion is seen. IMPRESSION: 1. No acute intracranial finding. Note is made that MRI is more sensitive for acute infarction. 2. Subtle areas of hypodensity within the cerebral white matter, a nonspecific finding which can be seen with chronic small vessel disease. Electronically signed by: Dianelys Fan MD (10/11/2016 8:25 PM) [id number]
[2016-10-11] MEDS ORDERED: FAMOTIDINE 20 MG/2 ML VIAL IVP SCH (21:00)
[2016-10-11] MEDS ORDERED: DARBEPOETIN ALFA 60 MCG/0.3 ML DISP.SYRIN. SQ SCH (21:00)
[2016-10-11] MEDS: HEPARIN PF for SUB-Q USE 5,000 UNIT/0.5 ML VIAL. SQ SCH (21:28)
--- NOTE | 2016-10-11 22:08 | RAD ---
CTA of the abdomen and pelvis to include a bilateral lower extremity arterial runoff study 10/11/2016 CLINICAL HISTORY: History of recent right femoral artery graft placement with recent abscess in the right thigh. TECHNIQUE: After the intravenous administration of 95 cc of Omnipaque 350, contiguous, 0.625 mm axial sections were obtained through the abdomen and pelvis. The study was continued as a bilateral lower extremity arterial runoff. Multiplanar 3-D MIP and volume rendered reconstructed images were obtained. One or more of the following individualized dose reduction techniques were utilized for this study: 1. Automated exposure control. 2. Adjustment of the mA and/or kV according to patient size. 3. Use of iterative reconstruction technique. FINDINGS: Comparison is made to patient's ultrasound of the right thigh dated 10/10/2016. Images through the lung bases demonstrate mild cardiomegaly. Minimal dependent subsegmental atelectasis is seen Images through the lung bases demonstrate the liver to be mildly enlarged measuring 22 cm in length. Decreased attenuation of the liver parenchyma is seen consistent with mild fatty infiltration. The spleen, pancreas, adrenal glands and right kidney are within normal limits. The patient is status post left nephrectomy. The gallbladder is distended. No free fluid or free air is seen within the abdomen. There is no evidence of bowel obstruction. A large right paracentral ventral hernia is seen which contains fat. This measures 9 cm in greatest diameter. Images through the pelvis demonstrate the urinary bladder distended with urine. No adnexal mass is seen. A moderate amount of stool is seen involving the rectum and sigmoid colon. No free fluid is noted. Degenerative changes are seen involving the lower thoracic and throughout the lumbar spine. CTA images demonstrate moderate atherosclerotic plaque formation involving the abdominal aorta. The abdominal aorta tapers normally. There is a solitary right renal artery. This artery is patent. The origins of the celiac trunk, superior mesenteric artery and inferior mesenteric artery are patent. Mild to moderate atherosclerotic plaque formation is seen involving the origins of both common iliac arteries. No area of stenosis or occlusion is seen. Scattered atherosclerotic plaque formation is seen involving the external and internal iliac arteries and their branches. No area stenosis or occlusion is seen. Moderate atheromatous/atherosclerotic plaque formation is seen involving the right common femoral artery and right superficial femoral artery. A 50 percent stenosis is seen involving the proximal right superficial femoral artery. This measures 5 mm in length. Mild to moderate atheromatous/atherosclerotic plaque formation is seen involving the right popliteal artery. No area stenosis or occlusion is definitely seen. Moderate atheromatous plaque formation is seen involving the proximal right anterior tibial artery at its origin. No areas stenosis or occlusion is seen. The right peroneal artery is small but continues to the level of the right ankle. The right anterior and posterior tibial arteries continue to the right ankle/foot. Mild/moderate atherosclerotic plaque formation is seen involving the left common femoral and superficial femoral arteries and their branches. A greater than 75 percent stenosis is seen involving the proximal left superficial femoral artery. This measures 9 mm in length. Moderate atheromatous/atherosclerotic plaque formation is seen involving the left popliteal artery. A 50 percent stenosis is seen involving the proximal left popliteal artery. This measures 5 mm in length. A 50 percent stenosis is seen involving the mid/distal left popliteal artery. This measures 1 cm in length. There appears to be a greater than 75 percent stenosis involving the origin of the left anterior tibial artery. This measures 2 mm in length. The left peroneal artery becomes very small and is difficult to follow beyond the mid/distal left calf. The left anterior and posterior tibial arteries are patent to the level of the left foot/ankle. A complex fluid collection is seen within the deep subcutaneous fat of the proximal anterior/medial right thigh. This measures 11.5 x 7.1 x 4.5 cm craniocaudal, transverse and AP dimensions. This is concerning for recurrent abscess given the patient's history. Clinical correlation is recommended. IMPRESSION: 1. 11.5 cm complex fluid collection is seen within the soft tissues of the proximal anterior/medial right thigh concerning for a recurrent abscess. Clinical correlation is recommended. 2. Moderate atheromatous/atherosclerotic plaque formation is seen involving the abdominal aorta and its branches as outlined above. Multiple areas of stenoses are seen involving the major arterial structures of the lower extremities, left greater than right as outlined above. Electronically signed by: Toby Stanton MD (10/11/2016 10:05 PM) [facility]
--- NOTE | 2016-10-11 22:27 | CONS ---
DATE OF CONSULTATION: 10/11/2016 REFERRING PHYSICIAN: Dr. Sparrow. REASON FOR CONSULTATION: Right groin abscess. HISTORY OF PRESENT ILLNESS: This patient is a 56-year-old female who is encephalopathic, unable to provide history of present illness, past medical history or review of systems. There is no family present at this time. According to the medical record and RN, she has a history of end-stage renal disease, on hemodialysis. Apparently, she had had trouble with an AV access. In order to improve circulation, an attempt to harvest a vein from right leg was made at [facility]. Details of the procedure are not available. She later developed redness, swelling and pain at the surgical site associated with chills and shakes. An ultrasound of the right thigh/groin area revealed a complex fluid collection within the subcutaneous tissues, measuring 6.5 x 13.3 x 2.1 cm. Over the last 24 hours, she has spiked a fever of 102.1 with a white blood cell count trending up. She was initially on vancomycin and Zosyn, was recently added. PAST MEDICAL HISTORY: MRSA screen nares 04/14/2016. Influenza A in 2013. End-stage renal disease, on hemodialysis since 04/2016. Hypertension, coronary artery disease, diabetes mellitus type 1, diabetic foot ulcer, cataracts status post lens transplant bilaterally, chronic systolic congestive heart failure, obesity, gastroesophageal reflux disease and peripheral neuropathy. PAST SURGICAL HISTORY: Left nephrectomy, hysterectomy, ICD placement. FAMILY HISTORY: Positive for diabetes mellitus and hypertension. SOCIAL HISTORY: Residing at a retirement prior to admission. History of smoking. ALLERGIES: SULFAMETHOXAZOLE, TRIMETHOPRIM AND VENOM, HONEY BEE. MEDICATIONS: Vancomycin, Zosyn. Other medications are available and have been reviewed on the APR. REVIEW OF SYSTEMS: Unobtainable as the patient is encephalopathic. PHYSICAL EXAMINATION: GENERAL: female lying in bed in no apparent distress. VITAL SIGNS: Temperature is 100.2, T-max 102.1, blood pressure 138/69, heart rate 109, respiratory rate 18, pulse oximetry is 100% on 2 liters nasal cannula, weight 219 pounds, BMI 40. HEENT: Pupils equally round and reactive. Normal conjunctivae. Oral mucosa is pink and dry. LUNGS: Clear anteriorly. HEART: Normal S1 and S2. No murmur appreciated. ABDOMEN: Obese. Bowel sounds are present, soft. No grimace or guarding to palpation. EXTREMITIES: No gross edema or cyanosis. Right upper extremity AV fistula unremarkable with thrill and bruit present. SKIN: Without rash. Right groin incision healing well. Adjacent to the incision is an area of redness, swelling, warmth and guarding to palpation. LINES: Right-sided HDC area without redness, swelling or drainage and small area incision well approximated with sutures intact. LABORATORY DATA: Today, WBC 16.2 from 7.3 on admission, hemoglobin 10.3 from 6.7 on admission, platelet count 127,000, segs 81%, bands 12%, lymphocytes 3%. Sodium 136, potassium 5.3, creatinine ____, BUN 39, glucose 276, lactic acid 1.3 from 2.5 on admission. Total bilirubin 0.4, AST 17, ALT 22, albumin 3.2. MRSA screen and blood cultures pending. Ultrasound per HPI. IMPRESSION: 1. Sepsis present on admission. 2. Cellulitis and abscess, right groin surgical site. 3. Encephalopathy. 4. End-stage renal disease, on hemodialysis. 5. Diabetes mellitus. PLAN: Continue the antibiotics, await results of blood cultures. The patient to be transferred to intensive care unit. Monitor laboratory values. Await vascular followup. May need a surgical debridement. Also, records from [facility] have been requested. Thank you, Dr. Sparrow for asking us to participate in this patient's care. Should you have further questions or concerns, please call. MICHAEL DELANEY MD DR: HAYLEY/jenna JOB#: [id number] / [id number]
[2016-10-12] VITALS (24 sets, daily range): BP systolic 82–124; BP diastolic 39–83
[2016-10-12] MEDS: HYDROcodone/APAP 7.5/325MG 1 TAB TABLET PO PRN ×2 (05:23→21:28)
[2016-10-12] MEDS: PIPERACILLIN/TAZOBACTAM 2.25 GM in IV NORMAL SALINE 50ML 50 ML IV SCH ×3 (05:32→21:28)
[2016-10-12] MEDS: VANCOMYCIN PER PHARMACY MC PRN (07:39)
--- NOTE | 2016-10-12 07:55 | PDOC ---
Infectious Disease Note Subjective Subjective Fever Tmax 102.5 c/o persistent right groin pain, worse with touch or movement ROS ROS GEN: Denies chills, sweats CV: Denies chest pain RESP: Denies shortness of air, cough GI: Denies n/v/d Vital Sign Vital Signs Vital Signs Date Time Temp Pulse Resp B/P (MAP) Pulse Ox O2 Delivery O2 Flow Rate FiO2 10/12/16 07:00 Room Air 10/12/16 06:01 116 18 124/59 (80) 97 2.0 10/12/16 04:00 98.9 98.9 Physical Exam PHYSICAL EXAM GENERAL: Propped up in bed, tired appearance HEENT: Oral mucosa pink and dry. LUNGS: Clear anteriorly. HEART: Normal S1 and S2. No murmur appreciated. ABDOMEN: Obese. Bowel sounds are present, soft. No grimace or guarding to palpation. EXTREMITIES: No gross edema or cyanosis. Right upper extremity AV fistula unremarkable with thrill and bruit present. SKIN: Without rash. Right groin incision healing well. 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 PILOT: Arouses to name, ansewers few simple questions appropriately HDC area without redness, swelling or drainage and small area incision well approximated with sutures intact Labs Lab Laboratory Tests Test 10/11/16 10:50 10/11/16 15:35 10/11/16 16:02 10/11/16 16:20 White Blood Count 16.2 x10^3/uL (4.0-11.0) Red Blood Count 3.26 x10^6/uL (3.50-5.40) Hemoglobin 10.3 g/dL (12.0-15.5) Hematocrit 31.4 % (36.0-47.0) Mean Corpuscular Volume 96 fL (79-100) Mean Corpuscular Hemoglobin 32 pg (25-35) Mean Corpuscular Hemoglobin Concent 33 g/dL (31-37) Red Cell Distribution Width 19.0 % (11.5-14.5) Platelet Count 127 x10^3/uL (140-400) Neutrophils (%) (Auto) 88 % (31-73) Lymphocytes (%) (Auto) 6 % (24-48) Monocytes (%) (Auto) 5 % (0-9) Eosinophils (%) (Auto) 1 % (0-3) Basophils (%) (Auto) 1 % (0-3) Neutrophils # (Auto) 14.3 x10^3uL (1.8-7.7) Lymphocytes # (Auto) 0.9 x10^3/uL (1.0-4.8) Monocytes # (Auto) 0.8 x10^3/uL (0.0-1.1) Eosinophils # (Auto) 0.1 x10^3/uL (0.0-0.7) Basophils # (Auto) 0.1 x10^3/uL (0.0-0.2) Segmented Neutrophils % 81 % (35-66) Band Neutrophils % 12 % (0-9) Lymphocytes % 3 % (24-48) Monocytes % 4 % (0-10) Platelet Estimate Decreased (ADEQUATE) Polychromasia Slight Anisocytosis Slight O2 Saturation 93 % (92-99) Arterial Blood pH 7.45 (7.35-7.45) Arterial Blood pCO2 at Patient Temp 44 mmHg (35-46) Arterial Blood pO2 at Patient Temp 66 mmHg (75-108) Arterial Blood HCO3 30 mmol/L (21-28) Arterial Blood Base Excess 5 mmol/L (-3-3) FiO2 28 Glucose (Fingerstick) 132 mg/dL (70-99) Lactic Acid Level 1.3 mmol/L (0.4-2.0) Test 10/11/16 17:30 10/11/16 21:25 Glucose (Fingerstick) 148 mg/dL (70-99) 144 mg/dL (70-99) Micro BLOOD CULTURE Preliminary NO GROWTH AFTER 1 DAY Objective Assessment Sepsis, POA Cellulitis and abscess right groin near surgical site (11.5 x 7.1 x 4.5 cm on CTA) Leukocytosis Encephalopathy- waxes and wanes ERSD on HD DM Anemia s/p PRBCs, 10/10 MRSA nares positive Plan Plan of Care vanc and Zosyn Monitor labs/cultures needs drainage/debridement of abscess Patient seen and examined. Chart reviewed. Case discussed with OBSTETRICS NURSE. Agree with above plan. ANTONIO BULLARD APRN Oct 12, 2016 07:55 MICHAEL DELANEY MD Oct 12, 2016 18:58
[2016-10-12] MEDS: INSULIN ASPART 300 UNITS/3 ML INSULN.PEN SQ SCH ×3 (08:00→17:00)
[2016-10-12] MEDS: HEPARIN PF for SUB-Q USE 5,000 UNIT/0.5 ML VIAL. SQ SCH ×3 (09:00→21:36)
[2016-10-12] MEDS: BUMETANIDE 1 MG TABLET. PO SCH (09:50)
[2016-10-12] MEDS: FLUoxetine HCL 20 MG CAPSULE PO SCH (09:50)
[2016-10-12] MEDS: GLIMEPIRIDE 2 MG TABLET. PO SCH (09:50)
[2016-10-12] MEDS: TAMSULOSIN 0.4 MG CAP.ER.24H. PO SCH (09:50)
[2016-10-12] MEDS: SEVELAMER CARBONATE 800 MG TABLET. PO SCH ×3 (09:50→17:00)
[2016-10-12] MEDS: GABAPENTIN 400 MG CAPSULE. PO SCH ×3 (09:50→20:11)
[2016-10-12] MEDS: CARVEDILOL 6.25 MG TABLET. PO SCH ×2 (09:51→17:00)
[2016-10-12] MEDS: NYSTATIN TOPICAL POWDER 15GM BOTTLE. TP SCH ×3 (09:52→20:11)
--- NOTE | 2016-10-12 11:23 | PDOC ---
Renal-Progress Notes Subjective Notes Notes LESS CONFUSED History of Present Illness Hx of present illness STABLE Vitals Vitals Vital Signs Date Time Temp Pulse Resp B/P (MAP) Pulse Ox O2 Delivery O2 Flow Rate FiO2 10/12/16 10:00 102 16 96/49 (65) 97 Nasal Cannula 2.0 10/12/16 08:00 100.7 100.7 Weight Weight [ ] I.O. Intake and Output Intake and Output 10/12/16 07:00 Intake Total 250 ml Output Total 150 ml Balance 100 ml Intake Oral 200 ml IV Total 50 ml Output Urine Total 150 ml Labs Labs Laboratory Tests Test 10/11/16 15:35 10/11/16 16:02 10/11/16 16:20 10/11/16 17:30 O2 Saturation 93 % (92-99) Arterial Blood pH 7.45 (7.35-7.45) Arterial Blood pCO2 at Patient Temp 44 mmHg (35-46) Arterial Blood pO2 at Patient Temp 66 mmHg (75-108) Arterial Blood HCO3 30 mmol/L (21-28) Arterial Blood Base Excess 5 mmol/L (-3-3) FiO2 28 Glucose (Fingerstick) 132 mg/dL (70-99) 148 mg/dL (70-99) Lactic Acid Level 1.3 mmol/L (0.4-2.0) Test 10/11/16 21:25 Glucose (Fingerstick) 144 mg/dL (70-99) Micro Micro Microbiology 10/11/16 Blood Culture - Preliminary, Resulted NO GROWTH AFTER 1 DAY Review of Systems Constitutional: yes: alert, oriented Ears/Nose/Throat: Yes: no symptom reported Pulmonary: Yes no symptom reported Cardiovascular: Yes no symptom reported Gastrointestional: Yes: constipation Genitourinary: Yes: other (ANURIA) Musculoskeletal: Yes: muscle stiffness Skin: Yes no symptom reported Physical Exam General Appearance: no apparent distress Skin: warm Heart: S1S2 Abdomen: soft, bowel sounds present Genitourinary: bladder flat Neurology: alert, oriented, follow commands Assessment Assessment IMP SEPSIS RIGHT GROIN ABSCESS FUNCTIONING RIGHT ARM AVF BUT IMMATURE FOR CANNULATION RIGHT CHEST WALL TUNNELED HD CATHETER WITH EXPOSED CUFF LEUCOCYTOSIS ANEMIA ESRD DM II MET ENCEPHALOPATHY-IMPROVED PLAN HD THURSDAY ANTIBIOTICS PLACE NEW DIALYSIS CATHETER ONCE CULTURES ARE CLEAR UNLESS CATHETER IS FELT TO BE THE SOURCE OF INFECTION SUPPORTIVE CARE RITU PARSON MD Oct 12, 2016 11:23
--- NOTE | 2016-10-12 11:27 | PDOC2 ---
CONSULT Date of Consult Date of Consult DATE: 10/12/16 TIME: 11:22 Reason for Consult Reason for Consult: right groin post operative abscess Referring Physician Referring Physician: Kyara Identification/Chief Complaint Chief Complaint right groin pain Problems: Source Source: Chart review History of Present Illness Reason for Visit: 56 yo F with multiple medical problems. Pt poor historian, sitting up in chair , alert and answers some questions, but then trails off. Reportedly underwent right groin attempted vein harvest at research, but no vein harvested. Pt with c/o right groin pain Past Medical History Cardiovascular: CAD, CHF, HTN, Hyperlipidemia Pulmonary: COPD, Other CENTRAL NERVOUS SYSTEM: Periperal neuropathy GI: GERD, Other Heme/Onc: Anemia NOS Hepatobiliary: Other Psych: Depression Renal/: Chronic renal failure, UTI Endocrine: Diabetes, Hyperparathyroidism Past Surgical History Past Surgical History: Pacemaker, Cataract Removal, Other Family History Family History: Diabetes, Hypertension Social History No ALCOHOL: rare Drugs: None Lives: [facility] Current Medications Current Medications Current Medications Hydromorphone HCl (Dilaudid) 1 mg 1X ONCE IV Last administered on 10/10/16 20 :30; Start 10/10/16 at 20:00; Stop 10/10/16 at 20:01; Status DC Ondansetron HCl (Zofran) 4 mg 1X ONCE IV Last administered on 10/10/16 20:30 ; Start 10/10/16 at 20:00; Stop 10/10/16 at 20:01; Status DC Vancomycin HCl (Vanco Per Pharmacy) 1 each PRN DAILY PRN MC SEE COMMENTS Last administered on 10/12/16 07:39; Start 10/11/16 at 00:00 Ceftriaxone Sodium 50 ml @ 100 mls/hr 1X ONCE IV Last administered on 02:38; Start 10/10/16 at 23:00; Stop 10/10/16 at 23:29; Status DC Calcium Gluconate 1000 mg/Sodium Chloride 110 ml @ 220 mls/hr 1X ONCE IV Last administered on 10/10/16 23:30; Start 10/10/16 at 23:00; Stop 10/10/16 at 23:29; Status DC Insulin Human Regular (NovoLIN R VIAL) 10 unit 1X ONCE IV Last administered on 10/11/16 00:41; Start 10/10/16 at 23:00; Stop 10/10/16 at 23:01; Status DC Dextrose (Dextrose 50%-Water Syringe) 25 gm 1X ONCE IV Last administered on 00:37; Start 10/10/16 at 23:00; Stop 10/10/16 at 23:01; Status DC Sodium Bicarbonate 50 meq 1X ONCE IV Last administered on 10/11/16 00:34; Start 10/10/16 at 23:00; Stop 10/10/16 at 23:01; Status DC Ondansetron HCl (Zofran) 4 mg PRN Q8HRS PRN IV NAUSEA/VOMITING; Start 10/10/16 at 22:45; Stop 10/11/16 at 09:49; Status DC Morphine Sulfate 4 mg PRN Q2HR PRN IV PAIN Last administered on 10/11/16 19:56 ; Start 10/10/16 at 22:45; Stop 10/11/16 at 22:44; Status DC Acetaminophen (Tylenol) 650 mg PRN Q4HRS PRN PO FEVER Last administered on 10/11 19:09; Start 10/10/16 at 22:45; Stop 10/11/16 at 22:44; Status DC Vancomycin HCl 2 gm/Sodium Chloride 500 ml @ 250 mls/hr 1X ONCE IV Last administered on 10/11/16 00:44; Start 10/10/16 at 23:00; Stop 10/11/16 at 00:59 ; Status DC Vancomycin HCl 1.5 gm/Sodium Chloride 500 ml @ 250 mls/hr Q48H IV ; Start 10/13 at 01:00; Status Cancel Vancomycin HCl 1 each 1X ONCE MC ; Start 10/15/16 at 00:30; Stop 10/15/16 at 00 :31; Status Cancel Ondansetron HCl (Zofran) 4 mg PRN Q6HRS PRN IV NAUSEA/VOMITING; Start 10/11/16 at 09:48; Stop 10/12/16 at 09:47; Status DC Carvedilol (Coreg) 6.25 mg BIDWMEALS PO Last administered on 10/12/16 09:51; Start 10/11/16 at 10:00 Fluoxetine HCl (PROzac) 20 mg DAILY PO Last administered on 10/12/16 09:50; Start 10/11/16 at 10:00 Acetaminophen/ Hydrocodone Bitart (Lortab 7.5/325) 1 tab PRN Q4HRS PRN PO PAIN Last administered on 10/12/16 05:23; Start 10/11/16 at 10:00 Sevelamer Carbonate (Renvela) 800 mg TIDWMEALS PO Last administered on 09:50; Start 10/11/16 at 12:00 Tamsulosin HCl (Flomax) 0.4 mg DAILY PO Last administered on 10/12/16 09:50; Start 10/11/16 at 10:00 Bumetanide (Bumex) 1 mg DAILY PO Last administered on 10/12/16 09:50; Start at 10:00 Gabapentin (Neurontin) 400 mg TID PO Last administered on 10/12/16 09:50; Start 10/11/16 at 10:15 Glimepiride (Amaryl) 4 mg DAILYWBKFT PO Last administered on 10/12/16 09:50; Start 10/12/16 at 08:00 Nystatin (Nystop) 1 gabrielle TID TP Last administered on 10/12/16 09:52; Start 02/15 at 14:00 Insulin Aspart (NovoLOG) 0-9 UNITS TIDWMEALS SQ ; Start 10/11/16 at 12:00 Dextrose (Dextrose 50%-Water Syringe) 12.5 gm PRN Q15MIN PRN IV SEE COMMENTS; Start 10/11/16 at 10:00 Sodium Chloride 1,000 ml @ 1,000 mls/hr Q1H PRN IV hypotension; Start 10/11/16 at 11:56; Stop 10/11/16 at 17:55; Status DC Albumin Human 200 ml @ 200 mls/hr 1X PRN PRN IV Hypotension; Start 10/11/16 at 12:00; Stop 10/11/16 at 17:59; Status DC Acetaminophen (Tylenol) 500 mg 1X PRN PRN PO MILD PAIN / TEMP; Start 10/11/16 at 12:00; Stop 10/12/16 at 11:59 Diphenhydramine HCl (Benadryl) 25 mg 1X PRN PRN IV ITCHING; Start 10/11/16 at 12:00; Stop 10/12/16 at 11:59 Sodium Chloride (Normal Saline Flush) 10 ml 1X PRN PRN IV AP catheter pack; Start 10/11/16 at 12:00; Stop 10/12/16 at 11:59 Sodium Chloride (Normal Saline Flush) 10 ml 1X PRN PRN IV COMEDIAN catheter pack; Start 10/11/16 at 12:00; Stop 10/12/16 at 11:59 Sodium Chloride 1,000 ml @ 400 mls/hr Q2H30M PRN IV PATENCY; Start 10/11/16 at 11:56; Stop 10/11/16 at 23:55; Status DC Info (PHARMACY MONITORING -- do not chart) 1 each PRN DAILY PRN MC SEE COMMENTS ; Start 10/11/16 at 12:00; Status Cancel Info (PHARMACY MONITORING -- do not chart) 1 each PRN DAILY PRN MC SEE COMMENTS ; Start 10/11/16 at 12:00 Darbepoetin Manuel (Aranesp) 60 mcg WEEKLYHS SQ Last administered on 10/11/16 21 :27; Start 10/11/16 at 21:00 Piperacillin Sod/ Tazobactam Sod (Zosyn Per Pharmacy) 1 each PRN DAILY PRN MC SEE COMMENTS; Start 10/11/16 at 13:00 Piperacillin Sod/ Tazobactam Sod 2.25 gm/Sodium Chloride 50 ml @ 100 mls/hr Q8HRS IV Last administered on 10/12/16 05:32; Start 10/11/16 at 14:00 Famotidine (Pepcid) 20 mg QHS IVP Last administered on 10/11/16 21:27; Start 10/11/16 at 21:00; Stop 10/12/16 at 07:43; Status DC Heparin Sodium (Porcine) (Heparin Sq) 5,000 unit Q12HR SQ Last administered on 10/11/16 21:28; Start 10/11/16 at 21:00 Iohexol (Omnipaque 350 Mg/ml) 100 ml 1X ONCE IV ; Start 10/11/16 at 16:00; Stop 10/11/16 at 16:01; Status DC Vancomycin HCl 1 each 1X ONCE MC ; Start 10/13/16 at 05:00; Stop 10/13/16 at 05 :01 Famotidine (Pepcid) 20 mg Q48H IVP ; Start 10/12/16 at 21:00 Active Scripts Active Reported Tamsulosin Hcl 0.4 Mg Cap.er.24h 0.4 Mg PO DAILY Fluoxetine Hcl 20 Mg Capsule 20 Mg PO DAILY Aspirin 325 Mg Tablet 325 Mg PO DAILY Hydrocodone-Apap 7.5-325 (Hydrocodone Bit/Acetaminophen) 1 Each Tablet 1 Tab PO PRN Q4HRS PRN Renvela (Sevelamer Carbonate) 800 Mg Tablet 800 Mg PO TIDWMEALS Gabapentin 400 Mg Capsule 400 Mg PO TID Carvedilol 6.25 Mg Tablet 6.25 Mg PO DAILY Nystatin 1 Each Powder.ea. 1 Each PO TID Bumetanide 2 Mg Tablet 1 Tab PO DAILY Glimepiride 4 Mg Tablet 4 Mg PO DAILY Acetaminophen 325 Mg Capsule 650 Mg PO Q6HRS PRN Allergies Allergies: Coded Allergies: sulfamethoxazole (Verified Allergy, Severe, Hives, 03/18/13) trimethoprim (Verified Allergy, Severe, Hives, 03/18/13) venom-honey bee (Verified Allergy, Severe, Anaphylaxis, 03/18/13) I S O L A T I O N *CONTACT* (Verified Allergy, Unknown, 04/15/16) mrsa ROS Review of System unobtainable Physical Exam General: No acute distress HEENT: Atraumatic, Mucous membr. moist/pink Lungs: Normal air movement Abdomen: Soft, Other (obese, difficult to palpate hernia) Extremities: No clubbing, No cyanosis Skin: Other (right groin TTP, healed incision) Vitals VITALS Vital Signs Date Time Temp Pulse Resp B/P (MAP) Pulse Ox O2 Delivery O2 Flow Rate FiO2 10/12/16 11:00 96 18 90/45 (60) 96 Nasal Cannula 2.0 10/12/16 08:00 100.7 100.7 Labs Labs Laboratory Tests Test 10/10/16 20:30 10/10/16 23:00 10/11/16 00:40 10/11/16 04:30 White Blood Count 7.3 x10^3/uL (4.0-11.0) 12.9 x10^3/uL (4.0-11.0) Red Blood Count 2.05 x10^6/uL (3.50-5.40) 3.55 x10^6/uL (3.50-5.40) Hemoglobin 6.7 g/dL (12.0-15.5) 11.0 g/dL (12.0-15.5) Hematocrit 19.5 % (36.0-47.0) 33.9 % (36.0-47.0) Mean Corpuscular Volume 95 fL (79-100) 96 fL (79-100) Mean Corpuscular Hemoglobin 33 pg (25-35) 31 pg (25-35) Mean Corpuscular Hemoglobin Concent 34 g/dL (31-37) 32 g/dL (31-37) Red Cell Distribution Width 19.1 % (11.5-14.5) 19.2 % (11.5-14.5) Platelet Count 89 x10^3/uL (140-400) 160 x10^3/uL (140-400) Neutrophils (%) (Auto) 84 % (31-73) 82 % (31-73) Lymphocytes (%) (Auto) 8 % (24-48) 9 % (24-48) Monocytes (%) (Auto) 5 % (0-9) 6 % (0-9) Eosinophils (%) (Auto) 2 % (0-3) 2 % (0-3) Basophils (%) (Auto) 0 % (0-3) 1 % (0-3) Neutrophils # (Auto) 6.1 x10^3uL (1.8-7.7) 10.6 x10^3uL (1.8-7.7) Lymphocytes # (Auto) 0.6 x10^3/uL (1.0-4.8) 1.2 x10^3/uL (1.0-4.8) Monocytes # (Auto) 0.4 x10^3/uL (0.0-1.1) 0.7 x10^3/uL (0.0-1.1) Eosinophils # (Auto) 0.2 x10^3/uL (0.0-0.7) 0.2 x10^3/uL (0.0-0.7) Basophils # (Auto) 0.0 x10^3/uL (0.0-0.2) 0.1 x10^3/uL (0.0-0.2) Sodium Level 137 mmol/L (136-145) 136 mmol/L (136-145) Potassium Level 5.7 mmol/L (3.5-5.1) 5.3 mmol/L (3.5-5.1) Chloride Level 99 mmol/L (98-107) 98 mmol/L (98-107) Carbon Dioxide Level 31 mmol/L (21-32) 31 mmol/L (21-32) Anion Gap 7 (6-14) 7 (6-14) Blood Urea Nitrogen 36 mg/dL (7-20) 39 mg/dL (7-20) Creatinine 2.9 mg/dL (0.6-1.0) 3.0 mg/dL (0.6-1.0) Estimated GFR (Cockcroft-Gault) 16.8 16.2 BUN/Creatinine Ratio 12 (6-20) Glucose Level 325 mg/dL (70-99) 276 mg/dL (70-99) Lactic Acid Level 2.5 mmol/L (0.4-2.0) 1.3 mmol/L (0.4-2.0) Calcium Level 8.5 mg/dL (8.5-10.1) 8.9 mg/dL (8.5-10.1) Total Bilirubin 0.4 mg/dL (0.2-1.0) Aspartate Amino Transf (AST/SGOT) 17 U/L (15-37) Alanine Aminotransferase (ALT/SGPT) 22 U/L (14-59) Alkaline Phosphatase 111 U/L (46-116) Total Protein 7.9 g/dL (6.4-8.2) Albumin 3.2 g/dL (3.4-5.0) Albumin/Globulin Ratio 0.7 (1.0-1.7) Nasal Screen MRSA (PCR) Positive (Negative) Test 10/11/16 07:37 10/11/16 10:50 10/11/16 15:35 10/11/16 16:02 Glucose (Fingerstick) 217 mg/dL (70-99) 132 mg/dL (70-99) White Blood Count 16.2 x10^3/uL (4.0-11.0) Red Blood Count 3.26 x10^6/uL (3.50-5.40) Hemoglobin 10.3 g/dL (12.0-15.5) Hematocrit 31.4 % (36.0-47.0) Mean Corpuscular Volume 96 fL (79-100) Mean Corpuscular Hemoglobin 32 pg (25-35) Mean Corpuscular Hemoglobin Concent 33 g/dL (31-37) Red Cell Distribution Width 19.0 % (11.5-14.5) Platelet Count 127 x10^3/uL (140-400) Neutrophils (%) (Auto) 88 % (31-73) Lymphocytes (%) (Auto) 6 % (24-48) Monocytes (%) (Auto) 5 % (0-9) Eosinophils (%) (Auto) 1 % (0-3) Basophils (%) (Auto) 1 % (0-3) Neutrophils # (Auto) 14.3 x10^3uL (1.8-7.7) Lymphocytes # (Auto) 0.9 x10^3/uL (1.0-4.8) Monocytes # (Auto) 0.8 x10^3/uL (0.0-1.1) Eosinophils # (Auto) 0.1 x10^3/uL (0.0-0.7) Basophils # (Auto) 0.1 x10^3/uL (0.0-0.2) Segmented Neutrophils % 81 % (35-66) Band Neutrophils % 12 % (0-9) Lymphocytes % 3 % (24-48) Monocytes % 4 % (0-10) Platelet Estimate Decreased (ADEQUATE) Polychromasia Slight Anisocytosis Slight O2 Saturation 93 % (92-99) Arterial Blood pH 7.45 (7.35-7.45) Arterial Blood pCO2 at Patient Temp 44 mmHg (35-46) Arterial Blood pO2 at Patient Temp 66 mmHg (75-108) Arterial Blood HCO3 30 mmol/L (21-28) Arterial Blood Base Excess 5 mmol/L (-3-3) FiO2 28 Test 10/11/16 16:20 10/11/16 17:30 10/11/16 21:25 Lactic Acid Level 1.3 mmol/L (0.4-2.0) Glucose (Fingerstick) 148 mg/dL (70-99) 144 mg/dL (70-99) Laboratory Tests Test 10/11/16 15:35 10/11/16 16:02 10/11/16 16:20 10/11/16 17:30 O2 Saturation 93 % (92-99) Arterial Blood pH 7.45 (7.35-7.45) Arterial Blood pCO2 at Patient Temp 44 mmHg (35-46) Arterial Blood pO2 at Patient Temp 66 mmHg (75-108) Arterial Blood HCO3 30 mmol/L (21-28) Arterial Blood Base Excess 5 mmol/L (-3-3) FiO2 28 Glucose (Fingerstick) 132 mg/dL (70-99) 148 mg/dL (70-99) Lactic Acid Level 1.3 mmol/L (0.4-2.0) Test 10/11/16 21:25 Glucose (Fingerstick) 144 mg/dL (70-99) Images Images right groin fluid collection, concerning for abscess Assessment/Plan Assessment/Plan right groin abscess d/w vacular surgery pt has eaten today will plan I and D in AM Thanks for consult! ROGELIO COLLINS MD Oct 12, 2016 11:27
--- NOTE | 2016-10-12 11:34 | PDOC ---
SURGICAL PROGRESS NOTE Subjective Patient was seen and examined this morning and is much more lucid than she was yesterday during my exam. She still is having significant pain from her right groin hematoma but in general is improving. She had a low-grade temperature overnight but no further high-grade fevers. Vital Signs Vital Signs Date Time Temp Pulse Resp B/P (MAP) Pulse Ox O2 Delivery O2 Flow Rate FiO2 10/12/16 11:00 96 18 90/45 (60) 96 Nasal Cannula 2.0 10/12/16 08:00 100.7 100.7 I&O Intake and Output 10/12/16 07:00 Intake Total 250 ml Output Total 150 ml Balance 100 ml Intake Oral 200 ml IV Total 50 ml Output Urine Total 150 ml General: Alert, Oriented X3, Cooperative Abdomen: Normal bowel sounds, Soft, No tenderness Extremities: Other (right medial groin hematoma is stable, cellulitis is improved, but the patient is still markedly tender to palpation over this area, there is no skin breakdown, there is no ulceration, there is no gangrenous changes, there is no crepitance overlying the hematoma, she has a palpable thrill in her right upper extremity AV fistula which is still maturing) Labs Laboratory Tests Test 10/10/16 20:30 10/10/16 23:00 10/11/16 00:40 10/11/16 04:30 White Blood Count 7.3 x10^3/uL (4.0-11.0) 12.9 x10^3/uL (4.0-11.0) Red Blood Count 2.05 x10^6/uL (3.50-5.40) 3.55 x10^6/uL (3.50-5.40) Hemoglobin 6.7 g/dL (12.0-15.5) 11.0 g/dL (12.0-15.5) Hematocrit 19.5 % (36.0-47.0) 33.9 % (36.0-47.0) Mean Corpuscular Volume 95 fL (79-100) 96 fL (79-100) Mean Corpuscular Hemoglobin 33 pg (25-35) 31 pg (25-35) Mean Corpuscular Hemoglobin Concent 34 g/dL (31-37) 32 g/dL (31-37) Red Cell Distribution Width 19.1 % (11.5-14.5) 19.2 % (11.5-14.5) Platelet Count 89 x10^3/uL (140-400) 160 x10^3/uL (140-400) Neutrophils (%) (Auto) 84 % (31-73) 82 % (31-73) Lymphocytes (%) (Auto) 8 % (24-48) 9 % (24-48) Monocytes (%) (Auto) 5 % (0-9) 6 % (0-9) Eosinophils (%) (Auto) 2 % (0-3) 2 % (0-3) Basophils (%) (Auto) 0 % (0-3) 1 % (0-3) Neutrophils # (Auto) 6.1 x10^3uL (1.8-7.7) 10.6 x10^3uL (1.8-7.7) Lymphocytes # (Auto) 0.6 x10^3/uL (1.0-4.8) 1.2 x10^3/uL (1.0-4.8) Monocytes # (Auto) 0.4 x10^3/uL (0.0-1.1) 0.7 x10^3/uL (0.0-1.1) Eosinophils # (Auto) 0.2 x10^3/uL (0.0-0.7) 0.2 x10^3/uL (0.0-0.7) Basophils # (Auto) 0.0 x10^3/uL (0.0-0.2) 0.1 x10^3/uL (0.0-0.2) Sodium Level 137 mmol/L (136-145) 136 mmol/L (136-145) Potassium Level 5.7 mmol/L (3.5-5.1) 5.3 mmol/L (3.5-5.1) Chloride Level 99 mmol/L (98-107) 98 mmol/L (98-107) Carbon Dioxide Level 31 mmol/L (21-32) 31 mmol/L (21-32) Anion Gap 7 (6-14) 7 (6-14) Blood Urea Nitrogen 36 mg/dL (7-20) 39 mg/dL (7-20) Creatinine 2.9 mg/dL (0.6-1.0) 3.0 mg/dL (0.6-1.0) Estimated GFR (Cockcroft-Gault) 16.8 16.2 BUN/Creatinine Ratio 12 (6-20) Glucose Level 325 mg/dL (70-99) 276 mg/dL (70-99) Lactic Acid Level 2.5 mmol/L (0.4-2.0) 1.3 mmol/L (0.4-2.0) Calcium Level 8.5 mg/dL (8.5-10.1) 8.9 mg/dL (8.5-10.1) Total Bilirubin 0.4 mg/dL (0.2-1.0) Aspartate Amino Transf (AST/SGOT) 17 U/L (15-37) Alanine Aminotransferase (ALT/SGPT) 22 U/L (14-59) Alkaline Phosphatase 111 U/L (46-116) Total Protein 7.9 g/dL (6.4-8.2) Albumin 3.2 g/dL (3.4-5.0) Albumin/Globulin Ratio 0.7 (1.0-1.7) Nasal Screen MRSA (PCR) Positive (Negative) Test 10/11/16 07:37 10/11/16 10:50 10/11/16 15:35 10/11/16 16:02 Glucose (Fingerstick) 217 mg/dL (70-99) 132 mg/dL (70-99) White Blood Count 16.2 x10^3/uL (4.0-11.0) Red Blood Count 3.26 x10^6/uL (3.50-5.40) Hemoglobin 10.3 g/dL (12.0-15.5) Hematocrit 31.4 % (36.0-47.0) Mean Corpuscular Volume 96 fL (79-100) Mean Corpuscular Hemoglobin 32 pg (25-35) Mean Corpuscular Hemoglobin Concent 33 g/dL (31-37) Red Cell Distribution Width 19.0 % (11.5-14.5) Platelet Count 127 x10^3/uL (140-400) Neutrophils (%) (Auto) 88 % (31-73) Lymphocytes (%) (Auto) 6 % (24-48) Monocytes (%) (Auto) 5 % (0-9) Eosinophils (%) (Auto) 1 % (0-3) Basophils (%) (Auto) 1 % (0-3) Neutrophils # (Auto) 14.3 x10^3uL (1.8-7.7) Lymphocytes # (Auto) 0.9 x10^3/uL (1.0-4.8) Monocytes # (Auto) 0.8 x10^3/uL (0.0-1.1) Eosinophils # (Auto) 0.1 x10^3/uL (0.0-0.7) Basophils # (Auto) 0.1 x10^3/uL (0.0-0.2) Segmented Neutrophils % 81 % (35-66) Band Neutrophils % 12 % (0-9) Lymphocytes % 3 % (24-48) Monocytes % 4 % (0-10) Platelet Estimate Decreased (ADEQUATE) Polychromasia Slight Anisocytosis Slight O2 Saturation 93 % (92-99) Arterial Blood pH 7.45 (7.35-7.45) Arterial Blood pCO2 at Patient Temp 44 mmHg (35-46) Arterial Blood pO2 at Patient Temp 66 mmHg (75-108) Arterial Blood HCO3 30 mmol/L (21-28) Arterial Blood Base Excess 5 mmol/L (-3-3) FiO2 28 Test 10/11/16 16:20 10/11/16 17:30 10/11/16 21:25 Lactic Acid Level 1.3 mmol/L (0.4-2.0) Glucose (Fingerstick) 148 mg/dL (70-99) 144 mg/dL (70-99) Laboratory Tests Test 10/11/16 15:35 10/11/16 16:02 10/11/16 16:20 10/11/16 17:30 O2 Saturation 93 % (92-99) Arterial Blood pH 7.45 (7.35-7.45) Arterial Blood pCO2 at Patient Temp 44 mmHg (35-46) Arterial Blood pO2 at Patient Temp 66 mmHg (75-108) Arterial Blood HCO3 30 mmol/L (21-28) Arterial Blood Base Excess 5 mmol/L (-3-3) FiO2 28 Glucose (Fingerstick) 132 mg/dL (70-99) 148 mg/dL (70-99) Lactic Acid Level 1.3 mmol/L (0.4-2.0) Test 8/12/17 21:25 Glucose (Fingerstick) 144 mg/dL (70-99) Assessment/Plan Right groin hematoma--I did review her CT angiogram study which reveals no vascular involvement and no active extravasation into this area. There is a hematoma which is contained and directly overlying the location where the patient's pain is located. There is no significant abscess cavity and certainly no air within the subcutaneous tissue. I discussed with Dr. Martinez with Gen. surgery that given no vascular involvement, I will defer to their management regarding this problem. End-stage renal disease--the patient has a maturing right upper extremity AV fistula which is not ready for use. The patient has a tunneled dialysis catheter which likely should be replaced. This could be the source of the patient's high temperatures and sepsis. I would recommend interventional radiology to replace the tunnel dialysis catheter which she will need until her upper extremity access has matured. I discussed the plan with the nursing staff and at this point masker surgery will sign off. If there are any questions that should arise within her hospital stay please not hesitate to contact our service. Christiano Suarez DO, FACS, RPVI Manufact[employer] Specialist of Vascular Surgery [facility] Problems: CHRISTIANO SUAREZ DO Oct 12, 2016 11:34
--- NOTE | 2016-10-12 14:14 | PDOC ---
PROGRESS NOTES Chief Complaint Chief Complaint CC: Chronic renal failure, Right groin abscess, Sepsis -CAD -CHF -HTN -Hyperlipidemia History of Present Illness History of Present Illness -Pt was seen in the ICU -She was resting in the recliner and in NAD -Nasal MRSA was positive A Vitals Vitals Vital Signs Date Time Temp Pulse Resp B/P (MAP) Pulse Ox O2 Delivery O2 Flow Rate FiO2 10/12/16 13:00 106 19 104/50 (68) 95 Nasal Cannula 2.0 10/12/16 12:00 100.2 100.2 Physical Exam General: Alert, Cooperative, No acute distress Heart: Normal S1, Normal S2, Other (tachycardic, S1, S2, regular rhythm) Lungs: Clear, Other (No RRW) Abdomen: Normal bowel sounds, Soft, No tenderness Extremities: Other (right medial groin hematoma is stable, cellulitis is improved, but the patient is still markedly tender to palpation over this area, there is no skin breakdown, there is no ulceration, there is no gangrenous changes, there is no crepitance overlying the hematoma, she has a palpable thrill in her right upper extremity AV fistula which is still maturing) Skin: Other (right groin TTP, healed incision) Labs LABS Laboratory Tests Test 10/11/16 15:35 10/11/16 16:02 10/11/16 16:20 10/11/16 17:30 O2 Saturation 93 % (92-99) Arterial Blood pH 7.45 (7.35-7.45) Arterial Blood pCO2 at Patient Temp 44 mmHg (35-46) Arterial Blood pO2 at Patient Temp 66 mmHg (75-108) Arterial Blood HCO3 30 mmol/L (21-28) Arterial Blood Base Excess 5 mmol/L (-3-3) FiO2 28 Glucose (Fingerstick) 132 mg/dL (70-99) 148 mg/dL (70-99) Lactic Acid Level 1.3 mmol/L (0.4-2.0) Test 10/11/16 21:25 10/12/16 12:23 Glucose (Fingerstick) 144 mg/dL (70-99) 163 mg/dL (70-99) Review of Systems Review of Systems -Weakness -Denies n/v/d Assessment and Plan Assessmemt and Plan CC: Chronic renal failure, Right groin abscess, Sepsis -CAD -CHF -HTN -Hyperlipidemia Plan: -Cont. home meds -Cont. cardiac monitoring -Recheck labs -Appreciate subspecialist input -Cont. cardiac monitoring Problems: Comment Review of Relevant I have reviewed the following items nelda (where applicable) has been applied. Labs Laboratory Tests Test 10/10/16 20:30 10/10/16 23:00 10/11/16 00:40 10/11/16 04:30 White Blood Count 7.3 x10^3/uL (4.0-11.0) 12.9 x10^3/uL (4.0-11.0) Red Blood Count 2.05 x10^6/uL (3.50-5.40) 3.55 x10^6/uL (3.50-5.40) Hemoglobin 6.7 g/dL (12.0-15.5) 11.0 g/dL (12.0-15.5) Hematocrit 19.5 % (36.0-47.0) 33.9 % (36.0-47.0) Mean Corpuscular Volume 95 fL (79-100) 96 fL (79-100) Mean Corpuscular Hemoglobin 33 pg (25-35) 31 pg (25-35) Mean Corpuscular Hemoglobin Concent 34 g/dL (31-37) 32 g/dL (31-37) Red Cell Distribution Width 19.1 % (11.5-14.5) 19.2 % (11.5-14.5) Platelet Count 89 x10^3/uL (140-400) 160 x10^3/uL (140-400) Neutrophils (%) (Auto) 84 % (31-73) 82 % (31-73) Lymphocytes (%) (Auto) 8 % (24-48) 9 % (24-48) Monocytes (%) (Auto) 5 % (0-9) 6 % (0-9) Eosinophils (%) (Auto) 2 % (0-3) 2 % (0-3) Basophils (%) (Auto) 0 % (0-3) 1 % (0-3) Neutrophils # (Auto) 6.1 x10^3uL (1.8-7.7) 10.6 x10^3uL (1.8-7.7) Lymphocytes # (Auto) 0.6 x10^3/uL (1.0-4.8) 1.2 x10^3/uL (1.0-4.8) Monocytes # (Auto) 0.4 x10^3/uL (0.0-1.1) 0.7 x10^3/uL (0.0-1.1) Eosinophils # (Auto) 0.2 x10^3/uL (0.0-0.7) 0.2 x10^3/uL (0.0-0.7) Basophils # (Auto) 0.0 x10^3/uL (0.0-0.2) 0.1 x10^3/uL (0.0-0.2) Sodium Level 137 mmol/L (136-145) 136 mmol/L (136-145) Potassium Level 5.7 mmol/L (3.5-5.1) 5.3 mmol/L (3.5-5.1) Chloride Level 99 mmol/L (98-107) 98 mmol/L (98-107) Carbon Dioxide Level 31 mmol/L (21-32) 31 mmol/L (21-32) Anion Gap 7 (6-14) 7 (6-14) Blood Urea Nitrogen 36 mg/dL (7-20) 39 mg/dL (7-20) Creatinine 2.9 mg/dL (0.6-1.0) 3.0 mg/dL (0.6-1.0) Estimated GFR (Cockcroft-Gault) 16.8 16.2 BUN/Creatinine Ratio 12 (6-20) Glucose Level 325 mg/dL (70-99) 276 mg/dL (70-99) Lactic Acid Level 2.5 mmol/L (0.4-2.0) 1.3 mmol/L (0.4-2.0) Calcium Level 8.5 mg/dL (8.5-10.1) 8.9 mg/dL (8.5-10.1) Total Bilirubin 0.4 mg/dL (0.2-1.0) Aspartate Amino Transf (AST/SGOT) 17 U/L (15-37) Alanine Aminotransferase (ALT/SGPT) 22 U/L (14-59) Alkaline Phosphatase 111 U/L (46-116) Total Protein 7.9 g/dL (6.4-8.2) Albumin 3.2 g/dL (3.4-5.0) Albumin/Globulin Ratio 0.7 (1.0-1.7) Nasal Screen MRSA (PCR) Positive (Negative) Test 10/11/16 07:37 10/11/16 10:50 10/11/16 15:35 10/11/16 16:02 Glucose (Fingerstick) 217 mg/dL (70-99) 132 mg/dL (70-99) White Blood Count 16.2 x10^3/uL (4.0-11.0) Red Blood Count 3.26 x10^6/uL (3.50-5.40) Hemoglobin 10.3 g/dL (12.0-15.5) Hematocrit 31.4 % (36.0-47.0) Mean Corpuscular Volume 96 fL (79-100) Mean Corpuscular Hemoglobin 32 pg (25-35) Mean Corpuscular Hemoglobin Concent 33 g/dL (31-37) Red Cell Distribution Width 19.0 % (11.5-14.5) Platelet Count 127 x10^3/uL (140-400) Neutrophils (%) (Auto) 88 % (31-73) Lymphocytes (%) (Auto) 6 % (24-48) Monocytes (%) (Auto) 5 % (0-9) Eosinophils (%) (Auto) 1 % (0-3) Basophils (%) (Auto) 1 % (0-3) Neutrophils # (Auto) 14.3 x10^3uL (1.8-7.7) Lymphocytes # (Auto) 0.9 x10^3/uL (1.0-4.8) Monocytes # (Auto) 0.8 x10^3/uL (0.0-1.1) Eosinophils # (Auto) 0.1 x10^3/uL (0.0-0.7) Basophils # (Auto) 0.1 x10^3/uL (0.0-0.2) Segmented Neutrophils % 81 % (35-66) Band Neutrophils % 12 % (0-9) Lymphocytes % 3 % (24-48) Monocytes % 4 % (0-10) Platelet Estimate Decreased (ADEQUATE) Polychromasia Slight Anisocytosis Slight O2 Saturation 93 % (92-99) Arterial Blood pH 7.45 (7.35-7.45) Arterial Blood pCO2 at Patient Temp 44 mmHg (35-46) Arterial Blood pO2 at Patient Temp 66 mmHg (75-108) Arterial Blood HCO3 30 mmol/L (21-28) Arterial Blood Base Excess 5 mmol/L (-3-3) FiO2 28 Test 10/11/16 16:20 10/11/16 17:30 10/11/16 21:25 10/12/16 12:23 Lactic Acid Level 1.3 mmol/L (0.4-2.0) Glucose (Fingerstick) 148 mg/dL (70-99) 144 mg/dL (70-99) 163 mg/dL (70-99) Laboratory Tests Test 10/11/16 15:35 10/11/16 16:02 10/11/16 16:20 10/11/16 17:30 O2 Saturation 93 % (92-99) Arterial Blood pH 7.45 (7.35-7.45) Arterial Blood pCO2 at Patient Temp 44 mmHg (35-46) Arterial Blood pO2 at Patient Temp 66 mmHg (75-108) Arterial Blood HCO3 30 mmol/L (21-28) Arterial Blood Base Excess 5 mmol/L (-3-3) FiO2 28 Glucose (Fingerstick) 132 mg/dL (70-99) 148 mg/dL (70-99) Lactic Acid Level 1.3 mmol/L (0.4-2.0) Test 10/11/16 21:25 10/12/16 12:23 Glucose (Fingerstick) 144 mg/dL (70-99) 163 mg/dL (70-99) Microbiology 10/11/16 Blood Culture - Preliminary, Resulted NO GROWTH AFTER 1 DAY Medications Current Medications Hydromorphone HCl (Dilaudid) 1 mg 1X ONCE IV Last administered on 10/10/16 20 :30; Start 10/10/16 at 20:00; Stop 10/10/16 at 20:01; Status DC Ondansetron HCl (Zofran) 4 mg 1X ONCE IV Last administered on 10/10/16 20:30 ; Start 10/10/16 at 20:00; Stop 10/10/16 at 20:01; Status DC Vancomycin HCl (Vanco Per Pharmacy) 1 each PRN DAILY PRN MC SEE COMMENTS Last administered on 10/12/16 07:39; Start 10/11/16 at 00:00 Ceftriaxone Sodium 50 ml @ 100 mls/hr 1X ONCE IV Last administered on 02:38; Start 10/10/16 at 23:00; Stop 10/10/16 at 23:29; Status DC Calcium Gluconate 1000 mg/Sodium Chloride 110 ml @ 220 mls/hr 1X ONCE IV Last administered on 10/10/16 23:30; Start 10/10/16 at 23:00; Stop 10/10/16 at 23:29; Status DC Insulin Human Regular (NovoLIN R VIAL) 10 unit 1X ONCE IV Last administered on 10/11/16 00:41; Start 10/10/16 at 23:00; Stop 10/10/16 at 23:01; Status DC Dextrose (Dextrose 50%-Water Syringe) 25 gm 1X ONCE IV Last administered on 00:37; Start 10/10/16 at 23:00; Stop 10/10/16 at 23:01; Status DC Sodium Bicarbonate 50 meq 1X ONCE IV Last administered on 10/11/16 00:34; Start 10/10/16 at 23:00; Stop 10/10/16 at 23:01; Status DC Ondansetron HCl (Zofran) 4 mg PRN Q8HRS PRN IV NAUSEA/VOMITING; Start 10/10/16 at 22:45; Stop 10/11/16 at 09:49; Status DC Morphine Sulfate 4 mg PRN Q2HR PRN IV PAIN Last administered on 10/11/16 19:56 ; Start 10/10/16 at 22:45; Stop 10/11/16 at 22:44; Status DC Acetaminophen (Tylenol) 650 mg PRN Q4HRS PRN PO FEVER Last administered on 10/11 19:09; Start 10/10/16 at 22:45; Stop 10/11/16 at 22:44; Status DC Vancomycin HCl 2 gm/Sodium Chloride 500 ml @ 250 mls/hr 1X ONCE IV Last administered on 10/11/16 00:44; Start 10/10/16 at 23:00; Stop 10/11/16 at 00:59 ; Status DC Vancomycin HCl 1.5 gm/Sodium Chloride 500 ml @ 250 mls/hr Q48H IV ; Start 10/13 at 01:00; Status Cancel Vancomycin HCl 1 each 1X ONCE MC ; Start 10/15/16 at 00:30; Stop 10/15/16 at 00 :31; Status Cancel Ondansetron HCl (Zofran) 4 mg PRN Q6HRS PRN IV NAUSEA/VOMITING; Start 10/11/16 at 09:48; Stop 10/12/16 at 09:47; Status DC Carvedilol (Coreg) 6.25 mg BIDWMEALS PO Last administered on 10/12/16 09:51; Start 10/11/16 at 10:00 Fluoxetine HCl (PROzac) 20 mg DAILY PO Last administered on 10/12/16 09:50; Start 10/11/16 at 10:00 Acetaminophen/ Hydrocodone Bitart (Lortab 7.5/325) 1 tab PRN Q4HRS PRN PO PAIN Last administered on 10/12/16 05:23; Start 10/11/16 at 10:00 Sevelamer Carbonate (Renvela) 800 mg TIDWMEALS PO Last administered on 12:29; Start 10/11/16 at 12:00 Tamsulosin HCl (Flomax) 0.4 mg DAILY PO Last administered on 10/12/16 09:50; Start 10/11/16 at 10:00 Bumetanide (Bumex) 1 mg DAILY PO Last administered on 10/12/16 09:50; Start at 10:00 Gabapentin (Neurontin) 400 mg TID PO Last administered on 10/12/16 09:50; Start 10/11/16 at 10:15 Glimepiride (Amaryl) 4 mg DAILYWBKFT PO Last administered on 10/12/16 09:50; Start 10/12/16 at 08:00 Nystatin (Nystop) 1 gabrielle TID TP Last administered on 10/12/16 09:52; Start 02/15 at 14:00; Stop 10/12/16 at 13:27; Status DC Insulin Aspart (NovoLOG) 0-9 UNITS TIDWMEALS SQ Last administered on 10/12/16 12:30; Start 10/11/16 at 12:00 Dextrose (Dextrose 50%-Water Syringe) 12.5 gm PRN Q15MIN PRN IV SEE COMMENTS; Start 10/11/16 at 10:00 Sodium Chloride 1,000 ml @ 1,000 mls/hr Q1H PRN IV hypotension; Start 10/11/16 at 11:56; Stop 10/11/16 at 17:55; Status DC Albumin Human 200 ml @ 200 mls/hr 1X PRN PRN IV Hypotension; Start 10/11/16 at 12:00; Stop 10/11/16 at 17:59; Status DC Acetaminophen (Tylenol) 500 mg 1X PRN PRN PO MILD PAIN / TEMP; Start 10/11/16 at 12:00; Stop 10/12/16 at 11:59; Status DC Diphenhydramine HCl (Benadryl) 25 mg 1X PRN PRN IV ITCHING; Start 10/11/16 at 12:00; Stop 10/12/16 at 11:59; Status DC Sodium Chloride (Normal Saline Flush) 10 ml 1X PRN PRN IV AP catheter pack; Start 10/11/16 at 12:00; Stop 10/12/16 at 11:59; Status DC Sodium Chloride (Normal Saline Flush) 10 ml 1X PRN PRN IV PRODUCTION CONTROL SCHEDULER catheter pack; Start 10/11/16 at 12:00; Stop 10/12/16 at 11:59; Status DC Sodium Chloride 1,000 ml @ 400 mls/hr Q2H30M PRN IV PATENCY; Start 10/11/16 at 11:56; Stop 10/11/16 at 23:55; Status DC Info (PHARMACY MONITORING -- do not chart) 1 each PRN DAILY PRN MC SEE COMMENTS ; Start 10/11/16 at 12:00; Status Cancel Info (PHARMACY MONITORING -- do not chart) 1 each PRN DAILY PRN MC SEE COMMENTS ; Start 10/11/16 at 12:00 Darbepoetin Manuel (Aranesp) 60 mcg WEEKLYHS SQ Last administered on 10/11/16t 21 :27; Start 10/11/16 at 21:00 Piperacillin Sod/ Tazobactam Sod (Zosyn Per Pharmacy) 1 each PRN DAILY PRN MC SEE COMMENTS; Start 10/11/16 at 13:00 Piperacillin Sod/ Tazobactam Sod 2.25 gm/Sodium Chloride 50 ml @ 100 mls/hr Q8HRS IV Last administered on 10/12/16 05:32; Start 10/11/16 at 14:00 Famotidine (Pepcid) 20 mg QHS IVP Last administered on 10/11/16 21:27; Start 10/11/16 at 21:00; Stop 10/12/16 at 07:43; Status DC Heparin Sodium (Porcine) (Heparin Sq) 5,000 unit Q12HR SQ Last administered on 10/11/16 21:28; Start 10/11/16 at 21:00 Iohexol (Omnipaque 350 Mg/ml) 100 ml 1X ONCE IV ; Start 10/11/16 at 16:00; Stop 10/11/16 at 16:01; Status DC Vancomycin HCl 1 each 1X ONCE MC ; Start 10/13/16 at 05:00; Stop 10/13/16 at 05 :01 Famotidine (Pepcid) 20 mg Q48H IVP ; Start 10/12/16 at 21:00 Nystatin (Nystop) 1 gabrielle TID TP ; Start 10/12/16 at 13:27 Active Scripts Active Reported Tamsulosin Hcl 0.4 Mg Cap.er.24h 0.4 Mg PO DAILY Fluoxetine Hcl 20 Mg Capsule 20 Mg PO DAILY Aspirin 325 Mg Tablet 325 Mg PO DAILY Hydrocodone-Apap 7.5-325 (Hydrocodone Bit/Acetaminophen) 1 Each Tablet 1 Tab PO PRN Q4HRS PRN Renvela (Sevelamer Carbonate) 800 Mg Tablet 800 Mg PO TIDWMEALS Gabapentin 400 Mg Capsule 400 Mg PO TID Carvedilol 6.25 Mg Tablet 6.25 Mg PO DAILY Nystatin 1 Each Powder.ea. 1 Each PO TID Bumetanide 2 Mg Tablet 1 Tab PO DAILY Glimepiride 4 Mg Tablet 4 Mg PO DAILY Acetaminophen 325 Mg Capsule 650 Mg PO Q6HRS PRN Vitals/I & O Vital Sign - Last 24 Hours 10/11/16 10/11/16 10/11/16 10/11/16 15:36 16:30 16:30 16:40 Temp 100.2 101.3 100.2 101.3 Pulse 109 111 111 Resp 18 20 B/P (MAP) 138/69 (92) 112/61 (78) 112/61 Pulse Ox 100 96 O2 Delivery Nasal Cannula Nasal Cannula Nasal Cannula O2 Flow Rate 2.0 2.0 2.0 10/11/16 10/11/16 10/11/16 10/11/16 17:20 18:09 19:00 19:56 Temp 102.5 102.5 Pulse 114 112 110 Resp 22 16 16 10 B/P (MAP) 142/61 (88) 119/59 (79) 118/44 (68) Pulse Ox 95 94 92 94 O2 Delivery Nasal Cannula Nasal Cannula Room Air Room Air O2 Flow Rate 2.0 2.0 10/11/16 10/11/16 10/11/16 10/11/16 20:00 20:00 21:00 22:00 Temp 100.7 100.7 Pulse 104 99 95 Resp 16 15 14 B/P (MAP) 84/49 (61) 106/58 (74) 114/55 (74) Pulse Ox 100 100 95 O2 Delivery Nasal Cannula Nasal Cannula Nasal Cannula Nasal Cannula O2 Flow Rate 2.0 2.0 2.0 2.0 10/11/16 10/11/16 10/11/16 10/12/16 23:00 23:33 23:33 00:00 Temp 99.3 99.3 Pulse 94 93 Resp 16 12 16 B/P (MAP) 105/53 (70) 95/41 (59) Pulse Ox 96 100 100 O2 Delivery Nasal Cannula Nasal Cannula Nasal Cannula Nasal Cannula O2 Flow Rate 2.0 2.0 2.0 2.0 10/12/16 10/12/16 10/12/16 10/12/16 00:33 01:00 02:00 03:00 Pulse 100 102 101 Resp 16 15 18 18 B/P (MAP) 116/57 (76) 105/55 (72) 110/83 (92) Pulse Ox 97 98 98 99 O2 Delivery Nasal Cannula Nasal Cannula Nasal Cannula O2 Flow Rate 2.0 2.0 2.0 2.0 10/12/16 10/12/16 10/12/16 10/12/16 04:00 04:00 05:00 05:23 Temp 98.9 98.9 Pulse 121 117 Resp 16 16 16 B/P (MAP) 121/58 (79) 123/65 (84) Pulse Ox 97 97 97 O2 Delivery Nasal Cannula Nasal Cannula Nasal Cannula Nasal Cannula O2 Flow Rate 2.0 2.0 2.0 2.0 10/12/16 10/12/16 10/12/16 10/12/16 06:01 07:00 07:00 08:00 Pulse 116 102 Resp 18 16 B/P (MAP) 124/59 (80) 115/55 (75) Pulse Ox 97 97 O2 Delivery Nasal Cannula Room Air Nasal Cannula Nasal Cannula O2 Flow Rate 2.0 2.0 2.0 10/12/16 10/12/16 10/12/16 10/12/16 08:00 09:00 09:51 10:00 Temp 100.7 100.7 Pulse 107 98 99 102 Resp 17 16 B/P (MAP) 118/59 (78) 124/63 (83) 124/63 96/49 (65) Pulse Ox 95 97 97 O2 Delivery Nasal Cannula Nasal Cannula Nasal Cannula O2 Flow Rate 2.0 2.0 2.0 10/12/16 10/12/16 10/12/16 10/12/16 11:00 12:00 12:00 13:00 Temp 100.2 100.2 Pulse 96 98 106 Resp 18 16 19 B/P (MAP) 90/45 (60) 93/44 (60) 104/50 (68) Pulse Ox 96 97 95 O2 Delivery Nasal Cannula Nasal Cannula Nasal Cannula Nasal Cannula O2 Flow Rate 2.0 2.0 2.0 2.0 Intake and Output 10/11/16 10/11/16 10/12/16 15:00 23:00 07:00 Intake Total 50 ml 200 ml Output Total 100 ml 50 ml Balance -50 ml 150 ml POONAM CHRISTOPHER III DO Oct 12, 2016 14:14
[2016-10-12] MEDS ORDERED: ACETAMINOPHEN 325 MG TABLET. PO PRN (19:45)
[2016-10-12] MEDS: FAMOTIDINE 20 MG/2 ML VIAL IVP SCH (20:11)
[2016-10-12] MEDS ORDERED: ONDANSETRON PF 4 MG/2 ML VIAL. IV PRN (20:30)
[2016-10-13] VITALS (23 sets, daily range): BP systolic 81–128; BP diastolic 42–68
[2016-10-13] MEDS ORDERED: VANCOMYCIN 1.5 GM in IV NORMAL SALINE 500ML BAG 500 ML IV SCH (01:00)
[2016-10-13 04:16] LABS: HEMATOCRIT 29.6 % (36.0-47.0); HEMOGLOBIN 9.7 g/dL (12.0-15.5); RED BLOOD COUNT 3.07 x10^6/uL (3.50-5.40); RED CELL DISTRIBUTION WIDTH 18.6 % (11.5-14.5); WHITE BLOOD COUNT 11.9 x10^3/uL (4.0-11.0)
[2016-10-13 04:27] LABS: CALCIUM 8.1 mg/dL (8.5-10.1); CREATININE 4.6 mg/dL (0.6-1.0); GFR 9.9; POTASSIUM 4.5 mmol/L (3.5-5.1)
[2016-10-13] MEDS ORDERED: VANCOMYCIN RANDOM LEVEL. MC ONE (05:00)
[2016-10-13] MEDS: PIPERACILLIN/TAZOBACTAM 2.25 GM in IV NORMAL SALINE 50ML 50 ML IV SCH ×3 (06:05→20:56)
[2016-10-13] MEDS ORDERED: ONDANSETRON PF 4 MG/2 ML VIAL. ONE (07:31)
[2016-10-13] MEDS ORDERED: PROPOFOL 20 ML IV ONE (07:31)
[2016-10-13] MEDS ORDERED: MIDAZOLAM HCL/PF 2 MG/2 ML VIAL. ONE (07:31)
[2016-10-13] MEDS ORDERED: LIDOCAINE 2% PF Vial for OR 5 ML VIAL. ONE (07:31)
[2016-10-13] MEDS ORDERED: fentaNYL PF VIAL 100 MCG/2 ML VIAL ONE (07:32)
[2016-10-13] MEDS ORDERED: IV RINGERS,LACTATED 1000ML 1,000 ML IV SCH (07:43)
[2016-10-13] MEDS ORDERED: HYDROmorphone 2 MG/ML VIAL IV PRN (07:45)
[2016-10-13] MEDS ORDERED: LIDOCAINE 1% 1 ML SYRINGE. ID PRN (07:45)
[2016-10-13] MEDS ORDERED: ONDANSETRON PF 4 MG/2 ML VIAL. IV PRN (07:45)
[2016-10-13] MEDS ORDERED: MORPHINE SULFATE 2 MG/ML DISP.SYRIN. IV PRN (07:45)
[2016-10-13] MEDS ORDERED: PROCHLORPERAZINE 10 MG/2 ML VIAL. IV PRN (07:45)
[2016-10-13] MEDS ORDERED: fentaNYL PF VIAL 100 MCG/2 ML VIAL IV PRN ×2 (07:45)
[2016-10-13] MEDS: GLIMEPIRIDE 2 MG TABLET. PO SCH (07:52)
[2016-10-13] MEDS: INSULIN ASPART 300 UNITS/3 ML INSULN.PEN SQ SCH ×3 (08:00→16:50)
[2016-10-13] MEDS: CARVEDILOL 6.25 MG TABLET. PO SCH ×2 (08:00→16:44)
[2016-10-13] MEDS: SEVELAMER CARBONATE 800 MG TABLET. PO SCH ×3 (08:00→16:44)
[2016-10-13] MEDS ORDERED: DEXAMETHASONE SOD PHOS 20 MG/5 ML VIAL. ONE (08:06)
--- NOTE | 2016-10-13 08:06 | PDOC ---
SURGICAL PROGRESS NOTE Subjective Pre-Op Note 56 yo F with right groin post op abscess TO OR for incision and drainage R/B/A d/w pt pt much more clear today Vital Signs Vital Signs Date Time Temp Pulse Resp B/P (MAP) Pulse Ox O2 Delivery O2 Flow Rate FiO2 10/13/16 06:12 91 18 92/48 (63) 99 Nasal Cannula 2.0 10/13/16 04:00 98.5 98.5 I&O Intake and Output 10/13/16 07:00 Intake Total 250 ml Output Total 0 ml Balance 250 ml Intake Oral 200 ml IV Total 50 ml Output Urine Total 0 ml Labs Laboratory Tests Test 10/11/16 10:50 10/11/16 15:35 10/11/16 16:02 10/11/16 16:20 White Blood Count 16.2 x10^3/uL (4.0-11.0) Red Blood Count 3.26 x10^6/uL (3.50-5.40) Hemoglobin 10.3 g/dL (12.0-15.5) Hematocrit 31.4 % (36.0-47.0) Mean Corpuscular Volume 96 fL (79-100) Mean Corpuscular Hemoglobin 32 pg (25-35) Mean Corpuscular Hemoglobin Concent 33 g/dL (31-37) Red Cell Distribution Width 19.0 % (11.5-14.5) Platelet Count 127 x10^3/uL (140-400) Neutrophils (%) (Auto) 88 % (31-73) Lymphocytes (%) (Auto) 6 % (24-48) Monocytes (%) (Auto) 5 % (0-9) Eosinophils (%) (Auto) 1 % (0-3) Basophils (%) (Auto) 1 % (0-3) Neutrophils # (Auto) 14.3 x10^3uL (1.8-7.7) Lymphocytes # (Auto) 0.9 x10^3/uL (1.0-4.8) Monocytes # (Auto) 0.8 x10^3/uL (0.0-1.1) Eosinophils # (Auto) 0.1 x10^3/uL (0.0-0.7) Basophils # (Auto) 0.1 x10^3/uL (0.0-0.2) Segmented Neutrophils % 81 % (35-66) Band Neutrophils % 12 % (0-9) Lymphocytes % 3 % (24-48) Monocytes % 4 % (0-10) Platelet Estimate Decreased (ADEQUATE) Polychromasia Slight Anisocytosis Slight O2 Saturation 93 % (92-99) Arterial Blood pH 7.45 (7.35-7.45) Arterial Blood pCO2 at Patient Temp 44 mmHg (35-46) Arterial Blood pO2 at Patient Temp 66 mmHg (75-108) Arterial Blood HCO3 30 mmol/L (21-28) Arterial Blood Base Excess 5 mmol/L (-3-3) FiO2 28 Glucose (Fingerstick) 132 mg/dL (70-99) Lactic Acid Level 1.3 mmol/L (0.4-2.0) Test 10/11/16 17:30 10/11/16 21:25 10/12/16 12:23 10/12/16 17:35 Glucose (Fingerstick) 148 mg/dL (70-99) 144 mg/dL (70-99) 163 mg/dL (70-99) 123 mg/dL (70-99) Test 10/13/16 03:41 10/13/16 04:00 10/13/16 07:57 White Blood Count 11.9 x10^3/uL (4.0-11.0) Red Blood Count 3.07 x10^6/uL (3.50-5.40) Hemoglobin 9.7 g/dL (12.0-15.5) Hematocrit 29.6 % (36.0-47.0) Mean Corpuscular Volume 96 fL (79-100) Mean Corpuscular Hemoglobin 32 pg (25-35) Mean Corpuscular Hemoglobin Concent 33 g/dL (31-37) Red Cell Distribution Width 18.6 % (11.5-14.5) Platelet Count 125 x10^3/uL (140-400) Random Vancomycin Level 15.5 mcg/mL Sodium Level 135 mmol/L (136-145) Potassium Level 4.5 mmol/L (3.5-5.1) Chloride Level 97 mmol/L (98-107) Carbon Dioxide Level 24 mmol/L (21-32) Anion Gap 14 (6-14) Blood Urea Nitrogen 49 mg/dL (7-20) Creatinine 4.6 mg/dL (0.6-1.0) Estimated GFR (Cockcroft-Gault) 9.9 Glucose Level 43 mg/dL (70-99) Calcium Level 8.1 mg/dL (8.5-10.1) Glucose (Fingerstick) 123 mg/dL (70-99) Laboratory Tests Test 10/12/16 12:23 10/12/16 17:35 10/13/16 03:41 10/13/16 04:00 Glucose (Fingerstick) 163 mg/dL (70-99) 123 mg/dL (70-99) White Blood Count 11.9 x10^3/uL (4.0-11.0) Red Blood Count 3.07 x10^6/uL (3.50-5.40) Hemoglobin 9.7 g/dL (12.0-15.5) Hematocrit 29.6 % (36.0-47.0) Mean Corpuscular Volume 96 fL (79-100) Mean Corpuscular Hemoglobin 32 pg (25-35) Mean Corpuscular Hemoglobin Concent 33 g/dL (31-37) Red Cell Distribution Width 18.6 % (11.5-14.5) Platelet Count 125 x10^3/uL (140-400) Random Vancomycin Level 15.5 mcg/mL Sodium Level 135 mmol/L (136-145) Potassium Level 4.5 mmol/L (3.5-5.1) Chloride Level 97 mmol/L (98-107) Carbon Dioxide Level 24 mmol/L (21-32) Anion Gap 14 (6-14) Blood Urea Nitrogen 49 mg/dL (7-20) Creatinine 4.6 mg/dL (0.6-1.0) Estimated GFR (Cockcroft-Gault) 9.9 Glucose Level 43 mg/dL (70-99) Calcium Level 8.1 mg/dL (8.5-10.1) Test 10/13/16 07:57 Glucose (Fingerstick) 123 mg/dL (70-99) ROGELIO COLLINS MD Oct 13, 2016 08:06
[2016-10-13] MEDS: VANCOMYCIN PER PHARMACY MC PRN (08:21)
[2016-10-13] MEDS ORDERED: SEVOFLURANE 31 TO 60 MINUTES. IH ONE ×2 (08:37→08:41)
[2016-10-13] MEDS ORDERED: VANCOMYCIN 500 MG in IV NORMAL SALINE 100ML 100 ML IV ONE (09:00)
[2016-10-13] MEDS: MORPHINE SULFATE 4 MG/ML DISP.SYRIN. IV PRN (09:25)
[2016-10-13] MEDS ORDERED: 0.9 % SODIUM CHLORIDE 10 ML DISP.SYRIN. IV PRN (09:30)
--- NOTE | 2016-10-13 09:42 | PDOC4 ---
OPERATIVE NOTE Date: Date: Oct 13, 2016 Pre-Op Diagnosis: right groin abscess Post-Op Diagnosis: same Procedure Performed: Incision and drainage of right groin abscess Surgeon: Oliver Collins Anesthesia Type: General Blood Loss: 10 Specimans Obtained: cultures and debris Findings: large right groin abscess with purulent material Complications: none Operative Note: Patient was taken to the OR, induced under anesthesia and prepped over the right groin. The previous incision was well healed and intact. Large amount of induration and fluctuance in the medical area. An incision was made with cautery. Large amount of purulent material was evacuated. Cultures were obtained. The wound was copiously irrigated and necrotic tissue was evacuated. A counter incision was made anteriorly and nanci drain was placed and secured with 3 0 nylon. The wound was packed with iodoform gauze. Sterile dressing was placed. Patient tolerated procedure well and sent to PACU. All counts were correct, there was no immediate complications. OLIVER COLLINS MD Oct 13, 2016 09:42
--- NOTE | 2016-10-13 09:57 | PDOC ---
Infectious Disease Note Subjective Subjective Fever Tmax 102.6 c/o persistent right groin pain, worse with touch or movement ROS ROS GEN: Denies chills HEENT: Denies sore throat CV: Denies chest pain RESP: Denies shortness of air, cough GI: Denies n/v/d Vital Sign Vital Signs Vital Signs Date Time Temp Pulse Resp B/P (MAP) Pulse Ox O2 Delivery O2 Flow Rate FiO2 10/13/16 09:35 91 20 107/52 99 Nasal Cannula 2 10/13/16 08:55 97.9 97.9 Physical Exam PHYSICAL EXAM GENERAL: Lying down, NAD HEENT: Oral mucosa pink and dry. LUNGS: Clear anteriorly. HEART: Normal S1 and S2. No murmur appreciated. ABDOMEN: Obese. Bowel sounds are present, soft. No grimace or guarding to palpation. EXTREMITIES: No gross edema or cyanosis. Right upper extremity AV fistula unremarkable with thrill and bruit present. SKIN: Without rash. Right groin post-op dressing dry and intact [employer]ELOPER: Arouses to name, answers few simple questions appropriately HDC area without redness, swelling or drainage and small area incision well approximated with sutures intact Labs Lab Laboratory Tests Test 10/12/16 12:23 10/12/16 17:35 10/13/16 03:41 10/13/16 04:00 Glucose (Fingerstick) 163 mg/dL (70-99) 123 mg/dL (70-99) White Blood Count 11.9 x10^3/uL (4.0-11.0) Red Blood Count 3.07 x10^6/uL (3.50-5.40) Hemoglobin 9.7 g/dL (12.0-15.5) Hematocrit 29.6 % (36.0-47.0) Mean Corpuscular Volume 96 fL (79-100) Mean Corpuscular Hemoglobin 32 pg (25-35) Mean Corpuscular Hemoglobin Concent 33 g/dL (31-37) Red Cell Distribution Width 18.6 % (11.5-14.5) Platelet Count 125 x10^3/uL (140-400) Random Vancomycin Level 15.5 mcg/mL Sodium Level 135 mmol/L (136-145) Potassium Level 4.5 mmol/L (3.5-5.1) Chloride Level 97 mmol/L (98-107) Carbon Dioxide Level 24 mmol/L (21-32) Anion Gap 14 (6-14) Blood Urea Nitrogen 49 mg/dL (7-20) Creatinine 4.6 mg/dL (0.6-1.0) Estimated GFR (Cockcroft-Gault) 9.9 Glucose Level 43 mg/dL (70-99) Calcium Level 8.1 mg/dL (8.5-10.1) Test 10/13/16 07:57 10/13/16 09:31 Glucose (Fingerstick) 123 mg/dL (70-99) 109 mg/dL (70-99) Micro Blood cultures NGTD Objective Assessment Sepsis, POA Cellulitis and abscess right groin near surgical site (11.5 x 7.1 x 4.5 cm on CTA) , s/p I and D, 10/13 Intra-op cultures pending -[facility] Leukocytosis Encephalopathy- waxes and wanes 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 The chart was reviewed. The case was discussed. Agree with the plan of care. ANTONIO BULLARD APRN Oct 13, 2016 09:57 MICHAEL SANTOS MD Oct 13, 2016 14:41
[2016-10-13] MEDS: BUMETANIDE 1 MG TABLET. PO SCH (10:23)
[2016-10-13] MEDS: GABAPENTIN 400 MG CAPSULE. PO SCH ×3 (10:23→20:55)
[2016-10-13] MEDS: FLUoxetine HCL 20 MG CAPSULE PO SCH (10:23)
[2016-10-13] MEDS: TAMSULOSIN 0.4 MG CAP.ER.24H. PO SCH (10:23)
[2016-10-13] MEDS: HYDROcodone/APAP 7.5/325MG 1 TAB TABLET PO PRN ×2 (10:23→16:44)
[2016-10-13] MEDS: NYSTATIN TOPICAL POWDER 15GM BOTTLE. TP SCH ×3 (10:24→20:55)
[2016-10-13] MEDS: HEPARIN PF for SUB-Q USE 5,000 UNIT/0.5 ML VIAL. SQ SCH ×2 (10:28→20:57)
--- NOTE | 2016-10-13 11:30 | PDOC ---
PROGRESS NOTES Chief Complaint Chief Complaint CC: Right groin abscess, fever Sepsis -chronic renal failure -CAD -CHF -HTN -Hyperlipidemia History of Present Illness History of Present Illness 56 y/o F with CC right groin abscess, fever pt was seen in the ICU in NAD no NVD pt was resting in recliner and complained of no pain I&D this morning pt Cr was 4.6 (eGFR 9.9) U/s showed right groin hematoma as per Benjamin Palencia recommends IR to replace tunnel dialysis cath, consult [facility] if needed cont vanco/rocephin, add zosyn cont HD alycia nasal MRSA + Vitals Vitals Vital Signs Date Time Temp Pulse Resp B/P (MAP) Pulse Ox O2 Delivery O2 Flow Rate FiO2 10/13/16 11:07 89 111/62 (78) 10/13/16 11:04 12 97 Nasal Cannula 2.0 10/13/16 10:15 97.7 97.7 Physical Exam General: Alert, Oriented X3, Cooperative, No acute distress Heart: Regular rate, Normal S1, Normal S2, Other (tachycardic,) Lungs: Clear, Other (No RRW) Abdomen: Normal bowel sounds, Soft, No tenderness Extremities: No clubbing, Other (right medial groin hematoma is stable, cellulitis is improved, but the patient is still markedly tender to palpation over this area, there is no skin breakdown, there is no ulceration, there is no gangrenous changes, there is no crepitance overlying the hematoma, she has a palpable thrill in her right upper extremity AV fistula which is still maturing) Skin: No rashes, No breakdown, Other (right groin TTP, healed incision) Labs LABS Laboratory Tests Test 10/12/16 12:23 10/12/16 17:35 10/13/16 03:41 10/13/16 04:00 Glucose (Fingerstick) 163 mg/dL (70-99) 123 mg/dL (70-99) White Blood Count 11.9 x10^3/uL (4.0-11.0) Red Blood Count 3.07 x10^6/uL (3.50-5.40) Hemoglobin 9.7 g/dL (12.0-15.5) Hematocrit 29.6 % (36.0-47.0) Mean Corpuscular Volume 96 fL (79-100) Mean Corpuscular Hemoglobin 32 pg (25-35) Mean Corpuscular Hemoglobin Concent 33 g/dL (31-37) Red Cell Distribution Width 18.6 % (11.5-14.5) Platelet Count 125 x10^3/uL (140-400) Random Vancomycin Level 15.5 mcg/mL Sodium Level 135 mmol/L (136-145) Potassium Level 4.5 mmol/L (3.5-5.1) Chloride Level 97 mmol/L (98-107) Carbon Dioxide Level 24 mmol/L (21-32) Anion Gap 14 (6-14) Blood Urea Nitrogen 49 mg/dL (7-20) Creatinine 4.6 mg/dL (0.6-1.0) Estimated GFR (Cockcroft-Gault) 9.9 Glucose Level 43 mg/dL (70-99) Calcium Level 8.1 mg/dL (8.5-10.1) Test 10/13/16 07:57 10/13/16 09:31 Glucose (Fingerstick) 123 mg/dL (70-99) 109 mg/dL (70-99) Review of Systems Review of Systems pt complained of weakness no NVD Assessment and Plan Assessmemt and Plan CC: Right groin abscess, fever Sepsis -chronic renal failure -CAD -CHF -HTN -Hyperlipidemia PLAN -cont electrolytes and labs -cont vanco/rocephin, add zosyn -consult IR Nicole if needed as per Thors -I&D this morning -HD alycia -cont cardiac monitoring -encourage fluid intake Problems: Comment Review of Relevant I have reviewed the following items nelda (where applicable) has been applied. Labs Laboratory Tests Test 10/11/16 15:35 10/11/16 16:02 10/11/16 16:20 10/11/16 17:30 O2 Saturation 93 % (92-99) Arterial Blood pH 7.45 (7.35-7.45) Arterial Blood pCO2 at Patient Temp 44 mmHg (35-46) Arterial Blood pO2 at Patient Temp 66 mmHg (75-108) Arterial Blood HCO3 30 mmol/L (21-28) Arterial Blood Base Excess 5 mmol/L (-3-3) FiO2 28 Glucose (Fingerstick) 132 mg/dL (70-99) 148 mg/dL (70-99) Lactic Acid Level 1.3 mmol/L (0.4-2.0) Test 10/11/16 21:25 10/12/16 12:23 10/12/16 17:35 10/13/16 03:41 Glucose (Fingerstick) 144 mg/dL (70-99) 163 mg/dL (70-99) 123 mg/dL (70-99) White Blood Count 11.9 x10^3/uL (4.0-11.0) Red Blood Count 3.07 x10^6/uL (3.50-5.40) Hemoglobin 9.7 g/dL (12.0-15.5) Hematocrit 29.6 % (36.0-47.0) Mean Corpuscular Volume 96 fL (79-100) Mean Corpuscular Hemoglobin 32 pg (25-35) Mean Corpuscular Hemoglobin Concent 33 g/dL (31-37) Red Cell Distribution Width 18.6 % (11.5-14.5) Platelet Count 125 x10^3/uL (140-400) Random Vancomycin Level 15.5 mcg/mL Test 10/13/16 04:00 10/13/16 07:57 10/13/16 09:31 Sodium Level 135 mmol/L (136-145) Potassium Level 4.5 mmol/L (3.5-5.1) Chloride Level 97 mmol/L (98-107) Carbon Dioxide Level 24 mmol/L (21-32) Anion Gap 14 (6-14) Blood Urea Nitrogen 49 mg/dL (7-20) Creatinine 4.6 mg/dL (0.6-1.0) Estimated GFR (Cockcroft-Gault) 9.9 Glucose Level 43 mg/dL (70-99) Calcium Level 8.1 mg/dL (8.5-10.1) Glucose (Fingerstick) 123 mg/dL (70-99) 109 mg/dL (70-99) Laboratory Tests Test 10/12/16 12:23 10/12/16 17:35 10/13/16 03:41 10/13/16 04:00 Glucose (Fingerstick) 163 mg/dL (70-99) 123 mg/dL (70-99) White Blood Count 11.9 x10^3/uL (4.0-11.0) Red Blood Count 3.07 x10^6/uL (3.50-5.40) Hemoglobin 9.7 g/dL (12.0-15.5) Hematocrit 29.6 % (36.0-47.0) Mean Corpuscular Volume 96 fL (79-100) Mean Corpuscular Hemoglobin 32 pg (25-35) Mean Corpuscular Hemoglobin Concent 33 g/dL (31-37) Red Cell Distribution Width 18.6 % (11.5-14.5) Platelet Count 125 x10^3/uL (140-400) Random Vancomycin Level 15.5 mcg/mL Sodium Level 135 mmol/L (136-145) Potassium Level 4.5 mmol/L (3.5-5.1) Chloride Level 97 mmol/L (98-107) Carbon Dioxide Level 24 mmol/L (21-32) Anion Gap 14 (6-14) Blood Urea Nitrogen 49 mg/dL (7-20) Creatinine 4.6 mg/dL (0.6-1.0) Estimated GFR (Cockcroft-Gault) 9.9 Glucose Level 43 mg/dL (70-99) Calcium Level 8.1 mg/dL (8.5-10.1) Test 10/13/16 07:57 10/13/16 09:31 Glucose (Fingerstick) 123 mg/dL (70-99) 109 mg/dL (70-99) Microbiology 10/11/16 Blood Culture - Preliminary, Resulted NO GROWTH AFTER 1 DAY Medications Current Medications Hydromorphone HCl (Dilaudid) 1 mg 1X ONCE IV Last administered on 10/10/16 20 :30; Start 10/10/16 at 20:00; Stop 10/10/16 at 20:01; Status DC Ondansetron HCl (Zofran) 4 mg 1X ONCE IV Last administered on 10/10/16 20:30 ; Start 10/10/16 at 20:00; Stop 10/10/16 at 20:01; Status DC Vancomycin HCl (Vanco Per Pharmacy) 1 each PRN DAILY PRN MC SEE COMMENTS Last administered on 10/13/16 08:21; Start 10/11/16 at 00:00 Ceftriaxone Sodium 50 ml @ 100 mls/hr 1X ONCE IV Last administered on 02:38; Start 10/10/16 at 23:00; Stop 10/10/16 at 23:29; Status DC Calcium Gluconate 1000 mg/Sodium Chloride 110 ml @ 220 mls/hr 1X ONCE IV Last administered on 10/10/16 23:30; Start 10/10/16 at 23:00; Stop 10/10/16 at 23:29; Status DC Insulin Human Regular (NovoLIN R VIAL) 10 unit 1X ONCE IV Last administered on 10/11/16 00:41; Start 10/10/16 at 23:00; Stop 10/10/16 at 23:01; Status DC Dextrose (Dextrose 50%-Water Syringe) 25 gm 1X ONCE IV Last administered on 00:37; Start 10/10/16 at 23:00; Stop 10/10/16 at 23:01; Status DC Sodium Bicarbonate 50 meq 1X ONCE IV Last administered on 10/11/16 00:34; Start 10/10/16 at 23:00; Stop 10/10/16 at 23:01; Status DC Ondansetron HCl (Zofran) 4 mg PRN Q8HRS PRN IV NAUSEA/VOMITING; Start 10/10/16 at 22:45; Stop 10/11/16 at 09:49; Status DC Morphine Sulfate 4 mg PRN Q2HR PRN IV PAIN Last administered on 10/11/16 19:56 ; Start 10/10/16 at 22:45; Stop 10/11/16 at 22:44; Status DC Acetaminophen (Tylenol) 650 mg PRN Q4HRS PRN PO FEVER Last administered on 10/11 19:09; Start 10/10/16 at 22:45; Stop 10/11/16 at 22:44; Status DC Vancomycin HCl 2 gm/Sodium Chloride 500 ml @ 250 mls/hr 1X ONCE IV Last administered on 10/11/16 00:44; Start 10/10/16 at 23:00; Stop 10/11/16 at 00:59 ; Status DC Vancomycin HCl 1.5 gm/Sodium Chloride 500 ml @ 250 mls/hr Q48H IV ; Start 10/13 at 01:00; Status Cancel Vancomycin HCl 1 each 1X ONCE MC ; Start 10/15/16 at 00:30; Stop 10/15/16 at 00 :31; Status Cancel Ondansetron HCl (Zofran) 4 mg PRN Q6HRS PRN IV NAUSEA/VOMITING; Start 10/11/16 at 09:48; Stop 10/12/16 at 09:47; Status DC Carvedilol (Coreg) 6.25 mg BIDWMEALS PO Last administered on 10/12/16 09:51; Start 10/11/16 at 10:00 Fluoxetine HCl (PROzac) 20 mg DAILY PO Last administered on 10/13/16 10:23; Start 10/11/16 at 10:00 Acetaminophen/ Hydrocodone Bitart (Lortab 7.5/325) 1 tab PRN Q4HRS PRN PO PAIN Last administered on 10/13/16 10:23; Start 10/11/16 at 10:00 Sevelamer Carbonate (Renvela) 800 mg TIDWMEALS PO Last administered on 12:29; Start 10/11/16 at 12:00 Tamsulosin HCl (Flomax) 0.4 mg DAILY PO Last administered on 10/13/16 10:23; Start 10/11/16 at 10:00 Bumetanide (Bumex) 1 mg DAILY PO Last administered on 10/13/16 10:23; Start at 10:00 Gabapentin (Neurontin) 400 mg TID PO Last administered on 10/13/16 10:23; Start 10/11/16 at 10:15 Glimepiride (Amaryl) 4 mg DAILYWBKFT PO Last administered on 10/12/16 09:50; Start 10/12/16 at 08:00 Nystatin (Nystop) 1 gabrielle TID TP Last administered on 10/12/16 09:52; Start 02/15 at 14:00; Stop 10/12/16 at 13:27; Status DC Insulin Aspart (NovoLOG) 0-9 UNITS TIDWMEALS SQ Last administered on 10/12/16 12:30; Start 10/11/16 at 12:00 Dextrose (Dextrose 50%-Water Syringe) 12.5 gm PRN Q15MIN PRN IV SEE COMMENTS Last administered on 10/13/16 07:41; Start 10/11/16 at 10:00 Sodium Chloride 1,000 ml @ 1,000 mls/hr Q1H PRN IV hypotension; Start 10/11/16 at 11:56; Stop 10/11/16 at 17:55; Status DC Albumin Human 200 ml @ 200 mls/hr 1X PRN PRN IV Hypotension; Start 10/11/16 at 12:00; Stop 10/11/16 at 17:59; Status DC Acetaminophen (Tylenol) 500 mg 1X PRN PRN PO MILD PAIN / TEMP; Start 10/11/16 at 12:00; Stop 10/12/16 at 11:59; Status DC Diphenhydramine HCl (Benadryl) 25 mg 1X PRN PRN IV ITCHING; Start 10/11/16 at 12:00; Stop 10/12/16 at 11:59; Status DC Sodium Chloride (Normal Saline Flush) 10 ml 1X PRN PRN IV AP catheter pack; Start 10/11/16 at 12:00; Stop 10/12/16 at 11:59; Status DC Sodium Chloride (Normal Saline Flush) 10 ml 1X PRN PRN IV EMPLOYMENT MANAGER catheter pack; Start 10/11/16 at 12:00; Stop 10/12/16 at 11:59; Status DC Sodium Chloride 1,000 ml @ 400 mls/hr Q2H30M PRN IV PATENCY; Start 10/11/16 at 11:56; Stop 10/11/16 at 23:55; Status DC Info (PHARMACY MONITORING -- do not chart) 1 each PRN DAILY PRN MC SEE COMMENTS ; Start 10/11/16 at 12:00; Status Cancel Info (PHARMACY MONITORING -- do not chart) 1 each PRN DAILY PRN MC SEE COMMENTS ; Start 10/11/16 at 12:00 Darbepoetin Manuel (Aranesp) 60 mcg WEEKLYHS SQ Last administered on 10/11/16t 21 :27; Start 10/11/16 at 21:00 Piperacillin Sod/ Tazobactam Sod (Zosyn Per Pharmacy) 1 each PRN DAILY PRN MC SEE COMMENTS; Start 10/11/16 at 13:00 Piperacillin Sod/ Tazobactam Sod 2.25 gm/Sodium Chloride 50 ml @ 100 mls/hr Q8HRS IV Last administered on 10/13/16t 06:05; Start 10/11/16 at 14:00 Famotidine (Pepcid) 20 mg QHS IVP Last administered on 10/11/16 21:27; Start 10/11/16 at 21:00; Stop 10/12/16 at 07:43; Status DC Heparin Sodium (Porcine) (Heparin Sq) 5,000 unit Q12HR SQ Last administered on 10/13/16 10:28; Start 10/11/16 at 21:00 Iohexol (Omnipaque 350 Mg/ml) 100 ml 1X ONCE IV ; Start 10/11/16 at 16:00; Stop 10/11/16 at 16:01; Status DC Vancomycin HCl 1 each 1X ONCE MC Last administered on 10/13/16 05:00; Start 10/13/16 at 05:00; Stop 10/13/16 at 05:01; Status DC Famotidine (Pepcid) 20 mg Q48H IVP Last administered on 10/12/16 20:11; Start 10/12/16 at 21:00 Nystatin (Nystop) 1 gabrielle TID TP Last administered on 10/13/16 10:24; Start at 13:27 Acetaminophen (Tylenol) 650 mg PRN Q6HRS PRN PO FEVER; Start 10/12/16 at 19:45 Ondansetron HCl (Zofran) 4 mg PRN Q6HRS PRN IV NAUSEA/VOMITING; Start 10/12/16 at 20:30 Morphine Sulfate 4 mg PRN Q4HRS PRN IV PAIN Last administered on 10/13/16 09: 25; Start 10/12/16 at 20:30 Ondansetron HCl (Zofran) 4 mg STK-MED ONCE .ROUTE ; Start 10/13/16 at 07:31; Stop 10/13/16 at 07:32; Status DC Propofol 20 ml @ As Directed STK-MED ONCE IV ; Start 10/13/16 at 07:31; Stop at 07:32; Status DC Lidocaine HCl (Lidocaine Pf 2% Vial) 5 ml STK-MED ONCE .ROUTE ; Start 10/13/16 at 07:31; Stop 10/13/16 at 07:32; Status DC Midazolam HCl (Versed) 2 mg STK-MED ONCE .ROUTE ; Start 10/13/16 at 07:31; Stop 10/13/16 at 07:32; Status DC Fentanyl Citrate (Fentanyl 2ml Vial) 100 mcg STK-MED ONCE .ROUTE ; Start at 07:32; Stop 10/13/16 at 07:33; Status DC Ondansetron HCl (Zofran) 4 mg PRN Q6HRS PRN IV NAUSEA/VOMITING; Start 10/13/16 at 07:45; Stop 10/14/16 at 07:44 Fentanyl Citrate (Fentanyl 2ml Vial) 25 mcg PRN Q5MIN PRN IV MILD PAIN; Start 10/13/16 at 07:45; Stop 10/14/16 at 07:44 Fentanyl Citrate (Fentanyl 2ml Vial) 50 mcg PRN Q5MIN PRN IV MODERATE PAIN; Start 10/13/16 at 07:45; Stop 10/14/16 at 07:44 Morphine Sulfate 1 mg PRN Q10MIN PRN IV SEVERE PAIN; Start 10/13/16 at 07:45; Stop 10/14/16 at 07:44 Ringer's Solution 1,000 ml @ 30 mls/hr Q24H IV ; Start 10/13/16 at 07:43; Stop 10/13/16 at 19:42 Lidocaine HCl 2 ml PRN 1X PRN ID PRIOR TO IV START; Start 10/13/16 at 07:45; Stop 10/14/16 at 07:44 Hydromorphone HCl (Dilaudid) 0.5 mg PRN Q10MIN PRN IV SEV PAIN, Second choice; Start 10/13/16 at 07:45; Stop 10/14/16 at 07:44 Prochlorperazine Edisylate (Compazine) 5 mg PACU PRN PRN IV NAUSEA, MRX1; Start 10/13/16 at 07:45; Stop 10/14/16 at 07:44 Vancomycin HCl 500 mg/Sodium Chloride 100 ml @ 100 mls/hr 1X ONCE IV Last administered on 10/13/16t 09:17; Start 10/13/16 at 09:00; Stop 10/13/16 at 09:59 ; Status DC Vancomycin HCl 500 mg/Sodium Chloride 100 ml @ 100 mls/hr QTUTHSA IV ; Start at 16:00 Dexamethasone Sodium Phosphate (Decadron) 20 mg STK-MED ONCE .ROUTE ; Start at 08:06; Stop 10/13/16 at 08:07; Status DC Ephedrine Sulfate (Akovaz) 50 mg STK-MED ONCE .ROUTE ; Start 10/13/16 at 08:22; Stop 10/13/16 at 08:23; Status DC Sevoflurane (Ultane) 30 ml STK-MED ONCE IH ; Start 10/13/16 at 08:37; Stop 10/13 at 08:38; Status DC Sevoflurane (Ultane) 30 ml STK-MED ONCE IH ; Start 10/13/16 at 08:41; Stop 10/13 at 08:42; Status DC Sodium Chloride (Normal Saline Flush) 3 ml QSHIFT PRN IV AFTER MEDS AND BLOOD DRAWS; Start 10/13/16 at 09:30 Active Scripts Active Reported Tamsulosin Hcl 0.4 Mg Cap.er.24h 0.4 Mg PO DAILY Fluoxetine Hcl 20 Mg Capsule 20 Mg PO DAILY Aspirin 325 Mg Tablet 325 Mg PO DAILY Hydrocodone-Apap 7.5-325 (Hydrocodone Bit/Acetaminophen) 1 Each Tablet 1 Tab PO PRN Q4HRS PRN Renvela (Sevelamer Carbonate) 800 Mg Tablet 800 Mg PO TIDWMEALS Gabapentin 400 Mg Capsule 400 Mg PO TID Carvedilol 6.25 Mg Tablet 6.25 Mg PO DAILY Nystatin 1 Each Powder.ea. 1 Each PO TID Bumetanide 2 Mg Tablet 1 Tab PO DAILY Glimepiride 4 Mg Tablet 4 Mg PO DAILY Acetaminophen 325 Mg Capsule 650 Mg PO Q6HRS PRN Vitals/I & O Vital Sign - Last 24 Hours 10/12/16 10/12/16 10/12/16 10/12/16 12:00 12:00 13:00 14:00 Temp 100.2 100.2 Pulse 98 106 106 Resp 16 19 21 B/P (MAP) 93/44 (60) 104/50 (68) 117/57 (77) Pulse Ox 97 95 94 O2 Delivery Nasal Cannula Nasal Cannula Nasal Cannula Nasal Cannula O2 Flow Rate 2.0 2.0 2.0 2.0 10/12/16 10/12/16 10/12/16 10/12/16 15:00 16:00 16:00 17:00 Temp 100.4 100.4 Pulse 108 109 108 Resp 21 19 B/P (MAP) 102/56 (71) 107/57 (74) 120/57 Pulse Ox 98 99 O2 Delivery Nasal Cannula Nasal Cannula Nasal Cannula O2 Flow Rate 2.0 2.0 2.0 10/12/16 10/12/16 10/12/16 10/12/16 17:00 18:00 19:00 20:00 Temp 102.6 102.6 Pulse 108 106 106 Resp 24 22 26 B/P (MAP) 120/57 (78) 110/48 (68) 99/39 (59) Pulse Ox 99 96 O2 Delivery Nasal Cannula Nasal Cannula Room Air Nasal Cannula O2 Flow Rate 2.0 2.0 2.0 10/12/16 10/12/16 10/12/16 10/12/16 20:00 21:00 21:28 21:37 Temp 100.8 100.8 Pulse 102 106 Resp 20 20 18 B/P (MAP) 97/58 (71) 110/46 (67) Pulse Ox 97 98 O2 Delivery Nasal Cannula Nasal Cannula Nasal Cannula O2 Flow Rate 2.0 2.0 2.0 10/12/16 10/12/16 10/12/16 10/13/16 22:00 22:15 22:33 00:06 Temp 98.9 98.9 Pulse 96 91 Resp 20 18 20 B/P (MAP) 82/39 (53) 95/48 (64) 82/45 (57) Pulse Ox 97 99 O2 Delivery Nasal Cannula Nasal Cannula Nasal Cannula O2 Flow Rate 2.0 2.0 2.0 10/13/16 10/13/16 10/13/16 10/13/16 00:08 01:00 02:00 03:00 Pulse 92 88 90 Resp 20 20 20 B/P (MAP) 93/44 (60) 81/42 (55) 100/45 (63) Pulse Ox 97 97 97 O2 Delivery Nasal Cannula Nasal Cannula Nasal Cannula Nasal Cannula O2 Flow Rate 2.0 2.0 2.0 2.0 10/13/16 10/13/16 10/13/16 10/13/16 04:00 04:17 05:00 06:12 Temp 98.5 98.5 Pulse 90 92 91 Resp 20 20 18 B/P (MAP) 81/50 (60) 94/50 (65) 92/48 (63) Pulse Ox 97 99 99 O2 Delivery Nasal Cannula Nasal Cannula Nasal Cannula Nasal Cannula O2 Flow Rate 2.0 2.0 2.0 2.0 10/13/16 10/13/16 10/13/16 10/13/16 08:50 08:55 08:55 09:05 Temp 97.6 97.9 97.6 97.9 Pulse 92 72 Resp 20 14 B/P (MAP) 83/40 101/51 (68) Pulse Ox 96 99 O2 Delivery Simple Mask Mask Simple Mask Mask O2 Flow Rate 10 15.0 15.0 10 10/13/16 10/13/16 10/13/16 10/13/16 09:05 09:19 09:20 09:25 Pulse 90 90 89 Resp 20 14 22 20 B/P (MAP) 102/53 112/53 (72) 112/53 Pulse Ox 100 100 100 100 O2 Delivery Simple Mask Nasal Cannula Nasal Cannula Nasal Cannula O2 Flow Rate 10 2.0 2 2.0 10/13/16 10/13/16 10/13/16 10/13/16 09:34 09:35 09:49 10:04 Pulse 93 91 93 93 Resp 15 20 14 13 B/P (MAP) 107/52 (70) 107/52 118/60 (79) 106/48 (67) Pulse Ox 96 99 96 97 O2 Delivery Nasal Cannula Nasal Cannula Nasal Cannula Nasal Cannula O2 Flow Rate 2.0 2 2.0 2.0 10/13/16 10/13/16 10/13/16 10/13/16 10:08 10:15 10:23 10:34 Temp 97.7 97.7 Pulse 87 Resp 16 B/P (MAP) 97/54 (68) Pulse Ox 97 100 97 O2 Delivery Nasal Cannula Nasal Cannula Nasal Cannula O2 Flow Rate 2.0 2.0 2.0 10/13/16 10/13/16 11:04 11:07 Pulse 90 89 Resp 12 B/P (MAP) 88/56 (67) 111/62 (78) Pulse Ox 97 O2 Delivery Nasal Cannula O2 Flow Rate 2.0 Intake and Output 10/12/16 10/12/16 10/13/16 15:00 23:00 07:00 Intake Total 250 ml 100 ml Output Total 0 ml Balance 250 ml 100 ml ASHWINNIAL K III DO Oct 13, 2016 11:30
--- NOTE | 2016-10-13 12:28 | PDOC ---
SUBJECTIVE ROS F/up ESRD Doing and feeling a little better CVS: no Orthopnea, no CP RESP: no SOB, no RODRIGUEZ GI: no Nausea, no Vomiting : n Dysuria, no Urgency OBJECTIVE Vital Signs Vital Signs Date Time Temp Pulse Resp B/P (MAP) Pulse Ox O2 Delivery O2 Flow Rate FiO2 10/13/16 11:29 97 Nasal Cannula 2.0 10/13/16 11:07 89 111/62 (78) 10/13/16 11:04 12 10/13/16 10:15 97.7 97.7 I & 0 Intake and Output 10/13/16 07:00 Intake Total 350 ml Output Total 0 ml Balance 350 ml Intake Oral 200 ml IV Total 150 ml Output Urine Total 0 ml PHYSICAL EXAM Physical Exam GEN: Awake, Oriented x 3, In no distress EYES: Vision Unchanged, Conjunctiva Normal EN: No EN Drainage, Mucous Membranes moist NECK: no JVD, min JVP, Supple, no Thyromegaly CVS: S1S2, + Murmur, No Gallop, No Rub,no Edema RESP: no Rales, no Rhonchi,no Acc. Muscle Use GI: BS + ve, NO Bruit, Non Tender, Non Distended : no CVA tenderness, no Suprapubic Tenderness DIAGNOSIS/ASSESSMENT Assessment & Plan ESRD: Current fluid and E-lyte status does not necessitate emergent need for dialysis. Will re-evaluate for dialysis in the am and continue on TTSat schedule. ANEMIA; Aranesp as ordered, Transfuse with next HD as needed HTN: Current BP meds as reviewed. See orders for changes. BONE & MINERAL: Follow phos and alter binder regimen as needed based on PO intake Groin Abscess - GPC ntoed - abx per ID Discussed Plan of Care with pt at bedside Problems: COMMENT/RELEVANT DATA Meds Current Medications Medications (Trade) Dose Ordered Sig/Susan Start Time Stop Time Status Last Admin Dose Admin Acetaminophen (Tylenol) 650 mg PRN Q6HRS PRN 10/12/16 19:45 Acetaminophen/ Hydrocodone Bitart (Lortab 7.5/325) 1 tab PRN Q4HRS PRN 10/11/16 10:00 10/13/16 10:23 1 TAB Albumin Human 200 ml @ 200 mls/hr 1X PRN PRN 10/11/16 12:00 10/11/16 17:59 DC Bumetanide (Bumex) 1 mg DAILY 10/11/16 10:00 10/13/16 10:23 1 MG Calcium Gluconate 1000 mg/Sodium Chloride 110 ml @ 220 mls/hr 1X ONCE 10/10/16 23:00 10/10/16 23:29 DC 10/10/16 23:30 220 MLS/HR Carvedilol (Coreg) 6.25 mg BIDWMEALS 10/11/16 10:00 10/12/16 09:51 6.25 MG Ceftriaxone Sodium 50 ml @ 100 mls/hr 1X ONCE 10/10/16 23:00 10/10/16 23:29 DC 10/11/16 02:38 100 MLS/HR Darbepoetin Manuel (Aranesp) 60 mcg WEEKLYHS 10/11/16 21:00 10/11/16 21:27 60 MCG Dexamethasone Sodium Phosphate (Decadron) 20 mg STK-MED ONCE 10/13/16 08:06 10/13/16 08:07 DC Dextrose (Dextrose 50%-Water Syringe) 12.5 gm PRN Q15MIN PRN 10/11/16 10:00 10/13/16 07:41 12.5 GM Diphenhydramine HCl (Benadryl) 25 mg 1X PRN PRN 10/11/16 12:00 10/12/16 11:59 DC Ephedrine Sulfate (Akovaz) 50 mg STK-MED ONCE 10/13/16 08:22 10/13/16 08:23 DC Famotidine (Pepcid) 20 mg Q48H 10/12/16 21:00 10/12/16 20:11 20 MG Fentanyl Citrate (Fentanyl 2ml Vial) 50 mcg PRN Q5MIN PRN 10/13/16 07:45 10/14/16 07:44 Fluoxetine HCl (PROzac) 20 mg DAILY 10/11/16 10:00 10/13/16 10:23 20 MG Gabapentin (Neurontin) 400 mg TID 10/11/16 10:15 10/13/16 10:23 400 MG Glimepiride (Amaryl) 4 mg DAILYWBKFT 10/12/16 08:00 10/12/16 09:50 4 MG Heparin Sodium (Porcine) (Heparin Sq) 5,000 unit Q12HR 10/11/16 21:00 10/13/16 10:28 5,000 UNIT Hydromorphone HCl (Dilaudid) 0.5 mg PRN Q10MIN PRN 10/13/16 07:45 10/14/16 07:44 Info (PHARMACY MONITORING -- do not chart) 1 each PRN DAILY PRN 10/11/16 12:00 Insulin Aspart (NovoLOG) 0-9 UNITS TIDWMEALS 10/11/16 12:00 10/12/16 12:30 4 UNITS Insulin Human Regular (NovoLIN R VIAL) 10 unit 1X ONCE 10/10/16 23:00 10/10/16 23:01 DC 10/11/16 00:41 10 UNIT Iohexol (Omnipaque 350 Mg/ml) 100 ml 1X ONCE 10/11/16 16:00 10/11/16 16:01 DC Lidocaine HCl 2 ml PRN 1X PRN 10/13/16 07:45 10/14/16 07:44 Lidocaine HCl (Lidocaine Pf 2% Vial) 5 ml STK-MED ONCE 10/13/16 07:31 10/13/16 07:32 DC Midazolam HCl (Versed) 2 mg STK-MED ONCE 10/13/16 07:31 10/13/16 07:32 DC Morphine Sulfate 1 mg PRN Q10MIN PRN 10/13/16 07:45 10/14/16 07:44 Nystatin (Nystop) 1 gabrielle TID 10/12/16 13:27 10/13/16 10:24 1 GABRIELLE Ondansetron HCl (Zofran) 4 mg PRN Q6HRS PRN 10/13/16 07:45 10/14/16 07:44 Piperacillin Sod/ Tazobactam Sod (Zosyn Per Pharmacy) 1 each PRN DAILY PRN 10/11/16 13:00 Piperacillin Sod/ Tazobactam Sod 2.25 gm/Sodium Chloride 50 ml @ 100 mls/hr Q8HRS 10/11/16 14:00 10/13/16 06:05 100 MLS/HR Prochlorperazine Edisylate (Compazine) 5 mg PACU PRN PRN 10/13/16 07:45 10/14/16 07:44 Propofol 20 ml @ As Directed STK-MED ONCE 10/13/16 07:31 8/14/17 07:32 DC Ringer's Solution 1,000 ml @ 30 mls/hr Q24H 10/13/16 07:43 10/13/16 19:42 Sevelamer Carbonate (Renvela) 800 mg TIDWMEALS 10/11/16 12:00 10/12/16 12:29 800 MG Sevoflurane (Ultane) 30 ml STK-MED ONCE 10/13/16 08:41 10/13/16 08:42 DC Sodium Bicarbonate 50 meq 1X ONCE 10/10/16 23:00 10/10/16 23:01 DC 10/11/16 00:34 50 MEQ Sodium Chloride (Normal Saline Flush) 3 ml QSHIFT PRN 10/13/16 09:30 Tamsulosin HCl (Flomax) 0.4 mg DAILY 10/11/16 10:00 10/13/16 10:23 0.4 MG Vancomycin HCl (Vanco Per Pharmacy) 1 each PRN DAILY PRN 10/11/16 00:00 10/13/16 08:21 1 EACH Vancomycin HCl 1.5 gm/Sodium Chloride 500 ml @ 250 mls/hr Q48H 10/13/16 01:00 Cancel Vancomycin HCl 500 mg/Sodium Chloride 100 ml @ 100 mls/hr QTUTHSA 10/14/16 16:00 Vancomycin HCl 2 gm/Sodium Chloride 500 ml @ 250 mls/hr 1X ONCE 10/10/16 23:00 10/11/16 00:59 DC 10/11/16 00:44 250 MLS/HR Lab Laboratory Tests Test 10/12/16 12:23 10/12/16 17:35 10/13/16 03:41 10/13/16 04:00 Glucose (Fingerstick) 163 mg/dL (70-99) 123 mg/dL (70-99) White Blood Count 11.9 x10^3/uL (4.0-11.0) Red Blood Count 3.07 x10^6/uL (3.50-5.40) Hemoglobin 9.7 g/dL (12.0-15.5) Hematocrit 29.6 % (36.0-47.0) Mean Corpuscular Volume 96 fL (79-100) Mean Corpuscular Hemoglobin 32 pg (25-35) Mean Corpuscular Hemoglobin Concent 33 g/dL (31-37) Red Cell Distribution Width 18.6 % (11.5-14.5) Platelet Count 125 x10^3/uL (140-400) Random Vancomycin Level 15.5 mcg/mL Sodium Level 135 mmol/L (136-145) Potassium Level 4.5 mmol/L (3.5-5.1) Chloride Level 97 mmol/L (98-107) Carbon Dioxide Level 24 mmol/L (21-32) Anion Gap 14 (6-14) Blood Urea Nitrogen 49 mg/dL (7-20) Creatinine 4.6 mg/dL (0.6-1.0) Estimated GFR (Cockcroft-Gault) 9.9 Glucose Level 43 mg/dL (70-99) Calcium Level 8.1 mg/dL (8.5-10.1) Test 10/13/16 07:57 10/13/16 09:31 10/13/16 11:27 Glucose (Fingerstick) 123 mg/dL (70-99) 109 mg/dL (70-99) 104 mg/dL (70-99) GANGA TANG MD Oct 13, 2016 12:28
[2016-10-14] VITALS (8 sets, daily range): BP systolic 102–117; BP diastolic 49–79
[2016-10-14] MEDS: HYDROcodone/APAP 7.5/325MG 1 TAB TABLET PO PRN ×4 (04:27→20:50)
[2016-10-14] MEDS: PIPERACILLIN/TAZOBACTAM 2.25 GM in IV NORMAL SALINE 50ML 50 ML IV SCH ×3 (06:23→22:59)
--- NOTE | 2016-10-14 07:56 | PDOC ---
Infectious Disease Note Subjective Subjective Fever Tmax 102.6 c/o persistent right groin pain, worse with touch or movement ROS ROS GEN: Denies fevers, chills, sweats HEENT: Denies blurred vision, sore throat CV: Denies chest pain RESP: Denies shortness of air, cough GI: Denies n/v/d NEURO: Denies confusion, dizziness MSK: Denies weakness, joint pain/swelling Vital Sign Vital Signs Vital Signs Date Time Temp Pulse Resp B/P (MAP) Pulse Ox O2 Delivery O2 Flow Rate FiO2 10/14/16 05:30 21 97 Nasal Cannula 2.0 10/14/16 04:00 79 111/62 (78) 10/14/16 00:00 98.2 98.2 Physical Exam PHYSICAL EXAM GENERAL: Lying down, NAD, Looks ok HEENT: Oral mucosa pink and dry. LUNGS: Clear anteriorly. HEART: Normal S1 and S2. No murmur appreciated. ABDOMEN: Obese. Bowel sounds are present, soft. No grimace or guarding to palpation. EXTREMITIES: No gross edema or cyanosis. Right upper extremity AV fistula unremarkable with thrill and bruit present. SKIN: Without rash. 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 HDC area without redness, swelling or drainage and small area incision well approximated with sutures intact Labs Lab Laboratory Tests Test 10/13/16 07:57 10/13/16 09:31 10/13/16 11:27 10/13/16 16:32 Glucose (Fingerstick) 123 mg/dL (70-99) 109 mg/dL (70-99) 104 mg/dL (70-99) 300 mg/dL (70-99) Objective Assessment Sepsis, POA Cellulitis and abscess right groin near surgical site (11.5 x 7.1 x 4.5 cm on CTA) , s/p I and D, 10/13 Intra-op cultures pending -GPC Leukocytosis - better Encephalopathy- improved ERSD on HD DM Anemia s/p PRBCs, 10/10 MRSA nares positive Plan Plan of Care Vanc and Zosyn - will taper in next day Monitor labs/cultures Ok to transfer out of ICU MICHAEL SANTOS MD Oct 14, 2016 07:56
[2016-10-14] MEDS ORDERED: IV NORMAL SALINE 1000ML BAG 1,000 ML IV PRN (08:01)
[2016-10-14] MEDS: VANCOMYCIN PER PHARMACY MC PRN (08:05)
[2016-10-14] MEDS ORDERED: DIALYSIS PATIENT. MC PRN (08:15)
[2016-10-14] MEDS ORDERED: ACETAMINOPHEN 500 MG TABLET PO PRN (08:15)
[2016-10-14] MEDS ORDERED: diphenhydrAMINE 50 MG/ML VIAL IV PRN (08:15)
[2016-10-14] MEDS ORDERED: ALBUMIN HUMAN 25% 200 ML IV PRN (08:15)
[2016-10-14] MEDS: INSULIN ASPART 300 UNITS/3 ML INSULN.PEN SQ SCH ×3 (08:32→17:57)
[2016-10-14] MEDS: NYSTATIN TOPICAL POWDER 15GM BOTTLE. TP SCH ×3 (08:39→20:36)
--- NOTE | 2016-10-14 09:06 | PDOC ---
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 with knuckle strap sewer Vitals Vital Signs Vital Signs Date Time Temp Pulse Resp B/P (MAP) Pulse Ox O2 Delivery O2 Flow Rate FiO2 10/14/16 05:30 21 97 Nasal Cannula 2.0 10/14/16 04:00 79 111/62 (78) 10/14/16 00:00 98.2 98.2 Labs Last Labs Laboratory Tests Test 10/12/16 12:23 10/12/16 17:35 10/13/16 03:41 10/13/16 04:00 Glucose (Fingerstick) 163 mg/dL (70-99) 123 mg/dL (70-99) White Blood Count 11.9 x10^3/uL (4.0-11.0) Red Blood Count 3.07 x10^6/uL (3.50-5.40) Hemoglobin 9.7 g/dL (12.0-15.5) Hematocrit 29.6 % (36.0-47.0) Mean Corpuscular Volume 96 fL (79-100) Mean Corpuscular Hemoglobin 32 pg (25-35) Mean Corpuscular Hemoglobin Concent 33 g/dL (31-37) Red Cell Distribution Width 18.6 % (11.5-14.5) Platelet Count 125 x10^3/uL (140-400) Random Vancomycin Level 15.5 mcg/mL Sodium Level 135 mmol/L (136-145) Potassium Level 4.5 mmol/L (3.5-5.1) Chloride Level 97 mmol/L (98-107) Carbon Dioxide Level 24 mmol/L (21-32) Anion Gap 14 (6-14) Blood Urea Nitrogen 49 mg/dL (7-20) Creatinine 4.6 mg/dL (0.6-1.0) Estimated GFR (Cockcroft-Gault) 9.9 Glucose Level 43 mg/dL (70-99) Calcium Level 8.1 mg/dL (8.5-10.1) Test 10/13/16 07:57 10/13/16 09:31 10/13/16 11:27 10/13/16 16:32 Glucose (Fingerstick) 123 mg/dL (70-99) 109 mg/dL (70-99) 104 mg/dL (70-99) 300 mg/dL (70-99) Laboratory Tests Test 10/13/16 09:31 10/13/16 11:27 10/13/16 16:32 Glucose (Fingerstick) 109 mg/dL (70-99) 104 mg/dL (70-99) 300 mg/dL (70-99) GANGA TANG MD Oct 14, 2016 09:06
--- NOTE | 2016-10-14 11:22 | PDOC ---
SURGICAL PROGRESS NOTE Subjective still some pain to right groin seen during dialysis Vital Signs Vital Signs Date Time Temp Pulse Resp B/P (MAP) Pulse Ox O2 Delivery O2 Flow Rate FiO2 10/14/16 08:00 Nasal Cannula 2.0 10/14/16 05:30 21 97 10/14/16 04:00 79 111/62 (78) 10/14/16 00:00 98.2 98.2 I&O Intake and Output 10/14/16 07:00 Intake Total 3194 ml Output Total 150 ml Balance 3044 ml Intake Oral 2640 ml IV Total 150 ml Other 404 ml Output Urine Total 150 ml General: Alert, Cooperative Skin: Other (dressing in place, dry ) Labs Laboratory Tests Test 10/12/16 12:23 10/12/16 17:35 10/13/16 03:41 10/13/16 04:00 Glucose (Fingerstick) 163 mg/dL (70-99) 123 mg/dL (70-99) White Blood Count 11.9 x10^3/uL (4.0-11.0) Red Blood Count 3.07 x10^6/uL (3.50-5.40) Hemoglobin 9.7 g/dL (12.0-15.5) Hematocrit 29.6 % (36.0-47.0) Mean Corpuscular Volume 96 fL (79-100) Mean Corpuscular Hemoglobin 32 pg (25-35) Mean Corpuscular Hemoglobin Concent 33 g/dL (31-37) Red Cell Distribution Width 18.6 % (11.5-14.5) Platelet Count 125 x10^3/uL (140-400) Random Vancomycin Level 15.5 mcg/mL Sodium Level 135 mmol/L (136-145) Potassium Level 4.5 mmol/L (3.5-5.1) Chloride Level 97 mmol/L (98-107) Carbon Dioxide Level 24 mmol/L (21-32) Anion Gap 14 (6-14) Blood Urea Nitrogen 49 mg/dL (7-20) Creatinine 4.6 mg/dL (0.6-1.0) Estimated GFR (Cockcroft-Gault) 9.9 Glucose Level 43 mg/dL (70-99) Calcium Level 8.1 mg/dL (8.5-10.1) Test 10/13/16 07:57 10/13/16 09:31 10/13/16 11:27 10/13/16 16:32 Glucose (Fingerstick) 123 mg/dL (70-99) 109 mg/dL (70-99) 104 mg/dL (70-99) 300 mg/dL (70-99) Test 10/14/16 08:30 Glucose (Fingerstick) 269 mg/dL (70-99) Laboratory Tests Test 10/13/16 11:27 10/13/16 16:32 10/14/16 08:30 Glucose (Fingerstick) 104 mg/dL (70-99) 300 mg/dL (70-99) 269 mg/dL (70-99) Assessment/Plan s/p I&D wound care consult to assist with wound changes Problems: ANDREA MCCLELLAN BASKET WEAVER Oct 14, 2016 11:22
--- NOTE | 2016-10-14 11:35 | PDOC ---
PROGRESS NOTES Chief Complaint Chief Complaint Right groin abscess, fever Sepsis Chronic renal failure CAD CHF HTN Hyperlipidemia History of Present Illness History of Present Illness Patient was seen in dialysis. AOX3. Patient appears to be doing well. I&D site healing normally. I&D for right groin abscess done yesterday. Patient had a fever of 102.6. Discussed possible discharge tomorrow. Needs a SNU eval. Vitals Vitals Vital Signs Date Time Temp Pulse Resp B/P (MAP) Pulse Ox O2 Delivery O2 Flow Rate FiO2 10/14/16 08:00 Nasal Cannula 2.0 10/14/16 05:30 21 97 10/14/16 04:00 79 111/62 (78) 10/14/16 00:00 98.2 98.2 Physical Exam General: Alert, Cooperative, No acute distress Heart: Regular rate, Normal S1, Normal S2, Other (tachycardic,) Lungs: Clear, Other (No RRW) Abdomen: Normal bowel sounds, Soft, No tenderness Extremities: No clubbing, Other (right medial groin hematoma is stable, cellulitis is improved, but the patient is still markedly tender to palpation over this area, there is no skin breakdown, there is no ulceration, there is no gangrenous changes, there is no crepitance overlying the hematoma, she has a palpable thrill in her right upper extremity AV fistula which is still maturing) Skin: No rashes, Other (dressing in place, dry ) Labs LABS Laboratory Tests Test 10/13/16 16:32 10/14/16 08:30 Glucose (Fingerstick) 300 mg/dL (70-99) 269 mg/dL (70-99) Review of Systems Review of Systems Patient complains of cough. Patient complains of weakness. Assessment and Plan Assessmemt and Plan Assessment: Right groin abscess, fever Sepsis Chronic renal failure CAD CHF HTN Hyperlipidemia Plan: 1. Continue vancomycin and Zosyn 2. Continue dialysis 3. Continue wound care 4. Possible discharge to SNU tomorrow 5. Recheck labs 6. Continue PT/OT Problems: Comment Review of Relevant I have reviewed the following items nelda (where applicable) has been applied. Labs Laboratory Tests Test 10/12/16 12:23 10/12/16 17:35 10/13/16 03:41 10/13/16 04:00 Glucose (Fingerstick) 163 mg/dL (70-99) 123 mg/dL (70-99) White Blood Count 11.9 x10^3/uL (4.0-11.0) Red Blood Count 3.07 x10^6/uL (3.50-5.40) Hemoglobin 9.7 g/dL (12.0-15.5) Hematocrit 29.6 % (36.0-47.0) Mean Corpuscular Volume 96 fL (79-100) Mean Corpuscular Hemoglobin 32 pg (25-35) Mean Corpuscular Hemoglobin Concent 33 g/dL (31-37) Red Cell Distribution Width 18.6 % (11.5-14.5) Platelet Count 125 x10^3/uL (140-400) Random Vancomycin Level 15.5 mcg/mL Sodium Level 135 mmol/L (136-145) Potassium Level 4.5 mmol/L (3.5-5.1) Chloride Level 97 mmol/L (98-107) Carbon Dioxide Level 24 mmol/L (21-32) Anion Gap 14 (6-14) Blood Urea Nitrogen 49 mg/dL (7-20) Creatinine 4.6 mg/dL (0.6-1.0) Estimated GFR (Cockcroft-Gault) 9.9 Glucose Level 43 mg/dL (70-99) Calcium Level 8.1 mg/dL (8.5-10.1) Test 10/13/16 07:57 10/13/16 09:31 10/13/16 11:27 10/13/16 16:32 Glucose (Fingerstick) 123 mg/dL (70-99) 109 mg/dL (70-99) 104 mg/dL (70-99) 300 mg/dL (70-99) Test 10/14/16 08:30 Glucose (Fingerstick) 269 mg/dL (70-99) Laboratory Tests Test 10/13/16 16:32 10/14/16 08:30 Glucose (Fingerstick) 300 mg/dL (70-99) 269 mg/dL (70-99) Microbiology 10/11/16 Blood Culture - Preliminary, Resulted NO GROWTH AFTER 2 DAYS 10/13/16 Gram Stain - Final, Complete Medications Current Medications Hydromorphone HCl (Dilaudid) 1 mg 1X ONCE IV Last administered on 10/10/16t 20 :30; Start 10/10/16 at 20:00; Stop 10/10/16 at 20:01; Status DC Ondansetron HCl (Zofran) 4 mg 1X ONCE IV Last administered on 10/10/16 20:30 ; Start 10/10/16 at 20:00; Stop 10/10/16 at 20:01; Status DC Vancomycin HCl (Vanco Per Pharmacy) 1 each PRN DAILY PRN MC SEE COMMENTS Last administered on 10/14/16 08:05; Start 10/11/16 at 00:00 Ceftriaxone Sodium 50 ml @ 100 mls/hr 1X ONCE IV Last administered on 02:38; Start 10/10/16 at 23:00; Stop 10/10/16 at 23:29; Status DC Calcium Gluconate 1000 mg/Sodium Chloride 110 ml @ 220 mls/hr 1X ONCE IV Last administered on 10/10/16 23:30; Start 10/10/16 at 23:00; Stop 10/10/16 at 23:29; Status DC Insulin Human Regular (NovoLIN R VIAL) 10 unit 1X ONCE IV Last administered on 10/11/16 00:41; Start 10/10/16 at 23:00; Stop 10/10/16 at 23:01; Status DC Dextrose (Dextrose 50%-Water Syringe) 25 gm 1X ONCE IV Last administered on 00:37; Start 10/10/16 at 23:00; Stop 10/10/16 at 23:01; Status DC Sodium Bicarbonate 50 meq 1X ONCE IV Last administered on 10/11/16 00:34; Start 10/10/16 at 23:00; Stop 10/10/16 at 23:01; Status DC Ondansetron HCl (Zofran) 4 mg PRN Q8HRS PRN IV NAUSEA/VOMITING; Start 10/10/16 at 22:45; Stop 10/11/16 at 09:49; Status DC Morphine Sulfate 4 mg PRN Q2HR PRN IV PAIN Last administered on 10/11/16 19:56 ; Start 10/10/16 at 22:45; Stop 10/11/16 at 22:44; Status DC Acetaminophen (Tylenol) 650 mg PRN Q4HRS PRN PO FEVER Last administered on 10/11 19:09; Start 10/10/16 at 22:45; Stop 10/11/16 at 22:44; Status DC Vancomycin HCl 2 gm/Sodium Chloride 500 ml @ 250 mls/hr 1X ONCE IV Last administered on 10/11/16 00:44; Start 10/10/16 at 23:00; Stop 10/11/16 at 00:59 ; Status DC Vancomycin HCl 1.5 gm/Sodium Chloride 500 ml @ 250 mls/hr Q48H IV ; Start 10/13 at 01:00; Status Cancel Vancomycin HCl 1 each 1X ONCE MC ; Start 10/15/16 at 00:30; Stop 10/15/16 at 00 :31; Status Cancel Ondansetron HCl (Zofran) 4 mg PRN Q6HRS PRN IV NAUSEA/VOMITING; Start 10/11/16 at 09:48; Stop 10/12/16 at 09:47; Status DC Carvedilol (Coreg) 6.25 mg BIDWMEALS PO Last administered on 10/13/16 16:44; Start 10/11/16 at 10:00 Fluoxetine HCl (PROzac) 20 mg DAILY PO Last administered on 10/13/16 10:23; Start 10/11/16 at 10:00 Acetaminophen/ Hydrocodone Bitart (Lortab 7.5/325) 1 tab PRN Q4HRS PRN PO PAIN Last administered on 10/14/16 08:19; Start 10/11/16 at 10:00 Sevelamer Carbonate (Renvela) 800 mg TIDWMEALS PO Last administered on 16:44; Start 10/11/16 at 12:00 Tamsulosin HCl (Flomax) 0.4 mg DAILY PO Last administered on 10/13/16 10:23; Start 10/11/16 at 10:00 Bumetanide (Bumex) 1 mg DAILY PO Last administered on 10/13/16 10:23; Start at 10:00 Gabapentin (Neurontin) 400 mg TID PO Last administered on 10/13/16 20:55; Start 10/11/16 at 10:15 Glimepiride (Amaryl) 4 mg DAILYWBKFT PO Last administered on 10/12/16 09:50; Start 10/12/16 at 08:00 Nystatin (Nystop) 1 gabrielle TID TP Last administered on 10/12/16 09:52; Start 02/15 at 14:00; Stop 10/12/16 at 13:27; Status DC Insulin Aspart (NovoLOG) 0-9 UNITS TIDWMEALS SQ Last administered on 10/14/16 08:32; Start 10/11/16 at 12:00 Dextrose (Dextrose 50%-Water Syringe) 12.5 gm PRN Q15MIN PRN IV SEE COMMENTS Last administered on 10/13/16 07:41; Start 10/11/16 at 10:00 Sodium Chloride 1,000 ml @ 1,000 mls/hr Q1H PRN IV hypotension; Start 10/11/16 at 11:56; Stop 10/11/16 at 17:55; Status DC Albumin Human 200 ml @ 200 mls/hr 1X PRN PRN IV Hypotension; Start 10/11/16 at 12:00; Stop 10/11/16 at 17:59; Status DC Acetaminophen (Tylenol) 500 mg 1X PRN PRN PO MILD PAIN / TEMP; Start 10/11/16 at 12:00; Stop 10/12/16 at 11:59; Status DC Diphenhydramine HCl (Benadryl) 25 mg 1X PRN PRN IV ITCHING; Start 10/11/16 at 12:00; Stop 10/12/16 at 11:59; Status DC Sodium Chloride (Normal Saline Flush) 10 ml 1X PRN PRN IV AP catheter pack; Start 10/11/16 at 12:00; Stop 10/12/16 at 11:59; Status DC Sodium Chloride (Normal Saline Flush) 10 ml 1X PRN PRN IV RN LPN CNA catheter pack; Start 10/11/16 at 12:00; Stop 10/12/16 at 11:59; Status DC Sodium Chloride 1,000 ml @ 400 mls/hr Q2H30M PRN IV PATENCY; Start 10/11/16 at 11:56; Stop 10/11/16 at 23:55; Status DC Info (PHARMACY MONITORING -- do not chart) 1 each PRN DAILY PRN MC SEE COMMENTS ; Start 10/11/16 at 12:00; Status Cancel Info (PHARMACY MONITORING -- do not chart) 1 each PRN DAILY PRN MC SEE COMMENTS ; Start 10/11/16 at 12:00 Darbepoetin Manuel (Aranesp) 60 mcg WEEKLYHS SQ Last administered on 10/11/16 21 :27; Start 10/11/16 at 21:00 Piperacillin Sod/ Tazobactam Sod (Zosyn Per Pharmacy) 1 each PRN DAILY PRN MC SEE COMMENTS; Start 10/11/16 at 13:00 Piperacillin Sod/ Tazobactam Sod 2.25 gm/Sodium Chloride 50 ml @ 100 mls/hr Q8HRS IV Last administered on 10/14/16 06:23; Start 10/11/16 at 14:00 Famotidine (Pepcid) 20 mg QHS IVP Last administered on 10/11/16 21:27; Start 10/11/16 at 21:00; Stop 10/12/16 at 07:43; Status DC Heparin Sodium (Porcine) (Heparin Sq) 5,000 unit Q12HR SQ Last administered on 10/13/16 20:57; Start 10/11/16 at 21:00 Iohexol (Omnipaque 350 Mg/ml) 100 ml 1X ONCE IV ; Start 10/11/16 at 16:00; Stop 10/11/16 at 16:01; Status DC Vancomycin HCl 1 each 1X ONCE MC Last administered on 10/13/16 05:00; Start 10/13/16 at 05:00; Stop 10/13/16 at 05:01; Status DC Famotidine (Pepcid) 20 mg Q48H IVP Last administered on 10/12/16 20:11; Start 10/12/16 at 21:00 Nystatin (Nystop) 1 gabrielle TID TP Last administered on 10/14/16 08:39; Start at 13:27 Acetaminophen (Tylenol) 650 mg PRN Q6HRS PRN PO FEVER Last administered on 10/13 20:55; Start 10/12/16 at 19:45 Ondansetron HCl (Zofran) 4 mg PRN Q6HRS PRN IV NAUSEA/VOMITING; Start 10/12/16 at 20:30 Morphine Sulfate 4 mg PRN Q4HRS PRN IV PAIN Last administered on 10/13/16 09: 25; Start 10/12/16 at 20:30 Ondansetron HCl (Zofran) 4 mg STK-MED ONCE .ROUTE ; Start 10/13/16 at 07:31; Stop 10/13/16 at 07:32; Status DC Propofol 20 ml @ As Directed STK-MED ONCE IV ; Start 10/13/16 at 07:31; Stop at 07:32; Status DC Lidocaine HCl (Lidocaine Pf 2% Vial) 5 ml STK-MED ONCE .ROUTE ; Start 10/13/16 at 07:31; Stop 10/13/16 at 07:32; Status DC Midazolam HCl (Versed) 2 mg STK-MED ONCE .ROUTE ; Start 10/13/16 at 07:31; Stop 10/13/16 at 07:32; Status DC Fentanyl Citrate (Fentanyl 2ml Vial) 100 mcg STK-MED ONCE .ROUTE ; Start at 07:32; Stop 10/13/16 at 07:33; Status DC Ondansetron HCl (Zofran) 4 mg PRN Q6HRS PRN IV NAUSEA/VOMITING; Start 10/13/16 at 07:45; Stop 10/14/16 at 07:44; Status DC Fentanyl Citrate (Fentanyl 2ml Vial) 25 mcg PRN Q5MIN PRN IV MILD PAIN; Start 10/13/16 at 07:45; Stop 10/14/16 at 07:44; Status DC Fentanyl Citrate (Fentanyl 2ml Vial) 50 mcg PRN Q5MIN PRN IV MODERATE PAIN; Start 10/13/16 at 07:45; Stop 10/14/16 at 07:44; Status DC Morphine Sulfate 1 mg PRN Q10MIN PRN IV SEVERE PAIN; Start 10/13/16 at 07:45; Stop 10/14/16 at 07:44; Status DC Ringer's Solution 1,000 ml @ 30 mls/hr Q24H IV ; Start 10/13/16 at 07:43; Stop 10/13/16 at 19:42; Status DC Lidocaine HCl 2 ml PRN 1X PRN ID PRIOR TO IV START; Start 10/13/16 at 07:45; Stop 10/14/16 at 07:44; Status DC Hydromorphone HCl (Dilaudid) 0.5 mg PRN Q10MIN PRN IV SEV PAIN, Second choice; Start 10/13/16 at 07:45; Stop 10/14/16 at 07:44; Status DC Prochlorperazine Edisylate (Compazine) 5 mg PACU PRN PRN IV NAUSEA, MRX1; Start 10/13/16 at 07:45; Stop 10/14/16 at 07:44; Status DC Vancomycin HCl 500 mg/Sodium Chloride 100 ml @ 100 mls/hr 1X ONCE IV Last administered on 10/13/16t 09:17; Start 10/13/16 at 09:00; Stop 10/13/16 at 09:59 ; Status DC Vancomycin HCl 500 mg/Sodium Chloride 100 ml @ 100 mls/hr QTUTHSA IV ; Start at 16:00 Dexamethasone Sodium Phosphate (Decadron) 20 mg STK-MED ONCE .ROUTE ; Start at 08:06; Stop 10/13/16 at 08:07; Status DC Ephedrine Sulfate (Akovaz) 50 mg STK-MED ONCE .ROUTE ; Start 10/13/16 at 08:22; Stop 10/13/16 at 08:23; Status DC Sevoflurane (Ultane) 30 ml STK-MED ONCE IH ; Start 10/13/16 at 08:37; Stop 10/13 at 08:38; Status DC Sevoflurane (Ultane) 30 ml STK-MED ONCE IH ; Start 10/13/16 at 08:41; Stop 10/13 at 08:42; Status DC Sodium Chloride (Normal Saline Flush) 3 ml QSHIFT PRN IV AFTER MEDS AND BLOOD DRAWS; Start 10/13/16 at 09:30 Sodium Chloride 1,000 ml @ 1,000 mls/hr Q1H PRN IV hypotension; Start 10/14/16 at 08:01; Stop 10/14/16 at 14:00 Albumin Human 200 ml @ 200 mls/hr 1X PRN PRN IV Hypotension; Start 10/14/16 at 08:15; Stop 10/14/16 at 14:14 Acetaminophen (Tylenol) 500 mg 1X PRN PRN PO MILD PAIN / TEMP; Start 10/14/16 at 08:15; Stop 10/15/16 at 08:14 Diphenhydramine HCl (Benadryl) 25 mg 1X PRN PRN IV ITCHING; Start 10/14/16 at 08:15; Stop 10/15/16 at 08:14 Info (PHARMACY MONITORING -- do not chart) 1 each PRN DAILY PRN MC SEE COMMENTS ; Start 10/14/16 at 08:15; Status UNV Active Scripts Active Reported Tamsulosin Hcl 0.4 Mg Cap.er.24h 0.4 Mg PO DAILY Fluoxetine Hcl 20 Mg Capsule 20 Mg PO DAILY Aspirin 325 Mg Tablet 325 Mg PO DAILY Hydrocodone-Apap 7.5-325 (Hydrocodone Bit/Acetaminophen) 1 Each Tablet 1 Tab PO PRN Q4HRS PRN Renvela (Sevelamer Carbonate) 800 Mg Tablet 800 Mg PO TIDWMEALS Gabapentin 400 Mg Capsule 400 Mg PO TID Carvedilol 6.25 Mg Tablet 6.25 Mg PO DAILY Nystatin 1 Each Powder.ea. 1 Each PO TID Bumetanide 2 Mg Tablet 1 Tab PO DAILY Glimepiride 4 Mg Tablet 4 Mg PO DAILY Acetaminophen 325 Mg Capsule 650 Mg PO Q6HRS PRN Vitals/I & O Vital Sign - Last 24 Hours 10/13/16 10/13/16 10/13/16 10/13/16 12:00 13:19 14:04 15:04 Temp 97.5 97.5 Pulse 91 90 83 Resp 16 11 B/P (MAP) 107/55 (72) 96/54 (68) 103/58 (73) Pulse Ox 96 98 97 O2 Delivery Nasal Cannula Nasal Cannula Nasal Cannula Nasal Cannula O2 Flow Rate 2.0 2.0 2.0 10/13/16 10/13/16 10/13/16 10/13/16 16:08 16:19 16:44 16:44 Temp 97.7 97.7 Pulse 89 82 Resp 12 B/P (MAP) 128/68 (88) 115/68 Pulse Ox 97 2 O2 Delivery Nasal Cannula Nasal Cannula Nasal Cannula O2 Flow Rate 2.0 2.0 10/13/16 10/13/16 10/13/16 10/13/16 17:04 18:04 19:00 20:00 Temp 97.5 97.5 Pulse 88 87 84 84 Resp 14 14 12 13 B/P (MAP) 117/59 (78) 120/57 (78) 113/57 (75) 108/56 (73) Pulse Ox 99 100 98 95 O2 Delivery Nasal Cannula Nasal Cannula Nasal Cannula Nasal Cannula O2 Flow Rate 2.0 2.0 2.0 2.0 10/13/16 10/14/16 10/14/16 10/14/16 20:00 00:00 04:00 04:27 Temp 98.2 98.2 Pulse 70 79 Resp 11 16 14 B/P (MAP) 111/49 (69) 111/62 (78) Pulse Ox 96 97 97 O2 Delivery Nasal Cannula Nasal Cannula Nasal Cannula Nasal Cannula O2 Flow Rate 2.0 2.0 2.0 2.0 10/14/16 10/14/16 05:30 08:00 Resp 21 Pulse Ox 97 O2 Delivery Nasal Cannula Nasal Cannula O2 Flow Rate 2.0 2.0 Intake and Output 10/13/16 10/13/16 10/14/16 15:00 23:00 07:00 Intake Total 1300 ml 1294 ml 600 ml Output Total 150 ml Balance 1300 ml 1144 ml 600 ml POONAM CHRISTOPHER III DO Oct 14, 2016 11:35
[2016-10-14] MEDS: SEVELAMER CARBONATE 800 MG TABLET. PO SCH ×3 (12:00→17:51)
[2016-10-14] MEDS: HEPARIN PF for SUB-Q USE 5,000 UNIT/0.5 ML VIAL. SQ SCH ×2 (13:26→20:39)
[2016-10-14] MEDS: CARVEDILOL 6.25 MG TABLET. PO SCH ×2 (13:27→17:52)
[2016-10-14] MEDS: BUMETANIDE 1 MG TABLET. PO SCH (13:27)
[2016-10-14] MEDS: TAMSULOSIN 0.4 MG CAP.ER.24H. PO SCH (13:27)
[2016-10-14] MEDS: GABAPENTIN 400 MG CAPSULE. PO SCH ×3 (13:27→20:35)
[2016-10-14] MEDS: GLIMEPIRIDE 2 MG TABLET. PO SCH (13:27)
[2016-10-14] MEDS: FLUoxetine HCL 20 MG CAPSULE PO SCH (13:28)
--- NOTE | 2016-10-14 13:46 | PATHOLOGY ---
PATHOLOGY REPORT * * * * * * * * FINAL DIAGNOSIS: Fibrous tissue, right groin: - Abscess. COMMENT: There is no evidence of malignancy. (JPM:db; 10/14/2016) REPORT ELECTRONICALLY SIGNED BY: Jamie Sarah M.D. DATE/TIME: 10/14/2016 13:46 * * * * * * * * GROSS PATHOLOGY: The specimen is received in formalin, designated "Heydi Mcknight, right groin tissue" and consists of a somewhat linear segment of soft, pink chandler tissue, measuring 2.5 x 0.6 x 0.4cm. This is submitted in toto in cassette A1. (JPM; 10/13/16) INITIAL CPT CODE(S): A; 28467 Professional services performed [place] [address] Technical services performed by [facility] at [address] [place] [address] Dianelys Nova fax: [phone] SPECIMEN(S) RECEIVED: A.Right groin tissue CLINICAL HISTORY: Chronic right groin abscess PATIENT: HEYDI MCKNIGHT /AGE: 8 1960 (Age: 56) PATIENT #: [id number] ALT CASE #: SPECIMEN COLLECTION DATE: 10/13/2016 SPECIMEN RECEIVED DATE: 10/13/2016 [facility] - [id number] [place] [id number] - PHONE: [phone] * * * END OF REPORT * * *
[2016-10-14] MEDS: VANCOMYCIN 500 MG in IV NORMAL SALINE 100ML 100 ML IV SCH (15:38)
[2016-10-14] MEDS: MORPHINE SULFATE 4 MG/ML DISP.SYRIN. IV PRN (16:03)
[2016-10-14] MEDS: FAMOTIDINE 20 MG/2 ML VIAL IVP SCH (20:35)
[2016-10-15] VITALS (10 sets, daily range): BP systolic 106–124; BP diastolic 49–68
[2016-10-15] MEDS: PIPERACILLIN/TAZOBACTAM 2.25 GM in IV NORMAL SALINE 50ML 50 ML IV SCH (05:49)
[2016-10-15] MEDS: HYDROcodone/APAP 7.5/325MG 1 TAB TABLET PO PRN ×3 (05:50→20:55)
[2016-10-15] MEDS: FLUoxetine HCL 20 MG CAPSULE PO SCH (09:06)
[2016-10-15] MEDS: BUMETANIDE 1 MG TABLET. PO SCH (09:06)
[2016-10-15] MEDS: TAMSULOSIN 0.4 MG CAP.ER.24H. PO SCH (09:06)
[2016-10-15] MEDS: GLIMEPIRIDE 2 MG TABLET. PO SCH (09:06)
[2016-10-15] MEDS: GABAPENTIN 400 MG CAPSULE. PO SCH (09:06)
[2016-10-15] MEDS: SEVELAMER CARBONATE 800 MG TABLET. PO SCH ×3 (09:06→17:13)
[2016-10-15] MEDS: CARVEDILOL 6.25 MG TABLET. PO SCH ×2 (09:06→17:13)
[2016-10-15] MEDS: HEPARIN PF for SUB-Q USE 5,000 UNIT/0.5 ML VIAL. SQ SCH ×2 (09:07→21:00)
[2016-10-15] MEDS: INSULIN ASPART 300 UNITS/3 ML INSULN.PEN SQ SCH ×3 (09:07→17:12)
[2016-10-15] MEDS: MORPHINE SULFATE 4 MG/ML DISP.SYRIN. IV PRN (09:10)
[2016-10-15 09:41] LABS: INR 1.2 (0.8-1.1); PROTHROMBIN TIME PATIENT 14.5 SEC (11.7-14.0)
--- NOTE | 2016-10-15 10:11 | PDOC ---
Infectious Disease Note Subjective Subjective Had a rough night and pulled out her HD cath Still some pain in groin but better ROS ROS GEN: Denies fevers, chills, sweats HEENT: Denies blurred vision, sore throat CV: Denies chest pain RESP: Denies shortness of air, cough GI: Denies n/v/d NEURO: Denies confusion, dizziness MSK: Denies weakness, joint pain/swelling Vital Sign Vital Signs Vital Signs Date Time Temp Pulse Resp B/P (MAP) Pulse Ox O2 Delivery O2 Flow Rate FiO2 10/15/16 09:06 96 124/59 10/15/16 07:00 97.9 20 96 Nasal Cannula 3.0 97.9 Physical Exam PHYSICAL EXAM GENERAL: Lying down, NAD, Looks ok HEENT: Oral mucosa pink and dry. LUNGS: Clear anteriorly. HEART: Normal S1 and S2. No murmur appreciated. ABDOMEN: Obese. Bowel sounds are present, soft. No grimace or guarding to palpation. EXTREMITIES: No gross edema or cyanosis. Right upper extremity AV fistula unremarkable with min thrill and bruit present. SKIN: Without rash. Right groin post-op dressing dry and intact. No erythema/ warmth. Mild tender. Deandra in place RAIL BENDER: Alert and oriented HDC - out area without redness, swelling or drainage/tenderness Labs Lab Laboratory Tests Test 10/14/16 13:14 10/14/16 17:41 10/14/16 20:43 10/15/16 07:43 Glucose (Fingerstick) 169 mg/dL (70-99) 187 mg/dL (70-99) 138 mg/dL (70-99) 136 mg/dL (70-99) Test 10/15/16 08:40 Prothrombin Time 14.5 SEC (11.7-14.0) Prothromb Time International Ratio 1.2 (0.8-1.1) Objective Assessment Sepsis, POA Cellulitis and abscess right groin near surgical site (11.5 x 7.1 x 4.5 cm on CTA) , s/p I and D, 10/13 Intra-op cultures pending - + MRSA Leukocytosis - better Encephalopathy- improved ERSD on HD DM Anemia s/p PRBCs, 10/10 MRSA nares positive Plan Plan of Care Cont Vanc D/c Zosyn Monitor labs MICHAEL SANTOS MD Oct 15, 2016 10:11
--- NOTE | 2016-10-15 11:22 | PDOC ---
PROGRESS NOTES Chief Complaint Chief Complaint 1. R groin abscess s/p I and D with indwelling CELIA drain 2. GPC bacteremia, sepsis 3. acute metabolic encephalopathy, multifactorial, sepsis, meds 4. ESRD on HD 5. DM2, controlled 6. morbid obesity, BMI 45 w/ mod malnutrition 7. weakness and debility 8. anemia of CKD History of Present Illness History of Present Illness Transferred out of ICU 10/14 R groin looks better, CELIA drain indwelling Pt lives at home, needs SNU definitely - SW aware Sleepy - got some morphine prior to dressing change Did not eat breakfast today bec too sleepy Second issue: pulled out HD cath last night HD is TTHSat INr 1.2 But GPC on BC - IR hesitant to put HD cath with this BC? PLAN: Await Renal and ID recs re this HD cath insertion and positive GPC on BC Dec morphine dose SNU on the works PT/OT Wound care Robby Berry Vitals Vitals Vital Signs Date Time Temp Pulse Resp B/P (MAP) Pulse Ox O2 Delivery O2 Flow Rate FiO2 10/15/16 10:00 96 Nasal Cannula 3.0 10/15/16 09:06 96 124/59 10/15/16 07:00 97.9 20 97.9 Physical Exam General: Alert, Cooperative, No acute distress Heart: Regular rate, Normal S1, Normal S2, Other (tachycardic,) Lungs: Clear, Other (No RRW) Abdomen: Normal bowel sounds, Soft, No tenderness Extremities: No clubbing, Other (right medial groin hematoma is stable, cellulitis is improved, but the patient is still markedly tender to palpation over this area, there is no skin breakdown, there is no ulceration, there is no gangrenous changes, there is no crepitance overlying the hematoma, she has a palpable thrill in her right upper extremity AV fistula which is still maturing) Skin: No rashes, Other (dressing in place, dry ) Labs LABS Laboratory Tests Test 10/14/16 13:14 10/14/16 17:41 10/14/16 20:43 10/15/16 07:43 Glucose (Fingerstick) 169 mg/dL (70-99) 187 mg/dL (70-99) 138 mg/dL (70-99) 136 mg/dL (70-99) Test 10/15/16 08:40 Prothrombin Time 14.5 SEC (11.7-14.0) Prothromb Time International Ratio 1.2 (0.8-1.1) Review of Systems Review of Systems sleepy Comment Review of Relevant I have reviewed the following items nelda (where applicable) has been applied. Labs Laboratory Tests Test 10/13/16 11:27 10/13/16 16:32 10/14/16 08:30 10/14/16 13:14 Glucose (Fingerstick) 104 mg/dL (70-99) 300 mg/dL (70-99) 269 mg/dL (70-99) 169 mg/dL (70-99) Test 10/14/16 17:41 10/14/16 20:43 10/15/16 07:43 10/15/16 08:40 Glucose (Fingerstick) 187 mg/dL (70-99) 138 mg/dL (70-99) 136 mg/dL (70-99) Prothrombin Time 14.5 SEC (11.7-14.0) Prothromb Time International Ratio 1.2 (0.8-1.1) Laboratory Tests Test 10/14/16 13:14 10/14/16 17:41 10/14/16 20:43 10/15/16 07:43 Glucose (Fingerstick) 169 mg/dL (70-99) 187 mg/dL (70-99) 138 mg/dL (70-99) 136 mg/dL (70-99) Test 10/15/16 08:40 Prothrombin Time 14.5 SEC (11.7-14.0) Prothromb Time International Ratio 1.2 (0.8-1.1) Microbiology 10/11/16 Blood Culture - Preliminary, Resulted NO GROWTH AFTER 3 DAYS 10/13/16 Anaerobic/Aerobic Culture, Resulted Pending 10/13/16 Anaerobic Culture Result 1 (RICHARD), Resulted Pending 10/13/16 Aerobic Culture - Final, Resulted 10/13/16 Aerobic Culture Result 1 (RICHARD) - Final, Resulted 10/13/16 Antimicrobic Susceptibility - Final, Resulted Medications Current Medications Hydromorphone HCl (Dilaudid) 1 mg 1X ONCE IV Last administered on 10/10/16t 20 :30; Start 10/10/16 at 20:00; Stop 10/10/16 at 20:01; Status DC Ondansetron HCl (Zofran) 4 mg 1X ONCE IV Last administered on 10/10/16 20:30 ; Start 10/10/16 at 20:00; Stop 10/10/16 at 20:01; Status DC Vancomycin HCl (Vanco Per Pharmacy) 1 each PRN DAILY PRN MC SEE COMMENTS Last administered on 10/14/16 08:05; Start 10/11/16 at 00:00 Ceftriaxone Sodium 50 ml @ 100 mls/hr 1X ONCE IV Last administered on 02:38; Start 10/10/16 at 23:00; Stop 10/10/16 at 23:29; Status DC Calcium Gluconate 1000 mg/Sodium Chloride 110 ml @ 220 mls/hr 1X ONCE IV Last administered on 10/10/16 23:30; Start 10/10/16 at 23:00; Stop 10/10/16 at 23:29; Status DC Insulin Human Regular (NovoLIN R VIAL) 10 unit 1X ONCE IV Last administered on 10/11/16 00:41; Start 10/10/16 at 23:00; Stop 10/10/16 at 23:01; Status DC Dextrose (Dextrose 50%-Water Syringe) 25 gm 1X ONCE IV Last administered on 00:37; Start 10/10/16 at 23:00; Stop 10/10/16 at 23:01; Status DC Sodium Bicarbonate 50 meq 1X ONCE IV Last administered on 10/11/16 00:34; Start 10/10/16 at 23:00; Stop 10/10/16 at 23:01; Status DC Ondansetron HCl (Zofran) 4 mg PRN Q8HRS PRN IV NAUSEA/VOMITING; Start 10/10/16 at 22:45; Stop 10/11/16 at 09:49; Status DC Morphine Sulfate 4 mg PRN Q2HR PRN IV PAIN Last administered on 10/11/16 19:56 ; Start 10/10/16 at 22:45; Stop 10/11/16 at 22:44; Status DC Acetaminophen (Tylenol) 650 mg PRN Q4HRS PRN PO FEVER Last administered on 10/11 19:09; Start 10/10/16 at 22:45; Stop 10/11/16 at 22:44; Status DC Vancomycin HCl 2 gm/Sodium Chloride 500 ml @ 250 mls/hr 1X ONCE IV Last administered on 10/11/16 00:44; Start 10/10/16 at 23:00; Stop 10/11/16 at 00:59 ; Status DC Vancomycin HCl 1.5 gm/Sodium Chloride 500 ml @ 250 mls/hr Q48H IV ; Start 10/13 at 01:00; Status Cancel Vancomycin HCl 1 each 1X ONCE MC ; Start 10/15/16 at 00:30; Stop 10/15/16 at 00 :31; Status Cancel Ondansetron HCl (Zofran) 4 mg PRN Q6HRS PRN IV NAUSEA/VOMITING; Start 10/11/16 at 09:48; Stop 10/12/16 at 09:47; Status DC Carvedilol (Coreg) 6.25 mg BIDWMEALS PO Last administered on 10/15/16 09:06; Start 10/11/16 at 10:00 Fluoxetine HCl (PROzac) 20 mg DAILY PO Last administered on 10/15/16 09:06; Start 10/11/16 at 10:00 Acetaminophen/ Hydrocodone Bitart (Lortab 7.5/325) 1 tab PRN Q4HRS PRN PO PAIN Last administered on 10/15/16 00:00; Start 10/11/16 at 10:00 Sevelamer Carbonate (Renvela) 800 mg TIDWMEALS PO Last administered on 09:06; Start 10/11/16 at 12:00 Tamsulosin HCl (Flomax) 0.4 mg DAILY PO Last administered on 10/15/16 09:06; Start 10/11/16 at 10:00 Bumetanide (Bumex) 1 mg DAILY PO Last administered on 10/15/16 09:06; Start at 10:00 Gabapentin (Neurontin) 400 mg TID PO Last administered on 10/15/16 09:06; Start 10/11/16 at 10:15 Glimepiride (Amaryl) 4 mg DAILYWBKFT PO Last administered on 10/15/16 09:06; Start 10/12/16 at 08:00 Nystatin (Nystop) 1 gabrielle TID TP Last administered on 10/12/16 09:52; Start 02/15 at 14:00; Stop 10/12/16 at 13:27; Status DC Insulin Aspart (NovoLOG) 0-9 UNITS TIDWMEALS SQ Last administered on 10/14/16 17:57; Start 10/11/16 at 12:00 Dextrose (Dextrose 50%-Water Syringe) 12.5 gm PRN Q15MIN PRN IV SEE COMMENTS Last administered on 10/13/16 07:41; Start 10/11/16 at 10:00 Sodium Chloride 1,000 ml @ 1,000 mls/hr Q1H PRN IV hypotension; Start 10/11/16 at 11:56; Stop 10/11/16 at 17:55; Status DC Albumin Human 200 ml @ 200 mls/hr 1X PRN PRN IV Hypotension; Start 10/11/16 at 12:00; Stop 10/11/16 at 17:59; Status DC Acetaminophen (Tylenol) 500 mg 1X PRN PRN PO MILD PAIN / TEMP; Start 10/11/16 at 12:00; Stop 10/12/16 at 11:59; Status DC Diphenhydramine HCl (Benadryl) 25 mg 1X PRN PRN IV ITCHING; Start 10/11/16 at 12:00; Stop 10/12/16 at 11:59; Status DC Sodium Chloride (Normal Saline Flush) 10 ml 1X PRN PRN IV AP catheter pack; Start 10/11/16 at 12:00; Stop 10/12/16 at 11:59; Status DC Sodium Chloride (Normal Saline Flush) 10 ml 1X PRN PRN IV TELETYPESETTER MONITOR catheter pack; Start 10/11/16 at 12:00; Stop 10/12/16 at 11:59; Status DC Sodium Chloride 1,000 ml @ 400 mls/hr Q2H30M PRN IV PATENCY; Start 10/11/16 at 11:56; Stop 10/11/16 at 23:55; Status DC Info (PHARMACY MONITORING -- do not chart) 1 each PRN DAILY PRN MC SEE COMMENTS ; Start 10/11/16 at 12:00; Status Cancel Info (PHARMACY MONITORING -- do not chart) 1 each PRN DAILY PRN MC SEE COMMENTS ; Start 10/11/16 at 12:00 Darbepoetin Manuel (Aranesp) 60 mcg WEEKLYHS SQ Last administered on 10/11/16 21 :27; Start 10/11/16 at 21:00 Piperacillin Sod/ Tazobactam Sod (Zosyn Per Pharmacy) 1 each PRN DAILY PRN MC SEE COMMENTS; Start 10/11/16 at 13:00 Piperacillin Sod/ Tazobactam Sod 2.25 gm/Sodium Chloride 50 ml @ 100 mls/hr Q8HRS IV Last administered on 10/15/16 05:49; Start 10/11/16 at 14:00; Stop at 10:12; Status DC Famotidine (Pepcid) 20 mg QHS IVP Last administered on 10/11/16 21:27; Start 10/11/16 at 21:00; Stop 10/12/16 at 07:43; Status DC Heparin Sodium (Porcine) (Heparin Sq) 5,000 unit Q12HR SQ Last administered on 10/14/16 20:39; Start 10/11/16 at 21:00 Iohexol (Omnipaque 350 Mg/ml) 100 ml 1X ONCE IV ; Start 10/11/16 at 16:00; Stop 10/11/16 at 16:01; Status DC Vancomycin HCl 1 each 1X ONCE MC Last administered on 10/13/16 05:00; Start 10/13/16 at 05:00; Stop 10/13/16 at 05:01; Status DC Famotidine (Pepcid) 20 mg Q48H IVP Last administered on 10/14/16 20:35; Start 10/12/16 at 21:00 Nystatin (Nystop) 1 gabrielle TID TP Last administered on 10/14/16 20:36; Start at 13:27 Acetaminophen (Tylenol) 650 mg PRN Q6HRS PRN PO FEVER Last administered on 10/13 20:55; Start 10/12/16 at 19:45 Ondansetron HCl (Zofran) 4 mg PRN Q6HRS PRN IV NAUSEA/VOMITING; Start 10/12/16 at 20:30 Morphine Sulfate 4 mg PRN Q4HRS PRN IV PAIN Last administered on 10/15/16 09: 10; Start 10/12/16 at 20:30 Ondansetron HCl (Zofran) 4 mg STK-MED ONCE .ROUTE ; Start 10/13/16 at 07:31; Stop 10/13/16 at 07:32; Status DC Propofol 20 ml @ As Directed STK-MED ONCE IV ; Start 10/13/16 at 07:31; Stop at 07:32; Status DC Lidocaine HCl (Lidocaine Pf 2% Vial) 5 ml STK-MED ONCE .ROUTE ; Start 10/13/16 at 07:31; Stop 10/13/16 at 07:32; Status DC Midazolam HCl (Versed) 2 mg STK-MED ONCE .ROUTE ; Start 10/13/16 at 07:31; Stop 10/13/16 at 07:32; Status DC Fentanyl Citrate (Fentanyl 2ml Vial) 100 mcg STK-MED ONCE .ROUTE ; Start at 07:32; Stop 10/13/16 at 07:33; Status DC Ondansetron HCl (Zofran) 4 mg PRN Q6HRS PRN IV NAUSEA/VOMITING; Start 10/13/16 at 07:45; Stop 10/14/16 at 07:44; Status DC Fentanyl Citrate (Fentanyl 2ml Vial) 25 mcg PRN Q5MIN PRN IV MILD PAIN; Start 10/13/16 at 07:45; Stop 10/14/16 at 07:44; Status DC Fentanyl Citrate (Fentanyl 2ml Vial) 50 mcg PRN Q5MIN PRN IV MODERATE PAIN; Start 10/13/16 at 07:45; Stop 10/14/16 at 07:44; Status DC Morphine Sulfate 1 mg PRN Q10MIN PRN IV SEVERE PAIN; Start 10/13/16 at 07:45; Stop 10/14/16 at 07:44; Status DC Ringer's Solution 1,000 ml @ 30 mls/hr Q24H IV ; Start 10/13/16 at 07:43; Stop 10/13/16 at 19:42; Status DC Lidocaine HCl 2 ml PRN 1X PRN ID PRIOR TO IV START; Start 10/13/16 at 07:45; Stop 10/14/16 at 07:44; Status DC Hydromorphone HCl (Dilaudid) 0.5 mg PRN Q10MIN PRN IV SEV PAIN, Second choice; Start 10/13/16 at 07:45; Stop 10/14/16 at 07:44; Status DC Prochlorperazine Edisylate (Compazine) 5 mg PACU PRN PRN IV NAUSEA, MRX1; Start 10/13/16 at 07:45; Stop 10/14/16 at 07:44; Status DC Vancomycin HCl 500 mg/Sodium Chloride 100 ml @ 100 mls/hr 1X ONCE IV Last administered on 10/13/16t 09:17; Start 10/13/16 at 09:00; Stop 10/13/16 at 09:59 ; Status DC Vancomycin HCl 500 mg/Sodium Chloride 100 ml @ 100 mls/hr QTUTHSA IV Last administered on 10/14/16t 15:38; Start 10/14/16 at 16:00 Dexamethasone Sodium Phosphate (Decadron) 20 mg STK-MED ONCE .ROUTE ; Start at 08:06; Stop 10/13/16 at 08:07; Status DC Ephedrine Sulfate (Akovaz) 50 mg STK-MED ONCE .ROUTE ; Start 10/13/16 at 08:22; Stop 10/13/16 at 08:23; Status DC Sevoflurane (Ultane) 30 ml STK-MED ONCE IH ; Start 10/13/16 at 08:37; Stop 10/13 at 08:38; Status DC Sevoflurane (Ultane) 30 ml STK-MED ONCE IH ; Start 10/13/16 at 08:41; Stop 10/13 at 08:42; Status DC Sodium Chloride (Normal Saline Flush) 3 ml QSHIFT PRN IV AFTER MEDS AND BLOOD DRAWS; Start 10/13/16 at 09:30 Sodium Chloride 1,000 ml @ 1,000 mls/hr Q1H PRN IV hypotension; Start 10/14/16 at 08:01; Stop 10/14/16 at 14:00; Status DC Albumin Human 200 ml @ 200 mls/hr 1X PRN PRN IV Hypotension; Start 10/14/16 at 08:15; Stop 10/14/16 at 14:14; Status DC Acetaminophen (Tylenol) 500 mg 1X PRN PRN PO MILD PAIN / TEMP; Start 10/14/16 at 08:15; Stop 10/15/16 at 08:14; Status DC Diphenhydramine HCl (Benadryl) 25 mg 1X PRN PRN IV ITCHING; Start 10/14/16 at 08:15; Stop 10/15/16 at 08:14; Status DC Info (PHARMACY MONITORING -- do not chart) 1 each PRN DAILY PRN MC SEE COMMENTS ; Start 10/14/16 at 08:15; Status UNV Active Scripts Active Reported Tamsulosin Hcl 0.4 Mg Cap.er.24h 0.4 Mg PO DAILY Fluoxetine Hcl 20 Mg Capsule 20 Mg PO DAILY Aspirin 325 Mg Tablet 325 Mg PO DAILY Hydrocodone-Apap 7.5-325 (Hydrocodone Bit/Acetaminophen) 1 Each Tablet 1 Tab PO PRN Q4HRS PRN Renvela (Sevelamer Carbonate) 800 Mg Tablet 800 Mg PO TIDWMEALS Gabapentin 400 Mg Capsule 400 Mg PO TID Carvedilol 6.25 Mg Tablet 6.25 Mg PO DAILY Nystatin 1 Each Powder.ea. 1 Each PO TID Bumetanide 2 Mg Tablet 1 Tab PO DAILY Glimepiride 4 Mg Tablet 4 Mg PO DAILY Acetaminophen 325 Mg Capsule 650 Mg PO Q6HRS PRN Vitals/I & O Vital Sign - Last 24 Hours 10/14/16 10/14/16 10/14/16 10/14/16 12:00 13:27 16:00 16:03 Temp 97.9 97.9 97.9 97.9 Pulse 85 79 90 Resp 29 20 20 B/P (MAP) 113/79 (90) 111/62 108/51 (70) Pulse Ox 98 98 100 O2 Delivery Nasal Cannula Nasal Cannula Nasal Cannula O2 Flow Rate 2.0 2.0 2.0 10/14/16 10/14/16 10/14/16 10/14/16 16:35 17:52 20:00 20:00 Temp 98.2 98.2 Pulse 88 83 Resp 14 18 B/P (MAP) 102/56 (71) Pulse Ox 100 O2 Delivery Nasal Cannula Nasal Cannula O2 Flow Rate 2.0 2.0 10/14/16 10/14/16 10/14/16 10/15/16 20:50 21:25 23:00 00:00 Temp 98.3 98.2 98.3 98.2 Pulse 87 88 Resp 20 20 20 18 B/P (MAP) 112/60 (77) 106/55 (72) Pulse Ox 98 96 100 99 O2 Delivery Nasal Cannula Nasal Cannula Nasal Cannula O2 Flow Rate 2.0 3.0 3.0 3.0 10/15/16 10/15/16 10/15/16 10/15/16 03:00 05:50 06:50 07:00 Temp 98.8 97.9 98.8 97.9 Pulse 95 96 Resp 20 18 18 20 B/P (MAP) 118/63 (81) 124/59 (80) Pulse Ox 99 99 99 96 O2 Delivery Nasal Cannula Nasal Cannula Nasal Cannula Nasal Cannula O2 Flow Rate 3.0 3.0 3.0 3.0 10/15/16 10/15/16 09:06 10:00 Pulse 96 B/P (MAP) 124/59 Pulse Ox 96 O2 Delivery Nasal Cannula O2 Flow Rate 3.0 Intake and Output 10/14/16 10/14/16 10/15/16 15:00 23:00 07:00 Intake Total 350 ml 360 ml 400 ml Output Total 0 ml Balance 350 ml 360 ml 400 ml MILVIA CARRASCO MD Oct 15, 2016 11:22
[2016-10-15] MEDS ORDERED: MORPHINE SULFATE 4 MG/ML DISP.SYRIN. IV PRN (11:30)
--- NOTE | 2016-10-15 12:24 | PDOC ---
SUBJECTIVE ROS ESRD Does not known how but she pulled her HD Cath out CVS: no Orthopnea, no CP RESP: no SOB, no RODRIGUEZ GI: no Nausea, no Vomiting : n Dysuria, no Urgency OBJECTIVE Vital Signs Vital Signs Date Time Temp Pulse Resp B/P (MAP) Pulse Ox O2 Delivery O2 Flow Rate FiO2 10/15/16 11:00 97.8 93 20 120/63 (82) 96 Nasal Cannula 3.0 97.8 I & 0 Intake and Output 10/15/16 07:00 Intake Total 1110 ml Output Total 0 ml Balance 1110 ml Intake Oral 960 ml IV Total 150 ml Output Urine Total 0 ml PHYSICAL EXAM Physical Exam GEN: Awake, Oriented x 3, In no distress EYES: Vision Unchanged, Conjunctiva Normal EN: No EN Drainage, Mucous Membranes moist NECK: no JVD, min JVP, Supple, no Thyromegaly CVS: S1S2, + Murmur, No Gallop, No Rub,no Edema RESP: no Rales, no Rhonchi,no Acc. Muscle Use GI: BS + ve, NO Bruit, Non Tender, Non Distended : no CVA tenderness, no Suprapubic Tenderness DIAGNOSIS/ASSESSMENT Assessment & Plan ESRD: Current fluid and E-lyte status does not necessitate emergent need for dialysis. Will re-evaluate for dialysis in the am and continue on TTSat schedule. ANEMIA; Aranesp as ordered, Transfuse with next HD as needed HTN: Current BP meds as reviewed. See orders for changes. BONE & MINERAL: Follow phos and alter binder regimen as needed based on PO intake Groin Abscess - GPC ntoed - abx per ID HD Access: AVF not ready for use yet so will need Permacath today or in am Discussed Plan of Care with pt at bedside COMMENT/RELEVANT DATA Meds Current Medications Medications (Trade) Dose Ordered Sig/Susan Start Time Stop Time Status Last Admin Dose Admin Acetaminophen (Tylenol) 500 mg 1X PRN PRN 10/14/16 08:15 10/15/16 08:14 DC Acetaminophen/ Hydrocodone Bitart (Lortab 7.5/325) 1 tab PRN Q4HRS PRN 10/11/16 10:00 10/15/16 00:00 1 TAB Albumin Human 200 ml @ 200 mls/hr 1X PRN PRN 10/14/16 08:15 10/14/16 14:14 DC Bumetanide (Bumex) 1 mg DAILY 10/11/16 10:00 10/15/16 09:06 1 MG Calcium Gluconate 1000 mg/Sodium Chloride 110 ml @ 220 mls/hr 1X ONCE 10/10/16 23:00 10/10/16 23:29 DC 10/10/16 23:30 220 MLS/HR Carvedilol (Coreg) 6.25 mg BIDWMEALS 10/11/16 10:00 10/15/16 09:06 6.25 MG Ceftriaxone Sodium 50 ml @ 100 mls/hr 1X ONCE 10/10/16 23:00 10/10/16 23:29 DC 10/11/16 02:38 100 MLS/HR Darbepoetin Manuel (Aranesp) 60 mcg WEEKLYHS 10/11/16 21:00 10/11/16 21:27 60 MCG Dexamethasone Sodium Phosphate (Decadron) 20 mg STK-MED ONCE 10/13/16 08:06 10/13/16 08:07 DC Dextrose (Dextrose 50%-Water Syringe) 12.5 gm PRN Q15MIN PRN 10/11/16 10:00 10/13/16 07:41 12.5 GM Diphenhydramine HCl (Benadryl) 25 mg 1X PRN PRN 10/14/16 08:15 10/15/16 08:14 DC Ephedrine Sulfate (Akovaz) 50 mg STK-MED ONCE 10/13/16 08:22 10/13/16 08:23 DC Famotidine (Pepcid) 20 mg Q48H 10/12/16 21:00 10/14/16 20:35 20 MG Fentanyl Citrate (Fentanyl 2ml Vial) 50 mcg PRN Q5MIN PRN 10/13/16 07:45 10/14/16 07:44 DC Fluoxetine HCl (PROzac) 20 mg DAILY 10/11/16 10:00 10/15/16 09:06 20 MG Gabapentin (Neurontin) 100 mg TID 10/15/16 14:00 Glimepiride (Amaryl) 4 mg DAILYWBKFT 10/12/16 08:00 10/15/16 09:06 4 MG Heparin Sodium (Porcine) (Heparin Sq) 5,000 unit Q12HR 10/11/16 21:00 10/14/16 20:39 5,000 UNIT Hydromorphone HCl (Dilaudid) 0.5 mg PRN Q10MIN PRN 10/13/16 07:45 10/14/16 07:44 DC Info (PHARMACY MONITORING -- do not chart) 1 each PRN DAILY PRN 10/14/16 08:15 UNV Insulin Aspart (NovoLOG) 0-9 UNITS TIDWMEALS 10/11/16 12:00 10/14/16 17:57 4 UNITS Insulin Human Regular (NovoLIN R VIAL) 10 unit 1X ONCE 10/10/16 23:00 10/10/16 23:01 DC 10/11/16 00:41 10 UNIT Iohexol (Omnipaque 350 Mg/ml) 100 ml 1X ONCE 10/11/16 16:00 10/11/16 16:01 DC Lidocaine HCl 2 ml PRN 1X PRN 10/13/16 07:45 10/14/16 07:44 DC Lidocaine HCl (Lidocaine Pf 2% Vial) 5 ml STK-MED ONCE 10/13/16 07:31 10/13/16 07:32 DC Midazolam HCl (Versed) 2 mg STK-MED ONCE 10/13/16 07:31 10/13/16 07:32 DC Morphine Sulfate 2 mg PRN Q4HRS PRN 10/15/16 11:30 Nystatin (Nystop) 1 gabrielle TID 10/12/16 13:27 10/14/16 20:36 1 GABRIELLE Ondansetron HCl (Zofran) 4 mg PRN Q6HRS PRN 10/13/16 07:45 10/14/16 07:44 DC Piperacillin Sod/ Tazobactam Sod (Zosyn Per Pharmacy) 1 each PRN DAILY PRN 10/11/16 13:00 Piperacillin Sod/ Tazobactam Sod 2.25 gm/Sodium Chloride 50 ml @ 100 mls/hr Q8HRS 10/11/16 14:00 10/15/16 10:12 DC 10/15/16 05:49 100 MLS/HR Prochlorperazine Edisylate (Compazine) 5 mg PACU PRN PRN 10/13/16 07:45 10/14/16 07:44 DC Propofol 20 ml @ As Directed STK-MED ONCE 10/13/16 07:31 10/13/16 07:32 DC Ringer's Solution 1,000 ml @ 30 mls/hr Q24H 10/13/16 07:43 10/13/16 19:42 DC Sevelamer Carbonate (Renvela) 800 mg TIDWMEALS 10/11/16 12:00 10/15/16 09:06 800 MG Sevoflurane (Ultane) 30 ml STK-MED ONCE 10/13/16 08:41 10/13/16 08:42 DC Sodium Bicarbonate 50 meq 1X ONCE 10/10/16 23:00 10/10/16 23:01 DC 10/11/16 00:34 50 MEQ Sodium Chloride 1,000 ml @ 1,000 mls/hr Q1H PRN 10/14/16 08:01 10/14/16 14:00 DC Sodium Chloride (Normal Saline Flush) 3 ml QSHIFT PRN 10/13/16 09:30 Tamsulosin HCl (Flomax) 0.4 mg DAILY 10/11/16 10:00 10/15/16 09:06 0.4 MG Vancomycin HCl (Vanco Per Pharmacy) 1 each PRN DAILY PRN 10/11/16 00:00 10/14/16 08:05 1 EACH Vancomycin HCl 1.5 gm/Sodium Chloride 500 ml @ 250 mls/hr Q48H 10/13/16 01:00 Cancel Vancomycin HCl 500 mg/Sodium Chloride 100 ml @ 100 mls/hr QTUTHSA 10/14/16 16:00 10/14/16 15:38 100 MLS/HR Vancomycin HCl 2 gm/Sodium Chloride 500 ml @ 250 mls/hr 1X ONCE 10/10/16 23:00 10/11/16 00:59 DC 10/11/16 00:44 250 MLS/HR Lab Laboratory Tests Test 10/14/16 13:14 10/14/16 17:41 10/14/16 20:43 10/15/16 07:43 Glucose (Fingerstick) 169 mg/dL (70-99) 187 mg/dL (70-99) 138 mg/dL (70-99) 136 mg/dL (70-99) Test 10/15/16 08:40 10/15/16 11:38 Prothrombin Time 14.5 SEC (11.7-14.0) Prothromb Time International Ratio 1.2 (0.8-1.1) Glucose (Fingerstick) 99 mg/dL (70-99) GANGA TANG MD Oct 15, 2016 12:24
[2016-10-15] MEDS ORDERED: MAGNESIUM SULFATE 2GM 50 ML IV PRN (12:30)
[2016-10-15] MEDS: NYSTATIN TOPICAL POWDER 15GM BOTTLE. TP SCH ×3 (13:01→20:51)
[2016-10-15] MEDS ORDERED: HEPARIN for IV BOLUS 10,000 UNIT/10 ML VIAL. ONE (13:25)
[2016-10-15] MEDS ORDERED: LIDOCAINE 2%/EPI 1:100,000 20 ML VIAL. ONE (13:25)
[2016-10-15] MEDS ORDERED: GABAPENTIN 100 MG CAPSULE. PO SCH (14:00)
[2016-10-15] MEDS ORDERED: fentaNYL PF VIAL 250 MCG/5 ML VIAL ONE (14:05)
[2016-10-15] MEDS ORDERED: MIDAZOLAM HCL/PF 5 MG/5 ML VIAL. ONE (14:05)
[2016-10-15] MEDS ORDERED: MIDAZOLAM HCL/PF 5 MG/5 ML VIAL. IV ONE (14:30)
[2016-10-15] MEDS ORDERED: LIDOCAINE 2%/EPI 1:100,000 20 ML VIAL. IJ ONE (14:30)
[2016-10-15] MEDS ORDERED: HEPARIN for IV BOLUS 10,000 UNIT/10 ML VIAL. IV ONE (14:30)
[2016-10-15] MEDS ORDERED: fentaNYL PF VIAL 100 MCG/2 ML VIAL IM ONE (14:30)
--- NOTE | 2016-10-15 14:35 | PDOC ---
MODERATE SEDATION ASSESSMENT RISKS/ALTERNATIVES Risks/Alternatives Risks and alternatives of this type of sedation and procedure discussed with: RISK/ALTERNATIVES: Patient H & P ON CHART H & P H & P on chart and reviewed for co-morbid conditions and appropriate labs. H&P ON CHART: Yes STATUS PREG STATUS ASSESSED: Yes MEDS/ALLERGIES REVIEWED Meds/Allergies Reviewed Medications and Allergies including time and route of recently administered narcotics and sedatives. MEDS/ALLERGIES REVIEWED: Yes ASA RATING ASA RATING: II AIRWAY ASSESSMENT Airway Assessment Airway patency, oral function limitations, presence of caps, crowns, dentures, partials, and ability to extend neck assessed. AIRWAY ASSESSMENT: Yes MALLAMPATI SCORE MALLAMPATI SCORE: II PRE-SEDATION ASSESSMENT PRE-SEDATION ASSESSMENT: Yes DAVE SNEED MD Oct 15, 2016 14:35
--- NOTE | 2016-10-15 14:36 | PDOC ---
BRIEF OPERATIVE NOTE Pre-Op Diagnosis CRF Post-Op Diagnosis same Procedure Performed Tunnelled HD Catheter Surgeon Nicole Anesthesia Type: Conscious Sedation Findings 28cm Palindrome with excellent manual flows Complications No immediate DAVE SNEED MD Oct 15, 2016 14:36
[2016-10-15] MEDS ORDERED: fentaNYL PF VIAL 250 MCG/5 ML VIAL IV ONE (15:00)
--- NOTE | 2016-10-15 15:39 | RAD ---
Procedure: Tunneled hemodialysis catheter placement Clinical Indication: 56-year-old requiring hemodialysis Sedation: Conscious sedation was administered for 13 minutes. The patient was monitored by a qualified independent observer throughout the time of sedation. Please refer to the medical record for exact doses of medications utilized to achieve moderate sedation. Antibiotics: Antibiotic was administered intravenously within 1 hour of the procedure start time. Fluoro Time: 1.5 minutes. Images: 1 Contrast: None Sterility: All elements of maximal sterile barrier technique including the use of a cap, mask, sterile gown, sterile gloves, large sterile sheet, appropriate hand hygiene, and 2% chlorhexidine for cutaneous antisepsis (or acceptable alternative antiseptic per current guidelines) were followed for this procedure. Consent: The procedure was explained in its entirety to the patient or the patients designated employee relations representative by a member of the treatment team, including a discussion of the risks, benefits and commonly accepted alternatives to the procedure, as well as the expected consequences of no therapy whatsoever. Discussion of the risks included, but was not limited to, those that are most frequent and those that are rare but possibly severe or life-threatening, as well as the possibility of unforeseen complications. Technique and Findings: Following informed consent, the patient was prepped and draped in the usual sterile fashion. Ultrasound interrogation of the left neck revealed patency and compressibility of the left internal jugular vein. A 21-gauge micropuncture was then used to gain access to this vein under ultrasound guidance. A hard copy ultrasound image was recorded. The needle was exchanged over a wire for a 4 Greek sheath which was used to guide an Amplatz wire into the IVC. The skin over the left anterior chest wall was copiously anesthetized with 1% Lidocaine plus Epinephrine and a small dermatotomy was made. A 28 cm Duraflow tunneled hemodialysis catheter was then tunneled subcutaneously towards the neck dermatotomy and deployed through a large caliber peel-away sheath under fluoroscopic guidance such that the distal tip resided in the mid right atrium. Manual flow rates were assessed and found to be excellent. The catheter was then flushed, packed with Heparin, capped, and sutured to the skin. The neck dermatotomy was closed with Dermabond. Complications: No immediate Impression: 1. Tunneled hemodialysis catheter placement as described. This catheter demonstrates excellent manual flow rates and is suitable for use immediately.
[2016-10-16] VITALS (8 sets, daily range): BP systolic 107–142; BP diastolic 20–69
[2016-10-16] MEDS: HYDROcodone/APAP 7.5/325MG 1 TAB TABLET PO PRN ×3 (00:56→19:57)
[2016-10-16 04:24] LABS: BASO # 0.1 x10^3/uL (0.0-0.2); BASO % 1 % (0-3); EOS % 4 % (0-3); HEMATOCRIT 29.5 % (36.0-47.0); HEMOGLOBIN 9.7 g/dL (12.0-15.5); LYMPH # 0.9 x10^3/uL (1.0-4.8); LYMPH % 15 % (24-48); MEAN CORPUSCULAR HEMOGLOBIN 31 pg (25-35); MEAN CORPUSCULAR HGB CONC 33 g/dL (31-37); MEAN CORPUSCULAR VOLUME 96 fL (79-100); MONO % 11 % (0-9); NEUT % 69 % (31-73); PLATELET COUNT 163 x10^3/uL (140-400); RED BLOOD COUNT 3.07 x10^6/uL (3.50-5.40); RED CELL DISTRIBUTION WIDTH 17.8 % (11.5-14.5)
[2016-10-16 04:45] LABS: ALBUMIN 2.5 g/dL (3.4-5.0); CALCIUM 8.5 mg/dL (8.5-10.1); CREATININE 5.1 mg/dL (0.6-1.0); GFR 8.8; MAGNESIUM 2.5 mg/dL (1.8-2.4); PHOSPHORUS 7.7 mg/dL (2.6-4.7); POTASSIUM 4.5 mmol/L (3.5-5.1)
[2016-10-16] MEDS: INSULIN ASPART 300 UNITS/3 ML INSULN.PEN SQ SCH ×3 (08:00→16:30)
--- NOTE | 2016-10-16 08:30 | PDOC ---
Infectious Disease Note Subjective Subjective Sleepy today Still some pain in groin but better Denies diarrhea ROS ROS GEN: Denies fevers, chills, sweats HEENT: Denies blurred vision, sore throat CV: Denies chest pain RESP: Denies shortness of air, cough GI: Denies n/v/d NEURO: Denies confusion, dizziness MSK: Denies weakness, joint pain/swelling Vital Sign Vital Signs Vital Signs Date Time Temp Pulse Resp B/P (MAP) Pulse Ox O2 Delivery O2 Flow Rate FiO2 10/16/16 07:16 18 99 Nasal Cannula 3.0 10/16/16 07:00 97.5 92 142/69 (93) 97.5 Physical Exam PHYSICAL EXAM GENERAL: Lying down, NAD, Looks ok but more sleepy today HEENT: Oral mucosa pink and dry. LUNGS: Clear anteriorly. HEART: Normal S1 and S2. No murmur appreciated. ABDOMEN: Obese. Bowel sounds are present, soft. No grimace or guarding to palpation. EXTREMITIES: No gross edema or cyanosis. Right upper extremity AV fistula unremarkable with min thrill and bruit present. SKIN: Without rash. Right groin post-op dressing dry and intact. No erythema/ warmth. Less tender. 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 HDC - Right out area without redness, swelling or drainage/tenderness, Left side placement is clean Labs Lab Laboratory Tests Test 10/15/16 08:40 10/15/16 11:38 10/15/16 16:32 10/15/16 20:44 Prothrombin Time 14.5 SEC (11.7-14.0) Prothromb Time International Ratio 1.2 (0.8-1.1) Glucose (Fingerstick) 99 mg/dL (70-99) 101 mg/dL (70-99) 113 mg/dL (70-99) Test 10/16/16 03:50 10/16/16 07:37 10/16/16 08:24 White Blood Count 6.0 x10^3/uL (4.0-11.0) Red Blood Count 3.07 x10^6/uL (3.50-5.40) Hemoglobin 9.7 g/dL (12.0-15.5) Hematocrit 29.5 % (36.0-47.0) Mean Corpuscular Volume 96 fL (79-100) Mean Corpuscular Hemoglobin 31 pg (25-35) Mean Corpuscular Hemoglobin Concent 33 g/dL (31-37) Red Cell Distribution Width 17.8 % (11.5-14.5) Platelet Count 163 x10^3/uL (140-400) Neutrophils (%) (Auto) 69 % (31-73) Lymphocytes (%) (Auto) 15 % (24-48) Monocytes (%) (Auto) 11 % (0-9) Eosinophils (%) (Auto) 4 % (0-3) Basophils (%) (Auto) 1 % (0-3) Neutrophils # (Auto) 4.1 x10^3uL (1.8-7.7) Lymphocytes # (Auto) 0.9 x10^3/uL (1.0-4.8) Monocytes # (Auto) 0.6 x10^3/uL (0.0-1.1) Eosinophils # (Auto) 0.2 x10^3/uL (0.0-0.7) Basophils # (Auto) 0.1 x10^3/uL (0.0-0.2) Sodium Level 133 mmol/L (136-145) Potassium Level 4.5 mmol/L (3.5-5.1) Chloride Level 95 mmol/L (98-107) Carbon Dioxide Level 28 mmol/L (21-32) Anion Gap 10 (6-14) Blood Urea Nitrogen 54 mg/dL (7-20) Creatinine 5.1 mg/dL (0.6-1.0) Estimated GFR (Cockcroft-Gault) 8.8 Glucose Level 67 mg/dL (70-99) Calcium Level 8.5 mg/dL (8.5-10.1) Phosphorus Level 7.7 mg/dL (2.6-4.7) Magnesium Level 2.5 mg/dL (1.8-2.4) Albumin 2.5 g/dL (3.4-5.0) Glucose (Fingerstick) 47 mg/dL (70-99) 68 mg/dL (70-99) Objective Assessment Sepsis, POA Cellulitis and abscess right groin near surgical site (11.5 x 7.1 x 4.5 cm on CTA) , s/p I and D, 8/14th Intra-op cultures pending - + MRSA Leukocytosis - better Encephalopathy- improved ERSD on HD DM Anemia s/p PRBCs, 10/10 MRSA nares positive Plan Plan of Care Cont Vanc with HD through 10/22 Ok to transfer from ID standpoint MICHAEL SANTOS MD Oct 16, 2016 08:30
[2016-10-16] MEDS: BUMETANIDE 1 MG TABLET. PO SCH (08:56)
[2016-10-16] MEDS: GLIMEPIRIDE 2 MG TABLET. PO SCH (08:56)
[2016-10-16] MEDS: SEVELAMER CARBONATE 800 MG TABLET. PO SCH ×3 (08:56→18:35)
[2016-10-16] MEDS: FLUoxetine HCL 20 MG CAPSULE PO SCH (08:56)
[2016-10-16] MEDS: TAMSULOSIN 0.4 MG CAP.ER.24H. PO SCH (08:56)
[2016-10-16] MEDS: CARVEDILOL 6.25 MG TABLET. PO SCH ×2 (08:58→18:36)
[2016-10-16] MEDS: NYSTATIN TOPICAL POWDER 15GM BOTTLE. TP SCH ×3 (09:00→19:58)
[2016-10-16] MEDS: HEPARIN PF for SUB-Q USE 5,000 UNIT/0.5 ML VIAL. SQ SCH ×2 (09:01→20:07)
--- NOTE | 2016-10-16 10:02 | PDOC ---
SURGICAL PROGRESS NOTE Subjective fell this AM, attempted to get up on own groin pain wound dressing change yesterday Vital Signs Vital Signs Date Time Temp Pulse Resp B/P (MAP) Pulse Ox O2 Delivery O2 Flow Rate FiO2 10/16/16 08:58 92 142/69 10/16/16 07:16 18 99 Nasal Cannula 3.0 10/16/16 07:00 97.5 97.5 I&O Intake and Output 10/16/16 07:00 Intake Total 350 ml Output Total 250 ml Balance 100 ml Intake Oral 350 ml Output Urine Total 250 ml # Voids 1 General: Alert, Oriented X3, Cooperative, No acute distress Skin: Other (right groin wound, clean, drain in place, packing in place, some induration still ) Labs Laboratory Tests Test 10/14/16 13:14 10/14/16 17:41 10/14/16 20:43 10/15/16 07:43 Glucose (Fingerstick) 169 mg/dL (70-99) 187 mg/dL (70-99) 138 mg/dL (70-99) 136 mg/dL (70-99) Test 10/15/16 08:40 10/15/16 11:38 10/15/16 16:32 10/15/16 20:44 Prothrombin Time 14.5 SEC (11.7-14.0) Prothromb Time International Ratio 1.2 (0.8-1.1) Glucose (Fingerstick) 99 mg/dL (70-99) 101 mg/dL (70-99) 113 mg/dL (70-99) Test 10/16/16 03:50 10/16/16 07:37 10/16/16 08:24 White Blood Count 6.0 x10^3/uL (4.0-11.0) Red Blood Count 3.07 x10^6/uL (3.50-5.40) Hemoglobin 9.7 g/dL (12.0-15.5) Hematocrit 29.5 % (36.0-47.0) Mean Corpuscular Volume 96 fL (79-100) Mean Corpuscular Hemoglobin 31 pg (25-35) Mean Corpuscular Hemoglobin Concent 33 g/dL (31-37) Red Cell Distribution Width 17.8 % (11.5-14.5) Platelet Count 163 x10^3/uL (140-400) Neutrophils (%) (Auto) 69 % (31-73) Lymphocytes (%) (Auto) 15 % (24-48) Monocytes (%) (Auto) 11 % (0-9) Eosinophils (%) (Auto) 4 % (0-3) Basophils (%) (Auto) 1 % (0-3) Neutrophils # (Auto) 4.1 x10^3uL (1.8-7.7) Lymphocytes # (Auto) 0.9 x10^3/uL (1.0-4.8) Monocytes # (Auto) 0.6 x10^3/uL (0.0-1.1) Eosinophils # (Auto) 0.2 x10^3/uL (0.0-0.7) Basophils # (Auto) 0.1 x10^3/uL (0.0-0.2) Sodium Level 133 mmol/L (136-145) Potassium Level 4.5 mmol/L (3.5-5.1) Chloride Level 95 mmol/L (98-107) Carbon Dioxide Level 28 mmol/L (21-32) Anion Gap 10 (6-14) Blood Urea Nitrogen 54 mg/dL (7-20) Creatinine 5.1 mg/dL (0.6-1.0) Estimated GFR (Cockcroft-Gault) 8.8 Glucose Level 67 mg/dL (70-99) Calcium Level 8.5 mg/dL (8.5-10.1) Phosphorus Level 7.7 mg/dL (2.6-4.7) Magnesium Level 2.5 mg/dL (1.8-2.4) Albumin 2.5 g/dL (3.4-5.0) Glucose (Fingerstick) 47 mg/dL (70-99) 68 mg/dL (70-99) Laboratory Tests Test 10/15/16 11:38 10/15/16 16:32 10/15/16 20:44 10/16/16 03:50 Glucose (Fingerstick) 99 mg/dL (70-99) 101 mg/dL (70-99) 113 mg/dL (70-99) White Blood Count 6.0 x10^3/uL (4.0-11.0) Red Blood Count 3.07 x10^6/uL (3.50-5.40) Hemoglobin 9.7 g/dL (12.0-15.5) Hematocrit 29.5 % (36.0-47.0) Mean Corpuscular Volume 96 fL (79-100) Mean Corpuscular Hemoglobin 31 pg (25-35) Mean Corpuscular Hemoglobin Concent 33 g/dL (31-37) Red Cell Distribution Width 17.8 % (11.5-14.5) Platelet Count 163 x10^3/uL (140-400) Neutrophils (%) (Auto) 69 % (31-73) Lymphocytes (%) (Auto) 15 % (24-48) Monocytes (%) (Auto) 11 % (0-9) Eosinophils (%) (Auto) 4 % (0-3) Basophils (%) (Auto) 1 % (0-3) Neutrophils # (Auto) 4.1 x10^3uL (1.8-7.7) Lymphocytes # (Auto) 0.9 x10^3/uL (1.0-4.8) Monocytes # (Auto) 0.6 x10^3/uL (0.0-1.1) Eosinophils # (Auto) 0.2 x10^3/uL (0.0-0.7) Basophils # (Auto) 0.1 x10^3/uL (0.0-0.2) Sodium Level 133 mmol/L (136-145) Potassium Level 4.5 mmol/L (3.5-5.1) Chloride Level 95 mmol/L (98-107) Carbon Dioxide Level 28 mmol/L (21-32) Anion Gap 10 (6-14) Blood Urea Nitrogen 54 mg/dL (7-20) Creatinine 5.1 mg/dL (0.6-1.0) Estimated GFR (Cockcroft-Gault) 8.8 Glucose Level 67 mg/dL (70-99) Calcium Level 8.5 mg/dL (8.5-10.1) Phosphorus Level 7.7 mg/dL (2.6-4.7) Magnesium Level 2.5 mg/dL (1.8-2.4) Albumin 2.5 g/dL (3.4-5.0) Test 10/16/16 07:37 10/16/16 08:24 Glucose (Fingerstick) 47 mg/dL (70-99) 68 mg/dL (70-99) Assessment/Plan s/p I&D, continue abx, wound care Problems: ANDREA MCCLELLAN APRN Oct 16, 2016 10:02
--- NOTE | 2016-10-16 10:20 | PDOC ---
SUBJECTIVE ROS ESRD Not feeling too good today, feels weak lashell with OOB CVS: no Orthopnea, no CP RESP: no SOB, no RODRIGUEZ GI: no Nausea, no Vomiting : no Dysuria, no Urgency OBJECTIVE Vital Signs Vital Signs Date Time Temp Pulse Resp B/P (MAP) Pulse Ox O2 Delivery O2 Flow Rate FiO2 10/16/16 08:58 92 142/69 10/16/16 07:16 18 99 Nasal Cannula 3.0 10/16/16 07:00 97.5 97.5 I & 0 Intake and Output 10/16/16 07:00 Intake Total 350 ml Output Total 250 ml Balance 100 ml Intake Oral 350 ml Output Urine Total 250 ml # Voids 1 PHYSICAL EXAM Physical Exam GEN: Awake, Oriented x 3, In no distress EYES: Vision Unchanged, Conjunctiva Normal EN: No EN Drainage, Mucous Membranes moist NECK: no JVD, min JVP, Supple, no Thyromegaly CVS: S1S2, + Murmur, No Gallop, No Rub,no Edema RESP: no Rales, no Rhonchi,no Acc. 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 See orders for changes. BONE & MINERAL: phos noted and binder regimen ^ed HD Access: AVF not ready for use yet, now s/p Permacath placement, Discussed Plan of Care with pt at bedside COMMENT/RELEVANT DATA Meds Current Medications Medications (Trade) Dose Ordered Sig/Susan Start Time Stop Time Status Last Admin Dose Admin Acetaminophen (Tylenol) 500 mg 1X PRN PRN 10/14/16 08:15 10/15/16 08:14 DC Acetaminophen/ Hydrocodone Bitart (Lortab 7.5/325) 1 tab PRN Q4HRS PRN 10/11/16 10:00 10/16/16 06:13 1 TAB Albumin Human 200 ml @ 200 mls/hr 1X PRN PRN 10/14/16 08:15 10/14/16 14:14 DC Bumetanide (Bumex) 1 mg DAILY 10/11/16 10:00 10/16/16 08:56 1 MG Calcium Gluconate 1000 mg/Sodium Chloride 110 ml @ 220 mls/hr 1X ONCE 10/10/16 23:00 10/10/16 23:29 DC 10/10/16 23:30 220 MLS/HR Carvedilol (Coreg) 6.25 mg BIDWMEALS 10/11/16 10:00 10/16/16 08:58 6.25 MG Cefazolin Sodium 50 ml @ 100 mls/hr 1X ONCE 10/15/16 15:00 10/15/16 15:29 DC 10/15/16 14:50 100 MLS/HR Ceftriaxone Sodium 50 ml @ 100 mls/hr 1X ONCE 10/10/16 23:00 10/10/16 23:29 DC 10/11/16 02:38 100 MLS/HR Darbepoetin Manuel (Aranesp) 60 mcg WEEKLYHS 10/11/16 21:00 10/11/16 21:27 60 MCG Dexamethasone Sodium Phosphate (Decadron) 20 mg STK-MED ONCE 10/13/16 08:06 10/13/16 08:07 DC Dextrose (Dextrose 50%-Water Syringe) 12.5 gm PRN Q15MIN PRN 10/11/16 10:00 10/13/16 07:41 12.5 GM Diphenhydramine HCl (Benadryl) 25 mg 1X PRN PRN 10/14/16 08:15 10/15/16 08:14 DC Ephedrine Sulfate (Akovaz) 50 mg STK-MED ONCE 10/13/16 08:22 10/13/16 08:23 DC Famotidine (Pepcid) 20 mg Q48H 10/12/16 21:00 10/14/16 20:35 20 MG Fentanyl Citrate (Fentanyl 2ml Vial) 250 mcg 1X ONCE 10/15/16 14:30 10/15/16 14:31 DC Fentanyl Citrate (Fentanyl 5ml Vial) 50 mcg 1X ONCE 10/15/16 15:00 10/15/16 15:01 DC 10/15/16 14:51 50 MCG Fluoxetine HCl (PROzac) 20 mg DAILY 10/11/16 10:00 10/16/16 08:56 20 MG Gabapentin (Neurontin) 300 mg QTUTHSA 10/16/16 16:00 Glimepiride (Amaryl) 2 mg DAILYWBKFT 10/16/16 08:30 10/16/16 08:56 2 MG Heparin Sodium (Porcine) (Heparin Sodium) 4,000 unit 1X ONCE 10/15/16 14:30 10/15/16 14:31 DC 10/15/16 14:30 4,200 UNIT Heparin Sodium (Porcine) (Heparin Sq) 5,000 unit Q12HR 10/11/16 21:00 10/16/16 09:01 5,000 UNIT Heparin Sodium/ Sodium Chloride 1,000 unit 1X ONCE 10/15/16 14:30 10/15/16 14:31 DC 10/15/16 14:30 1,000 UNIT Hydromorphone HCl (Dilaudid) 0.5 mg PRN Q10MIN PRN 10/13/16 07:45 10/14/16 07:44 DC Info (PHARMACY MONITORING -- do not chart) 1 each PRN DAILY PRN 10/14/16 08:15 UNV Insulin Aspart (NovoLOG) 0-9 UNITS TIDWMEALS 10/11/16 12:00 10/14/16 17:57 4 UNITS Insulin Human Regular (NovoLIN R VIAL) 10 unit 1X ONCE 10/10/16 23:00 10/10/16 23:01 DC 10/11/16 00:41 10 UNIT Iohexol (Omnipaque 350 Mg/ml) 100 ml 1X ONCE 10/11/16 16:00 10/11/16 16:01 DC Lidocaine HCl 2 ml PRN 1X PRN 10/13/16 07:45 10/14/16 07:44 DC Lidocaine HCl (Lidocaine Pf 2% Vial) 5 ml STK-MED ONCE 10/13/16 07:31 10/13/16 07:32 DC Lidocaine/ Epinephrine (Xylocaine 2%-Epi 1:100,000) 20 ml 1X ONCE 10/15/16 14:30 10/15/16 14:31 DC 10/15/16 14:45 8 ML Magnesium Sulfate/ Dextrose 50 ml @ 25 mls/hr PRN DAILY PRN 10/15/16 12:30 Midazolam HCl (Versed) 5 mg 1X ONCE 10/15/16 14:30 10/15/16 14:31 DC 10/15/16 14:46 1 MG Morphine Sulfate 2 mg PRN Q4HRS PRN 10/15/16 11:30 Nystatin (Nystop) 1 gabrielle TID 10/12/16 13:27 10/15/16 20:51 1 GABRIELLE Ondansetron HCl (Zofran) 4 mg PRN Q6HRS PRN 10/13/16 07:45 10/14/16 07:44 DC Piperacillin Sod/ Tazobactam Sod (Zosyn Per Pharmacy) 1 each PRN DAILY PRN 10/11/16 13:00 10/15/16 13:02 DC Piperacillin Sod/ Tazobactam Sod 2.25 gm/Sodium Chloride 50 ml @ 100 mls/hr Q8HRS 10/11/16 14:00 10/15/16 10:12 DC 10/15/16 05:49 100 MLS/HR Prochlorperazine Edisylate (Compazine) 5 mg PACU PRN PRN 10/13/16 07:45 10/14/16 07:44 DC Propofol 20 ml @ As Directed STK-MED ONCE 10/13/16 07:31 10/13/16 07:32 DC Ringer's Solution 1,000 ml @ 30 mls/hr Q24H 10/13/16 07:43 10/13/16 19:42 DC Sevelamer Carbonate (Renvela) 800 mg TIDWMEALS 10/11/16 12:00 10/16/16 08:56 800 MG Sevoflurane (Ultane) 30 ml STK-MED ONCE 10/13/16 08:41 10/13/16 08:42 DC Sodium Bicarbonate 50 meq 1X ONCE 10/10/16 23:00 10/10/16 23:01 DC 10/11/16 00:34 50 MEQ Sodium Chloride 1,000 ml @ 1,000 mls/hr Q1H PRN 10/14/16 08:01 10/14/16 14:00 DC Sodium Chloride (Normal Saline Flush) 3 ml QSHIFT PRN 10/13/16 09:30 Tamsulosin HCl (Flomax) 0.4 mg DAILY 10/11/16 10:00 10/16/16 08:56 0.4 MG Vancomycin HCl (Vanco Per Pharmacy) 1 each PRN DAILY PRN 10/11/16 00:00 10/14/16 08:05 1 EACH Vancomycin HCl 1.5 gm/Sodium Chloride 500 ml @ 250 mls/hr Q48H 10/13/16 01:00 Cancel Vancomycin HCl 500 mg/Sodium Chloride 100 ml @ 100 mls/hr QTUTHSA 10/14/16 16:00 10/14/16 15:38 100 MLS/HR Vancomycin HCl 2 gm/Sodium Chloride 500 ml @ 250 mls/hr 1X ONCE 10/10/16 23:00 10/11/16 00:59 DC 10/11/16 00:44 250 MLS/HR Lab Laboratory Tests Test 10/15/16 11:38 10/15/16 16:32 10/15/16 20:44 10/16/16 03:50 Glucose (Fingerstick) 99 mg/dL (70-99) 101 mg/dL (70-99) 113 mg/dL (70-99) White Blood Count 6.0 x10^3/uL (4.0-11.0) Red Blood Count 3.07 x10^6/uL (3.50-5.40) Hemoglobin 9.7 g/dL (12.0-15.5) Hematocrit 29.5 % (36.0-47.0) Mean Corpuscular Volume 96 fL (79-100) Mean Corpuscular Hemoglobin 31 pg (25-35) Mean Corpuscular Hemoglobin Concent 33 g/dL (31-37) Red Cell Distribution Width 17.8 % (11.5-14.5) Platelet Count 163 x10^3/uL (140-400) Neutrophils (%) (Auto) 69 % (31-73) Lymphocytes (%) (Auto) 15 % (24-48) Monocytes (%) (Auto) 11 % (0-9) Eosinophils (%) (Auto) 4 % (0-3) Basophils (%) (Auto) 1 % (0-3) Neutrophils # (Auto) 4.1 x10^3uL (1.8-7.7) Lymphocytes # (Auto) 0.9 x10^3/uL (1.0-4.8) Monocytes # (Auto) 0.6 x10^3/uL (0.0-1.1) Eosinophils # (Auto) 0.2 x10^3/uL (0.0-0.7) Basophils # (Auto) 0.1 x10^3/uL (0.0-0.2) Sodium Level 133 mmol/L (136-145) Potassium Level 4.5 mmol/L (3.5-5.1) Chloride Level 95 mmol/L (98-107) Carbon Dioxide Level 28 mmol/L (21-32) Anion Gap 10 (6-14) Blood Urea Nitrogen 54 mg/dL (7-20) Creatinine 5.1 mg/dL (0.6-1.0) Estimated GFR (Cockcroft-Gault) 8.8 Glucose Level 67 mg/dL (70-99) Calcium Level 8.5 mg/dL (8.5-10.1) Phosphorus Level 7.7 mg/dL (2.6-4.7) Magnesium Level 2.5 mg/dL (1.8-2.4) Albumin 2.5 g/dL (3.4-5.0) Test 10/16/16 07:37 10/16/16 08:24 Glucose (Fingerstick) 47 mg/dL (70-99) 68 mg/dL (70-99) GANGA TANG MD Oct 16, 2016 10:20
--- NOTE | 2016-10-16 12:51 | PDOC ---
PROGRESS NOTES Chief Complaint Chief Complaint 1. R groin abscess s/p I and D with indwelling CELIA drain, MRSA in wound cx 2. sepsis 3. acute metabolic encephalopathy, multifactorial, sepsis, meds 4. ESRD on HD 5. DM2, with hypoglycemia 6. morbid obesity, BMI 45 w/ mod malnutrition 7. weakness and debility 8. anemia of CKD plan: fu with renal, sx, id on vanco with HD cont nanci drainage local wound care decrease amaryl to 2mg daily , ssi got a new HD cath on upper left chest PTOT recommend SNF, sw fu dvt ppx History of Present Illness History of Present Illness Transferred out of ICU 10/14 R groin looks better, CELIA drain indwelling still lots of discharge Pt lives at home, needs SNU definitely - SW aware Sleepy - got some morphine prior to dressing change hypoglycemia mild lethargic x2 days Vitals Vitals Vital Signs Date Time Temp Pulse Resp B/P (MAP) Pulse Ox O2 Delivery O2 Flow Rate FiO2 10/16/16 12:00 98.6 87 20 119/54 (75) 100 Room Air 98.6 10/16/16 08:00 3.0 Physical Exam General: Alert, Oriented X3, Cooperative, No acute distress Heart: Regular rate, Normal S1, Normal S2, Other (tachycardic,) Lungs: Clear, Other (No RRW) Abdomen: Normal bowel sounds, Soft, No tenderness Extremities: No clubbing, Other (right medial groin hematoma is stable, cellulitis is improved, but the patient is still markedly tender to palpation over this area, there is no skin breakdown, there is no ulceration, there is no gangrenous changes, there is no crepitance overlying the hematoma, she has a palpable thrill in her right upper extremity AV fistula which is still maturing) Skin: Other (right groin wound, clean, drain in place, packing in place, some induration still ) Labs LABS Laboratory Tests Test 10/15/16 16:32 10/15/16 20:44 10/16/16 03:50 10/16/16 07:37 Glucose (Fingerstick) 101 mg/dL (70-99) 113 mg/dL (70-99) 47 mg/dL (70-99) White Blood Count 6.0 x10^3/uL (4.0-11.0) Red Blood Count 3.07 x10^6/uL (3.50-5.40) Hemoglobin 9.7 g/dL (12.0-15.5) Hematocrit 29.5 % (36.0-47.0) Mean Corpuscular Volume 96 fL (79-100) Mean Corpuscular Hemoglobin 31 pg (25-35) Mean Corpuscular Hemoglobin Concent 33 g/dL (31-37) Red Cell Distribution Width 17.8 % (11.5-14.5) Platelet Count 163 x10^3/uL (140-400) Neutrophils (%) (Auto) 69 % (31-73) Lymphocytes (%) (Auto) 15 % (24-48) Monocytes (%) (Auto) 11 % (0-9) Eosinophils (%) (Auto) 4 % (0-3) Basophils (%) (Auto) 1 % (0-3) Neutrophils # (Auto) 4.1 x10^3uL (1.8-7.7) Lymphocytes # (Auto) 0.9 x10^3/uL (1.0-4.8) Monocytes # (Auto) 0.6 x10^3/uL (0.0-1.1) Eosinophils # (Auto) 0.2 x10^3/uL (0.0-0.7) Basophils # (Auto) 0.1 x10^3/uL (0.0-0.2) Sodium Level 133 mmol/L (136-145) Potassium Level 4.5 mmol/L (3.5-5.1) Chloride Level 95 mmol/L (98-107) Carbon Dioxide Level 28 mmol/L (21-32) Anion Gap 10 (6-14) Blood Urea Nitrogen 54 mg/dL (7-20) Creatinine 5.1 mg/dL (0.6-1.0) Estimated GFR (Cockcroft-Gault) 8.8 Glucose Level 67 mg/dL (70-99) Calcium Level 8.5 mg/dL (8.5-10.1) Phosphorus Level 7.7 mg/dL (2.6-4.7) Magnesium Level 2.5 mg/dL (1.8-2.4) Albumin 2.5 g/dL (3.4-5.0) Test 10/16/16 08:24 10/16/16 10:17 10/16/16 11:06 Glucose (Fingerstick) 68 mg/dL (70-99) 83 mg/dL (70-99) 102 mg/dL (70-99) Review of Systems Review of Systems no fever, chills, sob or chest pain Comment Review of Relevant I have reviewed the following items nelda (where applicable) has been applied. Labs Laboratory Tests Test 10/14/16 13:14 10/14/16 17:41 10/14/16 20:43 10/15/16 07:43 Glucose (Fingerstick) 169 mg/dL (70-99) 187 mg/dL (70-99) 138 mg/dL (70-99) 136 mg/dL (70-99) Test 10/15/16 08:40 10/15/16 11:38 10/15/16 16:32 10/15/16 20:44 Prothrombin Time 14.5 SEC (11.7-14.0) Prothromb Time International Ratio 1.2 (0.8-1.1) Glucose (Fingerstick) 99 mg/dL (70-99) 101 mg/dL (70-99) 113 mg/dL (70-99) Test 10/16/16 03:50 10/16/16 07:37 10/16/16 08:24 10/16/16 10:17 White Blood Count 6.0 x10^3/uL (4.0-11.0) Red Blood Count 3.07 x10^6/uL (3.50-5.40) Hemoglobin 9.7 g/dL (12.0-15.5) Hematocrit 29.5 % (36.0-47.0) Mean Corpuscular Volume 96 fL (79-100) Mean Corpuscular Hemoglobin 31 pg (25-35) Mean Corpuscular Hemoglobin Concent 33 g/dL (31-37) Red Cell Distribution Width 17.8 % (11.5-14.5) Platelet Count 163 x10^3/uL (140-400) Neutrophils (%) (Auto) 69 % (31-73) Lymphocytes (%) (Auto) 15 % (24-48) Monocytes (%) (Auto) 11 % (0-9) Eosinophils (%) (Auto) 4 % (0-3) Basophils (%) (Auto) 1 % (0-3) Neutrophils # (Auto) 4.1 x10^3uL (1.8-7.7) Lymphocytes # (Auto) 0.9 x10^3/uL (1.0-4.8) Monocytes # (Auto) 0.6 x10^3/uL (0.0-1.1) Eosinophils # (Auto) 0.2 x10^3/uL (0.0-0.7) Basophils # (Auto) 0.1 x10^3/uL (0.0-0.2) Sodium Level 133 mmol/L (136-145) Potassium Level 4.5 mmol/L (3.5-5.1) Chloride Level 95 mmol/L (98-107) Carbon Dioxide Level 28 mmol/L (21-32) Anion Gap 10 (6-14) Blood Urea Nitrogen 54 mg/dL (7-20) Creatinine 5.1 mg/dL (0.6-1.0) Estimated GFR (Cockcroft-Gault) 8.8 Glucose Level 67 mg/dL (70-99) Calcium Level 8.5 mg/dL (8.5-10.1) Phosphorus Level 7.7 mg/dL (2.6-4.7) Magnesium Level 2.5 mg/dL (1.8-2.4) Albumin 2.5 g/dL (3.4-5.0) Glucose (Fingerstick) 47 mg/dL (70-99) 68 mg/dL (70-99) 83 mg/dL (70-99) Test 10/16/16 11:06 Glucose (Fingerstick) 102 mg/dL (70-99) Laboratory Tests Test 10/15/16 16:32 10/15/16 20:44 10/16/16 03:50 10/16/16 07:37 Glucose (Fingerstick) 101 mg/dL (70-99) 113 mg/dL (70-99) 47 mg/dL (70-99) White Blood Count 6.0 x10^3/uL (4.0-11.0) Red Blood Count 3.07 x10^6/uL (3.50-5.40) Hemoglobin 9.7 g/dL (12.0-15.5) Hematocrit 29.5 % (36.0-47.0) Mean Corpuscular Volume 96 fL (79-100) Mean Corpuscular Hemoglobin 31 pg (25-35) Mean Corpuscular Hemoglobin Concent 33 g/dL (31-37) Red Cell Distribution Width 17.8 % (11.5-14.5) Platelet Count 163 x10^3/uL (140-400) Neutrophils (%) (Auto) 69 % (31-73) Lymphocytes (%) (Auto) 15 % (24-48) Monocytes (%) (Auto) 11 % (0-9) Eosinophils (%) (Auto) 4 % (0-3) Basophils (%) (Auto) 1 % (0-3) Neutrophils # (Auto) 4.1 x10^3uL (1.8-7.7) Lymphocytes # (Auto) 0.9 x10^3/uL (1.0-4.8) Monocytes # (Auto) 0.6 x10^3/uL (0.0-1.1) Eosinophils # (Auto) 0.2 x10^3/uL (0.0-0.7) Basophils # (Auto) 0.1 x10^3/uL (0.0-0.2) Sodium Level 133 mmol/L (136-145) Potassium Level 4.5 mmol/L (3.5-5.1) Chloride Level 95 mmol/L (98-107) Carbon Dioxide Level 28 mmol/L (21-32) Anion Gap 10 (6-14) Blood Urea Nitrogen 54 mg/dL (7-20) Creatinine 5.1 mg/dL (0.6-1.0) Estimated GFR (Cockcroft-Gault) 8.8 Glucose Level 67 mg/dL (70-99) Calcium Level 8.5 mg/dL (8.5-10.1) Phosphorus Level 7.7 mg/dL (2.6-4.7) Magnesium Level 2.5 mg/dL (1.8-2.4) Albumin 2.5 g/dL (3.4-5.0) Test 10/16/16 08:24 10/16/16 10:17 10/16/16 11:06 Glucose (Fingerstick) 68 mg/dL (70-99) 83 mg/dL (70-99) 102 mg/dL (70-99) Microbiology 10/11/16 Blood Culture - Preliminary, Resulted NO GROWTH AFTER 4 DAYS 8/14/17 Anaerobic/Aerobic Culture - Final, Complete 10/13/16 Anaerobic Culture Result 1 (RICHARD) - Final, Complete 10/13/16 Aerobic Culture - Final, Complete 10/13/16 Aerobic Culture Result 1 (RICHARD) - Final, Complete 10/13/16 Antimicrobic Susceptibility - Final, Complete Medications Current Medications Hydromorphone HCl (Dilaudid) 1 mg 1X ONCE IV Last administered on 10/10/16 20 :30; Start 10/10/16 at 20:00; Stop 10/10/16 at 20:01; Status DC Ondansetron HCl (Zofran) 4 mg 1X ONCE IV Last administered on 10/10/16 20:30 ; Start 10/10/16 at 20:00; Stop 10/10/16 at 20:01; Status DC Vancomycin HCl (Vanco Per Pharmacy) 1 each PRN DAILY PRN MC SEE COMMENTS Last administered on 10/14/16 08:05; Start 10/11/16 at 00:00 Ceftriaxone Sodium 50 ml @ 100 mls/hr 1X ONCE IV Last administered on 02:38; Start 10/10/16 at 23:00; Stop 10/10/16 at 23:29; Status DC Calcium Gluconate 1000 mg/Sodium Chloride 110 ml @ 220 mls/hr 1X ONCE IV Last administered on 10/10/16 23:30; Start 10/10/16 at 23:00; Stop 10/10/16 at 23:29; Status DC Insulin Human Regular (NovoLIN R VIAL) 10 unit 1X ONCE IV Last administered on 10/11/16 00:41; Start 10/10/16 at 23:00; Stop 10/10/16 at 23:01; Status DC Dextrose (Dextrose 50%-Water Syringe) 25 gm 1X ONCE IV Last administered on 00:37; Start 10/10/16 at 23:00; Stop 10/10/16 at 23:01; Status DC Sodium Bicarbonate 50 meq 1X ONCE IV Last administered on 10/11/16 00:34; Start 10/10/16 at 23:00; Stop 10/10/16 at 23:01; Status DC Ondansetron HCl (Zofran) 4 mg PRN Q8HRS PRN IV NAUSEA/VOMITING; Start 10/10/16 at 22:45; Stop 10/11/16 at 09:49; Status DC Morphine Sulfate 4 mg PRN Q2HR PRN IV PAIN Last administered on 10/11/16 19:56 ; Start 10/10/16 at 22:45; Stop 10/11/16 at 22:44; Status DC Acetaminophen (Tylenol) 650 mg PRN Q4HRS PRN PO FEVER Last administered on 10/11 19:09; Start 10/10/16 at 22:45; Stop 10/11/16 at 22:44; Status DC Vancomycin HCl 2 gm/Sodium Chloride 500 ml @ 250 mls/hr 1X ONCE IV Last administered on 10/11/16 00:44; Start 10/10/16 at 23:00; Stop 10/11/16 at 00:59 ; Status DC Vancomycin HCl 1.5 gm/Sodium Chloride 500 ml @ 250 mls/hr Q48H IV ; Start 10/13 at 01:00; Status Cancel Vancomycin HCl 1 each 1X ONCE MC ; Start 10/15/16 at 00:30; Stop 10/15/16 at 00 :31; Status Cancel Ondansetron HCl (Zofran) 4 mg PRN Q6HRS PRN IV NAUSEA/VOMITING; Start 10/11/16 at 09:48; Stop 10/12/16 at 09:47; Status DC Carvedilol (Coreg) 6.25 mg BIDWMEALS PO Last administered on 10/16/16 08:58; Start 10/11/16 at 10:00 Fluoxetine HCl (PROzac) 20 mg DAILY PO Last administered on 10/16/16 08:56; Start 10/11/16 at 10:00 Acetaminophen/ Hydrocodone Bitart (Lortab 7.5/325) 1 tab PRN Q4HRS PRN PO PAIN Last administered on 10/16/16 06:13; Start 10/11/16 at 10:00 Sevelamer Carbonate (Renvela) 800 mg TIDWMEALS PO Last administered on 08:56; Start 10/11/16 at 12:00; Stop 10/16/16 at 10:13; Status DC Tamsulosin HCl (Flomax) 0.4 mg DAILY PO Last administered on 10/16/16 08:56; Start 10/11/16 at 10:00 Bumetanide (Bumex) 1 mg DAILY PO Last administered on 10/16/16 08:56; Start at 10:00 Gabapentin (Neurontin) 400 mg TID PO Last administered on 10/15/16 09:06; Start 10/11/16 at 10:15; Stop 10/15/16 at 11:24; Status DC Glimepiride (Amaryl) 4 mg DAILYWBKFT PO Last administered on 10/15/16 09:06; Start 10/12/16 at 08:00; Stop 10/16/16 at 08:06; Status DC Nystatin (Nystop) 1 gabrielle TID TP Last administered on 10/12/16 09:52; Start 02/15 at 14:00; Stop 10/12/16 at 13:27; Status DC Insulin Aspart (NovoLOG) 0-9 UNITS TIDWMEALS SQ Last administered on 10/14/16 17:57; Start 10/11/16 at 12:00 Dextrose (Dextrose 50%-Water Syringe) 12.5 gm PRN Q15MIN PRN IV SEE COMMENTS Last administered on 10/13/16 07:41; Start 10/11/16 at 10:00 Sodium Chloride 1,000 ml @ 1,000 mls/hr Q1H PRN IV hypotension; Start 10/11/16 at 11:56; Stop 10/11/16 at 17:55; Status DC Albumin Human 200 ml @ 200 mls/hr 1X PRN PRN IV Hypotension; Start 10/11/16 at 12:00; Stop 10/11/16 at 17:59; Status DC Acetaminophen (Tylenol) 500 mg 1X PRN PRN PO MILD PAIN / TEMP; Start 10/11/16 at 12:00; Stop 10/12/16 at 11:59; Status DC Diphenhydramine HCl (Benadryl) 25 mg 1X PRN PRN IV ITCHING; Start 10/11/16 at 12:00; Stop 10/12/16 at 11:59; Status DC Sodium Chloride (Normal Saline Flush) 10 ml 1X PRN PRN IV AP catheter pack; Start 10/11/16 at 12:00; Stop 10/12/16 at 11:59; Status DC Sodium Chloride (Normal Saline Flush) 10 ml 1X PRN PRN IV [employer] catheter pack; Start 10/11/16 at 12:00; Stop 10/12/16 at 11:59; Status DC Sodium Chloride 1,000 ml @ 400 mls/hr Q2H30M PRN IV PATENCY; Start 10/11/16 at 11:56; Stop 10/11/16 at 23:55; Status DC Info (PHARMACY MONITORING -- do not chart) 1 each PRN DAILY PRN MC SEE COMMENTS ; Start 10/11/16 at 12:00; Status Cancel Info (PHARMACY MONITORING -- do not chart) 1 each PRN DAILY PRN MC SEE COMMENTS ; Start 10/11/16 at 12:00 Darbepoetin Maunel (Aranesp) 60 mcg WEEKLYHS SQ Last administered on 10/11/16 21 :27; Start 10/11/16 at 21:00 Piperacillin Sod/ Tazobactam Sod (Zosyn Per Pharmacy) 1 each PRN DAILY PRN MC SEE COMMENTS; Start 10/11/16 at 13:00; Stop 10/15/16 at 13:02; Status DC Piperacillin Sod/ Tazobactam Sod 2.25 gm/Sodium Chloride 50 ml @ 100 mls/hr Q8HRS IV Last administered on 10/15/16 05:49; Start 10/11/16 at 14:00; Stop at 10:12; Status DC Famotidine (Pepcid) 20 mg QHS IVP Last administered on 10/11/16 21:27; Start 10/11/16 at 21:00; Stop 10/12/16 at 07:43; Status DC Heparin Sodium (Porcine) (Heparin Sq) 5,000 unit Q12HR SQ Last administered on 10/16/16 09:01; Start 10/11/16 at 21:00 Iohexol (Omnipaque 350 Mg/ml) 100 ml 1X ONCE IV ; Start 10/11/16 at 16:00; Stop 10/11/16 at 16:01; Status DC Vancomycin HCl 1 each 1X ONCE MC Last administered on 10/13/16 05:00; Start 10/13/16 at 05:00; Stop 10/13/16 at 05:01; Status DC Famotidine (Pepcid) 20 mg Q48H IVP Last administered on 10/14/16 20:35; Start 10/12/16 at 21:00 Nystatin (Nystop) 1 gabrielle TID TP Last administered on 10/15/16 20:51; Start at 13:27 Acetaminophen (Tylenol) 650 mg PRN Q6HRS PRN PO FEVER Last administered on 10/13 20:55; Start 10/12/16 at 19:45 Ondansetron HCl (Zofran) 4 mg PRN Q6HRS PRN IV NAUSEA/VOMITING; Start 10/12/16 at 20:30 Morphine Sulfate 4 mg PRN Q4HRS PRN IV PAIN Last administered on 10/15/16 09: 10; Start 10/12/16 at 20:30; Stop 10/15/16 at 11:24; Status DC Ondansetron HCl (Zofran) 4 mg STK-MED ONCE .ROUTE ; Start 10/13/16 at 07:31; Stop 10/13/16 at 07:32; Status DC Propofol 20 ml @ As Directed STK-MED ONCE IV ; Start 10/13/16 at 07:31; Stop at 07:32; Status DC Lidocaine HCl (Lidocaine Pf 2% Vial) 5 ml STK-MED ONCE .ROUTE ; Start 10/13/16 at 07:31; Stop 10/13/16 at 07:32; Status DC Midazolam HCl (Versed) 2 mg STK-MED ONCE .ROUTE ; Start 10/13/16 at 07:31; Stop 10/13/16 at 07:32; Status DC Fentanyl Citrate (Fentanyl 2ml Vial) 100 mcg STK-MED ONCE .ROUTE ; Start at 07:32; Stop 10/13/16 at 07:33; Status DC Ondansetron HCl (Zofran) 4 mg PRN Q6HRS PRN IV NAUSEA/VOMITING; Start 10/13/16 at 07:45; Stop 10/14/16 at 07:44; Status DC Fentanyl Citrate (Fentanyl 2ml Vial) 25 mcg PRN Q5MIN PRN IV MILD PAIN; Start 10/13/16 at 07:45; Stop 10/14/16 at 07:44; Status DC Fentanyl Citrate (Fentanyl 2ml Vial) 50 mcg PRN Q5MIN PRN IV MODERATE PAIN; Start 10/13/16 at 07:45; Stop 10/14/16 at 07:44; Status DC Morphine Sulfate 1 mg PRN Q10MIN PRN IV SEVERE PAIN; Start 10/13/16 at 07:45; Stop 10/14/16 at 07:44; Status DC Ringer's Solution 1,000 ml @ 30 mls/hr Q24H IV ; Start 10/13/16 at 07:43; Stop 10/13/16 at 19:42; Status DC Lidocaine HCl 2 ml PRN 1X PRN ID PRIOR TO IV START; Start 10/13/16 at 07:45; Stop 10/14/16 at 07:44; Status DC Hydromorphone HCl (Dilaudid) 0.5 mg PRN Q10MIN PRN IV SEV PAIN, Second choice; Start 10/13/16 at 07:45; Stop 10/14/16 at 07:44; Status DC Prochlorperazine Edisylate (Compazine) 5 mg PACU PRN PRN IV NAUSEA, MRX1; Start 10/13/16 at 07:45; Stop 10/14/16 at 07:44; Status DC Vancomycin HCl 500 mg/Sodium Chloride 100 ml @ 100 mls/hr 1X ONCE IV Last administered on 10/13/16t 09:17; Start 10/13/16 at 09:00; Stop 10/13/16 at 09:59 ; Status DC Vancomycin HCl 500 mg/Sodium Chloride 100 ml @ 100 mls/hr QTUTHSA IV Last administered on 10/14/16t 15:38; Start 10/14/16 at 16:00 Dexamethasone Sodium Phosphate (Decadron) 20 mg STK-MED ONCE .ROUTE ; Start at 08:06; Stop 10/13/16 at 08:07; Status DC Ephedrine Sulfate (Akovaz) 50 mg STK-MED ONCE .ROUTE ; Start 10/13/16 at 08:22; Stop 10/13/16 at 08:23; Status DC Sevoflurane (Ultane) 30 ml STK-MED ONCE IH ; Start 10/13/16 at 08:37; Stop 10/13 at 08:38; Status DC Sevoflurane (Ultane) 30 ml STK-MED ONCE IH ; Start 10/13/16 at 08:41; Stop 10/13 at 08:42; Status DC Sodium Chloride (Normal Saline Flush) 3 ml QSHIFT PRN IV AFTER MEDS AND BLOOD DRAWS; Start 10/13/16 at 09:30 Sodium Chloride 1,000 ml @ 1,000 mls/hr Q1H PRN IV hypotension; Start 10/14/16 at 08:01; Stop 10/14/16 at 14:00; Status DC Albumin Human 200 ml @ 200 mls/hr 1X PRN PRN IV Hypotension; Start 10/14/16 at 08:15; Stop 10/14/16 at 14:14; Status DC Acetaminophen (Tylenol) 500 mg 1X PRN PRN PO MILD PAIN / TEMP; Start 10/14/16 at 08:15; Stop 10/15/16 at 08:14; Status DC Diphenhydramine HCl (Benadryl) 25 mg 1X PRN PRN IV ITCHING; Start 10/14/16 at 08:15; Stop 10/15/16 at 08:14; Status DC Info (PHARMACY MONITORING -- do not chart) 1 each PRN DAILY PRN MC SEE COMMENTS ; Start 10/14/16 at 08:15; Status UNV Gabapentin (Neurontin) 100 mg TID PO ; Start 10/15/16 at 14:00; Stop 10/15/16 at 14:00; Status DC Morphine Sulfate 2 mg PRN Q4HRS PRN IV PAIN; Start 10/15/16 at 11:30 Magnesium Sulfate/ Dextrose 50 ml @ 25 mls/hr PRN DAILY PRN IV for Mag < 1.7 on am labs; Start 10/15/16 at 12:30 Gabapentin (Neurontin) 300 mg QTUTHSA PO ; Start 10/16/16 at 16:00 Lidocaine/ Epinephrine (Xylocaine 2%-Epi 1:100,000) 20 ml STK-MED ONCE .ROUTE ; Start 10/15/16 at 13:25; Stop 10/15/16 at 13:26; Status DC Heparin Sodium (Porcine) (Heparin Sodium) 10,000 unit STK-MED ONCE .ROUTE ; Start 10/15/16 at 13:25; Stop 10/15/16 at 13:26; Status DC Heparin Sodium/ Sodium Chloride 500 ml @ As Directed STK-MED ONCE .ROUTE ; Start 10/15/16 at 13:25; Stop 10/15/16 at 13:26; Status DC Cefazolin Sodium 50 ml @ As Directed STK-MED ONCE IV ; Start 10/15/16 at 14:04; Stop 10/15/16 at 14:05; Status DC Midazolam HCl (Versed) 5 mg STK-MED ONCE .ROUTE ; Start 10/15/16 at 14:05; Stop 10/15/16 at 14:06; Status DC Fentanyl Citrate (Fentanyl 5ml Vial) 250 mcg STK-MED ONCE .ROUTE ; Start at 14:05; Stop 10/15/16 at 14:06; Status DC Heparin Sodium/ Sodium Chloride 1,000 unit 1X ONCE IART Last administered on 14:30; Start 10/15/16 at 14:30; Stop 10/15/16 at 14:31; Status DC Heparin Sodium (Porcine) (Heparin Sodium) 4,000 unit 1X ONCE IV Last administered on 10/15/16 14:30; Start 10/15/16 at 14:30; Stop 10/15/16 at 14:31 ; Status DC Lidocaine/ Epinephrine (Xylocaine 2%-Epi 1:100,000) 20 ml 1X ONCE IJ Last administered on 10/15/16 14:45; Start 10/15/16 at 14:30; Stop 10/15/16 at 14:31 ; Status DC Midazolam HCl (Versed) 5 mg 1X ONCE IV Last administered on 10/15/16 14:46; Start 10/15/16 at 14:30; Stop 10/15/16 at 14:31; Status DC Fentanyl Citrate (Fentanyl 2ml Vial) 250 mcg 1X ONCE IM ; Start 10/15/16 at 14: 30; Stop 10/15/16 at 14:31; Status DC Fentanyl Citrate (Fentanyl 5ml Vial) 50 mcg 1X ONCE IV Last administered on 14:51; Start 10/15/16 at 15:00; Stop 10/15/16 at 15:01; Status DC Cefazolin Sodium 50 ml @ 100 mls/hr 1X ONCE IV Last administered on 14:50; Start 10/15/16 at 15:00; Stop 10/15/16 at 15:29; Status DC Glimepiride (Amaryl) 2 mg DAILYWBKFT PO Last administered on 10/16/16t 08:56; Start 10/16/16 at 08:30 Sevelamer Carbonate (Renvela) 2,400 mg TIDWMEALS PO ; Start 10/16/16 at 12:00 Active Scripts Active Reported Tamsulosin Hcl 0.4 Mg Cap.er.24h 0.4 Mg PO DAILY Fluoxetine Hcl 20 Mg Capsule 20 Mg PO DAILY Aspirin 325 Mg Tablet 325 Mg PO DAILY Hydrocodone-Apap 7.5-325 (Hydrocodone Bit/Acetaminophen) 1 Each Tablet 1 Tab PO PRN Q4HRS PRN Renvela (Sevelamer Carbonate) 800 Mg Tablet 800 Mg PO TIDWMEALS Gabapentin 400 Mg Capsule 400 Mg PO TID Carvedilol 6.25 Mg Tablet 6.25 Mg PO DAILY Nystatin 1 Each Powder.ea. 1 Each PO TID Bumetanide 2 Mg Tablet 1 Tab PO DAILY Glimepiride 4 Mg Tablet 4 Mg PO DAILY Acetaminophen 325 Mg Capsule 650 Mg PO Q6HRS PRN Vitals/I & O Vital Sign - Last 24 Hours 10/15/16 10/15/16 10/15/16 10/15/16 14:30 14:51 15:00 15:15 Temp 97.8 97.6 97.8 97.6 Pulse 88 88 Resp 14 14 20 20 B/P (MAP) 124/66 (85) 120/65 (83) Pulse Ox 95 99 100 O2 Delivery Nasal Cannula Nasal Cannula Nasal Cannula O2 Flow Rate 3.0 3.0 3.0 10/15/16 10/15/16 10/15/16 10/15/16 15:45 16:00 16:00 16:30 Temp 97.6 97.6 97.7 97.6 97.6 97.7 Pulse 86 88 89 Resp 20 20 20 B/P (MAP) 110/62 (78) 119/68 (85) 112/67 (82) Pulse Ox 100 100 99 99 O2 Delivery Nasal Cannula Nasal Cannula Nasal Cannula Room Air O2 Flow Rate 3.0 3.0 3.0 10/15/16 10/15/16 10/15/16 10/15/16 17:00 17:13 19:47 20:00 Temp 97.7 98.4 97.7 98.4 Pulse 88 88 84 Resp 20 18 B/P (MAP) 122/61 (81) 122/61 106/49 (68) Pulse Ox 100 91 O2 Delivery Nasal Cannula Nasal Cannula Nasal Cannula O2 Flow Rate 3.0 3.0 3.0 10/15/16 10/16/16 10/16/16 10/16/16 20:55 00:26 00:56 03:00 Temp 97.7 98.2 97.7 98.2 Pulse 88 91 Resp 18 18 18 16 B/P (MAP) 128/63 (84) 117/66 (83) Pulse Ox 91 99 99 95 O2 Delivery Nasal Cannula Nasal Cannula Nasal Cannula Nasal Cannula O2 Flow Rate 3.0 3.0 3.0 3.0 10/16/16 10/16/16 10/16/16 10/16/16 06:13 07:00 07:16 08:00 Temp 97.5 97.5 Pulse 92 Resp 20 20 18 B/P (MAP) 142/69 (93) Pulse Ox 99 95 99 O2 Delivery Nasal Cannula Nasal Cannula Nasal Cannula Nasal Cannula O2 Flow Rate 3.0 3.0 3.0 3.0 10/16/16 10/16/16 08:58 12:00 Temp 98.6 98.6 Pulse 92 87 Resp 20 B/P (MAP) 142/69 119/54 (75) Pulse Ox 100 O2 Delivery Room Air Intake and Output 10/15/16 10/15/16 10/16/16 15:00 23:00 07:00 Intake Total 350 ml 0 ml Output Total 250 ml Balance 100 ml 0 ml LYNETTE MOSHER MD Oct 16, 2016 12:51
[2016-10-16] MEDS ORDERED: IV NORMAL SALINE 1000ML BAG 1,000 ML IV PRN ×2 (13:35)
[2016-10-16] MEDS ORDERED: DIALYSIS PATIENT. MC PRN (13:45)
[2016-10-16] MEDS ORDERED: diphenhydrAMINE 50 MG/ML VIAL IV PRN ×2 (13:45)
[2016-10-16] MEDS ORDERED: HEPARIN for IV BOLUS 10,000 UNIT/10 ML VIAL. IV STA (15:06)
[2016-10-16] MEDS: VANCOMYCIN PER PHARMACY MC PRN (15:21)
[2016-10-16] MEDS ORDERED: GABAPENTIN 300 MG CAPSULE. PO SCH (16:00)
[2016-10-16] MEDS: VANCOMYCIN 500 MG in IV NORMAL SALINE 100ML 100 ML IV SCH (19:56)
[2016-10-17] VITALS (7 sets, daily range): BP systolic 114–141; BP diastolic 48–54
[2016-10-17] MEDS: HYDROcodone/APAP 7.5/325MG 1 TAB TABLET PO PRN ×4 (04:22→16:43)
[2016-10-17 06:15] LABS: BASO % 1 % (0-3); EOS % 4 % (0-3); HEMATOCRIT 28.4 % (36.0-47.0); HEMOGLOBIN 9.6 g/dL (12.0-15.5); LYMPH % 16 % (24-48); MEAN CORPUSCULAR HEMOGLOBIN 32 pg (25-35); MEAN CORPUSCULAR HGB CONC 34 g/dL (31-37); MEAN CORPUSCULAR VOLUME 94 fL (79-100); MONO % 8 % (0-9); NEUT % 73 % (31-73); PLATELET COUNT 182 x10^3/uL (140-400); RED BLOOD COUNT 3.01 x10^6/uL (3.50-5.40); RED CELL DISTRIBUTION WIDTH 17.9 % (11.5-14.5); WHITE BLOOD COUNT 6.2 x10^3/uL (4.0-11.0)
[2016-10-17 06:31] LABS: ALBUMIN 2.4 g/dL (3.4-5.0); CALCIUM 8.6 mg/dL (8.5-10.1); CREATININE 3.1 mg/dL (0.6-1.0); GFR 15.6; PHOSPHORUS 4.7 mg/dL (2.6-4.7); POTASSIUM 3.8 mmol/L (3.5-5.1)
[2016-10-17] MEDS: INSULIN ASPART 300 UNITS/3 ML INSULN.PEN SQ SCH ×3 (07:48→16:47)
[2016-10-17] MEDS: BUMETANIDE 1 MG TABLET. PO SCH (08:22)
[2016-10-17] MEDS: TAMSULOSIN 0.4 MG CAP.ER.24H. PO SCH (08:22)
[2016-10-17] MEDS: GLIMEPIRIDE 2 MG TABLET. PO SCH (08:22)
[2016-10-17] MEDS: CARVEDILOL 6.25 MG TABLET. PO SCH ×2 (08:23→18:31)
[2016-10-17] MEDS: FLUoxetine HCL 20 MG CAPSULE PO SCH (08:23)
[2016-10-17] MEDS: SEVELAMER CARBONATE 800 MG TABLET. PO SCH ×3 (08:23→16:42)
[2016-10-17] MEDS: NYSTATIN TOPICAL POWDER 15GM BOTTLE. TP SCH ×2 (09:00→13:09)
--- NOTE | 2016-10-17 09:04 | PDOC ---
SURGICAL PROGRESS NOTE Subjective tolerating diet pain to groin site Vital Signs Vital Signs Date Time Temp Pulse Resp B/P (MAP) Pulse Ox O2 Delivery O2 Flow Rate FiO2 10/17/16 08:23 97 116/48 10/17/16 08:00 Nasal Cannula 10/17/16 07:22 97.5 18 84 97.5 10/17/16 05:32 3.0 I&O Intake and Output 10/17/16 07:00 Intake Total 710 ml Output Total 250 ml Balance 460 ml Intake Oral 710 ml Output Urine Total 250 ml # Voids 1 # Bowel Movements 3 General: Alert, Oriented X3, Cooperative, No acute distress Skin: Other (right groin with drain, continued drainage ) Labs Laboratory Tests Test 10/15/16 11:38 10/15/16 16:32 10/15/16 20:44 10/16/16 03:50 Glucose (Fingerstick) 99 mg/dL (70-99) 101 mg/dL (70-99) 113 mg/dL (70-99) White Blood Count 6.0 x10^3/uL (4.0-11.0) Red Blood Count 3.07 x10^6/uL (3.50-5.40) Hemoglobin 9.7 g/dL (12.0-15.5) Hematocrit 29.5 % (36.0-47.0) Mean Corpuscular Volume 96 fL (79-100) Mean Corpuscular Hemoglobin 31 pg (25-35) Mean Corpuscular Hemoglobin Concent 33 g/dL (31-37) Red Cell Distribution Width 17.8 % (11.5-14.5) Platelet Count 163 x10^3/uL (140-400) Neutrophils (%) (Auto) 69 % (31-73) Lymphocytes (%) (Auto) 15 % (24-48) Monocytes (%) (Auto) 11 % (0-9) Eosinophils (%) (Auto) 4 % (0-3) Basophils (%) (Auto) 1 % (0-3) Neutrophils # (Auto) 4.1 x10^3uL (1.8-7.7) Lymphocytes # (Auto) 0.9 x10^3/uL (1.0-4.8) Monocytes # (Auto) 0.6 x10^3/uL (0.0-1.1) Eosinophils # (Auto) 0.2 x10^3/uL (0.0-0.7) Basophils # (Auto) 0.1 x10^3/uL (0.0-0.2) Sodium Level 133 mmol/L (136-145) Potassium Level 4.5 mmol/L (3.5-5.1) Chloride Level 95 mmol/L (98-107) Carbon Dioxide Level 28 mmol/L (21-32) Anion Gap 10 (6-14) Blood Urea Nitrogen 54 mg/dL (7-20) Creatinine 5.1 mg/dL (0.6-1.0) Estimated GFR (Cockcroft-Gault) 8.8 Glucose Level 67 mg/dL (70-99) Calcium Level 8.5 mg/dL (8.5-10.1) Phosphorus Level 7.7 mg/dL (2.6-4.7) Magnesium Level 2.5 mg/dL (1.8-2.4) Albumin 2.5 g/dL (3.4-5.0) Test 10/16/16 07:37 10/16/16 08:24 10/16/16 10:17 10/16/16 11:06 Glucose (Fingerstick) 47 mg/dL (70-99) 68 mg/dL (70-99) 83 mg/dL (70-99) 102 mg/dL (70-99) Test 10/16/16 18:25 10/16/16 21:08 10/17/16 05:45 10/17/16 07:02 Glucose (Fingerstick) 57 mg/dL (70-99) 131 mg/dL (70-99) 111 mg/dL (70-99) White Blood Count 6.2 x10^3/uL (4.0-11.0) Red Blood Count 3.01 x10^6/uL (3.50-5.40) Hemoglobin 9.6 g/dL (12.0-15.5) Hematocrit 28.4 % (36.0-47.0) Mean Corpuscular Volume 94 fL (79-100) Mean Corpuscular Hemoglobin 32 pg (25-35) Mean Corpuscular Hemoglobin Concent 34 g/dL (31-37) Red Cell Distribution Width 17.9 % (11.5-14.5) Platelet Count 182 x10^3/uL (140-400) Neutrophils (%) (Auto) 73 % (31-73) Lymphocytes (%) (Auto) 16 % (24-48) Monocytes (%) (Auto) 8 % (0-9) Eosinophils (%) (Auto) 4 % (0-3) Basophils (%) (Auto) 1 % (0-3) Neutrophils # (Auto) 4.5 x10^3uL (1.8-7.7) Lymphocytes # (Auto) 1.0 x10^3/uL (1.0-4.8) Monocytes # (Auto) 0.5 x10^3/uL (0.0-1.1) Eosinophils # (Auto) 0.2 x10^3/uL (0.0-0.7) Basophils # (Auto) 0.0 x10^3/uL (0.0-0.2) Sodium Level 136 mmol/L (136-145) Potassium Level 3.8 mmol/L (3.5-5.1) Chloride Level 98 mmol/L (98-107) Carbon Dioxide Level 30 mmol/L (21-32) Anion Gap 8 (6-14) Blood Urea Nitrogen 29 mg/dL (7-20) Creatinine 3.1 mg/dL (0.6-1.0) Estimated GFR (Cockcroft-Gault) 15.6 Glucose Level 101 mg/dL (70-99) Calcium Level 8.6 mg/dL (8.5-10.1) Phosphorus Level 4.7 mg/dL (2.6-4.7) Magnesium Level 2.3 mg/dL (1.8-2.4) Albumin 2.4 g/dL (3.4-5.0) Laboratory Tests Test 10/16/16 10:17 10/16/16 11:06 10/16/16 18:25 10/16/16 21:08 Glucose (Fingerstick) 83 mg/dL (70-99) 102 mg/dL (70-99) 57 mg/dL (70-99) 131 mg/dL (70-99) Test 10/17/16 05:45 10/17/16 07:02 White Blood Count 6.2 x10^3/uL (4.0-11.0) Red Blood Count 3.01 x10^6/uL (3.50-5.40) Hemoglobin 9.6 g/dL (12.0-15.5) Hematocrit 28.4 % (36.0-47.0) Mean Corpuscular Volume 94 fL (79-100) Mean Corpuscular Hemoglobin 32 pg (25-35) Mean Corpuscular Hemoglobin Concent 34 g/dL (31-37) Red Cell Distribution Width 17.9 % (11.5-14.5) Platelet Count 182 x10^3/uL (140-400) Neutrophils (%) (Auto) 73 % (31-73) Lymphocytes (%) (Auto) 16 % (24-48) Monocytes (%) (Auto) 8 % (0-9) Eosinophils (%) (Auto) 4 % (0-3) Basophils (%) (Auto) 1 % (0-3) Neutrophils # (Auto) 4.5 x10^3uL (1.8-7.7) Lymphocytes # (Auto) 1.0 x10^3/uL (1.0-4.8) Monocytes # (Auto) 0.5 x10^3/uL (0.0-1.1) Eosinophils # (Auto) 0.2 x10^3/uL (0.0-0.7) Basophils # (Auto) 0.0 x10^3/uL (0.0-0.2) Sodium Level 136 mmol/L (136-145) Potassium Level 3.8 mmol/L (3.5-5.1) Chloride Level 98 mmol/L (98-107) Carbon Dioxide Level 30 mmol/L (21-32) Anion Gap 8 (6-14) Blood Urea Nitrogen 29 mg/dL (7-20) Creatinine 3.1 mg/dL (0.6-1.0) Estimated GFR (Cockcroft-Gault) 15.6 Glucose Level 101 mg/dL (70-99) Calcium Level 8.6 mg/dL (8.5-10.1) Phosphorus Level 4.7 mg/dL (2.6-4.7) Magnesium Level 2.3 mg/dL (1.8-2.4) Albumin 2.4 g/dL (3.4-5.0) Glucose (Fingerstick) 111 mg/dL (70-99) Assessment/Plan s/p I&D--still large amount of drainage leave nanci in place at DC FU next week in clinic with Dr Alexander Problems: ANDREA MCCLELLAN APRN Oct 17, 2016 09:04
[2016-10-17] MEDS ORDERED: GLIM2TAB PO (09:06)
[2016-10-17] MEDS ORDERED: SEVE800T9 PO (09:06)
[2016-10-17] MEDS ORDERED: GABA300C8 PO (09:08)
[2016-10-17] MEDS: HEPARIN PF for SUB-Q USE 5,000 UNIT/0.5 ML VIAL. SQ SCH (09:11)
--- NOTE | 2016-10-17 11:25 | PDOC3 ---
Discharge Summary [facility] Date of Admission: Oct 10, 2016 Discharge Date: Oct 17, 2016 Admitting Diagnosis 1. R groin abscess s/p I and D with indwelling CELIA drain, MRSA in wound cx 2. sepsis 3. acute metabolic encephalopathy, multifactorial, sepsis, meds 4. ESRD on HD 5. DM2, with hypoglycemia 6. morbid obesity, BMI 45 w/ mod malnutrition 7. weakness and debility 8. anemia of CKD Problems: CONSULTS sx renal id Brief Hospital Course Ms. 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 Still has large amount of drainage coming out. Right chest HD cath removed, new left chest HD cath. wound cx + MRSA. dc to rehab, cont nanci, cont HD, cont vanco after HD till 10/22 as per ID. DC TIME 35min. General: Alert, Oriented X3, Cooperative, No acute distress Heart: Regular rate, Normal S1, Normal S2, Other (tachycardic,) Lungs: Clear, Other (No RRW) Abdomen: Normal bowel sounds, Soft, No tenderness Extremities: No clubbing, Other (right medial groin hematoma is stable, cellulitis is improved, but the patient is still markedly tender to palpation over this area, there is no skin breakdown, there is no ulceration, there is no gangrenous changes, there is no crepitance overlying the hematoma, she has a palpable thrill in her right upper extremity AV fistula which is still maturing) Skin: Other (right groin wound, clean, drain in place, packing in place, some induration still ) Problems: Disposition rehab CONDITION AT DISCHARGE: Improved Diet renal Scheduled Aspirin (Aspirin), 325 MG PO DAILY, (Reported) Bumetanide (Bumetanide), 1 TAB PO DAILY, (Reported) Carvedilol (Carvedilol), 6.25 MG PO DAILY, (Reported) Fluoxetine Hcl (Fluoxetine Hcl), 20 MG PO DAILY, (Reported) Gabapentin (Gabapentin), 300 MG PO QTUTHSA Glimepiride (Amaryl), 2 MG PO DAILYWBKFT Nystatin (Nystatin), 1 EACH PO TID, (Reported) Sevelamer Carbonate (Renvela), 800 MG PO TIDWMEALS, (Reported) Sevelamer Carbonate (Renvela), 2,400 MG PO TIDWMEALS Tamsulosin Hcl (Tamsulosin Hcl), 0.4 MG PO DAILY, (Reported) Scheduled PRN Acetaminophen (Acetaminophen), 650 MG PO Q6HRS PRN for PAIN, (Reported) Hydrocodone Bit/Acetaminophen (Hydrocodone-Apap 7.5-325 ), 1 TAB PO PRN Q4HRS PRN for PAIN, (Reported) Discontinued Medications Aspirin (Aspirin), 81 MG PO DAILY, (Reported) Carvedilol (Coreg), 6.25 MG PO BIDWMEALS, (Reported) Gabapentin (Gabapentin), 400 MG PO TID, (Reported) Glimepiride (Glimepiride), 4 MG PO DAILY, (Reported) Follow Up sx next week LYNETTE MOSHER MD Oct 17, 2016 11:25
--- NOTE | 2016-10-17 12:42 | PDOC ---
SUBJECTIVE ROS ESRD Doign and feeling well today CVS: no Orthopnea, no CP RESP: no SOB, no RODRIGUEZ GI: no Nausea, no Vomiting : no Dysuria, no Urgency OBJECTIVE Vital Signs Vital Signs Date Time Temp Pulse Resp B/P (MAP) Pulse Ox O2 Delivery O2 Flow Rate FiO2 10/17/16 10:47 98.4 95 20 114/53 (73) Nasal Cannula 3.0 98.4 10/17/16 07:22 84 I & 0 Intake and Output 10/17/16 07:00 Intake Total 710 ml Output Total 250 ml Balance 460 ml Intake Oral 710 ml Output Urine Total 250 ml # Voids 1 # Bowel Movements 3 PHYSICAL EXAM Physical Exam GEN: Awake, Oriented x 3, In no distress EYES: Vision Unchanged, Conjunctiva Normal EN: No EN Drainage, Mucous Membranes moist NECK: no JVD, min JVP, Supple, no Thyromegaly CVS: S1S2, + Murmur, No Gallop, No Rub,no Edema RESP: no Rales, no Rhonchi,no Acc. Muscle Use GI: BS + ve, NO Bruit, Non Tender, Non Distended : no CVA tenderness, no Suprapubic Tenderness DIAGNOSIS/ASSESSMENT Assessment & Plan ESRD: Current fluid and E-lyte status does not necessitate emergent need for dialysis. Will re-evaluate for dialysis in the am and continue on TTSat schedule. ANEMIA; Aranesp as ordered, Transfuse with next HD as needed HTN: Current BP meds as reviewed. See orders for changes. BONE & MINERAL: Follow phos on ^ed binder regimen; reval as OP Groin Abscess - GPC ntoed - abx per ID Discussed Plan of Care with pt at bedside COMMENT/RELEVANT DATA Meds Current Medications Medications (Trade) Dose Ordered Sig/Susan Start Time Stop Time Status Last Admin Dose Admin Acetaminophen (Tylenol) 500 mg 1X PRN PRN 10/14/16 08:15 10/15/16 08:14 DC Acetaminophen/ Hydrocodone Bitart (Lortab 7.5/325) 1 tab PRN Q4HRS PRN 10/11/16 10:00 10/17/16 08:50 1 TAB Albumin Human 200 ml @ 200 mls/hr 1X PRN PRN 10/14/16 08:15 10/14/16 14:14 DC Bumetanide (Bumex) 1 mg DAILY 10/11/16 10:00 10/17/16 08:22 1 MG Calcium Gluconate 1000 mg/Sodium Chloride 110 ml @ 220 mls/hr 1X ONCE 10/10/16 23:00 10/10/16 23:29 DC 10/10/16 23:30 220 MLS/HR Carvedilol (Coreg) 6.25 mg BIDWMEALS 10/11/16 10:00 10/17/16 08:23 6.25 MG Cefazolin Sodium 50 ml @ 100 mls/hr 1X ONCE 10/15/16 15:00 10/15/16 15:29 DC 10/15/16 14:50 100 MLS/HR Ceftriaxone Sodium 50 ml @ 100 mls/hr 1X ONCE 10/10/16 23:00 10/10/16 23:29 DC 10/11/16 02:38 100 MLS/HR Darbepoetin Manuel (Aranesp) 60 mcg WEEKLYHS 10/11/16 21:00 10/11/16 21:27 60 MCG Dexamethasone Sodium Phosphate (Decadron) 20 mg STK-MED ONCE 10/13/16 08:06 10/13/16 08:07 DC Dextrose (Dextrose 50%-Water Syringe) 12.5 gm PRN Q15MIN PRN 10/11/16 10:00 10/13/16 07:41 12.5 GM Diphenhydramine HCl (Benadryl) 25 mg 1X PRN PRN 10/16/16 13:45 10/17/16 13:44 Ephedrine Sulfate (Akovaz) 50 mg STK-MED ONCE 10/13/16 08:22 10/13/16 08:23 DC Famotidine (Pepcid) 20 mg Q48H 10/12/16 21:00 10/16/16 12:52 DC 10/14/16 20:35 20 MG Fentanyl Citrate (Fentanyl 2ml Vial) 250 mcg 1X ONCE 10/15/16 14:30 10/15/16 14:31 DC Fentanyl Citrate (Fentanyl 5ml Vial) 50 mcg 1X ONCE 10/15/16 15:00 10/15/16 15:01 DC 10/15/16 14:51 50 MCG Fluoxetine HCl (PROzac) 20 mg DAILY 10/11/16 10:00 10/17/16 08:23 20 MG Gabapentin (Neurontin) 300 mg QTUTHSA 10/16/16 16:00 10/16/16 18:35 300 MG Glimepiride (Amaryl) 2 mg DAILYWBKFT 10/16/16 08:30 10/17/16 08:22 2 MG Heparin Sodium (Porcine) (Heparin Sodium) 10,000 unit STK-MED ONCE 10/16/16 15:15 10/16/16 15:37 DC Heparin Sodium (Porcine) (Heparin Sq) 5,000 unit Q12HR 10/11/16 21:00 10/17/16 09:11 5,000 UNIT Heparin Sodium/ Sodium Chloride 1,000 unit 1X ONCE 10/15/16 14:30 10/15/16 14:31 DC 10/15/16 14:30 1,000 UNIT Hydromorphone HCl (Dilaudid) 0.5 mg PRN Q10MIN PRN 10/13/16 07:45 10/14/16 07:44 DC Info (PHARMACY MONITORING -- do not chart) 1 each PRN DAILY PRN 10/16/16 13:45 UNV Insulin Aspart (NovoLOG) 0-9 UNITS TIDWMEALS 10/11/16 12:00 10/14/16 17:57 4 UNITS Insulin Human Regular (NovoLIN R VIAL) 10 unit 1X ONCE 10/10/16 23:00 10/10/16 23:01 DC 10/11/16 00:41 10 UNIT Iohexol (Omnipaque 350 Mg/ml) 100 ml 1X ONCE 10/11/16 16:00 10/11/16 16:01 DC Lidocaine HCl 2 ml PRN 1X PRN 10/13/16 07:45 10/14/16 07:44 DC Lidocaine HCl (Lidocaine Pf 2% Vial) 5 ml STK-MED ONCE 10/13/16 07:31 10/13/16 07:32 DC Lidocaine/ Epinephrine (Xylocaine 2%-Epi 1:100,000) 20 ml 1X ONCE 10/15/16 14:30 10/15/16 14:31 DC 10/15/16 14:45 8 ML Magnesium Sulfate/ Dextrose 50 ml @ 25 mls/hr PRN DAILY PRN 10/15/16 12:30 Midazolam HCl (Versed) 5 mg 1X ONCE 10/15/16 14:30 10/15/16 14:31 DC 10/15/16 14:46 1 MG Morphine Sulfate 2 mg PRN Q4HRS PRN 10/15/16 11:30 Nystatin (Nystop) 1 gabrielle TID 10/12/16 13:27 10/16/16 19:58 1 GABRIELLE Ondansetron HCl (Zofran) 4 mg PRN Q6HRS PRN 10/13/16 07:45 10/14/16 07:44 DC Piperacillin Sod/ Tazobactam Sod (Zosyn Per Pharmacy) 1 each PRN DAILY PRN 10/11/16 13:00 10/15/16 13:02 DC Piperacillin Sod/ Tazobactam Sod 2.25 gm/Sodium Chloride 50 ml @ 100 mls/hr Q8HRS 10/11/16 14:00 10/15/16 10:12 DC 10/15/16 05:49 100 MLS/HR Prochlorperazine Edisylate (Compazine) 5 mg PACU PRN PRN 10/13/16 07:45 10/14/16 07:44 DC Propofol 20 ml @ As Directed STK-MED ONCE 10/13/16 07:31 10/13/16 07:32 DC Ringer's Solution 1,000 ml @ 30 mls/hr Q24H 10/13/16 07:43 10/13/16 19:42 DC Sevelamer Carbonate (Renvela) 2,400 mg TIDWMEALS 10/16/16 12:00 10/17/16 12:28 2,400 MG Sevoflurane (Ultane) 30 ml STK-MED ONCE 10/13/16 08:41 10/13/16 08:42 DC Sodium Bicarbonate 50 meq 1X ONCE 10/10/16 23:00 10/10/16 23:01 DC 10/11/16 00:34 50 MEQ Sodium Chloride 1,000 ml @ 400 mls/hr Q2H30M PRN 10/16/16 13:35 10/17/16 01:34 DC Sodium Chloride (Normal Saline Flush) 3 ml QSHIFT PRN 10/13/16 09:30 Tamsulosin HCl (Flomax) 0.4 mg DAILY 10/11/16 10:00 10/17/16 08:22 0.4 MG Vancomycin HCl (Vanco Per Pharmacy) 1 each PRN DAILY PRN 10/11/16 00:00 10/16/16 15:21 1 EACH Vancomycin HCl 1.5 gm/Sodium Chloride 500 ml @ 250 mls/hr Q48H 10/13/16 01:00 Cancel Vancomycin HCl 500 mg/Sodium Chloride 100 ml @ 100 mls/hr QTUTHSA 10/14/16 16:00 10/16/16 19:56 100 MLS/HR Vancomycin HCl 2 gm/Sodium Chloride 500 ml @ 250 mls/hr 1X ONCE 10/10/16 23:00 10/11/16 00:59 DC 10/11/16 00:44 250 MLS/HR Lab Laboratory Tests Test 10/16/16 18:25 10/16/16 21:08 10/17/16 05:45 10/17/16 07:02 Glucose (Fingerstick) 57 mg/dL (70-99) 131 mg/dL (70-99) 111 mg/dL (70-99) White Blood Count 6.2 x10^3/uL (4.0-11.0) Red Blood Count 3.01 x10^6/uL (3.50-5.40) Hemoglobin 9.6 g/dL (12.0-15.5) Hematocrit 28.4 % (36.0-47.0) Mean Corpuscular Volume 94 fL (79-100) Mean Corpuscular Hemoglobin 32 pg (25-35) Mean Corpuscular Hemoglobin Concent 34 g/dL (31-37) Red Cell Distribution Width 17.9 % (11.5-14.5) Platelet Count 182 x10^3/uL (140-400) Neutrophils (%) (Auto) 73 % (31-73) Lymphocytes (%) (Auto) 16 % (24-48) Monocytes (%) (Auto) 8 % (0-9) Eosinophils (%) (Auto) 4 % (0-3) Basophils (%) (Auto) 1 % (0-3) Neutrophils # (Auto) 4.5 x10^3uL (1.8-7.7) Lymphocytes # (Auto) 1.0 x10^3/uL (1.0-4.8) Monocytes # (Auto) 0.5 x10^3/uL (0.0-1.1) Eosinophils # (Auto) 0.2 x10^3/uL (0.0-0.7) Basophils # (Auto) 0.0 x10^3/uL (0.0-0.2) Sodium Level 136 mmol/L (136-145) Potassium Level 3.8 mmol/L (3.5-5.1) Chloride Level 98 mmol/L (98-107) Carbon Dioxide Level 30 mmol/L (21-32) Anion Gap 8 (6-14) Blood Urea Nitrogen 29 mg/dL (7-20) Creatinine 3.1 mg/dL (0.6-1.0) Estimated GFR (Cockcroft-Gault) 15.6 Glucose Level 101 mg/dL (70-99) Calcium Level 8.6 mg/dL (8.5-10.1) Phosphorus Level 4.7 mg/dL (2.6-4.7) Magnesium Level 2.3 mg/dL (1.8-2.4) Albumin 2.4 g/dL (3.4-5.0) Test 10/17/16 10:16 Glucose (Fingerstick) 99 mg/dL (70-99) GANGA TANG MD Oct 17, 2016 12:42
== END 2016-10-17 16:35 | DRG 853 ==
LOC: ER 18:58 → 5 SOUTH 22:40 → 1 WEST ICU 10-11 16:30 → 5 SOUTH 10-14 21:50
PROVIDERS: ADMIT Internal Medicine; ATTEND Internal Medicine
PROC: 02H633Z Insertion of Infusion Device into Right Atrium, Percutaneous Approach (ICD-10-PCS; 2016-10-11)
PROC: B244ZZZ Ultrasonography of Right Heart (ICD-10-PCS; 2016-10-11)
PROC: 5A1D60Z (ICD-10-PCS; 2016-10-11)
PROC: 0J9C00Z Drainage of Pelvic Region Subcutaneous Tissue and Fascia with Drainage Device, Open Approach (ICD-10-PCS; 2016-10-13)
PROC: 0J9C0ZZ Drainage of Pelvic Region Subcutaneous Tissue and Fascia, Open Approach (ICD-10-PCS; 2016-10-13)
PROC: 0JH63XZ Insertion of Tunneled Vascular Access Device into Chest Subcutaneous Tissue and Fascia, Percutaneous Approach (ICD-10-PCS; principal; 2016-10-15)
DX: A41.9 Sepsis, unspecified organism (principal); N18.6 End stage renal disease; G93.41 Metabolic encephalopathy; I13.2 Hypertensive heart and chronic kidney disease with heart failure and with stage 5 chronic kidney disease, or end stage renal disease; E44.0 Moderate protein-calorie malnutrition; D63.1 Anemia in chronic kidney disease; S30.1XXA Contusion of abdominal wall, initial encounter; Z68.41 Body mass index [BMI] 40.0-44.9, adult; I50.22 Chronic systolic (congestive) heart failure; L02.214 Cutaneous abscess of groin; E10.22 Type 1 diabetes mellitus with diabetic chronic kidney disease; E10.42 Type 1 diabetes mellitus with diabetic polyneuropathy; E10.649 Type 1 diabetes mellitus with hypoglycemia without coma; E66.01 Morbid (severe) obesity due to excess calories; E78.5 Hyperlipidemia, unspecified; E87.5 Hyperkalemia; I25.10 Atherosclerotic heart disease of native coronary artery without angina pectoris; J44.9 Chronic obstructive pulmonary disease, unspecified; K21.9 Gastro-esophageal reflux disease without esophagitis; Z82.49 Family history of ischemic heart disease and other diseases of the circulatory system; Z83.3 Family history of diabetes mellitus; Z87.891 Personal history of nicotine dependence; Z95.810 Presence of automatic (implantable) cardiac defibrillator; Z99.2 Dependence on renal dialysis; E21.3 Hyperparathyroidism, unspecified; F32.9 Major depressive disorder, single episode, unspecified; L97.509 Non-pressure chronic ulcer of other part of unspecified foot with unspecified severity; Z88.2 Allergy status to sulfonamides; Z88.8 Allergy status to other drugs, medicaments and biological substances; Z98.49 Cataract extraction status, unspecified eye; Z90.710 Acquired absence of both cervix and uterus; Z90.5 Acquired absence of kidney; Z60.2 Problems related to living alone; E10.621 Type 1 diabetes mellitus with foot ulcer
CPT/HCPCS: 36415; 36558; 36600; 70450; 71010; 75635; 76881; 76937; 77001; 80048; 80053; 80069; 80202; 82805; 82962; 83605; 83735; 85007; 85025; 85027; 85610; 87040; 87071; 87075; 87186; 87205; 87641; 88304; 93005; 96365; 96375; 99152; 99153; A4215; C1750; C1892; J0610; J0690; J0881; J1100; J1170; J1644; J1815; J2250; J2270; J2405; J2543; J2704; J3010; J3370; J3490; J7040; J7042; S0028; 99285-25; J2001

== ENCOUNTER 2017-03-06 14:28 | Inpatient (IN) | payer MEDICARE, OTHER ==
[2017-03-06] MEDS ORDERED: PIP/TAZO PER PHARMACY MC (15:15)
[2017-03-06 15:25] LABS: BILIRUBIN,URINE SMALL (NEG); CLARITY,URINE CLEAR; COLOR,URINE AMBER; GLUCOSE,URINE NEGATIVE (NEG); NITRITE,URINE NEGATIVE (NEG); PROTEIN,URINE 100 mg/dL (NEG-TRACE)
[2017-03-06 15:57] LABS: AMORPHOUS SEDIMENT,UR PRESENT /HPF; BACTERIA,URINE FEW /HPF (0-FEW); RBC,URINE 0 /HPF (0-2); SQUAMOUS EPITHELIAL CELL,UR OCC /LPF
[2017-03-06 16:28] LABS: ADD MAN DIFF? NO
[2017-03-06 16:29] LABS: BASO # 0.1 x10^3/uL (0.0-0.2); BASO % 1 % (0-3); EOS # 0.2 x10^3/uL (0.0-0.7); EOS % 3 % (0-3); HEMOGLOBIN 12.1 g/dL (12.0-15.5); LYMPH # 1.2 x10^3/uL (1.0-4.8); LYMPH % 18 % (24-48); MEAN CORPUSCULAR HEMOGLOBIN 33 pg (25-35); MEAN CORPUSCULAR HGB CONC 33 g/dL (31-37); MEAN CORPUSCULAR VOLUME 100 fL (79-100); MONO # 0.4 x10^3/uL (0.0-1.1); MONO % 5 % (0-9); NEUT # 4.8 x10^3uL (1.8-7.7); NEUT % 72 % (31-73); PLATELET COUNT 119 x10^3/uL (140-400); RED BLOOD COUNT 3.69 x10^6/uL (3.50-5.40); RED CELL DISTRIBUTION WIDTH 16.1 % (11.5-14.5); WHITE BLOOD COUNT 6.6 x10^3/uL (4.0-11.0)
[2017-03-06] MEDS: PIPERACILLIN/TAZO IV Push 2.25 GM VIAL. IVP ×2 (16:30→22:43)
[2017-03-06] MEDS: VANCOMYCIN 2 GM in IV DEXTROSE 5 %-0.2 % NACL 500 ML IV (16:44)
[2017-03-06 16:58] LABS: ANION GAP 6 (6-14); BLOOD UREA NITROGEN 38 mg/dL (7-20); BUN/CREATININE RATIO 15 (6-20); CALCIUM 9.1 mg/dL (8.5-10.1); CARBON DIOXIDE 36 mmol/L (21-32); CHLORIDE 99 mmol/L (98-107); CREATININE 2.6 mg/dL (0.6-1.0); GFR 19.1; GLUCOSE 152 mg/dL (70-99); POTASSIUM 4.2 mmol/L (3.5-5.1); SODIUM 141 mmol/L (136-145)
[2017-03-06 17:04] LABS: LACTIC ACID 1.1 mmol/L (0.4-2.0)
[2017-03-06 17:11] LABS: ALBUMIN 3.5 g/dL (3.4-5.0); ALBUMIN/GLOBULIN RATIO 0.8 (1.0-1.7); ALK PHOS 130 U/L (46-116); ALT (SGPT) 20 U/L (14-59); AST (SGOT) 17 U/L (15-37); TOTAL BILIRUBIN 0.5 mg/dL (0.2-1.0); TOTAL PROTEIN 7.8 g/dL (6.4-8.2)
[2017-03-06] MEDS ORDERED: ONDANSETRON PF 4 MG/2 ML VIAL. IV (18:15)
[2017-03-06] MEDS: VANCOMYCIN PER PHARMACY MC (18:25)
[2017-03-06] MEDS: fentaNYL PF VIAL 100 MCG/2 ML VIAL IV (19:56)
[2017-03-06] MEDS ORDERED: ACETAMINOPHEN 325 MG TABLET. PO (20:30)
[2017-03-06] MEDS: NYSTATIN TOPICAL POWDER 15GM BOTTLE. TP (21:00)
[2017-03-06 21:32] LABS: POC GLUCOSE 209 mg/dL (70-99)
[2017-03-06 21:41] LABS: LACTIC ACID 1.2 mmol/L (0.4-2.0)
[2017-03-06] MEDS: GABAPENTIN 400 MG CAPSULE. PO (22:41)
[2017-03-07] MEDS: fentaNYL PF VIAL 100 MCG/2 ML VIAL IV (02:40)
[2017-03-07 05:46] LABS: ADD MAN DIFF? NO
[2017-03-07 06:15] LABS: BASO # 0.1 x10^3/uL (0.0-0.2); BASO % 1 % (0-3); EOS # 0.2 x10^3/uL (0.0-0.7); EOS % 4 % (0-3); HEMATOCRIT 35.8 % (36.0-47.0); HEMOGLOBIN 11.8 g/dL (12.0-15.5); LYMPH # 1.2 x10^3/uL (1.0-4.8); LYMPH % 20 % (24-48); MEAN CORPUSCULAR HEMOGLOBIN 33 pg (25-35); MEAN CORPUSCULAR HGB CONC 33 g/dL (31-37); MEAN CORPUSCULAR VOLUME 100 fL (79-100); MONO # 0.4 x10^3/uL (0.0-1.1); MONO % 6 % (0-9); NEUT # 4.3 x10^3uL (1.8-7.7); NEUT % 69 % (31-73); PLATELET COUNT 117 x10^3/uL (140-400); RED BLOOD COUNT 3.59 x10^6/uL (3.50-5.40); WHITE BLOOD COUNT 6.2 x10^3/uL (4.0-11.0)
[2017-03-07] MEDS: PIPERACILLIN/TAZO IV Push 2.25 GM VIAL. IVP ×3 (06:41→22:45)
[2017-03-07 06:55] LABS: ANION GAP 11 (6-14); BLOOD UREA NITROGEN 37 mg/dL (7-20); CALCIUM 8.9 mg/dL (8.5-10.1); CARBON DIOXIDE 33 mmol/L (21-32); CHLORIDE 96 mmol/L (98-107); CREATININE 2.7 mg/dL (0.6-1.0); GFR 18.3; GLUCOSE 106 mg/dL (70-99); POTASSIUM 3.9 mmol/L (3.5-5.1); SODIUM 140 mmol/L (136-145)
[2017-03-07] MEDS ORDERED: SEVELAMER CARBONATE 800 MG TABLET. PO (08:00)
[2017-03-07 08:16] LABS: POC GLUCOSE 124 mg/dL (70-99)
[2017-03-07 08:43] LABS: SEDIMENTATION RATE 21 (0-25)
[2017-03-07] MEDS: FLUoxetine HCL 20 MG CAPSULE PO (09:42)
[2017-03-07] MEDS: SEVELAMER CARBONATE 800 MG TABLET. PO ×3 (09:42→17:00)
[2017-03-07] MEDS: GLIMEPIRIDE 2 MG TABLET. PO (09:42)
[2017-03-07] MEDS: NYSTATIN TOPICAL POWDER 15GM BOTTLE. TP ×3 (09:43→21:00)
[2017-03-07] MEDS: BUMETANIDE 1 MG TABLET. PO (09:43)
[2017-03-07] MEDS: CARVEDILOL 6.25 MG TABLET. PO ×2 (09:43→17:00)
[2017-03-07] MEDS: TAMSULOSIN 0.4 MG CAP.ER.24H. PO (09:43)
[2017-03-07] MEDS: ASPIRIN 325 MG TABLET PO (09:43)
[2017-03-07] MEDS: IPRATRPIUM/ALBUTEROL 0.5/2.5MG 3 ML NEBU. NEB ×4 (09:56→18:46)
[2017-03-07 11:38] LABS: POC GLUCOSE 140 mg/dL (70-99)
[2017-03-07] MEDS: VANCOMYCIN PER PHARMACY MC (13:07)
[2017-03-07] MEDS: GABAPENTIN 400 MG CAPSULE. PO ×2 (14:24→22:44)
[2017-03-07] MEDS ORDERED: IV NORMAL SALINE 1000ML BAG 1,000 ML IV (14:27)
[2017-03-07] MEDS ORDERED: DIALYSIS PATIENT. MC ×2 (14:30)
[2017-03-07] MEDS ORDERED: ALBUMIN HUMAN 25% 200 ML IV (14:30)
[2017-03-07] MEDS ORDERED: diphenhydrAMINE 50 MG/ML VIAL IV ×2 (14:30)
[2017-03-07] MEDS ORDERED: ACETAMINOPHEN 500 MG TABLET PO (14:30)
[2017-03-07] MEDS ORDERED: GABAPENTIN 300 MG CAPSULE. PO (16:00)
[2017-03-07] MEDS: HYDROcodone/APAP 7.5/325MG 1 TAB TABLET PO ×2 (16:37→22:44)
[2017-03-07 19:15] LABS: MRSA BY PCR Positive (Negative)
[2017-03-07 21:35] LABS: POC GLUCOSE 190 mg/dL (70-99)
[2017-03-08] MEDS: VANCOMYCIN RANDOM LEVEL. MC (06:00)
[2017-03-08] MEDS: PIPERACILLIN/TAZO IV Push 2.25 GM VIAL. IVP ×3 (06:32→22:55)
[2017-03-08 08:10] LABS: POC GLUCOSE 162 mg/dL (70-99)
[2017-03-08] MEDS: IPRATRPIUM/ALBUTEROL 0.5/2.5MG 3 ML NEBU. NEB ×4 (09:03→19:45)
[2017-03-08] MEDS: TAMSULOSIN 0.4 MG CAP.ER.24H. PO (09:56)
[2017-03-08] MEDS: GABAPENTIN 400 MG CAPSULE. PO ×3 (09:56→22:54)
[2017-03-08] MEDS: SEVELAMER CARBONATE 800 MG TABLET. PO ×3 (09:56→17:14)
[2017-03-08] MEDS: FLUoxetine HCL 20 MG CAPSULE PO (09:56)
[2017-03-08] MEDS: CARVEDILOL 6.25 MG TABLET. PO ×2 (09:57→17:00)
[2017-03-08] MEDS: GLIMEPIRIDE 2 MG TABLET. PO (09:57)
[2017-03-08] MEDS: ASPIRIN 325 MG TABLET PO (09:57)
[2017-03-08] MEDS: NYSTATIN TOPICAL POWDER 15GM BOTTLE. TP ×3 (09:57→21:00)
[2017-03-08] MEDS: BUMETANIDE 1 MG TABLET. PO (09:57)
[2017-03-08 11:00] LABS: POC GLUCOSE 240 mg/dL (70-99)
[2017-03-08] MEDS: HYDROcodone/APAP 7.5/325MG 1 TAB TABLET PO (11:05)
[2017-03-08] MEDS: VANCOMYCIN PER PHARMACY MC (11:16)
[2017-03-08 15:39] LABS: POC GLUCOSE 277 mg/dL (70-99)
[2017-03-08 21:26] LABS: POC GLUCOSE 290 mg/dL (70-99)
[2017-03-09] MEDS: HYDROcodone/APAP 7.5/325MG 1 TAB TABLET PO ×3 (00:32→22:54)
[2017-03-09 04:57] LABS: ADD MAN DIFF? NO
[2017-03-09 05:15] LABS: BASO # 0.1 x10^3/uL (0.0-0.2); BASO % 1 % (0-3); EOS # 0.3 x10^3/uL (0.0-0.7); EOS % 4 % (0-3); HEMATOCRIT 35.1 % (36.0-47.0); HEMOGLOBIN 11.5 g/dL (12.0-15.5); LYMPH # 1.3 x10^3/uL (1.0-4.8); LYMPH % 16 % (24-48); MEAN CORPUSCULAR HEMOGLOBIN 33 pg (25-35); MEAN CORPUSCULAR HGB CONC 33 g/dL (31-37); MEAN CORPUSCULAR VOLUME 100 fL (79-100); MONO # 0.5 x10^3/uL (0.0-1.1); MONO % 7 % (0-9); NEUT # 5.7 x10^3uL (1.8-7.7); NEUT % 73 % (31-73); PLATELET COUNT 112 x10^3/uL (140-400); RED BLOOD COUNT 3.51 x10^6/uL (3.50-5.40); RED CELL DISTRIBUTION WIDTH 16.3 % (11.5-14.5); WHITE BLOOD COUNT 7.9 x10^3/uL (4.0-11.0)
[2017-03-09 05:56] LABS: ALBUMIN/GLOBULIN RATIO 0.7 (1.0-1.7); ALK PHOS 125 U/L (46-116); ALT (SGPT) 6 U/L (14-59); ANION GAP 9 (6-14); AST (SGOT) 15 U/L (15-37); BLOOD UREA NITROGEN 62 mg/dL (7-20); BUN/CREATININE RATIO 16 (6-20); CALCIUM 8.2 mg/dL (8.5-10.1); CARBON DIOXIDE 29 mmol/L (21-32); CHLORIDE 97 mmol/L (98-107); CREATININE 3.9 mg/dL (0.6-1.0); GLUCOSE 245 mg/dL (70-99); POTASSIUM 4.9 mmol/L (3.5-5.1); SODIUM 135 mmol/L (136-145); TOTAL BILIRUBIN 0.4 mg/dL (0.2-1.0); TOTAL PROTEIN 7.2 g/dL (6.4-8.2)
[2017-03-09] MEDS: IPRATRPIUM/ALBUTEROL 0.5/2.5MG 3 ML NEBU. NEB ×4 (07:46→19:30)
[2017-03-09] MEDS: PIPERACILLIN/TAZO IV Push 2.25 GM VIAL. IVP ×3 (07:48→23:39)
[2017-03-09 07:49] LABS: POC GLUCOSE 197 mg/dL (70-99)
[2017-03-09] MEDS: ASPIRIN 325 MG TABLET PO (08:46)
[2017-03-09] MEDS: FLUoxetine HCL 20 MG CAPSULE PO (08:47)
[2017-03-09] MEDS: TAMSULOSIN 0.4 MG CAP.ER.24H. PO (08:47)
[2017-03-09] MEDS: GLIMEPIRIDE 2 MG TABLET. PO (08:47)
[2017-03-09] MEDS: GABAPENTIN 400 MG CAPSULE. PO ×3 (08:47→22:53)
[2017-03-09] MEDS: SEVELAMER CARBONATE 800 MG TABLET. PO ×3 (08:47→17:55)
[2017-03-09] MEDS: BUMETANIDE 1 MG TABLET. PO (08:47)
[2017-03-09] MEDS: NYSTATIN TOPICAL POWDER 15GM BOTTLE. TP ×3 (08:48→21:00)
[2017-03-09] MEDS ORDERED: CONTRAST GIVEN MC (09:15)
[2017-03-09] MEDS: IOHEXOL 300 MG/ML 100ML VIAL. IV (09:37)
[2017-03-09] MEDS: VANCOMYCIN PER PHARMACY MC ×2 (11:26→16:39)
[2017-03-09 12:12] LABS: HEP B SURFACE ABDY Reactive (.)
[2017-03-09 12:17] LABS: POC GLUCOSE 171 mg/dL (70-99)
[2017-03-09 17:16] LABS: POC GLUCOSE 230 mg/dL (70-99)
[2017-03-09 21:57] LABS: POC GLUCOSE 292 mg/dL (70-99)
[2017-03-10 02:34] LABS: POC GLUCOSE 239 mg/dL (70-99)
[2017-03-10] MEDS: INSULIN ASPART 300 UNITS/3 ML INSULN.PEN SQ ×3 (02:40→17:22)
[2017-03-10 05:56] LABS: HEMATOCRIT 33.1 % (36.0-47.0); MEAN CORPUSCULAR HEMOGLOBIN 33 pg (25-35); MEAN CORPUSCULAR HGB CONC 33 g/dL (31-37); MEAN CORPUSCULAR VOLUME 99 fL (79-100); PLATELET COUNT 104 x10^3/uL (140-400); RED BLOOD COUNT 3.34 x10^6/uL (3.50-5.40); RED CELL DISTRIBUTION WIDTH 16.4 % (11.5-14.5); WHITE BLOOD COUNT 7.8 x10^3/uL (4.0-11.0)
[2017-03-10] MEDS: PIPERACILLIN/TAZO IV Push 2.25 GM VIAL. IVP ×3 (06:03→22:22)
[2017-03-10] MEDS: HYDROcodone/APAP 7.5/325MG 1 TAB TABLET PO ×2 (06:03→21:11)
[2017-03-10 06:27] LABS: ANION GAP 13 (6-14); BLOOD UREA NITROGEN 79 mg/dL (7-20); CALCIUM 8.2 mg/dL (8.5-10.1); CARBON DIOXIDE 25 mmol/L (21-32); CHLORIDE 97 mmol/L (98-107); CREATININE 4.8 mg/dL (0.6-1.0); GFR 9.4; GLUCOSE 174 mg/dL (70-99); POTASSIUM 4.9 mmol/L (3.5-5.1); SODIUM 135 mmol/L (136-145)
[2017-03-10] MEDS: IPRATRPIUM/ALBUTEROL 0.5/2.5MG 3 ML NEBU. NEB ×4 (07:21→19:44)
[2017-03-10] MEDS ORDERED: DIALYSIS PATIENT. MC ×2 (07:45)
[2017-03-10] MEDS ORDERED: IV NORMAL SALINE 1000ML BAG 1,000 ML IV (07:45)
[2017-03-10] MEDS: SEVELAMER CARBONATE 800 MG TABLET. PO ×4 (08:00→17:17)
[2017-03-10] MEDS: NYSTATIN TOPICAL POWDER 15GM BOTTLE. TP ×3 (09:00→21:14)
[2017-03-10] MEDS: GABAPENTIN 400 MG CAPSULE. PO ×3 (09:00→21:11)
[2017-03-10] MEDS: VANCOMYCIN PER PHARMACY MC (13:01)
[2017-03-10] MEDS: GLIMEPIRIDE 2 MG TABLET. PO (14:33)
[2017-03-10] MEDS: FLUoxetine HCL 20 MG CAPSULE PO (14:34)
[2017-03-10] MEDS: ASPIRIN 325 MG TABLET PO (14:34)
[2017-03-10] MEDS: BUMETANIDE 1 MG TABLET. PO (14:36)
[2017-03-10] MEDS: TAMSULOSIN 0.4 MG CAP.ER.24H. PO (14:36)
[2017-03-10] MEDS: VANCOMYCIN 500 MG in IV DEXTROSE 5% 100 ML IV (17:17)
[2017-03-10 20:53] LABS: POC GLUCOSE 126 mg/dL (70-99)
[2017-03-10 20:53] LABS: POC GLUCOSE 138 mg/dL (70-99)
[2017-03-10 20:53] LABS: POC GLUCOSE 76 mg/dL (70-99)
[2017-03-10] MEDS: LACTOBACILLUS RHAMNOSUS GG 1 CAPSULE. PO (21:11)
[2017-03-11] MEDS: HYDROcodone/APAP 7.5/325MG 1 TAB TABLET PO ×4 (01:11→21:59)
[2017-03-11] MEDS: PIPERACILLIN/TAZO IV Push 2.25 GM VIAL. IVP ×3 (06:42→21:59)
[2017-03-11] MEDS: IPRATRPIUM/ALBUTEROL 0.5/2.5MG 3 ML NEBU. NEB ×4 (07:54→19:45)
[2017-03-11] MEDS: INSULIN ASPART 300 UNITS/3 ML INSULN.PEN SQ ×3 (08:00→17:00)
[2017-03-11] MEDS: GABAPENTIN 400 MG CAPSULE. PO ×3 (08:45→21:04)
[2017-03-11] MEDS: GLIMEPIRIDE 2 MG TABLET. PO (08:45)
[2017-03-11] MEDS: TAMSULOSIN 0.4 MG CAP.ER.24H. PO (08:46)
[2017-03-11] MEDS: FLUoxetine HCL 20 MG CAPSULE PO (08:46)
[2017-03-11] MEDS: LACTOBACILLUS RHAMNOSUS GG 1 CAPSULE. PO ×2 (08:46→21:04)
[2017-03-11] MEDS: ASPIRIN 325 MG TABLET PO (08:46)
[2017-03-11] MEDS: BUMETANIDE 1 MG TABLET. PO (08:46)
[2017-03-11] MEDS: SEVELAMER CARBONATE 800 MG TABLET. PO ×3 (08:46→17:27)
[2017-03-11] MEDS: NYSTATIN TOPICAL POWDER 15GM BOTTLE. TP ×3 (08:47→21:00)
[2017-03-11 11:54] LABS: POC GLUCOSE 48 mg/dL (70-99)
[2017-03-11 11:54] LABS: POC GLUCOSE 124 mg/dL (70-99)
[2017-03-11 11:54] LABS: POC GLUCOSE 148 mg/dL (70-99)
[2017-03-11 14:57] LABS: HEMATOCRIT 34.3 % (36.0-47.0); HEMOGLOBIN 11.2 g/dL (12.0-15.5); MEAN CORPUSCULAR HEMOGLOBIN 33 pg (25-35); MEAN CORPUSCULAR HGB CONC 33 g/dL (31-37); MEAN CORPUSCULAR VOLUME 100 fL (79-100); PLATELET COUNT 110 x10^3/uL (140-400); RED BLOOD COUNT 3.45 x10^6/uL (3.50-5.40); RED CELL DISTRIBUTION WIDTH 16.4 % (11.5-14.5); WHITE BLOOD COUNT 6.4 x10^3/uL (4.0-11.0)
[2017-03-11 16:57] LABS: INR 1.5 (0.8-1.1); PARTIAL THROMBOPLASTIN TIME 34 SEC (24-38); PROTHROMBIN TIME PATIENT 16.8 SEC (11.7-14.0)
[2017-03-11 17:39] LABS: POC GLUCOSE 86 mg/dL (70-99)
[2017-03-11 21:50] LABS: POC GLUCOSE 60 mg/dL (70-99)
[2017-03-11 22:09] LABS: POC GLUCOSE 68 mg/dL (70-99)
[2017-03-12] MEDS: HYDROcodone/APAP 7.5/325MG 1 TAB TABLET PO ×4 (02:51→21:16)
[2017-03-12 05:48] LABS: ADD MAN DIFF? NO
[2017-03-12 05:52] LABS: BASO # 0.1 x10^3/uL (0.0-0.2); BASO % 1 % (0-3); EOS # 0.3 x10^3/uL (0.0-0.7); EOS % 5 % (0-3); HEMATOCRIT 33.5 % (36.0-47.0); HEMOGLOBIN 11.1 g/dL (12.0-15.5); LYMPH # 1.1 x10^3/uL (1.0-4.8); LYMPH % 16 % (24-48); MEAN CORPUSCULAR HEMOGLOBIN 33 pg (25-35); MEAN CORPUSCULAR HGB CONC 33 g/dL (31-37); MEAN CORPUSCULAR VOLUME 99 fL (79-100); MONO # 0.5 x10^3/uL (0.0-1.1); MONO % 8 % (0-9); NEUT # 4.7 x10^3uL (1.8-7.7); NEUT % 71 % (31-73); PLATELET COUNT 118 x10^3/uL (140-400); RED BLOOD COUNT 3.38 x10^6/uL (3.50-5.40); RED CELL DISTRIBUTION WIDTH 15.9 % (11.5-14.5); WHITE BLOOD COUNT 6.7 x10^3/uL (4.0-11.0)
[2017-03-12 06:11] LABS: INR 1.5 (0.8-1.1); PROTHROMBIN TIME PATIENT 16.8 SEC (11.7-14.0)
[2017-03-12] MEDS: PIPERACILLIN/TAZO IV Push 2.25 GM VIAL. IVP ×3 (06:39→21:35)
[2017-03-12 07:13] LABS: ALBUMIN 2.8 g/dL (3.4-5.0); ALT (SGPT) 27 U/L (14-59); ANION GAP 10 (6-14); BLOOD UREA NITROGEN 64 mg/dL (7-20); BUN/CREATININE RATIO 15 (6-20); CALCIUM 7.9 mg/dL (8.5-10.1); CARBON DIOXIDE 27 mmol/L (21-32); CHLORIDE 95 mmol/L (98-107); CREATININE 4.3 mg/dL (0.6-1.0); GFR 10.7; GLUCOSE 91 mg/dL (70-99); POTASSIUM 4.9 mmol/L (3.5-5.1); SODIUM 132 mmol/L (136-145)
[2017-03-12 07:25] LABS: ALBUMIN/GLOBULIN RATIO 0.6 (1.0-1.7); ALK PHOS 134 U/L (46-116); AST (SGOT) 15 U/L (15-37); TOTAL BILIRUBIN 0.5 mg/dL (0.2-1.0); TOTAL PROTEIN 7.2 g/dL (6.4-8.2)
[2017-03-12] MEDS ORDERED: IV NORMAL SALINE 1000ML BAG 1,000 ML IV ×4 (07:43→17:00)
[2017-03-12] MEDS ORDERED: DIALYSIS PATIENT. MC ×4 (07:45→17:00)
[2017-03-12] MEDS: INSULIN ASPART 300 UNITS/3 ML INSULN.PEN SQ ×3 (08:00→17:00)
[2017-03-12] MEDS: SEVELAMER CARBONATE 800 MG TABLET. PO ×3 (08:00→21:15)
[2017-03-12] MEDS: GLIMEPIRIDE 2 MG TABLET. PO (08:00)
[2017-03-12] MEDS: BUMETANIDE 1 MG TABLET. PO (08:12)
[2017-03-12] MEDS: ASPIRIN 325 MG TABLET PO (08:12)
[2017-03-12] MEDS: TAMSULOSIN 0.4 MG CAP.ER.24H. PO (08:13)
[2017-03-12] MEDS: LACTOBACILLUS RHAMNOSUS GG 1 CAPSULE. PO ×2 (08:13→21:15)
[2017-03-12] MEDS: NYSTATIN TOPICAL POWDER 15GM BOTTLE. TP ×3 (08:14→21:00)
[2017-03-12] MEDS: FLUoxetine HCL 20 MG CAPSULE PO (08:14)
[2017-03-12] MEDS: GABAPENTIN 400 MG CAPSULE. PO ×3 (08:14→21:00)
[2017-03-12] MEDS: DEXTROSE 50% 25 GM / 50ML DISP.SYRIN. IV (08:17)
[2017-03-12] MEDS: IPRATRPIUM/ALBUTEROL 0.5/2.5MG 3 ML NEBU. NEB ×4 (08:25→19:50)
[2017-03-12 08:59] LABS: POC GLUCOSE 59 mg/dL (70-99)
[2017-03-12 09:57] LABS: POC GLUCOSE 82 mg/dL (70-99)
[2017-03-12] MEDS ORDERED: IODIXANOL 320 MG/ML 100 ML VIAL. (10:36)
[2017-03-12] MEDS ORDERED: LIDOCAINE WITH 8.4% SOD BICARB 3 ML DISP.SYRIN. IJ (10:37)
[2017-03-12] MEDS ORDERED: IODIXANOL 320MG/ML 50ML VIAL. (10:37)
[2017-03-12] MEDS ORDERED: MIDAZOLAM HCL/PF 5 MG/5 ML VIAL. (10:49)
[2017-03-12] MEDS ORDERED: fentaNYL PF VIAL 250 MCG/5 ML VIAL (10:49)
[2017-03-12] MEDS ORDERED: HEPARIN for IV BOLUS 10,000 UNIT/10 ML VIAL. (10:49)
[2017-03-12] MEDS ORDERED: CLOPIDOGREL BISULFATE 75 MG TABLET (12:09)
[2017-03-12] MEDS: IODIXANOL 320 MG/ML 100 ML VIAL. IART (12:14)
[2017-03-12] MEDS ORDERED: CONTRAST GIVEN MC (12:15)
[2017-03-12] MEDS: CLOPIDOGREL BISULFATE 75 MG TABLET PO (12:15)
[2017-03-12] MEDS: fentaNYL PF VIAL 250 MCG/5 ML VIAL IV (12:15)
[2017-03-12] MEDS: MIDAZOLAM HCL/PF 5 MG/5 ML VIAL. IV (12:15)
[2017-03-12] MEDS: LIDOCAINE WITH 8.4% SOD BICARB 3 ML DISP.SYRIN. IJ (12:15)
[2017-03-12] MEDS: HEPARIN for IV BOLUS 10,000 UNIT/10 ML VIAL. IV (12:15)
[2017-03-12] MEDS: VANCOMYCIN 500 MG in IV DEXTROSE 5% 100 ML IV (14:14)
[2017-03-12] MEDS: VANCOMYCIN PER PHARMACY MC ×2 (14:53→14:55)
[2017-03-12 20:48] LABS: POC GLUCOSE 71 mg/dL (70-99)
[2017-03-13] MEDS: HYDROcodone/APAP 7.5/325MG 1 TAB TABLET PO ×3 (01:21→19:24)
[2017-03-13] MEDS: PIPERACILLIN/TAZO IV Push 2.25 GM VIAL. IVP ×4 (06:11→21:41)
[2017-03-13] MEDS ORDERED: ONDANSETRON PF 4 MG/2 ML VIAL. IV (07:00)
[2017-03-13] MEDS ORDERED: fentaNYL PF VIAL 100 MCG/2 ML VIAL IV ×2 (07:00)
[2017-03-13] MEDS ORDERED: PROCHLORPERAZINE 10 MG/2 ML VIAL. IV (07:00)
[2017-03-13] MEDS ORDERED: MORPHINE SULFATE 2 MG/ML DISP.SYRIN. IV ×2 (07:00→22:00)
[2017-03-13] MEDS ORDERED: LIDOCAINE 1% PF 2 ML VIAL. ID (07:00)
[2017-03-13] MEDS ORDERED: IV RINGERS,LACTATED 1000ML 1,000 ML IV (07:00)
[2017-03-13] MEDS ORDERED: HYDROmorphone 2 MG/ML VIAL IV (07:00)
[2017-03-13] MEDS: IPRATRPIUM/ALBUTEROL 0.5/2.5MG 3 ML NEBU. NEB ×4 (07:27→20:52)
[2017-03-13] MEDS: CLOPIDOGREL BISULFATE 75 MG TABLET PO (08:00)
[2017-03-13] MEDS: SEVELAMER CARBONATE 800 MG TABLET. PO ×3 (08:00→18:25)
[2017-03-13] MEDS: INSULIN ASPART 300 UNITS/3 ML INSULN.PEN SQ ×3 (08:00→16:57)
[2017-03-13] MEDS: GLIMEPIRIDE 2 MG TABLET. PO (08:00)
[2017-03-13 08:44] LABS: POC GLUCOSE 81 mg/dL (70-99)
[2017-03-13] MEDS: BUMETANIDE 1 MG TABLET. PO (09:00)
[2017-03-13] MEDS: TAMSULOSIN 0.4 MG CAP.ER.24H. PO (09:00)
[2017-03-13] MEDS: LACTOBACILLUS RHAMNOSUS GG 1 CAPSULE. PO ×2 (09:00→21:40)
[2017-03-13] MEDS: GABAPENTIN 400 MG CAPSULE. PO ×2 (09:00→21:40)
[2017-03-13] MEDS: ASPIRIN 325 MG TABLET PO (09:00)
[2017-03-13] MEDS: FLUoxetine HCL 20 MG CAPSULE PO (09:00)
[2017-03-13] MEDS: NYSTATIN TOPICAL POWDER 15GM BOTTLE. TP ×3 (09:00→21:00)
[2017-03-13 12:05] LABS: POC GLUCOSE 74 mg/dL (70-99)
[2017-03-13] MEDS: DEXTROSE 50% 25 GM / 50ML DISP.SYRIN. IV (12:13)
[2017-03-13 12:33] LABS: POC GLUCOSE 124 mg/dL (70-99)
[2017-03-13] MEDS: MORPHINE SULFATE 2 MG/ML DISP.SYRIN. IV ×2 (12:35→22:24)
[2017-03-13] MEDS ORDERED: LIDOCAINE 2% PF Vial for OR 5 ML VIAL. (13:32)
[2017-03-13] MEDS ORDERED: PROPOFOL 20 ML IV (13:32)
[2017-03-13] MEDS: IV NORMAL SALINE 1000ML BAG 1,000 ML IV (13:45)
[2017-03-13] MEDS: LIDOCAINE 1% 20 ML VIAL. (14:56)
[2017-03-13] MEDS ORDERED: PHENYLEPHRINE in 0.9% NACL PF 1 MG/10 ML SYRINGE. IV (15:09)
[2017-03-13 16:29] LABS: POC GLUCOSE 85 mg/dL (70-99)
[2017-03-13] MEDS: FLUCONAZOLE 100 MG TABLET. PO (18:24)
[2017-03-13] MEDS ORDERED: GABAPENTIN 400 MG CAPSULE. PO (21:00)
[2017-03-13 21:01] LABS: POC GLUCOSE 228 mg/dL (70-99)
[2017-03-13 21:01] LABS: POC GLUCOSE 90 mg/dL (70-99)
[2017-03-14] MEDS: HYDROcodone/APAP 7.5/325MG 1 TAB TABLET PO ×3 (02:30→20:49)
[2017-03-14] MEDS: PIPERACILLIN/TAZO IV Push 2.25 GM VIAL. IVP ×3 (06:29→22:49)
[2017-03-14] MEDS: IPRATRPIUM/ALBUTEROL 0.5/2.5MG 3 ML NEBU. NEB ×4 (07:03→21:05)
[2017-03-14] MEDS: NYSTATIN TOPICAL POWDER 15GM BOTTLE. TP ×3 (09:00→21:00)
[2017-03-14] MEDS: BUMETANIDE 1 MG TABLET. PO (09:10)
[2017-03-14] MEDS: GABAPENTIN 400 MG CAPSULE. PO (09:11)
[2017-03-14] MEDS: ASPIRIN 325 MG TABLET PO (09:11)
[2017-03-14] MEDS: CLOPIDOGREL BISULFATE 75 MG TABLET PO (09:11)
[2017-03-14] MEDS: FLUoxetine HCL 20 MG CAPSULE PO (09:11)
[2017-03-14] MEDS: FLUCONAZOLE 100 MG TABLET. PO (09:11)
[2017-03-14] MEDS: LACTOBACILLUS RHAMNOSUS GG 1 CAPSULE. PO ×2 (09:11→20:48)
[2017-03-14] MEDS: TAMSULOSIN 0.4 MG CAP.ER.24H. PO (09:12)
[2017-03-14] MEDS: SEVELAMER CARBONATE 800 MG TABLET. PO ×3 (09:16→17:00)
[2017-03-14] MEDS: GLIMEPIRIDE 2 MG TABLET. PO (09:16)
[2017-03-14] MEDS: INSULIN ASPART 300 UNITS/3 ML INSULN.PEN SQ ×3 (09:19→17:00)
[2017-03-14 09:38] LABS: POC GLUCOSE 168 mg/dL (70-99)
[2017-03-14 10:44] LABS: POC GLUCOSE 181 mg/dL (70-99)
[2017-03-14] MEDS ORDERED: ONDANSETRON PF 4 MG/2 ML VIAL. IV (13:45)
[2017-03-14] MEDS ORDERED: DIALYSIS PATIENT. MC ×2 (14:45)
[2017-03-14] MEDS ORDERED: IV NORMAL SALINE 1000ML BAG 1,000 ML IV ×2 (15:00)
[2017-03-14 15:59] LABS: POC GLUCOSE 185 mg/dL (70-99)
[2017-03-14] MEDS ORDERED: GABAPENTIN 400 MG CAPSULE. PO (16:00)
[2017-03-14] MEDS: GABAPENTIN 300 MG CAPSULE. PO (20:48)
[2017-03-14 21:25] LABS: POC GLUCOSE 183 mg/dL (70-99)
[2017-03-15] MEDS: HYDROcodone/APAP 7.5/325MG 1 TAB TABLET PO ×4 (02:16→23:07)
[2017-03-15] MEDS: PIPERACILLIN/TAZO IV Push 2.25 GM VIAL. IVP ×3 (05:49→21:06)
[2017-03-15 06:06] LABS: ADD MAN DIFF? NO
[2017-03-15 06:26] LABS: BASO % 1 % (0-3); EOS # 0.3 x10^3/uL (0.0-0.7); EOS % 5 % (0-3); HEMATOCRIT 31.3 % (36.0-47.0); HEMOGLOBIN 10.2 g/dL (12.0-15.5); LYMPH # 0.9 x10^3/uL (1.0-4.8); LYMPH % 15 % (24-48); MEAN CORPUSCULAR HEMOGLOBIN 32 pg (25-35); MEAN CORPUSCULAR HGB CONC 33 g/dL (31-37); MEAN CORPUSCULAR VOLUME 100 fL (79-100); MONO # 0.5 x10^3/uL (0.0-1.1); MONO % 8 % (0-9); NEUT # 4.3 x10^3uL (1.8-7.7); NEUT % 71 % (31-73); PLATELET COUNT 135 x10^3/uL (140-400); RED BLOOD COUNT 3.13 x10^6/uL (3.50-5.40); RED CELL DISTRIBUTION WIDTH 16.3 % (11.5-14.5)
[2017-03-15 06:48] LABS: ANION GAP 10 (6-14); BLOOD UREA NITROGEN 32 mg/dL (7-20); CALCIUM 8.3 mg/dL (8.5-10.1); CARBON DIOXIDE 30 mmol/L (21-32); CHLORIDE 98 mmol/L (98-107); CREATININE 2.8 mg/dL (0.6-1.0); GFR 17.5; GLUCOSE 187 mg/dL (70-99); POTASSIUM 4.2 mmol/L (3.5-5.1); SODIUM 138 mmol/L (136-145)
[2017-03-15] MEDS: IPRATRPIUM/ALBUTEROL 0.5/2.5MG 3 ML NEBU. NEB ×4 (07:17→19:40)
[2017-03-15] MEDS: INSULIN ASPART 300 UNITS/3 ML INSULN.PEN SQ ×3 (08:00→17:07)
[2017-03-15] MEDS: FLUoxetine HCL 20 MG CAPSULE PO (08:23)
[2017-03-15] MEDS: SEVELAMER CARBONATE 800 MG TABLET. PO ×3 (08:23→17:05)
[2017-03-15] MEDS: GLIMEPIRIDE 2 MG TABLET. PO (08:23)
[2017-03-15] MEDS: TAMSULOSIN 0.4 MG CAP.ER.24H. PO (08:23)
[2017-03-15] MEDS: BUMETANIDE 1 MG TABLET. PO (08:23)
[2017-03-15] MEDS: LACTOBACILLUS RHAMNOSUS GG 1 CAPSULE. PO ×2 (08:23→21:01)
[2017-03-15] MEDS: NYSTATIN TOPICAL POWDER 15GM BOTTLE. TP ×3 (08:24→21:00)
[2017-03-15] MEDS: CLOPIDOGREL BISULFATE 75 MG TABLET PO (08:24)
[2017-03-15] MEDS: ASPIRIN 325 MG TABLET PO (08:24)
[2017-03-15 08:44] LABS: POC GLUCOSE 136 mg/dL (70-99)
[2017-03-15 16:10] LABS: POC GLUCOSE 191 mg/dL (70-99)
[2017-03-15 16:10] LABS: POC GLUCOSE 167 mg/dL (70-99)
[2017-03-15 21:07] LABS: POC GLUCOSE 208 mg/dL (70-99)
[2017-03-16] MEDS: HYDROcodone/APAP 7.5/325MG 1 TAB TABLET PO ×4 (03:33→21:02)
[2017-03-16] MEDS: PIPERACILLIN/TAZO IV Push 2.25 GM VIAL. IVP (05:47)
[2017-03-16] MEDS: IPRATRPIUM/ALBUTEROL 0.5/2.5MG 3 ML NEBU. NEB ×4 (07:50→19:49)
[2017-03-16] MEDS: INSULIN ASPART 300 UNITS/3 ML INSULN.PEN SQ ×3 (07:50→16:25)
[2017-03-16 07:53] LABS: POC GLUCOSE 106 mg/dL (70-99)
[2017-03-16] MEDS: GLIMEPIRIDE 2 MG TABLET. PO (09:00)
[2017-03-16] MEDS: SEVELAMER CARBONATE 800 MG TABLET. PO ×3 (09:00→16:14)
[2017-03-16] MEDS: BUMETANIDE 1 MG TABLET. PO (09:00)
[2017-03-16] MEDS: ASPIRIN 325 MG TABLET PO (09:00)
[2017-03-16] MEDS: FLUoxetine HCL 20 MG CAPSULE PO (09:01)
[2017-03-16] MEDS: LACTOBACILLUS RHAMNOSUS GG 1 CAPSULE. PO ×2 (09:01→21:01)
[2017-03-16] MEDS: CLOPIDOGREL BISULFATE 75 MG TABLET PO (09:01)
[2017-03-16] MEDS: TAMSULOSIN 0.4 MG CAP.ER.24H. PO (09:01)
[2017-03-16] MEDS: NYSTATIN TOPICAL POWDER 15GM BOTTLE. TP ×3 (09:02→21:00)
[2017-03-16 11:18] LABS: POC GLUCOSE 165 mg/dL (70-99)
[2017-03-16] MEDS: AMOXICILLIN/K CLAV 500/125MG TABLET. PO (14:09)
[2017-03-16] MEDS: VANCOMYCIN 1.5 GM in IV DEXTROSE 5 %-0.2 % NACL 500 ML IV (14:09)
[2017-03-16] MEDS ORDERED: MAGNESIUM SULFATE 2GM 50 ML IV (15:00)
[2017-03-16 16:18] LABS: POC GLUCOSE 187 mg/dL (70-99)
[2017-03-16] MEDS: MAG HYDROX/ALUMINUM HYD/SIMETH 30 ML ORAL.SUSP PO (21:01)
[2017-03-16 21:25] LABS: POC GLUCOSE 206 mg/dL (70-99)
[2017-03-17] MEDS: HYDROcodone/APAP 7.5/325MG 1 TAB TABLET PO ×5 (01:01→23:14)
[2017-03-17 05:23] LABS: HEMOGLOBIN 10.5 g/dL (12.0-15.5)
[2017-03-17 05:46] LABS: ALBUMIN 2.6 g/dL (3.4-5.0); ANION GAP 11 (6-14); BLOOD UREA NITROGEN 55 mg/dL (7-20); CALCIUM 8.1 mg/dL (8.5-10.1); CARBON DIOXIDE 30 mmol/L (21-32); CHLORIDE 94 mmol/L (98-107); CREATININE 3.6 mg/dL (0.6-1.0); GFR 13.1; GLUCOSE 119 mg/dL (70-99); MAGNESIUM 2.5 mg/dL (1.8-2.4); PHOSPHORUS 4.6 mg/dL (2.6-4.7); POTASSIUM 4.7 mmol/L (3.5-5.1); SODIUM 135 mmol/L (136-145)
[2017-03-17] MEDS: IPRATRPIUM/ALBUTEROL 0.5/2.5MG 3 ML NEBU. NEB ×4 (07:19→19:29)
[2017-03-17] MEDS: PANTOPRAZOLE 40 MG TABLET.DR. PO (07:30)
[2017-03-17] MEDS: INSULIN ASPART 300 UNITS/3 ML INSULN.PEN SQ ×3 (08:00→17:00)
[2017-03-17] MEDS: SEVELAMER CARBONATE 800 MG TABLET. PO ×3 (08:00→18:07)
[2017-03-17] MEDS: GLIMEPIRIDE 2 MG TABLET. PO (08:00)
[2017-03-17] MEDS ORDERED: IV NORMAL SALINE 1000ML BAG 1,000 ML IV ×2 (08:39)
[2017-03-17] MEDS ORDERED: DIALYSIS PATIENT. MC ×2 (08:45)
[2017-03-17] MEDS: LACTOBACILLUS RHAMNOSUS GG 1 CAPSULE. PO ×2 (09:00→22:14)
[2017-03-17] MEDS: NYSTATIN TOPICAL POWDER 15GM BOTTLE. TP ×3 (09:00→21:00)
[2017-03-17 11:52] LABS: POC GLUCOSE 79 mg/dL (70-99)
[2017-03-17] MEDS: VANCOMYCIN PER PHARMACY MC (15:08)
[2017-03-17 16:50] LABS: POC GLUCOSE 106 mg/dL (70-99)
[2017-03-17] MEDS: FLUoxetine HCL 20 MG CAPSULE PO (18:07)
[2017-03-17] MEDS: TAMSULOSIN 0.4 MG CAP.ER.24H. PO (18:07)
[2017-03-17] MEDS: ASPIRIN 325 MG TABLET PO (18:07)
[2017-03-17] MEDS: CLOPIDOGREL BISULFATE 75 MG TABLET PO (18:07)
[2017-03-17] MEDS: BUMETANIDE 1 MG TABLET. PO (18:07)
[2017-03-17] MEDS: AMOXICILLIN/K CLAV 500/125MG TABLET. PO (18:07)
[2017-03-17] MEDS: VANCOMYCIN 500 MG in IV NORMAL SALINE 100ML 100 ML IV (18:22)
[2017-03-17 21:29] LABS: POC GLUCOSE 182 mg/dL (70-99)
[2017-03-17] MEDS: GABAPENTIN 300 MG CAPSULE. PO (22:14)
[2017-03-18 06:22] LABS: ALBUMIN 2.7 g/dL (3.4-5.0); ANION GAP 9 (6-14); BLOOD UREA NITROGEN 31 mg/dL (7-20); CALCIUM 8.6 mg/dL (8.5-10.1); CARBON DIOXIDE 28 mmol/L (21-32); CHLORIDE 100 mmol/L (98-107); CREATININE 2.5 mg/dL (0.6-1.0); GLUCOSE 120 mg/dL (70-99); MAGNESIUM 2.2 mg/dL (1.8-2.4); PHOSPHORUS 3.5 mg/dL (2.6-4.7); POTASSIUM 4.5 mmol/L (3.5-5.1); SODIUM 137 mmol/L (136-145)
[2017-03-18] MEDS: INSULIN ASPART 300 UNITS/3 ML INSULN.PEN SQ ×4 (08:00→17:39)
[2017-03-18] MEDS: IPRATRPIUM/ALBUTEROL 0.5/2.5MG 3 ML NEBU. NEB ×4 (08:09→20:00)
[2017-03-18 08:22] LABS: POC GLUCOSE 94 mg/dL (70-99)
[2017-03-18] MEDS: NYSTATIN TOPICAL POWDER 15GM BOTTLE. TP ×2 (09:00→14:00)
[2017-03-18] MEDS: BUMETANIDE 1 MG TABLET. PO (09:36)
[2017-03-18] MEDS: ASPIRIN 325 MG TABLET PO (09:36)
[2017-03-18] MEDS: SEVELAMER CARBONATE 800 MG TABLET. PO ×3 (09:36→17:35)
[2017-03-18] MEDS: AMOXICILLIN/K CLAV 500/125MG TABLET. PO (09:36)
[2017-03-18] MEDS: FLUoxetine HCL 20 MG CAPSULE PO (09:36)
[2017-03-18] MEDS: LACTOBACILLUS RHAMNOSUS GG 1 CAPSULE. PO (09:37)
[2017-03-18] MEDS: GLIMEPIRIDE 2 MG TABLET. PO (09:37)
[2017-03-18] MEDS: PANTOPRAZOLE 40 MG TABLET.DR. PO (09:37)
[2017-03-18] MEDS: CLOPIDOGREL BISULFATE 75 MG TABLET PO (09:37)
[2017-03-18] MEDS: TAMSULOSIN 0.4 MG CAP.ER.24H. PO (09:37)
[2017-03-18] MEDS: HYDROcodone/APAP 7.5/325MG 1 TAB TABLET PO ×3 (09:38→18:38)
[2017-03-18 11:36] LABS: POC GLUCOSE 123 mg/dL (70-99)
[2017-03-18 17:22] LABS: POC GLUCOSE 158 mg/dL (70-99)
[2017-03-19] MEDS ORDERED: DARBEPOETIN ALFA 60 MCG/0.3 ML DISP.SYRIN. SQ (21:00)
== END 2017-03-18 18:00 | disposition home health service (06) | DRG 853 ==
LOC: ER 14:28 → 4 NORTH 18:10
PROC: 0Y6N0Z9 Detachment at Left Foot, Partial 1st Ray, Open Approach (ICD-10-PCS; principal; 2017-03-13 14:30)
PROC: 0QBR0ZZ Excision of Left Toe Phalanx, Open Approach (ICD-10-PCS; 2017-03-13 14:30)
PROC: 047L3D1 Dilation of Left Femoral Artery with Intraluminal Device, using Drug-Coated Balloon, Percutaneous Approach (ICD-10-PCS; 2017-03-13 14:45)
PROC: B41C1ZZ Fluoroscopy of Pelvic Arteries using Low Osmolar Contrast (ICD-10-PCS; 2017-03-13 14:45)
PROC: B41G1ZZ Fluoroscopy of Left Lower Extremity Arteries using Low Osmolar Contrast (ICD-10-PCS; 2017-03-13 14:45)
PROC: 5A1D70Z Performance of Urinary Filtration, Intermittent, Less than 6 Hours Per Day (ICD-10-PCS; 2017-03-13 14:45)
DX: A41.9 Sepsis, unspecified organism (principal); N18.6 End stage renal disease; G93.41 Metabolic encephalopathy; E11.22 Type 2 diabetes mellitus with diabetic chronic kidney disease; E11.42 Type 2 diabetes mellitus with diabetic polyneuropathy; L03.90 Cellulitis, unspecified; E11.52 Type 2 diabetes mellitus with diabetic peripheral angiopathy with gangrene; Z68.41 Body mass index [BMI] 40.0-44.9, adult; J44.0 Chronic obstructive pulmonary disease with (acute) lower respiratory infection; I50.9 Heart failure, unspecified; D63.1 Anemia in chronic kidney disease; E11.621 Type 2 diabetes mellitus with foot ulcer; E11.69 Type 2 diabetes mellitus with other specified complication; E66.01 Morbid (severe) obesity due to excess calories; E78.5 Hyperlipidemia, unspecified; F17.210 Nicotine dependence, cigarettes, uncomplicated; G47.30 Sleep apnea, unspecified; I12.9 Hypertensive chronic kidney disease with stage 1 through stage 4 chronic kidney disease, or unspecified chronic kidney disease; I25.10 Atherosclerotic heart disease of native coronary artery without angina pectoris; I70.0 Atherosclerosis of aorta; K21.9 Gastro-esophageal reflux disease without esophagitis; K42.9 Umbilical hernia without obstruction or gangrene; K80.20 Calculus of gallbladder without cholecystitis without obstruction; L97.529 Non-pressure chronic ulcer of other part of left foot with unspecified severity; Z82.49 Family history of ischemic heart disease and other diseases of the circulatory system; Z83.3 Family history of diabetes mellitus; Z86.14 Personal history of Methicillin resistant Staphylococcus aureus infection; Z89.412 Acquired absence of left great toe; Z89.422 Acquired absence of other left toe(s); Z90.710 Acquired absence of both cervix and uterus; Z91.19 Patient's noncompliance with other medical treatment and regimen; Z95.810 Presence of automatic (implantable) cardiac defibrillator; Z99.2 Dependence on renal dialysis; E21.3 Hyperparathyroidism, unspecified; F32.9 Major depressive disorder, single episode, unspecified; H26.9 Unspecified cataract; M19.90 Unspecified osteoarthritis, unspecified site; J44.9 Chronic obstructive pulmonary disease, unspecified; Z88.2 Allergy status to sulfonamides; Z88.8 Allergy status to other drugs, medicaments and biological substances; Z98.49 Cataract extraction status, unspecified eye; J20.9 Acute bronchitis, unspecified
CPT/HCPCS: 36415; 37226; 71275; 73630; 73700; 75625; 75635; 75710; 80048; 80053; 80069; 80202; 81001; 82962; 83605; 83735; 85018; 85025; 85027; 85610; 85651; 85730; 86704; 86706; 87040; 87071; 87075; 87086; 87186; 87205; 87641; 88305; 88311; 93925; 94640; 94667; 94668; 94760; 96365; 96366; 96375; 97116-GP; 97161-GP; 97166-GO; 97530-GP; 97535-GO; 99152; 99153; 99285; 99285-25; C1760; C1769; C1892; C1894; C2623; G0269; J0690; J1644; J1815; J2250; J2270; J2370; J2543; J2704; J3010; J3370; J7030; J7040; J7042; J7620; Q9967

== ENCOUNTER → 2017-04-22 | Outpatient (CLI) | payer MEDICARE, OTHER | END | disposition home or self-care (01) | LOC: PMGWOUND 08:22 | DX: E11.621 Type 2 diabetes mellitus with foot ulcer (principal); L97.521 Non-pressure chronic ulcer of other part of left foot limited to breakdown of skin; L97.511 Non-pressure chronic ulcer of other part of right foot limited to breakdown of skin; E11.39 Type 2 diabetes mellitus with other diabetic ophthalmic complication; H40.9 Unspecified glaucoma; E11.36 Type 2 diabetes mellitus with diabetic cataract; E11.319 Type 2 diabetes mellitus with unspecified diabetic retinopathy without macular edema; I25.10 Atherosclerotic heart disease of native coronary artery without angina pectoris; E11.42 Type 2 diabetes mellitus with diabetic polyneuropathy; E78.00 Pure hypercholesterolemia, unspecified; J44.9 Chronic obstructive pulmonary disease, unspecified; G47.30 Sleep apnea, unspecified; K21.9 Gastro-esophageal reflux disease without esophagitis; M19.90 Unspecified osteoarthritis, unspecified site; E11.52 Type 2 diabetes mellitus with diabetic peripheral angiopathy with gangrene; I96 Gangrene, not elsewhere classified; F32.9 Major depressive disorder, single episode, unspecified; F17.210 Nicotine dependence, cigarettes, uncomplicated; E11.22 Type 2 diabetes mellitus with diabetic chronic kidney disease; I13.2 Hypertensive heart and chronic kidney disease with heart failure and with stage 5 chronic kidney disease, or end stage renal disease; N18.6 End stage renal disease; I50.9 Heart failure, unspecified; J44.0 Chronic obstructive pulmonary disease with (acute) lower respiratory infection; J44.1 Chronic obstructive pulmonary disease with (acute) exacerbation; E21.3 Hyperparathyroidism, unspecified; E66.01 Morbid (severe) obesity due to excess calories; Z99.2 Dependence on renal dialysis; Z68.41 Body mass index [BMI] 40.0-44.9, adult; Z90.710 Acquired absence of both cervix and uterus; Z89.412 Acquired absence of left great toe; Z89.422 Acquired absence of other left toe(s) | CPT/HCPCS: 97597 ==

== ENCOUNTER → 2017-04-29 | Outpatient (CLI) | payer MEDICARE, OTHER | END | disposition home or self-care (01) | LOC: PMGWOUND 08:23 | DX: E11.621 Type 2 diabetes mellitus with foot ulcer (principal); L97.521 Non-pressure chronic ulcer of other part of left foot limited to breakdown of skin; E11.39 Type 2 diabetes mellitus with other diabetic ophthalmic complication; H40.9 Unspecified glaucoma; E11.36 Type 2 diabetes mellitus with diabetic cataract; E11.319 Type 2 diabetes mellitus with unspecified diabetic retinopathy without macular edema; I25.10 Atherosclerotic heart disease of native coronary artery without angina pectoris; E11.42 Type 2 diabetes mellitus with diabetic polyneuropathy; E78.00 Pure hypercholesterolemia, unspecified; J44.9 Chronic obstructive pulmonary disease, unspecified; G47.30 Sleep apnea, unspecified; K21.9 Gastro-esophageal reflux disease without esophagitis; M19.90 Unspecified osteoarthritis, unspecified site; E11.52 Type 2 diabetes mellitus with diabetic peripheral angiopathy with gangrene; I96 Gangrene, not elsewhere classified; F32.9 Major depressive disorder, single episode, unspecified; F17.210 Nicotine dependence, cigarettes, uncomplicated; E11.22 Type 2 diabetes mellitus with diabetic chronic kidney disease; I13.2 Hypertensive heart and chronic kidney disease with heart failure and with stage 5 chronic kidney disease, or end stage renal disease; N18.6 End stage renal disease; I50.9 Heart failure, unspecified; J44.0 Chronic obstructive pulmonary disease with (acute) lower respiratory infection; J44.1 Chronic obstructive pulmonary disease with (acute) exacerbation; E21.3 Hyperparathyroidism, unspecified; E66.01 Morbid (severe) obesity due to excess calories; Z99.2 Dependence on renal dialysis; Z68.41 Body mass index [BMI] 40.0-44.9, adult; Z90.710 Acquired absence of both cervix and uterus; Z89.422 Acquired absence of other left toe(s); Z89.412 Acquired absence of left great toe; Z95.810 Presence of automatic (implantable) cardiac defibrillator | CPT/HCPCS: 97597 ==

== ENCOUNTER → 2017-05-13 | Outpatient (CLI) | payer MEDICARE, OTHER | END | disposition home or self-care (01) | LOC: PMGWOUND 09:49 | DX: E11.621 Type 2 diabetes mellitus with foot ulcer (principal); L97.523 Non-pressure chronic ulcer of other part of left foot with necrosis of muscle; E11.39 Type 2 diabetes mellitus with other diabetic ophthalmic complication; H40.9 Unspecified glaucoma; E11.36 Type 2 diabetes mellitus with diabetic cataract; E11.319 Type 2 diabetes mellitus with unspecified diabetic retinopathy without macular edema; I25.10 Atherosclerotic heart disease of native coronary artery without angina pectoris; E11.42 Type 2 diabetes mellitus with diabetic polyneuropathy; E78.00 Pure hypercholesterolemia, unspecified; J44.9 Chronic obstructive pulmonary disease, unspecified; G47.30 Sleep apnea, unspecified; K21.9 Gastro-esophageal reflux disease without esophagitis; M19.90 Unspecified osteoarthritis, unspecified site; E11.52 Type 2 diabetes mellitus with diabetic peripheral angiopathy with gangrene; I96 Gangrene, not elsewhere classified; F32.9 Major depressive disorder, single episode, unspecified; F17.210 Nicotine dependence, cigarettes, uncomplicated; E11.22 Type 2 diabetes mellitus with diabetic chronic kidney disease; I13.2 Hypertensive heart and chronic kidney disease with heart failure and with stage 5 chronic kidney disease, or end stage renal disease; N18.6 End stage renal disease; I50.9 Heart failure, unspecified; J44.0 Chronic obstructive pulmonary disease with (acute) lower respiratory infection; J44.1 Chronic obstructive pulmonary disease with (acute) exacerbation; E21.3 Hyperparathyroidism, unspecified; E66.01 Morbid (severe) obesity due to excess calories; Z99.2 Dependence on renal dialysis; Z68.41 Body mass index [BMI] 40.0-44.9, adult; Z90.710 Acquired absence of both cervix and uterus; Z89.422 Acquired absence of other left toe(s); Z89.412 Acquired absence of left great toe; Z95.810 Presence of automatic (implantable) cardiac defibrillator | CPT/HCPCS: 97597 ==

== ENCOUNTER → 2017-05-27 | Outpatient (CLI) | payer MEDICARE, OTHER | END | disposition home or self-care (01) | LOC: PMGWOUND 10:18 | DX: E11.621 Type 2 diabetes mellitus with foot ulcer (principal); L97.523 Non-pressure chronic ulcer of other part of left foot with necrosis of muscle; E11.39 Type 2 diabetes mellitus with other diabetic ophthalmic complication; H40.9 Unspecified glaucoma; E11.36 Type 2 diabetes mellitus with diabetic cataract; E11.319 Type 2 diabetes mellitus with unspecified diabetic retinopathy without macular edema; I25.10 Atherosclerotic heart disease of native coronary artery without angina pectoris; E11.42 Type 2 diabetes mellitus with diabetic polyneuropathy; E78.00 Pure hypercholesterolemia, unspecified; J44.9 Chronic obstructive pulmonary disease, unspecified; G47.30 Sleep apnea, unspecified; K21.9 Gastro-esophageal reflux disease without esophagitis; M19.90 Unspecified osteoarthritis, unspecified site; E11.52 Type 2 diabetes mellitus with diabetic peripheral angiopathy with gangrene; I96 Gangrene, not elsewhere classified; F32.9 Major depressive disorder, single episode, unspecified; F17.210 Nicotine dependence, cigarettes, uncomplicated; E11.22 Type 2 diabetes mellitus with diabetic chronic kidney disease; I13.2 Hypertensive heart and chronic kidney disease with heart failure and with stage 5 chronic kidney disease, or end stage renal disease; N18.6 End stage renal disease; I50.9 Heart failure, unspecified; J44.0 Chronic obstructive pulmonary disease with (acute) lower respiratory infection; J44.1 Chronic obstructive pulmonary disease with (acute) exacerbation; E21.3 Hyperparathyroidism, unspecified; E66.01 Morbid (severe) obesity due to excess calories; Z99.2 Dependence on renal dialysis; Z68.41 Body mass index [BMI] 40.0-44.9, adult; Z90.710 Acquired absence of both cervix and uterus; Z89.422 Acquired absence of other left toe(s); Z89.412 Acquired absence of left great toe; Z95.810 Presence of automatic (implantable) cardiac defibrillator | CPT/HCPCS: 73630; 97597 ==

== ENCOUNTER → 2017-06-03 | Outpatient (CLI) | payer MEDICARE, OTHER | END | disposition home or self-care (01) | LOC: PMGWOUND 10:21 | DX: T87.89 Other complications of amputation stump (principal); E11.621 Type 2 diabetes mellitus with foot ulcer; L97.523 Non-pressure chronic ulcer of other part of left foot with necrosis of muscle; E11.39 Type 2 diabetes mellitus with other diabetic ophthalmic complication; H40.9 Unspecified glaucoma; E11.36 Type 2 diabetes mellitus with diabetic cataract; E11.319 Type 2 diabetes mellitus with unspecified diabetic retinopathy without macular edema; I25.10 Atherosclerotic heart disease of native coronary artery without angina pectoris; E11.42 Type 2 diabetes mellitus with diabetic polyneuropathy; E78.00 Pure hypercholesterolemia, unspecified; J44.9 Chronic obstructive pulmonary disease, unspecified; G47.30 Sleep apnea, unspecified; K21.9 Gastro-esophageal reflux disease without esophagitis; M19.90 Unspecified osteoarthritis, unspecified site; E11.52 Type 2 diabetes mellitus with diabetic peripheral angiopathy with gangrene; I96 Gangrene, not elsewhere classified; F32.9 Major depressive disorder, single episode, unspecified; F17.210 Nicotine dependence, cigarettes, uncomplicated; E11.22 Type 2 diabetes mellitus with diabetic chronic kidney disease; I13.2 Hypertensive heart and chronic kidney disease with heart failure and with stage 5 chronic kidney disease, or end stage renal disease; N18.6 End stage renal disease; I50.9 Heart failure, unspecified; J44.0 Chronic obstructive pulmonary disease with (acute) lower respiratory infection; J44.1 Chronic obstructive pulmonary disease with (acute) exacerbation; E21.3 Hyperparathyroidism, unspecified; E66.01 Morbid (severe) obesity due to excess calories; Z99.2 Dependence on renal dialysis; Z68.41 Body mass index [BMI] 40.0-44.9, adult; Z90.710 Acquired absence of both cervix and uterus; Z89.422 Acquired absence of other left toe(s); Z89.412 Acquired absence of left great toe; Z95.810 Presence of automatic (implantable) cardiac defibrillator; Y83.5 Amputation of limb(s) as the cause of abnormal reaction of the patient, or of later complication, without mention of misadventure at the time of the procedure | CPT/HCPCS: 97597; 97605 ==

== ENCOUNTER → 2017-06-10 | Outpatient (CLI) | payer MEDICARE, OTHER | END | disposition home or self-care (01) | LOC: PMGWOUND 09:58 | DX: T87.89 Other complications of amputation stump (principal); E11.621 Type 2 diabetes mellitus with foot ulcer; L97.523 Non-pressure chronic ulcer of other part of left foot with necrosis of muscle; E11.39 Type 2 diabetes mellitus with other diabetic ophthalmic complication; H40.9 Unspecified glaucoma; E11.36 Type 2 diabetes mellitus with diabetic cataract; E11.319 Type 2 diabetes mellitus with unspecified diabetic retinopathy without macular edema; I25.10 Atherosclerotic heart disease of native coronary artery without angina pectoris; E11.42 Type 2 diabetes mellitus with diabetic polyneuropathy; E78.00 Pure hypercholesterolemia, unspecified; J44.9 Chronic obstructive pulmonary disease, unspecified; G47.30 Sleep apnea, unspecified; K21.9 Gastro-esophageal reflux disease without esophagitis; M19.90 Unspecified osteoarthritis, unspecified site; E11.52 Type 2 diabetes mellitus with diabetic peripheral angiopathy with gangrene; I96 Gangrene, not elsewhere classified; F32.9 Major depressive disorder, single episode, unspecified; F17.210 Nicotine dependence, cigarettes, uncomplicated; E11.22 Type 2 diabetes mellitus with diabetic chronic kidney disease; I13.2 Hypertensive heart and chronic kidney disease with heart failure and with stage 5 chronic kidney disease, or end stage renal disease; N18.6 End stage renal disease; I50.9 Heart failure, unspecified; J44.0 Chronic obstructive pulmonary disease with (acute) lower respiratory infection; J44.1 Chronic obstructive pulmonary disease with (acute) exacerbation; E21.3 Hyperparathyroidism, unspecified; E66.01 Morbid (severe) obesity due to excess calories; Z99.2 Dependence on renal dialysis; Z68.41 Body mass index [BMI] 40.0-44.9, adult; Z90.710 Acquired absence of both cervix and uterus; Z89.422 Acquired absence of other left toe(s); Z89.412 Acquired absence of left great toe; Z95.810 Presence of automatic (implantable) cardiac defibrillator; Y83.5 Amputation of limb(s) as the cause of abnormal reaction of the patient, or of later complication, without mention of misadventure at the time of the procedure | CPT/HCPCS: 11042; 97605 ==

== ENCOUNTER → 2017-06-17 | Outpatient (CLI) | payer MEDICARE, OTHER | END | disposition home or self-care (01) | LOC: PMGWOUND 10:00 | DX: T87.81 Dehiscence of amputation stump (principal); E11.621 Type 2 diabetes mellitus with foot ulcer; L97.523 Non-pressure chronic ulcer of other part of left foot with necrosis of muscle; E11.39 Type 2 diabetes mellitus with other diabetic ophthalmic complication; H40.9 Unspecified glaucoma; E11.36 Type 2 diabetes mellitus with diabetic cataract; E11.319 Type 2 diabetes mellitus with unspecified diabetic retinopathy without macular edema; I25.10 Atherosclerotic heart disease of native coronary artery without angina pectoris; E11.42 Type 2 diabetes mellitus with diabetic polyneuropathy; E78.00 Pure hypercholesterolemia, unspecified; J44.9 Chronic obstructive pulmonary disease, unspecified; G47.30 Sleep apnea, unspecified; K21.9 Gastro-esophageal reflux disease without esophagitis; M19.90 Unspecified osteoarthritis, unspecified site; E11.52 Type 2 diabetes mellitus with diabetic peripheral angiopathy with gangrene; I96 Gangrene, not elsewhere classified; F32.9 Major depressive disorder, single episode, unspecified; F17.210 Nicotine dependence, cigarettes, uncomplicated; E11.22 Type 2 diabetes mellitus with diabetic chronic kidney disease; I13.2 Hypertensive heart and chronic kidney disease with heart failure and with stage 5 chronic kidney disease, or end stage renal disease; N18.6 End stage renal disease; I50.9 Heart failure, unspecified; J44.0 Chronic obstructive pulmonary disease with (acute) lower respiratory infection; J44.1 Chronic obstructive pulmonary disease with (acute) exacerbation; E21.3 Hyperparathyroidism, unspecified; E66.01 Morbid (severe) obesity due to excess calories; Z99.2 Dependence on renal dialysis; Z68.41 Body mass index [BMI] 40.0-44.9, adult; Z90.710 Acquired absence of both cervix and uterus; Z89.422 Acquired absence of other left toe(s); Z89.412 Acquired absence of left great toe; Z95.810 Presence of automatic (implantable) cardiac defibrillator; Y83.5 Amputation of limb(s) as the cause of abnormal reaction of the patient, or of later complication, without mention of misadventure at the time of the procedure | CPT/HCPCS: 11042; 97605 ==

== ENCOUNTER → 2017-06-24 | Outpatient (CLI) | payer MEDICARE, OTHER | END | disposition home or self-care (01) | LOC: PMGWOUND 11:13 | DX: E11.621 Type 2 diabetes mellitus with foot ulcer (principal); L97.523 Non-pressure chronic ulcer of other part of left foot with necrosis of muscle; E11.36 Type 2 diabetes mellitus with diabetic cataract; E11.319 Type 2 diabetes mellitus with unspecified diabetic retinopathy without macular edema; I25.10 Atherosclerotic heart disease of native coronary artery without angina pectoris; E11.42 Type 2 diabetes mellitus with diabetic polyneuropathy; E78.00 Pure hypercholesterolemia, unspecified; J43.9 Emphysema, unspecified; K21.9 Gastro-esophageal reflux disease without esophagitis; M19.90 Unspecified osteoarthritis, unspecified site; F32.9 Major depressive disorder, single episode, unspecified; F17.210 Nicotine dependence, cigarettes, uncomplicated; E11.52 Type 2 diabetes mellitus with diabetic peripheral angiopathy with gangrene; E11.22 Type 2 diabetes mellitus with diabetic chronic kidney disease; I13.2 Hypertensive heart and chronic kidney disease with heart failure and with stage 5 chronic kidney disease, or end stage renal disease; I50.22 Chronic systolic (congestive) heart failure; N18.6 End stage renal disease; E11.39 Type 2 diabetes mellitus with other diabetic ophthalmic complication; H40.9 Unspecified glaucoma; E66.01 Morbid (severe) obesity due to excess calories; Z68.41 Body mass index [BMI] 40.0-44.9, adult; Z89.412 Acquired absence of left great toe; Z99.2 Dependence on renal dialysis; Z95.0 Presence of cardiac pacemaker | CPT/HCPCS: 97597; 97605 ==

== ENCOUNTER → 2017-07-01 | Outpatient (CLI) | payer MEDICARE, OTHER | END | disposition home or self-care (01) | LOC: PMGWOUND 09:46 | DX: T87.81 Dehiscence of amputation stump (principal); E11.621 Type 2 diabetes mellitus with foot ulcer; L97.523 Non-pressure chronic ulcer of other part of left foot with necrosis of muscle; E11.39 Type 2 diabetes mellitus with other diabetic ophthalmic complication; H40.9 Unspecified glaucoma; E11.36 Type 2 diabetes mellitus with diabetic cataract; E11.319 Type 2 diabetes mellitus with unspecified diabetic retinopathy without macular edema; E11.42 Type 2 diabetes mellitus with diabetic polyneuropathy; E11.52 Type 2 diabetes mellitus with diabetic peripheral angiopathy with gangrene; I96 Gangrene, not elsewhere classified; E11.22 Type 2 diabetes mellitus with diabetic chronic kidney disease; I13.2 Hypertensive heart and chronic kidney disease with heart failure and with stage 5 chronic kidney disease, or end stage renal disease; N18.6 End stage renal disease; I50.9 Heart failure, unspecified; J44.0 Chronic obstructive pulmonary disease with (acute) lower respiratory infection; J44.1 Chronic obstructive pulmonary disease with (acute) exacerbation; I25.10 Atherosclerotic heart disease of native coronary artery without angina pectoris; E78.00 Pure hypercholesterolemia, unspecified; J44.9 Chronic obstructive pulmonary disease, unspecified; G47.30 Sleep apnea, unspecified; K21.9 Gastro-esophageal reflux disease without esophagitis; M19.90 Unspecified osteoarthritis, unspecified site; F32.9 Major depressive disorder, single episode, unspecified; F17.210 Nicotine dependence, cigarettes, uncomplicated; E21.3 Hyperparathyroidism, unspecified; E66.01 Morbid (severe) obesity due to excess calories; Z99.2 Dependence on renal dialysis; Z68.41 Body mass index [BMI] 40.0-44.9, adult; Z90.710 Acquired absence of both cervix and uterus; Z89.422 Acquired absence of other left toe(s); Z89.412 Acquired absence of left great toe; Z90.5 Acquired absence of kidney; Z95.810 Presence of automatic (implantable) cardiac defibrillator; Y83.5 Amputation of limb(s) as the cause of abnormal reaction of the patient, or of later complication, without mention of misadventure at the time of the procedure | CPT/HCPCS: 11042 ==

== ENCOUNTER → 2017-07-08 | Outpatient (CLI) | payer MEDICARE, OTHER | END | disposition home or self-care (01) | LOC: PMGWOUND 09:50 | DX: T87.81 Dehiscence of amputation stump (principal); E11.621 Type 2 diabetes mellitus with foot ulcer; L97.523 Non-pressure chronic ulcer of other part of left foot with necrosis of muscle; E11.39 Type 2 diabetes mellitus with other diabetic ophthalmic complication; H40.9 Unspecified glaucoma; E11.36 Type 2 diabetes mellitus with diabetic cataract; E11.319 Type 2 diabetes mellitus with unspecified diabetic retinopathy without macular edema; E11.42 Type 2 diabetes mellitus with diabetic polyneuropathy; E11.52 Type 2 diabetes mellitus with diabetic peripheral angiopathy with gangrene; I96 Gangrene, not elsewhere classified; E11.22 Type 2 diabetes mellitus with diabetic chronic kidney disease; I13.2 Hypertensive heart and chronic kidney disease with heart failure and with stage 5 chronic kidney disease, or end stage renal disease; N18.6 End stage renal disease; I50.9 Heart failure, unspecified; J44.1 Chronic obstructive pulmonary disease with (acute) exacerbation; J44.0 Chronic obstructive pulmonary disease with (acute) lower respiratory infection; I25.10 Atherosclerotic heart disease of native coronary artery without angina pectoris; E78.00 Pure hypercholesterolemia, unspecified; G47.30 Sleep apnea, unspecified; K21.9 Gastro-esophageal reflux disease without esophagitis; M19.90 Unspecified osteoarthritis, unspecified site; F32.9 Major depressive disorder, single episode, unspecified; F17.210 Nicotine dependence, cigarettes, uncomplicated; E21.3 Hyperparathyroidism, unspecified; E66.01 Morbid (severe) obesity due to excess calories; Z99.2 Dependence on renal dialysis; Z68.41 Body mass index [BMI] 40.0-44.9, adult; Z90.710 Acquired absence of both cervix and uterus; Z89.422 Acquired absence of other left toe(s); Z89.412 Acquired absence of left great toe; Z90.5 Acquired absence of kidney; Z95.810 Presence of automatic (implantable) cardiac defibrillator; Y83.5 Amputation of limb(s) as the cause of abnormal reaction of the patient, or of later complication, without mention of misadventure at the time of the procedure | CPT/HCPCS: 11042 ==

== ENCOUNTER → 2017-07-15 | Outpatient (CLI) | payer MEDICARE, OTHER | END | disposition home or self-care (01) | LOC: PMGWOUND 09:35 | DX: T87.89 Other complications of amputation stump (principal); E11.621 Type 2 diabetes mellitus with foot ulcer; L97.523 Non-pressure chronic ulcer of other part of left foot with necrosis of muscle; E11.36 Type 2 diabetes mellitus with diabetic cataract; E11.39 Type 2 diabetes mellitus with other diabetic ophthalmic complication; H40.9 Unspecified glaucoma; I25.10 Atherosclerotic heart disease of native coronary artery without angina pectoris; E11.22 Type 2 diabetes mellitus with diabetic chronic kidney disease; I13.2 Hypertensive heart and chronic kidney disease with heart failure and with stage 5 chronic kidney disease, or end stage renal disease; I50.22 Chronic systolic (congestive) heart failure; N18.6 End stage renal disease; E11.52 Type 2 diabetes mellitus with diabetic peripheral angiopathy with gangrene; I96 Gangrene, not elsewhere classified; E21.3 Hyperparathyroidism, unspecified; E11.319 Type 2 diabetes mellitus with unspecified diabetic retinopathy without macular edema; E11.42 Type 2 diabetes mellitus with diabetic polyneuropathy; E66.01 Morbid (severe) obesity due to excess calories; E78.00 Pure hypercholesterolemia, unspecified; G47.30 Sleep apnea, unspecified; G89.29 Other chronic pain; J43.9 Emphysema, unspecified; K21.9 Gastro-esophageal reflux disease without esophagitis; M19.90 Unspecified osteoarthritis, unspecified site; F32.9 Major depressive disorder, single episode, unspecified; F17.210 Nicotine dependence, cigarettes, uncomplicated; Z99.2 Dependence on renal dialysis; Z90.710 Acquired absence of both cervix and uterus; Z89.422 Acquired absence of other left toe(s); Z68.41 Body mass index [BMI] 40.0-44.9, adult; Z79.82 Long term (current) use of aspirin; Z79.84 Long term (current) use of oral hypoglycemic drugs; Z79.899 Other long term (current) drug therapy; Y83.5 Amputation of limb(s) as the cause of abnormal reaction of the patient, or of later complication, without mention of misadventure at the time of the procedure | CPT/HCPCS: 11042; 97605 ==

== ENCOUNTER → 2017-07-22 | Outpatient (CLI) | payer MEDICARE, OTHER | END | disposition home or self-care (01) | LOC: PMGWOUND 09:46 | DX: T87.81 Dehiscence of amputation stump (principal); E11.621 Type 2 diabetes mellitus with foot ulcer; L97.523 Non-pressure chronic ulcer of other part of left foot with necrosis of muscle; E11.39 Type 2 diabetes mellitus with other diabetic ophthalmic complication; H40.9 Unspecified glaucoma; E11.36 Type 2 diabetes mellitus with diabetic cataract; E11.319 Type 2 diabetes mellitus with unspecified diabetic retinopathy without macular edema; E11.42 Type 2 diabetes mellitus with diabetic polyneuropathy; E11.52 Type 2 diabetes mellitus with diabetic peripheral angiopathy with gangrene; I96 Gangrene, not elsewhere classified; E11.22 Type 2 diabetes mellitus with diabetic chronic kidney disease; I13.2 Hypertensive heart and chronic kidney disease with heart failure and with stage 5 chronic kidney disease, or end stage renal disease; N18.6 End stage renal disease; I50.9 Heart failure, unspecified; J44.1 Chronic obstructive pulmonary disease with (acute) exacerbation; J44.0 Chronic obstructive pulmonary disease with (acute) lower respiratory infection; I25.10 Atherosclerotic heart disease of native coronary artery without angina pectoris; E78.00 Pure hypercholesterolemia, unspecified; G47.30 Sleep apnea, unspecified; K21.9 Gastro-esophageal reflux disease without esophagitis; M19.90 Unspecified osteoarthritis, unspecified site; F32.9 Major depressive disorder, single episode, unspecified; F17.210 Nicotine dependence, cigarettes, uncomplicated; E21.3 Hyperparathyroidism, unspecified; E66.01 Morbid (severe) obesity due to excess calories; Z99.2 Dependence on renal dialysis; Z68.41 Body mass index [BMI] 40.0-44.9, adult; Z90.710 Acquired absence of both cervix and uterus; Z89.422 Acquired absence of other left toe(s); Z89.412 Acquired absence of left great toe; Z90.5 Acquired absence of kidney; Z79.82 Long term (current) use of aspirin; Z95.810 Presence of automatic (implantable) cardiac defibrillator; Y83.5 Amputation of limb(s) as the cause of abnormal reaction of the patient, or of later complication, without mention of misadventure at the time of the procedure | CPT/HCPCS: 11042; 97597 ==

== ENCOUNTER → 2017-07-29 | Outpatient (CLI) | payer MEDICARE, OTHER | END | disposition home or self-care (01) | LOC: PMGWOUND 09:40 | DX: T87.81 Dehiscence of amputation stump (principal); E11.621 Type 2 diabetes mellitus with foot ulcer; L97.523 Non-pressure chronic ulcer of other part of left foot with necrosis of muscle; E11.39 Type 2 diabetes mellitus with other diabetic ophthalmic complication; H40.9 Unspecified glaucoma; E11.36 Type 2 diabetes mellitus with diabetic cataract; E11.319 Type 2 diabetes mellitus with unspecified diabetic retinopathy without macular edema; E11.42 Type 2 diabetes mellitus with diabetic polyneuropathy; E11.52 Type 2 diabetes mellitus with diabetic peripheral angiopathy with gangrene; I96 Gangrene, not elsewhere classified; E11.22 Type 2 diabetes mellitus with diabetic chronic kidney disease; I13.2 Hypertensive heart and chronic kidney disease with heart failure and with stage 5 chronic kidney disease, or end stage renal disease; N18.6 End stage renal disease; I50.9 Heart failure, unspecified; J44.1 Chronic obstructive pulmonary disease with (acute) exacerbation; J44.0 Chronic obstructive pulmonary disease with (acute) lower respiratory infection; I25.10 Atherosclerotic heart disease of native coronary artery without angina pectoris; L84 Corns and callosities; E78.00 Pure hypercholesterolemia, unspecified; G47.30 Sleep apnea, unspecified; K21.9 Gastro-esophageal reflux disease without esophagitis; M19.90 Unspecified osteoarthritis, unspecified site; F32.9 Major depressive disorder, single episode, unspecified; F17.210 Nicotine dependence, cigarettes, uncomplicated; E21.3 Hyperparathyroidism, unspecified; E66.01 Morbid (severe) obesity due to excess calories; Z99.2 Dependence on renal dialysis; Z68.41 Body mass index [BMI] 40.0-44.9, adult; Z90.710 Acquired absence of both cervix and uterus; Z89.422 Acquired absence of other left toe(s); Z89.412 Acquired absence of left great toe; Z90.5 Acquired absence of kidney; Z79.82 Long term (current) use of aspirin; Z95.810 Presence of automatic (implantable) cardiac defibrillator; Y83.5 Amputation of limb(s) as the cause of abnormal reaction of the patient, or of later complication, without mention of misadventure at the time of the procedure | CPT/HCPCS: 11042; 97597 ==

== ENCOUNTER → 2017-08-05 | Outpatient (CLI) | payer MEDICARE, OTHER | END | disposition home or self-care (01) | LOC: PMGWOUND 09:58 | DX: T87.89 Other complications of amputation stump (principal); E11.621 Type 2 diabetes mellitus with foot ulcer; L97.523 Non-pressure chronic ulcer of other part of left foot with necrosis of muscle; J43.9 Emphysema, unspecified; E11.22 Type 2 diabetes mellitus with diabetic chronic kidney disease; I13.2 Hypertensive heart and chronic kidney disease with heart failure and with stage 5 chronic kidney disease, or end stage renal disease; N18.6 End stage renal disease; I50.22 Chronic systolic (congestive) heart failure; K21.9 Gastro-esophageal reflux disease without esophagitis; E21.3 Hyperparathyroidism, unspecified; F32.9 Major depressive disorder, single episode, unspecified; E66.01 Morbid (severe) obesity due to excess calories; G89.29 Other chronic pain; E78.00 Pure hypercholesterolemia, unspecified; G47.30 Sleep apnea, unspecified; Z95.810 Presence of automatic (implantable) cardiac defibrillator; E11.36 Type 2 diabetes mellitus with diabetic cataract; E11.42 Type 2 diabetes mellitus with diabetic polyneuropathy; E11.52 Type 2 diabetes mellitus with diabetic peripheral angiopathy with gangrene; I96 Gangrene, not elsewhere classified; E11.319 Type 2 diabetes mellitus with unspecified diabetic retinopathy without macular edema; E11.39 Type 2 diabetes mellitus with other diabetic ophthalmic complication; H40.9 Unspecified glaucoma; M19.90 Unspecified osteoarthritis, unspecified site; F17.210 Nicotine dependence, cigarettes, uncomplicated; Z90.710 Acquired absence of both cervix and uterus; Z85.3 Personal history of malignant neoplasm of breast; Z99.2 Dependence on renal dialysis; Z79.4 Long term (current) use of insulin; Z79.01 Long term (current) use of anticoagulants; Z68.41 Body mass index [BMI] 40.0-44.9, adult; Y83.5 Amputation of limb(s) as the cause of abnormal reaction of the patient, or of later complication, without mention of misadventure at the time of the procedure | CPT/HCPCS: 11042 ==

== ENCOUNTER → 2017-08-12 | Outpatient (CLI) | payer MEDICARE, OTHER | END | disposition home or self-care (01) | LOC: PMGWOUND 09:59 | DX: T87.81 Dehiscence of amputation stump (principal); E11.621 Type 2 diabetes mellitus with foot ulcer; L97.523 Non-pressure chronic ulcer of other part of left foot with necrosis of muscle; E11.39 Type 2 diabetes mellitus with other diabetic ophthalmic complication; H40.9 Unspecified glaucoma; E11.36 Type 2 diabetes mellitus with diabetic cataract; E11.319 Type 2 diabetes mellitus with unspecified diabetic retinopathy without macular edema; E11.42 Type 2 diabetes mellitus with diabetic polyneuropathy; E11.52 Type 2 diabetes mellitus with diabetic peripheral angiopathy with gangrene; I96 Gangrene, not elsewhere classified; E11.22 Type 2 diabetes mellitus with diabetic chronic kidney disease; I13.2 Hypertensive heart and chronic kidney disease with heart failure and with stage 5 chronic kidney disease, or end stage renal disease; N18.6 End stage renal disease; I50.9 Heart failure, unspecified; J44.1 Chronic obstructive pulmonary disease with (acute) exacerbation; J44.0 Chronic obstructive pulmonary disease with (acute) lower respiratory infection; I25.10 Atherosclerotic heart disease of native coronary artery without angina pectoris; L84 Corns and callosities; E78.00 Pure hypercholesterolemia, unspecified; G47.30 Sleep apnea, unspecified; K21.9 Gastro-esophageal reflux disease without esophagitis; M19.90 Unspecified osteoarthritis, unspecified site; F32.9 Major depressive disorder, single episode, unspecified; F17.210 Nicotine dependence, cigarettes, uncomplicated; E21.3 Hyperparathyroidism, unspecified; E66.01 Morbid (severe) obesity due to excess calories; Z99.2 Dependence on renal dialysis; Z68.41 Body mass index [BMI] 40.0-44.9, adult; Z90.710 Acquired absence of both cervix and uterus; Z89.422 Acquired absence of other left toe(s); Z89.412 Acquired absence of left great toe; Z90.5 Acquired absence of kidney; Z79.82 Long term (current) use of aspirin; Z95.810 Presence of automatic (implantable) cardiac defibrillator; Y83.5 Amputation of limb(s) as the cause of abnormal reaction of the patient, or of later complication, without mention of misadventure at the time of the procedure | CPT/HCPCS: 11042; 97605 ==

== ENCOUNTER → 2017-08-19 | Outpatient (CLI) | payer MEDICARE, OTHER | END | disposition home or self-care (01) | LOC: PMGWOUND 09:20 | DX: T87.81 Dehiscence of amputation stump (principal); E11.621 Type 2 diabetes mellitus with foot ulcer; L97.523 Non-pressure chronic ulcer of other part of left foot with necrosis of muscle; E11.39 Type 2 diabetes mellitus with other diabetic ophthalmic complication; H40.9 Unspecified glaucoma; E11.36 Type 2 diabetes mellitus with diabetic cataract; E11.319 Type 2 diabetes mellitus with unspecified diabetic retinopathy without macular edema; E11.42 Type 2 diabetes mellitus with diabetic polyneuropathy; E11.52 Type 2 diabetes mellitus with diabetic peripheral angiopathy with gangrene; I96 Gangrene, not elsewhere classified; E11.22 Type 2 diabetes mellitus with diabetic chronic kidney disease; I13.2 Hypertensive heart and chronic kidney disease with heart failure and with stage 5 chronic kidney disease, or end stage renal disease; N18.6 End stage renal disease; I50.9 Heart failure, unspecified; J44.1 Chronic obstructive pulmonary disease with (acute) exacerbation; J44.0 Chronic obstructive pulmonary disease with (acute) lower respiratory infection; I25.10 Atherosclerotic heart disease of native coronary artery without angina pectoris; L84 Corns and callosities; E78.00 Pure hypercholesterolemia, unspecified; G47.30 Sleep apnea, unspecified; K21.9 Gastro-esophageal reflux disease without esophagitis; M19.90 Unspecified osteoarthritis, unspecified site; F32.9 Major depressive disorder, single episode, unspecified; F17.210 Nicotine dependence, cigarettes, uncomplicated; E21.3 Hyperparathyroidism, unspecified; E66.01 Morbid (severe) obesity due to excess calories; Z99.2 Dependence on renal dialysis; Z68.41 Body mass index [BMI] 40.0-44.9, adult; Z90.710 Acquired absence of both cervix and uterus; Z89.422 Acquired absence of other left toe(s); Z89.412 Acquired absence of left great toe; Z90.5 Acquired absence of kidney; Z79.82 Long term (current) use of aspirin; Z95.810 Presence of automatic (implantable) cardiac defibrillator; Y83.5 Amputation of limb(s) as the cause of abnormal reaction of the patient, or of later complication, without mention of misadventure at the time of the procedure | CPT/HCPCS: 11042; 97605 ==

== ENCOUNTER → 2017-08-26 | Outpatient (CLI) | payer MEDICARE, OTHER | END | disposition home or self-care (01) | LOC: PMGWOUND 10:39 | DX: T87.89 Other complications of amputation stump (principal); E11.621 Type 2 diabetes mellitus with foot ulcer; L97.523 Non-pressure chronic ulcer of other part of left foot with necrosis of muscle; I25.10 Atherosclerotic heart disease of native coronary artery without angina pectoris; E11.52 Type 2 diabetes mellitus with diabetic peripheral angiopathy with gangrene; I96 Gangrene, not elsewhere classified; E11.22 Type 2 diabetes mellitus with diabetic chronic kidney disease; I13.2 Hypertensive heart and chronic kidney disease with heart failure and with stage 5 chronic kidney disease, or end stage renal disease; N18.6 End stage renal disease; I50.22 Chronic systolic (congestive) heart failure; E21.3 Hyperparathyroidism, unspecified; F32.9 Major depressive disorder, single episode, unspecified; E66.01 Morbid (severe) obesity due to excess calories; E78.00 Pure hypercholesterolemia, unspecified; G47.30 Sleep apnea, unspecified; E11.36 Type 2 diabetes mellitus with diabetic cataract; E11.42 Type 2 diabetes mellitus with diabetic polyneuropathy; F17.210 Nicotine dependence, cigarettes, uncomplicated; E11.39 Type 2 diabetes mellitus with other diabetic ophthalmic complication; H40.9 Unspecified glaucoma; E11.319 Type 2 diabetes mellitus with unspecified diabetic retinopathy without macular edema; M19.90 Unspecified osteoarthritis, unspecified site; J43.9 Emphysema, unspecified; G89.29 Other chronic pain; Z79.4 Long term (current) use of insulin; Z90.710 Acquired absence of both cervix and uterus; Z99.2 Dependence on renal dialysis; Z68.41 Body mass index [BMI] 40.0-44.9, adult; Y83.5 Amputation of limb(s) as the cause of abnormal reaction of the patient, or of later complication, without mention of misadventure at the time of the procedure | CPT/HCPCS: 11042; 97605 ==

== ENCOUNTER 2017-08-28 07:45 | Outpatient (CLI) | payer MEDICARE, OTHER ==
[2017-08-28 08:43] LABS: ADD MAN DIFF? NO
[2017-08-28 08:47] LABS: BASO % 1 % (0-3); EOS # 0.2 x10^3/uL (0.0-0.7); EOS % 4 % (0-3); HEMATOCRIT 34.2 % (36.0-47.0); HEMOGLOBIN 11.3 g/dL (12.0-15.5); LYMPH # 1.2 x10^3/uL (1.0-4.8); LYMPH % 21 % (24-48); MEAN CORPUSCULAR HEMOGLOBIN 33 pg (25-35); MEAN CORPUSCULAR HGB CONC 33 g/dL (31-37); MEAN CORPUSCULAR VOLUME 100 fL (79-100); MONO # 0.3 x10^3/uL (0.0-1.1); MONO % 6 % (0-9); NEUT # 3.8 x10^3uL (1.8-7.7); NEUT % 68 % (31-73); PLATELET COUNT 111 x10^3/uL (140-400); RED CELL DISTRIBUTION WIDTH 18.5 % (11.5-14.5); WHITE BLOOD COUNT 5.6 x10^3/uL (4.0-11.0)
[2017-08-28 08:51] LABS: ANION GAP 7 (6-14); BLOOD UREA NITROGEN 45 mg/dL (7-20); CALCIUM 8.9 mg/dL (8.5-10.1); CARBON DIOXIDE 32 mmol/L (21-32); CHLORIDE 102 mmol/L (98-107); GFR 11.6; GLUCOSE 141 mg/dL (70-99); POTASSIUM 4.3 mmol/L (3.5-5.1); SODIUM 141 mmol/L (136-145)
[2017-08-28 08:59] LABS: INR 1.3 (0.8-1.1); PARTIAL THROMBOPLASTIN TIME 35 SEC (24-38); PROTHROMBIN TIME PATIENT 15.5 SEC (11.7-14.0)
[2017-08-28] MEDS ORDERED: IODIXANOL 320 MG/ML 100 ML VIAL. ×2 (09:34→09:35)
[2017-08-28] MEDS ORDERED: HEPARIN for ARTERIAL LINE 1,500 ML (09:35)
[2017-08-28] MEDS ORDERED: LIDOCAINE WITH 8.4% SOD BICARB 3 ML DISP.SYRIN. (09:35)
[2017-08-28] MEDS ORDERED: IODIXANOL 320MG/ML 50ML VIAL. (09:35)
[2017-08-28] MEDS ORDERED: fentaNYL PF VIAL 100 MCG/2 ML VIAL (09:53)
[2017-08-28] MEDS ORDERED: MIDAZOLAM HCL/PF 5 MG/5 ML VIAL. (09:53)
[2017-08-28] MEDS: IODIXANOL 320 MG/ML 100 ML VIAL. IART (10:58)
[2017-08-28] MEDS: LIDOCAINE WITH 8.4% SOD BICARB 3 ML DISP.SYRIN. IJ (10:58)
[2017-08-28] MEDS: fentaNYL PF VIAL 100 MCG/2 ML VIAL IV (10:59)
[2017-08-28] MEDS: MIDAZOLAM HCL/PF 5 MG/5 ML VIAL. IV (10:59)
[2017-08-28] MEDS: IODIXANOL 320MG/ML 50ML VIAL. IART (10:59)
== END 2017-08-28 14:20 | disposition home or self-care (01) ==
LOC: INTRAD 07:45
DX: I70.292 Other atherosclerosis of native arteries of extremities, left leg (principal); I13.2 Hypertensive heart and chronic kidney disease with heart failure and with stage 5 chronic kidney disease, or end stage renal disease; E11.22 Type 2 diabetes mellitus with diabetic chronic kidney disease; N18.6 End stage renal disease; I50.9 Heart failure, unspecified; Z99.2 Dependence on renal dialysis; J43.9 Emphysema, unspecified; I25.10 Atherosclerotic heart disease of native coronary artery without angina pectoris; E78.00 Pure hypercholesterolemia, unspecified; F32.9 Major depressive disorder, single episode, unspecified; F17.210 Nicotine dependence, cigarettes, uncomplicated; E11.39 Type 2 diabetes mellitus with other diabetic ophthalmic complication; E11.42 Type 2 diabetes mellitus with diabetic polyneuropathy; E11.319 Type 2 diabetes mellitus with unspecified diabetic retinopathy without macular edema; E11.621 Type 2 diabetes mellitus with foot ulcer; L97.524 Non-pressure chronic ulcer of other part of left foot with necrosis of bone; E66.9 Obesity, unspecified; Z68.41 Body mass index [BMI] 40.0-44.9, adult; Z89.412 Acquired absence of left great toe; Z88.8 Allergy status to other drugs, medicaments and biological substances; Z91.030 Bee allergy status; Z88.1 Allergy status to other antibiotic agents; Z79.84 Long term (current) use of oral hypoglycemic drugs; Z98.42 Cataract extraction status, left eye; Z98.41 Cataract extraction status, right eye; Z96.1 Presence of intraocular lens; K21.9 Gastro-esophageal reflux disease without esophagitis; Z87.440 Personal history of urinary (tract) infections; Z90.5 Acquired absence of kidney; M19.90 Unspecified osteoarthritis, unspecified site; Z86.19 Personal history of other infectious and parasitic diseases; Z98.890 Other specified postprocedural states; Z86.14 Personal history of Methicillin resistant Staphylococcus aureus infection; Z85.3 Personal history of malignant neoplasm of breast; Z79.01 Long term (current) use of anticoagulants
CPT/HCPCS: 36246; 36247; 36415; 75625; 75710; 76937; 80048; 85025; 85610; 85730; 99152; 99153; C1760; C1769; C1892; C1894; J1644; J2250; J3010

== ENCOUNTER → 2017-09-09 | Outpatient (CLI) | payer MEDICARE, OTHER | END | disposition home or self-care (01) | LOC: PMGWOUND 09:53 | DX: T87.81 Dehiscence of amputation stump (principal); E11.621 Type 2 diabetes mellitus with foot ulcer; L97.523 Non-pressure chronic ulcer of other part of left foot with necrosis of muscle; E11.36 Type 2 diabetes mellitus with diabetic cataract; E11.319 Type 2 diabetes mellitus with unspecified diabetic retinopathy without macular edema; I25.10 Atherosclerotic heart disease of native coronary artery without angina pectoris; E11.42 Type 2 diabetes mellitus with diabetic polyneuropathy; E11.22 Type 2 diabetes mellitus with diabetic chronic kidney disease; I13.2 Hypertensive heart and chronic kidney disease with heart failure and with stage 5 chronic kidney disease, or end stage renal disease; N18.6 End stage renal disease; I50.22 Chronic systolic (congestive) heart failure; J43.9 Emphysema, unspecified; K21.9 Gastro-esophageal reflux disease without esophagitis; F32.9 Major depressive disorder, single episode, unspecified; E78.00 Pure hypercholesterolemia, unspecified; M19.90 Unspecified osteoarthritis, unspecified site; E11.39 Type 2 diabetes mellitus with other diabetic ophthalmic complication; H40.9 Unspecified glaucoma; E11.52 Type 2 diabetes mellitus with diabetic peripheral angiopathy with gangrene; I96 Gangrene, not elsewhere classified; E21.3 Hyperparathyroidism, unspecified; E66.01 Morbid (severe) obesity due to excess calories; G89.29 Other chronic pain; G47.30 Sleep apnea, unspecified; F17.210 Nicotine dependence, cigarettes, uncomplicated; Z85.3 Personal history of malignant neoplasm of breast; Z90.710 Acquired absence of both cervix and uterus; Z95.810 Presence of automatic (implantable) cardiac defibrillator; Z79.01 Long term (current) use of anticoagulants; Z79.4 Long term (current) use of insulin; Z99.2 Dependence on renal dialysis; Y83.5 Amputation of limb(s) as the cause of abnormal reaction of the patient, or of later complication, without mention of misadventure at the time of the procedure | CPT/HCPCS: 11042; 97605 ==

== ENCOUNTER → 2017-09-16 | Outpatient (CLI) | payer MEDICARE, OTHER | END | disposition home or self-care (01) | LOC: PMGWOUND 10:00 | DX: T87.81 Dehiscence of amputation stump (principal); E11.621 Type 2 diabetes mellitus with foot ulcer; L97.523 Non-pressure chronic ulcer of other part of left foot with necrosis of muscle; I25.10 Atherosclerotic heart disease of native coronary artery without angina pectoris; J43.9 Emphysema, unspecified; E11.52 Type 2 diabetes mellitus with diabetic peripheral angiopathy with gangrene; I96 Gangrene, not elsewhere classified; E11.22 Type 2 diabetes mellitus with diabetic chronic kidney disease; I13.2 Hypertensive heart and chronic kidney disease with heart failure and with stage 5 chronic kidney disease, or end stage renal disease; N18.6 End stage renal disease; I50.22 Chronic systolic (congestive) heart failure; E21.3 Hyperparathyroidism, unspecified; F32.9 Major depressive disorder, single episode, unspecified; E66.01 Morbid (severe) obesity due to excess calories; G89.29 Other chronic pain; E78.00 Pure hypercholesterolemia, unspecified; G47.30 Sleep apnea, unspecified; E11.42 Type 2 diabetes mellitus with diabetic polyneuropathy; E11.36 Type 2 diabetes mellitus with diabetic cataract; E11.319 Type 2 diabetes mellitus with unspecified diabetic retinopathy without macular edema; E11.39 Type 2 diabetes mellitus with other diabetic ophthalmic complication; H40.9 Unspecified glaucoma; M19.90 Unspecified osteoarthritis, unspecified site; F17.210 Nicotine dependence, cigarettes, uncomplicated; Z85.3 Personal history of malignant neoplasm of breast; Z95.810 Presence of automatic (implantable) cardiac defibrillator; Z89.412 Acquired absence of left great toe; Z89.422 Acquired absence of other left toe(s); Z90.710 Acquired absence of both cervix and uterus; Z79.01 Long term (current) use of anticoagulants; Z79.4 Long term (current) use of insulin; Z99.2 Dependence on renal dialysis; Z68.41 Body mass index [BMI] 40.0-44.9, adult; Y83.5 Amputation of limb(s) as the cause of abnormal reaction of the patient, or of later complication, without mention of misadventure at the time of the procedure | CPT/HCPCS: 11042; 97605 ==

== ENCOUNTER 2017-09-22 15:52 | Emergency (ER) | payer MEDICARE, OTHER ==
[2017-09-22 16:42] LABS: ADD MAN DIFF? NO
[2017-09-22 16:44] LABS: BASO % 1 % (0-3); EOS # 0.2 x10^3/uL (0.0-0.7); EOS % 4 % (0-3); HEMATOCRIT 29.7 % (36.0-47.0); LYMPH # 0.8 x10^3/uL (1.0-4.8); LYMPH % 16 % (24-48); MEAN CORPUSCULAR HEMOGLOBIN 33 pg (25-35); MEAN CORPUSCULAR HGB CONC 34 g/dL (31-37); MEAN CORPUSCULAR VOLUME 99 fL (79-100); MONO # 0.3 x10^3/uL (0.0-1.1); MONO % 5 % (0-9); NEUT # 3.9 x10^3uL (1.8-7.7); NEUT % 75 % (31-73); PLATELET COUNT 108 x10^3/uL (140-400); RED BLOOD COUNT 3.02 x10^6/uL (3.50-5.40); RED CELL DISTRIBUTION WIDTH 17.2 % (11.5-14.5); WHITE BLOOD COUNT 5.3 x10^3/uL (4.0-11.0)
[2017-09-22 16:50] LABS: ANION GAP 8 (6-14); BLOOD UREA NITROGEN 29 mg/dL (7-20); BUN/CREATININE RATIO 10 (6-20); CALCIUM 8.6 mg/dL (8.5-10.1); CARBON DIOXIDE 33 mmol/L (21-32); CHLORIDE 102 mmol/L (98-107); CREATININE 2.9 mg/dL (0.6-1.0); GFR 16.8; GLUCOSE 170 mg/dL (70-99); POTASSIUM 3.9 mmol/L (3.5-5.1); SODIUM 143 mmol/L (136-145)
[2017-09-22 16:53] LABS: INR 1.3 (0.8-1.1); PARTIAL THROMBOPLASTIN TIME 37 SEC (24-38)
[2017-09-22 16:56] LABS: ALBUMIN 3.5 g/dL (3.4-5.0); ALBUMIN/GLOBULIN RATIO 0.9 (1.0-1.7); ALK PHOS 118 U/L (46-116); ALT (SGPT) 19 U/L (14-59); AST (SGOT) 15 U/L (15-37); TOTAL BILIRUBIN 0.6 mg/dL (0.2-1.0); TOTAL PROTEIN 7.5 g/dL (6.4-8.2)
== END 2017-09-22 17:57 | disposition home or self-care (01) ==
LOC: ER 15:52
DX: H11.423 Conjunctival edema, bilateral (principal); J44.9 Chronic obstructive pulmonary disease, unspecified; F32.9 Major depressive disorder, single episode, unspecified; I11.0 Hypertensive heart disease with heart failure; I50.9 Heart failure, unspecified; E11.9 Type 2 diabetes mellitus without complications; Z88.5 Allergy status to narcotic agent; Z88.2 Allergy status to sulfonamides; Z91.030 Bee allergy status; Z91.041 Radiographic dye allergy status
CPT/HCPCS: 36415; 70480; 80053; 85025; 85610; 85730; 99285-25

== ENCOUNTER → 2017-09-23 | Outpatient (CLI) | payer MEDICARE, OTHER | END | disposition home or self-care (01) | LOC: PMGWOUND 10:22 | DX: T87.89 Other complications of amputation stump (principal); E11.621 Type 2 diabetes mellitus with foot ulcer; L97.523 Non-pressure chronic ulcer of other part of left foot with necrosis of muscle; I25.10 Atherosclerotic heart disease of native coronary artery without angina pectoris; J43.9 Emphysema, unspecified; E11.52 Type 2 diabetes mellitus with diabetic peripheral angiopathy with gangrene; I96 Gangrene, not elsewhere classified; E11.22 Type 2 diabetes mellitus with diabetic chronic kidney disease; I13.2 Hypertensive heart and chronic kidney disease with heart failure and with stage 5 chronic kidney disease, or end stage renal disease; N18.6 End stage renal disease; I50.22 Chronic systolic (congestive) heart failure; E21.3 Hyperparathyroidism, unspecified; F32.9 Major depressive disorder, single episode, unspecified; E66.01 Morbid (severe) obesity due to excess calories; G89.29 Other chronic pain; E78.00 Pure hypercholesterolemia, unspecified; G47.30 Sleep apnea, unspecified; E11.42 Type 2 diabetes mellitus with diabetic polyneuropathy; E11.36 Type 2 diabetes mellitus with diabetic cataract; E11.319 Type 2 diabetes mellitus with unspecified diabetic retinopathy without macular edema; E11.39 Type 2 diabetes mellitus with other diabetic ophthalmic complication; H40.9 Unspecified glaucoma; M19.90 Unspecified osteoarthritis, unspecified site; F17.210 Nicotine dependence, cigarettes, uncomplicated; Z85.3 Personal history of malignant neoplasm of breast; Z95.810 Presence of automatic (implantable) cardiac defibrillator; Z89.412 Acquired absence of left great toe; Z89.422 Acquired absence of other left toe(s); Z90.710 Acquired absence of both cervix and uterus; Z79.01 Long term (current) use of anticoagulants; Z79.4 Long term (current) use of insulin; Z99.2 Dependence on renal dialysis; Z68.41 Body mass index [BMI] 40.0-44.9, adult; Y83.5 Amputation of limb(s) as the cause of abnormal reaction of the patient, or of later complication, without mention of misadventure at the time of the procedure | CPT/HCPCS: 11042 ==

== ENCOUNTER → 2017-09-30 | Outpatient (CLI) | payer MEDICARE, OTHER | END | disposition home or self-care (01) | LOC: PMGWOUND 10:05 | DX: T87.89 Other complications of amputation stump (principal); E11.621 Type 2 diabetes mellitus with foot ulcer; L97.523 Non-pressure chronic ulcer of other part of left foot with necrosis of muscle; I25.10 Atherosclerotic heart disease of native coronary artery without angina pectoris; J43.9 Emphysema, unspecified; E11.52 Type 2 diabetes mellitus with diabetic peripheral angiopathy with gangrene; I96 Gangrene, not elsewhere classified; E11.22 Type 2 diabetes mellitus with diabetic chronic kidney disease; I13.2 Hypertensive heart and chronic kidney disease with heart failure and with stage 5 chronic kidney disease, or end stage renal disease; N18.6 End stage renal disease; I50.22 Chronic systolic (congestive) heart failure; E21.3 Hyperparathyroidism, unspecified; F32.9 Major depressive disorder, single episode, unspecified; E66.01 Morbid (severe) obesity due to excess calories; G89.29 Other chronic pain; E78.00 Pure hypercholesterolemia, unspecified; G47.30 Sleep apnea, unspecified; E11.42 Type 2 diabetes mellitus with diabetic polyneuropathy; E11.36 Type 2 diabetes mellitus with diabetic cataract; E11.319 Type 2 diabetes mellitus with unspecified diabetic retinopathy without macular edema; E11.39 Type 2 diabetes mellitus with other diabetic ophthalmic complication; H40.9 Unspecified glaucoma; M19.90 Unspecified osteoarthritis, unspecified site; F17.210 Nicotine dependence, cigarettes, uncomplicated; Z85.3 Personal history of malignant neoplasm of breast; Z95.810 Presence of automatic (implantable) cardiac defibrillator; Z89.412 Acquired absence of left great toe; Z89.422 Acquired absence of other left toe(s); Z90.710 Acquired absence of both cervix and uterus; Z79.01 Long term (current) use of anticoagulants; Z79.4 Long term (current) use of insulin; Z99.2 Dependence on renal dialysis; Z68.41 Body mass index [BMI] 40.0-44.9, adult; Y83.5 Amputation of limb(s) as the cause of abnormal reaction of the patient, or of later complication, without mention of misadventure at the time of the procedure | CPT/HCPCS: 11042 ==

== ENCOUNTER → 2017-10-07 | Outpatient (CLI) | payer MEDICARE, OTHER ==
[2017-09-22 15:55] VITALS: BP 209/124
[~2017-10-07] MED LIST changes: +AMOX1TAB10 PO; +AMOX1TAB58 PO; +ASPI325T8 PO; +CARV6.252 PO; +CHOL10003 PO; +CLOP75TA PO; -FERR-26 PO; +FERR325T14 PO; +FLUO20CA8 PO; +FOLI0.8T21 PO; +GABA-587 PO; +GABA300C8 PO; +GABA600T2 PO; +GLIM2TAB PO; +HYDR-2762 PO; -IPRA3AMP NEB; +IPRA3AMP29 NEB; +PANT40TA5 PO; +SEVE800T9 PO; +TAMS0.4C2 PO; -VALS80TA22 PO; +VALS80TA28 PO
== END | disposition home or self-care (01) ==
LOC: PMGWOUND 09:56
PROVIDERS: ATTEND Preventive Medicine Undersea and Hyperbaric Medicine
DX: T87.89 Other complications of amputation stump (principal); E11.621 Type 2 diabetes mellitus with foot ulcer; L97.523 Non-pressure chronic ulcer of other part of left foot with necrosis of muscle; I25.10 Atherosclerotic heart disease of native coronary artery without angina pectoris; J43.9 Emphysema, unspecified; E11.52 Type 2 diabetes mellitus with diabetic peripheral angiopathy with gangrene; I96 Gangrene, not elsewhere classified; E11.22 Type 2 diabetes mellitus with diabetic chronic kidney disease; I13.2 Hypertensive heart and chronic kidney disease with heart failure and with stage 5 chronic kidney disease, or end stage renal disease; N18.6 End stage renal disease; I50.22 Chronic systolic (congestive) heart failure; E21.3 Hyperparathyroidism, unspecified; F32.9 Major depressive disorder, single episode, unspecified; E66.01 Morbid (severe) obesity due to excess calories; G89.29 Other chronic pain; E78.00 Pure hypercholesterolemia, unspecified; G47.30 Sleep apnea, unspecified; E11.42 Type 2 diabetes mellitus with diabetic polyneuropathy; E11.36 Type 2 diabetes mellitus with diabetic cataract; E11.319 Type 2 diabetes mellitus with unspecified diabetic retinopathy without macular edema; E11.39 Type 2 diabetes mellitus with other diabetic ophthalmic complication; H40.9 Unspecified glaucoma; M19.90 Unspecified osteoarthritis, unspecified site; F17.210 Nicotine dependence, cigarettes, uncomplicated; Z85.3 Personal history of malignant neoplasm of breast; Z95.810 Presence of automatic (implantable) cardiac defibrillator; Z89.412 Acquired absence of left great toe; Z89.422 Acquired absence of other left toe(s); Z90.710 Acquired absence of both cervix and uterus; Z79.01 Long term (current) use of anticoagulants; Z79.4 Long term (current) use of insulin; Z99.2 Dependence on renal dialysis; Z68.41 Body mass index [BMI] 40.0-44.9, adult; Y83.5 Amputation of limb(s) as the cause of abnormal reaction of the patient, or of later complication, without mention of misadventure at the time of the procedure
CPT/HCPCS: 97597

== ENCOUNTER → 2017-10-14 | Outpatient (CLI) | payer MEDICARE, OTHER ==
[2017-09-22 15:55] VITALS: BP 209/124
== END | disposition home or self-care (01) ==
LOC: PMGWOUND 09:55
PROVIDERS: ATTEND Preventive Medicine Undersea and Hyperbaric Medicine
DX: T87.89 Other complications of amputation stump (principal); E11.621 Type 2 diabetes mellitus with foot ulcer; L97.523 Non-pressure chronic ulcer of other part of left foot with necrosis of muscle; I13.2 Hypertensive heart and chronic kidney disease with heart failure and with stage 5 chronic kidney disease, or end stage renal disease; E11.22 Type 2 diabetes mellitus with diabetic chronic kidney disease; N18.6 End stage renal disease; I50.22 Chronic systolic (congestive) heart failure; E11.39 Type 2 diabetes mellitus with other diabetic ophthalmic complication; H40.89 Other specified glaucoma; E11.52 Type 2 diabetes mellitus with diabetic peripheral angiopathy with gangrene; I96 Gangrene, not elsewhere classified; E11.319 Type 2 diabetes mellitus with unspecified diabetic retinopathy without macular edema; E11.36 Type 2 diabetes mellitus with diabetic cataract; M19.90 Unspecified osteoarthritis, unspecified site; I25.10 Atherosclerotic heart disease of native coronary artery without angina pectoris; E21.3 Hyperparathyroidism, unspecified; K21.9 Gastro-esophageal reflux disease without esophagitis; J43.9 Emphysema, unspecified; E66.01 Morbid (severe) obesity due to excess calories; G89.29 Other chronic pain; E78.00 Pure hypercholesterolemia, unspecified; F17.210 Nicotine dependence, cigarettes, uncomplicated; F32.9 Major depressive disorder, single episode, unspecified; Z99.2 Dependence on renal dialysis; Z90.710 Acquired absence of both cervix and uterus; Z89.412 Acquired absence of left great toe; Z89.422 Acquired absence of other left toe(s); Z96.1 Presence of intraocular lens; Z95.810 Presence of automatic (implantable) cardiac defibrillator; Z68.41 Body mass index [BMI] 40.0-44.9, adult; Z79.4 Long term (current) use of insulin; Z79.01 Long term (current) use of anticoagulants; Z79.84 Long term (current) use of oral hypoglycemic drugs; Z85.3 Personal history of malignant neoplasm of breast; Z88.1 Allergy status to other antibiotic agents; Z88.8 Allergy status to other drugs, medicaments and biological substances; Y83.5 Amputation of limb(s) as the cause of abnormal reaction of the patient, or of later complication, without mention of misadventure at the time of the procedure; Z88.2 Allergy status to sulfonamides; Z88.5 Allergy status to narcotic agent
CPT/HCPCS: 15275; Q4132

== ENCOUNTER → 2017-10-21 | Outpatient (CLI) | payer MEDICARE, OTHER ==
[2017-09-22 15:55] VITALS: BP 209/124
== END | disposition home or self-care (01) ==
LOC: PMGWOUND 10:15
PROVIDERS: ATTEND Preventive Medicine Undersea and Hyperbaric Medicine
DX: E11.621 Type 2 diabetes mellitus with foot ulcer (principal); L97.523 Non-pressure chronic ulcer of other part of left foot with necrosis of muscle; I13.2 Hypertensive heart and chronic kidney disease with heart failure and with stage 5 chronic kidney disease, or end stage renal disease; E11.22 Type 2 diabetes mellitus with diabetic chronic kidney disease; N18.6 End stage renal disease; I50.22 Chronic systolic (congestive) heart failure; E11.36 Type 2 diabetes mellitus with diabetic cataract; E11.52 Type 2 diabetes mellitus with diabetic peripheral angiopathy with gangrene; E11.39 Type 2 diabetes mellitus with other diabetic ophthalmic complication; E11.319 Type 2 diabetes mellitus with unspecified diabetic retinopathy without macular edema; H40.89 Other specified glaucoma; E11.42 Type 2 diabetes mellitus with diabetic polyneuropathy; K21.9 Gastro-esophageal reflux disease without esophagitis; T87.89 Other complications of amputation stump; T87.81 Dehiscence of amputation stump; J43.9 Emphysema, unspecified; I25.10 Atherosclerotic heart disease of native coronary artery without angina pectoris; E66.01 Morbid (severe) obesity due to excess calories; E21.3 Hyperparathyroidism, unspecified; G89.29 Other chronic pain; E78.00 Pure hypercholesterolemia, unspecified; M19.90 Unspecified osteoarthritis, unspecified site; G47.30 Sleep apnea, unspecified; F32.9 Major depressive disorder, single episode, unspecified; F17.210 Nicotine dependence, cigarettes, uncomplicated; Z68.41 Body mass index [BMI] 40.0-44.9, adult; Z95.810 Presence of automatic (implantable) cardiac defibrillator; Z96.1 Presence of intraocular lens; Z99.2 Dependence on renal dialysis; Z89.412 Acquired absence of left great toe; Z89.422 Acquired absence of other left toe(s); Z90.710 Acquired absence of both cervix and uterus; Z79.4 Long term (current) use of insulin; Z79.01 Long term (current) use of anticoagulants; Z79.84 Long term (current) use of oral hypoglycemic drugs; Z85.3 Personal history of malignant neoplasm of breast; Z91.030 Bee allergy status; Z88.5 Allergy status to narcotic agent; Z88.8 Allergy status to other drugs, medicaments and biological substances; Z88.1 Allergy status to other antibiotic agents; Z88.2 Allergy status to sulfonamides; Z91.041 Radiographic dye allergy status
CPT/HCPCS: 15275; Q4132

== ENCOUNTER → 2017-10-28 | Outpatient (CLI) | payer MEDICARE, OTHER ==
[2017-09-22 15:55] VITALS: BP 209/124
== END | disposition home or self-care (01) ==
LOC: PMGWOUND 10:00
PROVIDERS: ATTEND Preventive Medicine Undersea and Hyperbaric Medicine
DX: T87.89 Other complications of amputation stump (principal); E11.621 Type 2 diabetes mellitus with foot ulcer; L97.523 Non-pressure chronic ulcer of other part of left foot with necrosis of muscle; I13.2 Hypertensive heart and chronic kidney disease with heart failure and with stage 5 chronic kidney disease, or end stage renal disease; E11.22 Type 2 diabetes mellitus with diabetic chronic kidney disease; N18.6 End stage renal disease; I50.22 Chronic systolic (congestive) heart failure; E11.36 Type 2 diabetes mellitus with diabetic cataract; E11.42 Type 2 diabetes mellitus with diabetic polyneuropathy; E11.52 Type 2 diabetes mellitus with diabetic peripheral angiopathy with gangrene; E11.39 Type 2 diabetes mellitus with other diabetic ophthalmic complication; E11.319 Type 2 diabetes mellitus with unspecified diabetic retinopathy without macular edema; H42 Glaucoma in diseases classified elsewhere; M19.90 Unspecified osteoarthritis, unspecified site; J43.9 Emphysema, unspecified; K21.9 Gastro-esophageal reflux disease without esophagitis; E21.3 Hyperparathyroidism, unspecified; F32.9 Major depressive disorder, single episode, unspecified; F17.210 Nicotine dependence, cigarettes, uncomplicated; E78.00 Pure hypercholesterolemia, unspecified; I25.10 Atherosclerotic heart disease of native coronary artery without angina pectoris; G89.29 Other chronic pain; M54.9 Dorsalgia, unspecified; G47.30 Sleep apnea, unspecified; E66.01 Morbid (severe) obesity due to excess calories; Z68.41 Body mass index [BMI] 40.0-44.9, adult; Z95.810 Presence of automatic (implantable) cardiac defibrillator; Z96.1 Presence of intraocular lens; Z99.2 Dependence on renal dialysis; Z79.01 Long term (current) use of anticoagulants; Z79.84 Long term (current) use of oral hypoglycemic drugs; Z79.4 Long term (current) use of insulin; Z90.710 Acquired absence of both cervix and uterus; Z89.412 Acquired absence of left great toe; Z89.422 Acquired absence of other left toe(s); Z85.828 Personal history of other malignant neoplasm of skin; Z88.1 Allergy status to other antibiotic agents; Z88.5 Allergy status to narcotic agent; Z91.041 Radiographic dye allergy status; Z88.2 Allergy status to sulfonamides; Z91.030 Bee allergy status; Z88.8 Allergy status to other drugs, medicaments and biological substances
CPT/HCPCS: 15275; Q4133

== ENCOUNTER → 2017-11-04 | Outpatient (CLI) | payer MEDICARE, OTHER ==
[2017-09-22 15:55] VITALS: BP 209/124
[~2017-11-04] MED LIST changes: +CEPH-263 PO; +Fluconazole PO; +MINO100C PO
--- NOTE | 2017-11-04 12:09 | RAD ---
Left foot, 3 views, 11/04/2017: HISTORY: Toe amputation, nonhealing wound Comparison is made to a study from 05/27/2017. The left great toe is surgically absent. There is mild unchanged cortical irregularity involving the distal margin of the first metatarsal head. There are tiny calcific densities in the adjacent soft tissues. No new bony abnormality is detected. There is moderate diffuse soft tissue swelling about the foot. Extensive arterial calcifications are present. IMPRESSION: 1. Mild cortical irregularity involving the head of the first metatarsal at the amputation site is unchanged since 05/27/2017. 2. No new abnormality is detected. Electronically signed by: Zac Anne MD (11/04/2017 12:06 PM) [facility]
== END | disposition home or self-care (01) ==
LOC: PMGWOUND 10:09
PROVIDERS: ATTEND Preventive Medicine Undersea and Hyperbaric Medicine
DX: T87.89 Other complications of amputation stump (principal); E11.621 Type 2 diabetes mellitus with foot ulcer; L97.523 Non-pressure chronic ulcer of other part of left foot with necrosis of muscle; I13.2 Hypertensive heart and chronic kidney disease with heart failure and with stage 5 chronic kidney disease, or end stage renal disease; E11.22 Type 2 diabetes mellitus with diabetic chronic kidney disease; N18.6 End stage renal disease; I50.22 Chronic systolic (congestive) heart failure; E11.36 Type 2 diabetes mellitus with diabetic cataract; E11.39 Type 2 diabetes mellitus with other diabetic ophthalmic complication; E11.319 Type 2 diabetes mellitus with unspecified diabetic retinopathy without macular edema; H40.89 Other specified glaucoma; H42 Glaucoma in diseases classified elsewhere; E11.42 Type 2 diabetes mellitus with diabetic polyneuropathy; E11.52 Type 2 diabetes mellitus with diabetic peripheral angiopathy with gangrene; I96 Gangrene, not elsewhere classified; F32.9 Major depressive disorder, single episode, unspecified; J43.9 Emphysema, unspecified; F17.210 Nicotine dependence, cigarettes, uncomplicated; E21.3 Hyperparathyroidism, unspecified; I25.10 Atherosclerotic heart disease of native coronary artery without angina pectoris; K21.9 Gastro-esophageal reflux disease without esophagitis; G89.29 Other chronic pain; M54.9 Dorsalgia, unspecified; E78.00 Pure hypercholesterolemia, unspecified; G47.30 Sleep apnea, unspecified; M19.90 Unspecified osteoarthritis, unspecified site; E66.01 Morbid (severe) obesity due to excess calories; Z68.41 Body mass index [BMI] 40.0-44.9, adult; Z79.4 Long term (current) use of insulin; Z99.2 Dependence on renal dialysis; Z90.710 Acquired absence of both cervix and uterus; Z85.3 Personal history of malignant neoplasm of breast; Z88.5 Allergy status to narcotic agent; Z88.2 Allergy status to sulfonamides; Z88.8 Allergy status to other drugs, medicaments and biological substances; Z88.1 Allergy status to other antibiotic agents; Z91.030 Bee allergy status; Z86.19 Personal history of other infectious and parasitic diseases; Z85.828 Personal history of other malignant neoplasm of skin; Y83.5 Amputation of limb(s) as the cause of abnormal reaction of the patient, or of later complication, without mention of misadventure at the time of the procedure
CPT/HCPCS: 73630; 97597

== ENCOUNTER → 2017-11-11 | Outpatient (CLI) | payer MEDICARE, OTHER ==
[2017-09-22 15:55] VITALS: BP 209/124
== END | disposition home or self-care (01) ==
LOC: PMGWOUND 10:11
PROVIDERS: ATTEND Emergency Medicine Undersea and Hyperbaric Medicine
DX: T87.89 Other complications of amputation stump (principal); E11.621 Type 2 diabetes mellitus with foot ulcer; L97.523 Non-pressure chronic ulcer of other part of left foot with necrosis of muscle; I13.2 Hypertensive heart and chronic kidney disease with heart failure and with stage 5 chronic kidney disease, or end stage renal disease; N18.6 End stage renal disease; E11.22 Type 2 diabetes mellitus with diabetic chronic kidney disease; N18.9 Chronic kidney disease, unspecified; I50.22 Chronic systolic (congestive) heart failure; E11.36 Type 2 diabetes mellitus with diabetic cataract; E11.42 Type 2 diabetes mellitus with diabetic polyneuropathy; E11.52 Type 2 diabetes mellitus with diabetic peripheral angiopathy with gangrene; I96 Gangrene, not elsewhere classified; E11.39 Type 2 diabetes mellitus with other diabetic ophthalmic complication; H40.89 Other specified glaucoma; H42 Glaucoma in diseases classified elsewhere; E11.319 Type 2 diabetes mellitus with unspecified diabetic retinopathy without macular edema; J43.9 Emphysema, unspecified; G89.29 Other chronic pain; M54.9 Dorsalgia, unspecified; F32.9 Major depressive disorder, single episode, unspecified; K21.9 Gastro-esophageal reflux disease without esophagitis; E21.3 Hyperparathyroidism, unspecified; F17.210 Nicotine dependence, cigarettes, uncomplicated; E78.00 Pure hypercholesterolemia, unspecified; G47.30 Sleep apnea, unspecified; I25.10 Atherosclerotic heart disease of native coronary artery without angina pectoris; M19.90 Unspecified osteoarthritis, unspecified site; E66.01 Morbid (severe) obesity due to excess calories; Z68.41 Body mass index [BMI] 40.0-44.9, adult; Z99.2 Dependence on renal dialysis; Z79.4 Long term (current) use of insulin; Z79.01 Long term (current) use of anticoagulants; Z79.84 Long term (current) use of oral hypoglycemic drugs; Z90.710 Acquired absence of both cervix and uterus; Z85.3 Personal history of malignant neoplasm of breast; Z86.19 Personal history of other infectious and parasitic diseases; Z85.828 Personal history of other malignant neoplasm of skin; Z88.8 Allergy status to other drugs, medicaments and biological substances; Y83.5 Amputation of limb(s) as the cause of abnormal reaction of the patient, or of later complication, without mention of misadventure at the time of the procedure
CPT/HCPCS: 99213

== ENCOUNTER 2017-11-14 09:24 | Inpatient (IN) | payer MEDICARE, OTHER ==
[~2017-11-14] VITALS: Ht 147.3 cm; Wt 99.8 kg
[~2017-11-14 09:24] MED LIST changes: -CEPH-263 PO; -Fluconazole PO; -MINO100C PO
[2017-11-14] MEDS ORDERED: PIPERACILLIN/TAZOBACTAM 3.375 GM in IV NORMAL SALINE 50ML 50 ML IV ONE (09:45)
[2017-11-14 09:58] LABS: BASO # 0.1 x10^3/uL (0.0-0.2); BASO % 1 % (0-3); EOS # 0.1 x10^3/uL (0.0-0.7); EOS % 1 % (0-3); HEMATOCRIT 38.8 % (36.0-47.0); LYMPH # 0.5 x10^3/uL (1.0-4.8); LYMPH % 5 % (24-48); MEAN CORPUSCULAR HEMOGLOBIN 32 pg (25-35); MEAN CORPUSCULAR HGB CONC 33 g/dL (31-37); MEAN CORPUSCULAR VOLUME 97 fL (79-100); MONO # 0.7 x10^3/uL (0.0-1.1); MONO % 6 % (0-9); NEUT # 9.3 x10^3uL (1.8-7.7); NEUT % 87 % (31-73); PLATELET COUNT 125 x10^3/uL (140-400); RED BLOOD COUNT 4.02 x10^6/uL (3.50-5.40); RED CELL DISTRIBUTION WIDTH 16.4 % (11.5-14.5); WHITE BLOOD COUNT 10.7 x10^3/uL (4.0-11.0)
[2017-11-14] MEDS ORDERED: fentaNYL PF VIAL 100 MCG/2 ML VIAL IV ONE (10:00)
[2017-11-14 10:11] LABS: CALCIUM 8.6 mg/dL (8.5-10.1); POTASSIUM 5.4 mmol/L (3.5-5.1)
--- NOTE | 2017-11-14 10:15 | RAD ---
Portable chest, 11/14/2017: HISTORY: Shortness of breath, fever Comparison is made to a study from 05/16/2017. A left-sided transvenous pacing device remains in place with a single lead extending into the right ventricle. The heart is at the upper limits of normal in size. The pulmonary vascularity is normal. There is calcific plaquing of the aorta. No pulmonary infiltrate is seen. There is no evidence of pleural fluid. IMPRESSION: No acute cardiopulmonary abnormality is detected. Electronically signed by: Zac Anne MD (11/14/2017 10:12 AM) [facility]
[2017-11-14 10:17] LABS: ALBUMIN 3.6 g/dL (3.4-5.0); ALBUMIN/GLOBULIN RATIO 0.8 (1.0-1.7); TOTAL BILIRUBIN 0.9 mg/dL (0.2-1.0); TOTAL PROTEIN 8.1 g/dL (6.4-8.2)
[2017-11-14 10:19] LABS: BILIRUBIN,URINE SMALL (NEG); CLARITY,URINE CLEAR; COLOR,URINE YELLOW; NITRITE,URINE NEGATIVE (NEG); PROTEIN,URINE 100 mg/dL (NEG-TRACE)
[2017-11-14] MEDS ORDERED: DEXTROSE 50% 25 GM / 50ML DISP.SYRIN. IV ONE (10:30)
[2017-11-14] MEDS ORDERED: INSULIN REGULAR 100 UNIT/ML 3ML VIAL. IV ONE (10:30)
[2017-11-14] MEDS ORDERED: ACETAMINOPHEN 500 MG TABLET PO ONE (10:30)
[2017-11-14] MEDS ORDERED: VANCOMYCIN 1.25 GM in IV NORMAL SALINE 250ML 250 ML IV ONE (10:30)
[2017-11-14] MEDS ORDERED: ALBUTEROL SULFATE 2.5 MG/3 ML NEBU. CONT NEB ONE (10:30)
--- NOTE | 2017-11-14 10:34 | EKG ---
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
[2017-11-14 10:41] LABS: AMORPHOUS SEDIMENT,UR PRESENT /HPF; SQUAMOUS EPITHELIAL CELL,UR FEW /LPF
[2017-11-14 10:42] LABS: BACTERIA,URINE FEW /HPF (0-FEW)
[2017-11-14 10:43] LABS: RBC,URINE OCC /HPF (0-2)
[2017-11-14] MEDS ORDERED: VANCOMYCIN 2 GM in IV NORMAL SALINE 500ML BAG 500 ML IV ONE (10:45)
--- NOTE | 2017-11-14 10:47 | PHYS DOC ---
Past Medical History Past Medical History: Asthma, CHF, COPD, Diabetes-Type II, Renal Disease, Renal Failure Additional Past Medical Histor: CARDIOMYOPATHY,GANGRENE R THIGH Past Surgical History: Other Additional Past Surgical Histo: nephrectomy, left great toe amputation Smoking: Cigarettes, 1 Pack Per Day Alcohol Use: None Drug Use: None Adult General Chief Complaint Chief Complaint: FEVER HPI HPI Patient is a 57 year old female who presents with complaining of fever and chills. Patient has history of renal failure on dialysis and he states she missed her dialysis today because she didn't feel good since she woke up this morning and had chills and subjective fever with hurting all over. Patient complaining of nonproductive cough and headache and rated her pain 7/10. Patient denies nausea and vomiting, urinary symptom, neck pain. Patient states she had history of sepsis 1 year ago with multiple organ failure. Review of Systems Review of Systems Constitutional: Reports fever and chills Eyes: Denies change in visual acuity, redness, or eye pain [] HENT: Denies nasal congestion or sore throat [] Respiratory: Reports cough and shortness of breath Cardiovascular: No additional information not addressed in HPI [] GI: Denies abdominal pain, nausea, vomiting, bloody stools or diarrhea [] : Denies dysuria or hematuria [] Musculoskeletal: Reports back pain Integument: Denies rash or skin lesions [] Neurologic: Denies headache, focal weakness or sensory changes [] Endocrine: Denies polyuria or polydipsia [] All other systems were reviewed and found to be within normal limits, except as documented in this note. Current Medications Current Medications Current Medications Medications (Trade) Dose Ordered Sig/Susan Start Time Stop Time Status Last Admin Dose Admin Acetaminophen (Tylenol) 1,000 mg 1X ONCE 11/14/17 10:30 11/14/17 10:32 DC 11/14/17 10:34 1,000 MG Albuterol Sulfate (Ventolin Neb Soln) 10 mg 1X ONCE 11/14/17 10:30 11/14/17 10:32 DC Dextrose (Dextrose 50%-Water Syringe) 25 gm 1X ONCE 11/14/17 10:30 11/14/17 10:32 DC 11/14/17 11:27 25 GM Fentanyl Citrate (Fentanyl 2ml Vial) 50 mcg 1X ONCE 11/14/17 10:00 11/14/17 10:01 DC 11/14/17 09:57 50 MCG Insulin Human Regular (HumuLIN R VIAL) 10 unit 1X ONCE 11/14/17 10:30 11/14/17 10:32 DC 11/14/17 11:28 10 UNIT Piperacillin Sod/ Tazobactam Sod 3.375 gm/Sodium Chloride 50 ml @ 100 mls/hr 1X ONCE 11/14/17 09:45 11/14/17 10:14 DC 11/14/17 09:56 100 MLS/HR Vancomycin HCl 1.25 gm/Sodium Chloride 250 ml @ 166.667 mls/hr 1X ONCE 11/14/17 10:30 11/14/17 11:59 UNV Allergies Allergies Allergies Coded Allergies Type Severity Reaction Last Updated Verified sulfamethoxazole Allergy Severe Hives 03/18/13 Yes trimethoprim Allergy Severe Hives 03/18/13 Yes venom-honey bee Allergy Severe Anaphylaxis 03/18/13 Yes I S O L A T I O N *CONTACT* Allergy Unknown 04/15/16 Yes Physical Exam Physical Exam Constitutional: Well developed, well nourished, mild distress, non-toxic appearance, febrile, temperature 99.7, morbidly obese HENT: Normocephalic, atraumatic, bilateral external ears normal, oropharynx dry , no oral exudates, nose normal. [] Eyes: PERRLA, EOMI, conjunctiva normal, no discharge. [] Neck: Normal range of motion, no tenderness, supple, no stridor. [] Cardiovascular: Tachycardia, no murmur [] Lungs & Thorax: Bilateral breath sounds clear to auscultation [] Abdomen: Markedly distended with fluid, obese abdomen Bowel sounds normal, soft , no tenderness, no masses, no pulsatile masses. [] Skin: Warm, dry, no erythema, no rash. [] Back: No tenderness, no CVA tenderness. [] Extremities: No tenderness, no cyanosis, no clubbing, ROM intact, no edema. [] Neurologic: Alert and oriented X 3, normal motor function, normal sensory function, no focal deficits noted. [] Psychologic: Affect normal, judgement normal, mood normal. [] Current Patient Data Vital Signs Vital Signs Date Time Temp Pulse Resp B/P (MAP) Pulse Ox O2 Delivery O2 Flow Rate FiO2 11/14/17 10:10 99.7 95 22 144/65 (91) 97 Room Air 99.7 Lab Values Laboratory Tests Test 11/14/17 09:46 11/14/17 10:00 11/14/17 10:29 11/14/17 10:32 White Blood Count 10.7 x10^3/uL (4.0-11.0) Red Blood Count 4.02 x10^6/uL (3.50-5.40) Hemoglobin 13.0 g/dL (12.0-15.5) Hematocrit 38.8 % (36.0-47.0) Mean Corpuscular Volume 97 fL (79-100) Mean Corpuscular Hemoglobin 32 pg (25-35) Mean Corpuscular Hemoglobin Concent 33 g/dL (31-37) Red Cell Distribution Width 16.4 % (11.5-14.5) H Platelet Count 125 x10^3/uL (140-400) L Neutrophils (%) (Auto) 87 % (31-73) H Lymphocytes (%) (Auto) 5 % (24-48) L Monocytes (%) (Auto) 6 % (0-9) Eosinophils (%) (Auto) 1 % (0-3) Basophils (%) (Auto) 1 % (0-3) Neutrophils # (Auto) 9.3 x10^3uL (1.8-7.7) H Lymphocytes # (Auto) 0.5 x10^3/uL (1.0-4.8) L Monocytes # (Auto) 0.7 x10^3/uL (0.0-1.1) Eosinophils # (Auto) 0.1 x10^3/uL (0.0-0.7) Basophils # (Auto) 0.1 x10^3/uL (0.0-0.2) Segmented Neutrophils % 78 % (35-66) H Band Neutrophils % 10 % (0-9) H Lymphocytes % 2 % (24-48) L Atypical Lymphocytes % (Manual) 1 % (0-0) H Monocytes % 6 % (0-10) Eosinophils % 2 % (0-5) Basophils % 1 % (0-3) Platelet Estimate Decreased (ADEQUATE) Polychromasia Present Anisocytosis Slight Macrocytosis Slight Tear Drop Cells Occ Ovalocytes Few Sodium Level 138 mmol/L (136-145) Potassium Level 5.4 mmol/L (3.5-5.1) H Chloride Level 98 mmol/L (98-107) Carbon Dioxide Level 28 mmol/L (21-32) Anion Gap 12 (6-14) Blood Urea Nitrogen 60 mg/dL (7-20) H Creatinine 5.0 mg/dL (0.6-1.0) H Estimated GFR (Cockcroft-Gault) 9.0 BUN/Creatinine Ratio 12 (6-20) Glucose Level 138 mg/dL (70-99) H Lactic Acid Level 1.3 mmol/L (0.4-2.0) Calcium Level 8.6 mg/dL (8.5-10.1) Total Bilirubin 0.9 mg/dL (0.2-1.0) Aspartate Amino Transferase (AST) 19 U/L (15-37) Alanine Aminotransferase (ALT) 19 U/L (14-59) Alkaline Phosphatase 139 U/L (46-116) H Ammonia 39 mcmol/L (11-34) H TH-Fyt-V-Type Natriuretic Peptide 6791 pg/mL (0-124) H Total Protein 8.1 g/dL (6.4-8.2) Albumin 3.6 g/dL (3.4-5.0) Albumin/Globulin Ratio 0.8 (1.0-1.7) L Heterophil Agglutinins Negative (NEGATIVE) Urine Collection Type Unknown Urine Color Yellow Urine Clarity Clear Urine pH 5.0 Urine Specific [place] 1.020 Urine Protein 100 mg/dL (NEG-TRACE) Urine Glucose (UA) Negative mg/dL (NEG) Urine Ketones (Stick) Trace mg/dL (NEG) Urine Blood Negative (NEG) Urine Nitrite Negative (NEG) Urine Bilirubin Small (NEG) Urine Urobilinogen Dipstick 1.0 mg/dL (0.2 mg/dL) Urine Leukocyte Esterase Trace (NEG) Urine RBC Occ /HPF (0-2) Urine WBC 1-4 /HPF (0-4) Urine Squamous Epithelial Cells Few /LPF Urine Amorphous Sediment Present /HPF Urine Bacteria Few /HPF (0-FEW) Urine Mucus Mod /LPF Influenza Type A Antigen Negative (NEGATIVE) Influenza Type B Antigen Negative (NEGATIVE) Glucose (Fingerstick) 135 mg/dL (70-99) H Laboratory Tests 11/14/17 09:46 Laboratory Tests 11/14/17 09:46 EKG EKG Patient interpreted by me. EKG at 1040 showed sinus tachycardia at rate of 102, low QRS voltage, poor R-wave progress in anteroseptal leads, right ventricular hypertrophy, no acute ST and T-wave abnormalities Radiology/Procedures Radiology/Procedures IMAGING REPORT Signed PATIENT: CHARLIE YBARRA ACCOUNT: [id number] : 1960 LOCATION: [facility] AGE: 57 SEX: F EXAM STATUS: ADM IN ORD. PHYSICIAN: LOVELY PAYAN MD REASON: fever PROCEDURE: CT ABDOMEN WO CONTRAST CT of the abdomen without contrast, 11/14/2017: HISTORY: Fever Noncontrast scans were obtained. The images are degraded by streak artifacts. The liver is enlarged measuring 21 cm in craniocaudad extent. No hepatic mass or bile duct dilatation is seen. No dense gallstones are seen. The pancreas is unremarkable. The spleen appears to be within normal limits in size. The left kidney is surgically absent. The unopacified right kidney shows no abnormality. There is moderate aortoiliac calcific plaquing. No retroperitoneal or mesenteric adenopathy is seen. A small amount of ascites is present. This has increased since 03/09/2017. The bowel loops are not dilated. No free air is seen in the abdomen. There is moderate streaky edema in the subcutaneous soft tissues, particularly in the lower abdomen and flank regions. IMPRESSION: 1. Small volume of ascites. 2. Hepatomegaly. 3. Status post left nephrectomy. 4. Moderate subcutaneous edema, particularly in the lower abdomen. PQRS Compliance Statement: One or more of the following individualized dose reduction techniques were utilized for this examination: 1. Automated exposure control 2. Adjustment of the mA and/or kV according to patient size 3. Use of iterative reconstruction technique Electronically signed by: Zac Anne MD (11/14/2017 11:57 AM) [facility] DICTATED and SIGNED BY: ZAC ANNE MD DATE: 11/14/17 1148 [facility] [address] [place] [address] IMAGING REPORT Signed PATIENT: CHARLIE YBARRA ACCOUNT: [id number] : 1960 LOCATION: [facility] AGE: 57 SEX: F EXAM STATUS: ADM IN ORD. PHYSICIAN: LOVELY PAYAN MD REASON: fever, headache PROCEDURE: CT HEAD WO CONTRAST CT of the head without contrast, 11/14/2017: HISTORY: Fever, altered mental status Comparison is made to a study from 10/11/2016. There is mild cerebral atrophy. The ventricles are within normal limits in size. There is no shift of the midline structures. There is no evidence of acute intracranial hemorrhage or mass effect. Mild mucosal thickening is noted in the maxillary sinuses. No free fluid is seen in the sinuses. IMPRESSION: No acute intracranial abnormality is detected. Electronically signed by: Zac Anne MD (11/14/2017 11:28 AM) [facility] DICTATED and SIGNED BY: ZAC ANNE MD DATE: 11/14/17 1125 Course & Med Decision Making Course & Med Decision Making Pertinent Labs and Imaging studies reviewed. (See chart for details) Evaluation of patient in ER showed 57-year-old male patient with history of chronic renal failure on hemodialysis brought in because of chills and subjective fever since this morning patient had temperature of 99.7 that gradually increased to 101.7. Patient missed her dialysis today. Patient treated with fentanyl, Tylenol, Zosyn and vancomycin but IV fluid was not given because of history of renal failure and CHF. Chest x-ray, CT abdomen and pelvis , UA and white count was unremarkable except for mild ascites. Dr. Deras on- call rope tow operator was consulted at 1035 and plans to dialyze patient. She had potassium of 5.4 and treated with albuterol and insulin and D50. Dr. Olmstead accepted admission at 1040. Dragon Disclaimer Dragon Disclaimer This electronic medical record was generated, in whole or in part, using a voice recognition dictation system. Departure Departure Impression: Primary Impression: Sepsis Additional Impressions: ESRD (end stage renal disease) on dialysis Hyperkalemia Disposition: ADMITTED INPATIENT (at 1041) Admitting Physician: Stefany Olmstead Condition: GUARDED Referrals: PAULY AU MD (PCP) Critical Care Time Critical care time was 80 minutes exclusive of procedures. Problem Qualifiers LOVELY PAYAN MD Nov 14, 2017 10:47
[2017-11-14 11:06] LABS: INFLUENZA A PATIENT NEGATIVE (NEGATIVE); INFLUENZA B PATIENT NEGATIVE (NEGATIVE)
[2017-11-14 11:14] LABS: % ATYL 1 % (0-0); % BANDS 10 % (0-9); % BASOS 1 % (0-3); % EOS 2 % (0-5); % LYMPHS 2 % (24-48); % MONOS 6 % (0-10); % SEGS 78 % (35-66)
[2017-11-14 11:15] LABS: ANISOCYTOSIS SLIGHT; PLT ESTIMATE DECREASED (ADEQUATE); POLYCHROMASIA PRESENT
[2017-11-14 11:16] LABS: OVALOCYTES FEW; TEAR DROP CELLS OCC
--- NOTE | 2017-11-14 11:31 | RAD ---
CT of the head without contrast, 11/14/2017: HISTORY: Fever, altered mental status Comparison is made to a study from 10/11/2016. There is mild cerebral atrophy. The ventricles are within normal limits in size. There is no shift of the midline structures. There is no evidence of acute intracranial hemorrhage or mass effect. Mild mucosal thickening is noted in the maxillary sinuses. No free fluid is seen in the sinuses. IMPRESSION: No acute intracranial abnormality is detected. Electronically signed by: Zac Anne MD (11/14/2017 11:28 AM) [facility]
--- NOTE | 2017-11-14 12:01 | RAD ---
CT of the abdomen without contrast, 11/14/2017: HISTORY: Fever Noncontrast scans were obtained. The images are degraded by streak artifacts. The liver is enlarged measuring 21 cm in craniocaudad extent. No hepatic mass or bile duct dilatation is seen. No dense gallstones are seen. The pancreas is unremarkable. The spleen appears to be within normal limits in size. The left kidney is surgically absent. The unopacified right kidney shows no abnormality. There is moderate aortoiliac calcific plaquing. No retroperitoneal or mesenteric adenopathy is seen. A small amount of ascites is present. This has increased since 03/09/2017. The bowel loops are not dilated. No free air is seen in the abdomen. There is moderate streaky edema in the subcutaneous soft tissues, particularly in the lower abdomen and flank regions. IMPRESSION: 1. Small volume of ascites. 2. Hepatomegaly. 3. Status post left nephrectomy. 4. Moderate subcutaneous edema, particularly in the lower abdomen. PQRS Compliance Statement: One or more of the following individualized dose reduction techniques were utilized for this examination: 1. Automated exposure control 2. Adjustment of the mA and/or kV according to patient size 3. Use of iterative reconstruction technique Electronically signed by: Zac Anne MD (11/14/2017 11:57 AM) [facility]
[2017-11-14 12:20] LABS: MONONUCLEOSIS PATIENT NEGATIVE (NEGATIVE)
[2017-11-14] MEDS ORDERED: cloNIDine HCL 0.1 MG TABLET PO PRN (12:30)
[2017-11-14] MEDS ORDERED: ALBUMIN HUMAN 25% 200 ML IV PRN (12:30)
[2017-11-14] MEDS ORDERED: LABETALOL 20 MG/4 ML DISP.SYRIN. IVP PRN (12:30)
[2017-11-14] MEDS ORDERED: IV NORMAL SALINE 1000ML BAG 1,000 ML IV PRN ×2 (12:30)
[2017-11-14] MEDS ORDERED: DIALYSIS PATIENT. MC PRN (12:30)
[2017-11-14] MEDS ORDERED: ACETAMINOPHEN 500 MG TABLET PO PRN (12:30)
[2017-11-14] MEDS ORDERED: diphenhydrAMINE 50 MG/ML VIAL IV PRN ×2 (12:30)
[2017-11-14 12:47] LABS: PROTHROMBIN TIME PATIENT 16.7 SEC (11.7-14.0)
[2017-11-14] MEDS ORDERED: METO25TA4 PO (13:25)
[2017-11-14] MEDS ORDERED: MINO100C PO (13:25)
--- NOTE | 2017-11-14 13:26 | HP ---
ADMIT DATE: 11/14/2017 CHIEF COMPLAINT: Fever. HISTORY OF PRESENT ILLNESS: The patient is a pleasant 57-year-old female who is on dialysis. She presented with a fever of 101.7. She is also tachycardic in the 120s. Surprisingly, her white count is normal and her lactic acid is normal, but she clinically seems to be septic and perhaps even volume overloaded. She has associated shortness of breath. I discussed the case with the ER. We are going to admit the patient and consult Nephrology and give her IV antibiotics. PAST MEDICAL HISTORY: End-stage renal disease, right arm graft, asthma, CHF, COPD, diabetes, hypertension, cardiomyopathy, gangrene of the right thigh, nephrectomy, left toe amputation, tobacco abuse. ALLERGIES: SULFA AND BEES. SOCIAL HISTORY: She does not drink. She quit smoking, no drinking or drugs. MEDICATIONS: Reviewed, please refer to the MRAD. REVIEW OF SYSTEMS: GENERAL: She complains of fevers and weakness. SKIN: No bruising, hair changes or rashes. EYES: No blurred, double or loss of vision. NOSE AND THROAT: No history of nosebleeds, hoarseness or sore throat. HEART: No history of palpitations, chest pain or shortness of breath on exertion. LUNGS: Denies cough, hemoptysis, wheezing or shortness of breath. GASTROINTESTINAL: Denies changes in appetite, nausea, vomiting, diarrhea or constipation. GENITOURINARY: No history of frequency, urgency, hesitancy or nocturia. NEUROLOGIC: Denies history of numbness, tingling, tremor or weakness. PSYCHIATRIC: No history of panic, anxiety or depression. ENDOCRINE: No history of heat or cold intolerance, polyuria or polydipsia. EXTREMITIES: Denies muscle weakness, joint pain, pain on walking or stiffness. PHYSICAL EXAMINATION: VITAL SIGNS: Temperature is currently 99.7, pulse 100, respirations 20, blood pressure 144/65. GENERAL: She is sleeping. She awakens but goes back to sleep. HEART: Normal S1, S2. LUNGS: Clear to auscultation. ABDOMEN: Soft and distended. EXTREMITIES: The right brachium has a graft. ENDOCRINE: No thyromegaly. LYMPHATICS: No cervical nodes. HEMATOPOIETIC: No bruising. LABORATORY DATA: White count 10, hemoglobin 13, platelets 125. Electrolytes: Potassium is 5.4, BUN 60, creatinine 5. INR 1.4. Urinalysis, trace leukocyte esterase, 1-4 white cells. Influenza testing is negative. CT of the abdomen, small amount of ascites, hepatomegaly, status post left nephrectomy, subcutaneous edema in the lower abdomen. CT of the head negative. Chest x-ray negative. ASSESSMENT AND PLAN: Clinical sepsis in a middle-aged female who has end-stage renal disease. The patient has been admitted. We will start IV antibiotics. Consult ID. Consult Nephrology. Try to resume her home meds. Frequent labs. PROGNOSIS: Guarded. BORISL Laura CHRISTOPHER DO DR: VASILIY/jenna JOB#: [id number] / [id number]
--- NOTE | 2017-11-14 13:44 | PDOC ---
Infectious Disease Note Vital Sign Vital Signs Vital Signs Date Time Temp Pulse Resp B/P (MAP) Pulse Ox O2 Delivery O2 Flow Rate FiO2 11/14/17 10:10 99.7 95 22 144/65 (91) 97 Room Air 99.7 Labs Lab Laboratory Tests Test 11/14/17 09:46 11/14/17 10:00 11/14/17 10:29 11/14/17 10:32 White Blood Count 10.7 x10^3/uL (4.0-11.0) Red Blood Count 4.02 x10^6/uL (3.50-5.40) Hemoglobin 13.0 g/dL (12.0-15.5) Hematocrit 38.8 % (36.0-47.0) Mean Corpuscular Volume 97 fL (79-100) Mean Corpuscular Hemoglobin 32 pg (25-35) Mean Corpuscular Hemoglobin Concent 33 g/dL (31-37) Red Cell Distribution Width 16.4 % (11.5-14.5) Platelet Count 125 x10^3/uL (140-400) Neutrophils (%) (Auto) 87 % (31-73) Lymphocytes (%) (Auto) 5 % (24-48) Monocytes (%) (Auto) 6 % (0-9) Eosinophils (%) (Auto) 1 % (0-3) Basophils (%) (Auto) 1 % (0-3) Neutrophils # (Auto) 9.3 x10^3uL (1.8-7.7) Lymphocytes # (Auto) 0.5 x10^3/uL (1.0-4.8) Monocytes # (Auto) 0.7 x10^3/uL (0.0-1.1) Eosinophils # (Auto) 0.1 x10^3/uL (0.0-0.7) Basophils # (Auto) 0.1 x10^3/uL (0.0-0.2) Segmented Neutrophils % 78 % (35-66) Band Neutrophils % 10 % (0-9) Lymphocytes % 2 % (24-48) Atypical Lymphocytes % (Manual) 1 % (0-0) Monocytes % 6 % (0-10) Eosinophils % 2 % (0-5) Basophils % 1 % (0-3) Platelet Estimate Decreased (ADEQUATE) Polychromasia Present Anisocytosis Slight Macrocytosis Slight Tear Drop Cells Occ Ovalocytes Few Sodium Level 138 mmol/L (136-145) Potassium Level 5.4 mmol/L (3.5-5.1) Chloride Level 98 mmol/L (98-107) Carbon Dioxide Level 28 mmol/L (21-32) Anion Gap 12 (6-14) Blood Urea Nitrogen 60 mg/dL (7-20) Creatinine 5.0 mg/dL (0.6-1.0) Estimated GFR (Cockcroft-Gault) 9.0 BUN/Creatinine Ratio 12 (6-20) Glucose Level 138 mg/dL (70-99) Lactic Acid Level 1.3 mmol/L (0.4-2.0) Calcium Level 8.6 mg/dL (8.5-10.1) Total Bilirubin 0.9 mg/dL (0.2-1.0) Aspartate Amino Transf (AST/SGOT) 19 U/L (15-37) Alanine Aminotransferase (ALT/SGPT) 19 U/L (14-59) Alkaline Phosphatase 139 U/L (46-116) Ammonia 39 mcmol/L (11-34) KX-Tgs-V-Type Natriuretic Peptide 6791 pg/mL (0-124) Total Protein 8.1 g/dL (6.4-8.2) Albumin 3.6 g/dL (3.4-5.0) Albumin/Globulin Ratio 0.8 (1.0-1.7) Heterophil Agglutinins Negative (NEGATIVE) Urine Collection Type Unknown Urine Color Yellow Urine Clarity Clear Urine pH 5.0 Urine Specific [place] 1.020 Urine Protein 100 mg/dL (NEG-TRACE) Urine Glucose (UA) Negative mg/dL (NEG) Urine Ketones (Stick) Trace mg/dL (NEG) Urine Blood Negative (NEG) Urine Nitrite Negative (NEG) Urine Bilirubin Small (NEG) Urine Urobilinogen Dipstick 1.0 mg/dL (0.2 mg/dL) Urine Leukocyte Esterase Trace (NEG) Urine RBC Occ /HPF (0-2) Urine WBC 1-4 /HPF (0-4) Urine Squamous Epithelial Cells Few /LPF Urine Amorphous Sediment Present /HPF Urine Bacteria Few /HPF (0-FEW) Urine Mucus Mod /LPF Influenza Type A Antigen Negative (NEGATIVE) Influenza Type B Antigen Negative (NEGATIVE) Glucose (Fingerstick) 135 mg/dL (70-99) Test 11/14/17 12:25 Prothrombin Time 16.7 SEC (11.7-14.0) Prothromb Time International Ratio 1.4 (0.8-1.1) Activated Partial Thromboplast Time 36 SEC (24-38) Objective Assessment Fever and chills Bandemia CKD on HD via AV fistula DM PAD H/o MRSA Plan Plan of Care vancomycin and cefepime BC Repeat labs in am Supportive care Thank you [phone] Attending Co-Sign The patient was seen on 11/14/17 and interviewed as well as examined at the bedside. The chart was reviewed. The case was discussed. Agree with the plan of care. MARIE BULLARD APRN Nov 14, 2017 13:44 DRISS TANG MD Nov 15, 2017 11:51
[2017-11-14 14:14] VITALS: BP 105/44
[2017-11-14] MEDS: VANCOMYCIN PER PHARMACY MC PRN (14:55)
[2017-11-14] MEDS: PANTOPRAZOLE 40 MG TABLET.DR. PO SCH (15:00)
[2017-11-14] MEDS: SEVELAMER CARBONATE 800 MG TABLET. PO SCH (17:51)
[2017-11-14] MEDS: CLOPIDOGREL BISULFATE 75 MG TABLET PO SCH (17:51)
[2017-11-14] MEDS: CEFEPIME HCL IV Push 1 GM VIAL. IVP SCH (17:51)
[2017-11-14] MEDS: GABAPENTIN 300 MG CAPSULE. PO SCH (17:51)
[2017-11-14 19:00] VITALS: BP 180/50
[2017-11-14] MEDS ORDERED: MINOCYCLINE HCL PO SCH (21:00)
[2017-11-14 23:00] VITALS: BP 114/53
--- NOTE | 2017-11-14 23:04 | CONS ---
DATE OF CONSULTATION: 11/14/2017 REFERRING PHYSICIAN: Dr. Olmstead. REASON FOR CONSULTATION: Possible sepsis. HISTORY OF PRESENT ILLNESS: This patient is a 57-year-old female with a history of chronic kidney disease on hemodialysis via AV fistula, diabetes mellitus, peripheral arterial disease and previous infections with MRSA. She was in her usual state of health when this morning she woke up with fevers, chills and severe body aches. On the way to the hospital, she experienced some nausea and vomiting. She had a dose of Tylenol. She had a white blood cell count of 10,000 with segs 78% and bands 10%. Blood cultures were obtained. She was dosed with vancomycin. The patient says she is feeling better. No further nausea and vomiting. The body aches have settled down. She has had a little bit of chest congestion and cough. Denies chest pain or shortness of air. Denies headache or sinus issues. PAST MEDICAL HISTORY: MRSA osteomyelitis left great toe, status post amputation in 2018. Peripheral arterial disease status post stent placement. MRSA abscess right groin status post incision and drainage, diabetes mellitus, chronic kidney disease on hemodialysis, retinopathy, congestive heart failure, coronary artery disease, hypertension, hyperlipidemia, chronic obstructive pulmonary disease, sleep apnea, Hughes's esophagus, obesity, gastroesophageal reflux disease, inguinal hernia, arthritis, depression, noncompliance, tobaccoism, hepatitis, blood transfusions. PAST SURGICAL HISTORY: AV fistula formation. Left nephrectomy. Pacemaker/AICD placement. Right hip multiple I and Ds. Hysterectomy. Amputation of left great toe secondary to MRSA osteomyelitis 03/2017. FAMILY HISTORY: Positive for cancer, diabetes, and hypertension. SOCIAL HISTORY: The patient lives at home. Current smoker. ALLERGIES: BACTRIM AND VENOM HONEY BEE. MEDICATIONS: Vancomycin. Other medications are available and have been reviewed on the APR. REVIEW OF SYSTEMS: Per HPI, otherwise all other review of systems is negative. PHYSICAL EXAMINATION: GENERAL: The patient is propped up in bed, alert, eating, no apparent distress. VITAL SIGNS: Afebrile, stable. HEENT: Normal conjunctivae. Oral mucosa is pink and moist. LUNGS: Clear to auscultation. HEART: S1, S2. No murmur appreciated. Left-sided PPM/AICD. ABDOMEN: Obese, bowel sounds active, soft, nontender. EXTREMITIES: No gross edema or cyanosis. Small wound left great toe amputation site with callused edges. There is no redness, swelling or drainage. RUE- AV fistula site unremarkable. SKIN: Warm, dry without rash. NEUROLOGIC: Alert and oriented x 3. LABORATORY DATA: Reviewed. IMAGING: Reviewed. IMPRESSION: 1. Fever and chills. 2. Bandemia. 3. Chronic kidney disease, on hemodialysis via arteriovenous fistula. 4. Diabetes. 5. Peripheral arterial disease. 6. History of methicillin-resistant Staphylococcus aureus. PLAN: Continue the vancomycin and add cefepime for Gram-negative coverage. We will follow up on the blood cultures. Repeat labs in the morning. Supportive care. Thank you, Dr. Olmstead for asking us to participate in this patient's care. Should you have further questions or concerns, please call. The patient was seen and examined and plan of care implemented by Dr. Bryce Love. DICTATED BY: Jere Virk APRN BRYCE LOVE MD DR: DANN/jenna JOB#: [id number] / [id number] [place]
[2017-11-15] MEDS: HYDROcodone/APAP 7.5/325MG 1 TAB TABLET PO PRN (01:01)
[2017-11-15 02:43] VITALS: BP 115/55
[2017-11-15] MEDS ORDERED: VANCOMYCIN RANDOM LEVEL. MC ONE (06:00)
[2017-11-15 07:00] VITALS: BP 107/49
[2017-11-15] MEDS: VANCOMYCIN PER PHARMACY MC PRN ×2 (08:10→08:15)
[2017-11-15] MEDS: BUMETANIDE 1 MG TABLET. PO SCH (08:58)
[2017-11-15] MEDS: PANTOPRAZOLE 40 MG TABLET.DR. PO SCH (08:58)
[2017-11-15] MEDS: CHOLECALCIFEROL (VITAMIN D3) 1,000 UNIT TABLET PO SCH (08:58)
[2017-11-15] MEDS: FOLIC/VIT B COMP W-C (RENAL) TABLET. PO SCH (08:58)
[2017-11-15] MEDS: TAMSULOSIN 0.4 MG CAP.ER.24H. PO SCH (08:58)
[2017-11-15] MEDS: FLUoxetine HCL 20 MG CAPSULE PO SCH (08:58)
[2017-11-15] MEDS: NICOTINE 21MG PATCH. TD SCH (08:58)
[2017-11-15] MEDS: FERROUS SULFATE 325 MG TABLET. PO SCH (08:58)
[2017-11-15] MEDS: SEVELAMER CARBONATE 800 MG TABLET. PO SCH ×3 (08:58→17:14)
[2017-11-15] MEDS: LACTOBACILLUS RHAMNOSUS GG 1 CAPSULE. PO SCH ×2 (08:58→21:25)
[2017-11-15] MEDS: GLIMEPIRIDE 2 MG TABLET. PO SCH (08:59)
[2017-11-15] MEDS: GABAPENTIN 300 MG CAPSULE. PO SCH ×2 (08:59→17:14)
[2017-11-15] MEDS: METOPROLOL TART IMMED RELEASE 25 MG TABLET. PO SCH (08:59)
[2017-11-15] MEDS ORDERED: ONDANSETRON PF 4 MG/2 ML VIAL. IV PRN (09:00)
[2017-11-15] MEDS ORDERED: ACETAMINOPHEN 500 MG TABLET PO PRN (09:00)
[2017-11-15] MEDS ORDERED: ACETAMINOPHEN/CODEINE 300/30MG TABLET. PO PRN (09:00)
[2017-11-15] MEDS ORDERED: ONDANSETRON ODT 4 MG TAB.RAPDIS. PO PRN (09:00)
[2017-11-15] MEDS ORDERED: cloNIDine HCL 0.1 MG TABLET PO PRN (09:00)
[2017-11-15] MEDS ORDERED: DEXTROSE 50% 25 GM / 50ML DISP.SYRIN. IV PRN (09:00)
--- NOTE | 2017-11-15 10:35 | PDOC ---
Infectious Disease Note Subjective Subjective This morning patient noticed her left leg was red and sore. Another episode of N/V last night O2 supplementation 2L. Less congestion and cough Tmax 100.4 No further chills/shakes/body aches ROS ROS per HPI otherwise negative Vital Sign Vital Signs Vital Signs Date Time Temp Pulse Resp B/P (MAP) Pulse Ox O2 Delivery O2 Flow Rate FiO2 11/15/17 08:59 57 140/88 11/15/17 02:43 99.7 20 94 Nasal Cannula 99.7 11/14/17 20:00 2.0 Physical Exam PHYSICAL EXAM GENERAL: Sitting on the side of the bed, alert, relaxed appearance HEENT: Normal conjunctivae. Oral mucosa is pink and moist. LUNGS: Clear to auscultation. HEART: S1, S2. No murmur appreciated. Left-sided PPM/AICD. ABDOMEN: Obese, bowel sounds active, soft, nontender. EXTREMITIES: No gross edema or cyanosis. Small wound left great toe amputation site with callused edges. There is no redness, swelling or drainage. RUE- AV fistula site unremarkable. Medial left thigh down past knee is erythematous and warm. SKIN: Warm, dry without rash. NEUROLOGIC: Alert and oriented x 3. Labs Lab Laboratory Tests Test 11/14/17 10:29 11/14/17 10:32 11/14/17 12:25 11/14/17 21:04 Influenza Type A Antigen Negative (NEGATIVE) Influenza Type B Antigen Negative (NEGATIVE) Glucose (Fingerstick) 135 mg/dL (70-99) 106 mg/dL (70-99) Prothrombin Time 16.7 SEC (11.7-14.0) Prothromb Time International Ratio 1.4 (0.8-1.1) Activated Partial Thromboplast Time 36 SEC (24-38) Test 11/15/17 05:56 Random Vancomycin Level 18.2 mcg/mL Micro 11/14. BLOOD CULTURE Final GRAM POSITIVE COCCI 1 SET DRAWN, 2 OF 2 POSITIVE Objective Assessment GPS bacteremia POA from 11/14. (2 of 2 bottles) New-onset cellulitis of left leg Fever and chills - improving Bandemia CKD on HD via AV fistula DM PAD H/o MRSA N/V Plan Plan of Care vancomycin and cefepime Random trough 18.2 Awaiting GPC ID Repeat BC CBC in am Monitor labs/temp Supportive care Attending Co-Sign The patient was seen and interviewed as well as examined at the bedside. The chart was reviewed. The case was discussed. Agree with the plan of care. MARIE BULLARD APRN Nov 15, 2017 10:35 DRISS TANG MD Nov 15, 2017 11:51
[2017-11-15 11:00] VITALS: BP 108/51
--- NOTE | 2017-11-15 11:58 | PDOC ---
PROGRESS NOTES Chief Complaint Chief Complaint LEft leg cellulitis 1. Fever and chills. 2. Bandemia. 3. Chronic kidney disease, on hemodialysis via arteriovenous fistula. 4. Diabetes. 5. Peripheral arterial disease. 6. History of methicillin-resistant Staphylococcus aureus. 7. Thrombocytopenia in the background of sepsis 8. SEPSIS no organ dysfcn History of Present Illness History of Present Illness Feels unwell, but unable to pinpoint anything Repeat labs today are pending or at least label coder is starting to get it right now Left leg redness seems to be better, no fluctuant fluid, tender to touch moderate palpation ID has started on vancomycin, history of MRSA Low-grade temperatures persist throughout the night Tachycardic WBC 12 Platelets 1 25, Mildly Low Plan: Follow ID recs Follow cultures MOnitor that leukocytosis and low platelets home Meds have been reconciled Vitals Vitals Vital Signs Date Time Temp Pulse Resp B/P (MAP) Pulse Ox O2 Delivery O2 Flow Rate FiO2 11/15/17 08:59 57 140/88 11/15/17 08:00 Nasal Cannula 2.0 11/15/17 02:43 99.7 20 94 99.7 Physical Exam Physical Exam GENERAL: Sitting on the side of the bed, alert, relaxed appearance HEENT: Normal conjunctivae. Oral mucosa is pink and moist. LUNGS: Clear to auscultation. HEART: S1, S2. No murmur appreciated. Left-sided PPM/AICD. ABDOMEN: Obese, bowel sounds active, soft, nontender. EXTREMITIES: No gross edema or cyanosis. Small wound left great toe amputation site with callused edges. There is no redness, swelling or drainage. RUE- AV fistula site unremarkable. Medial left thigh down past knee is erythematous and warm. SKIN: Warm, dry without rash. NEUROLOGIC: Alert and oriented x 3. General: Alert, Oriented X3, Cooperative, No acute distress Heart: Regular rate, No murmurs Lungs: Clear, Other Abdomen: Normal bowel sounds, Soft, No tenderness Extremities: No clubbing, No cyanosis, No edema Skin: Other (leg left redness, mild touch on palpation, no open skin lesions, no fluctuant fluid, slightly warm to touch) Labs LABS Laboratory Tests Test 11/14/17 12:25 11/14/17 21:04 11/15/17 05:56 11/15/17 11:42 Prothrombin Time 16.7 SEC (11.7-14.0) Prothromb Time International Ratio 1.4 (0.8-1.1) Activated Partial Thromboplast Time 36 SEC (24-38) Glucose (Fingerstick) 106 mg/dL (70-99) 139 mg/dL (70-99) Random Vancomycin Level 18.2 mcg/mL Comment Review of Relevant I have reviewed the following items nelda (where applicable) has been applied. Labs Laboratory Tests Test 11/14/17 09:46 11/14/17 10:00 11/14/17 10:29 11/14/17 10:32 White Blood Count 10.7 x10^3/uL (4.0-11.0) Red Blood Count 4.02 x10^6/uL (3.50-5.40) Hemoglobin 13.0 g/dL (12.0-15.5) Hematocrit 38.8 % (36.0-47.0) Mean Corpuscular Volume 97 fL (79-100) Mean Corpuscular Hemoglobin 32 pg (25-35) Mean Corpuscular Hemoglobin Concent 33 g/dL (31-37) Red Cell Distribution Width 16.4 % (11.5-14.5) Platelet Count 125 x10^3/uL (140-400) Neutrophils (%) (Auto) 87 % (31-73) Lymphocytes (%) (Auto) 5 % (24-48) Monocytes (%) (Auto) 6 % (0-9) Eosinophils (%) (Auto) 1 % (0-3) Basophils (%) (Auto) 1 % (0-3) Neutrophils # (Auto) 9.3 x10^3uL (1.8-7.7) Lymphocytes # (Auto) 0.5 x10^3/uL (1.0-4.8) Monocytes # (Auto) 0.7 x10^3/uL (0.0-1.1) Eosinophils # (Auto) 0.1 x10^3/uL (0.0-0.7) Basophils # (Auto) 0.1 x10^3/uL (0.0-0.2) Segmented Neutrophils % 78 % (35-66) Band Neutrophils % 10 % (0-9) Lymphocytes % 2 % (24-48) Atypical Lymphocytes % (Manual) 1 % (0-0) Monocytes % 6 % (0-10) Eosinophils % 2 % (0-5) Basophils % 1 % (0-3) Platelet Estimate Decreased (ADEQUATE) Polychromasia Present Anisocytosis Slight Macrocytosis Slight Tear Drop Cells Occ Ovalocytes Few Sodium Level 138 mmol/L (136-145) Potassium Level 5.4 mmol/L (3.5-5.1) Chloride Level 98 mmol/L (98-107) Carbon Dioxide Level 28 mmol/L (21-32) Anion Gap 12 (6-14) Blood Urea Nitrogen 60 mg/dL (7-20) Creatinine 5.0 mg/dL (0.6-1.0) Estimated GFR (Cockcroft-Gault) 9.0 BUN/Creatinine Ratio 12 (6-20) Glucose Level 138 mg/dL (70-99) Lactic Acid Level 1.3 mmol/L (0.4-2.0) Calcium Level 8.6 mg/dL (8.5-10.1) Total Bilirubin 0.9 mg/dL (0.2-1.0) Aspartate Amino Transf (AST/SGOT) 19 U/L (15-37) Alanine Aminotransferase (ALT/SGPT) 19 U/L (14-59) Alkaline Phosphatase 139 U/L (46-116) Ammonia 39 mcmol/L (11-34) AN-Gkn-C-Type Natriuretic Peptide 6791 pg/mL (0-124) Total Protein 8.1 g/dL (6.4-8.2) Albumin 3.6 g/dL (3.4-5.0) Albumin/Globulin Ratio 0.8 (1.0-1.7) Heterophil Agglutinins Negative (NEGATIVE) Urine Collection Type Unknown Urine Color Yellow Urine Clarity Clear Urine pH 5.0 Urine Specific [place] 1.020 Urine Protein 100 mg/dL (NEG-TRACE) Urine Glucose (UA) Negative mg/dL (NEG) Urine Ketones (Stick) Trace mg/dL (NEG) Urine Blood Negative (NEG) Urine Nitrite Negative (NEG) Urine Bilirubin Small (NEG) Urine Urobilinogen Dipstick 1.0 mg/dL (0.2 mg/dL) Urine Leukocyte Esterase Trace (NEG) Urine RBC Occ /HPF (0-2) Urine WBC 1-4 /HPF (0-4) Urine Squamous Epithelial Cells Few /LPF Urine Amorphous Sediment Present /HPF Urine Bacteria Few /HPF (0-FEW) Urine Mucus Mod /LPF Influenza Type A Antigen Negative (NEGATIVE) Influenza Type B Antigen Negative (NEGATIVE) Glucose (Fingerstick) 135 mg/dL (70-99) Test 11/14/17 12:25 11/14/17 21:04 11/15/17 05:56 11/15/17 11:42 Prothrombin Time 16.7 SEC (11.7-14.0) Prothromb Time International Ratio 1.4 (0.8-1.1) Activated Partial Thromboplast Time 36 SEC (24-38) Glucose (Fingerstick) 106 mg/dL (70-99) 139 mg/dL (70-99) Random Vancomycin Level 18.2 mcg/mL Laboratory Tests Test 11/14/17 12:25 11/14/17 21:04 11/15/17 05:56 11/15/17 11:42 Prothrombin Time 16.7 SEC (11.7-14.0) Prothromb Time International Ratio 1.4 (0.8-1.1) Activated Partial Thromboplast Time 36 SEC (24-38) Glucose (Fingerstick) 106 mg/dL (70-99) 139 mg/dL (70-99) Random Vancomycin Level 18.2 mcg/mL Microbiology 11/14/17 Blood Culture - Final, Complete Medications Current Medications Piperacillin Sod/ Tazobactam Sod 3.375 gm/Sodium Chloride 50 ml @ 100 mls/hr 1X ONCE IV Last administered on 11/14/17at 09:56; Start 11/14/17 at 09:45; Stop 11/14/17 at 10:14; Status DC Fentanyl Citrate (Fentanyl 2ml Vial) 50 mcg 1X ONCE IV Last administered on at 09:57; Start 11/14/17 at 10:00; Stop 11/14/17 at 10:01; Status DC Vancomycin HCl 1.25 gm/Sodium Chloride 250 ml @ 166.667 mls/hr 1X ONCE IV ; Start 11/14/17 at 10:30; Stop 11/14/17 at 11:59; Status UNV Acetaminophen (Tylenol) 1,000 mg 1X ONCE PO Last administered on 11/14/17at 10: 34; Start 11/14/17 at 10:30; Stop 11/14/17 at 10:32; Status DC Albuterol Sulfate (Ventolin Neb Soln) 10 mg 1X ONCE CONT NEB ; Start 11/14/17 at 10:30; Stop 11/14/17 at 10:32; Status DC Dextrose (Dextrose 50%-Water Syringe) 25 gm 1X ONCE IV Last administered on at 11:27; Start 11/14/17 at 10:30; Stop 11/14/17 at 10:32; Status DC Insulin Human Regular (HumuLIN R VIAL) 10 unit 1X ONCE IV Last administered on 11/14/17at 11:28; Start 11/14/17 at 10:30; Stop 11/14/17 at 10:32; Status DC Vancomycin HCl 2 gm/Sodium Chloride 500 ml @ 250 mls/hr 1X ONCE IV Last administered on 11/14/17at 10:43; Start 11/14/17 at 10:45; Stop 11/14/17 at 12:44 ; Status DC Sodium Chloride 1,000 ml @ 1,000 mls/hr Q1H PRN IV hypotension; Start 11/14/17 at 12:30; Stop 11/14/17 at 18:29; Status DC Albumin Human 200 ml @ 200 mls/hr 1X PRN PRN IV Hypotension; Start 11/14/17 at 12:30; Stop 11/14/17 at 18:29; Status DC Acetaminophen (Tylenol) 500 mg 1X PRN PRN PO MILD PAIN / TEMP; Start 11/14/17 at 12:30; Stop 11/15/17 at 12:29 Diphenhydramine HCl (Benadryl) 25 mg 1X PRN PRN IV ITCHING; Start 11/14/17 at 12:30; Stop 11/15/17 at 12:29 Diphenhydramine HCl (Benadryl) 25 mg 1X PRN PRN IV ITCHING; Start 11/14/17 at 12:30; Stop 11/15/17 at 12:29 Labetalol HCl (Normodyne Iv Push) 10 mg PRN Q1HR PRN IVP SBP > 180; Start 11/14 at 12:30; Stop 11/15/17 at 12:29 Clonidine HCl (Catapres) 0.1 mg 1X PRN PRN PO SBP > 180; Start 11/14/17 at 12: 30; Stop 11/15/17 at 12:29 Sodium Chloride 1,000 ml @ 400 mls/hr Q2H30M PRN IV PATENCY; Start 11/14/17 at 12:30; Stop 11/15/17 at 00:29; Status DC Info (PHARMACY MONITORING -- do not chart) 1 each PRN DAILY PRN MC SEE COMMENTS ; Start 11/14/17 at 12:30 Vitamin D (Vitamin D3) 1,000 unit DAILY PO Last administered on 11/15/17at 08:58 ; Start 11/15/17 at 09:00 Ferrous Sulfate (Feosol) 325 mg DAILY PO Last administered on 11/15/17at 08:58; Start 11/15/17 at 09:00 Vitamin B Complex/ Vitamin C (Jaz-Jose) 1 tab DAILY PO Last administered on at 08:58; Start 11/15/17 at 09:00 Glimepiride (Amaryl) 2 mg DAILYWBKFT PO Last administered on 11/15/17at 08:59; Start 11/15/17 at 08:00 Acetaminophen/ Hydrocodone Bitart (Lortab 7.5/325) 1 tab PRN Q4HRS PRN PO PAIN SEVERE Last administered on 11/15/17at 01:01; Start 11/14/17 at 15:00 Metoprolol Tartrate (Lopressor) 12.5 mg SuMoWeFr@0900 PO Last administered on at 08:59; Start 11/15/17 at 09:00 Pantoprazole Sodium (Protonix) 40 mg DAILYAC PO Last administered on 11/15/17at 08:58; Start 11/14/17 at 15:00 Sevelamer Carbonate (Renvela) 800 mg TIDWMEALS PO Last administered on at 08:58; Start 11/14/17 at 17:00 Tamsulosin HCl (Flomax) 0.4 mg DAILY PO Last administered on 11/15/17at 08:58; Start 11/15/17 at 09:00 Bumetanide (Bumex) 2 mg DAILY PO Last administered on 11/15/17at 08:58; Start at 09:00 Gabapentin (Neurontin) 600 mg [id number] PO Last administered on 11/15/17at 08:59; Start 11/14/17 at 18:00 Non-Formulary Medication (Minocycline Hcl ) 100 cap BID PO ; Start 11/14/17 at 21:00; Stop 11/14/17 at 21:00; Status DC Cefepime HCl (Maxipime) 1 gm Q24H IVP Last administered on 11/14/17at 17:51; Start 11/14/17 at 16:00 Vancomycin HCl (Vancomycin Random Level) 1 each 1X ONCE MC Last administered on 11/15/17at 06:00; Start 11/15/17 at 06:00; Stop 11/15/17 at 06:01; Status DC Fluoxetine HCl (PROzac) 20 mg DAILY PO Last administered on 11/15/17at 08:58; Start 11/15/17 at 09:00 Clopidogrel Bisulfate (Plavix) 75 mg DAILYWSUP PO Last administered on at 17:51; Start 11/14/17 at 17:00 Nicotine (Nicoderm Cq 21mg) 1 patch DAILY TD Last administered on 11/15/17at 08: 58; Start 11/15/17 at 09:00 Vancomycin HCl (Vanco Per Pharmacy) 1 each PRN DAILY PRN MC SEE COMMENTS Last administered on 11/15/17at 08:15; Start 11/14/17 at 15:00 Influenza Virus Vaccine (Afluria Trivalent 4006-0293 Syringe) 0.5 ml ONCE ONCE VAX IM ; Start 11/14/17 at 16:00; Stop 11/14/17 at 16:17; Status DC Lactobacillus Rhamnosus (Culturelle) 1 cap BID PO Last administered on at 08:58; Start 11/15/17 at 09:00 Vancomycin HCl 500 mg/Sodium Chloride 100 ml @ 100 mls/hr QTUTHSA IV ; Start at 16:00 Ondansetron HCl (Zofran) 4 mg PRN Q6HRS PRN IV NAUSEA/VOMITING; Start 11/15/17 at 09:00 Ondansetron HCl (Zofran Odt) 4 mg PRN Q6HRS PRN PO NAUSEA/VOMITING; Start 11/15 at 09:00 Acetaminophen (Tylenol) 500 mg PRN Q6HRS PRN PO MILD PAIN / TEMP; Start at 09:00 Acetaminophen/ Codeine Phosphate (Tylenol #3) 1 tab PRN Q6HRS PRN PO PAIN MODERATE; Start 11/15/17 at 09:00 Insulin Human Lispro (HumaLOG) 0-9 UNITS TIDWMEALS SQ ; Start 11/15/17 at 12:00 Dextrose (Dextrose 50%-Water Syringe) 12.5 gm PRN Q15MIN PRN IV SEE COMMENTS; Start 11/15/17 at 09:00 Clonidine HCl (Catapres) 0.1 mg PRN Q1HR PRN PO HYPERTENSION, SEE COMMENTS; Start 11/15/17 at 09:00 Active Scripts Active Hydrocodone-Apap 7.5-325 (Hydrocodone Bit/Acetaminophen) 1 Each Tablet 1 Tab PO PRN Q4HRS PRN 14 Days Clopidogrel (Clopidogrel Bisulfate) 75 Mg Tablet 75 Mg PO DAILYWBKFT 30 Days Pantoprazole Sodium 40 Mg Tablet.dr 40 Mg PO DAILYAC 30 Days Amaryl (Glimepiride) 2 Mg Tablet 2 Mg PO DAILYWBKFT 30 Days Reported Minocycline Hcl 100 Mg Capsule 100 Cap PO BID Metoprolol Tartrate 25 Mg Tablet 12.5 Mg PO Vitamin D3 (Cholecalciferol (Vitamin D3)) 1,000 Unit Tablet 1 Tab PO DAILY Gabapentin 600 Mg Tablet 600 Mg PO [id number] Jaz-Jose Tablet (Folic Acid/Vitamin B Comp W-C) 0.8 Mg Tablet 0.8 Mg PO DAILY Ferrous Sulfate 325 Mg Tablet 1 Tab PO DAILY Tamsulosin Hcl 0.4 Mg Cap.er.24h 0.4 Mg PO DAILY Fluoxetine Hcl 20 Mg Capsule 20 Mg PO DAILY Renvela (Sevelamer Carbonate) 800 Mg Tablet 800 Mg PO TIDWMEALS with snacks between meals Bumetanide 2 Mg Tablet 1 Tab PO DAILY Vitals/I & O Vital Sign - Last 24 Hours 11/14/17 11/14/17 11/14/17 11/14/17 14:14 14:25 19:00 20:00 Temp 99.5 100.4 99.5 100.4 Pulse 91 46 Resp 18 16 B/P (MAP) 105/44 (64) 180/50 (93) Pulse Ox 92 91 O2 Delivery Room Air Nasal Cannula Room Air Nasal Cannula O2 Flow Rate 2.0 2.0 11/14/17 11/15/17 11/15/17 11/15/17 23:00 01:01 02:43 08:00 Temp 99.9 99.7 99.9 99.7 Pulse 107 98 Resp 18 20 20 B/P (MAP) 114/53 (73) 115/55 (75) Pulse Ox 90 94 O2 Delivery Nasal Cannula Nasal Cannula Nasal Cannula Nasal Cannula O2 Flow Rate 2.0 11/15/17 08:59 Pulse 57 B/P (MAP) 140/88 Intake and Output 11/14/17 11/14/17 11/15/17 15:00 23:00 07:00 Intake Total 0 ml Output Total 0 ml Balance 0 ml MILVIA CARRASCO MD Nov 15, 2017 11:58
[2017-11-15] MEDS: INSULIN LISPRO 300 UNITS/3 ML INSULN.PEN. SQ SCH ×2 (12:00→17:00)
[2017-11-15 15:00] VITALS: BP 104/52
[2017-11-15] MEDS: CLOPIDOGREL BISULFATE 75 MG TABLET PO SCH (17:14)
[2017-11-15] MEDS: CEFEPIME HCL IV Push 1 GM VIAL. IVP SCH (17:15)
[2017-11-15 19:00] VITALS: BP 114/45
--- NOTE | 2017-11-15 19:02 | CONS ---
DATE OF CONSULTATION: 11/15/2017 REASON FOR CONSULTATION: Renal failure. HISTORY OF PRESENT ILLNESS: A 57-year-old female with end-stage renal disease, which is hemodialysis dependent in the setting of diabetic nephropathy. The patient presented to the hospital with fever of 101.7. She has erythema in the left inner thigh area. She will need ongoing assistance in management of end-stage renal disease and associated comorbidities. PAST MEDICAL HISTORY: Diabetes mellitus, diabetic nephropathy, end-stage renal disease, hemodialysis dependent; hypertension, chronic kidney disease, secondary hyperparathyroidism, renal disease, gangrene of the right thigh, nephrectomy, toe amputation, left; tobacco use, congestive cardiomyopathy, right arm graft, asthma. ALLERGIES: SULFAMETHOXAZOLE, TRIMETHOPRIM, HONEY BEE VENOM. MEDICATIONS: Noted. FAMILY HISTORY: Noncontributory. SOCIAL HISTORY: The patient resides with assistance. Nondrinker, nonsmoker at this time, previously did smoke. REVIEW OF SYSTEMS: No headache, sinus problem, nasal drainage, epistaxis, change in vision or hearing, difficulty swallowing. She has had fever, no chills. No cough, sputum production or hemoptysis. No chest pain, shortness of breath, PND, orthopnea, dyspnea on exertion. No abdominal pain. No nausea, vomiting, diarrhea, seizures or malignancies. She has fatigue. PHYSICAL EXAMINATION: GENERAL APPEARANCE: The patient is awake, conversant. HEENT: Sallow complexion, otherwise clear. NECK: No increased JVD. No thyromegaly, mass or adenopathy. LUNGS: Clear. CARDIAC: Without S3 or rub. ABDOMEN: Soft, nontender, no bruits. EXTREMITIES: 1+ pretibial edema bilaterally. She has erythema in the left inner thigh. Toe amputation of left foot. NEUROLOGIC: Nonfocal localizing. PSYCHIATRIC: Fair attention to detail, appropriate affect. LABORATORY DATA: White count 10 with hemoglobin of 13, hematocrit 38.8. Potassium 5.4, CO2 of 28, creatinine 5. IMPRESSION: 1. End-stage renal disease secondary to diabetic nephropathy. 2. Left lower extremity cellulitis. RECOMMENDATIONS: 1. Antibiotics pending culture results. 2. Ongoing dialysis for fluid balance and solute clearance. 3. Epogen for anemia of chronic kidney disease. We will follow. ANA DONALDSON MD DR: JOSE ARMANDO/jenna JOB#: [id number] / [id number]
[2017-11-15 23:00] VITALS: BP 96/54
[2017-11-16] MEDS: HYDROcodone/APAP 7.5/325MG 1 TAB TABLET PO PRN ×2 (02:56→23:30)
[2017-11-16 03:00] VITALS: BP 118/65
[2017-11-16 07:00] VITALS: BP 119/62
[2017-11-16] MEDS: INSULIN LISPRO 300 UNITS/3 ML INSULN.PEN. SQ SCH ×3 (08:00→17:00)
[2017-11-16] MEDS: SEVELAMER CARBONATE 800 MG TABLET. PO SCH ×3 (08:04→17:15)
[2017-11-16] MEDS: GLIMEPIRIDE 2 MG TABLET. PO SCH (08:05)
[2017-11-16] MEDS: PANTOPRAZOLE 40 MG TABLET.DR. PO SCH (08:05)
[2017-11-16 09:05] LABS: BASO % 1 % (0-3); EOS # 0.2 x10^3/uL (0.0-0.7); EOS % 4 % (0-3); HEMATOCRIT 34.1 % (36.0-47.0); HEMOGLOBIN 11.3 g/dL (12.0-15.5); LYMPH % 20 % (24-48); MEAN CORPUSCULAR HEMOGLOBIN 32 pg (25-35); MEAN CORPUSCULAR HGB CONC 33 g/dL (31-37); MEAN CORPUSCULAR VOLUME 97 fL (79-100); MONO # 0.5 x10^3/uL (0.0-1.1); MONO % 9 % (0-9); NEUT # 3.3 x10^3uL (1.8-7.7); NEUT % 66 % (31-73); PLATELET COUNT 79 x10^3/uL (140-400); RED BLOOD COUNT 3.51 x10^6/uL (3.50-5.40); RED CELL DISTRIBUTION WIDTH 16.8 % (11.5-14.5); WHITE BLOOD COUNT 5.1 x10^3/uL (4.0-11.0)
--- NOTE | 2017-11-16 09:05 | PDOC ---
Infectious Disease Note Subjective: Subjective Pt says LLE is less sore and painful today compared to yesterday nausea is improving Less congestion and cough T pattern is improving no abdominal pain or groin pain ROS: ROS Negative otherwise Vital Signs: Vital Signs Vital Signs Date Time Temp Pulse Resp B/P (MAP) Pulse Ox O2 Delivery O2 Flow Rate FiO2 11/16/17 07:00 98.0 74 18 119/62 (81) 97 2l 98.0 11/16/17 02:56 2.0 Physical Exam: PHYSICAL EXAM GENERAL: AXOXO3 male in nad HEENT: Normal conjunctivae. Oral mucosa is pink and moist. LUNGS: Clear to auscultation. HEART: S1, S2. No murmur appreciated. Left-sided PPM/AICD. ABDOMEN: Obese, bowel sounds active, soft, nontender. EXTREMITIES: No gross edema or cyanosis. Small wound left great toe amputation site with callused edges. There is no redness, swelling or drainage. RUE- AV fistula site unremarkable. Medial left thigh down past knee is erythematous and warm.receding from previous markings no thigh or groin lesions SKIN: Warm, dry without rash. NEUROLOGIC: Alert and oriented x 3. Medications: Inpatient Meds: Current Medications Medications (Trade) Dose Ordered Sig/Susan Start Time Stop Time Status Last Admin Dose Admin Acetaminophen (Tylenol) 500 mg PRN Q6HRS PRN 11/15/17 09:00 Acetaminophen/ Codeine Phosphate (Tylenol #3) 1 tab PRN Q6HRS PRN 11/15/17 09:00 Acetaminophen/ Hydrocodone Bitart (Lortab 7.5/325) 1 tab PRN Q4HRS PRN 11/14/17 15:00 11/16/17 02:56 1 TAB Albumin Human 200 ml @ 200 mls/hr 1X PRN PRN 11/14/17 12:30 11/14/17 18:29 DC Albuterol Sulfate (Ventolin Neb Soln) 10 mg 1X ONCE 11/14/17 10:30 11/14/17 10:32 DC Bumetanide (Bumex) 2 mg DAILY 11/15/17 09:00 11/15/17 08:58 2 MG Cefepime HCl (Maxipime) 1 gm Q24H 11/14/17 16:00 11/15/17 17:15 1 GM Clonidine HCl (Catapres) 0.1 mg PRN Q1HR PRN 11/15/17 09:00 Clopidogrel Bisulfate (Plavix) 75 mg DAILYWSUP 11/14/17 17:00 11/15/17 17:14 75 MG Dextrose (Dextrose 50%-Water Syringe) 12.5 gm PRN Q15MIN PRN 11/15/17 09:00 Diphenhydramine HCl (Benadryl) 25 mg 1X PRN PRN 11/14/17 12:30 11/15/17 12:29 DC Fentanyl Citrate (Fentanyl 2ml Vial) 50 mcg 1X ONCE 11/14/17 10:00 11/14/17 10:01 DC 11/14/17 09:57 50 MCG Ferrous Sulfate (Feosol) 325 mg DAILY 11/15/17 09:00 11/15/17 08:58 325 MG Fluoxetine HCl (PROzac) 20 mg DAILY 11/15/17 09:00 11/15/17 08:58 20 MG Gabapentin (Neurontin) 600 mg DAILY 11/16/17 09:00 Glimepiride (Amaryl) 2 mg DAILYWBKFT 11/15/17 08:00 11/16/17 08:05 2 MG Influenza Virus Vaccine (Afluria Trivalent 2418-7309 Syringe) 0.5 ml ONCE ONCE 11/14/17 16:00 11/14/17 16:17 DC Info (PHARMACY MONITORING -- do not chart) 1 each PRN DAILY PRN 11/14/17 12:30 Insulin Human Lispro (HumaLOG) 0-9 UNITS TIDWMEALS 11/15/17 12:00 Insulin Human Regular (HumuLIN R VIAL) 10 unit 1X ONCE 11/14/17 10:30 11/14/17 10:32 DC 11/14/17 11:28 10 UNIT Labetalol HCl (Normodyne Iv Push) 10 mg PRN Q1HR PRN 11/14/17 12:30 11/15/17 12:29 DC Lactobacillus Rhamnosus (Culturelle) 1 cap BID 11/15/17 09:00 11/15/17 21:25 1 CAP Metoprolol Tartrate (Lopressor) 12.5 mg SuMoWeFr@0900 11/15/17 09:00 11/15/17 08:59 12.5 MG Nicotine (Nicoderm Cq 21mg) 1 patch DAILY 11/15/17 09:00 11/15/17 08:58 1 PATCH Non-Formulary Medication (Minocycline Hcl ) 100 cap BID 11/14/17 21:00 11/14/17 21:00 DC Ondansetron HCl (Zofran Odt) 4 mg PRN Q6HRS PRN 11/15/17 09:00 Ondansetron HCl (Zofran) 4 mg PRN Q6HRS PRN 11/15/17 09:00 Pantoprazole Sodium (Protonix) 40 mg DAILYAC 11/14/17 15:00 11/16/17 08:05 40 MG Piperacillin Sod/ Tazobactam Sod 3.375 gm/Sodium Chloride 50 ml @ 100 mls/hr 1X ONCE 11/14/17 09:45 11/14/17 10:14 DC 11/14/17 09:56 100 MLS/HR Sevelamer Carbonate (Renvela) 800 mg TIDWMEALS 11/14/17 17:00 11/16/17 08:04 800 MG Sodium Chloride 1,000 ml @ 400 mls/hr Q2H30M PRN 11/14/17 12:30 11/15/17 00:29 DC Tamsulosin HCl (Flomax) 0.4 mg DAILY 11/15/17 09:00 11/15/17 08:58 0.4 MG Vancomycin HCl (Vanco Per Pharmacy) 1 each PRN DAILY PRN 11/14/17 15:00 11/15/17 08:15 1 EACH Vancomycin HCl (Vancomycin Random Level) 1 each 1X ONCE 11/15/17 06:00 11/15/17 06:01 DC 11/15/17 06:00 1 EACH Vancomycin HCl 1.25 gm/Sodium Chloride 250 ml @ 166.667 mls/hr 1X ONCE 11/14/17 10:30 11/14/17 11:59 UNV Vancomycin HCl 500 mg/Sodium Chloride 100 ml @ 100 mls/hr QTUTHSA 11/17/17 16:00 Vancomycin HCl 2 gm/Sodium Chloride 500 ml @ 250 mls/hr 1X ONCE 11/14/17 10:45 11/14/17 12:44 DC 11/14/17 10:43 250 MLS/HR Vitamin B Complex/ Vitamin C (Jaz-Jose) 1 tab DAILY 11/15/17 09:00 11/15/17 08:58 1 TAB Vitamin D (Vitamin D3) 1,000 unit DAILY 11/15/17 09:00 11/15/17 08:58 1,000 UNIT Labs: Lab Laboratory Tests Test 11/15/17 11:42 11/15/17 16:46 11/15/17 20:14 11/16/17 07:29 Glucose (Fingerstick) 139 mg/dL (70-99) 83 mg/dL (70-99) 147 mg/dL (70-99) 79 mg/dL (70-99) Micro RUN DATE: 11/15/17 PAGE 1 RUN TIME: 815 [facility] [address] [place] [address] Jamie Sarah M.D., Electronic Engineering Technician PATIENT: CHARLIE YBARRA ACCT: [id number] LOC: [address] [place] [address] U : [id number] AGE/SX: 57/F ROOM: 578 REG : 11/14/[address]: POONAM CHRISTOPHER III, DO : 1960 BED: 1 DIS : STATUS: ADM IN TLOC: SPEC #: [id number] KAYLI: 11/14/17 STATUS: COMP REQ #: [id number] RECD: 11/14/[address]: LOVELY PAYNA MD SOURCE: BLOOD ENTR: 11/14/[address]: PAULY AU MD [facility]: ORDERED: BCULT Procedure Result BLOOD CULTURE Final GRAM POSITIVE COCCI 1 SET DRAWN, 2 OF 2 POSITIVE CALLED TO TABATHA JOEL RN IN 5 S BY Lamar WALLER,11/15/17,08 SPECIMEN SENDING TO [place] FOR FURTHER WORK UP Objective: Assessment: GPS bacteremia POA from 11/14. (2 of 2 bottles) ID and RICHARD pending New-onset cellulitis of left leg Fever and chills - improving Bandemia CKD on HD via AV fistula DM PAD H/o MRSA N/V Plan: Plan of Care vancomycin and cefepime Random trough 18.2 Awaiting GPC ID f/u labs and cults Monitor labs/temp Supportive care QUINN TANG MD Nov 16, 2017 09:05
[2017-11-16] MEDS: FLUoxetine HCL 20 MG CAPSULE PO SCH (09:27)
[2017-11-16] MEDS: NICOTINE 21MG PATCH. TD SCH (09:27)
[2017-11-16] MEDS: CHOLECALCIFEROL (VITAMIN D3) 1,000 UNIT TABLET PO SCH (09:28)
[2017-11-16] MEDS: GABAPENTIN 300 MG CAPSULE. PO SCH (09:28)
[2017-11-16] MEDS: FOLIC/VIT B COMP W-C (RENAL) TABLET. PO SCH (09:28)
[2017-11-16] MEDS: FERROUS SULFATE 325 MG TABLET. PO SCH (09:28)
[2017-11-16] MEDS: TAMSULOSIN 0.4 MG CAP.ER.24H. PO SCH (09:28)
[2017-11-16] MEDS: LACTOBACILLUS RHAMNOSUS GG 1 CAPSULE. PO SCH ×2 (09:28→20:44)
[2017-11-16] MEDS: BUMETANIDE 1 MG TABLET. PO SCH (09:28)
[2017-11-16] MEDS: METOPROLOL TART IMMED RELEASE 25 MG TABLET. PO SCH (09:29)
--- NOTE | 2017-11-16 09:32 | PDOC ---
PROGRESS NOTES Chief Complaint Chief Complaint LEft leg cellulitis 1. Fever and chills. 2. Bandemia. 3. Chronic kidney disease, on hemodialysis via arteriovenous fistula. 4. Diabetes. 5. Peripheral arterial disease. 6. History of methicillin-resistant Staphylococcus aureus. 7. Thrombocytopenia in the background of sepsis 8. SEPSIS no organ dysfcn History of Present Illness History of Present Illness She has no complaints to hi IV abx per ID, history of past sepsis or MRSA No fever, nontoxic-appearing Plan: CPM, follow ID recs, IV antibiotics Follow cultures Vitals Vitals Vital Signs Date Time Temp Pulse Resp B/P (MAP) Pulse Ox O2 Delivery O2 Flow Rate FiO2 11/16/17 09:29 74 119/62 11/16/17 07:00 98.0 18 97 2l 98.0 11/16/17 02:56 2.0 Physical Exam Physical Exam GENERAL: Sitting on the side of the bed, alert, relaxed appearance HEENT: Normal conjunctivae. Oral mucosa is pink and moist. LUNGS: Clear to auscultation. HEART: S1, S2. No murmur appreciated. Left-sided PPM/AICD. ABDOMEN: Obese, bowel sounds active, soft, nontender. EXTREMITIES: No gross edema or cyanosis. Small wound left great toe amputation site with callused edges. There is no redness, swelling or drainage. RUE- AV fistula site unremarkable. Medial left thigh down past knee is erythematous and warm. SKIN: Warm, dry without rash. NEUROLOGIC: Alert and oriented x 3. General: Alert, Oriented X3, Cooperative, No acute distress Heart: Regular rate, No murmurs Lungs: Clear, Other Abdomen: Normal bowel sounds, Soft, No tenderness Extremities: No clubbing, No cyanosis, No edema Skin: Other (leg left redness, mild touch on palpation, no open skin lesions, no fluctuant fluid, slightly warm to touch) Labs LABS Laboratory Tests Test 11/15/17 11:42 11/15/17 16:46 11/15/17 20:14 11/16/17 07:29 Glucose (Fingerstick) 139 mg/dL (70-99) 83 mg/dL (70-99) 147 mg/dL (70-99) 79 mg/dL (70-99) Test 11/16/17 08:20 White Blood Count 5.1 x10^3/uL (4.0-11.0) Red Blood Count 3.51 x10^6/uL (3.50-5.40) Hemoglobin 11.3 g/dL (12.0-15.5) Hematocrit 34.1 % (36.0-47.0) Mean Corpuscular Volume 97 fL (79-100) Mean Corpuscular Hemoglobin 32 pg (25-35) Mean Corpuscular Hemoglobin Concent 33 g/dL (31-37) Red Cell Distribution Width 16.8 % (11.5-14.5) Platelet Count 79 x10^3/uL (140-400) Neutrophils (%) (Auto) 66 % (31-73) Lymphocytes (%) (Auto) 20 % (24-48) Monocytes (%) (Auto) 9 % (0-9) Eosinophils (%) (Auto) 4 % (0-3) Basophils (%) (Auto) 1 % (0-3) Neutrophils # (Auto) 3.3 x10^3uL (1.8-7.7) Lymphocytes # (Auto) 1.0 x10^3/uL (1.0-4.8) Monocytes # (Auto) 0.5 x10^3/uL (0.0-1.1) Eosinophils # (Auto) 0.2 x10^3/uL (0.0-0.7) Basophils # (Auto) 0.0 x10^3/uL (0.0-0.2) Review of Systems Review of Systems A 14 point ROS was completed with the following noted as positive: Other systems reviewed and negative. \CONSTITUTIONAL: No fever or chills EYES: No recent changes SKIN: No rash or itching CARDIOVASCULAR: No chest pain, syncope, palpitations, or edema RESPIRATORY: No SOB or cough GASTROINTESTINAL: No nausea, vomiting or abdominal pain NEUROLOGICAL: No headaches or weakness ENDOCRINE: No cold or heat intolerance GENITOURINARY: No urgency or frequency of urination MUSCULOSKELETAL: No back pain or joint pain LYMPHATICS: No enlarged lymph nodes PSYCHIATRIC: No anxiety or depression Comment Review of Relevant I have reviewed the following items nelda (where applicable) has been applied. Labs Laboratory Tests Test 11/14/17 09:46 11/14/17 10:00 11/14/17 10:29 11/14/17 10:32 White Blood Count 10.7 x10^3/uL (4.0-11.0) Red Blood Count 4.02 x10^6/uL (3.50-5.40) Hemoglobin 13.0 g/dL (12.0-15.5) Hematocrit 38.8 % (36.0-47.0) Mean Corpuscular Volume 97 fL (79-100) Mean Corpuscular Hemoglobin 32 pg (25-35) Mean Corpuscular Hemoglobin Concent 33 g/dL (31-37) Red Cell Distribution Width 16.4 % (11.5-14.5) Platelet Count 125 x10^3/uL (140-400) Neutrophils (%) (Auto) 87 % (31-73) Lymphocytes (%) (Auto) 5 % (24-48) Monocytes (%) (Auto) 6 % (0-9) Eosinophils (%) (Auto) 1 % (0-3) Basophils (%) (Auto) 1 % (0-3) Neutrophils # (Auto) 9.3 x10^3uL (1.8-7.7) Lymphocytes # (Auto) 0.5 x10^3/uL (1.0-4.8) Monocytes # (Auto) 0.7 x10^3/uL (0.0-1.1) Eosinophils # (Auto) 0.1 x10^3/uL (0.0-0.7) Basophils # (Auto) 0.1 x10^3/uL (0.0-0.2) Segmented Neutrophils % 78 % (35-66) Band Neutrophils % 10 % (0-9) Lymphocytes % 2 % (24-48) Atypical Lymphocytes % (Manual) 1 % (0-0) Monocytes % 6 % (0-10) Eosinophils % 2 % (0-5) Basophils % 1 % (0-3) Platelet Estimate Decreased (ADEQUATE) Polychromasia Present Anisocytosis Slight Macrocytosis Slight Tear Drop Cells Occ Ovalocytes Few Sodium Level 138 mmol/L (136-145) Potassium Level 5.4 mmol/L (3.5-5.1) Chloride Level 98 mmol/L (98-107) Carbon Dioxide Level 28 mmol/L (21-32) Anion Gap 12 (6-14) Blood Urea Nitrogen 60 mg/dL (7-20) Creatinine 5.0 mg/dL (0.6-1.0) Estimated GFR (Cockcroft-Gault) 9.0 BUN/Creatinine Ratio 12 (6-20) Glucose Level 138 mg/dL (70-99) Lactic Acid Level 1.3 mmol/L (0.4-2.0) Calcium Level 8.6 mg/dL (8.5-10.1) Total Bilirubin 0.9 mg/dL (0.2-1.0) Aspartate Amino Transf (AST/SGOT) 19 U/L (15-37) Alanine Aminotransferase (ALT/SGPT) 19 U/L (14-59) Alkaline Phosphatase 139 U/L (46-116) Ammonia 39 mcmol/L (11-34) DE-Yjj-I-Type Natriuretic Peptide 6791 pg/mL (0-124) Total Protein 8.1 g/dL (6.4-8.2) Albumin 3.6 g/dL (3.4-5.0) Albumin/Globulin Ratio 0.8 (1.0-1.7) Heterophil Agglutinins Negative (NEGATIVE) Urine Collection Type Unknown Urine Color Yellow Urine Clarity Clear Urine pH 5.0 Urine Specific [place] 1.020 Urine Protein 100 mg/dL (NEG-TRACE) Urine Glucose (UA) Negative mg/dL (NEG) Urine Ketones (Stick) Trace mg/dL (NEG) Urine Blood Negative (NEG) Urine Nitrite Negative (NEG) Urine Bilirubin Small (NEG) Urine Urobilinogen Dipstick 1.0 mg/dL (0.2 mg/dL) Urine Leukocyte Esterase Trace (NEG) Urine RBC Occ /HPF (0-2) Urine WBC 1-4 /HPF (0-4) Urine Squamous Epithelial Cells Few /LPF Urine Amorphous Sediment Present /HPF Urine Bacteria Few /HPF (0-FEW) Urine Mucus Mod /LPF Influenza Type A Antigen Negative (NEGATIVE) Influenza Type B Antigen Negative (NEGATIVE) Glucose (Fingerstick) 135 mg/dL (70-99) Test 11/14/17 12:25 11/14/17 12:30 11/14/17 21:04 11/15/17 05:56 Prothrombin Time 16.7 SEC (11.7-14.0) Prothromb Time International Ratio 1.4 (0.8-1.1) Activated Partial Thromboplast Time 36 SEC (24-38) Nasal Screen MRSA (PCR) Positive (Negative) Glucose (Fingerstick) 106 mg/dL (70-99) Random Vancomycin Level 18.2 mcg/mL Test 11/15/17 11:42 11/15/17 16:46 11/15/17 20:14 11/16/17 07:29 Glucose (Fingerstick) 139 mg/dL (70-99) 83 mg/dL (70-99) 147 mg/dL (70-99) 79 mg/dL (70-99) Test 11/16/17 08:20 White Blood Count 5.1 x10^3/uL (4.0-11.0) Red Blood Count 3.51 x10^6/uL (3.50-5.40) Hemoglobin 11.3 g/dL (12.0-15.5) Hematocrit 34.1 % (36.0-47.0) Mean Corpuscular Volume 97 fL (79-100) Mean Corpuscular Hemoglobin 32 pg (25-35) Mean Corpuscular Hemoglobin Concent 33 g/dL (31-37) Red Cell Distribution Width 16.8 % (11.5-14.5) Platelet Count 79 x10^3/uL (140-400) Neutrophils (%) (Auto) 66 % (31-73) Lymphocytes (%) (Auto) 20 % (24-48) Monocytes (%) (Auto) 9 % (0-9) Eosinophils (%) (Auto) 4 % (0-3) Basophils (%) (Auto) 1 % (0-3) Neutrophils # (Auto) 3.3 x10^3uL (1.8-7.7) Lymphocytes # (Auto) 1.0 x10^3/uL (1.0-4.8) Monocytes # (Auto) 0.5 x10^3/uL (0.0-1.1) Eosinophils # (Auto) 0.2 x10^3/uL (0.0-0.7) Basophils # (Auto) 0.0 x10^3/uL (0.0-0.2) Laboratory Tests Test 11/15/17 11:42 11/15/17 16:46 11/15/17 20:14 11/16/17 07:29 Glucose (Fingerstick) 139 mg/dL (70-99) 83 mg/dL (70-99) 147 mg/dL (70-99) 79 mg/dL (70-99) Test 11/16/17 08:20 White Blood Count 5.1 x10^3/uL (4.0-11.0) Red Blood Count 3.51 x10^6/uL (3.50-5.40) Hemoglobin 11.3 g/dL (12.0-15.5) Hematocrit 34.1 % (36.0-47.0) Mean Corpuscular Volume 97 fL (79-100) Mean Corpuscular Hemoglobin 32 pg (25-35) Mean Corpuscular Hemoglobin Concent 33 g/dL (31-37) Red Cell Distribution Width 16.8 % (11.5-14.5) Platelet Count 79 x10^3/uL (140-400) Neutrophils (%) (Auto) 66 % (31-73) Lymphocytes (%) (Auto) 20 % (24-48) Monocytes (%) (Auto) 9 % (0-9) Eosinophils (%) (Auto) 4 % (0-3) Basophils (%) (Auto) 1 % (0-3) Neutrophils # (Auto) 3.3 x10^3uL (1.8-7.7) Lymphocytes # (Auto) 1.0 x10^3/uL (1.0-4.8) Monocytes # (Auto) 0.5 x10^3/uL (0.0-1.1) Eosinophils # (Auto) 0.2 x10^3/uL (0.0-0.7) Basophils # (Auto) 0.0 x10^3/uL (0.0-0.2) Microbiology 11/14/17 Blood Culture - Final, Complete Medications Current Medications Piperacillin Sod/ Tazobactam Sod 3.375 gm/Sodium Chloride 50 ml @ 100 mls/hr 1X ONCE IV Last administered on 11/14/17at 09:56; Start 11/14/17 at 09:45; Stop 11/14/17 at 10:14; Status DC Fentanyl Citrate (Fentanyl 2ml Vial) 50 mcg 1X ONCE IV Last administered on at 09:57; Start 11/14/17 at 10:00; Stop 11/14/17 at 10:01; Status DC Vancomycin HCl 1.25 gm/Sodium Chloride 250 ml @ 166.667 mls/hr 1X ONCE IV ; Start 11/14/17 at 10:30; Stop 11/14/17 at 11:59; Status UNV Acetaminophen (Tylenol) 1,000 mg 1X ONCE PO Last administered on 11/14/17at 10: 34; Start 11/14/17 at 10:30; Stop 11/14/17 at 10:32; Status DC Albuterol Sulfate (Ventolin Neb Soln) 10 mg 1X ONCE CONT NEB ; Start 11/14/17 at 10:30; Stop 11/14/17 at 10:32; Status DC Dextrose (Dextrose 50%-Water Syringe) 25 gm 1X ONCE IV Last administered on at 11:27; Start 11/14/17 at 10:30; Stop 11/14/17 at 10:32; Status DC Insulin Human Regular (HumuLIN R VIAL) 10 unit 1X ONCE IV Last administered on 11/14/17at 11:28; Start 11/14/17 at 10:30; Stop 11/14/17 at 10:32; Status DC Vancomycin HCl 2 gm/Sodium Chloride 500 ml @ 250 mls/hr 1X ONCE IV Last administered on 11/14/17at 10:43; Start 11/14/17 at 10:45; Stop 11/14/17 at 12:44 ; Status DC Sodium Chloride 1,000 ml @ 1,000 mls/hr Q1H PRN IV hypotension; Start 11/14/17 at 12:30; Stop 11/14/17 at 18:29; Status DC Albumin Human 200 ml @ 200 mls/hr 1X PRN PRN IV Hypotension; Start 11/14/17 at 12:30; Stop 11/14/17 at 18:29; Status DC Acetaminophen (Tylenol) 500 mg 1X PRN PRN PO MILD PAIN / TEMP; Start 11/14/17 at 12:30; Stop 11/15/17 at 12:29; Status DC Diphenhydramine HCl (Benadryl) 25 mg 1X PRN PRN IV ITCHING; Start 11/14/17 at 12:30; Stop 11/15/17 at 12:29; Status DC Diphenhydramine HCl (Benadryl) 25 mg 1X PRN PRN IV ITCHING; Start 11/14/17 at 12:30; Stop 11/15/17 at 12:29; Status DC Labetalol HCl (Normodyne Iv Push) 10 mg PRN Q1HR PRN IVP SBP > 180; Start 11/14 at 12:30; Stop 11/15/17 at 12:29; Status DC Clonidine HCl (Catapres) 0.1 mg 1X PRN PRN PO SBP > 180; Start 11/14/17 at 12: 30; Stop 11/15/17 at 12:29; Status DC Sodium Chloride 1,000 ml @ 400 mls/hr Q2H30M PRN IV PATENCY; Start 11/14/17 at 12:30; Stop 11/15/17 at 00:29; Status DC Info (PHARMACY MONITORING -- do not chart) 1 each PRN DAILY PRN MC SEE COMMENTS ; Start 11/14/17 at 12:30 Vitamin D (Vitamin D3) 1,000 unit DAILY PO Last administered on 11/16/17at 09:28 ; Start 11/15/17 at 09:00 Ferrous Sulfate (Feosol) 325 mg DAILY PO Last administered on 11/16/17at 09:28; Start 11/15/17 at 09:00 Vitamin B Complex/ Vitamin C (Jaz-Jose) 1 tab DAILY PO Last administered on at 09:28; Start 11/15/17 at 09:00 Glimepiride (Amaryl) 2 mg DAILYWBKFT PO Last administered on 11/16/17at 08:05; Start 11/15/17 at 08:00 Acetaminophen/ Hydrocodone Bitart (Lortab 7.5/325) 1 tab PRN Q4HRS PRN PO PAIN SEVERE Last administered on 11/16/17at 02:56; Start 11/14/17 at 15:00 Metoprolol Tartrate (Lopressor) 12.5 mg SuMoWeFr@0900 PO Last administered on at 09:29; Start 11/15/17 at 09:00 Pantoprazole Sodium (Protonix) 40 mg DAILYAC PO Last administered on 11/16/17at 08:05; Start 11/14/17 at 15:00 Sevelamer Carbonate (Renvela) 800 mg TIDWMEALS PO Last administered on at 08:04; Start 11/14/17 at 17:00 Tamsulosin HCl (Flomax) 0.4 mg DAILY PO Last administered on 11/16/17at 09:28; Start 11/15/17 at 09:00 Bumetanide (Bumex) 2 mg DAILY PO Last administered on 11/16/17at 09:28; Start at 09:00 Gabapentin (Neurontin) 600 mg [id number] PO Last administered on 11/15/17at 17:14; Start 11/14/17 at 18:00; Stop 11/15/17 at 17:47; Status DC Non-Formulary Medication (Minocycline Hcl ) 100 cap BID PO ; Start 11/14/17 at 21:00; Stop 11/14/17 at 21:00; Status DC Cefepime HCl (Maxipime) 1 gm Q24H IVP Last administered on 11/15/17at 17:15; Start 11/14/17 at 16:00 Vancomycin HCl (Vancomycin Random Level) 1 each 1X ONCE MC Last administered on 11/15/17at 06:00; Start 11/15/17 at 06:00; Stop 11/15/17 at 06:01; Status DC Fluoxetine HCl (PROzac) 20 mg DAILY PO Last administered on 11/16/17at 09:27; Start 11/15/17 at 09:00 Clopidogrel Bisulfate (Plavix) 75 mg DAILYWSUP PO Last administered on at 17:14; Start 11/14/17 at 17:00 Nicotine (Nicoderm Cq 21mg) 1 patch DAILY TD Last administered on 11/16/17at 09: 27; Start 11/15/17 at 09:00 Vancomycin HCl (Vanco Per Pharmacy) 1 each PRN DAILY PRN MC SEE COMMENTS Last administered on 11/15/17at 08:15; Start 11/14/17 at 15:00 Influenza Virus Vaccine (Afluria Trivalent 9184-2355 Syringe) 0.5 ml ONCE ONCE VAX IM ; Start 11/14/17 at 16:00; Stop 11/14/17 at 16:17; Status DC Lactobacillus Rhamnosus (Culturelle) 1 cap BID PO Last administered on at 09:28; Start 11/15/17 at 09:00 Vancomycin HCl 500 mg/Sodium Chloride 100 ml @ 100 mls/hr QTUTHSA IV ; Start at 16:00 Ondansetron HCl (Zofran) 4 mg PRN Q6HRS PRN IV NAUSEA/VOMITING; Start 11/15/17 at 09:00 Ondansetron HCl (Zofran Odt) 4 mg PRN Q6HRS PRN PO NAUSEA/VOMITING; Start 11/15 at 09:00 Acetaminophen (Tylenol) 500 mg PRN Q6HRS PRN PO MILD PAIN / TEMP; Start at 09:00 Acetaminophen/ Codeine Phosphate (Tylenol #3) 1 tab PRN Q6HRS PRN PO PAIN MODERATE; Start 11/15/17 at 09:00 Insulin Human Lispro (HumaLOG) 0-9 UNITS TIDWMEALS SQ ; Start 11/15/17 at 12:00 Dextrose (Dextrose 50%-Water Syringe) 12.5 gm PRN Q15MIN PRN IV SEE COMMENTS; Start 11/15/17 at 09:00 Clonidine HCl (Catapres) 0.1 mg PRN Q1HR PRN PO HYPERTENSION, SEE COMMENTS; Start 11/15/17 at 09:00 Gabapentin (Neurontin) 600 mg DAILY PO Last administered on 11/16/17at 09:28; Start 11/16/17 at 09:00 Active Scripts Active Hydrocodone-Apap 7.5-325 (Hydrocodone Bit/Acetaminophen) 1 Each Tablet 1 Tab PO PRN Q4HRS PRN 14 Days Clopidogrel (Clopidogrel Bisulfate) 75 Mg Tablet 75 Mg PO DAILYWBKFT 30 Days Pantoprazole Sodium 40 Mg Tablet.dr 40 Mg PO DAILYAC 30 Days Amaryl (Glimepiride) 2 Mg Tablet 2 Mg PO DAILYWBKFT 30 Days Reported Minocycline Hcl 100 Mg Capsule 100 Cap PO BID Metoprolol Tartrate 25 Mg Tablet 12.5 Mg PO Vitamin D3 (Cholecalciferol (Vitamin D3)) 1,000 Unit Tablet 1 Tab PO DAILY Gabapentin 600 Mg Tablet 600 Mg PO [id number] Jaz-Jose Tablet (Folic Acid/Vitamin B Comp W-C) 0.8 Mg Tablet 0.8 Mg PO DAILY Ferrous Sulfate 325 Mg Tablet 1 Tab PO DAILY Tamsulosin Hcl 0.4 Mg Cap.er.24h 0.4 Mg PO DAILY Fluoxetine Hcl 20 Mg Capsule 20 Mg PO DAILY Renvela (Sevelamer Carbonate) 800 Mg Tablet 800 Mg PO TIDWMEALS with snacks between meals Truptide 2 Mg Tablet 1 Tab PO DAILY Vitals/I & O Vital Sign - Last 24 Hours 11/15/17 11/15/17 11/15/17 11/15/17 11:00 15:00 19:00 20:00 Temp 98.9 98.9 98.7 98.9 98.9 98.7 Pulse 80 74 79 Resp 18 20 18 B/P (MAP) 108/51 (70) 104/52 (69) 114/45 (68) Pulse Ox 98 98 94 O2 Delivery Nasal Cannula Nasal Cannula Room Air Nasal Cannula O2 Flow Rate 2.0 11/15/17 11/16/17 11/16/17 11/16/17 23:00 02:56 03:00 07:00 Temp 98.5 98.7 98.0 98.5 98.7 98.0 Pulse 73 75 74 Resp 18 20 16 18 B/P (MAP) 96/54 (68) 118/65 (82) 119/62 (81) Pulse Ox 97 100 97 O2 Delivery Nasal Cannula Nasal Cannula Nasal Cannula 2l O2 Flow Rate 2.0 11/16/17 09:29 Pulse 74 B/P (MAP) 119/62 Intake and Output 11/15/17 11/15/17 11/16/17 15:00 23:00 07:00 Intake Total 1200 ml 200 ml Output Total 0 ml Balance 1200 ml 200 ml MILVIA CARRASCO MD Nov 16, 2017 09:32
[2017-11-16 09:39] LABS: CALCIUM 8.4 mg/dL (8.5-10.1); CREATININE 5.4 mg/dL (0.6-1.0); GFR 8.2; POTASSIUM 4.5 mmol/L (3.5-5.1)
[2017-11-16 11:00] VITALS: BP 115/63
--- NOTE | 2017-11-16 13:13 | PDOC ---
Renal-Progress Notes Subjective Notes Notes FEELING WELL History of Present Illness Hx of present illness BETTER Vitals Vitals Vital Signs Date Time Temp Pulse Resp B/P (MAP) Pulse Ox O2 Delivery O2 Flow Rate FiO2 11/16/17 11:00 98.0 73 18 115/63 (80) 100 2l 98.0 11/16/17 02:56 2.0 Weight Weight [ ] I.O. Intake and Output Intake and Output 11/16/17 07:00 Intake Total 1400 ml Output Total 0 ml Balance 1400 ml Intake Oral 1400 ml Output Urine Total 0 ml # Voids 1 Labs Labs Laboratory Tests Test 11/15/17 16:46 11/15/17 20:14 11/16/17 07:29 11/16/17 08:20 Glucose (Fingerstick) 83 mg/dL (70-99) 147 mg/dL (70-99) 79 mg/dL (70-99) White Blood Count 5.1 x10^3/uL (4.0-11.0) Red Blood Count 3.51 x10^6/uL (3.50-5.40) Hemoglobin 11.3 g/dL (12.0-15.5) Hematocrit 34.1 % (36.0-47.0) Mean Corpuscular Volume 97 fL (79-100) Mean Corpuscular Hemoglobin 32 pg (25-35) Mean Corpuscular Hemoglobin Concent 33 g/dL (31-37) Red Cell Distribution Width 16.8 % (11.5-14.5) Platelet Count 79 x10^3/uL (140-400) Neutrophils (%) (Auto) 66 % (31-73) Lymphocytes (%) (Auto) 20 % (24-48) Monocytes (%) (Auto) 9 % (0-9) Eosinophils (%) (Auto) 4 % (0-3) Basophils (%) (Auto) 1 % (0-3) Neutrophils # (Auto) 3.3 x10^3uL (1.8-7.7) Lymphocytes # (Auto) 1.0 x10^3/uL (1.0-4.8) Monocytes # (Auto) 0.5 x10^3/uL (0.0-1.1) Eosinophils # (Auto) 0.2 x10^3/uL (0.0-0.7) Basophils # (Auto) 0.0 x10^3/uL (0.0-0.2) Erythrocyte Sedimentation Rate 14 (0-25) Sodium Level 136 mmol/L (136-145) Potassium Level 4.5 mmol/L (3.5-5.1) Chloride Level 96 mmol/L (98-107) Carbon Dioxide Level 30 mmol/L (21-32) Anion Gap 10 (6-14) Blood Urea Nitrogen 53 mg/dL (7-20) Creatinine 5.4 mg/dL (0.6-1.0) Estimated GFR (Cockcroft-Gault) 8.2 Glucose Level 75 mg/dL (70-99) Calcium Level 8.4 mg/dL (8.5-10.1) Test 11/16/17 11:01 Glucose (Fingerstick) 96 mg/dL (70-99) Micro Micro Microbiology 11/15/17 Blood Culture - Preliminary, Resulted NO GROWTH AFTER 1 DAY Review of Systems Constitutional: yes: weakness, alert, oriented Ears/Nose/Throat: Yes: no symptom reported Eyes: Yes: no symptom reported Pulmonary: Yes no symptom reported Cardiovascular: Yes no symptom reported Gastrointestional: Yes: constipation Genitourinary: Yes: no symptom reported Musculoskeletal: Yes: muscle stiffness Skin: Yes color change Psychiatric/Neurological: Yes: no symptom reported Endocrine: Yes: no symptom reported Hematologic/Lymphatic: Yes: no symptom reported Physical Exam General Appearance: no apparent distress Skin: warm Respiratory: bilateral CTA Heart: S1S2 Abdomen: soft, bowel sounds present Genitourinary: bladder flat Extremities: pulses present Neurology: alert, oriented Musculoskeletal: Osteoarthritis Assessment Assessment IMP SEPSIS ANEMIA DM II HTN LLE CELLULITIS ESRD PLAN ANTIBIOTICS HD TOMORROW WILL FOLLOW RITU PARSON MD Nov 16, 2017 13:13
--- NOTE | 2017-11-16 13:26 | RAD ---
EXAM: Left lower extremity venous Doppler sonogram. HISTORY: Pain and swelling. TECHNIQUE: Lemus scale and color Doppler sonographic evaluation of the left lower extremity veins with spectral waveform analysis was performed. FINDINGS: There is normal color flow, normal compressibility and there are normal spectral waveforms in the common femoral, superficial femoral, popliteal, posterior tibial and greater saphenous veins. IMPRESSION: No Doppler evidence of lower extremity deep venous thrombosis. Electronically signed by: Dianelys Fan MD (11/16/2017 1:23 PM) [place] [id number]
[2017-11-16] MEDS: VANCOMYCIN PER PHARMACY MC PRN (14:37)
[2017-11-16 15:00] VITALS: BP 124/65
[2017-11-16] MEDS: CEFEPIME HCL IV Push 1 GM VIAL. IVP SCH (16:00)
[2017-11-16] MEDS: CLOPIDOGREL BISULFATE 75 MG TABLET PO SCH (17:15)
[2017-11-16 19:00] VITALS: BP 111/78
[2017-11-16 22:46] VITALS: BP 111/57
[2017-11-17 02:53] VITALS: BP 115/63
[2017-11-17 06:34] VITALS: BP 112/69
[2017-11-17] MEDS ORDERED: IV NORMAL SALINE 1000ML BAG 1,000 ML IV PRN ×2 (07:34)
[2017-11-17] MEDS: PANTOPRAZOLE 40 MG TABLET.DR. PO SCH (07:36)
[2017-11-17] MEDS ORDERED: DIALYSIS PATIENT. MC PRN ×2 (07:45)
[2017-11-17] MEDS: INSULIN LISPRO 300 UNITS/3 ML INSULN.PEN. SQ SCH ×3 (08:00→17:00)
[2017-11-17] MEDS: FERROUS SULFATE 325 MG TABLET. PO SCH (08:08)
[2017-11-17] MEDS: SEVELAMER CARBONATE 800 MG TABLET. PO SCH ×3 (08:09→17:11)
[2017-11-17] MEDS: FLUoxetine HCL 20 MG CAPSULE PO SCH (08:09)
[2017-11-17] MEDS: LACTOBACILLUS RHAMNOSUS GG 1 CAPSULE. PO SCH ×2 (08:09→20:03)
[2017-11-17] MEDS: NICOTINE 21MG PATCH. TD SCH (08:10)
[2017-11-17] MEDS: GABAPENTIN 300 MG CAPSULE. PO SCH (08:10)
[2017-11-17] MEDS: FOLIC/VIT B COMP W-C (RENAL) TABLET. PO SCH (08:10)
[2017-11-17] MEDS: GLIMEPIRIDE 2 MG TABLET. PO SCH (08:10)
[2017-11-17] MEDS: CHOLECALCIFEROL (VITAMIN D3) 1,000 UNIT TABLET PO SCH (08:14)
[2017-11-17] MEDS: BUMETANIDE 1 MG TABLET. PO SCH (09:00)
--- NOTE | 2017-11-17 09:16 | PDOC ---
Infectious Disease Note Subjective: Subjective Pt says feels better LLE swelling, pain better today compared to yesterday no n/v/d/abdo pain/groin pain/cough Redness is improving ROS: ROS Negative except for above. Vital Signs: Vital Signs Vital Signs Date Time Temp Pulse Resp B/P (MAP) Pulse Ox O2 Delivery O2 Flow Rate FiO2 11/17/17 06:34 98.1 69 19 112/69 (83) 100 Nasal Cannula 2.0 98.1 Physical Exam: PHYSICAL EXAM GENERAL: AXOXO3 male in nad HEENT: Normal conjunctivae. Oral mucosa is pink and moist. LUNGS: Clear to auscultation. HEART: S1, S2. No murmur appreciated. Left-sided PPM/AICD. ABDOMEN: Obese, bowel sounds active, soft, nontender. EXTREMITIES: No gross edema or cyanosis. Small wound left great toe amputation site with callused edges. There is no redness, swelling or drainage. RUE- AV fistula site unremarkable. Medial left thigh down past knee is erythematous and warm.receding from previous markings no thigh or groin lesions SKIN: Warm, dry without rash. NEUROLOGIC: Alert and oriented x 3. Medications: Inpatient Meds: Current Medications Medications (Trade) Dose Ordered Sig/Susan Start Time Stop Time Status Last Admin Dose Admin Acetaminophen (Tylenol) 500 mg PRN Q6HRS PRN 11/15/17 09:00 Acetaminophen/ Codeine Phosphate (Tylenol #3) 1 tab PRN Q6HRS PRN 11/15/17 09:00 Acetaminophen/ Hydrocodone Bitart (Lortab 7.5/325) 1 tab PRN Q4HRS PRN 11/14/17 15:00 11/16/17 23:30 1 TAB Albumin Human 200 ml @ 200 mls/hr 1X PRN PRN 11/14/17 12:30 11/14/17 18:29 DC Albuterol Sulfate (Ventolin Neb Soln) 10 mg 1X ONCE 11/14/17 10:30 11/14/17 10:32 DC Bumetanide (Bumex) 2 mg DAILY 11/15/17 09:00 11/16/17 09:28 2 MG Cefepime HCl (Maxipime) 1 gm Q24H 11/14/17 16:00 11/16/17 16:00 1 GM Clonidine HCl (Catapres) 0.1 mg PRN Q1HR PRN 11/15/17 09:00 Clopidogrel Bisulfate (Plavix) 75 mg DAILYWSUP 11/14/17 17:00 11/16/17 17:15 75 MG Dextrose (Dextrose 50%-Water Syringe) 12.5 gm PRN Q15MIN PRN 11/15/17 09:00 Diphenhydramine HCl (Benadryl) 25 mg 1X PRN PRN 11/14/17 12:30 11/15/17 12:29 DC Fentanyl Citrate (Fentanyl 2ml Vial) 50 mcg 1X ONCE 11/14/17 10:00 11/14/17 10:01 DC 11/14/17 09:57 50 MCG Ferrous Sulfate (Feosol) 325 mg DAILY 11/15/17 09:00 11/17/17 08:08 325 MG Fluoxetine HCl (PROzac) 20 mg DAILY 11/15/17 09:00 11/17/17 08:09 20 MG Gabapentin (Neurontin) 600 mg DAILY 11/16/17 09:00 11/17/17 08:10 600 MG Glimepiride (Amaryl) 2 mg DAILYWBKFT 11/15/17 08:00 11/17/17 08:10 2 MG Influenza Virus Vaccine (Afluria Trivalent [id number] Syringe) 0.5 ml ONCE ONCE 11/14/17 16:00 11/14/17 16:17 DC Info (PHARMACY MONITORING -- do not chart) 1 each PRN DAILY PRN 11/17/17 07:45 Insulin Human Lispro (HumaLOG) 0-9 UNITS TIDWMEALS 11/15/17 12:00 Insulin Human Regular (HumuLIN R VIAL) 10 unit 1X ONCE 11/14/17 10:30 11/14/17 10:32 DC 11/14/17 11:28 10 UNIT Labetalol HCl (Normodyne Iv Push) 10 mg PRN Q1HR PRN 11/14/17 12:30 11/15/17 12:29 DC Lactobacillus Rhamnosus (Culturelle) 1 cap BID 11/15/17 09:00 11/17/17 08:09 1 CAP Metoprolol Tartrate (Lopressor) 12.5 mg SuMoWeFr@0900 11/15/17 09:00 9/17/18 09:29 12.5 MG Nicotine (Nicoderm Cq 21mg) 1 patch DAILY 11/15/17 09:00 11/17/17 08:10 1 PATCH Non-Formulary Medication (Minocycline Hcl ) 100 cap BID 11/14/17 21:00 11/14/17 21:00 DC Ondansetron HCl (Zofran Odt) 4 mg PRN Q6HRS PRN 11/15/17 09:00 Ondansetron HCl (Zofran) 4 mg PRN Q6HRS PRN 11/15/17 09:00 Pantoprazole Sodium (Protonix) 40 mg DAILYAC 11/14/17 15:00 11/17/17 07:36 40 MG Piperacillin Sod/ Tazobactam Sod 3.375 gm/Sodium Chloride 50 ml @ 100 mls/hr 1X ONCE 11/14/17 09:45 11/14/17 10:14 DC 11/14/17 09:56 100 MLS/HR Sevelamer Carbonate (Renvela) 800 mg TIDWMEALS 11/14/17 17:00 11/17/17 08:09 800 MG Sodium Chloride 1,000 ml @ 400 mls/hr Q2H30M PRN 11/17/17 07:34 11/17/17 19:33 Tamsulosin HCl (Flomax) 0.4 mg DAILY 11/15/17 09:00 11/16/17 09:28 0.4 MG Vancomycin HCl (Vanco Per Pharmacy) 1 each PRN DAILY PRN 11/14/17 15:00 11/16/17 14:37 1 EACH Vancomycin HCl (Vancomycin Random Level) 1 each 1X ONCE 11/15/17 06:00 11/15/17 06:01 DC 11/15/17 06:00 1 EACH Vancomycin HCl 1.25 gm/Sodium Chloride 250 ml @ 166.667 mls/hr 1X ONCE 11/14/17 10:30 11/14/17 11:59 UNV Vancomycin HCl 500 mg/Sodium Chloride 100 ml @ 100 mls/hr QTUTHSA 11/17/17 16:00 Vancomycin HCl 2 gm/Sodium Chloride 500 ml @ 250 mls/hr 1X ONCE 11/14/17 10:45 11/14/17 12:44 DC 11/14/17 10:43 250 MLS/HR Vitamin B Complex/ Vitamin C (Jaz-Jose) 1 tab DAILY 11/15/17 09:00 11/17/17 08:10 1 TAB Vitamin D (Vitamin D3) 1,000 unit DAILY 11/15/17 09:00 11/17/17 08:14 1,000 UNIT Labs: Lab Laboratory Tests Test 11/16/17 11:01 11/16/17 15:40 11/16/17 20:09 11/17/17 07:46 Glucose (Fingerstick) 96 mg/dL (70-99) 114 mg/dL (70-99) 140 mg/dL (70-99) 89 mg/dL (70-99) Micro RUN DATE: 11/15/17 PAGE 1 RUN TIME: 815 [facility] [address] [place] [address] Jamie Sarah M.D., [employer] PATIENT: CHARLIE YBARRA ACCT: [id number] LOC: [address] [place] [address] U : [id number] AGE/SX: 57/F ROOM: 578 REG : 11/14/[address]: POONAM CHRISTOPHER III DO : 1960 BED: 1 DIS : STATUS: ADM IN TLOC: SPEC #: [id number] KAYLI: 11/14/17 STATUS: COMP REQ #: [id number] RECD: 11/14/[address]: LOVELY PAYAN MD SOURCE: BLOOD ENTR: 11/14/17-[address]: PAULY AU MD [facility]: ORDERED: BCULT Procedure Result BLOOD CULTURE Final GRAM POSITIVE COCCI 1 SET DRAWN, 2 OF 2 POSITIVE CALLED TO TABATHA JOEL RN IN 5 S BY Lamar WALLER,11/15/17,0815 SPECIMEN SENDING TO [place] FOR FURTHER WORK UP Objective: Assessment: GPC bacteremia POA from 11/14. (2 of 2 bottles) ID and RICHARD pending; source likely LLE cellulitis Repeat BC 11/15 neg so far New-onset cellulitis of left leg Fever and chills resolved Bandemia CKD on HD via AV fistula DM PAD H/o MRSA N/V Plan: Plan of Care cont empiric vancomycin and cefepime Random trough 18.2 Awaiting GPC ID from at this time f/u labs and cults Monitor labs/temp Supportive care QUINN TANG MD Nov 17, 2017 09:16
--- NOTE | 2017-11-17 10:29 | PDOC ---
Renal-Progress Notes Subjective Notes Notes NONE History of Present Illness Hx of present illness STABLE Vitals Vitals Vital Signs Date Time Temp Pulse Resp B/P (MAP) Pulse Ox O2 Delivery O2 Flow Rate FiO2 11/17/17 08:00 Nasal Cannula 3.0 11/17/17 06:34 98.1 69 19 112/69 (83) 100 98.1 Weight Weight [ ] I.O. Intake and Output Intake and Output 11/17/17 07:00 Intake Total 3400 ml Balance 3400 ml Intake Oral 3400 ml # Voids 1 Labs Labs Laboratory Tests Test 11/16/17 11:01 11/16/17 15:40 11/16/17 20:09 11/17/17 07:46 Glucose (Fingerstick) 96 mg/dL (70-99) 114 mg/dL (70-99) 140 mg/dL (70-99) 89 mg/dL (70-99) Micro Micro Microbiology 11/15/17 Blood Culture - Preliminary, Resulted NO GROWTH AFTER 1 DAY 11/14/17 Urine Culture - Final, Complete 11/14/17 Urine Culture Result 1 (RICHARD) - Final, Complete Review of Systems Constitutional: yes: weakness, alert, oriented Ears/Nose/Throat: Yes: no symptom reported Eyes: Yes: no symptom reported Pulmonary: Yes no symptom reported Cardiovascular: Yes no symptom reported Gastrointestional: Yes: constipation Genitourinary: Yes: no symptom reported Musculoskeletal: Yes: muscle stiffness Skin: Yes color change Psychiatric/Neurological: Yes: no symptom reported Endocrine: Yes: no symptom reported Hematologic/Lymphatic: Yes: no symptom reported Physical Exam General Appearance: no apparent distress Skin: warm Respiratory: bilateral CTA Heart: S1S2 Abdomen: soft, bowel sounds present Genitourinary: bladder flat Extremities: pulses present Neurology: alert, oriented Musculoskeletal: Osteoarthritis Assessment Assessment IMP SEPSIS ANEMIA DM II HTN LLE CELLULITIS ESRD PLAN ANTIBIOTICS HD TODAY UF TO DW WILL FOLLOW RITU PARSON MD Nov 17, 2017 10:29
--- NOTE | 2017-11-17 10:49 | PDOC ---
PROGRESS NOTES Chief Complaint Chief Complaint LEft leg cellulitis 1. Fever and chills. 2. Bandemia. 3. Chronic kidney disease, on hemodialysis via arteriovenous fistula. 4. Diabetes. 5. Peripheral arterial disease. 6. History of methicillin-resistant Staphylococcus aureus. 7. Thrombocytopenia in the background of sepsis 8. SEPSIS no organ dysfcn History of Present Illness History of Present Illness She has no complaints to [place] IV abx per ID, history of past sepsis or MRSA No fever, nontoxic-appearing Seen at dialysis GPC bacteremia and 1 out of 2 bottles final Urine culture is negative Plan: CPM, follow ID recs, IV antibiotics Follow cultures HD per renal Will dc once Shofted to PO abx LEft leg redness seems to be getting better\ Likely dc tmr am or later today Vitals Vitals Vital Signs Date Time Temp Pulse Resp B/P (MAP) Pulse Ox O2 Delivery O2 Flow Rate FiO2 11/17/17 08:00 Nasal Cannula 3.0 11/17/17 06:34 98.1 69 19 112/69 (83) 100 98.1 Physical Exam Physical Exam GENERAL: AXOXO3 male in nad HEENT: Normal conjunctivae. Oral mucosa is pink and moist. LUNGS: Clear to auscultation. HEART: S1, S2. No murmur appreciated. Left-sided PPM/AICD. ABDOMEN: Obese, bowel sounds active, soft, nontender. EXTREMITIES: No gross edema or cyanosis. Small wound left great toe amputation site with callused edges. There is no redness, swelling or drainage. RUE- AV fistula site unremarkable. Medial left thigh down past knee is erythematous and warm.receding from previous markings no thigh or groin lesions SKIN: Warm, dry without rash. NEUROLOGIC: Alert and oriented x 3. General: Alert, Oriented X3, Cooperative, No acute distress Heart: Regular rate, No murmurs Lungs: Clear, Other Abdomen: Normal bowel sounds, Soft, No tenderness Extremities: No clubbing, No cyanosis, No edema Skin: Other (leg left redness, mild touch on palpation, no open skin lesions, no fluctuant fluid, slightly warm to touch) Labs LABS Laboratory Tests Test 11/16/17 11:01 11/16/17 15:40 11/16/17 20:09 11/17/17 07:46 Glucose (Fingerstick) 96 mg/dL (70-99) 114 mg/dL (70-99) 140 mg/dL (70-99) 89 mg/dL (70-99) Review of Systems Review of Systems A 14 point ROS was completed with the following noted as positive: Other systems reviewed and negative. \CONSTITUTIONAL: No fever or chills EYES: No recent changes SKIN: No rash or itching CARDIOVASCULAR: No chest pain, syncope, palpitations, or edema RESPIRATORY: No SOB or cough GASTROINTESTINAL: No nausea, vomiting or abdominal pain NEUROLOGICAL: No headaches or weakness ENDOCRINE: No cold or heat intolerance GENITOURINARY: No urgency or frequency of urination MUSCULOSKELETAL: No back pain or joint pain LYMPHATICS: No enlarged lymph nodes PSYCHIATRIC: No anxiety or depression Comment Review of Relevant I have reviewed the following items nelda (where applicable) has been applied. Labs Laboratory Tests Test 11/15/17 11:42 11/15/17 16:46 11/15/17 20:14 11/16/17 07:29 Glucose (Fingerstick) 139 mg/dL (70-99) 83 mg/dL (70-99) 147 mg/dL (70-99) 79 mg/dL (70-99) Test 11/16/17 08:20 11/16/17 11:01 11/16/17 15:40 11/16/17 20:09 White Blood Count 5.1 x10^3/uL (4.0-11.0) Red Blood Count 3.51 x10^6/uL (3.50-5.40) Hemoglobin 11.3 g/dL (12.0-15.5) Hematocrit 34.1 % (36.0-47.0) Mean Corpuscular Volume 97 fL (79-100) Mean Corpuscular Hemoglobin 32 pg (25-35) Mean Corpuscular Hemoglobin Concent 33 g/dL (31-37) Red Cell Distribution Width 16.8 % (11.5-14.5) Platelet Count 79 x10^3/uL (140-400) Neutrophils (%) (Auto) 66 % (31-73) Lymphocytes (%) (Auto) 20 % (24-48) Monocytes (%) (Auto) 9 % (0-9) Eosinophils (%) (Auto) 4 % (0-3) Basophils (%) (Auto) 1 % (0-3) Neutrophils # (Auto) 3.3 x10^3uL (1.8-7.7) Lymphocytes # (Auto) 1.0 x10^3/uL (1.0-4.8) Monocytes # (Auto) 0.5 x10^3/uL (0.0-1.1) Eosinophils # (Auto) 0.2 x10^3/uL (0.0-0.7) Basophils # (Auto) 0.0 x10^3/uL (0.0-0.2) Erythrocyte Sedimentation Rate 14 (0-25) Sodium Level 136 mmol/L (136-145) Potassium Level 4.5 mmol/L (3.5-5.1) Chloride Level 96 mmol/L (98-107) Carbon Dioxide Level 30 mmol/L (21-32) Anion Gap 10 (6-14) Blood Urea Nitrogen 53 mg/dL (7-20) Creatinine 5.4 mg/dL (0.6-1.0) Estimated GFR (Cockcroft-Gault) 8.2 Glucose Level 75 mg/dL (70-99) Calcium Level 8.4 mg/dL (8.5-10.1) Glucose (Fingerstick) 96 mg/dL (70-99) 114 mg/dL (70-99) 140 mg/dL (70-99) Test 11/17/17 07:46 Glucose (Fingerstick) 89 mg/dL (70-99) Laboratory Tests Test 11/16/17 11:01 11/16/17 15:40 11/16/17 20:09 11/17/17 07:46 Glucose (Fingerstick) 96 mg/dL (70-99) 114 mg/dL (70-99) 140 mg/dL (70-99) 89 mg/dL (70-99) Microbiology 11/15/17 Blood Culture - Preliminary, Resulted NO GROWTH AFTER 1 DAY 11/14/17 Urine Culture - Final, Complete 11/14/17 Urine Culture Result 1 (RICHARD) - Final, Complete Medications Current Medications Piperacillin Sod/ Tazobactam Sod 3.375 gm/Sodium Chloride 50 ml @ 100 mls/hr 1X ONCE IV Last administered on 11/14/17at 09:56; Start 11/14/17 at 09:45; Stop 11/14/17 at 10:14; Status DC Fentanyl Citrate (Fentanyl 2ml Vial) 50 mcg 1X ONCE IV Last administered on at 09:57; Start 11/14/17 at 10:00; Stop 11/14/17 at 10:01; Status DC Vancomycin HCl 1.25 gm/Sodium Chloride 250 ml @ 166.667 mls/hr 1X ONCE IV ; Start 11/14/17 at 10:30; Stop 11/14/17 at 11:59; Status UNV Acetaminophen (Tylenol) 1,000 mg 1X ONCE PO Last administered on 11/14/17at 10: 34; Start 11/14/17 at 10:30; Stop 11/14/17 at 10:32; Status DC Albuterol Sulfate (Ventolin Neb Soln) 10 mg 1X ONCE CONT NEB ; Start 11/14/17 at 10:30; Stop 11/14/17 at 10:32; Status DC Dextrose (Dextrose 50%-Water Syringe) 25 gm 1X ONCE IV Last administered on at 11:27; Start 11/14/17 at 10:30; Stop 11/14/17 at 10:32; Status DC Insulin Human Regular (HumuLIN R VIAL) 10 unit 1X ONCE IV Last administered on 11/14/17at 11:28; Start 11/14/17 at 10:30; Stop 11/14/17 at 10:32; Status DC Vancomycin HCl 2 gm/Sodium Chloride 500 ml @ 250 mls/hr 1X ONCE IV Last administered on 11/14/17at 10:43; Start 11/14/17 at 10:45; Stop 11/14/17 at 12:44 ; Status DC Sodium Chloride 1,000 ml @ 1,000 mls/hr Q1H PRN IV hypotension; Start 11/14/17 at 12:30; Stop 11/14/17 at 18:29; Status DC Albumin Human 200 ml @ 200 mls/hr 1X PRN PRN IV Hypotension; Start 11/14/17 at 12:30; Stop 11/14/17 at 18:29; Status DC Acetaminophen (Tylenol) 500 mg 1X PRN PRN PO MILD PAIN / TEMP; Start 11/14/17 at 12:30; Stop 11/15/17 at 12:29; Status DC Diphenhydramine HCl (Benadryl) 25 mg 1X PRN PRN IV ITCHING; Start 11/14/17 at 12:30; Stop 11/15/17 at 12:29; Status DC Diphenhydramine HCl (Benadryl) 25 mg 1X PRN PRN IV ITCHING; Start 11/14/17 at 12:30; Stop 11/15/17 at 12:29; Status DC Labetalol HCl (Normodyne Iv Push) 10 mg PRN Q1HR PRN IVP SBP > 180; Start 11/14 at 12:30; Stop 11/15/17 at 12:29; Status DC Clonidine HCl (Catapres) 0.1 mg 1X PRN PRN PO SBP > 180; Start 11/14/17 at 12: 30; Stop 11/15/17 at 12:29; Status DC Sodium Chloride 1,000 ml @ 400 mls/hr Q2H30M PRN IV PATENCY; Start 11/14/17 at 12:30; Stop 11/15/17 at 00:29; Status DC Info (PHARMACY MONITORING -- do not chart) 1 each PRN DAILY PRN MC SEE COMMENTS ; Start 11/14/17 at 12:30 Vitamin D (Vitamin D3) 1,000 unit DAILY PO Last administered on 11/17/17at 08:14 ; Start 11/15/17 at 09:00 Ferrous Sulfate (Feosol) 325 mg DAILY PO Last administered on 11/17/17at 08:08; Start 11/15/17 at 09:00 Vitamin B Complex/ Vitamin C (Jaz-Jose) 1 tab DAILY PO Last administered on at 08:10; Start 11/15/17 at 09:00 Glimepiride (Amaryl) 2 mg DAILYWBKFT PO Last administered on 11/17/17at 08:10; Start 11/15/17 at 08:00 Acetaminophen/ Hydrocodone Bitart (Lortab 7.5/325) 1 tab PRN Q4HRS PRN PO PAIN SEVERE Last administered on 11/16/17at 23:30; Start 11/14/17 at 15:00 Metoprolol Tartrate (Lopressor) 12.5 mg SuMoWeFr@0900 PO Last administered on at 09:29; Start 11/15/17 at 09:00 Pantoprazole Sodium (Protonix) 40 mg DAILYAC PO Last administered on 11/17/17at 07:36; Start 11/14/17 at 15:00 Sevelamer Carbonate (Renvela) 800 mg TIDWMEALS PO Last administered on at 08:09; Start 11/14/17 at 17:00 Tamsulosin HCl (Flomax) 0.4 mg DAILY PO Last administered on 11/16/17at 09:28; Start 11/15/17 at 09:00 Bumetanide (Bumex) 2 mg DAILY PO Last administered on 11/16/17at 09:28; Start at 09:00 Gabapentin (Neurontin) 600 mg [id number] PO Last administered on 11/15/17at 17:14; Start 11/14/17 at 18:00; Stop 11/15/17 at 17:47; Status DC Non-Formulary Medication (Minocycline Hcl ) 100 cap BID PO ; Start 11/14/17 at 21:00; Stop 11/14/17 at 21:00; Status DC Cefepime HCl (Maxipime) 1 gm Q24H IVP Last administered on 11/16/17at 16:00; Start 11/14/17 at 16:00 Vancomycin HCl (Vancomycin Random Level) 1 each 1X ONCE MC Last administered on 11/15/17at 06:00; Start 11/15/17 at 06:00; Stop 11/15/17 at 06:01; Status DC Fluoxetine HCl (PROzac) 20 mg DAILY PO Last administered on 11/17/17at 08:09; Start 11/15/17 at 09:00 Clopidogrel Bisulfate (Plavix) 75 mg DAILYWSUP PO Last administered on at 17:15; Start 11/14/17 at 17:00 Nicotine (Nicoderm Cq 21mg) 1 patch DAILY TD Last administered on 11/17/17at 08: 10; Start 11/15/17 at 09:00 Vancomycin HCl (Vanco Per Pharmacy) 1 each PRN DAILY PRN MC SEE COMMENTS Last administered on 11/16/17at 14:37; Start 11/14/17 at 15:00 Influenza Virus Vaccine (Afluria Trivalent [id number] Syringe) 0.5 ml ONCE ONCE VAX IM ; Start 11/14/17 at 16:00; Stop 11/14/17 at 16:17; Status DC Lactobacillus Rhamnosus (Culturelle) 1 cap BID PO Last administered on at 08:09; Start 11/15/17 at 09:00 Vancomycin HCl 500 mg/Sodium Chloride 100 ml @ 100 mls/hr QTUTHSA IV ; Start at 16:00 Ondansetron HCl (Zofran) 4 mg PRN Q6HRS PRN IV NAUSEA/VOMITING; Start 11/15/17 at 09:00 Ondansetron HCl (Zofran Odt) 4 mg PRN Q6HRS PRN PO NAUSEA/VOMITING; Start 11/15 at 09:00 Acetaminophen (Tylenol) 500 mg PRN Q6HRS PRN PO MILD PAIN / TEMP; Start at 09:00 Acetaminophen/ Codeine Phosphate (Tylenol #3) 1 tab PRN Q6HRS PRN PO PAIN MODERATE; Start 11/15/17 at 09:00 Insulin Human Lispro (HumaLOG) 0-9 UNITS TIDWMEALS SQ ; Start 11/15/17 at 12:00 Dextrose (Dextrose 50%-Water Syringe) 12.5 gm PRN Q15MIN PRN IV SEE COMMENTS; Start 11/15/17 at 09:00 Clonidine HCl (Catapres) 0.1 mg PRN Q1HR PRN PO HYPERTENSION, SEE COMMENTS; Start 11/15/17 at 09:00 Gabapentin (Neurontin) 600 mg DAILY PO Last administered on 11/17/17at 08:10; Start 11/16/17 at 09:00 Sodium Chloride 1,000 ml @ 1,000 mls/hr Q1H PRN IV hypotension; Start 11/17/17 at 07:34; Stop 11/17/17 at 13:33 Sodium Chloride 1,000 ml @ 400 mls/hr Q2H30M PRN IV PATENCY; Start 11/17/17 at 07:34; Stop 11/17/17 at 19:33 Info (PHARMACY MONITORING -- do not chart) 1 each PRN DAILY PRN MC SEE COMMENTS ; Start 11/17/17 at 07:45 Info (PHARMACY MONITORING -- do not chart) 1 each PRN DAILY PRN MC SEE COMMENTS ; Start 11/17/17 at 07:45 Active Scripts Active Hydrocodone-Apap 7.5-325 (Hydrocodone Bit/Acetaminophen) 1 Each Tablet 1 Tab PO PRN Q4HRS PRN 14 Days Clopidogrel (Clopidogrel Bisulfate) 75 Mg Tablet 75 Mg PO DAILYWBKFT 30 Days Pantoprazole Sodium 40 Mg Tablet.dr 40 Mg PO DAILYAC 30 Days Amaryl (Glimepiride) 2 Mg Tablet 2 Mg PO DAILYWBKFT 30 Days Reported Minocycline Hcl 100 Mg Capsule 100 Cap PO BID Metoprolol Tartrate 25 Mg Tablet 12.5 Mg PO Vitamin D3 (Cholecalciferol (Vitamin D3)) 1,000 Unit Tablet 1 Tab PO DAILY Gabapentin 600 Mg Tablet 600 Mg PO [id number] Jaz-Jose Tablet (Folic Acid/Vitamin B Comp W-C) 0.8 Mg Tablet 0.8 Mg PO DAILY Ferrous Sulfate 325 Mg Tablet 1 Tab PO DAILY Tamsulosin Hcl 0.4 Mg Cap.er.24h 0.4 Mg PO DAILY Fluoxetine Hcl 20 Mg Capsule 20 Mg PO DAILY Renvela (Sevelamer Carbonate) 800 Mg Tablet 800 Mg PO TIDWMEALS with snacks between meals Bumetanide 2 Mg Tablet 1 Tab PO DAILY Vitals/I & O Vital Sign - Last 24 Hours 11/16/17 11/16/17 11/16/17 11/16/17 11:00 15:00 19:00 20:00 Temp 98.0 98.0 97.6 98.0 98.0 97.6 Pulse 73 67 76 Resp 18 18 19 B/P (MAP) 115/63 (80) 124/65 (84) 111/78 (89) Pulse Ox 100 96 94 O2 Delivery 2l 2L Nasal Cannula Room Air 11/16/17 11/16/17 11/17/17 11/17/17 22:46 23:30 00:35 02:53 Temp 97.8 98.6 97.8 98.6 Pulse 78 78 Resp 19 B/P (MAP) 111/57 (75) 115/63 (80) Pulse Ox 95 97 O2 Delivery Nasal Cannula Nasal Cannula Nasal Cannula Nasal Cannula O2 Flow Rate 2.0 2.0 2.0 2.0 11/17/17 11/17/17 06:34 08:00 Temp 98.1 98.1 Pulse 69 Resp 19 B/P (MAP) 112/69 (83) Pulse Ox 100 O2 Delivery Nasal Cannula Nasal Cannula O2 Flow Rate 2.0 3.0 Intake and Output 11/16/17 11/16/17 11/17/17 15:00 23:00 07:00 Intake Total 600 ml 1300 ml 1500 ml Balance 600 ml 1300 ml 1500 ml MILVIA CARRASCO MD Nov 17, 2017 10:49
[2017-11-17] MEDS ORDERED: HYDR-2762 PO (10:50)
[2017-11-17] MEDS: TAMSULOSIN 0.4 MG CAP.ER.24H. PO SCH (13:39)
[2017-11-17] MEDS: VANCOMYCIN PER PHARMACY MC PRN (14:26)
[2017-11-17 15:00] VITALS: BP 120/39
[2017-11-17] MEDS ORDERED: NYSTATIN TOPICAL POWDER 15GM BOTTLE. TP SCH (15:00)
[2017-11-17] MEDS: FLUCONAZOLE 100 MG TABLET. PO SCH (15:05)
[2017-11-17] MEDS ORDERED: VANCOMYCIN 500 MG in IV NORMAL SALINE 100ML 100 ML IV SCH (16:00)
[2017-11-17] MEDS: CEFEPIME HCL IV Push 1 GM VIAL. IVP SCH (16:02)
[2017-11-17] MEDS: CLOPIDOGREL BISULFATE 75 MG TABLET PO SCH (17:11)
[2017-11-17 19:00] VITALS: BP 116/64
[2017-11-17 23:00] VITALS: BP 103/56
[2017-11-18 03:00] VITALS: BP 100/64
[2017-11-18] MEDS: HYDROcodone/APAP 7.5/325MG 1 TAB TABLET PO PRN (03:44)
[2017-11-18 07:00] VITALS: BP 120/52
[2017-11-18] MEDS: INSULIN LISPRO 300 UNITS/3 ML INSULN.PEN. SQ SCH ×2 (08:00→11:21)
[2017-11-18] MEDS: NICOTINE 21MG PATCH. TD SCH (08:07)
[2017-11-18] MEDS: FOLIC/VIT B COMP W-C (RENAL) TABLET. PO SCH (08:07)
[2017-11-18] MEDS: SEVELAMER CARBONATE 800 MG TABLET. PO SCH ×2 (08:08→11:38)
[2017-11-18] MEDS: BUMETANIDE 1 MG TABLET. PO SCH (08:08)
[2017-11-18] MEDS: GABAPENTIN 300 MG CAPSULE. PO SCH (08:08)
[2017-11-18] MEDS: LACTOBACILLUS RHAMNOSUS GG 1 CAPSULE. PO SCH (08:08)
[2017-11-18] MEDS: FERROUS SULFATE 325 MG TABLET. PO SCH (08:08)
[2017-11-18] MEDS: FLUCONAZOLE 100 MG TABLET. PO SCH (08:08)
[2017-11-18] MEDS: FLUoxetine HCL 20 MG CAPSULE PO SCH (08:09)
[2017-11-18] MEDS: TAMSULOSIN 0.4 MG CAP.ER.24H. PO SCH (08:09)
[2017-11-18] MEDS: PANTOPRAZOLE 40 MG TABLET.DR. PO SCH (08:09)
[2017-11-18 08:10] VITALS: BP 124/72
[2017-11-18] MEDS: CHOLECALCIFEROL (VITAMIN D3) 1,000 UNIT TABLET PO SCH (08:10)
[2017-11-18] MEDS: METOPROLOL TART IMMED RELEASE 25 MG TABLET. PO SCH (08:10)
[2017-11-18] MEDS: GLIMEPIRIDE 2 MG TABLET. PO SCH (08:10)
--- NOTE | 2017-11-18 09:40 | PDOC ---
Infectious Disease Note Subjective: Subjective Pt says feels better LLE swelling, pain better today compared to yesterday no n/v/d/abdo pain/groin pain/cough Redness is improving ROS: ROS Negative except for above. Vital Signs: Vital Signs Vital Signs Date Time Temp Pulse Resp B/P (MAP) Pulse Ox O2 Delivery O2 Flow Rate FiO2 11/18/17 08:10 80 124/72 11/18/17 08:00 Nasal Cannula 2.0 11/18/17 07:00 97.9 20 90 97.9 Physical Exam: PHYSICAL EXAM GENERAL: AXOXO3 male in nad HEENT: Normal conjunctivae. Oral mucosa is pink and moist. LUNGS: Clear to auscultation. HEART: S1, S2. No murmur appreciated. Left-sided PPM/AICD. ABDOMEN: Obese, bowel sounds active, soft, nontender. EXTREMITIES: No gross edema or cyanosis. Small wound left great toe amputation site with callused edges. There is no redness, swelling or drainage. RUE- AV fistula site unremarkable. Medial left thigh down past knee is erythematous and warm.receding from previous markings no thigh or groin lesions SKIN: Warm, dry without rash. NEUROLOGIC: Alert and oriented x 3. Medications: Inpatient Meds: Current Medications Medications (Trade) Dose Ordered Sig/Susan Start Time Stop Time Status Last Admin Dose Admin Acetaminophen (Tylenol) 500 mg PRN Q6HRS PRN 11/15/17 09:00 Acetaminophen/ Codeine Phosphate (Tylenol #3) 1 tab PRN Q6HRS PRN 11/15/17 09:00 Acetaminophen/ Hydrocodone Bitart (Lortab 7.5/325) 1 tab PRN Q4HRS PRN 11/14/17 15:00 11/18/17 03:44 1 TAB Albumin Human 200 ml @ 200 mls/hr 1X PRN PRN 11/14/17 12:30 11/14/17 18:29 DC Albuterol Sulfate (Ventolin Neb Soln) 10 mg 1X ONCE 11/14/17 10:30 11/14/17 10:32 DC Bumetanide (Bumex) 2 mg DAILY 11/15/17 09:00 11/18/17 08:08 2 MG Cefepime HCl (Maxipime) 1 gm Q24H 11/14/17 16:00 11/17/17 16:02 1 GM Clonidine HCl (Catapres) 0.1 mg PRN Q1HR PRN 11/15/17 09:00 Clopidogrel Bisulfate (Plavix) 75 mg DAILYWSUP 11/14/17 17:00 11/17/17 17:11 75 MG Dextrose (Dextrose 50%-Water Syringe) 12.5 gm PRN Q15MIN PRN 11/15/17 09:00 11/17/17 13:36 12.5 GM Diphenhydramine HCl (Benadryl) 25 mg 1X PRN PRN 11/14/17 12:30 11/15/17 12:29 DC Fentanyl Citrate (Fentanyl 2ml Vial) 50 mcg 1X ONCE 11/14/17 10:00 11/14/17 10:01 DC 11/14/17 09:57 50 MCG Ferrous Sulfate (Feosol) 325 mg DAILY 11/15/17 09:00 11/18/17 08:08 325 MG Fluconazole (Diflucan) 100 mg DAILY 11/17/17 15:00 11/18/17 08:08 100 MG Fluoxetine HCl (PROzac) 20 mg DAILY 11/15/17 09:00 11/18/17 08:09 20 MG Gabapentin (Neurontin) 600 mg DAILY 11/16/17 09:00 11/18/17 08:08 600 MG Glimepiride (Amaryl) 2 mg DAILYWBKFT 11/15/17 08:00 11/18/17 08:10 2 MG Influenza Virus Vaccine (Afluria Trivalent [id number] Syringe) 0.5 ml ONCE ONCE 11/14/17 16:00 11/14/17 16:17 DC Info (PHARMACY MONITORING -- do not chart) 1 each PRN DAILY PRN 11/17/17 07:45 Insulin Human Lispro (HumaLOG) 0-9 UNITS TIDWMEALS 11/15/17 12:00 Insulin Human Regular (HumuLIN R VIAL) 10 unit 1X ONCE 11/14/17 10:30 11/14/17 10:32 DC 11/14/17 11:28 10 UNIT Labetalol HCl (Normodyne Iv Push) 10 mg PRN Q1HR PRN 11/14/17 12:30 11/15/17 12:29 DC Lactobacillus Rhamnosus (Culturelle) 1 cap BID 11/15/17 09:00 11/18/17 08:08 1 CAP Metoprolol Tartrate (Lopressor) 12.5 mg SuMoWeFr@0900 11/15/17 09:00 11/18/17 08:10 12.5 MG Nicotine (Nicoderm Cq 21mg) 1 patch DAILY 11/15/17 09:00 11/18/17 08:07 1 PATCH Non-Formulary Medication (Minocycline Hcl ) 100 cap BID 11/14/17 21:00 11/14/17 21:00 DC Nystatin (Nystop) 1 gabrielle BID 11/17/17 15:00 11/17/17 15:00 Cancel Ondansetron HCl (Zofran Odt) 4 mg PRN Q6HRS PRN 11/15/17 09:00 Ondansetron HCl (Zofran) 4 mg PRN Q6HRS PRN 11/15/17 09:00 Pantoprazole Sodium (Protonix) 40 mg DAILYAC 11/14/17 15:00 11/18/17 08:09 40 MG Piperacillin Sod/ Tazobactam Sod 3.375 gm/Sodium Chloride 50 ml @ 100 mls/hr 1X ONCE 11/14/17 09:45 11/14/17 10:14 DC 11/14/17 09:56 100 MLS/HR Sevelamer Carbonate (Renvela) 800 mg TIDWMEALS 11/14/17 17:00 11/18/17 08:08 800 MG Sodium Chloride 1,000 ml @ 400 mls/hr Q2H30M PRN 11/17/17 07:34 11/17/17 19:33 DC Tamsulosin HCl (Flomax) 0.4 mg DAILY 11/15/17 09:00 11/18/17 08:09 0.4 MG Vancomycin HCl (Vanco Per Pharmacy) 1 each PRN DAILY PRN 11/14/17 15:00 11/17/17 14:26 1 EACH Vancomycin HCl (Vancomycin Random Level) 1 each 1X ONCE 11/15/17 06:00 11/15/17 06:01 DC 11/15/17 06:00 1 EACH Vancomycin HCl 1.25 gm/Sodium Chloride 250 ml @ 166.667 mls/hr 1X ONCE 11/14/17 10:30 11/14/17 11:59 UNV Vancomycin HCl 500 mg/Sodium Chloride 100 ml @ 100 mls/hr QTUTHSA 11/17/17 16:00 11/17/17 16:03 100 MLS/HR Vancomycin HCl 2 gm/Sodium Chloride 500 ml @ 250 mls/hr 1X ONCE 11/14/17 10:45 11/14/17 12:44 DC 11/14/17 10:43 250 MLS/HR Vitamin B Complex/ Vitamin C (Jaz-Jose) 1 tab DAILY 11/15/17 09:00 11/18/17 08:07 1 TAB Vitamin D (Vitamin D3) 1,000 unit DAILY 11/15/17 09:00 11/18/17 08:10 1,000 UNIT Labs: Lab Laboratory Tests Test 11/17/17 13:26 11/17/17 13:50 11/17/17 16:17 11/17/17 21:07 Glucose (Fingerstick) 53 mg/dL (70-99) 106 mg/dL (70-99) 128 mg/dL (70-99) 185 mg/dL (70-99) Test 11/18/17 07:46 Glucose (Fingerstick) 142 mg/dL (70-99) Micro RUN DATE: 11/15/17 PAGE 1 RUN TIME: 815 [facility] [address] [place] [address] Jamie Sarah M.D., Legal Consultant PATIENT: CHARLIE YBARRA ACCT: [id number] LOC: [address] [place] [address] U : [id number] AGE/SX: 57/F ROOM: 578 REG : 11/14/[address]: POONAM CHRISTOPHER III DO : 1960 BED: 1 DIS : STATUS: ADM IN TLOC: SPEC #: [id number] KAYLI: 11/14/17 STATUS: COMP REQ #: [id number] RECD: 11/14/[address] [facility] DR: LOVELY PAYAN MD SOURCE: BLOOD ENTR: 11/14/[address] [facility] [address]: PAULY AU MD SPDC: ORDERED: BCULT Procedure Result BLOOD CULTURE Final GRAM POSITIVE COCCI 1 SET DRAWN, 2 OF 2 POSITIVE CALLED TO TABATHA JOEL RN IN 5 S BY Lamar WALLER,11/15/17,0815 SPECIMEN SENDING TO [facility] FOR FURTHER WORK UP Objective: Assessment: Grp B strep bacteremia 11/14. (2 of 2 bottles) ID and RICHARD pending; source likely LLE cellulitis Repeat BC 11/15 neg so far New-onset cellulitis of left leg Fever and chills resolved Bandemia CKD on HD via AV fistula DM PAD H/o MRSA N/V resolved Plan: Plan of Care dc vancomycin cefepime can be sent home on po keflex for a total of 14 days probiotics local care d/w QUINN Krishna MD Nov 18, 2017 09:40
[2017-11-18] MEDS ORDERED: Fluconazole PO (10:32)
[2017-11-18] MEDS ORDERED: CEPH-263 PO (10:32)
--- NOTE | 2017-11-18 10:36 | DISCH ---
DISCHARGE WITH HOME HEALTH DISCHARGE INFORMATION: Discharge Date: Nov 18, 2017 Condition on Discharge: Stable CODE STATUS: Code Status: Full HOME HEALTH: Face to Face: I certify this patient is under my care and that I, or a nurse practitioner or physician's investigative assistant working with me, had a face to face encounter that meets the physician face to face encounter requirements with this patient on []. Physical Therapy For: Evalulation/Treatment Occupational Therapy For: Evaluation/Treatment Home Health Aide For: Self-care POST DISCHARGE ORDERS: Activity Instructions for Disc: Activity as tolerated Weight Bearing Status after Di: As tolerated Bathing Instructions: Shower-keep dressing dry Wound/Incision Care: Change dressing CHECKS AFTER DISCHARGE: Checks after discharge: Check blood press - daily, Check blood sugar, ac/hs, Check your Temp as needed, Weigh Yourself Daily FOLLOW-UP: Follow up with: Dr. Nova TREATMENT/EQUIPMENT ORDERS: Adaptive Equipment Issued: None, Wheelchair CERTIFICATION STATEMENT: Certification Statement: Certification Statement: Based on the above finding, I certify that this patient is confined to the home and needs intermittent detention care, physical therapy and/or speech therapy, or continues to need occupational therapy.~ This patient is under my care, and I have initiated the establishment of the plan of care.~ This patient will be followed by myself or a community physician who will periodically review the plan of care. Home Meds Active Scripts Cephalexin (KEFLEX) 250 Mg Capsule, 1 CAP PO BID, #21 CAP Prov:EMEKA MARY MD 11/18/17 [Fluconazole] 100 MG TABLET No Conflict Check, 100 MG PO DAILY, #7 TAB Prov:EMEKA MARY MD 11/18/17 Hydrocodone Bit/Acetaminophen (HYDROCODONE-APAP 7.5-325 ) 1 Each Tablet, 1 TAB PO PRN Q4HRS PRN for PAIN for 14 Days, #60 TAB 0 Refills Prov:MILVIA CARRASCO MD 11/17/17 Clopidogrel Bisulfate (CLOPIDOGREL) 75 Mg Tablet, 75 MG PO DAILYWBKFT for 30 Days, #30 TAB 2 Refills Prov:LEVAR ASHTON MD 03/18/17 Pantoprazole Sodium (PANTOPRAZOLE SODIUM) 40 Mg Tablet.dr 40 MG PO DAILYAC for 30 Days, #30 TAB.SR Prov:LEVAR ASHTON MD 03/18/17 Glimepiride (AMARYL) 2 Mg Tablet, 2 MG PO DAILYWBKFT for 30 Days, #30 TAB Prov:LYNETTE MOSHER MD 10/17/16 Reported Medications Minocycline Hcl (MINOCYCLINE HCL) 100 Mg Capsule, 100 CAP PO BID, #60 CAP 3 Refills 11/14/17 Metoprolol Tartrate (METOPROLOL TARTRATE) 25 Mg Tablet, 12.5 MG PO for non dialysis days, #60 TAB 0 Refills 11/14/17 Cholecalciferol (Vitamin D3) (VITAMIN D3) 1,000 Unit Tablet, 1 TAB PO DAILY, # 30 TAB 5 Refills 05/17/17 Gabapentin (GABAPENTIN) 600 Mg Tablet, 600 MG PO [id number], TAB 05/17/17 Folic Acid/Vitamin B Comp W-C (DOMONIQUE-PENELOPE TABLET) 0.8 Mg Tablet, 0.8 MG PO DAILY , TAB 05/17/17 Ferrous Sulfate (FERROUS SULFATE) 325 Mg Tablet, 1 TAB PO DAILY, #30 TAB 3 Refills 05/17/17 Tamsulosin Hcl (TAMSULOSIN HCL) 0.4 Mg Cap.er.24h, 0.4 MG PO DAILY 10/11/16 Fluoxetine Hcl (FLUOXETINE HCL) 20 Mg Capsule, 20 MG PO DAILY, #3 10/11/16 Sevelamer Carbonate (RENVELA) 800 Mg Tablet, 800 MG PO TIDWMEALS, TAB with snacks between meals 10/11/16 Bumetanide (BUMETANIDE) 2 Mg Tablet, 1 TAB PO DAILY, #30 TAB 5 Refills 07/02/16 Discontinued Reported Medications Aspirin (ASPIRIN) 325 Mg Tablet, 325 MG PO DAILY, TAB 10/11/16 Acetaminophen (Acetaminophen) 325 Mg Capsule, 650 MG PO Q6HRS PRN for PAIN 04/22/16 EMEKA MARY MD Nov 18, 2017 10:36
--- NOTE | 2017-11-18 11:43 | PDOC ---
Renal-Progress Notes Subjective Notes Notes NO COMPLAINTS History of Present Illness Hx of present illness STABLE Vitals Vitals Vital Signs Date Time Temp Pulse Resp B/P (MAP) Pulse Ox O2 Delivery O2 Flow Rate FiO2 11/18/17 08:10 80 124/72 11/18/17 08:00 Nasal Cannula 2.0 11/18/17 07:00 97.9 20 90 97.9 Weight Weight [ ] I.O. Intake and Output Intake and Output 11/18/17 07:00 Intake Total 1760 ml Balance 1760 ml Intake Oral 1660 ml IV Total 100 ml # Voids 3 Labs Labs Laboratory Tests Test 11/17/17 13:26 11/17/17 13:50 11/17/17 16:17 11/17/17 21:07 Glucose (Fingerstick) 53 mg/dL (70-99) 106 mg/dL (70-99) 128 mg/dL (70-99) 185 mg/dL (70-99) Test 11/18/17 07:46 11/18/17 10:56 Glucose (Fingerstick) 142 mg/dL (70-99) 129 mg/dL (70-99) Micro Micro Microbiology 11/15/17 Blood Culture - Preliminary, Resulted NO GROWTH AFTER 3 DAYS 11/14/17 Urine Culture - Final, Complete 11/14/17 Urine Culture Result 1 (RICHARD) - Final, Complete Review of Systems Constitutional: yes: weakness, alert, oriented Ears/Nose/Throat: Yes: no symptom reported Eyes: Yes: no symptom reported Pulmonary: Yes no symptom reported Cardiovascular: Yes no symptom reported Gastrointestional: Yes: constipation Genitourinary: Yes: no symptom reported Musculoskeletal: Yes: muscle stiffness Skin: Yes color change Psychiatric/Neurological: Yes: no symptom reported Endocrine: Yes: no symptom reported Hematologic/Lymphatic: Yes: no symptom reported Physical Exam General Appearance: no apparent distress Skin: warm Respiratory: bilateral CTA Heart: S1S2 Abdomen: soft, bowel sounds present Genitourinary: bladder flat Extremities: pulses present Neurology: alert, oriented Musculoskeletal: Osteoarthritis Assessment Assessment IMP SEPSIS ANEMIA DM II HTN LLE CELLULITIS ESRD PLAN ANTIBIOTICS HD TOMORROW OP D/C PLANS NOTED WILL FOLLOW RITU PARSON MD Nov 18, 2017 11:43
== END 2017-11-18 11:59 | disposition home health service (06) | DRG 871 ==
LOC: ER 09:24 → 5 SOUTH 10:42
PROVIDERS: ADMIT Internal Medicine; ATTEND Internal Medicine
PROC: 5A1D70Z Performance of Urinary Filtration, Intermittent, Less than 6 Hours Per Day (ICD-10-PCS; principal; 2017-11-14)
PROC: 5A1D70Z Performance of Urinary Filtration, Intermittent, Less than 6 Hours Per Day (ICD-10-PCS; 2017-11-17)
DX: A41.9 Sepsis, unspecified organism (principal); N18.6 End stage renal disease; I13.2 Hypertensive heart and chronic kidney disease with heart failure and with stage 5 chronic kidney disease, or end stage renal disease; I42.0 Dilated cardiomyopathy; M86.8X7 Other osteomyelitis, ankle and foot; L02.214 Cutaneous abscess of groin; L03.116 Cellulitis of left lower limb; N25.81 Secondary hyperparathyroidism of renal origin; Z68.42 Body mass index [BMI] 45.0-49.9, adult; F17.200 Nicotine dependence, unspecified, uncomplicated; J44.9 Chronic obstructive pulmonary disease, unspecified; I50.9 Heart failure, unspecified; E11.21 Type 2 diabetes mellitus with diabetic nephropathy; E11.22 Type 2 diabetes mellitus with diabetic chronic kidney disease; E11.319 Type 2 diabetes mellitus with unspecified diabetic retinopathy without macular edema; K22.70 Barrett's esophagus without dysplasia; K21.9 Gastro-esophageal reflux disease without esophagitis; I25.10 Atherosclerotic heart disease of native coronary artery without angina pectoris; G47.30 Sleep apnea, unspecified; E78.5 Hyperlipidemia, unspecified; K75.9 Inflammatory liver disease, unspecified; D69.6 Thrombocytopenia, unspecified; D64.9 Anemia, unspecified; B95.1 Streptococcus, group B, as the cause of diseases classified elsewhere; K40.90 Unilateral inguinal hernia, without obstruction or gangrene, not specified as recurrent; E11.51 Type 2 diabetes mellitus with diabetic peripheral angiopathy without gangrene; F32.9 Major depressive disorder, single episode, unspecified; E66.9 Obesity, unspecified; Z95.810 Presence of automatic (implantable) cardiac defibrillator; Z90.710 Acquired absence of both cervix and uterus; Z90.5 Acquired absence of kidney; Z99.2 Dependence on renal dialysis; Z89.422 Acquired absence of other left toe(s); Z95.820 Peripheral vascular angioplasty status with implants and grafts; Z91.19 Patient's noncompliance with other medical treatment and regimen; Z89.412 Acquired absence of left great toe; Z83.3 Family history of diabetes mellitus; Z82.49 Family history of ischemic heart disease and other diseases of the circulatory system; Z88.8 Allergy status to other drugs, medicaments and biological substances; Z86.14 Personal history of Methicillin resistant Staphylococcus aureus infection
CPT/HCPCS: 36415; 70450; 71045; 74150; 80048; 80053; 80202; 81001; 82140; 82962; 83605; 83880; 85007; 85025; 85610; 85651; 85730; 86308; 87040; 87086; 87186; 87205; 87641; 87804; 93005; 93971; 96365; 96368; 96375; 99291; 99292; J0692; J1815; J2543; J3010; J3370; J7040; J7042

== ENCOUNTER → 2017-11-25 | Outpatient (CLI) | payer MEDICARE, OTHER ==
[2017-11-18 08:10] VITALS: BP 124/72
[~2017-11-25] MED LIST changes: +CEPH-263 PO; +Fluconazole PO; +MINO100C PO
== END | disposition home or self-care (01) ==
LOC: PMGWOUND 10:20
PROVIDERS: ATTEND Preventive Medicine Undersea and Hyperbaric Medicine
DX: T87.89 Other complications of amputation stump (principal); E11.621 Type 2 diabetes mellitus with foot ulcer; L97.523 Non-pressure chronic ulcer of other part of left foot with necrosis of muscle; I13.2 Hypertensive heart and chronic kidney disease with heart failure and with stage 5 chronic kidney disease, or end stage renal disease; E11.22 Type 2 diabetes mellitus with diabetic chronic kidney disease; N18.6 End stage renal disease; I50.22 Chronic systolic (congestive) heart failure; E11.21 Type 2 diabetes mellitus with diabetic nephropathy; E11.42 Type 2 diabetes mellitus with diabetic polyneuropathy; E11.36 Type 2 diabetes mellitus with diabetic cataract; E11.39 Type 2 diabetes mellitus with other diabetic ophthalmic complication; E11.319 Type 2 diabetes mellitus with unspecified diabetic retinopathy without macular edema; H40.89 Other specified glaucoma; E11.52 Type 2 diabetes mellitus with diabetic peripheral angiopathy with gangrene; I96 Gangrene, not elsewhere classified; E11.69 Type 2 diabetes mellitus with other specified complication; M86.8X7 Other osteomyelitis, ankle and foot; L84 Corns and callosities; F17.210 Nicotine dependence, cigarettes, uncomplicated; G89.29 Other chronic pain; M54.9 Dorsalgia, unspecified; E78.5 Hyperlipidemia, unspecified; G47.30 Sleep apnea, unspecified; J43.9 Emphysema, unspecified; E21.3 Hyperparathyroidism, unspecified; E78.00 Pure hypercholesterolemia, unspecified; M19.90 Unspecified osteoarthritis, unspecified site; K21.9 Gastro-esophageal reflux disease without esophagitis; I25.10 Atherosclerotic heart disease of native coronary artery without angina pectoris; Z99.2 Dependence on renal dialysis; Z79.4 Long term (current) use of insulin; E66.01 Morbid (severe) obesity due to excess calories; Z68.41 Body mass index [BMI] 40.0-44.9, adult; Z90.710 Acquired absence of both cervix and uterus; Z85.3 Personal history of malignant neoplasm of breast; Z85.828 Personal history of other malignant neoplasm of skin; Z86.19 Personal history of other infectious and parasitic diseases; Y83.5 Amputation of limb(s) as the cause of abnormal reaction of the patient, or of later complication, without mention of misadventure at the time of the procedure
CPT/HCPCS: 11042

== ENCOUNTER 2017-11-30 08:30 | Outpatient (CLI) | payer MEDICARE, OTHER ==
[~2017-11-30] VITALS: Ht 147.3 cm; Wt 99.8 kg
[2017-11-30] VITALS (12 sets, daily range): BP systolic 135–168; BP diastolic 55–67
[2017-11-30] MEDS ORDERED: ALBUMIN HUMAN 25% 100 ML IV ONE ×2 (10:02→10:15)
--- NOTE | 2017-11-30 14:28 | RAD ---
Ultrasound-guided paracentesis 11/30/2017 2:23 PM Procedure: The risks and benefits of the procedure were discussed the patient. Informed consent was obtained. A timeout procedure was performed. Sonographic evaluation of the abdomen was performed demonstrating ascites . The right lower quadrant was prepped and draped using maximum sterile barrier technique. 1% lidocaine without epinephrine was administered for local anesthesia. Real-time ultrasonographic guidance was used in passing a micropuncture needle into the collection. This was exchanged over a wire for a 6 Belgian dilator. 2.8 L of serous ascites was removed. The catheter was removed and pressure held to achieve hemostasis. A sterile dressing was applied. Impression: Successful ultrasound-guided paracentesis
== END 2017-11-30 11:40 | disposition home or self-care (01) ==
LOC: INTRAD 08:30
PROVIDERS: ATTEND Internal Medicine Gastroenterology
DX: R18.8 Other ascites (principal); Z91.030 Bee allergy status; Z88.2 Allergy status to sulfonamides; Z88.8 Allergy status to other drugs, medicaments and biological substances; Z88.1 Allergy status to other antibiotic agents; Z79.01 Long term (current) use of anticoagulants
CPT/HCPCS: 49083; C1729; C1892; C1894; P9046